=== PATIENT | female | born 1985 | race Caucasian/White ===

== ENCOUNTER 2023-05-11 22:40 | Emergency (ER) | payer OTHER, SELFPAY ==
[2023-05-11 22:53] VITALS: BP 139/80; PULSE 80; RESP 18; TEMP 36.6; O2SAT 97; BMI 48.2
--- NOTE | 2023-05-11 23:43 | ECG_ITS ---
The [facility] Test Date: 2023-05-11 Pat Name: NE DURHAM Department: Room: - Gender: Female Replacer: : 1985 Requested By: [id number] Order Number: [id number] Reading MD: ALEKSANDER GORMAN Measurements Intervals [place] Rate: 71 P: 69 GA: 164 QRS: 70 QRSD: 100 T: 48 QT: 382 QTc: 405 Interpretive Statements 1100 Sinus rhythm 9110 normal ECG No previous ECG available for comparison Electronically Signed On 05-12-2023 17:49:57 EDT by ALEKSANDER GORMAN
--- NOTE | 2023-05-11 23:43 | XR_ITS ---
The [address] [address] Patient Name: NE DURHAM MRN: [id number] date: 1985 Sex: F Assigned Patient Location: ER Current Patient Location: ER Accession/Order Number: [id number] Exam Date: 05/11/2023 23:45 Report Date: 05/12/2023 00:08 At the request of: CONCHITA VALDEZ Procedure: XR chest 1V CXR HISTORY: Shortness of breath. COMPARISON: None. TECHNIQUE: 1 view of the chest submitted for review. FINDINGS: The lungs are hyperaerated. Lines and tubes: None No acute focal infiltrate. Prominence of bronchopulmonary markings. No effusion. Cardiac silhouette measures within normal limits. Pulmonary vascularity is prominent. Osseous structures demonstrate postoperative changes of the thoracolumbar spine. XR/XR chest 1V IMPRESSION: Prominence of bronchopulmonary markings. Please correlate for viral pneumonia vs fluid overload. Electronically authenticated by: INGRID CAMACHO Date: 05/12/2023 00:08
[2023-05-11 23:59] LABS: Basophils Absolute Auto 0.1 10^3/uL (0.0-0.1); Basophils Percent Auto 0.4 % (0.2-2.0); Eosinophils Absolute Auto 0.1 10^3/uL (0.0-0.7); Eosinophils Percent Auto 0.9 % (0.9-7.0); Hematocrit 45.7 % (36.0-48.0); Hemoglobin 14.6 g/dL (12.0-16.0); Immature Granulocytes Abs Auto 0.05 10^3/uL (0.00-0.03); Immature Granulocytes Pct Auto 0.4 % (0.0-0.5); Lymphocytes Absolute Auto 3.1 10^3/uL (1.2-3.8); Lymphocytes Percent Auto 22.2 % (20.5-60.0); Mean Corpuscular HGB Conc 31.9 g/dL (29.9-35.2); Mean Corpuscular Hemoglobin 27.7 pg (26.7-34.0); Mean Corpuscular Volume 86.6 fL (81.0-99.0); Mean Platelet Volume 11.9 fL (9.5-13.5); Monocytes Absolute Auto 0.8 10^3/uL (0.3-0.8); Monocytes Percent Auto 5.9 % (1.7-12.0); Neutrophils Absolute Auto 9.8 10^3/uL (1.4-6.5); Neutrophils Percent Auto 70.2 % (43.0-75.0); Platelet Count 288 10^3/uL (150-450); Red Blood Count 5.28 10^6/uL (4.20-5.40); Red Cell Distribution Width 15.3 % (11.0-15.0)
[2023-05-12 00:16] LABS: Alanine Aminotransferase 27 U/L (14-59); Albumin Globulin Ratio 1.1; Albumin Level 3.8 g/dL (3.4-5.0); Alkaline Phosphatase 124 U/L (46-116); Anion Gap 9.6; Aspartate Amino Transferase 13 U/L (15-37); BUN Creatinine Ratio 22.1; Bilirubin Total 0.1 mg/dL (0.2-1.0); Calcium 8.7 mg/dL (8.5-10.1); Carbon Dioxide 27.5 mmol/L (21.0-32.0); Chloride 105 mmol/L (98-107); Estimated GFR (African America >60 (>=60); Estimated GFR (Non-African Ame >60 (>=60); Globulin 3.5 g/dL; Glucose 98 mg/dL (74-106); Potassium 4.1 mmol/L (3.5-5.1); Sodium 138 mmol/L (136-145); Total Protein 7.3 g/dL (6.4-8.2)
--- NOTE | 2023-05-12 00:20 | PC.NURSE ---
Patient states she is having chest pressure and becoming winded
[2023-05-12 00:29] VITALS: PULSE 71; RESP 18; O2SAT 97
[2023-05-12] MEDS: IPRATROPIUM/ALBUTEROL SULFATE 3 ML AMPUL.NEB IH (00:29)
[2023-05-12 00:36] VITALS: PULSE 76; RESP 20; O2SAT 96
[2023-05-12] MEDS: KETOROLAC TROMETHAMINE 30 MG/ML VIAL 15 MG IVP (01:07)
[2023-05-12] MEDS: AZITHROMYCIN 250 MG TABLET 500 MG PO (01:08)
--- NOTE | 2023-05-12 01:42 | ED.CHESTPAI1 ---
HPI - Chest Pain General Chief Complaint: Chest Pain Stated Complaint: chest pressure Time Seen by Provider: 05/11/23 23:42 Source: patient Mode of arrival: walk-in History of Present Illness HPI narrative: The patient presented to us with few days history of cough productive for whitish sputum associated with chest pain when taking a deep breath that is mostly to the right side of the chest, the patient also ran out of her inhaler she have history of smoking cigarettes within one pack per day No recent exposure to anybody with similar symptoms and the patient denying any abdominal pain nausea or vomiting She have history of CPAP and she thinks that the CPAP use increase her symptoms Related Data Previous Rx's Medication Instructions Recorded albuterol sulfate 90 mcg/actuation 1 inh inhalation Q6H PRN shortness 05/12/23 aerosol inhaler of breath or wheezing #6.7 grams azithromycin 250 mg tablet See Rx Instructions PO .COMPLEX #6 05/12/23 (Zithromax Z-Wolfgang) tabs guaifenesin 600 mg tablet, 600 mg PO BID PRN cough #10 tabs 05/12/23 extended release 12 hr (Mucinex) Allergies Allergy/AdvReac Type Severity Reaction Status Date / Time codeine Allergy Mild Rash Verified 05/11/23 22:53 Penicillins Allergy Unknown Verified 05/11/23 22:53 sulfamethoxazole AdvReac Mild itchy Verified 05/11/23 22:53 [From Bactrim] trimethoprim [From Bactrim] AdvReac Mild itchy Verified 05/11/23 22:53 Review of Systems ROS Status of ROS 10 or more systems reviewed and unremarkable except as noted in history and below PFSH PFSH Social History Smoking status: Current every day smoker Exam Narrative Exam Narrative: Nurses notes and vital signs reviewed and patient is not hypoxic. General: Well-appearing and in no apparent distress. Skin: Warm, dry, no pallor noted. No rash. Head: Normocephalic, atraumatic. Neck: Supple, non-tender. Eye: Pupils are equal, round and EOMI. No scleral icterus. Ears, Nose, Mouth, and Throat: TM are clear, no nasal mucosal hypertrophy. Oral mucosa is moist, no posterior oropharynx erythema, uvula is mid-line Cardiovascular: Regular Rate and Rhythm without murmur, gallop or rub. Respiratory: No accessory muscle use or respiratory distress. Lungs are clear to auscultation, no wheezing, rales or rhonchi Chest Wall: no tenderness Back: No midline thoracic or lumbar vertebral tenderness. No CVA tenderness Musculoskeletal: normal ROM, no calf or popliteal tenderness, no lower extremity edema/swelling GI: Abdomen is soft, non-distended. Normal bowel sounds. No masses appreciated. No tenderness to palpation. No rebound, guarding, or rigidity noted. Neurological: A&O x4. No cranial nerve dysfunction observed. No truncal ataxia. Moves all extremities. Sensation intact. Psychiatric: Cooperative and interactive. Normal mood and affect. Constitutional Vital Signs, click to edit/add: Last Vital Signs Temp 97.9 F 05/11/23 22:53 Pulse 76 05/12/23 00:36 Resp 20 05/12/23 00:36 BP 139/80 H 05/11/23 22:53 Pulse Ox 96 05/12/23 00:36 O2 Del Method Room Air 05/12/23 00:36 Course Vital Signs Vital signs: Vital Signs Temperature 97.9 F 05/11/23 22:53 Pulse Rate 80 05/11/23 22:53 Respiratory Rate 18 05/11/23 22:53 Blood Pressure 139/80 H 05/11/23 22:53 Pulse Oximetry 97 05/11/23 22:53 Oxygen Delivery Method Room Air 05/11/23 22:53 Temperature 97.9 F 05/11/23 22:53 Pulse Rate 76 05/12/23 00:36 Respiratory Rate 20 05/12/23 00:36 Blood Pressure 139/80 H 05/11/23 22:53 Pulse Oximetry 96 05/12/23 00:36 Oxygen Delivery Method Room Air 05/12/23 00:36 MDM - Chest Pain MDM Narrative Medical decision making narrative: EKG showing sinus rhythm with a heart rate of seventy-one no ST elevation or depression The patient's CBC and chemistry shows a leukocytosis otherwise insignificant Chest x-ray shows possible viral pneumonia and the patient troponin is negative The patient was provided with a breathing treatment in the Emergency Room after which she was feeling her pain is worse whenever she takes a deep breath The patient provided with Toradol in the Emergency Room as well as Z-Wolfgang discharge home with Z-Wolfgang as supportive care The patient is to followup with primary care physician in next 2-3 days or to return to the emergency department should any of the signs or symptoms worsen or new symptoms develop. The patient agrees with the following Diagnosis and Treatment plan and the patient will be discharged home. Lab Data Labs: Lab Results 05/11/23 Range/Units 23:50 WBC 14.0 H (4.0-11.0) 10^3/uL RBC 5.28 (4.20-5.40) 10^6/uL Hgb 14.6 (12.0-16.0) g/dL Hct 45.7 (36.0-48.0) % MCV 86.6 (81.0-99.0) fL MCH 27.7 (26.7-34.0) pg MCHC 31.9 (29.9-35.2) g/dL RDW 15.3 H (11.0-15.0) % Plt Count 288 (150-450) 10^3/uL MPV 11.9 (9.5-13.5) fL Neut % (Auto) 70.2 (43.0-75.0) % Lymph % (Auto) 22.2 (20.5-60.0) % Hodgeman % (Auto) 5.9 (1.7-12.0) % Eos % (Auto) 0.9 (0.9-7.0) % Baso % (Auto) 0.4 (0.2-2.0) % Neut # (Auto) 9.8 H (1.4-6.5) 10^3/uL Lymph # (Auto) 3.1 (1.2-3.8) 10^3/uL Hodgeman # (Auto) 0.8 (0.3-0.8) 10^3/uL Eos # (Auto) 0.1 (0.0-0.7) 10^3/uL Baso # (Auto) 0.1 (0.0-0.1) 10^3/uL Abs Immat Gran (auto) 0.05 H (0.00-0.03) 10^3/uL Imm/Tot Granulo (auto) 0.4 (0.0-0.5) % Sodium 138 (136-145) mmol/L Potassium 4.1 (3.5-5.1) mmol/L Chloride 105 (98-107) mmol/L Carbon Dioxide 27.5 (21.0-32.0) mmol/L Anion Gap 9.6 BUN 19.0 H (7.0-18.0) mg/dL Creatinine 0.86 (0.55-1.02) mg/dL Est GFR ( Amer) >60 (>=60) Est GFR (Non-Af Amer) >60 (>=60) BUN/Creatinine Ratio 22.1 Glucose 98 (74-106) mg/dL Calcium 8.7 (8.5-10.1) mg/dL Total Bilirubin 0.1 L (0.2-1.0) mg/dL AST 13 L (15-37) U/L ALT 27 (14-59) U/L Alkaline Phosphatase 124 H (46-116) U/L Troponin I High Sens 4.0 (4.0-51.3) pg/mL Total Protein 7.3 (6.4-8.2) g/dL Albumin 3.8 (3.4-5.0) g/dL Globulin 3.5 g/dL Albumin/Globulin Ratio 1.1 Discharge Plan Discharge Chief Complaint: Chest Pain Clinical Impression: Pneumonia Patient Disposition: Home, Self-Care Time of Disposition Decision: 00:57 Condition: Good Mode of Transportation: Private Vehicle Prescriptions / Home Meds: New guaifenesin [Mucinex] 600 mg tablet extended release 12hr 600 mg PO BID PRN (Reason: cough) Qty: 10 0RF azithromycin [Zithromax Z-Wolfgang] 250 mg tablet See Rx Instructions .ROUTE .COMPLEX Qty: 6 0RF Rx Instructions: For 250 mg dose pack: take 500 mg today (day 1), then 250 mg for 4 days (days 2-5) albuterol sulfate 90 mcg/actuation HFA aerosol inhaler 1 inh inhalation Q6H PRN (Reason: shortness of breath or wheezing) Qty: 6.7 0RF Instructions: Community Acquired Pneumonia (ED) Stand Alone Forms: Portal Instructions Referrals: Physician,Non-Staff, MD [Primary Care Provider] - 1 week
== END 2023-05-12 01:58 | disposition home or self-care (01) ==
PROVIDERS: Emergency Provider Emergency Medicine
DX: J18.9 Pneumonia, unspecified organism (principal); F17.210 Nicotine dependence, cigarettes, uncomplicated
CPT/HCPCS: 36415; 71045; 80053; 84484; 85025; 93005; 94640; 96374; 99285

== ENCOUNTER 2024-05-23 15:58 | Emergency (ER) | payer OTHER, SELFPAY ==
[2024-05-23] VITALS (14 sets, daily range): BP systolic 127–145; BP diastolic 64–75; PULSE 74–86; O2SAT 92–99; BMI 51.4
--- NOTE | 2024-05-23 16:08 | ED_ITS ---
HPI HPI - General Adult General Chief complaint: Shortness of Breath/Dyspnea Stated complaint: CHEST PAIN, SOB Time Seen by Provider: 05/23/24 16:03 Source: patient Mode of arrival: walk-in Limitations: no limitations History of Present Illness HPI narrative: 38-year-old female presents for shortness of breath. She has a history of asthma and ran out of her albuterol a few weeks ago. She has had no trauma or fever or productive cough. The pain seems to be on the left side of her chest and it comes and goes and she has had this for a long time. No vomiting or diarrhea. Related Data Home Medications ?Medication ?Instructions ?Recorded ?Confirmed alprazolam 1 mg tablet (Xanax) 1 mg PO BID PRN anxiety 05/23/24 05/23/24 aripiprazole 5 mg tablet 5 mg PO DAILY 05/23/24 05/23/24 dextroamphetamine-amphetamine 30 30 mg PO BID 05/23/24 05/23/24 mg tablet (Adderall) fluoxetine 40 mg capsule 40 mg PO DAILY 05/23/24 05/23/24 Previous Rx's ?Medication ?Instructions ?Recorded albuterol sulfate 90 mcg/actuation 2 inh inhalation Q4H PRN shortness 05/23/24 aerosol inhaler of breath or wheezing #8.5 grams albuterol sulfate 90 mcg/actuation 2 inh inhalation Q4H PRN shortness 05/23/24 aerosol inhaler of breath or wheezing #8.5 grams Allergies Allergy/AdvReac Type Severity Reaction Status Date / Time codeine Allergy Mild Rash Verified 05/11/23 22:53 Penicillins Allergy Unknown Verified 05/11/23 22:53 sulfamethoxazole AdvReac Mild itchy Verified 05/11/23 22:53 [From Bactrim] trimethoprim [From Bactrim] AdvReac Mild itchy Verified 05/11/23 22:53 Opioid HPI Opioid Management Most Recent Opioid Data: No Data to Display Review of Systems ROS Narrative A ten point review of systems is negative except as noted above. PFSH PFSH Social History Smoking status: Current every day smoker Exam Narrative Exam Narrative: Nurses note and vital signs reviewed and patient is not hypoxic. General: The patient appears in no apparent distress. She is speaking in full sentences. Skin: Warm, dry, no pallor noted. There is no rash noted. Head: Normocephalic, atraumatic Eye: Normal conjunctiva, no drainage Ears, Nose, Mouth, and Throat: oral mucosa is moist. Nares patent. Cardiovascular: Regular Rate and Rhythm Respiratory: Patient is in no distress, no accessory muscle use, lungs are clear to auscultation, no wheezing, rales or rhonchi. Good air movement present. Back: non-tender GI: Normal bowel sounds, no tenderness to palpation, no masses appreciated. No rebound, guarding, or rigidity noted. Musculoskeletal: The patient has no evidence of calf tenderness, no pitting edema, symmetrical pulses noted bilaterally Neurological: A&O, normal speech Psychiatric: Cooperative Constitutional Vital Signs, click to edit/add: Last Vital Signs Pulse 86 05/23/24 17:50 Resp 21 H 05/23/24 17:50 BP 127/64 05/23/24 17:30 Pulse Ox 95 05/23/24 17:50 O2 Del Method Room Air 05/23/24 16:14 Course Vital Signs Vital signs: Vital Signs Pulse Rate 79 05/23/24 16:03 Respiratory Rate 18 05/23/24 16:03 Blood Pressure 133/75 05/23/24 16:03 Pulse Oximetry 96 05/23/24 16:03 Oxygen Delivery Method Room Air 05/23/24 16:03 Pulse Rate 86 05/23/24 17:50 Respiratory Rate 21 H 05/23/24 17:50 Blood Pressure 127/64 05/23/24 17:30 Pulse Oximetry 95 05/23/24 17:50 Oxygen Delivery Method Room Air 05/23/24 16:14 Medical Decision Making [facility] Narrative Medical decision making narrative: Chest x-ray report is reviewed. She has no pneumonia type symptoms and I have no clinical suspicion of pneumonia. Her workup otherwise is negative and she is prescribed albuterol. She states she is trying to get a new family doctor so she can have her Adderall and Xanax prescribed. She is able to be discharged home. Treatment diagnosis and follow-up were discussed with the patient. Differential Diagnosis Differential Diagnosis: Asthma, pneumothorax, atypical chest pain Imaging Data Chest x-ray: Radiologist's impression: ITS Impressions Chest X-Ray 05/23/24 16:08 IMPRESSION: Interstitial opacity in the right lung base. Please correlate for pneumonia versus atelectasis. Electronically authenticated by: INGRID CAMACHO Date: 05/23/2024 17:30 ECG Data Attestation: I personally reviewed and interpreted this ECG as follows: (EKG on my interpretation shows normal sinus rhythm without acute change and rate of 73.) Discharge Plan Discharge Stand Alone Forms: Portal Instructions Chief Complaint: Shortness of Breath/Dyspnea Clinical Impression: Dyspnea, Chest pain Patient Disposition: Home, Self-Care Time of Disposition Decision: 17:57 Condition: Good Mode of Transportation: Private Vehicle Prescriptions / Home Meds: New albuterol sulfate 90 mcg/actuation HFA aerosol inhaler 2 inh inhalation Q4H PRN (Reason: shortness of breath or wheezing) Qty: 8.5 0RF albuterol sulfate 90 mcg/actuation HFA aerosol inhaler 2 inh inhalation Q4H PRN (Reason: shortness of breath or wheezing) Qty: 8.5 0RF Discontinued albuterol sulfate 90 mcg/actuation HFA aerosol inhaler 2 puff INHALATION Q4H PRN (Reason: shortness of breath or wheezing) No Action aripiprazole 5 mg tablet 5 mg PO DAILY fluoxetine 40 mg capsule 40 mg PO DAILY dextroamphetamine-amphetamine [Adderall] 30 mg tablet 30 mg PO BID Rx Instructions: administer doses at least 4-6 hours apart alprazolam [Xanax] 1 mg tablet 1 mg PO BID PRN (Reason: anxiety) Print Language: Latvian Instructions: Chest Pain (ED), Asthma (ED) Referrals: Physician,Non-Staff, MD [Primary Care Provider] - 1 week
--- NOTE | 2024-05-23 16:08 | ECG_ITS ---
The [facility] Test Date: 2024-05-23 Pat Name: NE DURHAM Department: Room: - Gender: Female Manager Of Patient: : 1985 Requested By: Order Number: [id number] Reading MD: ALEKSANDER GORMAN Measurements Intervals [place] Rate: 73 P: 60 MD: 158 QRS: 78 QRSD: 98 T: 50 QT: 380 QTc: 406 Interpretive Statements 1100 Sinus rhythm 2420 RSR (QR) in lead V1/V2, consistent with right ventricular conduction delay 9130 borderline ECG Compared to ECG 05/11/2023 23:03:49 No significant changes Electronically Signed On 05-24-2024 16:48:19 EDT by ALEKSANDER GORMAN
--- NOTE | 2024-05-23 16:08 | XR_ITS ---
The [address] [address] Patient Name: NE DURHAM MRN: [id number] date: 1985 Sex: F Assigned Patient Location: ER Current Patient Location: ER Accession/Order Number: [id number] Exam Date: 05/23/2024 16:25 Report Date: 05/23/2024 17:30 At the request of: LISA DIAZ Procedure: XR chest 1V CXR HISTORY: Shortness of breath left-sided chest pain with fatigue. Patient ran out of his asthma medication/inhaler 2 weeks ago. COMPARISON: 05/11/2023 chest x-ray TECHNIQUE: 1 view chest submitted for review. FINDINGS: The lungs are adequately expanded without evidence of acute infiltrate or effusion. The cardiac silhouette measures within normal. Pulmonary vascularity is unremarkable. Osseous structures demonstrate postoperative changes of the spine. XR/XR chest 1V IMPRESSION: Interstitial opacity in the right lung base. Please correlate for pneumonia versus atelectasis. Electronically authenticated by: INGRID CAMACHO Date: 05/23/2024 17:30
[2024-05-23] MEDS: ALBUTEROL SULFATE 2.5 MG/3 ML VIAL NEB IH (16:14)
== END 2024-05-23 18:09 | disposition home or self-care (01) ==
PROVIDERS: Emergency Provider Emergency Medicine
DX: R06.00 Dyspnea, unspecified (principal); R07.9 Chest pain, unspecified; J45.909 Unspecified asthma, uncomplicated; F17.210 Nicotine dependence, cigarettes, uncomplicated
CPT/HCPCS: 71045; 93005; 94640; 99284

== ENCOUNTER 2024-08-20 19:35 | Emergency (ER) | payer OTHER, SELFPAY ==
[2024-08-20 19:41] VITALS: BP 138/78; PULSE 80; TEMP 36.7; O2SAT 97; BMI 53.1
--- OUTSIDE RECORDS SUMMARY | 2024-08-20 19:44 | XMS_ITS | CCD ---
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 Translations: [Patellofemoral disorders, left knee] Chronic Menstrual disorders (20 sources) Menometrorrhagia; Translations: [Excessive and frequent menstruation with irregular cycle] 05-30-2022 Chronic Mood disorders (6 sources) Bipolar disorder; Translations: [Depressive disorder] 02-28-2023 Chronic Mycoses (1 source) Candidal intertrigo; Translations: [Candidiasis of skin and nail] 03-31-2024 Episodic Nausea and vomiting (12 sources) Nausea and vomiting; Translations: [Nausea with vomiting, unspecified] 12-28-2022 Episodic Nonmalignant breast conditions (4 sources) Fibroadenosis of breast; Translations: [Breast fibroadenosis] Chronic Nonspecific chest pain (20 sources) Chest pain; Translations: [Chest pain, unspecified] Onset: 4 01-26-2020 Episodic Open wounds of extremities (14 sources) Laceration of finger; Translations: [Laceration without foreign body of other finger without damage to nail, initial encounter] 12-24-2022 Episodic Other acquired deformities (4 sources) Acquired unequal leg length; Translations: [Unequal limb length (acquired), unspecified femur] Episodic Other aftercare (1 source) Other termite treater (current) drug therapy; Translations: [OTH LONG-TERM CURRENT DRUG THERAPY] Onset: 3 Episodic Other and unspecified benign neoplasm (20 sources) Benign teratoma of ovary; Translations: [Benign neoplasm of unspecified ovary] 02-22-2022 Episodic Other bone disease and musculoskeletal deformities (1 source) Idiopathic kyphoscoliosis; Translations: [Other idiopathic scoliosis, site unspecified] Onset: 9 02-24-2009 Chronic Other connective tissue disease (6 sources) Pain in lower limb; Translations: [Pain in right leg] 03-06-2023 Episodic Other female genital disorders (20 sources) Abnormal uterine bleeding; Translations: [Other specified abnormal uterine and vaginal bleeding] 05-29-2022 Chronic Other female genital disorders (20 sources) Moderate vaginal bleeding; Translations: [Other specified abnormal uterine and vaginal bleeding] 02-04-2018 Chronic Other female genital disorders (20 sources) Abnormal vaginal bleeding; Translations: [Abnormal uterine and vaginal bleeding, unspecified] 06-05-2022 Chronic Other female genital disorders (20 sources) Vaginal bleeding; Translations: [Abnormal uterine and vaginal bleeding, unspecified] 05-28-2021 Chronic Other female genital disorders (7 sources) Other specified abnormal uterine and vaginal bleeding; Translations: [Other disorders of menstruation and other abnormal bleeding from female genital tract] 05-30-2022 Chronic Other gastrointestinal disorders (20 sources) Pale feces; Translations: [Other fecal abnormalities] 11-26-2020 Episodic Other lower respiratory disease (4 sources) Dyspnea; Translations: [Shortness of breath] 05-20-2023 Episodic Other nervous system disorders (1 source) Chronic pain syndrome; Translations: [Chronic pain syndrome] Onset: 4 04-12-2014 Chronic Other nervous system disorders (1 source) Other acute postprocedural pain; Translations: [Other acute postprocedural pain] Onset: 8 Episodic Other nervous system disorders (19 sources) Acute postoperative pain; Translations: [Other acute postprocedural pain] 07-09-2022 Episodic Other nervous system disorders (4 sources) Paresthesia; Translations: [Paresthesia of skin] 03-18-2023 Episodic Other non-traumatic joint disorders (17 sources) Pain in elbow; Translations: [Pain in unspecified elbow] 08-04-2022 Episodic Other non-traumatic joint disorders (5 sources) Pain in left knee; Translations: [Acute pain of left knee] Episodic Other nutritional; endocrine; and metabolic disorders (1 source) Obesity; Translations: [Obesity, unspecified] Onset: 8 08-20-2018 Chronic Other nutritional; endocrine; and metabolic disorders (13 sources) Morbid obesity; Translations: [Morbid (severe) obesity due to excess calories] 01-15-2023 Chronic Other nutritional; endocrine; and metabolic disorders (3 sources) Body mass index 40+ - severely obese; Translations: [Morbid (severe) obesity due to excess calories] Chronic Other nutritional; endocrine; and metabolic disorders (1 source) Morbid (severe) obesity due to excess calories Chronic Other screening for suspected conditions (not mental disorders or infectious disease) (12 sources) Electrocardiogram abnormal; Translations: [Abnormal electrocardiogram [ECG] [EKG]] 12-28-2022 Episodic Residual codes; unclassified (6 sources) Obstructive sleep apnea syndrome; Translations: [Obstructive sleep apnea (adult) (pediatric)] Chronic Residual codes; unclassified (1 source) Obstructive sleep apnea (adult) (pediatric) Chronic Residual codes; unclassified (14 sources) Tobacco user; Translations: [Tobacco use] Onset: 8 01-02-2018 Episodic Residual codes; unclassified (12 sources) Sleep deprivation; Translations: [Sleep deprivation] 12-28-2022 Episodic Residual codes; unclassified (1 source) Chronic back pain 02-28-2023 Episodic Skin and subcutaneous tissue infections (2 sources) Paronychia; Translations: [Paronychia] Onset: 4 03-01-2024 Episodic Spondylosis; intervertebral disc disorders; other back problems (9 sources) Bilateral inflammation of sacroiliac joint; Translations: [Sacroiliitis, not elsewhere classified] Onset: 8 08-20-2018 Chronic Spondylosis; intervertebral disc disorders; other back problems (20 sources) Low back pain; Translations: [Lumbago] Onset: 9 02-24-2009 Episodic Sprains and strains (18 sources) Strain of neck muscle; Translations: [Strain of muscle, fascia and tendon at neck level, initial encounter] 07-14-2022 Episodic Substance-related disorders (6 sources) Nicotine dependence, cigarettes, uncomplicated; Translations: [Smoker] Onset: 3 02-28-2023 Chronic Comment on above: Added secondary to d ocumentation in Social History. Superficial injury; contusion (20 sources) Contusion of left lower leg; Translations: [Contusion of left lower leg, initial encounter] 02-13-2022 Episodic Urinary tract infections (20 sources) Pyelonephritis; Translations: [Tubulo-interstitial nephritis, not specified as acute or chronic] 02-23-2022 Episodic Viral infection (20 sources) Disease caused by 2019-nCoV; Translations: [COVID-19] 05-31-2022 Episodic Past or Other Problems Problem Classification Problem Date Documented Date Episodic/Chronic Abdominal pain (20 sources) Chronic pelvic pain of female; Translations: [Pelvic and perineal pain] Onset: 11-15-2023 05-30-2022 Episodic Cancer of cervix (2 sources) Carcinoma in situ of cervix, unspecified; Translations: [Cervical intraepithelial neoplasia grade III with severe dysplasia] Onset: 12-30-2017 03-03-2018 Episodic Genitourinary symptoms and ill-defined conditions (1 source) Frequency of micturition; Translations: [Frequency of micturition] Onset: 11-15-2023 Episodic Malaise and fatigue (20 sources) Fatigue; Translations: [Other fatigue] Onset: 05-12-2023 06-05-2022 Episodic Other connective tissue disease (1 source) H/O: musculoskeletal disease; Translations: [Personal history of other diseases of the musculoskeletal system and connective tissue] Onset: 04-12-2014 04-12-2014 Episodic Other connective tissue disease (1 source) Muscle pain; Translations: [Myalgia and myositis, unspecified] Onset: 04-12-2014 04-12-2014 Episodic Other connective tissue disease (1 source) History of fusion of thoracic spine; Translations: [Arthrodesis status] Onset: 08-20-2018 08-20-2018 Episodic Other ear and sense organ disorders (3 sources) Otalgia, left ear; Translations: [OTALGIA LEFT EAR] Onset: 11-08-2022 Episodic Other ear and sense organ disorders (1 source) Impacted cerumen, left ear; Translations: [IMPACTED CERUMEN LEFT EAR] Onset: 11-09-2022 Episodic Other lower respiratory disease (1 source) Shortness of breath; Translations: [Shortness of breath] Onset: 05-12-2023 Episodic Other upper respiratory infections (20 sources) Upper respiratory infection; Translations: [Acute upper respiratory infection, unspecified] Onset: 08-04-2023 04-07-2022 Episodic Otitis media and related conditions (1 source) Otitis media, unspecified, right ear; Translations: [OTITIS MEDIA UNSPECIFIED RIGHT EAR] Onset: 11-09-2022 Episodic Residual codes; unclassified (1 source) History of clinical finding in subject; Translations: [Patient's noncompliance with other medical treatment and regimen] Onset: 04-12-2014 04-12-2014 Episodic Results Test Name Value Interpretation Reference Range Facility Activated partial thrombopla stin time (aPTT) in platelet poor plasma by coagulation aOrdered By: Keith Oseguera on 03-31-2024 aPTT Coag (PPP) [Time] 30.4 s 25.1-36.5 [facility] Comment on above: A hematocrit value g reater than 55% may lead to inaccurate results in coagulation testing. Patients having hematocrit values >55% require a special collection tube for coagulation studies. Please contact the laboratory at [phone] for redraw instructions. Automated basophil %Ordered By: Keith Oseguera on 03-31-2024 Basophils/100 WBC (Bld) 1.2 % Normal . [facility] Comment on above: Performed By: #### P TT, CK, BNP, BMP, PT, CBC, HS TROP #### [facility] [address] [place] [address] Automated basophil countOrde red By: Keith Oseguera on 03-31-2024 Basophils (Bld) [#/Vol] 0.1 10*3/uL Normal 0.0-0.2 [facility] Comment on above: Result Comment: PERF ORMED BY: [place] [address] PATHOLOGIST PERSONAL FINANCIAL COUNSELOR GUERLINE STANLEY M.D. Performed By: #### P TT, CK, BNP, BMP, PT, CBC, HS TROP #### [address] Automated blood monocyte cou ntOrdered By: Keith Oseguera on 03-31-2024 Monocytes (Bld) [#/Vol] 0.7 10*3/uL Normal 0.0-0.8 [facility] Comment on above: Performed By: #### P TT, CK, BNP, BMP, PT, CBC, HS TROP #### [address] Automated eosinophil %Ordere d By: Keith Oseguera on 03-31-2024 Eosinophils/100 WBC (Bld) 1.3 % Normal . [facility] Comment on above: Performed By: #### P TT, CK, BNP, BMP, PT, CBC, HS TROP #### [address] Automated eosinophil countOr dered By: Keith Oseguera on 03-31-2024 Eosinophils (Bld) [#/Vol] 0.1 10*3/uL Normal 0.0-0.45 [facility] Comment on above: Performed By: #### P TT, CK, BNP, BMP, PT, CBC, HS TROP #### [address] Automated monocyte %Ordered By: Keith Oseguera on 03-31-2024 Monocytes/100 WBC (Bld) 7.0 % Normal . [facility] Comment on above: Performed By: #### P TT, CK, BNP, BMP, PT, CBC, HS TROP #### [address] Automated neutrophil %Ordere d By: Keith Oseguera on 03-31-2024 Neutrophils/100 WBC (Bld) 61.4 % Normal . [facility] Comment on above: Performed By: #### P TT, CK, BNP, BMP, PT, CBC, HS TROP #### [address] BNP ser/plasOrdered By: Kg Oseguera on 03-31-2024 Natriuretic peptide B (Bld) [Mass/Vol] 10.0 pg/mL Normal 5-100 [facility] Comment on above: Result Comment: PERF ORMED BY: [place] [address] PATHOLOGIST PERSONAL FINANCIAL COUNSELOR GUERLINE STANLEY M.D. Performed By: #### P TT, CK, BNP, BMP, PT, CBC, HS TROP #### [address] Basic Metabolic Panelon Creatinine Clr Calc Pharmacy 171.54 Normal [facility] Comment on above: Result Comment: PERF ORMED BY: [place] [address] PATHOLOGIST PERSONAL FINANCIAL COUNSELOR GUERLINE STANLEY M.D. Performed By: #### P TT, CK, BNP, BMP, PT, CBC, HS TROP #### [place] [id number] [facility] GFR/1.73 sq M.predicted MDRD (S/P/Bld) [Vol rate/Area] mL/min/{1.73_m2} Normal [facility] Comment on above: Performed By: #### P TT, CK, BNP, BMP, PT, CBC, HS TROP #### [place] [id number] [facility] Bilirubin Test strip Ql (U)O rdered By: Keith Oseguera on 03-31-2024 Bilirubin Ql (U) Negative Negative [facility] COVID CepheidOrdered By: Dusty Oseguera on 03-31-2024 SARS-CoV-2 (COVID-19) Ab IA Ql Negative Negative [facility] Comment on above: This is a duplicate Cepheid Xpert Xpress CoV-2/Flu/RSV Plus RNA by RT-PCR result to be used for statistical tracking purpose only. SARS-CoV-2 (COVID-19) RNA JUDIT+probe Ql (Unsp spec) [facility] COVID-19 / Flu A/B / RSV PCR on 03-31-2024 SARS-CoV-2 (COVID-19) RNA JUDIT+probe Ql (Unsp spec) COVID-19 Cepheid Result Negative for SARS-CoV-2 RNA by RT-PCR Flu A Cepheid Result Negative for Flu A RNA by RT-PCR Flu B Cepheid Result Negative for Flu B RNA by RT-PCR RSV Cepheid Result Negative for RSV RNA by RT-PCR COVID19 Blank Space Reference: Negative COVID19 Blank Space Cepheid Disclaimer The Cepheid Xpert Xpress CoV-2/Flu/RSV Plus has Cepheid Disclaimer not been FDA cleared or approved; this test has Cepheid Disclaimer been authorized by FDA under an EUA for use by Cepheid Disclaimer authorized laboratories; this test has been Cepheid Disclaimer authorized only for the simultaneous qualitative Cepheid Disclaimer detection and differentiation of nucleic acids from Cepheid Disclaimer SARS-CoV-2, influenza A, influenza B, and Cepheid Disclaimer respiratory syncytial virus (RSV), and not for any Cepheid Disclaimer other viruses or pathogens; and this test is only Cepheid Disclaimer authorized for the duration of the declaration that Cepheid Disclaimer circumstances exist justifying the authorization of Cepheid Disclaimer emergency use of in vitro diagnostic tests for Cepheid Disclaimer detection and/or diagnosis of COVID-19 under Cepheid Disclaimer Section 564(b)(1) of the Act, 21 U.S.C. 360bbb- Cepheid Disclaimer 3(b)(1), unless the authorization is terminated or Cepheid Disclaimer revoked sooner. PERFORMED BY: [facility] [address] [place] [address] PATHOLOGIST PERSONAL FINANCIAL COUNSELOR GUERLINE STANLEY M.D. Normal [facility] Comment on above: Performed By: #### C EPHEID NEG, COVID19 FLU RSV #### [facility] [address] [place] [address] [facility] Calcium [Mass/volume] in Ser um or PlasmaOrdered By: Keith Oseguera on 06-04-2024 Calcium [Mass/Vol] 9.5 mg/dL Normal 8.6-10.3 [facility] Comment on above: Performed By: #### P TT, CK, BNP, BMP, PT, CBC, HS TROP #### [address] Carbon dioxide, total [Moles /volume] in Serum or PlasmaOrdered By: Keith Oseguera on 03-31-2024 CO2 [Moles/Vol] 26.8 mmol/L Normal 21.0-31.0 [facility] Comment on above: Performed By: #### P TT, CK, BNP, BMP, PT, CBC, HS TROP #### [facility] [address] [place] [address] Cepheid COVID PCR Negativeon 03-31-2024 SARS-CoV-2 (COVID-19) RNA JUDIT+probe Ql (Unsp spec) Negative Normal Negative [facility] Comment on above: Result Comment: This is a duplicate Cepheid Xpert Xpress CoV-2/Flu/RSV Plus RNA by RT-PCR result to be used for statistical tracking purpose only. PERFORMED BY: [place] [address] PATHOLOGIST PERSONAL FINANCIAL COUNSELOR GUERLINE STANLEY M.D. Performed By: #### C EPHEID NEG, COVID19 FLU RSV #### [address] Chlamydia/GC Amplificationon 03-31-2024 Chlamydia Trachomotis, JUDIT Negative Normal Negative [facility] Comment on above: Performed By: #### U HCG, UA #### [address] Neisseria Gonorrhoeae, JUDIT Negative Normal Negative [facility] Comment on above: Result Comment: Perf ormed at: =G - [facility] [address] [id number] Manager Technology: Miryam Olsen MD, Phone: [phone] PERFORMED BY: [place] [address] PATHOLOGIST PERSONAL FINANCIAL COUNSELOR GUERLINE STANLEY M.D. Performed By: #### U HCG, UA #### [address] Chloride [Moles/volume] in S gale or PlasmaOrdered By: Keith Oseguera on 03-31-2024 Chloride [Moles/Vol] 103 mmol/L Normal 98-107 [facility] Comment on above: Performed By: #### P TT, CK, BNP, BMP, PT, CBC, HS TROP #### [address] Color of Urine by AutoOrdere d By: Keith Oseguera on 03-31-2024 Color (U) Light-yellow Normal Yellow [facility] Comment on above: Order Comment: Name Collection Type:: Clean-Voided Midstream Performed By: #### U HCG, UA #### [address] Complete Blood Count Auto Di ffon 03-31-2024 Mean Corpuscular HGB Conc 32.9 g/dL Normal 32.0-35.0 [facility] Comment on above: Performed By: #### P TT, CK, BNP, BMP, PT, CBC, HS TROP #### [address] Monocytes/100 WBC (Bld) 17.93 % Normal 0.00-20.00 [facility] Comment on above: Performed By: #### P TT, CK, BNP, BMP, PT, CBC, HS TROP #### [address] NRBC% 0.1 /100{WBC} Normal 0-0.5 [facility] Comment on above: Performed By: #### P TT, CK, BNP, BMP, PT, CBC, HS TROP #### [address] Creatine kinase [Enzymatic a ctivity/volume] in Serum or PlasmaOrdered By: Keith Oseguera on 03-31-2024 CK [Catalytic activity/Vol] 83 U/L Normal 30-223 [facility] Comment on above: Performed By: #### C EPHEID NEG, COVID19 FLU RSV #### [facility] [address] Creatinine [Mass/volume] in Serum or PlasmaOrdered By: Keith Oseguera on 03-31-2024 Creatinine [Mass/Vol] 0.59 mg/dL Low 0.60-1.20 [facility] Comment on above: Performed By: #### P TT, CK, BNP, BMP, PT, CBC, HS TROP #### [facility] [address] Erythrocyte distribution wid th [Ratio] by Automated countOrdered By: Keith Oseguera on 03-31-2024 Erythrocyte distribution width (RBC) [Ratio] 14.4 % Normal 11.9-15.3 [facility] Comment on above: Performed By: #### P TT, CK, BNP, BMP, PT, CBC, HS TROP #### [address] Erythrocytes [#/volume] in B lood by Automated countOrdered By: Keith Oseguera on 03-31-2024 RBC (Bld) [#/Vol] 5.36 10*6/uL High 3.60-5.00 [facility] Comment on above: Performed By: #### P TT, CK, BNP, BMP, PT, CBC, HS TROP #### [address] Glucose [Mass/volume] in Ser um or PlasmaOrdered By: Keith Oseguera on 03-31-2024 Glucose [Mass/Vol] 106 mg/dL High 70-100 [facility] Comment on above: ADA recommended refe rence rangeRandom Glucose Reference Range is dependent on time and content of last meal. Glucose of more than 200 mg/dL in a nonstressed, ambulatory subject supports the diagnosis of Diabetes Mellitus. Result Comment: [place] om Glucose Reference Range is dependent on time and content of last meal. Glucose of more than 200 mg/dL in a nonstressed, ambulatory subject supports the diagnosis of Diabetes Mellitus. ADA recommended reference range Performed By: #### P TT, CK, BNP, BMP, PT, CBC, HS TROP #### [facility] [address] [place] [address] [place] Glucose [Mass/volume] in Uri ne by Test stripOrdered By: Keith Osgeuera on 03-31-2024 Glucose Test strip (U) [Mass/Vol] Normal mg/dL Normal [facility] HCG ( test) IA.rapi d Ql (U)Ordered By: Keith Oseguera on 03-31-2024 HCG ( test) Ql (U) Negative [facility] HCG,Urineon 03-31-2024 Beta HCG ( test) Ql (U) Negative Normal [facility] Comment on above: Order Comment: Name Collection Type:: Clean-Voided Midstream Result Comment: PERF ORMED BY: [place] [address] PATHOLOGIST PERSONAL FINANCIAL COUNSELOR GUERLINE STANLEY M.D. Performed By: #### U HCG, UA #### [address] Hematocrit [Volume Fraction] of Blood by Automated countOrdered By: Keith Oseguera on 03-31-2024 Hematocrit (Bld) [Volume fraction] 45.3 % Normal 34.0-46.4 [facility] Comment on above: Performed By: #### P TT, CK, BNP, BMP, PT, CBC, HS TROP #### [address] Hemoglobin Test strip Ql (U) Ordered By: Keith Oseguera on 03-31-2024 Hemoglobin Ql (U) Negative Negative [facility] Hemoglobin [Mass/volume] in BloodOrdered By: Keith Oseguera on 03-31-2024 Hemoglobin (Bld) [Mass/Vol] 14.9 g/dL Normal 11.8-15.4 [facility] Comment on above: Performed By: #### P TT, CK, BNP, BMP, PT, CBC, HS TROP #### [place] [address] [place] INR in Platelet poor plasma by Coagulation assayOrdered By: Keith Oseguera on 03-31-2024 INR Coag (PPP) [Relative time] 1.0 {INR} Normal [facility] Comment on above: INR Therapeutic Rang e A) Pre- and Peroperative OAT started two weeks before surgery. NOT HIP SURGERY: 1.5 - 2.5 HIP SURGERY: 2 - 3B) Primary and secondary prevention of venous THROMBOSIS: 2 - 3C) Active venous thrombosis, pulmonary embolismand prevention of recurrent venous thrombosis: 2 - 3D) Prevention of arterial thromboembolismincluding patients with mechanical heart valves: 3 - 4.5 Result Comment: INR Therapeutic Range A) Pre- and Peroperative OAT started two weeks before surgery. NOT HIP SURGERY: 1.5 - 2.5 HIP SURGERY: 2 - 3 B) Primary and secondary prevention of venous THROMBOSIS: 2 - 3 C) Active venous thrombosis, pulmonary embolism and prevention of recurrent venous thrombosis: 2 - 3 D) Prevention of arterial thromboembolism including patients with mechanical heart valves: 3 - 4.5 Performed By: #### C EPHEID NEG, COVID19 FLU RSV #### [facility] [address] [place] [address] [place] Ketones [Presence] in Urine by Test stripOrdered By: Keith Oseguera on 03-31-2024 Ketones Ql (U) Negative Normal Negative [facility] Comment on above: Order Comment: Name Collection Type:: Clean-Voided Midstream Performed By: #### U HCG, UA #### [facility] [address] [place] [address] [place] Leukocyte esterase [Presence ] in Urine by Test stripOrdered By: Keith Oseguera on 03-31-2024 Leukocyte esterase Test strip Ql (U) Negative Normal Negative [facility] Comment on above: Order Comment: Name Collection Type:: Clean-Voided Midstream Performed By: #### U HCG, UA #### [facility] [address] [place] [address] [place] Leukocytes [#/volume] correc taurus for nucleated erythrocytes in Blood by Automated counOrdered By: Keith Oseguera on 03-31-2024 WBC corrected for nucl RBC Auto (Bld) [#/Vol] 10.0 10*3/uL 3.8-11.6 [facility] Leukocytes [#/volume] in Blo od by Automated countOrdered By: Keith Oseguera on 03-31-2024 WBC (Bld) [#/Vol] 10.0 10*3/uL Normal 3.8-11.6 [facility] Comment on above: Performed By: #### P TT, CK, BNP, BMP, PT, CBC, HS TROP #### [address] Lymphocytes [#/volume] in Bl ood by Automated countOrdered By: Keith Oseguera on 03-31-2024 Lymphocytes (Bld) [#/Vol] 2.9 10*3/uL Normal 1.00-4.8 [facility] Comment on above: Performed By: #### P TT, CK, BNP, BMP, PT, CBC, HS TROP #### [place] [address] [place] Lymphocytes/100 leukocytes i n Blood by Automated countOrdered By: Keith Oseguera on 03-31-2024 Lymphocytes/100 WBC (Bld) 29.1 % Normal . [facility] Comment on above: Performed By: #### P TT, CK, BNP, BMP, PT, CBC, HS TROP #### [facility] [address] [place] [address] MCH [Entitic mass] by Automa taurus countOrdered By: Keith Oseguera on 03-31-2024 MCH (RBC) [Entitic mass] 27.8 pg Normal 24.7-34.3 [facility] Comment on above: Performed By: #### P TT, CK, BNP, BMP, PT, CBC, HS TROP #### [address] MCHC Auto (RBC) [Mass/Vol]Or dered By: Keith Oseguera on 03-31-2024 MCHC (RBC) [Mass/Vol] 32.9 g/dL 32.0-35.0 [facility] MCV [Entitic volume] by Auto mated countOrdered By: Keith Oseguera on 03-31-2024 MCV (RBC) [Entitic vol] 84.4 fL Normal 80-100 [facility] Comment on above: Performed By: #### P TT, CK, BNP, BMP, PT, CBC, HS TROP #### [facility] [address] [place] [address] [place] Monocyte distribution width [Entitic volume] in Blood by AutomatedOrdered By: Keith Oseguera on 03-31-2024 Monocyte distribution width Auto (Bld) [Entitic vol] 17.93 % 0.00-20.00 [facility] Neutrophils [#/volume] in Bl ood by Automated countOrdered By: Keith Oseguera on 03-31-2024 Neutrophils (Bld) [#/Vol] 6.1 10*3/uL Normal 1.8-7.7 [facility] Comment on above: Performed By: #### P TT, CK, BNP, BMP, PT, CBC, HS TROP #### [facility] [address] Nitrite Test strip Ql (U)Ord ered By: Keith Oseguera on 03-31-2024 Nitrite Ql (U) Negative Negative [facility] No Panel InformationOrdered By: Keith Oseguera on 03-31-2024 Estimated GFR (CKD-EPI) > 60.0 mL/Min [facility] Creatinine Clearance (Chem 171.54 [facility] Nucleated erythrocytes [Pres ence] in Blood by Automated countOrdered By: Keith Oseguera on 03-31-2024 Nucleated RBC Auto Ql (Bld) 0.1 /100{WBC} 0-0.5 [facility] Partial Thromboplastin Timeo n 03-31-2024 aPTT Coag (Bld) [Time] 30.4 s Normal 25.1-36.5 Th e [facility] Comment on above: Result Comment: A he matocrit value greater than 55% may lead to inaccurate results in coagulation testing. Patients having hematocrit values >55% require a special collection tube for coagulation studies. Please contact the laboratory at [phone] for redraw instructions. PERFORMED BY: [facility] [address] [facility] [place] [place] [address] PATHOLOGIST PERSONAL FINANCIAL COUNSELOR GUERLINE STANLEY M.D. Performed By: #### C EPHEID NEG, COVID19 FLU RSV #### [facility] [address] [place] [id number] [place] Platelet mean volume [Entiti c volume] in Blood by Automated countOrdered By: Keithradha Oseguera on 03-31-2024 Platelet mean volume (Bld) [Entitic vol] 9.4 fL Normal 6.3-10.7 [facility] Comment on above: Performed By: #### P TT, CK, BNP, BMP, PT, CBC, HS TROP #### [facility] [address] Platelets [#/volume] in Bloo d by Automated countOrdered By: Keith Oseguera on 03-31-2024 Platelets (Bld) [#/Vol] 277 10*3/uL Normal 150-450 [facility] Comment on above: Performed By: #### P TT, CK, BNP, BMP, PT, CBC, HS TROP #### [facility] [address] Potassium [Moles/volume] in Serum or PlasmaOrdered By: Keith Oseguera on 03-31-2024 Potassium [Moles/Vol] 3.7 mmol/L Normal 3.5-5.1 [facility] Comment on above: Performed By: #### P TT, CK, BNP, BMP, PT, CBC, HS TROP #### [facility] [address] [place] [id number] [facility] Protein Test strip (U) [Mass /Vol]Ordered By: Keith Oseguera on 03-31-2024 Protein (U) [Mass/Vol] Negative Negative [facility] Prothrombin time (PT)Ordered By: Keith Oseguera on 03-31-2024 PT Coag (PPP) [Time] 11.1 s Normal 9.0-12.9 [facility] Comment on above: A hematocrit value g reater than 55% may lead to inaccurate results in coagulation testing. Patients having hematocrit values >55% require a special collection tube for coagulation studies. Please contact the laboratory at [phone] for redraw instructions. Result Comment: A he matocrit value greater than 55% may lead to inaccurate results in coagulation testing. Patients having hematocrit values >55% require a special collection tube for coagulation studies. Please contact the laboratory at [phone] for redraw instructions. Performed By: #### C EPHEID NEG, COVID19 FLU RSV #### [address] Serum or plasma anion gap de terminationOrdered By: Keith Oseguera on 03-31-2024 Anion gap [Moles/Vol] 9.9 mmol/L Normal 6.0-15.0 [facility] Comment on above: Performed By: #### P TT, CK, BNP, BMP, PT, CBC, HS TROP #### [address] Sodium [Moles/volume] in Ser um or PlasmaOrdered By: Keith Oseguera on 03-31-2024 Sodium [Moles/Vol] 136 mmol/L Normal 136-145 [facility] Comment on above: Performed By: #### P TT, CK, BNP, BMP, PT, CBC, HS TROP #### [address] Specific gravity Test strip (U) [Rel density]Ordered By: Keith Oseguera on 03-31-2024 Specific gravity (U) [Rel density] 1.024 1.001-1.03 0 [facility] Trichomonas Screenon 024 Trichomonas Screen -------- Trichomonas Screen No Trichomonas Seen Trich Reference Reference range = None Seen PERFORMED BY: [place] [address] PATHOLOGIST PERSONAL FINANCIAL COUNSELOR GUERLINE STANLEY M.D. Normal [facility] Comment on above: Performed By: #### U HCG, UA #### [address] Troponin I High Sensitivityo n 03-31-2024 Troponin I High Sensitivity 4.1 pg/mL Normal 0.0-15.0 [facility] Comment on above: Result Comment: PERF ORMED BY: [place] [address] PATHOLOGIST PERSONAL FINANCIAL COUNSELOR GUERLINE STANLEY M.D. Performed By: #### C EPHEID NEG, COVID19 FLU RSV #### [facility] [address] [place] [address] Troponin I.cardiac [Mass/vol ume] in Serum or Plasma by Detection limit <= 0.01 ng/Ordered By: Keith Oseguera on 03-31-2024 Troponin I.cardiac DL <= 0.01 ng/mL [Mass/Vol] 4.1 pg/mL 0.0-15.0 [facility] Urea nitrogen [Mass/volume] in Serum or PlasmaOrdered By: Keith Oseguera on 03-31-2024 Urea nitrogen [Mass/Vol] 18 mg/dL Normal 7-25 [facility] Comment on above: Performed By: #### P TT, CK, BNP, BMP, PT, CBC, HS TROP #### [facility] [address] [place] [address] Urinalysison 03-31-2024 Bilirubin,Urine Negative Normal Negative [facility] Comment on above: Order Comment: Name Collection Type:: Clean-Voided Midstream Performed By: #### U HCG, UA #### [place] [address] [place] Glucose Ql (U) Normal Normal Normal [facility] Comment on above: Order Comment: Name Collection Type:: Clean-Voided Midstream Performed By: #### U HCG, UA #### [place] [address] [place] Nitrite,Urine Negative Normal Negative [facility] Comment on above: Order Comment: Name Collection Type:: Clean-Voided Midstream Performed By: #### U HCG, UA #### [address] Occult Blood,Urine Negative Normal Negative [facility] Comment on above: Order Comment: Name Collection Type:: Clean-Voided Midstream Performed By: #### U HCG, UA #### [address] Protein,Urine Negative Normal Negative [facility] Comment on above: Order Comment: Name Collection Type:: Clean-Voided Midstream Performed By: #### U HCG, UA #### [address] Specificy [place],Urine 1.024 Normal 1.001-1.03 0 [facility] Comment on above: Order Comment: Name Collection Type:: Clean-Voided Midstream Performed By: #### U HCG, UA #### [address] Urobilinogen,Urine Normal Normal Normal [facility] Comment on above: Order Comment: Name Collection Type:: Clean-Voided Midstream Performed By: #### U HCG, UA #### [address] Urine appearanceOrdered By: Keith Oseguera on 03-31-2024 Appearance (U) Clear Normal Clear [facility] Comment on above: Order Comment: Name Collection Type:: Clean-Voided Midstream Performed By: #### U HCG, UA #### [address] Urobilinogen Test strip (U) [Mass/Vol]Ordered By: Keith Oseguera on 03-31-2024 Urobilinogen (U) [Mass/Vol] Normal mg/dL Normal [facility] XR chest 1V portableon 03-31 XR chest 1V portable [facility] [address] XRay Report Signed Patient: Ne Keita MR#: [id number] : 1985 Acct:[id number] Age/Sex: 38 / F ADM Date: 03/30/24 Loc: ER Room: Type: [facility] ER Attending Dr: Copies to: Keith Oseguera DO Ordering Provider: Keith Oseguera DO Date of Service: 03/31/24 XR/XR chest 1V portable: Chest Pain Plain film chest Single view HISTORY: Dizziness and shortness of breath COMPARISON: 08/04/2023 FINDINGS: SUPPORT DEVICES: None POSTSURGICAL CHANGES: Spinal fixation hardware redemonstrated HEART: Within normal limits PULMONARY DONNA: Within normal limits MEDIASTINUM: Unremarkable LUNGS AND PLEURA: No acute lung process, pleural effusion or pneumothorax identified. BONY STRUCTURES: Similar scoliosis ADDITIONAL FINDINGS None XR/XR chest 1V portable IMPRESSION: No acute process. Impression dictated by: Jaycob Cr M.D.03/31/2024 9:11 AM Dictation Location: [place] [address] Transcribed By: [facility] 03/31/24910 Dictated By: Jaycob Cr DO 03/31/24909 Signed By: 03/31/24910 Normal [facility] pH of Urine by Test stripOrd ered By: Keith Oseguera on 03-31-2024 pH (U) 5.5 [pH] Normal 5.0-9.0 [facility] Comment on above: Order Comment: Name Collection Type:: Clean-Voided Midstream Performed By: #### U HCG, UA #### [address] ECG 12 lead ECGon 03-30-2024 ECG 12 lead ECG [facility] [place] [address] [place] [address] Electrocardiograph Report Signed Patient: Ne Keita MR#: [id number] : 1985 Acct:[id number] Age/Sex: 38 / F ADM Date: 03/30/24 Loc: ER Room: Type: [facility] ER Attending Dr: Ordering Provider: Keith Oseguera DO Date of Service: 03/30/2401/18/2347 ECG/ECG 12 lead ECG: Chest Pain Copies to: Test Reason : Blood Pressure : 146/090 mmHG Vent. Rate : 068 BPM Atrial Rate : 068 BPM P-R Int : 164 ms QRS Dur : 104 ms QT Int : 398 ms P-R-T Axes : 068 057 043 degrees QTc Int : 423 ms Normal sinus rhythm Confirmed by Keith Oseguera DO ([id number]) on 03/31/2024 6:52:21 AM Referred By: Electronically Signed By:Keith Oseguera DO Transcribed By: MUS Signed By Keith Oseguera DO 0652 Normal [facility] Hepatitis Acute Panelon 04- HBsAg Screen Negative Normal Negative [facility] Comment on above: Order Comment: Name Collection Type:: Clean-Voided Midstream Performed By: #### U HCG, UA #### [address] Hepatitis A Antibody IgM Negative Normal Negative [facility] Comment on above: Order Comment: Name Collection Type:: Clean-Voided Midstream Performed By: #### U HCG, UA #### [address] Hepatitis B Core Antibody IgM Negative Normal Negative [facility] Comment on above: Order Comment: Name Collection Type:: Clean-Voided Midstream Performed By: #### U HCG, UA #### [address] Hepatitis C Virus Antibody Non-Reactive Normal Non Reactive [facility] Comment on above: Order Comment: Name Collection Type:: Clean-Voided Midstream Performed By: #### U HCG, UA #### [address] Interpretation Hepatitis C Normal . [facility] Comment on above: Order Comment: Name Collection Type:: Clean-Voided Midstream Result Comment: Not infected with HCV unless early or acute infection is suspected (which may be delayed in an immunocompromised individual), or other evidence exists to indicate HCV infection. Performed at: - [facility] [id number] Manager Technology: Rell Hernandez PhD, Phone: [phone] PERFORMED BY: [place] [address] PATHOLOGIST PERSONAL FINANCIAL COUNSELOR GUERLINE STANLEY M.D. Performed By: #### U HCG, UA #### [address] Hepatitis B virus surface Ag [Presence] in Serum or Plasma by ImmunoassayOrdered By: Larissa Resendiz on 02-19-2024 HBV surface Ag IA Ql Negative Negative [facility] Hepatitis C virus IgG Ab [Pr esence] in Serum or Plasma by ImmunoassayOrdered By: Larissa Resendiz on 02-19-2024 HCV IgG IA Ql Non-Reactive Non Reactive [facility] No Panel InformationOrdered By: Larissa Resendiz on 02-19-2024 Hepatitis A IgM Antibody Negative Negative [facility] Hepatitis B Core IgM Antibody Negative Negative [facility] Hepatitis C Interpretation See comment . [facility] Comment on above: Not infected with HC V unless early or acute infection issuspected (which may be delayed in an immunocompromisedindividual), or other evidence exists to indicate HCVinfection.Performed at: [facility] [id number] Director: Rell Hernandez PhD, Phone: [phone] Alanine aminotransferase [En zymatic activity/volume] in Serum or PlasmaOrdered By: Renato Kumar on 11-15-2023 ALT [Catalytic activity/Vol] 21 U/L Normal 7-52 [facility] Comment on above: Performed By: #### C MP, LIPASE, CBC #### [facility] [address] [place] [address] [place] Albumin [Mass/volume] in Ser um or Plasma by Bromocresol green (BCG) dye binding methoOrdered By: Renato Kumar on 11-15-2023 Albumin BCG dye [Mass/Vol] 4.0 g/dL 3.5-5.7 [facility] Alkaline phosphatase [Enzyma tic activity/volume] in Serum or PlasmaOrdered By: Renato Kumar on 11-15-2023 ALP [Catalytic activity/Vol] 102 U/L Normal 34-104 [facility] Comment on above: Performed By: #### C MP, LIPASE, CBC #### [facility] [address] [place] [address] [place] Aspartate aminotransferase [ Enzymatic activity/volume] in Serum or PlasmaOrdered By: Renato Kumar on 11-15-2023 AST [Catalytic activity/Vol] 16 U/L Normal 13-39 [facility] Comment on above: Performed By: #### C MP, LIPASE, CBC #### [address] Automated basophil %Ordered By: Renato Kumar on 11-15-2023 Basophils/100 WBC (Bld) 0.9 % Normal . [facility] Comment on above: Performed By: #### C MP, LIPASE, CBC #### [address] Automated basophil countOrde red By: Renato Kumar on 11-15-2023 Basophils (Bld) [#/Vol] 0.1 10*3/uL Normal 0.0-0.2 [facility] Comment on above: Result Comment: PERF ORMED BY: [place] [address] PATHOLOGIST PERSONAL FINANCIAL COUNSELOR GUERLINE STANLEY M.D. Performed By: #### C MP, LIPASE, CBC #### [address] Automated blood monocyte cou ntOrdered By: Renato Kumar on 11-15-2023 Monocytes (Bld) [#/Vol] 0.8 10*3/uL Normal 0.0-0.8 [facility] Comment on above: Performed By: #### C MP, LIPASE, CBC #### [address] Automated eosinophil %Ordere d By: Renato Kumar on 11-15-2023 Eosinophils/100 WBC (Bld) 0.9 % Normal . [facility] Comment on above: Performed By: #### C MP, LIPASE, CBC #### [address] Automated eosinophil countOr dered By: Renato Kumar on 11-15-2023 Eosinophils (Bld) [#/Vol] 0.1 10*3/uL Normal 0.0-0.45 [facility] Comment on above: Performed By: #### C MP, LIPASE, CBC #### [address] Automated monocyte %Ordered By: Renato Kumar on 11-15-2023 Monocytes/100 WBC (Bld) 6.3 % Normal . [facility] Comment on above: Performed By: #### C MP, LIPASE, CBC #### [facility] [address] [place] [address] Automated neutrophil %Ordere d By: Renato Kumar on 11-15-2023 Neutrophils/100 WBC (Bld) 72.4 % Normal . [facility] Comment on above: Performed By: #### C MP, LIPASE, CBC #### [address] Automated urine color determ inationOrdered By: Renato Kumar on 11-15-2023 Color (U) Yellow Normal Yellow [facility] Comment on above: Order Comment: Name Collection Type:: Clean-Voided Midstream Performed By: #### U HCG, UA #### [address] Bilirubin Test strip Ql (U)O rdered By: Renato Kumar on 11-15-2023 Bilirubin Ql (U) Negative Negative [facility] Bilirubin.total [Mass/volume ] in Serum or PlasmaOrdered By: Renato Kumar on 11-15-2023 Bilirubin [Mass/Vol] 0.2 mg/dL Low 0.3-1.0 [facility] Comment on above: Performed By: #### C MP, LIPASE, CBC #### [address] abdomen pelvis wo conon 0 11-15-2023 CT abdomen pelvis wo con [facility] [address] CT Scan Report Signed Patient: Ne Keita MR#: [id number] : 1985 Acct:[id number] Age/Sex: 38 / F ADM Date: 11/15/23 Loc: ER Room: Type: [facility] ER Attending Dr: Copies to: Renato Kumar MD Ordering Provider: Renato Kumar MD Date of Service: 11/15/23 CT/CT abdomen pelvis wo con: Abdominal Pain CT Abdomen and Pelvis withoutcontrast TECHNIQUE: Axial imaging with 2-D reconstruction. . The CT exam was performed using one or more the following dose reduction techniques: Automated exposure control, adjustment of the MA and/or Kv according to patient size, or use of the iterative reconstruction technique. COMPARISON: 12/05/2022 History: Bilateral flank pain. Urinary urgency and frequency. LIMITATIONS: None LOWER THORAX Unremarkable LIVER: Hepatomegaly GALLBLADDER: No gallbladder abnormality identified. BILE DUCTS: No dilatation SPLEEN: Unremarkable PANCREAS: Unremarkable ADRENAL GLANDS: Unremarkable KIDNEYS:Unremarkable AORTA: No abdominal aortic aneurysm identified. Mild atherosclerosis. RETROPERITONEUM: No significant retroperitoneal abnormalities identified. MESENTERY:Unremarkable SMALL BOWEL: The small bowel loops are nondistended. APPENDIX: The appendix is normal. COLON: Unremarkable URINARY BLADDER: Urinary bladder is unremarkable. REPRODUCTIVE SYSTEM: The uterus is absent. Right adnexa not seen. Left adnexa unremarkable. PNEUMOPERITONEUM: None PERITONEAL FLUID:None BONY STRUCTURES: Spinal fixation hardware. Similar scoliosis. ABDOMINAL WALL: Similar small fat-containing umbilical hernia. CT/CT abdomen pelvis wo con IMPRESSION: No acute findings. No nephrolithiasis or obstructive uropathy. Similar hepatomegaly. Impression dictated by: Jaycob Cr M.D.11/15/2023 6:21 PM Dictation Location: [place] [address] Transcribed By: [facility] 11/15/231820 Dictated By: Jaycob Cr DO 11/15/231815 Signed By: 11/15/23 182 Normal [facility] Calcium [Mass/volume] in Ser um or PlasmaOrdered By: Renato Kumar on 11-15-2023 Calcium [Mass/Vol] 8.9 mg/dL Normal 8.6-10.3 [facility] Comment on above: Performed By: #### C MP, LIPASE, CBC #### [facility] [address] [place] [address] [place] Carbon dioxide, total [Moles /volume] in Serum or PlasmaOrdered By: Renato Kumar on 11-15-2023 CO2 [Moles/Vol] 27.0 mmol/L Normal 21.0-31.0 [facility] Comment on above: Performed By: #### C MP, LIPASE, CBC #### [facility] [address] [place] [address] [place] Chloride [Moles/volume] in S gale or PlasmaOrdered By: Renato Kumar on 11-15-2023 Chloride [Moles/Vol] 108 mmol/L High 98-107 [facility] Comment on above: Performed By: #### C MP, LIPASE, CBC #### [facility] [address] Complete Blood Count Auto Di ffon 11-15-2023 Mean Corpuscular HGB Conc 33.2 g/dL Normal 32.0-35.0 [facility] Comment on above: Performed By: #### C MP, LIPASE, CBC #### [address] Monocytes/100 WBC (Bld) 17.23 % Normal 0.00-20.00 [facility] Comment on above: Performed By: #### C MP, LIPASE, CBC #### [address] NRBC% 0.1 /100{WBC} Normal 0-0.5 [facility] Comment on above: Performed By: #### C MP, LIPASE, CBC #### [address] Comprehensive Metabolic Pane oscar 11-15-2023 Albumin [Mass/Vol] 4.0 g/dL Normal 3.5-5.7 [facility] Comment on above: Performed By: #### C MP, LIPASE, CBC #### [place] [address] [place] Creatinine Clr Calc Pharmacy 154.63 Normal [facility] Comment on above: Performed By: #### C MP, LIPASE, CBC #### [place] [address] [place] GFR/1.73 sq M.predicted MDRD (S/P/Bld) [Vol rate/Area] mL/min/{1.73_m2} Normal [facility] Comment on above: Performed By: #### C MP, LIPASE, CBC #### [address] Creatinine [Mass/volume] in Serum or PlasmaOrdered By: Renato Kumar on 11-15-2023 Creatinine [Mass/Vol] 0.64 mg/dL Normal 0.60-1.20 [facility] Comment on above: Performed By: #### C MP, LIPASE, CBC #### [facility] [address] Erythrocyte distribution wid th [Ratio] by Automated countOrdered By: Renato Kumar on 11-15-2023 Erythrocyte distribution width (RBC) [Ratio] 14.9 % Normal 11.9-15.3 [facility] Comment on above: Performed By: #### C MP, LIPASE, CBC #### [facility] [address] Erythrocytes [#/volume] in B lood by Automated countOrdered By: Renato Kumar on 11-15-2023 RBC (Bld) [#/Vol] 4.99 10*6/uL Normal 3.60-5.00 [facility] Comment on above: Performed By: #### C MP, LIPASE, CBC #### [facility] [address] Glucose [Mass/volume] in Ser um or PlasmaOrdered By: Renato Kumar on 11-15-2023 Glucose [Mass/Vol] 87 mg/dL Normal 70-100 [facility] Comment on above: ADA recommended refe rence rangeRandom Glucose Reference Range is dependent on time and content of last meal. Glucose of more than 200 mg/dL in a nonstressed, ambulatory subject supports the diagnosis of Diabetes Mellitus. Result Comment: [place] om Glucose Reference Range is dependent on time and content of last meal. Glucose of more than 200 mg/dL in a nonstressed, ambulatory subject supports the diagnosis of Diabetes Mellitus. ADA recommended reference range Performed By: #### C MP, LIPASE, CBC #### [facility] [address] HCG ( test) IAmagdai d Ql (U)Ordered By: Renato Kumar on 11-15-2023 HCG ( test) Ql (U) Negative [facility] HCG,Urineon 11-15-2023 Beta HCG ( test) Ql (U) Negative Normal [facility] Comment on above: Order Comment: Name Collection Type:: Clean-Voided Midstream Result Comment: PERF ORMED BY: [place] [address] PATHOLOGIST PERSONAL FINANCIAL COUNSELOR GUERLINE STANLEY M.D. Performed By: #### U HCG, UA #### [address] Hematocrit [Volume Fraction] of Blood by Automated countOrdered By: Renato Kumar on 11-15-2023 Hematocrit (Bld) [Volume fraction] 42.2 % Normal 34.0-46.4 [facility] Comment on above: Performed By: #### C MP, LIPASE, CBC #### [address] Hemoglobin [Mass/volume] in BloodOrdered By: Renato Kumar on 11-15-2023 Hemoglobin (Bld) [Mass/Vol] 14.0 g/dL Normal 11.8-15.4 [facility] Comment on above: Performed By: #### C MP, LIPASE, CBC #### [address] Ketones Auto test strip (U) [Mass/Vol]Ordered By: Renato Kumar on 11-15-2023 Ketones (U) [Mass/Vol] Negative Negative [facility] Leukocytes [#/volume] correc taurus for nucleated erythrocytes in Blood by Automated counOrdered By: Renato Kumar on 11-15-2023 WBC corrected for nucl RBC Auto (Bld) [#/Vol] 12.5 10*3/uL 3.8-11.6 [facility] Leukocytes [#/volume] in Blo od by Automated countOrdered By: Renato Kumar on 11-15-2023 WBC (Bld) [#/Vol] 12.5 10*3/uL High 3.8-11.6 [facility] Comment on above: Performed By: #### C MP, LIPASE, CBC #### [address] Lipase [Enzymatic activity/v olume] in Serum or PlasmaOrdered By: Renato Kumar on 11-15-2023 Lipase [Catalytic activity/Vol] 14.0 U/L Normal 11.0-82.0 [facility] Comment on above: Result Comment: PERF ORMED BY: [place] [address] PATHOLOGIST PERSONAL FINANCIAL COUNSELOR GUERLINE STANLEY M.D. Performed By: #### C MP, LIPASE, CBC #### [address] Lymphocytes [#/volume] in Bl ood by Automated countOrdered By: Renato Kumar on 11-15-2023 Lymphocytes (Bld) [#/Vol] 2.4 10*3/uL Normal 1.00-4.8 [facility] Comment on above: Performed By: #### C MP, LIPASE, CBC #### [address] Lymphocytes/100 leukocytes i n Blood by Automated countOrdered By: Renato Kumar on 11-15-2023 Lymphocytes/100 WBC (Bld) 19.5 % Normal . [facility] Comment on above: Performed By: #### C MP, LIPASE, CBC #### [address] MCH [Entitic mass] by Automa taurus countOrdered By: Renato Kumar on 11-15-2023 MCH (RBC) [Entitic mass] 28.1 pg Normal 24.7-34.3 [facility] Comment on above: Performed By: #### C MP, LIPASE, CBC #### [address] MCHC Auto (RBC) [Mass/Vol]Or dered By: Renato Kumar on 11-15-2023 MCHC (RBC) [Mass/Vol] 33.2 g/dL 32.0-35.0 [facility] MCV [Entitic volume] by Auto mated countOrdered By: Renato Kumar on 11-15-2023 MCV (RBC) [Entitic vol] 84.7 fL Normal 80-100 [facility] Comment on above: Performed By: #### C MP, LIPASE, CBC #### [address] Monocyte distribution width [Entitic volume] in Blood by AutomatedOrdered By: Renato Kumar on 11-15-2023 Monocyte distribution width Auto (Bld) [Entitic vol] 17.23 % 0.00-20.00 [facility] Neutrophils [#/volume] in Bl ood by Automated countOrdered By: Renato Kumar on 11-15-2023 Neutrophils (Bld) [#/Vol] 9.1 10*3/uL High 1.8-7.7 [facility] Comment on above: Performed By: #### C MP, LIPASE, CBC #### [facility] [address] Nitrite Test strip Ql (U)Ord ered By: Renato Kumar on 11-15-2023 Nitrite Ql (U) Negative Negative [facility] No Panel InformationOrdered By: Renato Kumar on 11-15-2023 Estimated GFR (CKD-EPI) > 60.0 mL/Min [facility] Creatinine Clearance (Chem 154.63 [facility] Nucleated erythrocytes [Pres ence] in Blood by Automated countOrdered By: Renato Kumar on 11-15-2023 Nucleated RBC Auto Ql (Bld) 0.1 /100{WBC} 0-0.5 [facility] Platelet mean volume [Entiti c volume] in Blood by Automated countOrdered By: Renato Kumar on 11-15-2023 Platelet mean volume (Bld) [Entitic vol] 9.6 fL Normal 6.3-10.7 [facility] Comment on above: Performed By: #### C MP, LIPASE, CBC #### [facility] [address] [place] [address] [place] Platelets [#/volume] in Bloo d by Automated countOrdered By: Renato Kumar on 11-15-2023 Platelets (Bld) [#/Vol] 287 10*3/uL Normal 150-450 [facility] Comment on above: Performed By: #### C MP, LIPASE, CBC #### [facility] [address] [place] [address] [place] Potassium [Moles/volume] in Serum or PlasmaOrdered By: Renato Kumar on 11-15-2023 Potassium [Moles/Vol] 4.0 mmol/L Normal 3.5-5.1 [facility] Comment on above: Performed By: #### C MP, LIPASE, CBC #### [address] Protein Auto test strip (U) [Mass/Vol]Ordered By: Renato Kumar on 11-15-2023 Protein (U) [Mass/Vol] Negative Negative [facility] Protein [Mass/volume] in Ser um or PlasmaOrdered By: Renato Kumar on 11-15-2023 Protein [Mass/Vol] 6.6 g/dL Normal 6.4-8.9 [facility] Comment on above: Performed By: #### C MP, LIPASE, CBC #### [address] Serum globulin measurement b y calculation (mass/volume)Ordered By: Renato Kumar on 11-15-2023 Globulin (S) [Mass/Vol] 2.6 g/dL [facility] Comment on above: Performed By: #### C MP, LIPASE, CBC #### [address] Serum or plasma albumin/glob ulin mass ratioOrdered By: Renato Kumar on 11-15-2023 Albumin/Globulin [Mass ratio] 1.5 {ratio} [facility] Comment on above: Performed By: #### C MP, LIPASE, CBC #### [address] Serum or plasma anion gap de terminationOrdered By: Renato Kumar on 11-15-2023 Anion gap [Moles/Vol] 8.0 mmol/L Normal 6.0-15.0 [facility] Comment on above: Performed By: #### C MP, LIPASE, CBC #### [address] Sodium [Moles/volume] in Ser um or PlasmaOrdered By: Renato Kumar on 11-15-2023 Sodium [Moles/Vol] 139 mmol/L Normal 136-145 [facility] Comment on above: Performed By: #### C MP, LIPASE, CBC #### [facility] [address] Specific gravity Auto test s trip (U) [Rel density]Ordered By: Renato Kumar on 11-15-2023 Specific gravity (U) [Rel density] 1.026 1.001-1.03 0 [facility] Urea nitrogen [Mass/volume] in Serum or PlasmaOrdered By: Renato Kumar on 11-15-2023 Urea nitrogen [Mass/Vol] 17 mg/dL Normal 7-25 [facility] Comment on above: Performed By: #### C MP, LIPASE, CBC #### [facility] [address] Urinalysison 11-15-2023 Appearance (U) Clear Normal Clear [facility] Comment on above: Order Comment: Name Collection Type:: Clean-Voided Midstream Performed By: #### U HCG, UA #### [address] Bilirubin,Urine Negative Normal Negative [facility] Comment on above: Order Comment: Name Collection Type:: Clean-Voided Midstream Performed By: #### U HCG, UA #### [address] Glucose Ql (U) Normal Normal Normal [facility] Comment on above: Order Comment: Name Collection Type:: Clean-Voided Midstream Performed By: #### U HCG, UA #### [address] Ketones Ql (U) Negative Normal Negative [facility] Comment on above: Order Comment: Name Collection Type:: Clean-Voided Midstream Performed By: #### U HCG, UA #### [place] [address] [place] Leukocyte esterase Test strip Ql (U) Negative Normal Negative [facility] Comment on above: Order Comment: Name Collection Type:: Clean-Voided Midstream Performed By: #### U HCG, UA #### [place] [address] [place] Nitrite,Urine Negative Normal Negative [facility] Comment on above: Order Comment: Name Collection Type:: Clean-Voided Midstream Performed By: #### U HCG, UA #### [facility] [address] [place] [address] [place] Occult Blood,Urine Negative Normal Negative [facility] Comment on above: Order Comment: Name Collection Type:: Clean-Voided Midstream Performed By: #### U HCG, UA #### [facility] [address] [place] [address] [place] Protein,Urine Negative Normal Negative [facility] Comment on above: Order Comment: Name Collection Type:: Clean-Voided Midstream Performed By: #### U HCG, UA #### [facility] [address] Specificy [place],Urine 1.026 Normal 1.001-1.03 0 [facility] Comment on above: Order Comment: Name Collection Type:: Clean-Voided Midstream Performed By: #### U HCG, UA #### [facility] [address] [place] [address] Urobilinogen,Urine Normal Normal Normal [facility] Comment on above: Order Comment: Name Collection Type:: Clean-Voided Midstream Performed By: #### U HCG, UA #### [facility] [address] [place] [address] Urine clarity by refractomet ry automatedOrdered By: Renato Kumar on 11-15-2023 Clarity Refractometry automated (U) Clear Clear [facility] Urine glucose measurement by automated test strip (mass/volume)Ordered By: Renato Kumar on 11-15-2023 Glucose Auto test strip (U) [Mass/Vol] Normal mg/dL Normal [facility] Urine hemoglobin detection b y automated test stripOrdered By: Renato Kumar on 11-15-2023 Hemoglobin Auto test strip Ql (U) Negative Negative [facility] Urine leukocyte esterase det ection by automated test stripOrdered By: Renato Kumar on 11-15-2023 Leukocyte esterase Auto test strip Ql (U) Negative Negative [facility] Urine pH measurement by auto mated test stripOrdered By: Renato Kumar on 11-15-2023 pH (U) 6.5 [pH] Normal 5.0-9.0 [facility] Comment on above: Order Comment: Name Collection Type:: Clean-Voided Midstream Performed By: #### U HCG, UA #### [address] Urobilinogen Auto test strip (U) [Mass/Vol]Ordered By: Renato Kumar on 11-15-2023 Urobilinogen (U) [Mass/Vol] Normal mg/dL Normal [facility] XR chest 2V*on 08-05-2023 XR chest 2V* [facility] [place] [address] [place] [address] XRay Report Signed Patient: Ne Keita MR#: [id number] : 1985 Acct:[id number] Age/Sex: 38 / F ADM Date: 08/04/23 Loc: ER Room: Type: [facility] ER Attending Dr: Copies to: SILVIA Moon Ordering Provider: SILVIA Moon Date of Service: 08/04/23 XR/XR chest 2V*: Upper Respiratory Infection XR chest 2V* 08/04/2023 8:38 PM SIGNS AND SYMPTOMS: Fever, chills, sore throat PROTOCOL: Frontal and lateral radiographs of the chest COMPARISON: 05/12/2023 FINDINGS: The trachea is midline. The heart and mediastinal structures are within normal limits. The lung parenchyma is clear. The bony thorax is intact. 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 XR/XR chest 2V* IMPRESSION: No acute cardiopulmonary pathology. Impression dictated by: Pedrito Alfredo M.D.08/05/2023 8:36 AM Dictation Location: [place] [address] Transcribed By: [facility] 08/05/23835 Dictated By: Pedrito Alfredo II, MD 08/05/23832 Signed By: 08/05/23835 Normal [facility] COVID CepheidOrdered By: Mildred Vang on 08-04-2023 SARS-CoV-2 (COVID-19) Ab IA Ql Negative Negative [facility] Comment on above: This is a duplicate Cepheid Xpert Xpress CoV-2/Flu/RSV Plus RNA by RT-PCR result to be used for statistical tracking purpose only. SARS-CoV-2 (COVID-19) RNA JUDIT+probe Ql (Unsp spec) [facility] COVID-19 / Flu A/B / RSV PCR on 08-04-2023 SARS-CoV-2 (COVID-19) RNA JUDIT+probe Ql (Unsp spec) COVID-19 Cepheid Result Negative for SARS-CoV-2 RNA by RT-PCR Flu A Cepheid Result Negative for Flu A RNA by RT-PCR Flu B Cepheid Result Negative for Flu B RNA by RT-PCR RSV Cepheid Result Negative for RSV RNA by RT-PCR COVID19 Blank Space Reference: Negative COVID19 Blank Space Cepheid Disclaimer The Cepheid Xpert Xpress CoV-2/Flu/RSV Plus has Cepheid Disclaimer not been FDA cleared or approved; this test has Cepheid Disclaimer been authorized by FDA under an EUA for use by Cepheid Disclaimer authorized laboratories; this test has been Cepheid Disclaimer authorized only for the simultaneous qualitative Cepheid Disclaimer detection and differentiation of nucleic acids from Cepheid Disclaimer SARS-CoV-2, influenza A, influenza B, and Cepheid Disclaimer respiratory syncytial virus (RSV), and not for any Cepheid Disclaimer other viruses or pathogens; and this test is only Cepheid Disclaimer authorized for the duration of the declaration that Cepheid Disclaimer circumstances exist justifying the authorization of Cepheid Disclaimer emergency use of in vitro diagnostic tests for Cepheid Disclaimer detection and/or diagnosis of COVID-19 under Cepheid Disclaimer Section 564(b)(1) of the Act, 21 U.S.C. 360bbb- Cepheid Disclaimer 3(b)(1), unless the authorization is terminated or Cepheid Disclaimer revoked sooner. PERFORMED BY: [place] [address] PATHOLOGIST PERSONAL FINANCIAL COUNSELOR GUERLINE STANLEY M.D. Normal [facility] Comment on above: Performed By: #### C EPHEID NEG, COVID19 FLU RSV #### [address] Cepheid COVID PCR Negativeon 08-04-2023 SARS-CoV-2 (COVID-19) RNA JUDIT+probe Ql (Unsp spec) Negative Normal Negative [facility] Comment on above: Result Comment: This is a duplicate Cepheid Xpert Xpress CoV-2/Flu/RSV Plus RNA by RT-PCR result to be used for statistical tracking purpose only. PERFORMED BY: [place] [address] PATHOLOGIST PERSONAL FINANCIAL COUNSELOR GUERLINE STANLEY M.D. Performed By: #### U HCG, UA #### [address] Automated basophil %Ordered By: Mark Bar on 05-12-2023 Basophils/100 WBC (Bld) 1.3 % Normal . [facility] Comment on above: Performed By: #### C EPHEID NEG, COVID19 FLU RSV #### [address] Automated basophil countOrde red By: Mark Bar on 05-12-2023 Basophils (Bld) [#/Vol] 0.1 10*3/uL Normal 0.0-0.2 [facility] Comment on above: Performed By: #### C EPHEID NEG, COVID19 FLU RSV #### [address] Automated blood monocyte cou ntOrdered By: Mark Bar on 05-12-2023 Monocytes (Bld) [#/Vol] 0.6 10*3/uL Normal 0.0-0.8 [facility] Comment on above: Performed By: #### C EPHEID NEG, COVID19 FLU RSV #### [address] Automated eosinophil %Ordere d By: Mark Bar on 05-12-2023 Eosinophils/100 WBC (Bld) 1.0 % Normal . [facility] Comment on above: Performed By: #### C EPHEID NEG, COVID19 FLU RSV #### [address] Automated eosinophil countOr dered By: Mark aBr on 05-12-2023 Eosinophils (Bld) [#/Vol] 0.1 10*3/uL Normal 0.0-0.45 [facility] Comment on above: Performed By: #### C EPHEID NEG, COVID19 FLU RSV #### [address] Automated monocyte %Ordered By: Mark Bar on 05-12-2023 Monocytes/100 WBC (Bld) 5.7 % Normal . [facility] Comment on above: Performed By: #### C EPHEID NEG, COVID19 FLU RSV #### [address] Automated neutrophil %Ordere d By: Mark Bar on 05-12-2023 Neutrophils/100 WBC (Bld) 69.6 % Normal . [facility] Comment on above: Performed By: #### C EPHEID NEG, COVID19 FLU RSV #### [address] Basic Metabolic Panelon 04-27 Creatinine [facility] Pharmacy 177.95 Normal [facility] Comment on above: Result Comment: PERF ORMED BY: [place] [address] PATHOLOGIST PERSONAL FINANCIAL COUNSELOR GUERLINE STANLEY M.D. Performed By: #### C EPHEID NEG, COVID19 FLU RSV #### [address] GFR/1.73 sq M.predicted MDRD (S/P/Bld) [Vol rate/Area] mL/min/{1.73_m2} Normal [facility] Comment on above: Performed By: #### C EPHEID NEG, COVID19 FLU RSV #### [address] COVID-19 Antigenon 3 COVID-19 Antigen Healthcare Worker?: Y Reference Range: Negative Negative results, from patients with symptom onset beyond five days, should be treated as presumptive and confirmation with a molecular assay, if necessary, for patient management, may be performed. Negative results do not rule out COVID-19 and should not be used as the sole basis for treatment or patient management decisions, including infection control decisions. Negative results should be considered in the context of a patient's recent exposures, history and the presence of clinical signs and symptoms consistent with COVID-19. The Laura SARS Antigen JESSICA does not differentiate between SARS-CoV and SARS-CoV-2. This test was developed and its performance characteristic determined by [facility] and validated at [facility]. This test has not been FDA cleared or approved. This test has been authorized by FDA under an Emergency Use Authorization (EUA). This test has been validated in accordance with the FDA's Guidance Document (Policy for Diagnostics Testing in Laboratories Certified to Perform High Complexity Testing under CLIA prior to Emergency Use Authorization for Coronavirus Disease-2019 during the Public Health Emergency) issued on January 28, 2020. This test is only authorized for the duration of time the declaration that circumstances exist justifying the authorization of the emergency use of in vitro diagnostic tests for detection of SARS-CoV-2 virus and/or diagnosis of COVID-19 infection under section 564(b)(1) of the Act, 21 U.S.C. 360bbb-3(b)(1), unless the authorization is terminated or revoked sooner. SARS-CoV+SARS-CoV-2 (COVID-19) Ag [Presence] in Respiratory specimen by Rapid immunoassay Negative for SARS Antigen by JESSICA PERFORMED BY: [place] [address] PATHOLOGIST PERSONAL FINANCIAL COUNSELOR GUERLINE STANLEY M.D. Normal [facility] Comment on above: Performed By: #### C EPHEID NEG, COVID19 FLU RSV #### [facility] [address] [place] [address] COVID-19 SOFIAOrdered By: Ismael Bar on 05-12-2023 SARS-CoV+SARS-CoV-2 (COVID-19) Ag IA.rapid Ql (Resp) Negative Negative [facility] Comment on above: This is a duplicate Laura SARS Antigen (JESSICA) result to be used for statistical tracking purpose only. Calcium [Mass/volume] in Ser um or PlasmaOrdered By: Mark Bar on 05-12-2023 Calcium [Mass/Vol] 8.9 mg/dL Normal 8.6-10.3 [facility] Comment on above: Performed By: #### C EPHEID NEG, COVID19 FLU RSV #### [address] Carbon dioxide, total [Moles /volume] in Serum or PlasmaOrdered By: Mark Bar on 05-12-2023 CO2 [Moles/Vol] 24.0 mmol/L Normal 21.0-31.0 [facility] Comment on above: Performed By: #### C EPHEID NEG, COVID19 FLU RSV #### [address] Chloride [Moles/volume] in S gale or PlasmaOrdered By: Mark Bar on 05-12-2023 Chloride [Moles/Vol] 107 mmol/L Normal 98-107 [facility] Comment on above: Performed By: #### C EPHEID NEG, COVID19 FLU RSV #### [address] Creatinine [Mass/volume] in Serum or PlasmaOrdered By: Mark Bar on 05-12-2023 Creatinine [Mass/Vol] 0.55 mg/dL Low 0.60-1.20 [facility] Comment on above: Performed By: #### C EPHEID NEG, COVID19 FLU RSV #### [place] [address] [place] Erythrocyte distribution wid th [Ratio] by Automated countOrdered By: Mark Bar on 05-12-2023 Erythrocyte distribution width (RBC) [Ratio] 15.5 % High 11.9-15.3 [facility] Comment on above: Performed By: #### C EPHEID NEG, COVID19 FLU RSV #### [facility] [address] [place] [address] [place] Erythrocytes [#/volume] in B lood by Automated countOrdered By: Mark Bar on 05-12-2023 RBC (Bld) [#/Vol] 5.44 10*6/uL High 3.60-5.00 [facility] Comment on above: Performed By: #### C EPHEID NEG, COVID19 FLU RSV #### [facility] [address] [place] [address] [place] Glucose [Mass/volume] in Ser um or PlasmaOrdered By: Mark Bar on 05-12-2023 Glucose [Mass/Vol] 92 mg/dL Normal 70-100 [facility] Comment on above: ADA recommended refe rence rangeRandom Glucose Reference Range is dependent on time and content of last meal. Glucose of more than 200 mg/dL in a nonstressed, ambulatory subject supports the diagnosis of Diabetes Mellitus. Result Comment: [place] om Glucose Reference Range is dependent on time and content of last meal. Glucose of more than 200 mg/dL in a nonstressed, ambulatory subject supports the diagnosis of Diabetes Mellitus. ADA recommended reference range Performed By: #### C EPHEID NEG, COVID19 FLU RSV #### [facility] [address] [place] [address] [place] Hematocrit [Volume Fraction] of Blood by Automated countOrdered By: Mark Bar on 05-12-2023 Hematocrit (Bld) [Volume fraction] 45.7 % Normal 34.0-46.4 [facility] Comment on above: Performed By: #### C EPHEID NEG, COVID19 FLU RSV #### [facility] [address] [place] [address] [place] Hemoglobin [Mass/volume] in BloodOrdered By: Mark Bar on 05-12-2023 Hemoglobin (Bld) [Mass/Vol] 15.2 g/dL Normal 11.8-15.4 [facility] Comment on above: Performed By: #### C EPHEID NEG, COVID19 FLU RSV #### [address] Leukocytes [#/volume] correc taurus for nucleated erythrocytes in Blood by Automated counOrdered By: Mark Bar on 05-12-2023 WBC corrected for nucl RBC Auto (Bld) [#/Vol] 9.9 10*3/uL 3.8-11.6 [facility] Leukocytes [#/volume] in Blo od by Automated countOrdered By: Mark Bar on 05-12-2023 WBC (Bld) [#/Vol] 9.9 10*3/uL Normal 3.8-11.6 [facility] Comment on above: Performed By: #### C EPHEID NEG, COVID19 FLU RSV #### [place] [address] [place] Lymphocytes [#/volume] in Bl ood by Automated countOrdered By: Mark Bar on 05-12-2023 Lymphocytes (Bld) [#/Vol] 2.2 10*3/uL Normal 1.00-4.8 [facility] Comment on above: Performed By: #### C EPHEID NEG, COVID19 FLU RSV #### [place] [address] [place] Lymphocytes/100 leukocytes i n Blood by Automated countOrdered By: Mark Bar on 05-12-2023 Lymphocytes/100 WBC (Bld) 22.4 % Normal . [facility] Comment on above: Performed By: #### C EPHEID NEG, COVID19 FLU RSV #### [place] [address] [place] MCH [Entitic mass] by Automa taurus countOrdered By: Mark Bar on 05-12-2023 MCH (RBC) [Entitic mass] 27.9 pg Normal 24.7-34.3 [facility] Comment on above: Performed By: #### C EPHEID NEG, COVID19 FLU RSV #### [address] [place] [address] [place] MCHC Auto (RBC) [Mass/Vol]Or dered By: Mark Bar on 05-12-2023 MCHC (RBC) [Mass/Vol] 33.2 g/dL 32.0-35.0 [facility] MCV [Entitic volume] by Auto mated countOrdered By: Mark Bar on 05-12-2023 MCV (RBC) [Entitic vol] 84.1 fL Normal 80-100 [facility] Comment on above: Performed By: #### C EPHEID NEG, COVID19 FLU RSV #### [facility] [address] [place] [address] Monocyte distribution width [Entitic volume] in Blood by AutomatedOrdered By: Mark Bar on 05-12-2023 Monocyte distribution width Auto (Bld) [Entitic vol] 19.20 % 0.00-20.00 [facility] Neutrophils [#/volume] in Bl ood by Automated countOrdered By: Mark Bar on 05-12-2023 Neutrophils (Bld) [#/Vol] 6.9 10*3/uL Normal 1.8-7.7 [facility] Comment on above: Performed By: #### C EPHEID NEG, COVID19 FLU RSV #### [facility] [address] [place] [address] No Panel InformationOrdered By: Mark Bar on 05-12-2023 Estimated GFR (CKD-EPI) > 60.0 mL/Min [facility] Creatinine Clearance (Chem 177.95 [facility] SARS Antigen (LFIA) [facility] Nucleated erythrocytes [Pres ence] in Blood by Automated countOrdered By: Mark Bar on 05-12-2023 Nucleated RBC Auto Ql (Bld) 0.1 /100{WBC} 0-0.5 [facility] Platelet adequacy [Presence] in Blood by Light microscopyOrdered By: Mark Bar on 05-12-2023 Platelets LM Ql (Bld) Normal Normal [facility] Platelet mean volume [Entiti c volume] in Blood by Automated countOrdered By: Mark Bar on 05-12-2023 Platelet mean volume (Bld) [Entitic vol] 9.9 fL Normal 6.3-10.7 [facility] Comment on above: Performed By: #### C EPHEID NEG, COVID19 FLU RSV #### [address] Platelet morphology finding [Identifier] in BloodOrdered By: Mark Bar on 05-12-2023 Platelet morphology finding Nom (Bld) N/A [facility] Platelets Large [Presence] i n Blood by Light microscopyOrdered By: Mark Bar on 05-12-2023 Platelets Large LM Ql (Bld) Slight [facility] Platelets [#/volume] in Bloo d by Automated countOrdered By: Mark Bar on 05-12-2023 Platelets (Bld) [#/Vol] 245 10*3/uL Normal 150-450 [facility] Comment on above: Performed By: #### C EPHEID NEG, COVID19 FLU RSV #### [address] Potassium [Moles/volume] in Serum or PlasmaOrdered By: Mark Bar on 05-12-2023 Potassium [Moles/Vol] 4.1 mmol/L Normal 3.5-5.1 [facility] Comment on above: Performed By: #### C EPHEID NEG, COVID19 FLU RSV #### [address] RBC morphologyOrdered By: Ismael Bar on 05-12-2023 RBC morphology finding Nom (Bld) Normal Normal Normal [facility] Comment on above: Performed By: #### C EPHEID NEG, COVID19 FLU RSV #### [facility] [address] [place] [address] Scan and CBCon 05-12-2023 Large Platelets Slight Normal [facility] Comment on above: Result Comment: PERF ORMED BY: [place] [address] PATHOLOGIST PERSONAL FINANCIAL COUNSELOR GUERLINE STANLEY M.D. Performed By: #### C EPHEID NEG, COVID19 FLU RSV #### [address] Mean Corpuscular HGB Conc 33.2 g/dL Normal 32.0-35.0 [facility] Comment on above: Performed By: #### C EPHEID NEG, COVID19 FLU RSV #### [address] Monocytes/100 WBC (Bld) 19.20 % Normal 0.00-20.00 [facility] Comment on above: Performed By: #### C EPHEID NEG, COVID19 FLU RSV #### [address] NRBC% 0.1 /100{WBC} Normal 0-0.5 [facility] Comment on above: Performed By: #### C EPHEID NEG, COVID19 FLU RSV #### [address] Platelet Estimate Normal Normal Normal [facility] Comment on above: Performed By: #### C EPHEID NEG, COVID19 FLU RSV #### [address] Serum or plasma anion gap de terminationOrdered By: Mark Bar on 05-12-2023 Anion gap [Moles/Vol] 11.1 mmol/L Normal 6.0-15.0 [facility] Comment on above: Performed By: #### C EPHEID NEG, COVID19 FLU RSV #### [address] Sodium [Moles/volume] in Ser um or PlasmaOrdered By: Mark Bar on 05-12-2023 Sodium [Moles/Vol] 138 mmol/L Normal 136-145 [facility] Comment on above: Performed By: #### C EPHEID NEG, COVID19 FLU RSV #### [address] Laura Ag Negativeon 05-12-20 23 Laura Ag Negative Negative Normal Negative [facility] Comment on above: Result Comment: This is a duplicate Laura SARS Antigen (JESSICA) result to be used for statistical tracking purpose only. PERFORMED BY: [place] [address] PATHOLOGIST PERSONAL FINANCIAL COUNSELOR GUERLINE STANLEY M.D. Performed By: #### C EPHEID NEG, COVID19 FLU RSV #### [place] [id number] [facility] Troponin I High Sensitivityo n 05-12-2023 Troponin I High Sensitivity 2.8 pg/mL Normal 0.0-15.0 [facility] Comment on above: Result Comment: PERF ORMED BY: [place] [address] PATHOLOGIST PERSONAL FINANCIAL COUNSELOR GUERLINE STANLEY M.D. Performed By: #### C EPHEID NEG, COVID19 FLU RSV #### [address] [address] [facility] Troponin I.cardiac [Mass/vol ume] in Serum or Plasma by Detection limit <= 0.01 ng/Ordered By: Mark Bar on 05-12-2023 Troponin I.cardiac DL <= 0.01 ng/mL [Mass/Vol] 2.8 pg/mL 0.0-15.0 [facility] Urea nitrogen [Mass/volume] in Serum or PlasmaOrdered By: Mark Bar on 05-12-2023 Urea nitrogen [Mass/Vol] 14 mg/dL Normal 7-25 [facility] Comment on above: Performed By: #### C EPHEID NEG, COVID19 FLU RSV #### [place] [id number] [place] XR chest 2V*on 05-12-2023 XR chest 2V* [facility] [place] [address] [place] [address] XRay Report Signed Patient: Ne Keita MR#: [id number] : 1985 Acct:[id number] Age/Sex: 37 / F ADM Date: 05/12/23 Loc: ER Room: Type: [facility] ER Attending Dr: Copies to: Mark Bar PA-C Ordering Provider: Mark Bar PA-C Date of Service: 05/12/23 XR/XR chest 2V*: Shortness of Breath/Dyspnea PA AND LATERAL CHEST: CLINICAL HISTORY: Chest and back pain. COMPARISON: February 2023 There is no focal parenchymal consolidation, effusion or pneumothorax. The cardiac, hilar and mediastinal silhouettes are within normal limits. There is no vascular congestion. The visualized bony thorax is intact. There is slight dextroscoliotic curvature. Zuniga rods are seen. XR/XR chest 2V* IMPRESSION: NO ACUTE CARDIOPULMONARY ABNORMALITY. Impression dictated by: Yanni Hernandez M.D.05/12/2023 6:55 PM Dictation Location: [place] [id number] Transcribed By: LIVIER 05/12/231854 Dictated By: Yanni Hernandez MD 05/12/231853 Signed By: 05/12/231854 Normal [facility] Alanine aminotransferase [En zymatic activity/volume] in Serum or PlasmaOrdered By: Jah Almonte on 03-05-2023 ALT [Catalytic activity/Vol] 17 U/L 7-52 [facility] Albumin [Mass/volume] in Ser um or Plasma by Bromocresol green (BCG) dye binding methoOrdered By: Jah Almonte on 03-05-2023 Albumin BCG dye [Mass/Vol] 4.2 g/dL 3.5-5.7 [facility] Alkaline phosphatase [Enzyma tic activity/volume] in Serum or PlasmaOrdered By: Jah Almonte on 03-05-2023 ALP [Catalytic activity/Vol] 87 U/L 34-104 [facility] Aspartate aminotransferase [ Enzymatic activity/volume] in Serum or PlasmaOrdered By: Jah Amlonte on 03-05-2023 AST [Catalytic activity/Vol] 14 U/L 13-39 [facility] Basophils Auto (Bld) [#/Vol] Ordered By: Jah Almonte on 03-05-2023 Basophils (Bld) [#/Vol] 0.1 10*3/uL 0.0-0.2 [facility] Basophils/100 WBC Auto (Bld) Ordered By: Jah Almonte on 03-05-2023 Basophils/100 WBC (Bld) 0.9 % . [facility] Bilirubin.total [Mass/volume ] in Serum or PlasmaOrdered By: Jah Almonte on 03-05-2023 Bilirubin [Mass/Vol] 0.3 mg/dL 0.3-1.0 [facility] Calcium [Mass/volume] in Ser um or PlasmaOrdered By: Jah Almonte on 03-05-2023 Calcium [Mass/Vol] 8.7 mg/dL 8.6-10.3 [facility] Carbon dioxide, total [Moles /volume] in Serum or PlasmaOrdered By: Jah Almonte on 03-05-2023 CO2 [Moles/Vol] 25.5 mmol/L 21.0-31.0 [facility] Chloride [Moles/volume] in S gale or PlasmaOrdered By: Jah Almonte on 03-05-2023 Chloride [Moles/Vol] 107 mmol/L 98-107 [facility] Creatinine [Mass/volume] in Serum or PlasmaOrdered By: Jah Almonte on 03-05-2023 Creatinine [Mass/Vol] 0.60 mg/dL 0.60-1.20 [facility] Eosinophils Auto (Bld) [#/Vo l]Ordered By: Jah Almonte on 03-05-2023 Eosinophils (Bld) [#/Vol] 0.1 10*3/uL 0.0-0.45 [facility] Eosinophils/100 WBC Auto (Bl d)Ordered By: Jah Almonte on 03-05-2023 Eosinophils/100 WBC (Bld) 0.9 % . [facility] Erythrocyte distribution wid th Auto (RBC) [Ratio]Ordered By: Jah Almonte on 03-05-2023 Erythrocyte distribution width (RBC) [Ratio] 17.6 % 11.9-15.3 [facility] Globulin Calc (S) [Mass/Vol] Ordered By: Jah Almonte on 03-05-2023 Globulin (S) [Mass/Vol] 2.6 g/dL [facility] Glucose [Mass/volume] in Ser um or PlasmaOrdered By: Jah Almonte on 03-05-2023 Glucose [Mass/Vol] 109 mg/dL 70-100 [facility] Comment on above: ADA recommended refe rence rangeRandom Glucose Reference Range is dependent on time and content of last meal. Glucose of more than 200 mg/dL in a nonstressed, ambulatory subject supports the diagnosis of Diabetes Mellitus. Hematocrit Auto (Bld) [Volum e fraction]Ordered By: Jah Almonte on 03-05-2023 Hematocrit (Bld) [Volume fraction] 41.9 % 34.0-46.4 [facility] Hemoglobin [Mass/volume] in BloodOrdered By: Jah Almonte on 03-05-2023 Hemoglobin (Bld) [Mass/Vol] 13.7 g/dL 11.8-15.4 [facility] Leukocytes [#/volume] correc taurus for nucleated erythrocytes in Blood by Automated counOrdered By: Jah Almonte on 03-05-2023 WBC corrected for nucl RBC Auto (Bld) [#/Vol] 13.7 10*3/uL 3.8-11.6 [facility] Lymphocytes Auto (Bld) [#/Vo l]Ordered By: Jah Almonte on 03-05-2023 Lymphocytes (Bld) [#/Vol] 2.6 10*3/uL 1.00-4.8 [facility] Lymphocytes/100 WBC Auto (Bl d)Ordered By: Jah Almonte on 03-05-2023 Lymphocytes/100 WBC (Bld) 18.9 % . [facility] MCH Auto (RBC) [Entitic mass ]Ordered By: Jah Almonte on 03-05-2023 MCH (RBC) [Entitic mass] 26.7 pg 24.7-34.3 [facility] MCHC Auto (RBC) [Mass/Vol]Or dered By: Jah Almonte on 03-05-2023 MCHC (RBC) [Mass/Vol] 32.7 g/dL 32.0-35.0 [facility] MCV Auto (RBC) [Entitic vol] Ordered By: Jah Almonte on 03-05-2023 MCV (RBC) [Entitic vol] 81.6 fL 80-100 [facility] Magnesium [Mass/volume] in S gale or PlasmaOrdered By: Jah Almonte on 03-05-2023 Magnesium [Mass/Vol] 1.9 mg/dL 1.9-2.7 [facility] Monocyte distribution width [Entitic volume] in Blood by AutomatedOrdered By: Jah Almonte on 03-05-2023 Monocyte distribution width Auto (Bld) [Entitic vol] 16.68 % 0.00-20.00 [facility] Monocytes Auto (Bld) [#/Vol] Ordered By: Jah Almonte on 03-05-2023 Monocytes (Bld) [#/Vol] 0.7 10*3/uL 0.0-0.8 [facility] Monocytes/100 WBC Auto (Bld) Ordered By: Jah Almonte on 03-05-2023 Monocytes/100 WBC (Bld) 5.1 % . [facility] Neutrophils Auto (Bld) [#/Vo l]Ordered By: Jah Almonte on 03-05-2023 Neutrophils (Bld) [#/Vol] 10.2 10*3/uL 1.8-7.7 [facility] Neutrophils/100 WBC Auto (Bl d)Ordered By: Jah Almonte on 03-05-2023 Neutrophils/100 WBC (Bld) 74.2 % . [facility] No Panel InformationOrdered By: Jah Almonte on 03-05-2023 Estimated GFR (CKD-EPI) > 60.0 mL/Min [facility] Creatinine Clearance (Chem 162.80 [facility] Nucleated erythrocytes [Pres ence] in Blood by Automated countOrdered By: Jah Almonte on 03-05-2023 Nucleated RBC Auto Ql (Bld) 0.0 /100{WBC} 0-0.5 [facility] Platelet adequacy [Presence] in Blood by Light microscopyOrdered By: Jah Almonte on 03-05-2023 Platelets LM Ql (Bld) Normal Normal [facility] Platelet mean volume Auto (B ld) [Entitic vol]Ordered By: Jah Almonte on 03-05-2023 Platelet mean volume (Bld) [Entitic vol] 9.5 fL 6.3-10.7 [facility] Platelet morphology finding [Identifier] in BloodOrdered By: Jah Almonte on 03-05-2023 Platelet morphology finding Nom (Bld) Normal Normal [facility] Platelets Auto (Bld) [#/Vol] Ordered By: Jah Almonte on 03-05-2023 Platelets (Bld) [#/Vol] 256 10*3/uL 150-450 [facility] Potassium [Moles/volume] in Serum or PlasmaOrdered By: Jah Almonte on 03-05-2023 Potassium [Moles/Vol] 3.4 mmol/L 3.5-5.1 [facility] Protein [Mass/volume] in Ser um or PlasmaOrdered By: Jah Almonte on 03-05-2023 Protein [Mass/Vol] 6.8 g/dL 6.4-8.9 [facility] RBC Auto (Bld) [#/Vol]Ordere d By: Jah Almonte on 03-05-2023 RBC (Bld) [#/Vol] 5.13 10*6/uL 3.60-5.00 [facility] RBC morphologyOrdered By: Cali Almonte on 03-05-2023 RBC morphology finding Nom (Bld) Normal Normal [facility] Serum or plasma albumin/glob ulin mass ratioOrdered By: Jah Almonte on 03-05-2023 Albumin/Globulin [Mass ratio] 1.6 {ratio} [facility] Serum or plasma anion gap de terminationOrdered By: Jah Almonte on 03-05-2023 Anion gap [Moles/Vol] 9.9 mmol/L 6.0-15.0 [facility] Sodium [Moles/volume] in Ser um or PlasmaOrdered By: Jah Almonte on 03-05-2023 Sodium [Moles/Vol] 139 mmol/L 136-145 [facility] Urea nitrogen [Mass/volume] in Serum or PlasmaOrdered By: Jah Almonte on 03-05-2023 Urea nitrogen [Mass/Vol] 15 mg/dL 7-25 [facility] WBC Auto (Bld) [#/Vol]Ordere d By: Jah Almonte on 03-05-2023 WBC (Bld) [#/Vol] 13.7 10*3/uL 3.8-11.6 [facility] Activated partial thrombopla stin time (aPTT) in platelet poor plasma by coagulation aOrdered By: Farhat Castro on 02-05-2023 aPTT Coag (PPP) [Time] 29.9 s 25.1-36.5 [facility] Anisocytosis LM Ql (Bld)Orde red By: Farhat Castro on 02-05-2023 Anisocytosis Ql (Bld) Marked [facility] Basophils Auto (Bld) [#/Vol] Ordered By: Farhat Castro on 02-05-2023 Basophils (Bld) [#/Vol] 0.1 10*3/uL 0.0-0.2 [facility] Basophils/100 WBC Auto (Bld) Ordered By: Farhat Castro on 02-05-2023 Basophils/100 WBC (Bld) 0.9 % . [facility] COVID CepheidOrdered By: Grace Castro on 02-05-2023 SARS-CoV-2 (COVID-19) Ab IA Ql Negative Negative [facility] Comment on above: This is a duplicate [employer] Xpert Xpress CoV-2/Flu/RSV Plus RNA by RT-PCR result to be used for statistical tracking purpose only. SARS-CoV-2 (COVID-19) RNA JUIDT+probe Ql (Unsp spec) [facility] Calcium [Mass/volume] in Ser um or PlasmaOrdered By: Farhat Castro on 02-05-2023 Calcium [Mass/Vol] 9.2 mg/dL 8.6-10.3 [facility] Carbon dioxide, total [Moles /volume] in Serum or PlasmaOrdered By: Fahrat Castro on 02-05-2023 CO2 [Moles/Vol] 23.5 mmol/L 21.0-31.0 [facility] Chloride [Moles/volume] in S gale or PlasmaOrdered By: Farhat Castro on 02-05-2023 Chloride [Moles/Vol] 107 mmol/L 98-107 [facility] Creatine kinase [Enzymatic a ctivity/volume] in Serum or PlasmaOrdered By: Farhat Castro on 02-05-2023 CK [Catalytic activity/Vol] 53 U/L 30-223 [facility] Creatinine [Mass/volume] in Serum or PlasmaOrdered By: Farhat Castro on 02-05-2023 Creatinine [Mass/Vol] 0.55 mg/dL 0.60-1.20 [facility] Eosinophils Auto (Bld) [#/Vo l]Ordered By: Farhat Castro on 02-05-2023 Eosinophils (Bld) [#/Vol] 0.1 10*3/uL 0.0-0.45 [facility] Eosinophils/100 WBC Auto (Bl d)Ordered By: Farhat Castro on 02-05-2023 Eosinophils/100 WBC (Bld) 0.8 % . [facility] Erythrocyte distribution wid th Auto (RBC) [Ratio]Ordered By: Farhat Castro on 02-05-2023 Erythrocyte distribution width (RBC) [Ratio] 18.2 % 11.9-15.3 [facility] Glucose [Mass/volume] in Ser um or PlasmaOrdered By: Farhat Castro on 02-05-2023 Glucose [Mass/Vol] 104 mg/dL 70-100 [facility] Comment on above: ADA recommended refe rence rangeRandom Glucose Reference Range is dependent on time and content of last meal. Glucose of more than 200 mg/dL in a nonstressed, ambulatory subject supports the diagnosis of Diabetes Mellitus. Hematocrit Auto (Bld) [Volum e fraction]Ordered By: Farhat Castro on 02-05-2023 Hematocrit (Bld) [Volume fraction] 43.5 % 34.0-46.4 [facility] Hemoglobin [Mass/volume] in BloodOrdered By: Farhat Castro on 02-05-2023 Hemoglobin (Bld) [Mass/Vol] 13.9 g/dL 11.8-15.4 [facility] - CoagulationOrde red By: Farhat Castro on 02-05-2023 PT Coag (PPP) [Time] 11.5 s 9.0-12.9 [facility] Leukocytes [#/volume] correc taurus for nucleated erythrocytes in Blood by Automated counOrdered By: Farhat Castro on 02-05-2023 WBC corrected for nucl RBC Auto (Bld) [#/Vol] 13.3 10*3/uL 3.8-11.6 [facility] Lymphocytes Auto (Bld) [#/Vo l]Ordered By: Farhat Castro on 02-05-2023 Lymphocytes (Bld) [#/Vol] 2.5 10*3/uL 1.00-4.8 [facility] Lymphocytes/100 WBC Auto (Bl d)Ordered By: Farhat Castro on 02-05-2023 Lymphocytes/100 WBC (Bld) 18.5 % . [facility] MCH Auto (RBC) [Entitic mass ]Ordered By: Farhat Castro on 02-05-2023 MCH (RBC) [Entitic mass] 25.5 pg 24.7-34.3 [facility] MCHC Auto (RBC) [Mass/Vol]Or dered By: Farhat Castro on 02-05-2023 MCHC (RBC) [Mass/Vol] 32.0 g/dL 32.0-35.0 [facility] MCV Auto (RBC) [Entitic vol] Ordered By: Farhat Castro on 02-05-2023 MCV (RBC) [Entitic vol] 79.8 fL 80-100 [facility] Microcytes LM Ql (Bld)Ordere d By: Farhat Castro on 02-05-2023 Microcytes Ql (Bld) Slight [facility] Monocyte distribution width [Entitic volume] in Blood by AutomatedOrdered By: Farhat Castro on 02-05-2023 Monocyte distribution width Auto (Bld) [Entitic vol] 17.41 % 0.00-20.00 [facility] Monocytes Auto (Bld) [#/Vol] Ordered By: Farhat Castro on 02-05-2023 Monocytes (Bld) [#/Vol] 0.7 10*3/uL 0.0-0.8 [facility] Monocytes/100 WBC Auto (Bld) Ordered By: Farhat Castro on 02-05-2023 Monocytes/100 WBC (Bld) 5.6 % . [facility] Natriuretic peptide B [Mass/ Vol]Ordered By: Farhat Castro on 02-05-2023 Natriuretic peptide B (Bld) [Mass/Vol] 23.0 pg/mL 5-100 [facility] Neutrophils Auto (Bld) [#/Vo l]Ordered By: Farhat Castro on 02-05-2023 Neutrophils (Bld) [#/Vol] 9.9 10*3/uL 1.8-7.7 [facility] Neutrophils/100 WBC Auto (Bl d)Ordered By: Farhat Castro on 02-05-2023 Neutrophils/100 WBC (Bld) 74.2 % . [facility] No Panel InformationOrdered By: Farhat Castro on 02-05-2023 Estimated GFR (CKD-EPI) > 60.0 mL/Min [facility] Creatinine Clearance (Chem 175.68 [facility] Nucleated erythrocytes [Pres ence] in Blood by Automated countOrdered By: Farhat Castro on 02-05-2023 Nucleated RBC Auto Ql (Bld) 0.1 /100{WBC} 0-0.5 [facility] Platelet adequacy [Presence] in Blood by Light microscopyOrdered By: Farhat Castro on 02-05-2023 Platelets LM Ql (Bld) Normal Normal [facility] Platelet mean volume Auto (B ld) [Entitic vol]Ordered By: Farhat Castro on 02-05-2023 Platelet mean volume (Bld) [Entitic vol] 9.8 fL 6.3-10.7 [facility] Platelet morphology finding [Identifier] in BloodOrdered By: Farhat Castro on 02-05-2023 Platelet morphology finding Nom (Bld) Normal Normal [facility] Platelet poor plasma interna tional normalized ratio (INR) by coagulation assay (relatOrdered By: Farhat Castro on 02-05-2023 INR Coag (PPP) [Relative time] 1.0 {INR} [facility] Comment on above: INR Therapeutic Rang e A) Pre- and Peroperative OAT started two weeks before surgery. NOT HIP SURGERY: 1.5 - 2.5 HIP SURGERY: 2 - 3B) Primary and secondary prevention of venous THROMBOSIS: 2 - 3C) Active venous thrombosis, pulmonary embolismand prevention of recurrent venous thrombosis: 2 - 3D) Prevention of arterial thromboembolismincluding patients with mechanical heart valves: 3 - 4.5 Platelets Auto (Bld) [#/Vol] Ordered By: Farhat Castro on 02-05-2023 Platelets (Bld) [#/Vol] 240 10*3/uL 150-450 [facility] Potassium [Moles/volume] in Serum or PlasmaOrdered By: Farhat Castro on 02-05-2023 Potassium [Moles/Vol] 4.4 mmol/L 3.5-5.1 [facility] RBC Auto (Bld) [#/Vol]Ordere d By: Farhat Casrto on 02-05-2023 RBC (Bld) [#/Vol] 5.45 10*6/uL 3.60-5.00 [facility] RBC morphologyOrdered By: Andrea Castro on 02-05-2023 RBC morphology finding Nom (Bld) N/A [facility] Serum or plasma anion gap de terminationOrdered By: Farhat Castro on 02-05-2023 Anion gap [Moles/Vol] 10.9 mmol/L 6.0-15.0 [facility] Sodium [Moles/volume] in Ser um or PlasmaOrdered By: Farhat Castro on 02-05-2023 Sodium [Moles/Vol] 137 mmol/L 136-145 [facility] Troponin I.cardiac [Mass/vol ume] in Serum or Plasma by Detection limit <= 0.01 ng/Ordered By: Farhat Castro on 02-05-2023 Troponin I.cardiac DL <= 0.01 ng/mL [Mass/Vol] 4.0 pg/mL 0.0-15.0 [facility] Urea nitrogen [Mass/volume] in Serum or PlasmaOrdered By: Farhat Castro on 02-05-2023 Urea nitrogen [Mass/Vol] 16 mg/dL 7-25 [facility] WBC Auto (Bld) [#/Vol]Ordere d By: Farhat Castro on 02-05-2023 WBC (Bld) [#/Vol] 13.3 10*3/uL 3.8-11.6 [facility] Bilirubin Test strip Ql (U)O rdered By: Damien Rashid on 01-15-2023 Bilirubin Ql (U) Negative Negative [facility] Color Auto (U)Ordered By: Ismael Rashid on 01-15-2023 Color (U) Yellow Yellow [facility] HCG ( test) IA.rapi d Ql (U)Ordered By: Damien Rashid on 01-15-2023 HCG ( test) Ql (U) Negative [facility] Ketones Auto test strip (U) [Mass/Vol]Ordered By: Damien Rashid on 01-15-2023 Ketones (U) [Mass/Vol] Negative Negative [facility] Nitrite Test strip Ql (U)Ord ered By: Damien Rashid on 01-15-2023 Nitrite Ql (U) Negative Negative [facility] Potassium [Moles/volume] in Serum or PlasmaOrdered By: Damien Rashid on 01-15-2023 Potassium [Moles/Vol] 3.6 mmol/L 3.5-5.1 [facility] Protein Auto test strip (U) [Mass/Vol]Ordered By: Damien Rashid on 01-15-2023 Protein (U) [Mass/Vol] Negative Negative [facility] Specific gravity Auto test s trip (U) [Rel density]Ordered By: Damien Rashid on 01-15-2023 Specific gravity (U) [Rel density] 1.017 1.001-1.03 0 [facility] Troponin I.cardiac [Mass/vol ume] in Serum or Plasma by Detection limit <= 0.01 ng/Ordered By: Damien Rashid on 01-15-2023 Troponin I.cardiac DL <= 0.01 ng/mL [Mass/Vol] 3.7 pg/mL 0.0-15.0 [facility] Urine clarity by refractomet ry automatedOrdered By: Damien Rashid on 01-15-2023 Clarity Refractometry automated (U) Clear Clear [facility] Urine glucose measurement by automated test strip (mass/volume)Ordered By: Damien Rashid on 01-15-2023 Glucose Auto test strip (U) [Mass/Vol] Normal mg/dL Normal [facility] Urine hemoglobin detection b y automated test stripOrdered By: Damien Rashid on 01-15-2023 Hemoglobin Auto test strip Ql (U) Negative Negative [facility] Urine leukocyte esterase det ection by automated test stripOrdered By: Damien Rashid on 01-15-2023 Leukocyte esterase Auto test strip Ql (U) Negative Negative [facility] Urobilinogen Auto test strip (U) [Mass/Vol]Ordered By: Damien Rashid on 01-15-2023 Urobilinogen (U) [Mass/Vol] Normal mg/dL Normal [facility] pH Auto test strip (U)Ordere d By: Damien Rashid on 01-15-2023 pH (U) 6.0 [pH] 5.0-9.0 [facility] Activated partial thrombopla stin time (aPTT) in platelet poor plasma by coagulation aOrdered By: Damien Rashid on 01-14-2023 aPTT Coag (PPP) [Time] 31.3 s 25.1-36.5 [facility] Basophils Auto (Bld) [#/Vol] Ordered By: Damien Rashid on 01-14-2023 Basophils (Bld) [#/Vol] 0.1 10*3/uL 0.0-0.2 [facility] Basophils/100 WBC Auto (Bld) Ordered By: Damien Rashid on 01-14-2023 Basophils/100 WBC (Bld) 1.0 % . [facility] Calcium [Mass/volume] in Ser um or PlasmaOrdered By: Damien Rashid on 01-14-2023 Calcium [Mass/Vol] 9.1 mg/dL 8.6-10.3 [facility] Carbon dioxide, total [Moles /volume] in Serum or PlasmaOrdered By: Damien Rashid on 01-14-2023 CO2 [Moles/Vol] 24.4 mmol/L 21.0-31.0 [facility] Chloride [Moles/volume] in S gale or PlasmaOrdered By: Damien Rashid on 01-14-2023 Chloride [Moles/Vol] 105 mmol/L 98-107 [facility] Creatinine [Mass/volume] in Serum or PlasmaOrdered By: Damien Rashid on 01-14-2023 Creatinine [Mass/Vol] 0.61 mg/dL 0.60-1.20 [facility] Eosinophils Auto (Bld) [#/Vo l]Ordered By: Damien Rashid on 01-14-2023 Eosinophils (Bld) [#/Vol] 0.1 10*3/uL 0.0-0.45 [facility] Eosinophils/100 WBC Auto (Bl d)Ordered By: Damien Rashid on 01-14-2023 Eosinophils/100 WBC (Bld) 0.8 % . [facility] Erythrocyte distribution wid th Auto (RBC) [Ratio]Ordered By: Damien Rashid on 01-14-2023 Erythrocyte distribution width (RBC) [Ratio] 18.9 % 11.9-15.3 [facility] Glucose [Mass/volume] in Ser um or PlasmaOrdered By: Damien Rashid on 01-14-2023 Glucose [Mass/Vol] 91 mg/dL 74-109 [facility] Comment on above: ADA recommended refe rence rangeRandom Glucose Reference Range is dependent on time and content of last meal. Glucose of more than 200 mg/dL in a nonstressed, ambulatory subject supports the diagnosis of Diabetes Mellitus. Hematocrit Auto (Bld) [Volum e fraction]Ordered By: Damien Rashid on 01-14-2023 Hematocrit (Bld) [Volume fraction] 42.9 % 34.0-46.4 [facility] Hemoglobin [Mass/volume] in BloodOrdered By: Damien Rashid on 01-14-2023 Hemoglobin (Bld) [Mass/Vol] 14.0 g/dL 11.8-15.4 [facility] - Chemistry and C hemistry - challengeOrdered By: Damien Rashid on 01-14-2023 GFR/1.73 sq M.predicted MDRD (S/P/Bld) [Vol rate/Area] mL/min/{1.73_m2} [facility] - CoagulationOrde red By: Damien Rashid on 01-14-2023 PT Coag (PPP) [Time] 12.2 s 9.0-12.9 [facility] Leukocytes [#/volume] correc taurus for nucleated erythrocytes in Blood by Automated counOrdered By: Damien Rashid on 01-14-2023 WBC corrected for nucl RBC Auto (Bld) [#/Vol] 11.7 10*3/uL 3.8-11.6 [facility] Lymphocytes Auto (Bld) [#/Vo l]Ordered By: Damien Rashid on 01-14-2023 Lymphocytes (Bld) [#/Vol] 2.9 10*3/uL 1.00-4.8 [facility] Lymphocytes/100 WBC Auto (Bl d)Ordered By: Damien Rashid on 01-14-2023 Lymphocytes/100 WBC (Bld) 24.4 % . [facility] MCH Auto (RBC) [Entitic mass ]Ordered By: Damien Rashid on 01-14-2023 MCH (RBC) [Entitic mass] 25.7 pg 24.7-34.3 [facility] MCHC Auto (RBC) [Mass/Vol]Or dered By: Damien Rashid on 01-14-2023 MCHC (RBC) [Mass/Vol] 32.7 g/dL 32.0-35.0 [facility] MCV Auto (RBC) [Entitic vol] Ordered By: Damien Rashid on 01-14-2023 MCV (RBC) [Entitic vol] 78.7 fL 80-100 [facility] Monocyte distribution width [Entitic volume] in Blood by AutomatedOrdered By: Damien Rashid on 01-14-2023 Monocyte distribution width Auto (Bld) [Entitic vol] 21.82 % 0.00-20.00 [facility] Comment on above: For adults in ED, MD W > 20.0 may be associated with a higher risk of sepsis during the first 12 hrs of hospital admission Monocytes Auto (Bld) [#/Vol] Ordered By: Damien Rashid on 01-14-2023 Monocytes (Bld) [#/Vol] 0.8 10*3/uL 0.0-0.8 [facility] Monocytes/100 WBC Auto (Bld) Ordered By: Damien Rashid on 01-14-2023 Monocytes/100 WBC (Bld) 6.8 % . [facility] Natriuretic peptide B [Mass/ Vol]Ordered By: Damien Rashid on 01-14-2023 Natriuretic peptide B (Bld) [Mass/Vol] 6.0 pg/mL 5-100 [facility] Neutrophils Auto (Bld) [#/Vo l]Ordered By: Damien Rashid on 01-14-2023 Neutrophils (Bld) [#/Vol] 7.9 10*3/uL 1.8-7.7 [facility] Neutrophils/100 WBC Auto (Bl d)Ordered By: Damien Rashid on 01-14-2023 Neutrophils/100 WBC (Bld) 67.0 % . [facility] No Panel InformationOrdered By: Damien Rashid on 01-14-2023 Pharmacy Creatinine Clearance (Chem 158.87 [facility] Nucleated erythrocytes [Pres ence] in Blood by Automated countOrdered By: Damien Rashid on 01-14-2023 Nucleated RBC Auto Ql (Bld) 0.2 /100{WBC} 0-0.5 [facility] Platelet mean volume Auto (B ld) [Entitic vol]Ordered By: Damien Rashid on 01-14-2023 Platelet mean volume (Bld) [Entitic vol] 9.8 fL 6.3-10.7 [facility] Platelet poor plasma interna tional normalized ratio (INR) by coagulation assay (relatOrdered By: Damien Rashid on 01-14-2023 INR Coag (PPP) [Relative time] 1.0 {INR} [facility] Comment on above: INR Therapeutic Rang e A) Pre- and Peroperative OAT started two weeks before surgery. NOT HIP SURGERY: 1.5 - 2.5 HIP SURGERY: 2 - 3B) Primary and secondary prevention of venous THROMBOSIS: 2 - 3C) Active venous thrombosis, pulmonary embolismand prevention of recurrent venous thrombosis: 2 - 3D) Prevention of arterial thromboembolismincluding patients with mechanical heart valves: 3 - 4.5 Platelets Auto (Bld) [#/Vol] Ordered By: Damien Rashid on 01-14-2023 Platelets (Bld) [#/Vol] 254 10*3/uL 150-450 [facility] RBC Auto (Bld) [#/Vol]Ordere d By: Damien Rashid on 01-14-2023 RBC (Bld) [#/Vol] 5.44 10*6/uL 3.60-5.00 [facility] Serum or plasma anion gap de terminationOrdered By: Damien Rashid on 01-14-2023 Anion gap [Moles/Vol] N/A [facility] Sodium [Moles/volume] in Ser um or PlasmaOrdered By: Damien Rashid on 01-14-2023 Sodium [Moles/Vol] 138 mmol/L 136-145 [facility] Urea nitrogen [Mass/volume] in Serum or PlasmaOrdered By: Damien Rashid on 01-14-2023 Urea nitrogen [Mass/Vol] 16 mg/dL 7-25 [facility] WBC Auto (Bld) [#/Vol]Ordere d By: Damien Rashid on 01-14-2023 WBC (Bld) [#/Vol] 11.7 10*3/uL 3.8-11.6 [facility] Basophils Auto (Bld) [#/Vol] Ordered By: Larissa Resendiz on 01-11-2023 Basophils (Bld) [#/Vol] 0.1 10*3/uL 0.0-0.2 [facility] Basophils/100 WBC Auto (Bld) Ordered By: Larissa Resendiz on 01-11-2023 Basophils/100 WBC (Bld) 0.5 % . [facility] Eosinophils Auto (Bld) [#/Vo l]Ordered By: Larissa Resendiz on 01-11-2023 Eosinophils (Bld) [#/Vol] 0.1 10*3/uL 0.0-0.45 [facility] Eosinophils/100 WBC Auto (Bl d)Ordered By: Larissa Resendiz on 01-11-2023 Eosinophils/100 WBC (Bld) 1.0 % . [facility] Erythrocyte distribution wid th Auto (RBC) [Ratio]Ordered By: Larissa Resendiz on 01-11-2023 Erythrocyte distribution width (RBC) [Ratio] 19.5 % 11.9-15.3 [facility] Hematocrit Auto (Bld) [Volum e fraction]Ordered By: Larissa Resendiz on 01-11-2023 Hematocrit (Bld) [Volume fraction] 41.4 % 34.0-46.4 [facility] Hemoglobin [Mass/volume] in BloodOrdered By: Larissa Resendiz on 01-11-2023 Hemoglobin (Bld) [Mass/Vol] 13.3 g/dL 11.8-15.4 [facility] Leukocytes [#/volume] correc taurus for nucleated erythrocytes in Blood by Automated counOrdered By: Larissa Resendiz on 01-11-2023 WBC corrected for nucl RBC Auto (Bld) [#/Vol] 12.9 10*3/uL 3.8-11.6 [facility] Lymphocytes Auto (Bld) [#/Vo l]Ordered By: Larissa Resendiz on 01-11-2023 Lymphocytes (Bld) [#/Vol] 2.9 10*3/uL 1.00-4.8 [facility] Lymphocytes/100 WBC Auto (Bl d)Ordered By: Larissa Resendiz on 01-11-2023 Lymphocytes/100 WBC (Bld) 22.7 % . [facility] MCH Auto (RBC) [Entitic mass ]Ordered By: Larissa Resendiz on 01-11-2023 MCH (RBC) [Entitic mass] 25.4 pg 24.7-34.3 [facility] MCHC Auto (RBC) [Mass/Vol]Or dered By: Larissa Resendiz on 01-11-2023 MCHC (RBC) [Mass/Vol] 32.3 g/dL 32.0-35.0 [facility] MCV Auto (RBC) [Entitic vol] Ordered By: Larissa Resendiz on 01-11-2023 MCV (RBC) [Entitic vol] 78.8 fL 80-100 [facility] Monocytes Auto (Bld) [#/Vol] Ordered By: Larissa Resendiz on 01-11-2023 Monocytes (Bld) [#/Vol] 0.5 10*3/uL 0.0-0.8 [facility] Monocytes/100 WBC Auto (Bld) Ordered By: Larissa Resendiz on 01-11-2023 Monocytes/100 WBC (Bld) 4.1 % . [facility] Neutrophils Auto (Bld) [#/Vo l]Ordered By: Larissa Resendiz on 01-11-2023 Neutrophils (Bld) [#/Vol] 9.2 10*3/uL 1.8-7.7 [facility] Neutrophils/100 WBC Auto (Bl d)Ordered By: Larissa Resendiz on 01-11-2023 Neutrophils/100 WBC (Bld) 71.7 % . [facility] Nucleated erythrocytes [Pres ence] in Blood by Automated countOrdered By: Larissa Resendiz on 01-11-2023 Nucleated RBC Auto Ql (Bld) 0.1 /100{WBC} 0-0.5 [facility] Platelet mean volume Auto (B ld) [Entitic vol]Ordered By: Larissa Resendiz on 01-11-2023 Platelet mean volume (Bld) [Entitic vol] 10.6 fL 6.3-10.7 [facility] Platelets Auto (Bld) [#/Vol] Ordered By: Larissa Resendiz on 01-11-2023 Platelets (Bld) [#/Vol] 250 10*3/uL 150-450 [facility] RBC Auto (Bld) [#/Vol]Ordere d By: Larissa Resendiz on 01-11-2023 RBC (Bld) [#/Vol] 5.25 10*6/uL 3.60-5.00 [facility] WBC Auto (Bld) [#/Vol]Ordere d By: Larissa Resendiz on 01-11-2023 WBC (Bld) [#/Vol] 12.9 10*3/uL 3.8-11.6 [facility] Alanine aminotransferase [En zymatic activity/volume] in Serum or PlasmaOrdered By: Jah Almonte on 01-10-2023 ALT [Catalytic activity/Vol] 16 U/L [facility] Alanine aminotransferase [En zymatic activity/volume] in Serum or PlasmaOrdered By: Larissa Resendiz on 01-10-2023 ALT [Catalytic activity/Vol] 15 U/L [facility] Albumin [Mass/volume] in Ser um or Plasma by Bromocresol green (BCG) dye binding methoOrdered By: Jah Almonte on 01-10-2023 Albumin BCG dye [Mass/Vol] 4.2 g/dL 3.5-5.7 [facility] Albumin [Mass/volume] in Ser um or Plasma by Bromocresol green (BCG) dye binding methoOrdered By: Larissa Resendiz on 01-10-2023 Albumin BCG dye [Mass/Vol] 4.1 g/dL 3.5-5.7 [facility] Alkaline phosphatase [Enzyma tic activity/volume] in Serum or PlasmaOrdered By: Jah Almonte on 01-10-2023 ALP [Catalytic activity/Vol] 94 U/L 34-104 [facility] Alkaline phosphatase [Enzyma tic activity/volume] in Serum or PlasmaOrdered By: Larissa Resendiz on 01-10-2023 ALP [Catalytic activity/Vol] 92 U/L 34-104 [facility] Aspartate aminotransferase [ Enzymatic activity/volume] in Serum or PlasmaOrdered By: Jah Almonte on 01-10-2023 AST [Catalytic activity/Vol] 14 U/L 1339 [facility] Aspartate aminotransferase [ Enzymatic activity/volume] in Serum or PlasmaOrdered By: Larissa Resendiz on 01-10-2023 AST [Catalytic activity/Vol] 15 U/L 39 [facility] Basophils Auto (Bld) [#/Vol] Ordered By: Jah Almonte on 01-10-2023 Basophils (Bld) [#/Vol] 0.1 10*3/uL 0.0-0.2 [facility] Basophils/100 WBC Auto (Bld) Ordered By: Jah Almonte on 01-10-2023 Basophils/100 WBC (Bld) 0.8 % . [facility] Bilirubin Test strip Ql (U)O rdered By: Jah Almonte on 01-10-2023 Bilirubin Ql (U) Negative Negative [facility] Bilirubin.total [Mass/volume ] in Serum or PlasmaOrdered By: Jah Almonte on 01-10-2023 Bilirubin [Mass/Vol] 0.3 mg/dL 0.3-1.0 [facility] Bilirubin.total [Mass/volume ] in Serum or PlasmaOrdered By: Larissa Resendiz on 01-10-2023 Bilirubin [Mass/Vol] 0.2 mg/dL 0.3-1.0 [facility] Calcium [Mass/volume] in Ser um or PlasmaOrdered By: Jah Almonte on 01-10-2023 Calcium [Mass/Vol] 9.0 mg/dL 8.6-10.3 [facility] Calcium [Mass/volume] in Ser um or PlasmaOrdered By: Larissa Resendiz on 01-10-2023 Calcium [Mass/Vol] 8.9 mg/dL 8.6-10.3 [facility] Carbon dioxide, total [Moles /volume] in Serum or PlasmaOrdered By: Jah Almonte on 01-10-2023 CO2 [Moles/Vol] 25.8 mmol/L 21.0-31.0 [facility] Carbon dioxide, total [Moles /volume] in Serum or PlasmaOrdered By: Larissa Resendiz on 01-10-2023 CO2 [Moles/Vol] 22.9 mmol/L 21.0-31.0 [facility] Chloride [Moles/volume] in S gale or PlasmaOrdered By: Jah Almonte on 01-10-2023 Chloride [Moles/Vol] 105 mmol/L 98-107 [facility] Chloride [Moles/volume] in S gale or PlasmaOrdered By: Larissa Resendiz on 01-10-2023 Chloride [Moles/Vol] 104 mmol/L 98-107 [facility] Cholesterol [Mass/volume] in Serum or PlasmaOrdered By: Larissa Resendiz on 01-10-2023 Cholesterol [Mass/Vol] 213 mg/dL 140-200 [facility] Comment on above: Chol less than 200 m g/dl low riskChol 201-239 mg/dl borderline riskChol 240 mg/dl and greater high risk Cholesterol in LDL Calc [Mas s/Vol]Ordered By: Larissa Resendiz on 01-10-2023 Cholesterol in LDL [Mass/Vol] 141 mg/dL 0-100 [facility] Comment on above: LDL ATP III CLASSIFI CATIONLDL less than 100 mg/dL OptimalLDL 100-129 mg/dL Near or above optimalLDL 130-159 mg/dL Borderline highLDL 160-189 mg/dL HighLDL greater than 189 mg/dL Very high Cholesterol in VLDL Calc [Ma ss/Vol]Ordered By: Larissa Resendiz on 01-10-2023 Cholesterol in VLDL [Mass/Vol] 23 mg/dL [facility] Color Auto (U)Ordered By: Cali Almonte on 01-10-2023 Color (U) Yellow Yellow [facility] Creatinine [Mass/volume] in Serum or PlasmaOrdered By: Jah Almonte on 01-10-2023 Creatinine [Mass/Vol] 0.67 mg/dL 0.60-1.20 [facility] Creatinine [Mass/volume] in Serum or PlasmaOrdered By: Larissa Resendiz on 01-10-2023 Creatinine [Mass/Vol] 0.66 mg/dL 0.60-1.20 [facility] Eosinophils Auto (Bld) [#/Vo l]Ordered By: Jah Almonte on 01-10-2023 Eosinophils (Bld) [#/Vol] 0.1 10*3/uL 0.0-0.45 [facility] Eosinophils/100 WBC Auto (Bl d)Ordered By: Jah Almonte on 01-10-2023 Eosinophils/100 WBC (Bld) 0.8 % . [facility] Erythrocyte distribution wid th Auto (RBC) [Ratio]Ordered By: Jah Almonte on 01-10-2023 Erythrocyte distribution width (RBC) [Ratio] 19.3 % 11.9-15.3 [facility] Globulin Calc (S) [Mass/Vol] Ordered By: Jah Almonte on 01-10-2023 Globulin (S) [Mass/Vol] 2.7 g/dL [facility] Globulin Calc (S) [Mass/Vol] Ordered By: Larissa Resendiz on 01-10-2023 Globulin (S) [Mass/Vol] 2.8 g/dL [facility] Glucose Glucometer (BldC) [M ass/Vol]Ordered By: Jah Almonte on 01-10-2023 Glucose [Mass/Vol] 142 mg/dL [facility] Comment on above: Random Glucose Refer ence Range is dependent on time and content of last meal. Glucose of more than 200 mg/dL in a nonstressed, ambulatory subject supports the diagnosis of Diabetes Mellitus. Glucose [Mass/volume] in Ser um or PlasmaOrdered By: Jah Almonte on 01-10-2023 Glucose [Mass/Vol] 140 mg/dL 74-109 [facility] Comment on above: ADA recommended refe rence rangeRandom Glucose Reference Range is dependent on time and content of last meal. Glucose of more than 200 mg/dL in a nonstressed, ambulatory subject supports the diagnosis of Diabetes Mellitus. Glucose [Mass/volume] in Ser um or PlasmaOrdered By: Larissa Resendiz on 01-10-2023 Glucose [Mass/Vol] 138 mg/dL 74-109 [facility] Comment on above: ADA recommended refe rence rangeRandom Glucose Reference Range is dependent on time and content of last meal. Glucose of more than 200 mg/dL in a nonstressed, ambulatory subject supports the diagnosis of Diabetes Mellitus. HCG ( test) IA.rapi d Ql (U)Ordered By: Jah Almonte on 01-10-2023 HCG ( test) Ql (U) Negative [facility] Hematocrit Auto (Bld) [Volum e fraction]Ordered By: Jah Almonte on 01-10-2023 Hematocrit (Bld) [Volume fraction] 40.9 % 34.0-46.4 [facility] Hemoglobin [Mass/volume] in BloodOrdered By: Jah Almonte on 01-10-2023 Hemoglobin (Bld) [Mass/Vol] 13.5 g/dL 11.8-15.4 [facility] Ketones Auto test strip (U) [Mass/Vol]Ordered By: Jah Almonte on 01-10-2023 Ketones (U) [Mass/Vol] Negative Negative [facility] Laboratory - Chemistry and C hemistry - challengeOrdered By: Jah Almonte on 01-10-2023 GFR/1.73 sq M.predicted MDRD (S/P/Bld) [Vol rate/Area] mL/min/{1.73_m2} [facility] Leukocytes [#/volume] correc taurus for nucleated erythrocytes in Blood by Automated counOrdered By: Jah Almonte on 01-10-2023 WBC corrected for nucl RBC Auto (Bld) [#/Vol] 13.3 10*3/uL 3.8-11.6 [facility] Lymphocytes Auto (Bld) [#/Vo l]Ordered By: Jah Almonte on 01-10-2023 Lymphocytes (Bld) [#/Vol] 2.9 10*3/uL 1.00-4.8 [facility] Lymphocytes/100 WBC Auto (Bl d)Ordered By: Jah Almonte on 01-10-2023 Lymphocytes/100 WBC (Bld) 21.5 % . [facility] MCH Auto (RBC) [Entitic mass ]Ordered By: Jah Almonte on 01-10-2023 MCH (RBC) [Entitic mass] 25.8 pg 24.7-34.3 [facility] MCHC Auto (RBC) [Mass/Vol]Or dered By: Jah Almonte on 01-10-2023 MCHC (RBC) [Mass/Vol] 33.1 g/dL 32.0-35.0 [facility] MCV Auto (RBC) [Entitic vol] Ordered By: Jah Almonte on 01-10-2023 MCV (RBC) [Entitic vol] 77.9 fL 80-100 [facility] Magnesium [Mass/volume] in S gale or PlasmaOrdered By: Jah Almonte on 01-10-2023 Magnesium [Mass/Vol] 2.2 mg/dL 1.9-2.7 [facility] Monocyte distribution width [Entitic volume] in Blood by AutomatedOrdered By: Jah Almonte on 01-10-2023 Monocyte distribution width Auto (Bld) [Entitic vol] 20.66 % 0.00-20.00 [facility] Comment on above: For adults in ED, MD W > 20.0 may be associated with a higher risk of sepsis during the first 12 hrs of hospital admission Monocytes Auto (Bld) [#/Vol] Ordered By: Jah Almonte on 01-10-2023 Monocytes (Bld) [#/Vol] 0.6 10*3/uL 0.0-0.8 [facility] Monocytes/100 WBC Auto (Bld) Ordered By: Jah Almonte on 01-10-2023 Monocytes/100 WBC (Bld) 4.2 % . [facility] Neutrophils Auto (Bld) [#/Vo l]Ordered By: Jah Almonte on 01-10-2023 Neutrophils (Bld) [#/Vol] 9.7 10*3/uL 1.8-7.7 [facility] Neutrophils/100 WBC Auto (Bl d)Ordered By: Jah Almonte on 01-10-2023 Neutrophils/100 WBC (Bld) 72.7 % . [facility] Nitrite Test strip Ql (U)Ord ered By: Jah Almonte on 01-10-2023 Nitrite Ql (U) Negative Negative [facility] No Panel InformationOrdered By: Jah Almonte on 01-10-2023 Bedside Glucose #2 Comment Cleaned meter [facility] Bedside Glucose Comment See comment [facility] Comment on above: Glu2: WILL NOTIFY DR /RN Pharmacy Creatinine Clearance (Chem 146.37 [facility] No Panel InformationOrdered By: Larissa Resendiz on 01-10-2023 Pharmacy Creatinine Clearance (Chem N/A [facility] Nucleated erythrocytes [Pres ence] in Blood by Automated countOrdered By: Jah Almonte on 01-10-2023 Nucleated RBC Auto Ql (Bld) 0.0 /100{WBC} 0-0.5 [facility] Platelet mean volume Auto (B ld) [Entitic vol]Ordered By: Jah Almonte on 01-10-2023 Platelet mean volume (Bld) [Entitic vol] 9.4 fL 6.3-10.7 [facility] Platelets Auto (Bld) [#/Vol] Ordered By: Jah Almonte on 01-10-2023 Platelets (Bld) [#/Vol] 241 10*3/uL 150-450 [facility] Potassium [Moles/volume] in Serum or PlasmaOrdered By: Jah Almonte on 01-10-2023 Potassium [Moles/Vol] 3.5 mmol/L 3.5-5.1 [facility] Protein Auto test strip (U) [Mass/Vol]Ordered By: Jah Almonte on 01-10-2023 Protein (U) [Mass/Vol] Negative Negative [facility] Protein [Mass/volume] in Ser um or PlasmaOrdered By: Jah Almonte on 01-10-2023 Protein [Mass/Vol] 6.9 g/dL 6.4-8.9 [facility] RBC Auto (Bld) [#/Vol]Ordere d By: Jah Almonte on 01-10-2023 RBC (Bld) [#/Vol] 5.25 10*6/uL 3.60-5.00 [facility] Serum or plasma albumin/glob ulin mass ratioOrdered By: Jah Almonte on 01-10-2023 Albumin/Globulin [Mass ratio] 1.6 {ratio} [facility] Serum or plasma albumin/glob ulin mass ratioOrdered By: Larissa Resendiz on 01-10-2023 Albumin/Globulin [Mass ratio] 1.5 {ratio} [facility] Serum or plasma anion gap de terminationOrdered By: Jah Almonte on 01-10-2023 Anion gap [Moles/Vol] 11.7 mmol/L 6.0-15.0 [facility] Serum or plasma anion gap de terminationOrdered By: Larissa Resendiz on 01-10-2023 Anion gap [Moles/Vol] 15.6 mmol/L 6.0-15.0 [facility] Serum or plasma high density lipoprotein (HDL) cholesterol measurementOrdered By: Larissa Resendiz on 01-10-2023 Cholesterol in HDL [Mass/Vol] 48 mg/dL 35-85 [facility] Comment on above: HDL CHOL ATP-III CLA SSIFICATION Cardiovascular RiskHDL > or equal to 60 mg/dL LOWHDL < 40 mg/dL HIGH Serum or plasma total choles terol/high density lipoprotein (HDL) cholesterol mass ratOrdered By: Larissa Resendiz on 01-10-2023 Cholesterol.total/Chol esterol in HDL [Mass ratio] 4.4 {ratio} <5.0 [facility] Sodium [Moles/volume] in Ser um or PlasmaOrdered By: Jah Almonte on 01-10-2023 Sodium [Moles/Vol] 139 mmol/L 136-145 [facility] Specific gravity Auto test s trip (U) [Rel density]Ordered By: Jah Almonte on 01-10-2023 Specific gravity (U) [Rel density] 1.015 1.001-1.03 0 [facility] Thyrotropin [Units/volume] i n Serum or PlasmaOrdered By: Larissa Resendiz on 01-10-2023 TSH Qn 1.60 m[IU]/L 0.45-5.33 [facility] Triglyceride [Mass/volume] i n Serum or PlasmaOrdered By: Larissa Resendiz on 01-10-2023 Triglyceride [Mass/Vol] 119 mg/dL 0-149 [facility] Comment on above: TRIG ATP III CLASSIF ICATIONTRIG less than 150 mg/dL NormalTRIG 150-199 mg/dL Borderline highTRIG 200-500 mg/dL High TRIG greater than 500 mg/dL Very highStandard traceable to the Center for Disease Conrtrol and Prevention (CDC) test method. Troponin I.cardiac [Mass/vol ume] in Serum or Plasma by Detection limit <= 0.01 ng/Ordered By: Jah Almonte on 01-10-2023 Troponin I.cardiac DL <= 0.01 ng/mL [Mass/Vol] 3.6 pg/mL 0.0-15.0 [facility] Urea nitrogen [Mass/volume] in Serum or PlasmaOrdered By: Jah Almonte on 01-10-2023 Urea nitrogen [Mass/Vol] 20 mg/dL 7-25 [facility] Urine clarity by refractomet ry automatedOrdered By: Jah Almonte on 01-10-2023 Clarity Refractometry automated (U) Clear Clear [facility] Urine glucose measurement by automated test strip (mass/volume)Ordered By: Jah Almonte on 01-10-2023 Glucose Auto test strip (U) [Mass/Vol] Normal mg/dL Normal [facility] Urine hemoglobin detection b y automated test stripOrdered By: Jah Almonte on 01-10-2023 Hemoglobin Auto test strip Ql (U) Negative Negative [facility] Urine leukocyte esterase det ection by automated test stripOrdered By: Jah Almonte on 01-10-2023 Leukocyte esterase Auto test strip Ql (U) Negative Negative [facility] Urobilinogen Auto test strip (U) [Mass/Vol]Ordered By: Jah Almonte on 01-10-2023 Urobilinogen (U) [Mass/Vol] Normal mg/dL Normal [facility] Vitamin B12 ser/plasOrdered By: Larissa Resendiz on 01-10-2023 Cobalamin (Vitamin B12) [Mass/Vol] 457 pg/mL 180-914 [facility] WBC Auto (Bld) [#/Vol]Ordere d By: Jah Almonte on 01-10-2023 WBC (Bld) [#/Vol] 13.3 10*3/uL 3.8-11.6 [facility] pH Auto test strip (U)Ordere d By: Jah Almonte on 01-10-2023 pH (U) 5.5 [pH] 5.0-9.0 [facility] Albumin [Mass/volume] in Bod y fluidOrdered By: Keith Oseguera on 12-27-2022 Albumin (Body fld) [Mass/Vol] 3.6 g/dL 3.2-5.5 [facility] Alkaline phosphatase [Enzyma tic activity/volume] in Serum or PlasmaOrdered By: Keith Oseguera on 12-27-2022 ALP [Catalytic activity/Vol] 95 U/L 32-92 [facility] Aspartate aminotransferase [ Enzymatic activity/volume] in Serum or PlasmaOrdered By: Keith Oseguera on 12-27-2022 AST [Catalytic activity/Vol] 17 U/L 10-42 [facility] Basophils Auto (Bld) [#/Vol] Ordered By: Keith Oseguera on 12-27-2022 Basophils (Bld) [#/Vol] 0.1 10*3/uL 0.0-0.2 [facility] Basophils/100 WBC Auto (Bld) Ordered By: Keith Oseguera on 12-27-2022 Basophils/100 WBC (Bld) 0.8 % . [facility] Bilirubin Test strip Ql (U)O rdered By: Keith Oseguera on 12-27-2022 Bilirubin Ql (U) Negative Negative [facility] Bilirubin.total [Mass/volume ] in Serum or PlasmaOrdered By: Keith Oseguera on 12-27-2022 Bilirubin [Mass/Vol] 0.2 mg/dL 0.3-1.2 [facility] COVID CepheidOrdered By: Dusty Oseguera on 12-27-2022 SARS-CoV-2 (COVID-19) Ab IA Ql Negative Negative [facility] Comment on above: This is a duplicate [employer] X[employer] Xpress CoV-2/Flu/RSV Plus RNA by RT-PCR result to be used for statistical tracking purpose only. SARS-CoV-2 (COVID-19) RNA JUDIT+probe Ql (Unsp spec) [facility] SARS-CoV-2 (COVID-19) RNA JUDIT+probe Ql (Unsp spec) [facility] Calcium [Mass/volume] in Ser um or PlasmaOrdered By: Keith Oseguera on 12-27-2022 Calcium [Mass/Vol] 8.9 mg/dL 8.2-10.2 [facility] Carbon dioxide, total [Moles /volume] in Serum or PlasmaOrdered By: Keith Oseguera on 12-27-2022 CO2 [Moles/Vol] 25.8 mmol/L 22.0-30.0 [facility] Chloride [Moles/volume] in S gale or PlasmaOrdered By: Keith Oseguera on 12-27-2022 Chloride [Moles/Vol] 103 mmol/L 95-114 [facility] Color Auto (U)Ordered By: Hudson evangelist Parish on 12-27-2022 Color (U) Yellow Yellow [facility] Creatinine and Glomerular fi ltration rate.predicted panel (S/P/Bld)Ordered By: Keith Oseguera on 12-27-2022 Creatinine [Mass/Vol] 0.69 mg/dL 0.44-1.03 [facility] Eosinophils Auto (Bld) [#/Vo l]Ordered By: Keith Oseguera on 12-27-2022 Eosinophils (Bld) [#/Vol] 0.1 10*3/uL 0.0-0.45 [facility] Eosinophils/100 WBC Auto (Bl d)Ordered By: Keith Oseguera on 12-27-2022 Eosinophils/100 WBC (Bld) 0.9 % . [facility] Erythrocyte distribution wid th Auto (RBC) [Ratio]Ordered By: Keith Oseguera on 12-27-2022 Erythrocyte distribution width (RBC) [Ratio] 20.8 % 11.9-15.3 [facility] Estimated glomerular filtrat ion rate (GFR) non- AmericanOrdered By: Keith Oseguera on 12-27-2022 GFR/1.73 sq M.predicted among non-blacks MDRD (S/P/Bld) [Vol rate/Area] > 60 mL/Min [facility] Globulin Calc (S) [Mass/Vol] Ordered By: Keith Oseguera on 12-27-2022 Globulin (S) [Mass/Vol] 2.8 g/dL [facility] Glucose [Mass/volume] in Ser um or PlasmaOrdered By: Keith Oseguera on 12-27-2022 Glucose [Mass/Vol] 116 mg/dL 70-100 [facility] Comment on above: ADA recommended refe rence rangeRandom Glucose Reference Range is dependent on time and content of last meal. Glucose of more than 200 mg/dL in a nonstressed, ambulatory subject supports the diagnosis of Diabetes Mellitus. Hematocrit Auto (Bld) [Volum e fraction]Ordered By: Keith Oseguera on 12-27-2022 Hematocrit (Bld) [Volume fraction] 40.6 % 34.0-46.4 [facility] Hemoglobin [Mass/volume] in BloodOrdered By: Keith Oseguera on 12-27-2022 Hemoglobin (Bld) [Mass/Vol] 13.1 g/dL 11.8-15.4 [facility] Ketones Auto test strip (U) [Mass/Vol]Ordered By: Keith Oseguera on 12-27-2022 Ketones (U) [Mass/Vol] Negative Negative Fi [facility] Laboratory - Chemistry and C hemistry - challengeOrdered By: Keith Oseguera on 12-27-2022 Lipase [Catalytic activity/Vol] 27.0 U/L 22-51 [facility] Leukocytes [#/volume] correc taurus for nucleated erythrocytes in Blood by Automated counOrdered By: Keith Oseguera on 12-27-2022 WBC corrected for nucl RBC Auto (Bld) [#/Vol] 13.7 10*3/uL 3.8-11.6 [facility] Lymphocytes Auto (Bld) [#/Vo l]Ordered By: Keith Oseguera on 12-27-2022 Lymphocytes (Bld) [#/Vol] 3.0 10*3/uL 1.00-4.8 [facility] Lymphocytes/100 WBC Auto (Bl d)Ordered By: Keith Oseguera on 12-27-2022 Lymphocytes/100 WBC (Bld) 22.2 % . [facility] MCH Auto (RBC) [Entitic mass ]Ordered By: Keith Oseguera on 12-27-2022 MCH (RBC) [Entitic mass] 24.8 pg 24.7-34.3 [facility] MCHC Auto (RBC) [Mass/Vol]Or dered By: Keith Oseguera on 12-27-2022 MCHC (RBC) [Mass/Vol] 32.2 g/dL 32.0-35.0 [facility] MCV Auto (RBC) [Entitic vol] Ordered By: Keith Oseguera on 12-27-2022 MCV (RBC) [Entitic vol] 77.1 fL 80-100 [facility] Monocyte distribution width [Entitic volume] in Blood by AutomatedOrdered By: Keith Oseguera on 12-27-2022 Monocyte distribution width Auto (Bld) [Entitic vol] 17.58 % 0.00-20.00 [facility] Monocytes Auto (Bld) [#/Vol] Ordered By: Keith Oseguera on 12-27-2022 Monocytes (Bld) [#/Vol] 0.6 10*3/uL 0.0-0.8 [facility] Monocytes/100 WBC Auto (Bld) Ordered By: Keith Oseguera on 12-27-2022 Monocytes/100 WBC (Bld) 4.6 % . [facility] Neutrophils Auto (Bld) [#/Vo l]Ordered By: Keith Oseguera on 12-27-2022 Neutrophils (Bld) [#/Vol] 9.8 10*3/uL 1.8-7.7 [facility] Neutrophils/100 WBC Auto (Bl d)Ordered By: Keith Oseguera on 12-27-2022 Neutrophils/100 WBC (Bld) 71.5 % . [facility] Nitrite Test strip Ql (U)Ord ered By: Keith Oseguera on 12-27-2022 Nitrite Ql (U) Negative Negative [facility] No Panel InformationOrdered By: Keith Oseguera on 12-27-2022 D-Dimer Quantitative (PE/DVT) 385 ng/mL 0-243 [facility] Comment on above: The reference range for D-dimer is <243 ng/mL D-dimer units.D-dimer results must be used in conjunction with a clinicalpretest probability (PTP) assessment model for deep veinthrombosis (DVT) and pulmonary embolism (PE). Results <230ng/mL d-dimer units can be used as a negative predictor inpatients with low or moderate probability for DVT/PE.Results above the exclusion threshold of 230 ng/ml D-dimerunits for DVT/PE may indicate the need for furtherdiagnostic testing.D-Dimer can be increased in hospitalized patients due toco-morbid conditions. Estimated GFR () > 60 mL/Min [facility] Comment on above: GFR estimated refere nce range: According to KDOQI guidelines, <60 ml/min/1.73m2 is sufficient to diagnose a patient with chronic kidney disease. Pharmacy Creatinine Clearance (Chem 135.15 [facility] Nucleated erythrocytes [Pres ence] in Blood by Automated countOrdered By: Keith Oseguera on 12-27-2022 Nucleated RBC Auto Ql (Bld) 0.1 /100{WBC} 0-0.5 [facility] Platelet mean volume Auto (B ld) [Entitic vol]Ordered By: Keith Oseguera on 12-27-2022 Platelet mean volume (Bld) [Entitic vol] 9.2 fL 6.3-10.7 [facility] Platelets Auto (Bld) [#/Vol] Ordered By: Keith Oseguera on 12-27-2022 Platelets (Bld) [#/Vol] 267 10*3/uL 150-450 [facility] Potassium [Moles/volume] in Serum or PlasmaOrdered By: Keith Oseguera on 12-27-2022 Potassium [Moles/Vol] 3.6 mmol/L 3.5-5.1 [facility] Protein Auto test strip (U) [Mass/Vol]Ordered By: Keith Oseguera on 12-27-2022 Protein (U) [Mass/Vol] Negative Negative [facility] Protein [Mass/volume] in Ser um or PlasmaOrdered By: Keith Oseguera on 12-27-2022 Protein [Mass/Vol] 6.4 g/dL 6.1-7.9 [facility] RBC Auto (Bld) [#/Vol]Ordere d By: Keith Oseguera on 12-27-2022 RBC (Bld) [#/Vol] 5.27 10*6/uL 3.60-5.00 [facility] Serum or plasma alanine matias otransferase measurement without P-5'-P (enzymatic activiOrdered By: Keith Oseguera on 12-27-2022 ALT No additional P-5'-P [Catalytic activity/Vol] 16 U/L 10-60 [facility] Serum or plasma albumin/glob ulin mass ratioOrdered By: Keith Oseguera on 12-27-2022 Albumin/Globulin [Mass ratio] 1.3 {ratio} [facility] Serum or plasma anion gap de terminationOrdered By: Keith Oseguera on 12-27-2022 Anion gap [Moles/Vol] 12.8 mmol/L 6.0-15.0 [facility] Sodium [Moles/volume] in Ser um or PlasmaOrdered By: Keith Oseguera on 12-27-2022 Sodium [Moles/Vol] 138 mmol/L 136-146 [facility] Specific gravity Auto test s trip (U) [Rel density]Ordered By: Keith Oseguera on 12-27-2022 Specific gravity (U) [Rel density] 1.026 1.001-1.03 0 [facility] Troponin I.cardiac [Mass/vol ume] in Serum or Plasma by High sensitivity methodOrdered By: Keith Oseguera on 12-27-2022 Troponin I.cardiac High sensitivity method [Mass/Vol] 4 pg/mL 0-15 [facility] Urea nitrogen [Mass/volume] in Serum or PlasmaOrdered By: Keith Oseguera on 12-27-2022 Urea nitrogen [Mass/Vol] 11 mg/dL 9-23 [facility] Urine clarity by refractomet ry automatedOrdered By: Keith Oseguera on 12-27-2022 Clarity Refractometry automated (U) [facility] Urine glucose measurement by automated test strip (mass/volume)Ordered By: Keith Oseguera on 12-27-2022 Glucose Auto test strip (U) [Mass/Vol] Normal mg/dL Normal [facility] Urine hemoglobin detection b y automated test stripOrdered By: Keith Oseguera on 12-27-2022 Hemoglobin Auto test strip Ql (U) Negative Negative [facility] Urine leukocyte esterase det ection by automated test stripOrdered By: Keith Oseguera on 12-27-2022 Leukocyte esterase Auto test strip Ql (U) Negative Negative [facility] Urobilinogen Auto test strip (U) [Mass/Vol]Ordered By: Keith Oseguera on 12-27-2022 Urobilinogen (U) [Mass/Vol] Normal mg/dL Normal [facility] WBC Auto (Bld) [#/Vol]Ordere d By: Keith Oseguera on 12-27-2022 WBC (Bld) [#/Vol] 13.7 10*3/uL 3.8-11.6 [facility] pH Auto test strip (U)Ordere d By: Keith Oseguera on 12-27-2022 pH (U) 5.5 [pH] 5.0-9.0 [facility] Basophils Auto (Bld) [#/Vol] Ordered By: Nasir Garcia on 12-05-2022 Basophils (Bld) [#/Vol] 0.2 10*3/uL 0.0-0.2 [facility] Basophils/100 WBC Auto (Bld) Ordered By: Nasir Garcia on 12-05-2022 Basophils/100 WBC (Bld) 1.1 % . [facility] Bilirubin Auto test strip Ql (U)Ordered By: Nasir Garcia on 12-05-2022 Bilirubin Ql (U) Negative Negative [facility] Body fluid albumin measureme nt (mass/volume)Ordered By: Nasir Garcia on 12-05-2022 Albumin (Body fld) [Mass/Vol] 3.7 g/dL 3.2-5.5 [facility] Creatinine and Glomerular fi ltration rate.predicted panel (S/P/Bld)Ordered By: Nasir Garcia on 12-05-2022 Creatinine [Mass/Vol] 0.70 mg/dL 0.44-1.03 [facility] Eosinophils Auto (Bld) [#/Vo l]Ordered By: Nasir Garcia on 12-05-2022 Eosinophils (Bld) [#/Vol] 0.2 10*3/uL 0.0-0.45 [facility] Eosinophils/100 WBC Auto (Bl d)Ordered By: Nasir Garcia on 12-05-2022 Eosinophils/100 WBC (Bld) 1.2 % . [facility] Erythrocyte distribution wid th Auto (RBC) [Ratio]Ordered By: Nasir Garcia on 12-05-2022 Erythrocyte distribution width (RBC) [Ratio] 22.5 % 11.9-15.3 [facility] Estimated glomerular filtrat ion rate (GFR) non- AmericanOrdered By: Nasir Garcia on 12-05-2022 GFR/1.73 sq M.predicted among non-blacks MDRD (S/P/Bld) [Vol rate/Area] > 60 mL/Min [facility] Globulin Calc (S) [Mass/Vol] Ordered By: Nasir Garcia on 12-05-2022 Globulin (S) [Mass/Vol] 3.0 g/dL [facility] HCG ( test) IA.rapi d Ql (U)Ordered By: Nasir Garcia on 12-05-2022 HCG ( test) Ql (U) Negative [facility] Hematocrit Auto (Bld) [Volum e fraction]Ordered By: Nasir Garcia on 12-05-2022 Hematocrit (Bld) [Volume fraction] 40.2 % 34.0-46.4 [facility] Hemoglobin [Mass/volume] in BloodOrdered By: Nasir Garcia on 12-05-2022 Hemoglobin (Bld) [Mass/Vol] 13.0 g/dL 11.8-15.4 [facility] Ketones Auto test strip (U) [Mass/Vol]Ordered By: Nasir Garcia on 12-05-2022 Ketones (U) [Mass/Vol] Negative Negative [facility] Laboratory - Chemistry and C hemistry - challengeOrdered By: Nasir Garcia on 12-05-2022 Lipase [Catalytic activity/Vol] 32.0 U/L 22-51 [facility] Leukocytes [#/volume] correc taurus for nucleated erythrocytes in Blood by Automated counOrdered By: Nasir Garcia on 12-05-2022 WBC corrected for nucl RBC Auto (Bld) [#/Vol] 13.9 10*3/uL 3.8-11.6 [facility] Lymphocytes Auto (Bld) [#/Vo l]Ordered By: Nasir Garcia on 12-05-2022 Lymphocytes (Bld) [#/Vol] 3.5 10*3/uL 1.00-4.8 [facility] Lymphocytes/100 WBC Auto (Bl d)Ordered By: Nasir Garcia on 12-05-2022 Lymphocytes/100 WBC (Bld) 25.0 % . [facility] MCH Auto (RBC) [Entitic mass ]Ordered By: Nasir Garcia on 12-05-2022 MCH (RBC) [Entitic mass] 24.2 pg 24.7-34.3 [facility] MCHC Auto (RBC) [Mass/Vol]Or dered By: Nasir Garcia on 12-05-2022 MCHC (RBC) [Mass/Vol] 32.4 g/dL 32.0-35.0 [facility] MCV Auto (RBC) [Entitic vol] Ordered By: Nasir Garcia on 12-05-2022 MCV (RBC) [Entitic vol] 74.8 fL 80-100 [facility] Monocyte distribution width [Entitic volume] in Blood by AutomatedOrdered By: Nasir Garcia on 12-05-2022 Monocyte distribution width Auto (Bld) [Entitic vol] 19.65 % 0.00-20.00 [facility] Monocytes Auto (Bld) [#/Vol] Ordered By: Nasir Garcia on 12-05-2022 Monocytes (Bld) [#/Vol] 0.8 10*3/uL 0.0-0.8 [facility] Monocytes/100 WBC Auto (Bld) Ordered By: Nasir Garcia on 12-05-2022 Monocytes/100 WBC (Bld) 5.4 % . [facility] Neutrophils Auto (Bld) [#/Vo l]Ordered By: Nasir Garcia on 12-05-2022 Neutrophils (Bld) [#/Vol] 9.3 10*3/uL 1.8-7.7 [facility] Neutrophils/100 WBC Auto (Bl d)Ordered By: Nasir Garcia on 12-05-2022 Neutrophils/100 WBC (Bld) 67.3 % . [facility] No Panel InformationOrdered By: Nasir Garcia on 12-05-2022 Estimated GFR () > 60 mL/Min [facility] Comment on above: GFR estimated refere nce range: According to KDOQI guidelines, <60 ml/min/1.73m2 is sufficient to diagnose a patient with chronic kidney disease. Pharmacy Creatinine Clearance (Chem 138.72 [facility] Nucleated erythrocytes [Pres ence] in Blood by Automated countOrdered By: Nasir Garcia on 12-05-2022 Nucleated RBC Auto Ql (Bld) 0.2 /100{WBC} 0-0.5 [facility] Platelet mean volume Auto (B ld) [Entitic vol]Ordered By: Nasir Garcia on 12-05-2022 Platelet mean volume (Bld) [Entitic vol] 9.7 fL 6.3-10.7 [facility] Platelets Auto (Bld) [#/Vol] Ordered By: Nasir Garcia on 12-05-2022 Platelets (Bld) [#/Vol] 283 10*3/uL 150-450 [facility] Protein Auto test strip (U) [Mass/Vol]Ordered By: Nasir Garcia on 12-05-2022 Protein (U) [Mass/Vol] Negative Negative Fi [facility] Protein [Mass/volume] in Ser um or PlasmaOrdered By: Nasir Garcia on 12-05-2022 Protein [Mass/Vol] 6.7 g/dL 6.1-7.9 [facility] RBC Auto (Bld) [#/Vol]Ordere d By: Nasir Garcia on 12-05-2022 RBC (Bld) [#/Vol] 5.38 10*6/uL 3.60-5.00 [facility] Serum or plasma alanine matias otransferase measurement without P-5'-P (enzymatic activiOrdered By: Nasir Garcia on 12-05-2022 ALT No additional P-5'-P [Catalytic activity/Vol] 20 U/L 10-60 [facility] Serum or plasma albumin/glob ulin mass ratioOrdered By: Nasir Garcia on 12-05-2022 Albumin/Globulin [Mass ratio] 1.2 {ratio} [facility] Serum or plasma alkaline vishal sphatase measurement (enzymatic activity/volume)Ordered By: Nasir Garcia on 12-05-2022 ALP [Catalytic activity/Vol] 102 U/L 32-92 [facility] Serum or plasma anion gap de terminationOrdered By: Nasir Garcia on 12-05-2022 Anion gap [Moles/Vol] 13.8 mmol/L 6.0-15.0 [facility] Serum or plasma aspartate am inotransferase measurement (enzymatic activity/volume)Ordered By: Nasir Garcia on 12-05-2022 AST [Catalytic activity/Vol] 22 U/L 10-42 [facility] Serum or plasma calcium lauren urement (mass/volume)Ordered By: Nasir Garcia on 12-05-2022 Calcium [Mass/Vol] 8.9 mg/dL 8.2-10.2 [facility] Serum or plasma chloride rosaline surement (moles/volume)Ordered By: Nasir Garcia on 12-05-2022 Chloride [Moles/Vol] 102 mmol/L 95-114 [facility] Serum or plasma glucose lauren urement (mass/volume)Ordered By: Nasir Garcia on 12-05-2022 Glucose [Mass/Vol] 123 mg/dL 70-100 [facility] Comment on above: ADA recommended refe rence rangeRandom Glucose Reference Range is dependent on time and content of last meal. Glucose of more than 200 mg/dL in a nonstressed, ambulatory subject supports the diagnosis of Diabetes Mellitus. Serum or plasma potassium me asurement (moles/volume)Ordered By: Nasir Garcia on 12-05-2022 Potassium [Moles/Vol] 4.4 mmol/L 3.5-5.1 [facility] Serum or plasma sodium measu rement (moles/volume)Ordered By: Nasir Garcia on 12-05-2022 Sodium [Moles/Vol] 137 mmol/L 136-146 [facility] Serum or plasma total biliru bin measurement (mass/volume)Ordered By: Nasir Garcia on 12-05-2022 Bilirubin [Mass/Vol] 0.3 mg/dL 0.3-1.2 [facility] Serum or plasma total carbon dioxide measurement (moles/volume)Ordered By: Nasir Garcia on 12-05-2022 CO2 [Moles/Vol] 25.6 mmol/L 22.0-30.0 [facility] Serum or plasma urea nitroge n measurement (mass/volume)Ordered By: Nasir Garcia on 12-05-2022 Urea nitrogen [Mass/Vol] 17 mg/dL 9- [facility] Urine appearanceOrdered By: Nasir Garcia on 12-05-2022 Appearance (U) [facility] Urine colorOrdered By: Nasir Garcia on 12-05-2022 Color (U) Yellow Yellow [facility] Urine glucose measurement by automated test strip (mass/volume)Ordered By: Nasir Garcia on 12-05-2022 Glucose Auto test strip (U) [Mass/Vol] Normal mg/dL Normal [facility] Urine hemoglobin detection b y automated test stripOrdered By: Nasir Garcia on 12-05-2022 Hemoglobin Auto test strip Ql (U) Negative Negative [facility] Urine leukocyte esterase det ection by automated test stripOrdered By: Nasir Garcia on 12-05-2022 Leukocyte esterase Auto test strip Ql (U) Negative Negative [facility] Urine nitrite detection by a utomated test stripOrdered By: Nasir Garcia on 12-05-2022 Nitrite Auto test strip Ql (U) Negative Negative [facility] Urobilinogen Auto test strip (U) [Mass/Vol]Ordered By: Nasir Garcia on 12-05-2022 Urobilinogen (U) [Mass/Vol] Normal mg/dL Normal [facility] WBC Auto (Bld) [#/Vol]Ordere d By: Nasir Garcia on 12-05-2022 WBC (Bld) [#/Vol] 13.9 10*3/uL 3.8-11.6 [facility] pH Auto test strip (U)Ordere d By: Nasir Garcia on 12-05-2022 pH (U) 1.025 [pH] 1.001-1.03 0 [facility] pH (U) 6.5 [pH] 5.0-9.0 [facility] Anisocytosis LM Ql (Bld)Orde red By: Renato Kumar on 09-07-2022 Anisocytosis Ql (Bld) Marked [facility] Basophils Auto (Bld) [#/Vol] Ordered By: Renato Kumar on 09-07-2022 Basophils (Bld) [#/Vol] 0.2 10*3/uL 0.0-0.2 [facility] Basophils/100 WBC Auto (Bld) Ordered By: Renato Kumar on 09-07-2022 Basophils/100 WBC (Bld) 1.0 % . [facility] Creatine kinase [Enzymatic a ctivity/volume] in Serum or PlasmaOrdered By: Renato Kumar on 09-07-2022 CK [Catalytic activity/Vol] 72 U/L 22-269 [facility] Creatinine and Glomerular fi ltration rate.predicted panel (S/P/Bld)Ordered By: Renato Kumar on 09-07-2022 Creatinine [Mass/Vol] 0.52 mg/dL 0.44-1.03 [facility] Eosinophils Auto (Bld) [#/Vo l]Ordered By: Renato Kumar on 09-07-2022 Eosinophils (Bld) [#/Vol] 0.1 10*3/uL 0.0-0.45 [facility] Eosinophils/100 WBC Auto (Bl d)Ordered By: Renato Kumar on 09-07-2022 Eosinophils/100 WBC (Bld) 0.8 % . [facility] Erythrocyte distribution wid th Auto (RBC) [Ratio]Ordered By: Renato Kumar on 09-07-2022 Erythrocyte distribution width (RBC) [Ratio] 20.7 % 11.9-15.3 [facility] Estimated glomerular filtrat ion rate (GFR) non- AmericanOrdered By: Renato Kumar on 09-07-2022 GFR/1.73 sq M.predicted among non-blacks MDRD (S/P/Bld) [Vol rate/Area] > 60 mL/Min [facility] Hematocrit Auto (Bld) [Volum e fraction]Ordered By: Renato Kumar on 09-07-2022 Hematocrit (Bld) [Volume fraction] 37.8 % 34.0-46.4 [facility] Hemoglobin [Mass/volume] in BloodOrdered By: Renato Kumar on 09-07-2022 Hemoglobin (Bld) [Mass/Vol] 11.4 g/dL 11.8-15.4 [facility] Hypochromia LM Ql (Bld)Order ed By: Renato Kumar on 09-07-2022 Hypochromia Ql (Bld) Moderate [facility] Laboratory - Hematology and Cell countsOrdered By: Renato Kumar on 09-07-2022 Nucleated RBC/100 WBC (Bld) [Ratio] 0.0 % 0-0.5 [facility] Leukocytes [#/volume] in Blo od by Automated countOrdered By: Renato Kumar on 09-07-2022 WBC (Bld) [#/Vol] 15.2 10*3/uL 4.5-11.0 [facility] Lymphocytes Auto (Bld) [#/Vo l]Ordered By: Renato Kumar on 09-07-2022 Lymphocytes (Bld) [#/Vol] 3.2 10*3/uL 1.00-4.8 [facility] Lymphocytes/100 WBC Auto (Bl d)Ordered By: Renato Kumar on 09-07-2022 Lymphocytes/100 WBC (Bld) 20.8 % . [facility] MCH Auto (RBC) [Entitic mass ]Ordered By: Renato Kumar on 09-07-2022 MCH (RBC) [Entitic mass] 20.2 pg 24.7-34.3 [facility] MCHC Auto (RBC) [Mass/Vol]Or dered By: Renato Kumar on 09-07-2022 MCHC (RBC) [Mass/Vol] 30.1 g/dL 32.0-35.0 [facility] MCV Auto (RBC) [Entitic vol] Ordered By: Renato Kumar on 09-07-2022 MCV (RBC) [Entitic vol] 67.0 fL 80-100 [facility] Macrocytes LM Ql (Bld)Ordere d By: Renato Kumar on 09-07-2022 Macrocytes Ql (Bld) Slight [facility] Microcytes LM Ql (Bld)Ordere d By: Renato Kumar on 09-07-2022 Microcytes Ql (Bld) Moderate [facility] Monocytes Auto (Bld) [#/Vol] Ordered By: Renato Kumar on 09-07-2022 Monocytes (Bld) [#/Vol] 0.9 10*3/uL 0.0-0.8 [facility] Monocytes/100 WBC Auto (Bld) Ordered By: Renato Kumar on 09-07-2022 Monocytes/100 WBC (Bld) 5.9 % . [facility] Neutrophils Auto (Bld) [#/Vo l]Ordered By: Renato Kumar on 09-07-2022 Neutrophils (Bld) [#/Vol] 10.9 10*3/uL 1.8-7.7 [facility] Neutrophils/100 WBC Auto (Bl d)Ordered By: Renato Kumar on 09-07-2022 Neutrophils/100 WBC (Bld) 71.5 % . [facility] No Panel InformationOrdered By: Renato Kumar on 09-07-2022 Estimated GFR () > 60 mL/Min [facility] Comment on above: GFR estimated refere nce range: According to KDOQI guidelines, <60 ml/min/1.73m2 is sufficient to diagnose a patient with chronic kidney disease. Pharmacy Creatinine Clearance (Chem 182.66 [facility] Platelet adequacy [Presence] in Blood by Light microscopyOrdered By: Renato Kumar on 09-07-2022 Platelets LM Ql (Bld) Normal Normal [facility] Platelet mean volume Auto (B ld) [Entitic vol]Ordered By: Renato Kumar on 09-07-2022 Platelet mean volume (Bld) [Entitic vol] 9.1 fL 6.3-10.7 [facility] Platelet morphology finding [Identifier] in BloodOrdered By: Renato Kumar on 09-07-2022 Platelet morphology finding Nom (Bld) Normal Normal [facility] Platelets Auto (Bld) [#/Vol] Ordered By: Renato Kumar on 09-07-2022 Platelets (Bld) [#/Vol] 275 10*3/uL 150-450 [facility] RBC Auto (Bld) [#/Vol]Ordere d By: Renato Kumar on 09-07-2022 RBC (Bld) [#/Vol] 5.64 10*6/uL 3.60-5.00 [facility] RBC morphologyOrdered By: Rachael Kumar on 09-07-2022 RBC morphology finding Nom (Bld) N/A [facility] Red blood cell stomatocyte d etectionOrdered By: Renato Kumar on 09-07-2022 Stomatocytes LM Ql (Bld) Slight [facility] Serum or plasma anion gap de terminationOrdered By: Renato Kumar on 09-07-2022 Anion gap [Moles/Vol] 16.4 mmol/L 6.0-15.0 [facility] Serum or plasma calcium lauren urement (mass/volume)Ordered By: Renato Kumar on 09-07-2022 Calcium [Mass/Vol] 9.2 mg/dL 8.2-10.2 [facility] Serum or plasma chloride rosaline surement (moles/volume)Ordered By: Renato Kumar on 09-07-2022 Chloride [Moles/Vol] 103 mmol/L 95-114 [facility] Serum or plasma creatine kin ase MB (CKMB)/total creatine kinase (CK) ratio by calculaOrdered By: Renato Kumar on 09-07-2022 CK.MB Calc [Catalytic fraction] 1.5 % 0.00-2.50 [facility] Serum or plasma creatine kin ase MB measurement (mass/volume)Ordered By: Renato Kumar on 09-07-2022 CK.MB [Mass/Vol] 1.1 ng/mL 0.6-6.3 [facility] Serum or plasma glucose lauren urement (mass/volume)Ordered By: Renato Kumar on 09-07-2022 Glucose [Mass/Vol] 100 mg/dL 70-100 [facility] Comment on above: ADA recommended refe rence rangeRandom Glucose Reference Range is dependent on time and content of last meal. Glucose of more than 200 mg/dL in a nonstressed, ambulatory subject supports the diagnosis of Diabetes Mellitus. Serum or plasma potassium me asurement (moles/volume)Ordered By: Renato Kumar on 09-07-2022 Potassium [Moles/Vol] 4.0 mmol/L 3.5-5.1 [facility] Serum or plasma sodium measu rement (moles/volume)Ordered By: Renato Kumar on 09-07-2022 Sodium [Moles/Vol] 139 mmol/L 136-146 [facility] Serum or plasma total carbon dioxide measurement (moles/volume)Ordered By: Renato Kumar on 09-07-2022 CO2 [Moles/Vol] 23.6 mmol/L 22.0-30.0 [facility] Serum or plasma urea nitroge n measurement (mass/volume)Ordered By: Renato Kumar on 09-07-2022 Urea nitrogen [Mass/Vol] 14 mg/dL 9- [facility] Troponin I.cardiac [Mass/vol ume] in Serum or Plasma by High sensitivity methodOrdered By: Renato Kumar on 09-07-2022 Troponin I.cardiac High sensitivity method [Mass/Vol] 5 pg/mL 0-15 [facility] HCG ( test) IA.rapi d Ql (U)Ordered By: Piero Veronica on 07-09-2022 HCG ( test) Ql (U) Negative [facility] Basophils Auto (Bld) [#/Vol] Ordered By: Stephanie Mcmahan on 07-05-2022 Basophils (Bld) [#/Vol] 0.1 10*3/uL 0.0-0.2 [facility] Basophils/100 WBC Auto (Bld) Ordered By: Stephanie Mcmahan on 07-05-2022 Basophils/100 WBC (Bld) 0.5 % . [facility] Blood hemoglobin measurement (mass/volume)Ordered By: Stephanie Mcmahan on 07-05-2022 Hemoglobin (Bld) [Mass/Vol] 10.3 g/dL 11.8-15.4 [facility] Blood leukocytes automated c ount (number/volume)Ordered By: Stephanie Mcmahan on 07-05-2022 WBC (Bld) [#/Vol] 13.2 10*3/uL 4.5-11.0 [facility] Eosinophils Auto (Bld) [#/Vo l]Ordered By: Stephanie Mcmahan on 07-05-2022 Eosinophils (Bld) [#/Vol] 0.1 10*3/uL 0.0-0.45 [facility] Eosinophils/100 WBC Auto (Bl d)Ordered By: Stephanie Mcmahan on 07-05-2022 Eosinophils/100 WBC (Bld) 0.8 % . [facility] Erythrocyte distribution wid th Auto (RBC) [Ratio]Ordered By: Stephanie Mcmahan on 07-05-2022 Erythrocyte distribution width (RBC) [Ratio] 17.0 % 11.9-15.3 [facility] Hematocrit Auto (Bld) [Volum e fraction]Ordered By: Stephanie Mcmahan on 07-05-2022 Hematocrit (Bld) [Volume fraction] 33.6 % 34.0-46.4 [facility] Laboratory - Hematology and Cell countsOrdered By: Stephanie Mcmahan on 07-05-2022 Nucleated RBC/100 WBC (Bld) [Ratio] 0.0 % 0-0.5 [facility] Lymphocytes Auto (Bld) [#/Vo l]Ordered By: Stephanie Mcmahan on 07-05-2022 Lymphocytes (Bld) [#/Vol] 2.4 10*3/uL 1.00-4.8 [facility] Lymphocytes/100 WBC Auto (Bl d)Ordered By: Stephanie Mcmahan on 07-05-2022 Lymphocytes/100 WBC (Bld) 18.5 % . [facility] MCH Auto (RBC) [Entitic mass ]Ordered By: Stephanie Mcmahan on 07-05-2022 MCH (RBC) [Entitic mass] 21.8 pg 24.7-34.3 [facility] MCHC Auto (RBC) [Mass/Vol]Or dered By: Stephanie Mcmahan on 07-05-2022 MCHC (RBC) [Mass/Vol] 30.7 g/dL 32.0-35.0 [facility] MCV Auto (RBC) [Entitic vol] Ordered By: Stephanie Mcmahan on 07-05-2022 MCV (RBC) [Entitic vol] 71.1 fL 80-100 [facility] Monocytes Auto (Bld) [#/Vol] Ordered By: Stephanie Mcmahan on 07-05-2022 Monocytes (Bld) [#/Vol] 0.6 10*3/uL 0.0-0.8 [facility] Monocytes/100 WBC Auto (Bld) Ordered By: Stephanie Mcmahan on 07-05-2022 Monocytes/100 WBC (Bld) 4.4 % . [facility] Neutrophils Auto (Bld) [#/Vo l]Ordered By: Stephanie Mcmahan on 07-05-2022 Neutrophils (Bld) [#/Vol] 10.0 10*3/uL 1.8-7.7 [facility] Neutrophils/100 WBC Auto (Bl d)Ordered By: Stephanie Mcmahan on 07-05-2022 Neutrophils/100 WBC (Bld) 75.8 % . [facility] Platelet mean volume Auto (B ld) [Entitic vol]Ordered By: Stephanie Mcmahan on 07-05-2022 Platelet mean volume (Bld) [Entitic vol] 9.5 fL 6.3-10.7 [facility] Platelets Auto (Bld) [#/Vol] Ordered By: Stephanie Mcmahan on 07-05-2022 Platelets (Bld) [#/Vol] 367 10*3/uL 150-450 [facility] RBC Auto (Bld) [#/Vol]Ordere d By: Stepahnie Mcmahan on 07-05-2022 RBC (Bld) [#/Vol] 4.72 10*6/uL 3.60-5.00 [facility] Automated erythrocytes count in urine sediment (number/area)Ordered By: Jesus Petersen on 06-04-2022 RBC Auto (Urine sed) [#/Area] Innumerable [HPF] 0-4 [facility] Automated leukocytes count i n urine sediment (number/area)Ordered By: Jesus Petersen on 06-04-2022 WBC Auto (Urine sed) [#/Area] 1-2 [HPF] 0-4 [facility] Basophils Auto (Bld) [#/Vol] Ordered By: Jesus Petersen on 06-04-2022 Basophils (Bld) [#/Vol] 0.1 10*3/uL 0.0-0.2 [facility] Basophils/100 WBC Auto (Bld) Ordered By: Jesus Petersen on 06-04-2022 Basophils/100 WBC (Bld) 0.5 % . [facility] Bilirubin Test strip Ql (U)O rdered By: Jesus Petersen on 06-04-2022 Bilirubin Ql (U) Negative Negative [facility] Blood hemoglobin measurement (mass/volume)Ordered By: Jesus Petersen on 06-04-2022 Hemoglobin (Bld) [Mass/Vol] 10.5 g/dL 11.8-15.4 [facility] Blood leukocytes automated c ount (number/volume)Ordered By: Jesus Petersen on 06-04-2022 WBC (Bld) [#/Vol] 14.2 10*3/uL 4.5-11.0 [facility] Color Auto (U)Ordered By: Wai Petersen on 06-04-2022 Color (U) [place] Yellow [facility] Eosinophils Auto (Bld) [#/Vo l]Ordered By: Jesus Petersen on 06-04-2022 Eosinophils (Bld) [#/Vol] 0.1 10*3/uL 0.0-0.45 [facility] Eosinophils/100 WBC Auto (Bl d)Ordered By: Jesus Petersen on 06-04-2022 Eosinophils/100 WBC (Bld) 0.9 % . [facility] Erythrocyte distribution wid th Auto (RBC) [Ratio]Ordered By: Jesus Petersen on 06-04-2022 Erythrocyte distribution width (RBC) [Ratio] 16.3 % 11.9-15.3 [facility] HCG ( test) IA.rapi d Ql (U)Ordered By: Jesus Petersen on 06-04-2022 HCG ( test) Ql (U) Negative [facility] Hematocrit Auto (Bld) [Volum e fraction]Ordered By: Jesus Petersen on 06-04-2022 Hematocrit (Bld) [Volume fraction] 33.3 % 34.0-46.4 [facility] Ketones Auto test strip (U) [Mass/Vol]Ordered By: Jesus Petersen on 06-04-2022 Ketones (U) [Mass/Vol] Negative [facility] - Hematology and Cell countsOrdered By: Jesus Petersen on 06-04-2022 Nucleated RBC/100 WBC (Bld) [Ratio] 0.0 % 0-0.5 [facility] Laboratory - UrinalysisOrder ed By: Jesus Petersen on 06-04-2022 Hyaline casts LM Ql (Urine sed) 0-8 [LPF] 0-8 [facility] Lymphocytes Auto (Bld) [#/Vo l]Ordered By: Jesus Petersen on 06-04-2022 Lymphocytes (Bld) [#/Vol] 3.1 10*3/uL 1.00-4.8 [facility] Lymphocytes/100 WBC Auto (Bl d)Ordered By: Jesus Petersen on 06-04-2022 Lymphocytes/100 WBC (Bld) 21.9 % . [facility] MCH Auto (RBC) [Entitic mass ]Ordered By: Jesus Petersen on 06-04-2022 MCH (RBC) [Entitic mass] 23.9 pg 24.7-34.3 [facility] MCHC Auto (RBC) [Mass/Vol]Or dered By: Jesus Petersen on 06-04-2022 MCHC (RBC) [Mass/Vol] 31.4 g/dL 32.0-35.0 [facility] MCV Auto (RBC) [Entitic vol] Ordered By: Jesus Petersen on 06-04-2022 MCV (RBC) [Entitic vol] 76.2 fL 80-100 [facility] Monocytes Auto (Bld) [#/Vol] Ordered By: Jesus Petersen on 06-04-2022 Monocytes (Bld) [#/Vol] 0.8 10*3/uL 0.0-0.8 [facility] Monocytes/100 WBC Auto (Bld) Ordered By: Jesus Petersen on 06-04-2022 Monocytes/100 WBC (Bld) 5.6 % . [facility] Neutrophils Auto (Bld) [#/Vo l]Ordered By: Jesus Petersen on 06-04-2022 Neutrophils (Bld) [#/Vol] 10.1 10*3/uL 1.8-7.7 [facility] Neutrophils/100 WBC Auto (Bl d)Ordered By: Jesus Petersen on 06-04-2022 Neutrophils/100 WBC (Bld) 71.1 % . [facility] Nitrite Test strip Ql (U)Ord ered By: Jesus Petersen on 06-04-2022 Nitrite Ql (U) Negative Negative [facility] Platelet mean volume Auto (B ld) [Entitic vol]Ordered By: Jesus Petersen on 06-04-2022 Platelet mean volume (Bld) [Entitic vol] 9.8 fL 6.3-10.7 [facility] Platelets Auto (Bld) [#/Vol] Ordered By: Jesus Petersen on 06-04-2022 Platelets (Bld) [#/Vol] 321 10*3/uL 150-450 [facility] Protein Auto test strip (U) [Mass/Vol]Ordered By: Jesus Petersen on 06-04-2022 Protein (U) [Mass/Vol] Negative Negative [facility] RBC Auto (Bld) [#/Vol]Ordere d By: Jesus Petersen on 06-04-2022 RBC (Bld) [#/Vol] 4.37 10*6/uL 3.60-5.00 [facility] Specific gravity Auto test s trip (U) [Rel density]Ordered By: Jesus Petersen on 06-04-2022 Specific gravity (U) [Rel density] 1.008 1.001-1.03 0 [facility] Squamous epithelial cells de tection in urine sediment by light microscopyOrdered By: Jesus Petersen on 06-04-2022 Epithelial cells.squamous LM Ql (Urine sed) 1-2 [HPF] 0-2 [facility] Urine bacteria detection by automated methodOrdered By: Jesus Petersen on 06-04-2022 Bacteria Auto Ql (U) None seen None Seen [facility] Urine clarity by refractomet ry automatedOrdered By: Jesus Petersen on 06-04-2022 Clarity Refractometry automated (U) Clear Clear [facility] Urine glucose measurement by automated test strip (mass/volume)Ordered By: Jesus Petersen on 06-04-2022 Glucose Auto test strip (U) [Mass/Vol] Normal mg/dL Normal [facility] Urine hemoglobin detection b y automated test stripOrdered By: Jesus Petersen on 06-04-2022 Hemoglobin Auto test strip Ql (U) 3+ Negative [facility] Urine leukocyte esterase det ection by automated test stripOrdered By: Jesus Petersen on 06-04-2022 Leukocyte esterase Auto test strip Ql (U) Negative Negative [facility] Urobilinogen Auto test strip (U) [Mass/Vol]Ordered By: Jesus Petersen on 06-04-2022 Urobilinogen (U) [Mass/Vol] Normal mg/dL Normal [facility] pH Auto test strip (U)Ordere d By: Jesus Petersen on 06-04-2022 pH (U) 6.0 [pH] 5.0-9.0 [facility] Basophils Auto (Bld) [#/Vol] Ordered By: Stephanie Mcmahan on 05-30-2022 Basophils (Bld) [#/Vol] 0.1 10*3/uL 0.0-0.2 [facility] Basophils/100 WBC Auto (Bld) Ordered By: Stephanie Mcmahan on 05-30-2022 Basophils/100 WBC (Bld) 0.8 % . [facility] Blood anisocytosis detection Ordered By: Stephanie Mcmahan on 05-30-2022 Anisocytosis Ql (Bld) [facility] Blood hemoglobin measurement (mass/volume)Ordered By: Stephanie Mcmahan on 05-30-2022 Hemoglobin (Bld) [Mass/Vol] 10.5 g/dL 11.8-15.4 [facility] Blood leukocytes automated c ount (number/volume)Ordered By: Stephanie Mcmahan on 05-30-2022 WBC (Bld) [#/Vol] 8.1 10*3/uL 4.5-11.0 [facility] Blood polychromasia detectio n by light microscopyOrdered By: Stephanie Mcmahan on 05-30-2022 Polychromasia LM Ql (Bld) Slight [facility] COVID-19 Positive/NegativeOr dered By: Jah Almonte on 05-30-2022 SARS-CoV-2 (COVID-19) N gene JUDIT+probe Ql (Resp) Positive Negative [facility] Comment on above: Positive results yonathan l only be called to Providers for the following groups of patients: Pre-Surgical Testing, Emergency Room, and Inpatients. Results called at 1029 on 05/30/22 Testing for SARS-CoV-2 by RT-PCR This test was developed and its performance characteristics determined by [employer] ([employer]) and validated at the [facility]. This test has not been FDA cleared or approved. This test has been authorized by FDA under an Emergency Use Authorization (EUA). This test has been validated in accordance with the FDA's Guidance Document (Policy for Diagnostics Testing in Laboratories Certified to Perform High Complexity Testing under CLIA prior to Emergency Use Authorization for Coronavirus Disease-2019 during the Public Health Emergency) issued on January 28, 2020. This test is only authorized for the duration of time the declaration that circumstances exist justifying the authorization of the emergency use of in vitro diagnostic tests for detection of SARS-CoV-2 virus and/or diagnosis of COVID-19 infection under section 564(b)(1) of the Act, 21 U.S.C. 360bbb-3(b)(1), unless the authorization is terminated or revoked sooner. Positive results yonathan l only be called to Providers for the following groups of patients: Pre-Surgical Testing, Emergency Room, and Inpatients.Results calledat 1029 on 05/30/22 Testing for SARS-CoV-2 by RT-PCRThis test was developed and its performance characteristics determined by [employer] ([employer]) and validated at the [facility]. This test has not been FDA cleared or approved. This test has been authorized by FDA under an Emergency Use Authorization (EUA). This test has been validated in accordance with the FDA's Guidance Document (Policy for Diagnostics Testing in Laboratories Certified to Perform High Complexity Testing under CLIA prior to Emergency Use Authorization for Coronavirus Disease-2019 during the Public Health Emergency) issued on January 28, 2020. This test is only authorized for the duration of time the declaration that circumstances exist justifying the authorization of the emergency use of in vitro diagnostic tests for detection of SARS-CoV-2 virus and/or diagnosis of COVID-19 infection under section 564(b)(1) of the Act, 21 U.S.C. 360bbb-3(b)(1), unless the authorization is terminated or revoked sooner. COVID-19 SOFIAOrdered By: Cali Almonte on 05-30-2022 SARS-CoV+SARS-CoV-2 (COVID-19) Ag IA.rapid Ql (Resp) Positive Negative [facility] Comment on above: This is a duplicate Laura SARS Antigen (JESSICA) result to be used for statistical tracking purpose only. Eosinophils Auto (Bld) [#/Vo l]Ordered By: Stephanie Mcmahan on 05-30-2022 Eosinophils (Bld) [#/Vol] 0.1 10*3/uL 0.0-0.45 [facility] Eosinophils/100 WBC Auto (Bl d)Ordered By: Stephanie Mcmahan on 05-30-2022 Eosinophils/100 WBC (Bld) 1.5 % . [facility] Erythrocyte distribution wid th Auto (RBC) [Ratio]Ordered By: Stephanie Mcmahan on 05-30-2022 Erythrocyte distribution width (RBC) [Ratio] 16.1 % 11.9-15.3 [facility] Hematocrit Auto (Bld) [Volum e fraction]Ordered By: Stephanie Mcmahan on 05-30-2022 Hematocrit (Bld) [Volume fraction] 33.6 % 34.0-46.4 [facility] Hypochromia detectionOrdered By: Stephanie Mcmahan on 05-30-2022 Hypochromia Ql (Bld) Moderate [facility] Laboratory - Hematology and Cell countsOrdered By: Stephanie Mcmahan on 05-30-2022 Nucleated RBC/100 WBC (Bld) [Ratio] 0.0 % 0-0.5 [facility] Lymphocytes Auto (Bld) [#/Vo l]Ordered By: Stephanie Mcmahan on 05-30-2022 Lymphocytes (Bld) [#/Vol] 2.1 10*3/uL 1.00-4.8 [facility] Lymphocytes/100 WBC Auto (Bl d)Ordered By: Stephanie Mcmahan on 05-30-2022 Lymphocytes/100 WBC (Bld) 26.5 % . [facility] MCH Auto (RBC) [Entitic mass ]Ordered By: Stephanie Mcmahan on 05-30-2022 MCH (RBC) [Entitic mass] 24.0 pg 24.7-34.3 [facility] MCHC Auto (RBC) [Mass/Vol]Or dered By: Stephanie Mcmahan on 05-30-2022 MCHC (RBC) [Mass/Vol] 31.1 g/dL 32.0-35.0 [facility] MCV Auto (RBC) [Entitic vol] Ordered By: Stephanie Mcmahan on 05-30-2022 MCV (RBC) [Entitic vol] 77.0 fL 80-100 [facility] Monocytes Auto (Bld) [#/Vol] Ordered By: Stephanie Mcmahan on 05-30-2022 Monocytes (Bld) [#/Vol] 0.6 10*3/uL 0.0-0.8 [facility] Monocytes/100 WBC Auto (Bld) Ordered By: Stephanie Mcmahan on 05-30-2022 Monocytes/100 WBC (Bld) 7.2 % . [facility] Neutrophils Auto (Bld) [#/Vo l]Ordered By: Stephanie Mcmahan on 05-30-2022 Neutrophils (Bld) [#/Vol] 5.2 10*3/uL 1.8-7.7 [facility] Neutrophils/100 WBC Auto (Bl d)Ordered By: Stephanie Mcmahan on 05-30-2022 Neutrophils/100 WBC (Bld) 64.0 % . [facility] No Panel InformationOrdered By: Stephanie Mcmahan on 05-30-2022 Large Platelets Moderate [facility] Platelet Estimate Normal Normal [facility] Platelet Morphology Comment N/A [facility] No Panel InformationOrdered By: Jah Almonte on 05-30-2022 SARS Antigen (LFIA) [facility] Platelet mean volume Auto (B ld) [Entitic vol]Ordered By: Stephanie Mcmahan on 05-30-2022 Platelet mean volume (Bld) [Entitic vol] 9.6 fL 6.3-10.7 [facility] Platelets Auto (Bld) [#/Vol] Ordered By: Stephanie Mcmahan on 05-30-2022 Platelets (Bld) [#/Vol] 235 10*3/uL 150-450 [facility] RBC Auto (Bld) [#/Vol]Ordere d By: Stephanie Mcmahan on 05-30-2022 RBC (Bld) [#/Vol] 4.36 10*6/uL 3.60-5.00 [facility] RBC morphologyOrdered By: Karin Mcmahan on 05-30-2022 RBC morphology finding Nom (Bld) N/A [facility] .Auto Diff 1on 05-29-2022 Auto [place] % 5 % Normal -12 [facility] Comment on above: Performed By: #### 1 [id number], [id number], 3416426, 8160378, [id number], 9817375, 1529390 #### [facility] (DEFAULT) [address] [place] [address] Baso Abs# 0.0 x10 Normal 0.0-0.2 [facility] Comment on above: Performed By: #### 1 [id number], 32198093, 1762354, 6202934, [id number], 7037456, 7225018 #### [facility] (DEFAULT) [address] [place] [address] 00010 Basophils/100 WBC (Bld) 0.1 % Low 0.2-2.0 [facility] Comment on above: Performed By: #### 1 [id number], 85201615, 7477151, 2338992, 8187531951, 9964292, 8808804 #### [facility] (DEFAULT) [address] [place] [address] Eos Abs# 0.1 x10 Normal 0.0-0.4 [facility] Comment on above: Performed By: #### 1 [id number], 28039948, 3270499, 2770235, [id number], 0249551, 8983602 #### [facility] (DEFAULT) [address] [place] [address] Eosinophils/100 WBC (Bld) 0.8 % Low 0.9-4.0 [facility] Comment on above: Performed By: #### 1 [id number], 03225155, 7763270, 2539397, 3054083747, 2790112, 5637043 #### [facility] (DEFAULT) [address] [place] [address] Lymph Abs# 1.6 x10 Normal 1.3-2.9 [facility] Comment on above: Performed By: #### 1 [id number], 36538703, 8692762, 5693488, 4586034956, 1625304, 1878819 #### [facility] (DEFAULT) [address] [place] [address] 89095 Lymphocytes/100 WBC (Bld) 15 % Normal 14-48 [facility] Comment on above: Performed By: #### 1 [id number], 15684587, 4678181, 4550737, 9585583400, 8640019, 5114788 #### [facility] (DEFAULT) [address] [place] [address] [place] Abs# 0.5 x10 Normal 0.0-0.8 [facility] Comment on above: Performed By: #### 1 [id number], 88828954, 7704343, 3600141, 1779429159, 7988809, 9574214 #### [facility] (DEFAULT) [address] [place] [address] Neut Abs# 8.5 x10 Normal 1.5-9.2 [facility] Comment on above: Performed By: #### 1 [id number], 87037726, 5075945, 3419620, 4562301028, 4258644, 8148221 #### [facility] (DEFAULT) [address] [place] [address] Neutrophils/100 WBC (Bld) 80 % Normal 44-88 [facility] Comment on above: Performed By: #### 1 [id number], 15382235, 6815489, 0089036, 3139821545, 3261182, 0690786 #### [facility] (DEFAULT) [address] [place] [address] CBC w/ Auto Diffon 2 Erythrocyte distribution width (RBC) [Ratio] 16.5 % High 11.5-15.0 [facility] Comment on above: Performed By: #### 1 [id number], 31559159, 0513172, 9254321, 8995117504, 7877431, 4811419 #### [facility] (DEFAULT) [address] [place] [address] Hematocrit (Bld) [Volume fraction] 36.0 % Normal 33.7-40.4 [facility] Comment on above: Performed By: #### 1 [id number], 47928207, 6276918, 5861615, 1552246707, 9307453, 0238998 #### [facility] (DEFAULT) [address] [place] [address] Hemoglobin (Bld) [Mass/Vol] 11.2 g/dL Low 11.3-15.9 [facility] Comment on above: Performed By: #### 1 [id number], 51804851, 0365519, 2481298, 6998021605, 8231674, 7717064 #### [facility] (DEFAULT) [address] [place] [address] Instr WBC 10.7 x10 Invalid Interpretation Code [facility] Comment on above: Performed By: #### 1 [id number], 30269456, 7777723, 7851485, 3290495506, 3795176, 1640913 #### [facility] (DEFAULT) [address] [place] [address] 94138 Man Diff? Auto Normal [facility] Comment on above: Performed By: #### 1 [id number], 69248382, 6170674, 9990019, 5315612969, 7560868, 4638876 #### [facility] (DEFAULT) [address] [place] [address] 9[address]61 MCH (RBC) [Entitic mass] 24 pg Normal 24-34 [facility] Comment on above: Performed By: #### 1 [id number], 91067142, 3049557, 7085470, 8737802754, 5135874, 9408517 #### [facility] (DEFAULT) [address] [place] [address]246 MCHC (RBC) [Mass/Vol] 31 g/dL Normal 26-37 [facility] Comment on above: Performed By: #### 1 [id number], 83446106, 0244480, 4571973, 5033859699, 6188547, 8900118 #### [facility] (DEFAULT) [address] [place] [address] 28025 MCV (RBC) [Entitic vol] 78 fL Low 81-100 [facility] Comment on above: Performed By: #### 1 [id number], 35703972, 0153297, 6587436, 3625058505, 3092139, 8428292 #### [facility] (DEFAULT) [address] [place] [address] 56788 Platelet 261 x10 Normal 138-427 [facility] Comment on above: Performed By: #### 1 [id number], 24516950, 4474132, 3501532, 5357900661, 4745121, 6654655 #### [facility] (DEFAULT) [address] [place] [address] Platelet mean volume (Bld) [Entitic vol] 11.9 fL High 6.3-10.2 [facility] Comment on above: Performed By: #### 1 [id number], 28736760, 1712202, 4193702, 3901464532, 8148655, 2330712 #### [facility] (DEFAULT) [address] [place] [address] RBC 4.62 x10 Normal 3.70-5.30 [facility] Comment on above: Performed By: #### 1 [id number], 67450395, 2246873, 6699639, 7707203224, 8447056, 9987699 #### [facility] (DEFAULT) [address] [place] [address] WBC 10.7 x10 High 3.5-10.5 [facility] Comment on above: Performed By: #### 1 [id number], 62782386, 5883801, 6775463, 7024944209, 3622446, 2267061 #### [facility] (DEFAULT) [address] [place] [address] Standardon 05-29-2022 eGFR Non AA >60 Invalid Interpretation Code [facility] Comment on above: Performed By: #### 3 [id number], 57758810, [id number] #### [facility] (DEFAULT) [address] [place] [address] eGFR AA >60 Invalid Interpretation Code [facility] Comment on above: Result Comment: Director Public Policy bhaskar Kidney disease could be indicated at eGFRs of less than 60 ml/min/1.73m2. Kidney Failure is indicated at less than 15 ml/min/1.73m2 Performed By: #### 3 [id number], 08934413, [id number] #### [facility] (DEFAULT) [address] [place] [address] Albumin [Mass/Vol] 4.0 g/dL Normal 3.5-5.0 [facility] Comment on above: Performed By: #### 3 [id number], 13564145, [id number] #### [facility] (DEFAULT) [address] [place] [address] 15815 Albumin/Globulin [Mass ratio] 1.4 {ratio} Normal 1.4-2.6 [facility] Comment on above: Performed By: #### 3 [id number], 81937392, [id number] #### [facility] (DEFAULT) [address] [place] [address] 52882 Alk Phos 91 IU/L Normal 32-91 [facility] Comment on above: Performed By: #### 3 [id number], 88108253, [id number] #### [facility] (DEFAULT) [address] [place] [address] ALT [Catalytic activity/Vol] 18.0 U/L Normal 14.0-54.0 [facility] Comment on above: Performed By: #### 3 [id number], 29649115, [id number] #### [facility] (DEFAULT) [address] [place] [address] Anion gap [Moles/Vol] 13.0 mmol/L Normal 5.0-19.0 [facility] Comment on above: Performed By: #### 3 [id number], 23788330, [id number] #### [facility] (DEFAULT) [address] [place] [address] AST [Catalytic activity/Vol] 22 U/L Normal 15-41 [facility] Comment on above: Performed By: #### 3 [id number], 83281116, [id number] #### [facility] (DEFAULT) [address] [place] [address] 21858 Bili Total 0.3 mg/dL Normal 0.3-1.2 [facility] Comment on above: Performed By: #### 3 07696815, 71747544, [id number] #### [facility] (DEFAULT) [address] [place] [address] 97482 Calcium [Mass/Vol] 8.8 mg/dL Low 8.9-10.3 [facility] Comment on above: Performed By: #### 3 [id number], 66384448, [id number] #### [facility] (DEFAULT) [address] [place] [address] 02544 Chloride [Moles/Vol] 103 mmol/L Normal 101-111 [facility] Comment on above: Performed By: #### 3 [id number], 16944681, [id number] #### [facility] (DEFAULT) [address] [place] [address] 81827 CO2 [Moles/Vol] 24 mmol/L Normal 21-32 [facility] Comment on above: Performed By: #### 3 [id number], 53565457, [id number] #### [facility] (DEFAULT) [address] [place] [address] Creatinine [Mass/Vol] 0.76 mg/dL Normal 0.60-1.30 [facility] Comment on above: Performed By: #### 3 [id number], 36730696, [id number] #### [facility] (DEFAULT) [address] [place] [address] 58805 Globulin (S) [Mass/Vol] 2.9 g/dL Normal 1.5-4.3 [facility] Comment on above: Performed By: #### 3 [id number], 48126666, [id number] #### [facility] (DEFAULT) [address] [place] [address] Glucose [Mass/Vol] 171.0 mg/dL High 74.0-118.0 [facility] Comment on above: Performed By: #### 3 [id number], 29433118, [id number] #### [facility] (DEFAULT) [address] [place] [address] 14799 Osmolality 279 mOsm/L Invalid Interpretation Code [facility] Comment on above: Performed By: #### 3 [id number], 51754183, [id number] #### [facility] (DEFAULT) [address] [place] [address] 64940 Potassium [Moles/Vol] 3.1 mmol/L Low 3.6-5.1 [facility] Comment on above: Performed By: #### 3 [id number], 89851546, [id number] #### [facility] (DEFAULT) [address] [place] [address] 05931 Protein [Mass/Vol] 6.9 g/dL Normal 6.5-8.1 [facility] Comment on above: Performed By: #### 3 [id number], 98323777, [id number] #### [facility] (DEFAULT) [address] [place] [address] 02251 Sodium [Moles/Vol] 137.0 mmol/L Normal 136.0-144 . 0 [facility] Comment on above: Performed By: #### 3 [id number], 28265580, [id number] #### [facility] (DEFAULT) [address] [place] [address] 41706 Urea nitrogen [Mass/Vol] 16 mg/dL Normal 8- [facility] Comment on above: Performed By: #### 3 [id number], 38177657, [id number] #### [facility] (DEFAULT) [address] [place] [address] 88346 Urea nitrogen/Creatinine [Mass ratio] 21.0 mg/mg High 4.6-16.2 [facility] Comment on above: Performed By: #### 3 [id number], 61459395, [id number] #### [facility] (DEFAULT) [address] [place] [address] 77603 ED Clinical Summaryon 2021 ED Clinical Summary [facility] - Emergency Department [address] [place] [address] ED Clinical Summary PERSON INFORMATION Name: NE KEITA Age: 36 Years Sex: FEMALE : 1985 MRN: Acct#: Visit Reason: VAGINAL BLEEDING Arrival: 05/29/2022 16:07:55 Discharge: 05/29/2022 19:00:00 LOS: 000 02:53 Check In: 05/29/2022 16:07:55 Checkout:05/29/2022 19:00:00 Address: [address] [place], [place] [address] PCP: Provider, None PROVIDER INFORMATION Provider Role Assigned Unassigned Kaiden Mcduffie PA-C ED PA 05/29/2022 16:09:09 Yahaira Espana SOFT TOP INSTALLER Nurse 05/29/2022 16:58:49 VITALS INFORMATION Vital Sign Triage Latest Temperature Tympanic Temperature Temporal Artery Pulse Rate 96 bpm 96 bpm O2 Sat 97 % 97 % Respiratory Rate 18 br/min 18 br/min Blood Pressure /71 mmHg /71 mmHg MEDICAL INFORMATION Medications Given: Allergy Information: Mono; Latex Allergy; penicillins; codeine PHYSICIAN DOCUMENTATION Patient: NE KEITA Age: 36 years Sex: FEMALE : 1985 Associated Diagnoses: Vaginal bleeding; Hypokalemia; Abnormal uterine bleeding Author: Kaiden Mcduffei PA-C Basic Information Time seen: Date & time 05/29/2022 16:33:00. History source: Patient. Arrival mode: Private vehicle. History limitation: None. History of Present Illness 36-year-old female presents here to the emergency department with her daughter with chief complaint of heavy vaginal bleeding. Patient states a history of heavy vaginal bleeding and irregular bleeding in which she is scheduled to have a hysterectomy with her structured cabling technician Dr. Mcmahan at [facility] around the 13 of July. 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 Patient states a history of heavy vaginal bleeding and irregular bleeding and which is the reason for her hysterectomy. Patient states her last episode of bleeding was approximately 2 weeks ago. Patient states she was told if she ever bleeds through a pad within half an hour or passes any large clots that she should be seen as she may need emergent hysterectomy. Patient denies any abdominal pain. Patient states she lives in [place] but is here in town for a which she states she was at the [place]. States she was eating lunch when she felt something abnormal in the pelvic region and when she got up to use the restroom. Patient states she had a urgency urinate in which she states she did pass urine but states she then noticed that her pants are wet and when she had a large amount of bleeding and states she passed a large clot about the size of a nikolai. Patient states she continues to have bleeding and has soaked through 4 large pads in which she came into the emergency department for evaluation. Patient states that she has not contacted her structured cabling technician in regards to her visit today. She denies any weakness she denies any abdominal pain. She has no other concerns at this time. Review of Systems Constitutional symptoms: No fever, no chills, no sweats, no weakness, no fatigue. Skin symptoms: No rash, no pruritus, no abrasions. Eye symptoms: Vision unchanged. ENMT symptoms: No ear pain, no sore throat, no nasal congestion, no sinus pain. Respiratory symptoms: No shortness of breath, no cough. Cardiovascular symptoms: No chest pain, no palpitations, no tachycardia, no syncope, no diaphoresis, no peripheral edema. Gastrointestinal symptoms: No abdominal pain, no nausea, no vomiting, no diarrhea, no constipation. Genitourinary symptoms: Vaginal bleeding, no dysuria, no hematuria, no vaginal discharge. Musculoskeletal symptoms: No back pain, no Muscle pain, no Joint pain. Neurologic symptoms: No headache, no dizziness, no altered level of consciousness, no numbness, no tingling, no weakness. Additional review of systems information: All other systems reviewed and otherwise negative. Health Status Allergies: Allergic Reactions (Selected) Moderate Mono- No reactions were documented. Severity Not Documented Codeine- Rash. Latex Allergy- No reactions were documented. Penicillins- No reactions were documented.. Medications: (Selected) Inpatient Medications Ordered Sodium Chloride 0.9% intravenous solution 1,000 mL: 100 mL/hr, IV Prescriptions Prescribed Flonase 50 mcg/inh nasal spray: 2 spray(s), Nasal, BID, 16 gm, 0 Refill(s) Loestrin 21 1.5/30 oral tablet: See Instructions, 3 tab(s) PO Daily, 21 tab(s), 0 Refill(s) albuterol 90 mcg/inh inhalation aerosol: 2 puff(s), INH, q4hr, PRN: for wheezing, 18 gm, 0 Refill(s) ferrous sulfate 325 mg (65 mg elemental iron) oral delayed release tablet: 325 mg = 1 tab(s), PO, Daily, for 14 day(s), 14 tab(s), 0 Refill(s) potassium chloride 20 mEq oral tablet, extended release: 20 mEq = 1 tab(s), PO, Daily, for 3 day(s), 3 tab(s), 0 Refill(s) Documented Medications Documented Abilify: PO, (more content not included)... Normal [facility] ED Note - Physicianon 2021 ED Note - Physician Patient: CHRISTIANO KEITA Age: 36 years Sex: FEMALE : 1985 Associated Diagnoses: Vaginal bleeding; Hypokalemia; Abnormal uterine bleeding Author: Froy VENTURA, Kaiden Hull Basic Information Time seen: Date & time 05/29/2022 16:33:00. History source: Patient. Arrival mode: Private vehicle. History limitation: None. History of Present Illness 36-year-old female presents here to the emergency department with her daughter with chief complaint of heavy vaginal bleeding. Patient states a history of heavy vaginal bleeding and irregular bleeding in which she is scheduled to have a hysterectomy with her structured cabling technician Dr. Mcmahan at [facility] around the 13 of July. 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 Patient states a history of heavy vaginal bleeding and irregular bleeding and which is the reason for her hysterectomy. Patient states her last episode of bleeding was approximately 2 weeks ago. Patient states she was told if she ever bleeds through a pad within half an hour or passes any large clots that she should be seen as she may need emergent hysterectomy. Patient denies any abdominal pain. Patient states she lives in [place] but is here in town for a which she states she was at the [place]. States she was eating lunch when she felt something abnormal in the pelvic region and when she got up to use the restroom. Patient states she had a urgency urinate in which she states she did pass urine but states she then noticed that her pants are wet and when she had a large amount of bleeding and states she passed a large clot about the size of a nikolai. Patient states she continues to have bleeding and has soaked through 4 large pads in which she came into the emergency department for evaluation. Patient states that she has not contacted her structured cabling technician in regards to her visit today. She denies any weakness she denies any abdominal pain. She has no other concerns at this time. Review of Systems Constitutional symptoms: No fever, no chills, no sweats, no weakness, no fatigue. Skin symptoms: No rash, no pruritus, no abrasions. Eye symptoms: Vision unchanged. ENMT symptoms: No ear pain, no sore throat, no nasal congestion, no sinus pain. Respiratory symptoms: No shortness of breath, no cough. Cardiovascular symptoms: No chest pain, no palpitations, no tachycardia, no syncope, no diaphoresis, no peripheral edema. Gastrointestinal symptoms: No abdominal pain, no nausea, no vomiting, no diarrhea, no constipation. Genitourinary symptoms: Vaginal bleeding, no dysuria, no hematuria, no vaginal discharge. Musculoskeletal symptoms: No back pain, no Muscle pain, no Joint pain. Neurologic symptoms: No headache, no dizziness, no altered level of consciousness, no numbness, no tingling, no weakness. Additional review of systems information: All other systems reviewed and otherwise negative. Health Status Allergies: Allergic Reactions (Selected) Moderate Mono- No reactions were documented. Severity Not Documented Codeine- Rash. Latex Allergy- No reactions were documented. Penicillins- No reactions were documented.. Medications: (Selected) Inpatient Medications Ordered Sodium Chloride 0.9% intravenous solution 1,000 mL: 100 mL/hr, IV Prescriptions Prescribed Flonase 50 mcg/inh nasal spray: 2 spray(s), Nasal, BID, 16 gm, 0 Refill(s) Loestrin 21 1.5/30 oral tablet: See Instructions, 3 tab(s) PO Daily, 21 tab(s), 0 Refill(s) albuterol 90 mcg/inh inhalation aerosol: 2 puff(s), INH, q4hr, PRN: for wheezing, 18 gm, 0 Refill(s) ferrous sulfate 325 mg (65 mg elemental iron) oral delayed release tablet: 325 mg = 1 tab(s), PO, Daily, for 14 day(s), 14 tab(s), 0 Refill(s) potassium chloride 20 mEq oral tablet, extended release: 20 mEq = 1 tab(s), PO, Daily, for 3 day(s), 3 tab(s), 0 Refill(s) Documented Medications Documented Abilify: PO, Daily, 0 Refill(s) Adderall 30 mg oral tablet: 30 mg, 1 tab(s), PO, BID, 0 Refill(s) PROzac 20 mg oral capsule: 40 mg, 2 cap(s), PO, Daily, 0 Refill(s) Xanax 1 mg oral tablet: 1 mg = 1 tab(s), PO, TID, 0 Refill(s) gabapentin 600 mg oral tablet: 600 mg = 1 tab(s), PO, BID. Menstrual history: Last menstrual period: 2 week(s) ago, tubal ligation. history: 11, para 4, full term births 4, spontaneous (s) 7. Past Medical/ Family/ Social History Medical history: Resolved Rib pain on right side ([id number]): Resolved.. Surgical history: Biopsy cervical cone cold knife on 04/10/2018 at 32 Years. Biopsy cervical cone cold knife on 01/09/2018 at 32 Years. Cervical biopsy ([id number]) on 12/10/2017 at 32 Years. 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 ECC Negative Colposcopy ([id number]) on 12/10/2017 at 32 Years. (more content not included)... Normal [facility] ED Note-Nursingon 05-29-2022 ED Note-Nursing Pt. admitted to the ED via personal vehicle and walked back to room 6. Pt. complains of vaginal bleeding with nikolai size clots. Pt. denies any pain or discomfort at this time. Pt. is alert and orientated x4. Pt. has a steady gait. Normal [facility] ED Patient Summaryon 022 ED Patient Summary [facility] - Emergency Department [address] [place], [place] [id number] PATIENT DISCHARGE INSTRUCTIONS Patient Information Name: NE KEITA Age: 36 Years Date of : 1985 Reason For Visit: VAGINAL BLEEDING Arrival Time: 05/29/2022 16:07:55 Primary Care Physician: Provider, None Attending Physician: Arun Frank MD Comment: Visit Diagnosis: Diagnoses This Visit Abnormal uterine bleeding (N93.9) Hypokalemia (E87.6) Vaginal bleeding (N93.9) Prescription Information: If you have been given a prescription for narcotics, seek immediate medical attention if you have any difficulty breathing or any sudden status changes such as confusion and sleepiness. If you or anyone you know is experiencing suicidal thoughts, mental health, alcohol and/or drug addiction problems; contact the [facility] 20/05 Crisis Hotline -Text 4HDWN ba 426372. If you received any narcotics, sedation, or any other medication that causes drowsiness for the next 24 hours, unless otherwise directed: ? Do not drive a car. ? Do not operate machinery such as power tools, lawn mowers, drills, sewing machines, or stoves ? Avoid alcoholic beverages and drugs for allergies, nerves, or sleep ? Do not make important personal or business decisions or sign any legal documents With: Address: When: [address], [address] [place], [place] [id number] Business (1) Within 3 to 5 days Comments: Please follow-up with your structured cabling technician in 3 to 5 days. Please contact his office first thing tomorrow morning to schedule a follow-up appointment. I discussed with him and went over your lab results from today in regards to heavy or abnormal uterine bleeding which started this afternoon. At this time he would like for you to take a control pill 3 pills daily until you see him in the office as this is really the only way to slow down uterine bleeding. Other labs appeared within normal limits. Your potassium was slightly low sera given 1 tablet of potassium daily over the next 3 days and follow-up with primary care provider for reevaluation in regards to potassium level. You are also prescribed iron supplement 1 tablet daily over the next 14 days also encouraged by Dr. Mcmahan. if you have any increased bleeding develop abdominal pain develop weakness you should go to [facility] emergency department, where your structured cabling technician is at and where you can be seen if needed. You may return here to the emergency department for any worsening or concerning symptoms. Medication Information: The exam and treatment you received today in the [facility] Emergency Department were for an urgent problem and are not intended as complete care. It is important for you to follow up with a doctor, nurse practitioner, or physician?s anesthesiologists' assistant for ongoing care. If your symptoms become worse or you do not improve as expected and you are unable to reach your usual health care provider, you should return to the Emergency Department, we are available 24 hours a day. For those patients who have received Radiology results, the interpretation of your X-ray as given to you by our Emergency Department physician is only a preliminary report. The Radiologist will review your films and if there is a change in the diagnosis you will be notified by phone. Please make sure you have provided a working phone number so we can reach you if necessary. In the event that you had a lab culture while you were a patient in the Emergency Department, you will be notified by phone if there is a need to change your antibiotic. Please make sure you have provided a working phone number so we can reach you if necessary. [facility] Emergency Department has provided you with a complete list of medications post discharge. Please inform your helper steel fabrication/provider of your visit and for further instruction on these medications. Any specific questions regarding your chronic medications and dosages should be discussed with your primary care physician(s) and/or pharmacist. New Medications [id number], [address], [place] [id number], [phone] ethinyl estradiol-norethindrone (Loestrin 21 1.5/30 oral tablet) 3 tab(s) PO Daily. Refills: 0. ferrous sulfate (ferrous sulfate 325 mg (65 mg elemental iron) oral delayed release tablet) 1 tab(s) Oral every day for 14 Days. Refills: 0. potassium chloride (potassium chloride 20 mEq oral tablet, extended release) 1 tab(s) Oral every day for 3 Days. Refills: 0. Medications to Continue That Have Not Changed Other Medications albuterol (albuterol 90 mcg/inh inhalation aerosol) 2 puff(s) Inhalation Every 4 hours as needed for wheezing. Refills: 0. ALPRAZolam (Xanax 1 mg oral tablet) 1 tab(s) Oral 3 times a day. amphetamine-dextroamphetamin e (Adderall 30 mg oral tablet) 1 tab(s) Oral 2 times a day. ARIP (more content not included)... Normal [facility] Extra Redon 05-29-2022 Tube Collected Yes Invalid Interpretation Code [facility] Comment on above: Performed By: #### 1 [id number], [id number], [id number], [id number], [id number], [id number], [id number] #### [facility] (DEFAULT) [address] [place] [address]44 Lactic Acidon 05-29-2022 Lactic Acid 15.2 mg/dL Normal 4.5-19.8 [facility] Comment on above: Performed By: #### 2 [id number] #### [facility] (DEFAULT) [address] [place] [address] 27683 Lipaseon 05-29-2022 Lipase Level 25.0 IU/L Normal 22.0-51.0 [facility] Comment on above: Performed By: #### 1 [id number], [id number], [id number], [id number], [id number], [id number], [id number] #### [facility] (DEFAULT) [address] [place] [address] PTon 05-29-2022 INR Coag (PPP) [Relative time] 0.96 {INR} Normal 0.91-1.11 [facility] Comment on above: Performed By: #### 1 [id number], [id number], [id number], [id number], [id number], [id number], [id number] #### [facility] (DEFAULT) [address] [place] [address] PT 10.4 second(s) Normal 9.7-11.8 [facility] Comment on above: Performed By: #### 1 [id number], [id number], 6794084, 1069657, [id number], 1131304, [id number] #### [facility] (DEFAULT) [address] [place] [address] 89013 PTTon 05-29-2022 PTT 26 second(s) Normal 25-35 [facility] Comment on above: Performed By: #### 1 [id number], [id number], [id number], [id number], [id number], 5833436, [id number] #### [facility] (DEFAULT) [address] [place], [place] [address] Test Urine 1on U Preg Negative Normal [facility] Comment on above: Performed By: #### 3 [id number], [id number], [id number] #### [facility] (DEFAULT) [address] [place] [address] 35026 U Preg Internal Control Pass [facility] Comment on above: Performed By: #### 3 [id number], [id number], [id number] #### [facility] (DEFAULT) [address] [place] [address] 56708 UA Iaajn7mu 05-29-2022 UA Bacteria None [facility] Comment on above: Order Comment: Urina lysis Microscopic order added on by Discern Expert Rules system. Performed By: #### 3 [id number], [id number], [id number] #### [facility] (DEFAULT) [address] [place] [address] 63798 UA RBC Gross Blood Normal [facility] Comment on above: Order Comment: Urina lysis Microscopic order added on by Building[employer] Expert Rules system. Performed By: #### 3 [id number], [id number], [id number] #### [facility] (DEFAULT) [address] [place] [address] UA WBC None Seen [facility] Comment on above: Order Comment: Urina lysis Microscopic order added on by [employer] Expert Rules system. Performed By: #### 3 [id number], [id number], [id number] #### [facility] (DEFAULT) [address] [place] [address] UA w Culture if Ind Standard on 05-29-2022 Breakpoint UA [facility] Comment on above: Performed By: #### 3 [id number], [id number], [id number] #### [facility] (DEFAULT) [address] [place] [address] 48857 Color (U) Red [facility] Comment on above: Result Comment: Test cannot be satisfactorily determined due to intensely colored urine. Performed By: #### 3 [id number], [id number], [id number] #### [facility] (DEFAULT) [address] [place] [address] Culture? Not Indicated Invalid Interpretation Code [facility] Comment on above: Result Comment: Resu lt created by rule GL_MAGR_ADD_UA_CULT Performed By: #### 3 [id number], [id number], [id number] #### [facility] (DEFAULT) [address] [place] [address] 79139 Glucose (U) [Mass/Vol] Negative Normal [facility] Comment on above: Performed By: #### 3 [id number], [id number], [id number] #### [facility] (DEFAULT) [address] [place] [address] 19189 Ketones Ql (U) Negative [facility] Comment on above: Performed By: #### 3 [id number], [id number], [id number] #### [facility] (DEFAULT) [address] [place] [address] Micro? Not Indicated Invalid Interpretation Code [facility] Comment on above: Result Comment: Resu lt created by rule GL_MAGR_ADD_UA_MICRO Result created by rule GL_MAGR_ADD_UA_MICRO Performed By: #### 3 [id number], [id number], [id number] #### [facility] (DEFAULT) [address] [place] [address] 23393 UA Bilirubin SMALL Abnormal [facility] Comment on above: Performed By: #### 3 [id number], [id number], [id number] #### [facility] (DEFAULT) [address] [place] [address] 62790 UA Blood LARGE Abnormal NEGATIVE [facility] Comment on above: Performed By: #### 3 [id number], [id number], [id number] #### [facility] (DEFAULT) [address] [place] [address] 95416 UA Clarity TURBID Abnormal CLEAR [facility] Comment on above: Performed By: #### 3 [id number], [id number], [id number] #### [facility] (DEFAULT) [address] [place] [address] 33577 UA Leuk Est Negative Normal [facility] Comment on above: Performed By: #### 3 [id number], [id number], [id number] #### [facility] (DEFAULT) [address] [place] [address] 36506 UA Nitrite Negative Normal NEGATIVE [facility] Comment on above: Performed By: #### 3 [id number], [id number], [id number] #### [facility] (DEFAULT) [address] [place] [address] UA pH 6.0 Normal 5-8 [facility] Comment on above: Performed By: #### 3 [id number], [id number], [id number] #### [facility] (DEFAULT) [address] [place] [address] UA Protein >=300 Abnormal NEGATIVE [facility] Comment on above: Performed By: #### 3 [id number], [id number], [id number] #### [facility] (DEFAULT) [address] [place] [address] UA Spec Grav >=1.030 Normal 1.001-1.[address] [place] [address] Comment on above: Performed By: #### 3 [id number], [id number], [id number] #### [facility] (DEFAULT) [address] [place] [address] UA Urobilinogen 1.0 mg/dL Normal 0.2-1.0 [facility] Comment on above: Performed By: #### 3 [id number], [id number], [id number] #### [facility] (DEFAULT) [address] [place] [address] Urine Source Clean Catch Normal [facility] Comment on above: Performed By: #### 3 [id number], [id number], [id number] #### [facility] (DEFAULT) [address] [place] [address] No Panel InformationOrdered By: Farhat Castro on 04-07-2022 SARS Antigen (LFIA) [facility] COVID-19 SOFIAOrdered By: Andrea Castro on 04-06-2022 SARS-CoV+SARS-CoV-2 (COVID-19) Ag IA.rapid Ql (Resp) Negative Negative [facility] Comment on above: This is a duplicate Laura SARS Antigen (JESSICA) result to be used for statistical tracking purpose only. ANES Jeaneth 04-10-2018 ANES POST HNO ID: [id number] thor: TONO Arreolaervice: AnesthesiologyAuthor Type: AnesthesiologistType: Anesthesia PostOpFiled: 04/10/2018 8:52 AMNote Text:POST ANESTHESIA EVALUATION NOTESERVICE DATE: 04/10/2018SERVICE TIME: 8:52 AMDOB: 1985Vitals: 04/10/1808Temp: 36.4 ?C (97.5 ?F) 36.3 ?C (97.3 ?F) 04/10/18085BP: 121/57 131/75 138/57 04/10/1808Pulse: 70 70 73 04/10/1808Resp: 18 18 21 04/10/1808SpO2: 96% 98% 99%Validated Vital Signs: YesPOST ANES STATUS: No apparent anesthetic complications. The patient isappropriately hydrated with stable respiratory and cardiovascular status.Patient has safe and adequate airway control. The patient has appropriatepain relief and no significant post operative nausea or vomiting. Thepatient has achieved baseline mental status.Further assessment by Anesthesia Service: NoneOther Remarks:SIGNATURE: Renato Cruz MD PATIENT NAME: Ne CarranzaATE: April 10, 2018 : 8:51 AM PAGER/CONTACT #: [phone] [facility] ANES PREOPon 04-10-2018 ANES PREOP HNO ID: [id number] thor: TONO Arreolaervice: AnesthesiologyAuthor Type: AnesthesiologistType: Anesthesia PreOpFiled: 04/10/2018 7:20 AMNote Text: ANESTHESIOLOGY DAY OF SURGERY NOTESERVICE DATE: 04/10/2018SERVICE TIME: 7:19 AMDOB: 1985Procedure(s) (LRB):COLD KNIFE CONIZATION OF UTERINE CERVIX W/ DANDC (N/A)Surgeon(s):Mary BlancharddiEstimated body mass index is 43.6 kg/m? as calculated from the following: Height as of 04/01/18: 162.6 cm (5' 4 ). Weight as of 04/01/18: 115.2 kg (254 lb).Most recent hematocrit and potassium results:Hematocrit 48.3 04/01/2018Potassium 4.2 04/01/2018ANES DOS/PREOP NOTE:Vitals: 314006LH: 121/57Pulse: 70Resp: 18Temp: 36.4 ?C (97.5 ?F)TempSrc: Temporal ArterySpO2: 96%ACTIVE PROBLEM LISTScoliosis (And Kyphoscoliosis), IdiopathicLumbagoChronic Pain SyndromeHistory of ScoliosisThoracic Back PainHistory of Noncompliance With Medical TreatmentMyalgia and Myositis, UnspecifiedCin Iii (Cervical Intraepithelial Neoplasia Grade Iii) With SevereDysplasiaMorbid Obesity (Hcc)Tobacco AbusePAST MEDICAL HISTORYDiagnosis Date- Adjustment disorder with depressed mood- Cancer (HCC) cervix- 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- Convulsions in - Other anxiety states- Severe dysplasia of cervixPAST SURGICAL HISTORYProcedure Laterality Date- LAMINECTOMY,LUMBAR 03/24/1998 scoliosis surgery; put in 2 metal rods (ZUNIGA RODS)- PAST SURGICAL HISTORY OF 01/09/2018 cervical cone cold knife surgery- TUBAL LIGATION HX clips- VAGINOSCOPYFAMILY HISTORYProblem Relation Age of Onset- Breast Cancer Maternal Grandmother at age 39- Breast Cancer Maternal Aunt Many cousins also had breast cancer- Cancer Mother Ovarian cancer ; living and wellSocial History:Social HistorySubstance Use Topics- Smoking status: Current Every Day Smoker Packs/day: 0.75 Years: 20.00 Types: Cigarettes- Smokeless tobacco: Never Used- Alcohol use NoNo current facility-administered medications on file prior to encounter.Current Outpatient Prescriptions on File Prior to Encounter:Amphetamine-Dextro amphetamine (ADDERALL) 30 mg tablet Take 30 mg by mouthtwice daily.gabapentin (NEURONTIN) 300 mg capsule Take 300 mg by mouth three timesdaily.ibuprofen (MOTRIN) 600 mg tablet Take 1 tablet by mouth every 6 hours asneeded for Pain.MULTIVIT-MINERALS/CARMELA US FUM (MULTI VITAMIN ORAL) Take by mouth oncedaily.FLUoxetine HCl (PROZAC) 40 mg capsule Take 40 mg by mouth once daily.meloxicam (MOBIC) 7.5 mg tablet Take 7.5 mg by mouth once daily.ARIPiprazole (ABILIFY) 10 mg tablet Take 10 mg by mouth once daily.ALPRAZolam (XANAX) 1 mg tablet Take 1 mg by mouth as needed.Current Facility-Administered Medications:lidocaine 10 mg/mL (1 %) 1-2 mg injection (XYLOCAINE) 0.1-0.2 mLINTRADERMAL PRN Rafal (Benzene Washer) Gargalianoslactated ringers infusion 5-30 mL/hr INTRAVENOUS CONTINUOUS Rafal (Benzene Washer)Gargalianos Last Rate: 30 mL/hr at 04/10/18 0707 30 mL/hr at 04/10/18 0707acetaminophen 1,000 mg tab(s) (TYLENOL) 1,000 mg ORAL ONCE Casey Arreolaomethazine 12.5 mg tab(s) (PHENERGAN) 12.5 mg ORAL ONCE Esau Arreolaergies: ALLERGIESNo Known AllergiesDOS EXAM: Adequate NPO status: YesAnesthetic risks, benefits, alternatives, personnel and consent discussed:YesPatient agrees to proceed: YesPrevious Anesthesia: No history of adverse event.Airway Assessment: MP 2; Neck ROM: Full ROM without neurologic symptoms;Airway Evaluation: Thick neckSymptoms of Sleep Apnea: NoneDentition: Chipped, loose and/or missing Chipped lowerAdditional Physical Exam:Lungs: Lungs clear to auscultation. Good diaphragmatic excursion.Cardiac: normal S1 and S2; no rubs, no murmurs, and no gallopsAdditional Pertinent Findings: N/ABlood Products: Not anticipated for this procedure.Anesthetic Plan: General, Standard ASA MonitorsPain Management Plan: Parenteral or OralASA Class: 2Other Medical Problems: NoneChronic Beta Ailyn medication administered within 24 hours: N/AI have interviewed and examined the patient. I have reviewed the medicalrecord and/or the pre-anesthesia evaluation, pertinent labs, and testresults.Significant changes in the patient's condition since the History andPhysical, not otherwise documented in primary service progress notes: NoThis contains updated information obtained within 48 hours ofSurgery/Procedure.SIGNATUR E: Renato Cruz MD PATIENT NAME: Ne VitalioDATE: April 10, 2018 : 7:19 AM CSN: [id number] [facility] OPERATIVE NOon 04-10-2018 OPERATIVE NO HNO ID: [id number] thor: MaryAguirreice: Gynecology OncologyAuthor Type: PhysicianType: Operative ReportFiled: 04/14/2018 8:59 AMNote Text:OPERATIVE/PROCEDURE REPORTLOG ID: [id number]/PROCEDURE DATE: 04/10/2018INCISION/PROCEDURE START TIME: 7:59 AMINCISION CLOSE/PROCEDURE END TIME: 8:14 AMSURGEON(S)/PROCEDURALIST(S ) AND TRANSIT POLICE OFFICER(S):Surgeon(s) and Role: * Mary Treadwell - Primary * Mitali (Res) Alan - Resident - AssistingNo Additional StaffProcedure(s):Cervical knife cone biopsy and ECC??Anesthesia: General??Operative Findings:Normal appearing scant cervix and vagina with no gross lesions.??Procedure Details:?After obtaining informed consent and formal surgical timeout , plannedanesthesia was initiated, The patient was placed on dorsal lithotomyposition using yellow stirrups, she was prepped and draped in a normalsterile fashion. The higgins catheter was used to drain the bladder. Thevagina was gently prepped to avoid damage to the superficial cervicalcells. A weighted speculum was inserted into the vagina and a Liberty wasused to achieve exposure to the cervix. There were no visible lesion oncervix, squamocolumnar junction was visible. Approximately 10 mL of adilute solution (4 U of 0.05 U/mL of vasopressin in 100 mL of normalsaline) was injected into the cervical stroma and 0.25% marcaine was usedto perform a paracervical block with injection at 4:00 and 8:00 on thecervix. Then stay sutures were applied at 3:00 and 9:00 on the cervix andthis was used for stabilizing the cervix during the procedure. Thenuterine sound was placed through the cervical canal and was advanced tothe fundus of the uterus. The cervix was measured to be about 2.0-2.5?cm,and a number 11 blade scalpel was used to cut a cone-shaped piece ofcervix. The cervical cone length was approximately 2.0. The specimen wassent to pathology. Then endocervical curette was used to obtainendocervical sample. Hemostasis was assured using a ball tip cautery.Hemostasis was excellent. By the end of the case, Monsel solution wasapplied on the cervix followed by surgicel and the stay sutures were tiedtogether to keep the surgicel in place. hemostasis was assured.Patient tolerated the procedure and all counts were correct x 2. Patienttransferred to the recovery room in a stable condition??Pre-Op/Pre-Proced ure Diagnosis:?Cervical dysplasia??Post-Op/Post-Proc edure Diagnosis:?Same ?Estimated Blood Loss:?20?mls??Specimens:?cer vical cone and ECC??Implantable Devices:?None??Drains:?None? ?Complications: None??I performed the procedure with assistance.?SIGNATURE: Mary Treadwell MD PATIENT NAME: Ne VitalioDATE: April 10, 2018 : 10:44 AM PAGER/CONTACT #: [facility] PLAN OF CAREon 04-10-2018 PLAN OF CARE HNO ID: [id number] thor: Rehana Avila (Charge Master Coordinator)Service: (none)Author Type: (none)Type: Plan of CareFiled: 04/10/2018 11:36 AMNote Text:PHARMACY BEDSIDE DELIVERY SERVICEPatient Name: Ne KeitaMRN: [id number] marked outpatient medications were Filled at: [facility] and deliveredto the patient's bedside to picked up at pharmacyMedication ListSTART taking these medicationsoxyCODONE ir 5 mg capsuleCommonly known as: OXYIRTake 1 capsule by mouth every 6 hours as needed for up to 3 days.CONTINUE taking these medicationsABILIFY 10 mg tabletGeneric drug: ARIPiprazoleADDERALL 30 mg tabletGeneric drug: Amphetamine-Dextroamphetamin eALPRAZolam 1 mg tabletCommonly known as: XANAXFLUoxetine HCl 40 mg capsuleCommonly known as: PROzacgabapentin 300 mg capsuleCommonly known as: NEURONTINibuprofen 600 mg tabletCommonly known as: MOTRINTake 1 tablet by mouth every 6 hours as needed for Pain.meloxicam 7.5 mg tabletCommonly known as: MOBICMULTI VITAMIN ORALYou might also be taking other medications not listed above. If you havequestions about any of your other medications, talk to the person whoprescribed them or your Primary Care Provider.Rehana Avila (Roojoom)PAGER: [phone] 2017 11:36 AM [facility] PLAN OF CARE HNO ID: [id number] thor: Rehana Avila (Roojoom)Service: (none)Author Type: (none)Type: Plan of CareFiled: 04/10/2018 9:20 AMNote Text:Pharmacy Discharge Medication Service:This patient has elected to receive their discharge prescriptions throughthe [facility] Bedside Prescription Delivery program. Theprescriptions are currently being processed. A follow-up note will beentered once the prescriptions have been filled and delivered to thepatient. Please contact me with any questions or updates to the patient'sdischarge medications.Rehana Avila (Roojoom)DCT Contact Info: [phone] [facility] PLAN OF CARE HNO ID: [id number] thor: Rehana Avila (Roojoom)Service: (none)Author Type: (none)Type: Plan of CareFiled: 04/10/2018 9:20 AMNote Text:BA[employer]ER [employer]PER[employer]ORS SUPERVISOR BEDSIDE DELIVERY SURVEY1. Patient to use [facility] Bedside Delivery - YES2. If fax, patient would like us to fax prescriptions to Pharmacy ofchoice a. Pharmacy: b. Location: c. Phone:3. Insurance card on file - YES4. Credit card for payment - N/ANo prescriptions yet. Please page [phone] upon discharge. Normal [facility] SURGICAL PATHOLOGYon 04-10- 018 SURGICAL PATHOLOGY [facility]: [id number] Physician: MARY TREADWELL MD FINAL DIAGNOSIS1. Endocervical curettings (A) - Fragments of benign endocervical tissue.2. Cervix, cone biopsy (B) - Negative for dysplasia. - See comment. COMMENTB. An immunohistochemical stain, with appropriately staining controls, forp16 performed on block B6 was negative.Laboratory Developed Test (LDT) Disclaimer:Positive and negative controls stain appropriately. Performancecharacteristics of immunohistochemical, immunofluorescent and chromogenicin-situ hybridization tests have been determined by [facility] and Laboratory Medicine [place] ([facility]) alireza manner consistent with CLIA requirements. One or more of these tests havenot been cleared or approved by the FDA. [facility] is regulated under CLIA asqualified to perform high-complexity testing. These tests are used forclinical purposes. They should not be regarded as investigational or forresearch.BY/NEERU/ayush 04/13/18Vipin Donahue M.D. Ph.D.(Electronic Signature) SPECIME N SUBMITTEDA: ENDOCERVICAL, CURETTINGS B: CERVIX, CONE BIOPSY CLINICAL DATACERVICAL INTRAEPITHELIAL NEOPLASIA GRADE III WITH SEVERE GROSS DESCRIPTIONA. Received in formalin designated endocervical curettings are multiplepink-okeefe ragged fragments of soft tissue that aggregate to 0.9 x 0.4 x 0.2cm. The specimen is entirely filtered in one cassette.B. Received in formalin designated cervical cone biopsy is an orientedportion of cervix that measures 2 x 2 x 1.5 cm. The ectocervix is pink-tanand wrinkled. The cervical os is stenosed. The resection margin is okeefe andgranular. There is a suture that designates 12 o'clock. The specimen isinked as follows: 12 o'clock - blue; 6 o'clock - green; endocervix -orange. The specimen is serially sectioned in a clockwise manner from 1o'clock to 12 o'clock to reveal okeefe and granular cut surfaces. The specimenis entirely submitted in sequential order from 1 to 12 o'clock incorresponding cassettes. PADMINI/justin/04/10/18Gross examination performed at [facility], [address] [address] of Report: 04/15/2018Date of Procedure: 04/10/2018Date of Receipt: 04/10/2018Submitted by: MARY TREADWELL MDLocation: FVORDiagnostic interpretation performed at [facility], [address] [place], [place] [id number]. [facility] Comment on above: Performed By: #### P ATHS ####[id number] [place] [address] NURSING PROGon 04-09-2018 NURSING PROG HNO ID: [id number] thor: Yani (Rn) Rafy: (none)Author Type: Registered NurseType: Nursing Progress NoteFiled: 04/09/2018 10:02 AMNote Text:PACC Nurse Progress NoteHistory AND Physical:PACC Visit Date: 6-8-04Fklzzyzs HANDP Date: N/AED visit Date: N/AOutside HANDP Scanned Date: N/ALabs Within Last 6 Months:CBC: Date 04-01-18BMP/CMP: Date 04-01-18 WNLResults reviewed and acceptable per anesthesia guidelines for upcomingsurgeryImaging Within Last 12 Months:N/ACardiac Testing:EKG in last 12 Months: Yes: Date: 01-02-18, Comment: Confirmed SRLast Menstrual Period:LMP Date: 6-24-15Krorxlfycfycnn >1yr: No,S/P Hysterectomy: N/ABMI Percentile (PEDS):N/ARisk Assessment:N/AAnesthesia Review:N/ANarrative:Per PACC HANDP 04-01-18:BMI 44Pre-op Considerations:Significant Anesthesia Considerations: No history of adverse event withanesthesia. Pt. has history scoliosis s/p surgery with Zuniga rodplacement in 1997; she sustained a (right) pneumothorax reported due tothe re-alignment of her spine an anticipated risk. Pt. denies any othercomplications with prior surgeries.Chart Check:Rex Pereze 2017 9:50 AM [facility] Jason 04-02-2018 BRYANTN Telephone ([facility]) ---NE KEITA ([id number]) 1985 FDate Time Provider Department04/02/18 ROXY BRANTLEY (RN) GYNML During your visit today, we recorded the following information about you:Roxy Brantley, RN, RN 04/02/2018 9:17 AM SignedCalled patient and LVM to call back for pre-op teachingRoxy Brantley RN, RN 04/04/2018 3:58 PM SignedProcedure: COLD KNIFE CONIZATION OF UTERINE CERVIXPhysician: Dr. Diazcation: [facility]: [phone] AND Time: 04/10/2018 and TIME will be given to you, by the hospital, after12:00noon, the DAY BEFORE the procedure.MEDICAL CLEARANCE: No CARDIAC CLEARANCE: NoPRE ADMISSION TESTING: Yes , done 04/01/2018THE FOLLOWING WAS EVALUATED Motivation To Learn: Interested Family/Significant Other Support: Unable to assess - Family not present Cognitive Ability: Alert and orientedPatient Learns Best By: Individual InstructionVerbal InstructionThe Following Influencing Factors Were Barriers To This Education Session: NoneThe Following Physical Limitations Were Barriers To This Education Session:NoneInstruction Provided To: PatientMEDICATION INFORMATIONASPIRIN and ADVIL can make you more prone to bleeding after surgery. PleaseSTOP taking these medications at least (7) days before and for (3) days aftersurgery or procedure. Some common medications that contain ASPIRIN or act likeAspirin areTO BE AVOIDED:This is a list of the medications you should avoid: Advill Celebrex MotrinAggrenox Clinoril Naprosyn(naproxen)Agrylin NSAIDS Pepto-BismolAleve Ecotrin PersantineAlka-Royalton Excedrin PlaquenilAnacin Heparin PlavixAscriptin Herbals PletalAspergum Ibuprofen TiclidBayer Indocin TrentalBextra Midol VanquishBufferin Gingko Biloba Vitamin E (MVI)MEDICATIONS YOU MAY SUBSTITUTEAnacin 3 Fioricet * Tylenol with codeine *Darvocet N 100 * Plenadol Percocet *Datril Sine-Aide TylenolExcedrin PM(*Denotes prescription needed to obtain these medications)Learning Topic: Procedure/Surgery:Instructio yaritza reviewed for arrival time, parking and admission.Specific topics reviewed and discussed with all surgical patients include:No eating, drinking, or smoking after midnight prior to surgery.Medications as prescribed by anesthesia or the physician.Bowel Prep as indicated.Review of information contained in surgical packetPre-operative and intra-operative general activities were reviewed including:Holding Area, assessments, surgical positioning, and Family Waiting Area.Written post-operative instructions were given to the patient regarding post-opactivity, pain control, symptoms to report.Post-operative instructions provided and reviewed with patient/family:ACTIVITY - No heavy lifting (>5-10 lbs), no pushing/pulling, OK to climb stairsDRIVING - No driving while taking prescription pain medication, or within 24hours of anesthesia, OK to ride in a car.DIET - Advance diet as tolerated and as ordered by MD, drink 8 glasses of watera day, eat a diet high in protein and fiber unless otherwise directed by MD.CATHETER - Will be inserted during surgery, you may go home with a catheter. Ifyou go home with a catheter you will have to come back to the office for avoiding trial, UTI symptoms reviewed and patient instructed to notify MD of anyof these symptoms.INCISION CARE - Keep incision clean and dry, harjit to be removed 7-10 daysafter surgery, steristrips do not need to be removed by MDBATHING - OK to shower after surgery unless otherwise directed by MD, no tubbaths.PAIN MEDICATION - IV pain medication after surgery, IV COPYRIGHT CLERK if ordered by MD,discharged home with a prescription for PO pain medication, pain managementafter surgery, side effects of pain medication (including constipation,dizziness, drowsiness, and medication interactions).DVT PROPHYLAXIS - Early ambulation, SCDs, injectable anticoagulants (heparin,lovenox, etc)RESPIRATORY - Incentive spirometer, coughing/deep breathing exercises,ambulation.RETURN TO WORK - As directed by physician, please send any [facility] papers topst. [facility] centeran's pathology secretary/transcriptionist.SYMPTOMS TO NOTIFY MD - Fever, chills, nausea, vomiting, increased or severepain, heavy vaginal bleeding, foul smelling vaginal drainage, pain or swellingin extremities.URGENT SYMPTOMS - Call 911 or go to ER if any shortness of breath, difficultybreathing, or chest pain.HOW TO CONTACT PHYSICIAN - Physician's office phone number given to patient, ifafter hours patient instructed to call disposal operator and ask for the doctor configuration management architect.Patient and family have phone number to call 24 hours/day.Patient Evaluation: Verbalizes understandingPatient and/or family express understanding of upcoming surgery and theoperative process. Questions answered.Follow Up Plan: Follow up as directed by MD.Supplemental Material Given:Pre-operative teaching packet provided to the patient:INPATIENT/OUTPATIENT printed instructions; Post-operative instruction sheet,bowel prep instruction sheetFor questions contact: office at [phone] By Daiana Brar As of Date: 04/02/2018(No Known Allergies)Date Reviewed: 04/01/2018Reviewed by: Henny [facility]Full[facility]) Nikko - Fully AssessedReason for Visit: Pre-Op Teaching [134]Prescriptions as of 04/02/2018 Sig: DEXTROAMPHETAMINE-AMPHETAMIN E* Take 30 mg by mouth twice alexandre* GABAPENTIN 300 MG CAPSULE Take 300 mg by mouth three ti* IBUPROFEN 600 MG TABLET Take 1 tablet by mouth every * MULTI VITAMIN ORAL Take by mouth once daily. FLUOXETINE 40 MG CAPSULE Take 40 mg by mouth once lynn* MELOXICAM 7.5 MG TABLET Take 7.5 mg by mouth once alexandre* ARIPIPRAZOLE 10 MG TABLET Take 10 mg by mouth once lynn* ALPRAZOLAM 1 MG TABLET Take 1 mg by mouth as needed.*Problem List As Of Date 04/02/2018 Noted Resolved IDIOPATHIC SCOLIOSIS [M41.20] INVALID FOR* LUMBAGO [M54.5] INVALID FOR* Chronic pain syndrome [G89.4] INVALID FOR* History of scoliosis [Z87.39] INVALID FOR* Thoracic back pain [M54.6] INVALID FOR* History of noncompliance with medical treatment*INVALID FOR* Myalgia and myositis, unspecified [TON9775] INVALID FOR* LUCAS III (cervical intraepithelial neoplasia gra*INVALID FOR* More... Morbid obesity (HCC) [E66.01] INVALID FOR* Tobacco abuse [Z72.0] INVALID FOR* Status:Closed by ROXY BRANTLEY on 04/02/18 Normal [facility] HOSPon 03-03-2018 HOSP Patient:Leonard Keitaa DMRN: Height:5' 4 (1.626 m)Weight:254 lb (115.214 kg)Outpatient Medications as of 04/10/18:Amphetamine-Dextroam phetamine (ADDERALL) 30 mg tabletgabapentin (NEURONTIN) 300 mg capsuleibuprofen (MOTRIN) 600 mg tabletMULTIVIT-MINERALS/FERR OUS FUM (MULTI VITAMIN ORAL)FLUoxetine HCl (PROZAC) 40 mg capsulemeloxicam (MOBIC) 7.5 mg tabletARIPiprazole (ABILIFY) 10 mg tabletALPRAZolam (XANAX) 1 mg tabletAdmission/Clinic Administered Medications as of 04/10/18:lidocaine 10 mg/mL (1 %) 1-2 mg injection (XYLOCAINE)lactated ringers infusionacetaminophen 1,000 mg tab(s) (TYLENOL)promethazine 12.5 mg tab(s) (PHENERGAN)ceFAZolin iv piggyback 2 g in D5W (iso-osmotic) 100 mL (ANCEF)Problem List:Scoliosis (and kyphoscoliosis), idiopathic [M41.20]Lumbago [M54.5]Chronic pain syndrome [G89.4]History of scoliosis [Z87.39]Thoracic back pain [M54.6]History of noncompliance with medical treatment [Z91.19]Myalgia and myositis, unspecified [[id number]]LUCAS III (cervical intraepithelial neoplasia grade III) with severe dysplasia[D06.9]Morbid obesity (HCC) [E66.01]Tobacco abuse [Z72.0]Allergies:No Known AllergiesDate Verified:04/10/18Lab ValuesLab Value Units Date High LowPOTA* 4.2 mmol/L 04/01/2018 5.1 3.7HEMA* 48.3 % 04/01/2018 46.0 36.0Progress Notes ([facility]):Roxy Brantley, RN, RN 04/02/2018 9:17 AM SignedCalled patient and LVM to call back for pre-op teachingRoxy Brantley, RN, RN 04/04/2018 3:58 PM SignedProcedure: COLD KNIFE CONIZATION OF UTERINE CERVIXPhysician: Dr. Diazcation: [facility]: [phone] AND Time: 04/10/2018 and TIME will be given to you, by the hospital, after12:00noon, the DAY BEFORE the procedure.MEDICAL CLEARANCE: No CARDIAC CLEARANCE: NoPRE ADMISSION TESTING: Yes , done 04/01/2018THE FOLLOWING WAS EVALUATED Motivation To Learn: Interested Family/Significant Other Support: Unable to assess - Family not present Cognitive Ability: Alert and orientedPatient Learns Best By: Individual InstructionVerbal InstructionThe Following Influencing Factors Were Barriers To This Education Session: NoneThe Following Physical Limitations Were Barriers To This Education Session:NoneInstruction Provided To: PatientMEDICATION INFORMATIONASPIRIN and ADVIL can make you more prone to bleeding after surgery. PleaseSTOP taking these medications at least (7) days before and for (3) days aftersurgery or procedure. Some common medications that contain ASPIRIN or act likeAspirin areTO BE AVOIDED:This is a list of the medications you should avoid: Advill Celebrex MotrinAggrenox Clinoril Naprosyn(naproxen)Agrylin NSAIDS Pepto-BismolAleve Ecotrin PersantineAlka-Royal[place] Excedrin PlaquenilAnacin Heparin PlavixAscriptin Herbals PletalAspergum Ibuprofen TiclidBayer Indocin TrentalBextra Midol VanquishBufferin Gingko Biloba Vitamin E (MVI)MEDICATIONS YOU MAY SUBSTITUTEAnacin 3 Fioricet * Tylenol with codeine *Darvocet N 100 * Plenadol Percocet *Datril Sine-Aide TylenolExcedrin PM(*Denotes prescription needed to obtain these medications)Learning Topic: Procedure/Surgery:Instructio ns reviewed for arrival time, parking and admission.Specific topics reviewed and discussed with all surgical patients include:No eating, drinking, or smoking after midnight prior to surgery.Medications as prescribed by anesthesia or the physician.Bowel Prep as indicated.Review of information contained in surgical packetPre-operative and intra-operative general activities were reviewed including:Holding Area, assessments, surgical positioning, and Family Waiting Area.Written post-operative instructions were given to the patient regarding post-opactivity, pain control, symptoms to report.Post-operative instructions provided and reviewed with patient/family:ACTIVITY - No heavy lifting (>5-10 lbs), no pushing/pulling, OK to climb stairsDRIVING - No driving while taking prescription pain medication, or within 24hours of anesthesia, OK to ride in a car.DIET - Advance diet as tolerated and as ordered by MD, drink 8 glasses of watera day, eat a diet high in protein and fiber unless otherwise directed by MD.CATHETER - Will be inserted during surgery, you may go home with a catheter. Ifyou go home with a catheter you will have to come back to the office for avoiding trial, UTI symptoms reviewed and patient instructed to notify MD of anyof these symptoms.INCISION CARE - Keep incision clean and dry, harjit to be removed 7-10 daysafter surgery, steristrips do not need to be removed by MDBATHING - OK to shower after surgery unless otherwise directed by MD, no tubbaths.PAIN MEDICATION - IV pain medication after surgery, IV COPYRIGHT CLERK if ordered by MD,discharged home with a prescription for PO pain medication, pain managementafter surgery, side effects of pain medication (including constipation,dizziness, drowsiness, and medication interactions).DVT PROPHYLAXIS - Early ambulation, SCDs, injectable anticoagulants (heparin,lovenox, etc)RESPIRATORY - Incentive spirometer, coughing/deep breathing exercises,ambulation.RETURN TO WORK - As directed by physician, please send any [facility] papers tophysician's pathology secretary/transcriptionist.SYMPTOMS TO NOTIFY MD - Fever, chills, nausea, vomiting, increased or severepain, heavy vaginal bleeding, foul smelling vaginal drainage, pain or swellingin extremities.URGENT SYMPTOMS - Call 911 or go to ER if any shortness of breath, difficultybreathing, or chest pain.HOW TO CONTACT PHYSICIAN - Physician's office phone number given to patient, ifafter hours patient instructed to call disposal operator and ask for the doctor configuration management architect.Patient and family have phone number to call 24 hours/day.Patient Evaluation: Verbalizes understandingPatient and/or family express understanding of upcoming surgery and theoperative process. Questions answered.Follow Up Plan: Follow up as directed by MD.Supplemental Material Given:Pre-operative teaching packet provided to the patient:INPATIENT/OUTPATIENT printed instructions; Post-operative instruction sheet,bowel prep instruction sheetFor questions contact: office at [phone] By Roxy Brantley RN [facility] Jason 01-18-2018 CNPMindy Telephone ([facility]) ----NE KEITA ([id number]) 1985 FDate Time Provider Department01/18/18 JILL FRAIRE (CELESTINE) [facility] During your visit today, we recorded the following information about you:Jill Fraire MD 01/18/2018 9:59 PM SignedPatient had CKC on 01/09/[address] Treadwell, [facility] 20cc.She had a large amount of bleeding earlier, called the ambulance. She waspassing blood clots. She denies any pain. She had an exam in the ED and therewas no active bleeding. Her bleeding has decreased. She feels some pressure nowbut no bleeding. Has been out of the ER x 3 hours.She was seen at [facility] ED. She had labwork but was not told anything abouther lab results. She was discharged to home. Reviewed bleeding precautions withher again, she agreeds to re-present to nearest ER if bleeding is severe.Jill Fraire MDGynecologic Oncology FellowCCF Smcfsztmm Mayhugh, RN, RN 01/20/2018 1:27 PM SignedSpoke with patient. She stated that she has had no further bleeding, just veryintermittent scant spotting. Aware of post op appointment on 01/29/2018. Alsoaware if bleeding begins again, local ER.Allergies As of Date: 01/18/2018(No Known Allergies)Date Reviewed: 01/09/2018Reviewed by: Ammy Gordon) MATIAS Meyers - Fully AssessedReason for Visit: Vaginal Bleeding [203]Prescriptions as of 01/18/2018 Sig: IBUPROFEN 600 MG TABLET Take 1 tablet by mouth every * DOCUSATE SODIUM 100 MG CAPSULE Take 1 capsule by mouth twice* MULTI VITAMIN ORAL Take by mouth once daily. FLUOXETINE 40 MG CAPSULE Take 40 mg by mouth once lynn* MELOXICAM 7.5 MG TABLET Take 7.5 mg by mouth once alexandre* ARIPIPRAZOLE 10 MG TABLET Take 10 mg by mouth once lynn* ALPRAZOLAM 1 MG TABLET Take 1 mg by mouth as needed.* DEXTROAMPHETAMINE-AMPHETAMIN E* Take 30 mg by mouth once lynn* GABAPENTIN 300 MG CAPSULE Take 300 mg by mouth three ti*Problem List As Of Date 01/18/2018 Noted Resolved IDIOPATHIC SCOLIOSIS [M41.20] INVALID FOR* LUMBAGO [M54.5] INVALID FOR* Chronic pain syndrome [G89.4] INVALID FOR* History of scoliosis [Z87.39] INVALID FOR* Thoracic back pain [M54.6] INVALID FOR* History of noncompliance with medical treatment*INVALID FOR* Myalgia and myositis, unspecified [[id number]] INVALID FOR* LUCAS III (cervical intraepithelial neoplasia gra*INVALID FOR* More... Morbid obesity (HCC) [E66.01] INVALID FOR* Tobacco abuse [Z72.0] INVALID FOR* Status:Closed by JILL FRAIRE MD on 01/18/18 [facility] ANES Jeaneth 01-09-2018 ANES POST HNO ID: [id number] thor: Matthew Landaverde VeberService: AnesthesiologyAuthor Type: AnesthesiologistType: Anesthesia PostOpFiled: 01/09/2018 1:13 PMNote Text:POST ANESTHESIA EVALUATION NOTESERVICE DATE: 01/09/2018SERVICE TIME: 1309DOB: 1985Vitals: 01/10/1812Temp: 36.2 ?C (97.2 ?F) 36.7 ?C (98.1 ?F) 01/10/1812P: 107/78 136/80 126/79 134/93 01/10/1812Pulse: 81 80 68 84 0301/10/1812Resp: 18 20 20 28 01/10/1812SpO2: 98% 95% 97% 92%Validated Vital Signs: YesPOST ANES STATUS: No apparent anesthetic complications. The patient isappropriately hydrated with stable respiratory and cardiovascular status.Patient has safe and adequate airway control. The patient has appropriatepain relief and no significant post operative nausea or vomiting. Thepatient has achieved baseline mental status.She was an easy mask ventilation but difficult intubation with directlaryngoscopy. Glidescope was also difficult because of anterior larynx andacute angle of OETT. She was intubated on one attempt with directlaryngoscopy and bougie. Post op she has no symptom of sore throat. Shewas given a difficult intubation letter and she understands and has noquestions.Further assessment by Anesthesia Service: NoneOther Remarks:SIGNATURE: Matthew Valderrama MD PATIENT NAME: Ne VitalioDATE: January 09, 2018 : 1:08 PM PAGER/CONTACT #: [phone] [facility] ANES PREOPon 01-09-2018 ANES PREOP HNO ID: [id number] thor: Matthew Burrellervice: AnesthesiologyAuthor Type: AnesthesiologistType: Anesthesia PreOpFiled: 01/09/2018 10:37 AMNote Text:REGIONAL ANESTHESIOLOGY DAY OF SURGERY NOTEPATIENT NAME: Ne VitalleninMRN: [id number]: 1985Procedure(s) (LRB):BIOPSY CERVICAL CONE COLD KNIFE (N/A)ENDOCERVICAL CURETTAGE (N/A)Surgeon(s):Mary TreadwellEstimated body mass index is 43.6 kg/(m2) as calculated from thefollowing: Height as of 01/02/18: 162.6 cm (5' 4 ). Weight as of 01/02/18: 115.2 kg (254 lb).ASA Class: 2 obese, smokerAdequate NPO status: YesAllergies:ALLERGIESNo Known AllergiesAirway Assessment: MP 2; Neck ROM: Full ROM without neurologic symptoms;Airway Evaluation: Thick neck and Small Mouth OpeningDentition: Teeth intactSymptoms of Sleep Apnea: DeniesMost recent lab results:Hemoglobin 14.9 01/02/2018Hematocrit 46.5 01/02/2018Potassium 4.0 01/02/2018Platelet Count 292 01/02/2018PT Sec 10.9 04/25/2017APTT 26.5 04/25/2017PT INR 1.0 04/25/2017Creatinine 0.55 01/02/2018EKG:normal EKG, normal sinus rhythmVitals: 9 903BP: 107/78Pulse: 81Resp: 18Temp: 36.2 ?C (97.2 ?F)TempSrc: Temporal ArterySpO2: 98%Previous Anesthesia: No history of adverse event Family history ofanesthetic problems: NoneAdditional Physical Exam:Lungs: Lungs clear to auscultation. Good diaphragmatic excursion.Patient health status unchanged since recent history and physical. Seehistory and physical for exam findings.Cardiac: Normal S1 and S2; no rubs, no murmurs and no gallopsPatient health status unchanged since recent history and physical. Seehistory and physical for exam findings.Additional pertinent findings: noneOther Medical Problems/ Important Considerations:Denies chest pain and SOB with exertion.Denies GERD.Chronic Beta Ailyn medication administered within 24 hours: N/AAnesthetic risks, benefits, alternatives, personnel and consent discussed:YesPatient agrees to proceed: YesBlood Products: Will accept Blood/Blood ProductsAnesthetic Plan: General LMA; Standard ASA MonitorsPain Management Plan: Parenteral or OralEPIC Chart ReviewACTIVE PROBLEM LISTScoliosis (And Kyphoscoliosis), IdiopathicLumbagoChronic Pain SyndromeHistory of ScoliosisThoracic Back PainHistory of Noncompliance With Medical TreatmentMyalgia and Myositis, UnspecifiedCin Iii (Cervical Intraepithelial Neoplasia Grade Iii) With SevereDysplasiaMorbid Obesity (Hcc)Tobacco AbusePAST MEDICAL HISTORYDiagnosis Date- Adjustment disorder with depressed mood- Cancer (HCC) cervix- 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- Convulsions in - Other anxiety states- Severe dysplasia of cervixPAST SURGICAL HISTORYProcedure Laterality Date- LAMINECTOMY,LUMBAR 03/24/1998 scoliosis surgery; put in 2 metal rods (ZUNIGA RODS)- TUBAL LIGATION HX clips- VAGINOSCOPYFAMILY HISTORYProblem Relation Age of Onset- Breast Cancer Maternal Grandmother at age 39- Breast Cancer Maternal Aunt Many cousins also had breast cancer- Cancer Mother Ovarian cancer ; living and wellSocial History:Social HistorySubstance Use Topics- Smoking status: Current Every Day Smoker Packs/day: 0.75 Years: 20.00 Types: Cigarettes- Smokeless tobacco: Never Used- Alcohol use NoNo current facility-administered medications on file prior to encounter.Current Outpatient Prescriptions on File Prior to Encounter:FLUoxetine HCl (PROZAC) 40 mg capsule Take 40 mg by mouth once daily.meloxicam (MOBIC) 7.5 mg tablet Take 7.5 mg by mouth once daily.ARIPiprazole (ABILIFY) 10 mg tablet Take 10 mg by mouth once daily.ALPRAZolam (XANAX) 1 mg tablet Take 1 mg by mouth as needed.Amphetamine-Dextroamp hetamine (ADDERALL) 30 mg tablet Take 30 mg by mouthonce daily.gabapentin (NEURONTIN) 300 mg capsule Take 300 mg by mouth three timesdaily.Inpatient medications reviewed in [facility].I have interviewed and examined the patient. I have reviewed the medicalrecord and/or the pre-anesthesia evaluation, pertinent labs, and testresults.Significant changes in the patient's condition since the History andPhysical, not otherwise documented in primary service progress notes: NoThis contains updated information obtained within 48 hours ofSurgery/Procedure.SIGNATUR E: Matthew Valderrama MD PATIENT NAME: Ne VitalioDATE: January 09, 2018 : 10:36 AM PAGER/CONTACT #: [facility] BRIEF OP NOTon 01-09-2018 BRIEF OP NOT HNO ID: [id number] thor: Demetrio Kunzice: Gynecology OncologyAuthor Type: PhysicianType: Brief Op NoteFiled: 01/09/2018 12:11 PMNote Text:BRIEF OP NOTELOG ID: [id number]/Procedure Date: 01/09/2018Incision/Procedure Start Time: 11:42 AMIncision Close/Procedure End Time: 12:08 PMSurgeon(s)/Proceduralist(s ) and Auto Rental Clerk(s):Surgeon(s) and Role: * Mary Treadwell - Primary * Demetrio Tuttle - Fellow * Vandana Irizarry - Resident - AssistingProcedure(s): CKC, ECCAnesthesia: GeneralFindings: Large cervix, ectropion. 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 [D06.9]SIGNATURE: Demetrio Tuttle MD PATIENT NAME: Ne CarranzaATE: January 09, 2018 : 12:10 PM PAGER/CONTACT #: [phone] [facility] NURSING PROGon 01-09-2018 NURSING PROG HNO ID: [id number] thor: Ammy (Rn) FRANK Meyerservice: NursingAuthor Type: Registered NurseType: Nursing Progress NoteFiled: 01/09/2018 8:02 PMNote Text:PATIENT EDUCATION TOPIC: PROCEDURE / SURGERY: Post-op Teaching: SymptomManagementREADINESS TO LEARNCOGNITIVE ABILITY: Alert and orientedMOTIVATION TO LEARN: InterestedFAMILY SUPPORT: High - Very involved in pt careINSTRUCTION PROVIDED TO: Patient and family memberPATIENT LEARNS BEST BY: Individual InstructionWritten Instruction - Hand-outsVerbal InstructionFACTORS AFFECTING LEARNING: NonePHYSICAL LIMITATIONS AFFECTING LEARNING: NoneLEARNING RESPONSEPATIENT/FAMILY RESPONSE: Information received as demonstrated byinterest and questionsMETHOD OF INSTRUCTION: Teachback, Individual instructionWritten instruction - handoutsVerbal instruction including teachbackFOLLOW-UP PLAN: Patient instructed to call with any further issues,Will receive a follow up phone call, and contact information given.INSTRUCTIONAL AIDS USED: NASUPPLEMENTAL MATERIAL PROVIDED TO PATIENT: Post op dischargeinstructions. [facility] OPERATIVE NOon 01-09-2018 OPERATIVE NO HNO ID: [id number] thor: Mary Reyezervice: Gynecology OncologyAuthor Type: PhysicianType: Operative ReportFiled: 01/09/2018 6:59 PMNote Text:OPERATIVE/PROCEDURE REPORTLOG ID: [id number]/Procedure Date: 01/09/2018Incision/Procedure Start Time: 11:42 AMIncision Close/Procedure End Time: 12:08 PMSurgeon(s)/Proceduralist(s ) and Auto Rental Clerk(s):Surgeon(s) and Role: * Mary Treadwell - Primary * Demetrio Tuttle - Fellow * Vandana (Emir) Juan C - Resident - AssistingNo Additional StaffProcedure(s):Cervical knife cone biopsy and ECC??Anesthesia: General??Operative Findings:Normal appearing cervix and vagina with no gross lesions.??Procedure Details:?After obtaining informed consent and formal surgical timeout , plannedanesthesia was initiated, The patient was placed on dorsal lithotomyposition using yellow stirrups, she was prepped and draped in a normalsterile fashion. The higgins catheter was used to drain the bladder. Thevagina was gently prepped to avoid damage to the superficial cervicalcells. A weighted speculum was inserted into the vagina and a Willam wasused to achieve exposure to the cervix. There were no visible lesion oncervix, squamocolumnar junction was visible. Approximately 10 mL of adilute solution (4 U of 0.05 U/mL of vasopressin in 100 mL of normalsaline) was injected into the cervical stroma and 0.25% marcaine was usedto perform a paracervical block with injection at 4:00 and 8:00 on thecervix. Then stay sutures were applied at 3:00 and 9:00 on the cervix andthis was used for stabilizing the cervix during the procedure. Thenuterine sound was placed through the cervical canal and was advanced tothe fundus of the uterus. The cervix was measured to be about 3.5-4?cm,and a number 11 blade scalpel was used to cut a cone-shaped piece ofcervix. The cervical cone length was approximately 2.5-3 cm. The specimenwas sent to pathology. Hemostasis was assured using a ball tip cautery.Hemostasis was excellent. By the end of the case, Monsel solution wasapplied on the cervix followed by surgicel and the stay sutures were tiedtogether to keep the surgicel in place. hemostasis was assured.Patient tolerated the procedure and all counts were correct x 2. Patienttransferred to the recovery room in a stable condition??Pre-Op/Pre-Proced ure Diagnosis:?Cervical dysplasia??Post-Op/Post-Proc edure Diagnosis:?Same ?Estimated Blood Loss:?20?mls??Specimens:?cer vical cone and ECC??Implantable Devices:?None??Drains:?None? ?Complications: None??I performed the procedure with assistance.SIGNATURE: Mary Treadwell MD PATIENT NAME: Ne VitalioDATE: January 09, 2018 : 6:58 PM PAGER/CONTACT #: [facility] PLAN OF CAREon 01-09-2018 PLAN OF CARE HNO ID: [id number] thor: Alla Robles (Charge Master Coordinator)Service: (none)Author Type: TechnicianType: Plan of CareFiled: 01/13/2018 9:36 AMNote Text:[employer] SUPERVISOR BEDSIDE DELIVERY SURVEY1. Patient to use [facility] Bedside Delivery - YES2. If fax, patient would like us to fax prescriptions to [facility] a. Pharmacy: b. Location: c. Phone:3. Insurance card on file - YES4. Credit card for payment - N/A [facility] SURGICAL PATHOLOGYon 018 SURGICAL PATHOLOGY [facility]: [id number] Physician: MARY TREADWELL MD FINAL DIAGNOSIS1. Cervix, cone biopsy (A) - High grade squamous intraepithelial lesion(LUCAS 3) with involvement of endocervical glands.- High grade squamous intraepithelial lesion focally extends to the inkedmargin of excision near the 7 o'clock position.2. Endocervical curettings (B) - Minute fragments of benign endocervicaltissue.SMS/kr 01/13/2018 Elvia Arce M.D.(Electronic Signature) SPECIME N SUBMITTEDA: CERVIX, CONE BIOPSY B: ENDOCERVICAL, CURETTINGS CLINICAL DATACERVICAL INTRAEPITHELIAL NEOPLASIA GRADE III WITH SEVERE DYSPLASIA GROSS DESCRIPTIONA. Received in formalin designated cervix is an oriented portion ofcervix that measures 2.5 x 2.4 x 2.2 cm. The ectocervix is granular. Thecervical os is fish-mouth. The resection margin is okeefe and granular. Thereis a suture that designates 12 o'clock. The specimen is inked as follows:12 o'clock blue; 6 o'clock green; endocervix orange. The specimen isserially sectioned in a clockwise manner from 1 to 12 o'clock to reveal tanand granular cut surfaces. The specimen is submitted in sequential orderfrom 1 o'clock to 12 o'clock in corresponding cassettes.B. Received in formalin designated endocervical curettings are multiplepink-okeefe hemorrhagic fragments of tissue that aggregate to 0.2 x 0.2 x 0.2cm. The specimen is entirely filtered in one cassette.WE/justin/01/09/18Gross examination performed at [place] [address] of Report: 01/15/2018Date of Procedure: 01/09/2018Date of Receipt: 01/09/2018Submitted by: MARY TREADWELL MDLocation: SORCD[place] [address]. [facility] Comment on above: Performed By: #### P ATHS ####[place] [address] NURSING PROGon 01-06-2018 NURSING PROG HNO ID: [id number] thor: Aura (Rn) Ada, FRANKervice: (none)Author Type: Registered NurseType: Nursing Progress NoteFiled: 01/06/2018 1:16 PMNote Text:01/06/18 1:00p.m. Notified Dr. Treadwell's office of WBC-14.07. Labs wereordered by her. MATIAS Coyne [facility] NURSING PROGon 01-02-2018 NURSING PROG HNO ID: [id number] thor: Madison (Rn) Chantel, RNService: (none)Author Type: Registered NurseType: Nursing Progress NoteFiled: 01/02/2018 3:38 PMNote Text:PACC Nurse Progress NoteHistory AND Physical:PACC Visit Date: 01/02/18 for anesthesiologist review.Original HANDP Date: 12/27/[address] Mathis visit Date: N/AOutside HANDP Scanned Date: N/ALabs Within Last 6 Months:CBC: Date 01/02/18, in processBMP/CMP: Date 01/02/18, in process.Imaging Within Last 12 Months:N/ACardiac Testing:EKG in last 12 Months: Yes: Date: 01/02/18, Comment: Awaiting confirmedread.Last Menstrual Period:LMP Date: 12/17/17Postmenopausal >1yr: No,S/P Hysterectomy: NoBMI Percentile (PEDS):N/ARisk Assessment:N/AAnesthesia Review:N/ANarrative:N/APre-o p Considerations:N/AChart Check:IN PROGRESS. CMP/CBC in process. Awaiting confirmed EKAris Golden RNMarch 2017 3:34 PM [facility] HOSPon 12-30-2017 HOSP Patient:Leonard Keita ndra DMRN: Height:5' 4 (1.626 m)Weight:254 lb (115.214 kg)Outpatient Medications as of 01/09/18:MULTIVIT-MINERALS/FE RROUS FUM (MULTI VITAMIN ORAL)FLUoxetine HCl (PROZAC) 40 mg capsulemeloxicam (MOBIC) 7.5 mg tabletARIPiprazole (ABILIFY) 10 mg tabletALPRAZolam (XANAX) 1 mg tabletAmphetamine-Dextroamph etamine (ADDERALL) 30 mg tabletgabapentin (NEURONTIN) 300 mg capsuleAdmission/Clinic Administered Medications as of 01/09/18:lidocaine 10 mg/mL (1 %) 1-2 mg injection (XYLOCAINE)lactated ringers infusionlactated ringers infusionmeperidine (PF) 12.5 mg injection (DEMEROL)albuterol 2.5 mg /3 mL (0.083 %) 2.5 mg (PROVENTIL)HYDROmorphone 0.2 mg injection (DILAUDID)fentaNYL 50 mcg/mL 50 mcg injection (SUBLIMAZE)ketorolac 30 mg injection (TORADOL)ondansetron 4 mg tab(s) (ZOFRAN)ondansetron (PF) 4 mg injection (ZOFRAN)prochlorperazine 10 mg injection (COMPAZINE)labetalol 5 mg injection (NORMODYNE)Problem List:Scoliosis (and kyphoscoliosis), idiopathic [M41.20]Lumbago [M54.5]Chronic pain syndrome [G89.4]History of scoliosis [Z87.39]Thoracic back pain [M54.6]History of noncompliance with medical treatment [Z91.19]Myalgia and myositis, unspecified [PND2215]LUCAS III (cervical intraepithelial neoplasia grade III) with severe dysplasia[D06.9]Morbid obesity (HCC) [E66.01]Tobacco abuse [Z72.0]Allergies:No Known AllergiesDate Verified:01/09/18Lab ValuesLab Value Units Date High LowPOTA* 4.0 mmol/L 01/02/2018 5.1 3.7HEMA* 46.5 % 01/02/2018 46.0 36.0Progress Notes ( PROVIDER ADULT):Rafal Lowe CNP 01/06/2018 2:21 PM SignedReceived [facility] at 14KScheduled for surgery this week w call and find out if patient having any abnormal sx/signs of infection?ThanksAntoinette Cha, RN, RN 01/06/2018 3:42 PM SignedCalled pt and she states she feels fineSays she had no fever at PATDenies cough, runny nose, congestion.Denies any s/sx of urinary infectionSays she feels great, just nervous about surgeryProgress Notes (MANAGER [facility]):Antoinette Cha, RN, RN 01/03/2018 1:21 PM SignedPre-op teachingProcedure: Cone bx, eccPhysician: Dr. Diazcation: [facility]: [phone] AND Time: 01/09/18MEDICAL CLEARANCE: No CARDIAC CLEARANCE: NoPRE ADMISSION TESTIN01/02/18THE FOLLOWING WAS EVALUATED Motivation To Learn: Eager Family/Significant Other Support: High - Very involved in pt care Cognitive Ability: Alert and orientedPatient Learns Best By: Individual InstructionWritten Instruction - Hand-outsVerbal InstructionThe Following Influencing Factors Were Barriers To This Education Session: NoneThe Following Physical Limitations Were Barriers To This Education Session:NoneInstruction Provided To: PatientMEDICATION INFORMATIONASPIRIN and ADVIL can make you more prone to bleeding after surgery. PleaseSTOP taking these medications at least (5) days before and for (3) days aftersurgery or procedure. Some common medications that contain ASPIRIN or act likeAspirin areTO BE AVOIDED:This is a list of the medications you should avoid: Advill Celebrex MotrinAggrenox Clinoril Naprosyn(naproxen)Agrylin NSAIDS Pepto-BismolAleve Ecotrin PersantineAlka-Royalton Excedrin PlaquenilAnacin Heparin PlavixAscriptin Herbals PletalAspergum Ibuprofen TiclidBayer Indocin TrentalBextra Midol VanquishBufferin Gingko Biloba Vitamin E (MVI)MEDICATIONS YOU MAY SUBSTITUTEAnacin 3 Fioricet * Tylenol with codeine *Darvocet N 100 * Plenadol Percocet *Datril Sine-Aide TylenolExcedrin PM(*Denotes prescription needed to obtain these medications)Learning Topic:Instructions reviewed for arrival time, parking and admission.Specific topics reviewed and discussed with all surgical patients include:No eating, drinking, or smoking after midnight prior to surgery.Medications as prescribed by anesthesia or the physician.Bowel Prep as indicated.Review of information contained in surgical packetPre-operative and intra-operative general activities were reviewed including:Holding Area, assessments, surgical positioning, and Family Waiting Area.Written post-operative instructions were given to the patient regarding post-opactivity, pain control, symptoms to report.Post-operative instructions provided and reviewed with patient/family:ACTIVITY - No heavy lifting (>5-10 lbs), no pushing/pulling, OK to climb stairsDRIVING - No driving while taking prescription pain medication, or within 24hours of anesthesia, OK to ride in a car.DIET - Advance diet as tolerated and as ordered by MD, drink 8 glasses of watera day, eat a diet high in protein and fiber unless otherwise directed by MD.CATHETER - Will be inserted during surgery, you may go home with a catheter. Ifyou go home with a catheter you will have to come back to the office for avoiding trial, UTI symptoms reviewed and patient instructed to notify MD of anyof these symptoms.INCISION CARE - Keep incision clean and dry, harjit to be removed 7-10 daysafter surgery, steristrips do not need to be removed by MDBATHING - OK to shower after surgery unless otherwise directed by MD, no tubbaths.PAIN MEDICATION - IV pain medication after surgery, IV COPYRIGHT CLERK if ordered by MD,discharged home with a prescription for PO pain medication, pain managementafter surgery, side effects of pain medication (including constipation,dizziness, drowsiness, and medication interactions).DVT PROPHYLAXIS - Early ambulation, SCDs, injectable anticoagulants (heparin,lovenox, etc)RESPIRATORY - Incentive spirometer, coughing/deep breathing exercises,ambulation.RETURN TO WORK - As directed by physician, please send any [facility] papers [facility] emergency[facility]'s pathology secretary/transcriptionist.SYMPTOMS TO NOTIFY MD - Fever, chills, nausea, vomiting, increased or severepain, heavy vaginal bleeding, foul smelling vaginal drainage, pain or swellingin extremities.URGENT SYMPTOMS - Call 911 or go to ER if any shortness of breath, difficultybreathing, or chest pain.HOW TO CONTACT PHYSICIAN - Physician's office phone number given to patient, ifafter hours patient instructed to call disposal operator and ask for the doctor configuration management architect.Patient and family have phone number to call 24 hours/day.Patient Evaluation: Verbalizes understandingPatient and/or family express understanding of upcoming surgery and theoperative process. Questions answered.Follow Up Plan: Follow up as neededSupplemental Material Given:Pre-operative teaching packet provided to the patient:INPATIENT/OUTPATIENT printed instructions; Post-operative instruction sheet,bowel prep instruction sheetFor questions contact: office at [phone] By Antoinette Cha RN [facility] HOSP Patient Update ([facility]PRAD) ----NE KEITA ( ) 1985 FDate Time Provider Department12/30/17 RAFAL LOWE (BRYANT) F[facility]PRAPino During your visit today, we recorded the following information about you:Allergies As of Date: 12/30/2017(No Known Allergies)Date Reviewed: 12/29/2017Reviewed by: Mary Treadwell - Fully AssessedOrder(s):SURGICAL REQUEST - ELECTIVE [[id number]] Order #: [id number]: 1Prescriptions as of 12/30/2017 Sig: FLUOXETINE 40 MG CAPSULE Take 40 mg by mouth once lynn* MELOXICAM 7.5 MG TABLET Take 7.5 mg by mouth once alexandre* ARIPIPRAZOLE 10 MG TABLET Take 10 mg by mouth once lynn* ALPRAZOLAM 1 MG TABLET Take 1 mg by mouth as needed.* DEXTROAMPHETAMINE-AMPHETAMIN E* Take 30 mg by mouth once lynn* GABAPENTIN 300 MG CAPSULE Take 300 mg by mouth three ti*Problem List As Of Date 12/30/2017 Noted Resolved IDIOPATHIC SCOLIOSIS [M41.20] INVALID FOR* LUMBAGO [M54.5] INVALID FOR* Chronic pain syndrome [G89.4] INVALID FOR* History of scoliosis [Z87.39] INVALID FOR* Thoracic back pain [M54.6] INVALID FOR* History of noncompliance with medical treatment*INVALID FOR* Myalgia and myositis, unspecified [[id number]] INVALID FOR* Status:Closed by RAFAL LOWE CNP on 12/30/17 [facility] Vital Signs Date Time Vital Sign Value Performing Clinician Facility 03-31-2024 03:20-0400 Diastolic blood pressure 65 mm[Hg] Services [facility] Work Phone: [facility] 03-31-2024 03:20-0400 Heart rate 62 /min Services [facility] Work Phone: [facility] 03-31-2024 03:20-0400 Respiratory rate 20 /min [facility] Work Phone: [facility] 03-31-2024 03:20-0400 SaO2% (BldA) [Mass fraction] 96 % [facility] Work Phone: [facility] 03-31-2024 03:20-0400 Systolic blood pressure 138 mm[Hg] [facility] Work Phone: [facility] 03-30-2024 23:43-0400 Body height 160.02 cm [facility] Work Phone: [facility] 03-30-2024 23:43-0400 Body temperature 97.9 [degF] [facility] Work Phone: [facility] 03-30-2024 23:43-0400 Body weight 133.6 kg [facility] Work Phone: [facility] 02-22-2024 21:57-0400 Body height 160.02 cm [facility] Work Phone: [facility] 02-22-2024 21:57-0400 Body temperature 98.7 [degF] [facility] Work Phone: [facility] 02-22-2024 21:57-0400 Body weight 132.6 kg [facility] Work Phone: [facility] 02-22-2024 21:57-0400 Diastolic blood pressure 93 mm[Hg] [facility] Work Phone: [facility] 02-22-2024 21:57-0400 Heart rate 82 /min [facility] Work Phone: [facility] 02-22-2024 21:57-0400 Respiratory rate 18 /min [facility] Work Phone: [facility] 02-22-2024 21:57-0400 SaO2% (BldA) [Mass fraction] 97 % [facility] Work Phone: [facility] 02-22-2024 21:57-0400 Systolic blood pressure 182 mm[Hg] [facility] Work Phone: [facility] 11-15-2023 19:15-0500 Diastolic blood pressure 78 mm[Hg] [facility] Work Phone: [facility] 11-15-2023 19:15-0500 Heart rate 84 /min [facility] Work Phone: [facility] 11-15-2023 19:15-0500 Respiratory rate 20 /min [facility] Work Phone: [facility] 11-15-2023 19:15-0500 SaO2% (BldA) [Mass fraction] 96 % [facility] Work Phone: [facility] 11-15-2023 19:15-0500 Systolic blood pressure 162 mm[Hg] [facility] Work Phone: [facility] 11-15-2023 16:51-0500 Body height 160.02 cm [facility] Work Phone: [facility] 11-15-2023 16:51-0500 Body temperature 97.7 [degF] [facility] Work Phone: [facility] 11-15-2023 16:51-0500 Body weight 128.9 kg [facility] Work Phone: [facility] 08-04-2023 18:16-0400 Body height 160.02 cm [facility] Work Phone: [facility] 08-04-2023 18:16-0400 Body temperature 98.1 [degF] [facility] Work Phone: [facility] 08-04-2023 18:16-0400 Body weight 125.4 kg [facility] Work Phone: [facility] 08-04-2023 18:16-0400 Diastolic blood pressure 84 mm[Hg] [facility] Work Phone: [facility] 08-04-2023 18:16-0400 Heart rate 81 /min [facility] Work Phone: [facility] 08-04-2023 18:16-0400 Respiratory rate 18 /min [facility] Work Phone: [facility] 08-04-2023 18:16-0400 SaO2% (BldA) [Mass fraction] 98 % [facility] Work Phone: [facility] 08-04-2023 18:16-0400 Systolic blood pressure 143 mm[Hg] [facility] Work Phone: [facility] 05-12-2023 18:32-0400 Heart rate 69 /min [facility] Work Phone: [facility] 05-12-2023 16:18-0400 Body height 160.02 cm [facility] Work Phone: [facility] 05-12-2023 16:18-0400 Body temperature 98.5 [degF] [facility] Work Phone: [facility] 05-12-2023 16:18-0400 Body weight 124.6 kg [facility] Work Phone: [facility] 05-12-2023 16:18-0400 Diastolic blood pressure 90 mm[Hg] [facility] Work Phone: [facility] 05-12-2023 16:18-0400 Respiratory rate 18 /min [facility] Work Phone: [facility] 05-12-2023 16:18-0400 SaO2% (BldA) [Mass fraction] 97 % [facility] Work Phone: [facility] 05-12-2023 16:18-0400 Systolic blood pressure 140 mm[Hg] [facility] Work Phone: [facility] 03-22-2023 10:30-0400 Body height 160.02 cm Bandar Hart Other [facility] Other 03-22-2023 10:30-0400 Body mass index (BMI) [Ratio] 47.82 kg/m2 Bandar Hart Other [facility] Other 03-22-2023 10:30-0400 Body weight 122.47 kg Bandar Hart Other [facility] Other 03-11-2023 15:30-0400 Body height 160.02 cm Frank Allengilberto Other [facility] Other 03-11-2023 15:30-0400 Body mass index (BMI) [Ratio] 47.82 kg/m2 Frank Tiffanyban Other [facility] Other 03-11-2023 15:30-0400 Body weight 122.47 kg Frank Alba Other [facility] Other 03-11-2023 15:30-0400 Diastolic blood pressure 81 mm[Hg] Kamkim Allenban Other [facility] Other 03-11-2023 15:30-0400 SaO2% (BldA) [Mass fraction] 95 % Kamkim Allenban Other [facility] Other 03-11-2023 15:30-0400 Systolic blood pressure 127 mm[Hg] Kamal Chaban Other [facility] Other 03-06-2023 01:13-0400 Diastolic blood pressure 66 mm[Hg] Services [facility] Phone: [facility] 03-06-2023 01:13-0400 Heart rate 72 /min Services [facility] Work Phone: [facility] 03-06-2023 01:13-0400 Respiratory rate 18 /min [facility] Work Phone: [facility] 03-06-2023 01:13-0400 SaO2% (BldA) [Mass fraction] 95 % Services [facility] Work Phone: [facility] 03-06-2023 01:13-0400 Systolic blood pressure 138 mm[Hg] [facility] Work Phone: [facility] 03-05-2023 22:55-0400 Body height 160.02 cm Services [facility] Work Phone: [facility] 03-05-2023 22:55-0400 Body temperature 98.1 [degF] [facility] Work Phone: [facility] 03-05-2023 22:55-0400 Body weight 124.2 kg Services [facility] Work Phone: [facility] 02-05-2023 12:36-0400 Diastolic blood pressure 88 mm[Hg] [facility] Work Phone: [facility] 02-05-2023 12:36-0400 Heart rate 80 /min [facility] Work Phone: [facility] 02-05-2023 12:36-0400 Respiratory rate 18 /min Services [facility] Work Phone: [facility] 02-05-2023 12:36-0400 SaO2% (BldA) [Mass fraction] 100 % Services [facility] Work Phone: [facility] 02-05-2023 12:36-0400 Systolic blood pressure 138 mm[Hg] [facility] Work Phone: [facility] 02-05-2023 10:42-0400 Body temperature 97.1 [degF] [facility] Work Phone: [facility] 02-05-2023 10:40-0400 Body height 160.02 cm Services [facility] Work Phone: [facility] 02-05-2023 10:40-0400 Body weight 122 kg [facility] Work Phone: [facility] 01-15-2023 02:26-0400 Diastolic blood pressure 59 mm[Hg] [facility] Work Phone: [facility] 01-15-2023 02:26-0400 Heart rate 69 /min [facility] Work Phone: [facility] 01-15-2023 02:26-0400 Respiratory rate 18 /min Services [facility] Work Phone: [facility] 01-15-2023 02:26-0400 SaO2% (BldA) [Mass fraction] 100 % Services [facility] Work Phone: [facility] 01-15-2023 02:26-0400 Systolic blood pressure 122 mm[Hg] [facility] Work Phone: [facility] 01-14-2023 21:31-0400 Body height 160.02 cm Services [facility] Work Phone: [facility] 01-14-2023 21:31-0400 Body temperature 98 [degF] Services [facility] Work Phone: [facility] 01-14-2023 21:31-0400 Body weight 122.6 kg Services [facility] Work Phone: [facility] 01-10-2023 22:30-0400 Diastolic blood pressure 67 mm[Hg] [facility] Work Phone: [facility] 01-10-2023 22:30-0400 Heart rate 75 /min [facility] Work Phone: [facility] 01-10-2023 22:30-0400 Respiratory rate 12 /min Services [facility] Work Phone: [facility] 01-10-2023 22:30-0400 SaO2% (BldA) [Mass fraction] 97 % Services [facility] Work Phone: [facility] 01-10-2023 22:30-0400 Systolic blood pressure 144 mm[Hg] Services [facility] Work Phone: [facility] 01-10-2023 20:11-0400 Body height 160.02 cm Services [facility] Work Phone: [facility] 01-10-2023 20:11-0400 Body temperature 98 [degF] Services [facility] Work Phone: [facility] 01-10-2023 20:11-0400 Body weight 125 kg Services [facility] Work Phone: [facility] 01-10-2023 14:15-0400 Diastolic blood pressure 80 mm[Hg] Services [facility] Work Phone: [facility] 01-10-2023 14:15-0400 Heart rate 80 /min Services [facility] Work Phone: [facility] 01-10-2023 14:15-0400 Systolic blood pressure 136 mm[Hg] Services [facility] Work Phone: [facility] 01-10-2023 13:38-0400 Body height 160.02 cm Services [facility] Work Phone: [facility] 01-10-2023 13:38-0400 Body temperature 98.1 [degF] Services [facility] Work Phone: [facility] 01-10-2023 13:38-0400 Body weight 123.75 kg Services [facility] Work Phone: [facility] 01-10-2023 13:38-0400 Respiratory rate 20 /min Services [facility] Work Phone: [facility] 01-10-2023 13:38-0400 SaO2% (BldA) [Mass fraction] 96 % Services [facility] Work Phone: [facility] 12-28-2022 00:21-0500 Diastolic blood pressure 64 mm[Hg] Services [facility] Work Phone: [facility] 12-28-2022 00:21-0500 Heart rate 87 /min Services [facility] Work Phone: [facility] 12-28-2022 00:21-0500 Respiratory rate 18 /min Services [facility] Work Phone: [facility] 12-28-2022 00:21-0500 SaO2% (BldA) [Mass fraction] 96 % Services [facility] Work Phone: [facility] 12-28-2022 00:21-0500 Systolic blood pressure 141 mm[Hg] Services [facility] Work Phone: [facility] 12-27-2022 21:35-0500 Body temperature 97.9 [degF] Services [facility] Work Phone: [facility] 12-27-2022 21:34-0500 Body height 160.02 cm Services [facility] Work Phone: [facility] 12-27-2022 21:34-0500 Body weight 115 kg Services [facility] Work Phone: [facility] 12-26-2022 01:08-0500 Body height 160.02 cm Services [facility] Work Phone: [facility] 12-26-2022 01:08-0500 Body temperature 98.1 [degF] Services [facility] Work Phone: [facility] 12-26-2022 01:08-0500 Body weight 123.1 kg Services [facility] Work Phone: [facility] 12-26-2022 01:08-0500 Diastolic blood pressure 80 mm[Hg] Services [facility] Work Phone: [facility] 12-26-2022 01:08-0500 Heart rate 82 /min Services [facility] Work Phone: [facility] 12-26-2022 01:08-0500 Respiratory rate 20 /min Services [facility] Work Phone: [facility] 12-26-2022 01:08-0500 SaO2% (BldA) [Mass fraction] 98 % Services [facility] Work Phone: [facility] 12-26-2022 01:08-0500 Systolic blood pressure 165 mm[Hg] Services [facility] Work Phone: [facility] 12-24-2022 14:01-0500 Body height 3718.56 cm Services [facility] Work Phone: [facility] 12-24-2022 14:01-0500 Body temperature 98.2 [degF] Services [facility] Work Phone: [facility] 12-24-2022 14:01-0500 Body weight 53 kg Services [facility] Work Phone: [facility] 12-24-2022 14:01-0500 Diastolic blood pressure 90 mm[Hg] Services [facility] Work Phone: [facility] 12-24-2022 14:01-0500 Heart rate 82 /min Services [facility] Work Phone: [facility] 12-24-2022 14:01-0500 Respiratory rate 18 /min Services [facility] Work Phone: [facility] 12-24-2022 14:01-0500 SaO2% (BldA) [Mass fraction] 94 % Services [facility] Work Phone: [facility] 12-24-2022 14:01-0500 Systolic blood pressure 155 mm[Hg] Services [facility] Work Phone: [facility] 12-06-2022 00:33-0500 Diastolic blood pressure 78 mm[Hg] Services [facility] Work Phone: [facility] 12-06-2022 00:33-0500 Heart rate 88 /min [facility] Work Phone: [facility] 12-06-2022 00:33-0500 Respiratory rate 19 /min Services [facility] Work Phone: [facility] 12-06-2022 00:33-0500 SaO2% (BldA) [Mass fraction] 98 % Services [facility] Work Phone: [facility] 12-06-2022 00:33-0500 Systolic blood pressure 125 mm[Hg] Services [facility] Work Phone: [facility] 12-05-2022 22:34-0500 Body height 160.02 cm Services [facility] Work Phone: [facility] 12-05-2022 22:34-0500 Body temperature 97.7 [degF] Services [facility] Work Phone: [facility] 12-05-2022 22:34-0500 Body weight 123 kg Services [facility] Work Phone: [facility] 09-24-2022 09:35-0500 Body height 160.02 cm Services [facility] Work Phone: [facility] 09-24-2022 09:35-0500 Body temperature 98.2 [degF] Services [facility] Work Phone: [facility] 09-24-2022 09:35-0500 Body weight 119.2 kg Services [facility] Work Phone: [facility] 09-24-2022 09:35-0500 Diastolic blood pressure 80 mm[Hg] Services [facility] Work Phone: [facility] 09-24-2022 09:35-0500 Heart rate 73 /min Services [facility] Work Phone: [facility] 09-24-2022 09:35-0500 Respiratory rate 16 /min Services [facility] Work Phone: [facility] 09-24-2022 09:35-0500 SaO2% (BldA) [Mass fraction] 97 % Services [facility] Work Phone: [facility] 09-24-2022 09:35-0500 Systolic blood pressure 144 mm[Hg] [facility] Work Phone: [facility] 09-13-2022 00:51-0500 Body height 160.02 cm Services [facility] Work Phone: [facility] 09-13-2022 00:51-0500 Body temperature 97.7 [degF] [facility] Work Phone: [facility] 09-13-2022 00:51-0500 Body weight 120.5 kg Services [facility] Work Phone: [facility] 09-13-2022 00:51-0500 Diastolic blood pressure 73 mm[Hg] [facility] Work Phone: [facility] 09-13-2022 00:51-0500 Heart rate 82 /min [facility] Work Phone: [facility] 09-13-2022 00:51-0500 Respiratory rate 20 /min Services [facility] Work Phone: [facility] 09-13-2022 00:51-0500 SaO2% (BldA) [Mass fraction] 99 % Services [facility] Work Phone: [facility] 09-13-2022 00:51-0500 Systolic blood pressure 145 mm[Hg] [facility] Work Phone: [facility] 09-07-2022 21:37-0500 Diastolic blood pressure 88 mm[Hg] [facility] Work Phone: [facility] 09-07-2022 21:37-0500 Heart rate 81 /min [facility] Work Phone: [facility] 09-07-2022 21:37-0500 Respiratory rate 17 /min Services [facility] Work Phone: [facility] 09-07-2022 21:37-0500 SaO2% (BldA) [Mass fraction] 97 % Services [facility] Work Phone: [facility] 09-07-2022 21:37-0500 Systolic blood pressure 168 mm[Hg] [facility] Work Phone: [facility] 09-07-2022 18:34-0500 Body height 160.02 cm Services [facility] Work Phone: [facility] 09-07-2022 18:34-0500 Body weight 118.6 kg Services [facility] Work Phone: [facility] 08-04-2022 22:25-0400 Body height 160.02 cm Services [facility] Work Phone: [facility] 08-04-2022 22:25-0400 Body temperature 98.2 [degF] [facility] Work Phone: [facility] 08-04-2022 22:25-0400 Body weight 118.55 kg Services [facility] Work Phone: [facility] 08-04-2022 22:25-0400 Diastolic blood pressure 58 mm[Hg] [facility] Work Phone: [facility] 08-04-2022 22:25-0400 Heart rate 74 /min Services [facility] Work Phone: [facility] 08-04-2022 22:25-0400 Respiratory rate 18 /min Services [facility] Work Phone: [facility] 08-04-2022 22:25-0400 SaO2% (BldA) [Mass fraction] 98 % Services [facility] Work Phone: [facility] 08-04-2022 22:25-0400 Systolic blood pressure 116 mm[Hg] Services [facility] Work Phone: [facility] 07-14-2022 23:00-0400 Diastolic blood pressure 66 mm[Hg] DO Stephanie Visci Work Phone: [facility] 07-14-2022 23:00-0400 Heart rate 87 /min DO Stephanie Visci Work Phone: [facility] 07-14-2022 23:00-0400 Respiratory rate 17 /min DO Stephanie Visci Work Phone: [facility] 07-14-2022 23:00-0400 SaO2% (BldA) [Mass fraction] 96 % DO Stephanie Visci Work Phone: [facility] 07-14-2022 23:00-0400 Systolic blood pressure 134 mm[Hg] DO Stephanie Visci Work Phone: [facility] 07-14-2022 22:00-0400 Body height 160.02 cm DO Stephanie Visci Work Phone: [facility] 07-14-2022 22:00-0400 Body temperature 98.8 [degF] DO Stephanie Visci Work Phone: [facility] 07-14-2022 22:00-0400 Body weight 119.7 kg DO Stephanie Visci Work Phone: [facility] 07-09-2022 14:55-0400 Diastolic blood pressure 66 mm[Hg] DO Stephanie Visci Work Phone: [facility] 07-09-2022 14:55-0400 Heart rate 89 /min DO Stephanie Visci Work Phone: [facility] 07-09-2022 14:55-0400 Respiratory rate 18 /min DO Stephanie Visci Work Phone: [facility] 07-09-2022 14:55-0400 SaO2% (BldA) [Mass fraction] 93 % DO Stephanie Visci Work Phone: [facility] 07-09-2022 14:55-0400 Systolic blood pressure 131 mm[Hg] DO Stephanie Visci Work Phone: [facility] 07-09-2022 14:35-0400 Inhaled oxygen flow rate 2 L/min DO Stephanie Visci Work Phone: [facility] 07-09-2022 10:10-0400 Body temperature 97.8 [degF] DO Stephanie Visci Work Phone: [facility] 07-09-2022 07:12-0400 Body height 160.02 cm DO Stephanie Visci Work Phone: [facility] 07-09-2022 07:12-0400 Body mass index (BMI) [Ratio] 46 kg/m2 DO Stephanie Visci Work Phone: [facility] 07-09-2022 07:12-0400 Body weight 118 kg DO Stephanie Visci Work Phone: [facility] 06-05-2022 00:30-0400 Diastolic blood pressure 63 mm[Hg] DO Stephanie Visci Work Phone: [facility] 06-05-2022 00:30-0400 Heart rate 60 /min DO Stephanie Visci Work Phone: [facility] 06-05-2022 00:30-0400 Respiratory rate 14 /min DO Stephanie Visci Work Phone: [facility] 06-05-2022 00:30-0400 SaO2% (BldA) [Mass fraction] 97 % DO Stephanie Visci Work Phone: [facility] 06-05-2022 00:30-0400 Systolic blood pressure 135 mm[Hg] DO Stephanie Visci Work Phone: [facility] 06-04-2022 21:24-0400 Body height 160.02 cm DO Stephanie Visci Work Phone: [facility] 06-04-2022 21:24-0400 Body temperature 98 [degF] DO Stephanie Visci Work Phone: [facility] 06-04-2022 21:24-0400 Body weight 118.05 kg DO Stephanie Visci Work Phone: [facility] 05-31-2022 13:59-0400 Diastolic blood pressure 79 mm[Hg] DO Stephanie Visci Work Phone: [facility] 05-31-2022 13:59-0400 Heart rate 69 /min DO Stephanie Visci Work Phone: [facility] 05-31-2022 13:59-0400 Respiratory rate 18 /min DO Stephanie Visci Work Phone: [facility] 05-31-2022 13:59-0400 SaO2% (BldA) [Mass fraction] 98 % DO Stephanie Visci Work Phone: [facility] 05-31-2022 13:59-0400 Systolic blood pressure 146 mm[Hg] DO Stephanie Visci Work Phone: [facility] 05-31-2022 11:46-0400 Body height 160.02 cm DO Stephanie Visci Work Phone: [facility] 05-31-2022 11:46-0400 Body temperature 98.5 [degF] DO Stephanie Visci Work Phone: [facility] 05-31-2022 11:46-0400 Body weight 122.46 kg DO Stephanie Visci Work Phone: [facility] 05-30-2022 12:00-0400 Diastolic blood pressure 79 mm[Hg] DO Stephanie Visci Work Phone: [facility] 05-30-2022 12:00-0400 Heart rate 74 /min DO Stephanie Visci Work Phone: [facility] 05-30-2022 12:00-0400 Respiratory rate 16 /min DO Stephanie Visci Work Phone: [facility] 05-30-2022 12:00-0400 SaO2% (BldA) [Mass fraction] 97 % DO Stephanie Visci Work Phone: [facility] 05-30-2022 12:00-0400 Systolic blood pressure 136 mm[Hg] DO Stephanie Visci Work Phone: [facility] 05-30-2022 08:00-0400 Body temperature 98.6 [degF] DO Stephanie Visci Work Phone: [facility] 05-29-2022 20:10-0400 Body height 160.02 cm DO Stephanie Visci Work Phone: [facility] 05-29-2022 20:10-0400 Body weight 121.1 kg DO Stephanie Visci Work Phone: [facility] 04-06-2022 22:33-0400 Body height 160.02 cm DO Stephanie Visci Work Phone: [facility] 04-06-2022 22:33-0400 Body mass index (BMI) [Ratio] 46.5 kg/m2 DO Stephanie Visci Work Phone: [facility] 04-06-2022 22:33-0400 Body temperature 98.4 [degF] DO Stephanie Visci Work Phone: [facility] 04-06-2022 22:33-0400 Body weight 119.3 kg DO Stephanie Visci Work Phone: [facility] 04-06-2022 22:33-0400 Diastolic blood pressure 87 mm[Hg] DO Stephanie Visci Work Phone: [facility] 04-06-2022 22:33-0400 Heart rate 82 /min DO Stephanie Visci Work Phone: [facility] 04-06-2022 22:33-0400 Respiratory rate 18 /min DO Stephanie Visci Work Phone: [facility] 04-06-2022 22:33-0400 SaO2% (BldA) [Mass fraction] 97 % DO Stephanie Visci Work Phone: [facility] 04-06-2022 22:33-0400 Systolic blood pressure 168 mm[Hg] DO Stephanie Visci Work Phone: [facility] Encounters Encounter Date Encounter Type Care Provider Facility Start: 05-07-2024 End: 05-07-2024 ambulatory STEPHANIE MCMAHAN Not Available Start: 03-31-2024 End: 03-31-2024 ambulatory FIONA RODRÍGUEZ Not Available Start: 03-30-2024 End: 03-31-2024 Emergency department patient visit Services [facility] Work Phone: [facility] Work Phone: Start: 02-22-2024 End: 02-22-2024 Emergency department patient visit Services [facility] Work Phone: [facility] Work Phone: Start: 02-19-2024 End: 02-19-2024 ambulatory Larissa Boston Astrid [facility] Work Phone: Start: 02-19-2024 End: 02-19-2024 Departed Referred DO Stephanie Mcmahan Work Phone: [facility] Start: 01-24-2024 End: 01-24-2024 ambulatory STEPHANIE Mcdaniel ROSALIOAdelita Not Available Start: 11-18-2023 End: 11-18-2023 ambulatory Radha Lagunas Other [facility] Other Start: 11-18-2023 Telephone encounter Radha Lagunas [facility] Start: 11-15-2023 End: 11-15-2023 Emergency department patient visit [facility] Work Phone: [facility] Work Phone: Start: 08-04-2023 End: 08-04-2023 Emergency department patient visit [facility] Work Phone: [facility] Work Phone: Start: 05-12-2023 End: 05-12-2023 Emergency department patient visit [facility] Work Phone: [facility] Work Phone: Start: 04-11-2023 End: 04-11-2023 ambulatory Bandar Hart Other [facility] Other Start: 04-11-2023 Telephone encounter [facility] Start: 03-22-2023 End: 03-22-2023 ambulatory Bandar Hart Other [facility] Other Start: 03-22-2023 Office outpatient ne w 45 minutes Bandar Hart [facility] Start: 03-11-2023 End: 03-11-2023 Patient encounter procedure Services [facility] Work Phone: [facility] Work Phone: Start: 03-11-2023 End: 03-11-2023 ambulatory [facility] Work Phone: [facility] Work Phone: Start: 03-11-2023 Office outpatient ne w 30 minutes Frank Tiffanygilberto [facility] Start: 03-07-2023 End: 03-08-2023 ambulatory ROXY JACOBSEN Facility:[facility] Start: 03-07-2023 End: 03-07-2023 Patient encounter procedure ROXY JACOBSEN [facility] Start: 03-05-2023 End: 03-06-2023 Emergency department patient visit [facility] Work Phone: [facility] Work Phone: Start: 03-04-2023 End: 03-04-2023 ambulatory [facility] Work Phone: [facility] Work Phone: Start: 03-04-2023 End: 03-04-2023 Patient encounter procedure Services [facility] Work Phone: [facility] Work Phone: Start: 02-21-2023 End: 02-21-[address] DONNA BREWER . Facility: Start: 02-05-2023 End: 02-05-2023 Emergency department patient visit Services [facility] Work Phone: [facility] Work Phone: Start: 01-14-2023 End: 01-15-2023 Emergency department patient visit [facility] Work Phone: [facility] Work Phone: Start: 01-14-2023 ambulatory ROXY DELMAR Facility : [place] Start: 01-10-2023 End: 01-10-2023 ambulatory Services [facility] Work Phone: [facility] Work Phone: Start: 01-10-2023 End: 01-10-2023 Patient encounter procedure Services [facility] Work Phone: [facility] [place] Work Phone: Start: 01-10-2023 End: 01-11-2023 Emergency department patient visit [facility] Work Phone: [facility] Work Phone: Start: 01-10-2023 End: 01-10-2023 Emergency department patient visit [facility] Work Phone: [facility] Work Phone: Start: 12-27-2022 End: 12-28-2022 Emergency department patient visit [facility] Work Phone: [facility] Work Phone: Start: 12-26-2022 End: 12-26-2022 Emergency department patient visit [facility] Work Phone: [facility] Work Phone: Start: 12-24-2022 End: 12-24-2022 Emergency department patient visit [facility] Work Phone: [facility] Work Phone: Start: 12-05-2022 End: 12-06-2022 Emergency department patient visit [facility] Work Phone: [facility] Work Phone: Start: 11-08-2022 End: 11-08-2022 ambulatory ELVIS BAZZI Facility: Start: 09-24-2022 End: 09-24-2022 ambulatory ANNETTE VALLADARES II Facility:[facility] Start: 09-24-2022 End: 09-24-2022 Emergency department patient visit Services [facility] Work Phone: [facility] Work Phone: Start: 09-13-2022 End: 09-13-2022 Emergency department patient visit Services [facility] Work Phone: [facility] Start: 09-07-2022 End: 09-07-2022 Emergency department patient visit Services [employer] [facility] Work Phone: [facility] Start: 08-04-2022 End: 08-05-2022 Emergency department patient visit Services [employer] Work Phone: [facility] Start: 07-14-2022 End: 07-15-2022 Emergency department patient visit DO Stephanie Visci Work Phone: [facility] Start: 07-09-2022 End: 07-09-2022 Admission to same day surgery center DO Stephanie Visci Work Phone: [facility] [place] Start: 07-05-2022 End: 07-05-2022 Patient encounter procedure DO Stephanie Visci Work Phone: [facility] [place] Start: 06-25-2022 End: 06-25-2022 Departed Referred DO Stephanie Visci Work Phone: [facility] Start: 06-25-2022 End: 06-25-2022 Patient encounter procedure DO Stephanie Visci Work Phone: [facility] Start: 06-04-2022 End: 06-05-2022 Emergency department patient visit DO Stephanie Visci Work Phone: [facility] Start: 05-31-2022 End: 05-31-2022 Emergency department patient visit DO Stephanie Visci Work Phone: [facility] Start: 05-29-2022 End: 05-30-2022 Evaluation and management of inpatient DO Stephanie Mcmahan Work Phone: [facility] Start: 05-29-2022 ambulatory Shellie Boone RN [employer] Comment on above: Ovarian Cyst; Vagina l Bleeding Start: 04-06-2022 End: 04-07-2022 Emergency department patient visit DO Stephanie Mcmahan Work Phone: [facility] Start: 04-10-2018 End: 04-10-2018 Ambulatory [facility] Start: 01-09-2018 End: 01-09-2018 [facility] Start: 05-27-2004 Evaluation and management of inpatient DO Stephanie Mcmahan Work Phone: [facility] Procedures Date Procedure Procedure Detail Performing Clinician Start: 03-31-2024 SARS-CoV-2, Influenz a & RSV (PCR) Services [employer] [facility] [employer] [facility] Phone: Start: 11-15-2023 CT of abdomen and pe lvis without contrast Services [facility] Phone: Start: 08-04-2023 SARS-CoV-2, Influenz a & RSV (PCR) Services [facility] Phone: Start: 05-12-2023 Plain chest X-ray [facility] [employer] [facility] [employer] [facility] Phone: Start: 05-12-2023 SARS Antigen (LFIA) Ser vices [employer] [facility] [employer] [facility] Phone: Start: 03-05-2023 X-ray of lumbar spin e, two or three views Services [facility] Phone: Start: 03-04-2023 Plain chest X-ray [facility] [employer] [facility] [employer] [facility] Phone: Start: 02-05-2023 SARS-CoV-2, Influenz a & RSV (PCR) Services [facility] Phone: Start: 02-05-2023 Plain chest X-ray Servi [employer] Phone: Start: 01-14-2023 CT of head without contrast Services [facility] Phone: Start: 01-14-2023 Plain chest X-ray Servi [employer] Phone: Start: 01-10-2023 Plain chest X-ray [facility] Phone: Start: 12-27-2022 CT angiography of thorax Services [facility] Phone: Start: 12-27-2022 Plain chest X-ray [facility] Phone: Start: 12-27-2022 SARS-CoV-2, Influenz a & RSV (PCR) Services [facility] Phone: Start: 12-05-2022 Computed tomography of abdomen and pelvis with contrast [facility] Phone: Start: 09-07-2022 Plain chest X-ray [facility] [place] [facility] Phone: Start: 08-04-2022 Plain X-ray of left elbow [facility] Phone: Start: 08-04-2022 X-ray of lumbar spin e, two or three views [facility] Phone: Start: 07-14-2022 X-ray of cervical spine [facility] Phone: Start: 07-09-2022 Laparoscopic-assiste d vaginal hysterectomy Services [facility] Phone: Start: 07-09-2022 OR V-NOTES, LAVH (No t Applicable) DO Stephanie Urlisti Work Phone: Cone biopsy ROXY JACOBSEN Hysterectomy ROXY JACOBSEN Ligation of fallopian tube J WASHINGTON JACOBSEN SARS Antigen (LFIA) DO Joceline rd Visci Work Phone: SARS Antigen (LFIA) DO Joceline rd Urlisti Work Phone: Plan of Treatment Date Care Activity Detail Author Start: 09-07-2025 HPV TESTING HPV TESTING [facility] Start: 09-07-2025 PAP TESTING PAP TESTING [facility] Start: 03-31-2024 [facility] Start: 03-31-2024 Plain chest X-ray XR chest 1V [facility] Start: 03-31-2024 XR Chest Single view [facility] Start: 08-04-2023 Plain chest X-ray XR chest 2V* [facility] Start: 08-04-2023 XR Chest 2 Views [facility] Start: 03-06-2023 [facility] Start: 03-05-2023 X-ray of lumbar spin e, two or three views XR lumbar spine 2-3V* [facility] Start: 03-05-2023 XR Lumbar spine 2 or 3 Views [facility] Start: 01-14-2023 CT of head without contrast CT head/brain wo con [facility] Start: 01-14-2023 CT Unspecified body region WO contrast [facility] Start: 01-14-2023 Plain chest X-ray XR chest 2V* [facility] Start: 01-14-2023 XR Chest 2 Views [facility] Start: 01-10-2023 Plain chest X-ray XR chest 1V [facility] Start: 01-10-2023 XR Chest Single view [facility] Start: 12-27-2022 CT angiography of thorax CT an cassie chest PE protocol [facility] Start: 12-27-2022 CT Chest [facility] Start: 12-27-2022 Plain chest X-ray XR chest 1V [facility] Start: 12-27-2022 XR Chest Single view [facility] Start: 12-05-2022 Computed tomography of abdomen and pelvis with contrast CT abdomen pelvis w con [facility] Start: 12-05-2022 CT Abdomen and Pelvi s W contrast IV [facility] Start: 08-04-2022 Plain X-ray of left elbow XR elbow L T min 3V* [facility] Start: 08-04-2022 X-ray of lumbar spin e, two or three views XR lumbar spine 2-3V* [facility] Start: 08-04-2022 XR Elbow - left GE 3 Views [facility] Start: 08-04-2022 XR Lumbar spine 2 or 3 Views [facility] Start: 07-14-2022 X-ray of cervical spine XR cervical spine 5V* [facility] Start: 07-14-2022 XR Cervical spine [address] [facility] Work Phone: Start: 07-09-2022 Hospital admission [facility] Start: 07-09-2022 [facility] Start: 06-28-2022 Influenza vaccination INFLUENZA (#1) [facility] Start: 06-25-2022 End: 06-25-2022 Patient encounter procedure Departed Clinical [facility]Ihbn[facility] Testing Start: 06-04-2022 End: 06-05-2022 Emergency department patient visit Departed Emergency [facility] Start: 05-30-2022 [facility] Start: 2003 Urine microalbumin profile DTAP,TDAP,TD (1 - Tdap) [facility] Start: 2002 [facility] Start: 2002 HIV SCREENING HIV SCREENING [facility] Start: 1996 Adult depression screening assessment DEPRESSION SCREENING [facility] Start: 1984 COVID-19 VACCINE (#1) COVID-19 VACCI NE (#1) [facility] Bilirubin measuremen t, urine [facility] Color of Urine [facility] Detection of hemoglobin [facility] Glucose [Mass/volume ] in Urine by Test strip [facility] Hepatitis A virus antibody, IgM type [facility] Hepatitis B core ant ibody measurement, IgM type [facility] Hepatitis B virus boyle rface Ag [Presence] in Serum or Plasma by Immunoassay [facility] Hepatitis C virus Ig G Ab [Presence] in Serum or Plasma by Immunoassay [facility] Hepatitis C virus RN A [log units/volume] (viral load) in Serum or Plasma by JUDIT with probe detection [facility] Hepatitis C virus RN A [Units/volume] (viral load) in Serum or Plasma by JUDIT with probe detection [facility] Measurement of keton es in urine using dipstick [facility] Patient Education [facility] Work Phone: Patient referral [facility] Work Phone: Protein measurement, urine [facility] Trichomonas vaginali s [Presence] in Unspecified specimen by Wet preparation [facility] Urinalysis, specific gravity measurement [facility] Urine dipstick for nitrite [facility] Urine dipstick for specific gravity [facility] Urine pH test [facility] Urobilinogen concentration, test strip measurement [facility] Payers Date Payer Category Payer Self-pay [id number] 2008 Medicaid [employer] [facility] MEDICAID [id number] 2008-Present [phone] [address] [place] [address] Medicaid [id number] 1984 Unknown [id number]. 593 1984 Unknown [id number] 2.840.1.106725.3.579.2. 593 1984 Unknown [id number] 2.16.840.1.218383.3.579.2. 727 1984 Unknown [id number] 2.16.840.1.004019.3.579.2. 727 1984 Unknown [id number] 2.16.840.1.052408.3.579.2. 1259 1984 Unknown [id number] 2.16.840.1.565954.3.579.2. 1259 1984 Unknown [id number] 2.16.840.1.423171.3.579.2. 1259 1959 Medicaid [id number] 1959 Medicaid [id number] Private Health Insurance [facility] [id number] Unknown Regular Auto/Liability [id number] Unknown [id number] 2.16.840. [id number] Unknown [id number] 2.16.840.1.796937.3.579.2. 531 Unknown [id number] 2.16.840.1.840205.3.579.2. 531 Unknown [id number] 2.16.840.1.403436.3.579.2. 531 Unknown [id number] 2.16.840.1.192023.3.579.2. 531 Unknown [id number] 2.16.840.1.584016.3.579.2. 531 Unknown [id number] 2.16.840.1.296469.3.579.2. 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) [facility] Start: 1984 Sex Assigned At Not on file [facility] Start: 06-25-2022 End: 03-31-2024 Tobacco smoking status NHIS Smoker (finding) [facility] Start: 1985 Sex Assigned At Female [facility] Start: 08-04-2022 Tobacco smoking status MNIS Ex-smoker (finding) [facility] Start: 10-28-1996 History of tobacco use [facility] Work Phone: Start: 02-28-2023 Tobacco smoking status Heavy tobacco smoker (finding) [facility] Tobacco smoking status Never [facility] Sex Assigned At Sex [facility] NEGATED: Highlighted row [facility] Goals Date Patient Goal Desired Activity /State Functional Status Date Assessment Result Facility 07-09-2022 Functional status Patient at Baseline [facility] Work Phone: Mental Status Date Assessment Result Facility 07-09-2022 Cognitive function Cognitive Sta tus Patient at Baseline [facility] Work Phone: Clinical Notes 05-29-2022 to 04-11-2023 Note Date & Type Note Facility 04-11-2023 Evaluation note Encounter Date Diagnosis Assessment Notes Mar, Patellofemoral pain syndrome of left knee (ICD-10 - M22.2X2) [facility] Other 05-26-2023 Evaluation note* Encounter Date Diagnosis Assessment Notes Treatment Notes Treatment Clinical Notes February, Patellofemoral pain syndrome of left knee (ICD-10 - M22.2X2) Ne presents with left patellofemoral syndrome. At this juncture we have discussed the findings and diagnosis as well as personally reviewed appropriate imaging and performed interpretation of related testing and examination with the patient in office today. Prior medical notes from [facility] and history have been reviewed. At this time I would recommend a trial of anti-inflammatories and prescribed a Medrol Dosepak. Also recommend physical therapy and possible bracing. We will plan for follow-up as needed. The patient has been involved in our cooperative treatment plan and agrees to move forward with treatment at this time. X-rays reviewed with patient today. We discussed the conservative treatment options which can be beneficial in relieving pain including gentle non-impact motion and quadriceps strengthening exercise as well as occasional use of non-steroidal anti-inflammatory medication. We discussed that this may be a termite treater problem. Prescription for Medrol dose pack provided today along with directions of use. An order for physical therapy was provided today. Activity as tolerated. February, Acute pain of left knee (ICD-10 - M25.562) February, Severe obesity (BMI >= 40) (ICD-10 - E66.01) Today we discussed obesity. I have informed the patient the amount of stress it applies to our musculoskeletal system as well as the axial and appendicular skeleton. They understand how this can affect joint function as well as joint pain. We discussed the range of BMI and the patient's BMI of >47. We discussed weight loss strategies through increased physical activity as well as decrease caloric intake. We offered referral for bariatric services. Our discussion is limited to 5 minutes. Patient is encouraged to follow proper diet, and increase exercise as tolerated. Patient verbalizes understanding and agreement. February, Other See orders for this visit as documented in the electronic medical record. [facility] Other 05-15-2023 Evaluation note* Encounter Date Diagnosis Assessment Notes Treatment Notes Treatment Clinical Notes February, Obstructive sleep apnea (ICD-10 - G47.33) Patient has a very high likelihood of severe obstructive sleep apnea based on her symptoms, overweight status, and oropharyngeal findings on exam. The diagnosis of obstructive sleep apnea, treatment with CPAP, the importance of weight loss, were all discussed today at length. We will proceed with a split-night and laboratory study and will continue to follow afterwards [facility] Other 03-20-2023 Hospital Discharge instructions Follow Up Care 01/14/2023 12:40:33 With:ROXY JACOBSEN PA-C, URL Address: [address] [place] [address]. [place] [address] When: Unknown [facility] 08-03-2022 Progress note Author Stephanie Mcmahan [facility] May 30, 2022 9:04am Note Date/Time May 30, 2022 9:0 4am [facility] [address] [place] [id number] FELT CEMENTER Progress Note Signed Patient: Ne Keita MR#: [id number] : 1985 Acct:[id number] Age/Sex: 36 / F Adm Date: 2 Loc: 3S Room: [address] [place] [address] Type: ADM INOo Attending Dr: Stephanie Mcmahan DO Copies to: ~ Date of Service: 05/30/2022 MANAGER LOAN - PN: Subj Data Subjective History of Present Illness: Waleska is a 36-year-old female who was admitted through the emergency room late last evening for observation due to reported heavy vaginal bleeding. Waleska is a patient of mine who scheduled for hysterectomy next month. She has been noncompliant in the past with our treatment plans. Apparently yesterday she began bleeding heavily and passed 2 clots the size of a fox. [facility] and I was called. I asked if she was a smokerand they said no when I instructed them to put her on a control pill 3 times daily, Motrin and ferrous sulfate. She left the ER and says she could notfill her meds so she continued with having came to [facility] ER. The emergency room doctor called and said he felt that her vitals were stable and her hemoglobin was stable when she could go home but she refused. We talked with her on the phone around midnight and she was describingvery heavy bleeding with passage of large clots telling me she was soaking her pads and closing that the bathroom flow full of blood. We decided to admit her for observation and I evaluated her this morning and she is having minimal bleeding. Her vitals have remained stable. Her hemoglobin around midnight lastnight was 11.3 and this is current pending. She is denying any acute symptoms of anemia. Incidentally she did test positive for COVID and is in isolation room currently. She is not having any significant COVID-related symptoms. MANAGER LOAN - PN: Obj Data Labs Labs: Laboratory Results - last 24 hr 05/29/22 05/30/22 23:00 00:05 Corrected WBC 8.0 Uncorrected WBC Count 8.0 RBC 4.68 Hgb 11.3 L Hct 36.0 MCV 77.0 L MCH 24.1 L MCHC 31.4 L RDW 16.9 H Plt Count 272 MPV 10.0 Neut % (Auto) 61.5 Lymph % (Auto) 29.8 [place] % (Auto) 6.3 Eos % (Auto) 1.4 Baso % (Auto) 1.0 Neut # (Auto) 4.9 Lymph # (Auto) 2.4 [place] # (Auto) 0.5 Eos # (Auto) 0.1 Baso # (Auto) 0.1 Nucleated RBC % (auto) 0.1 SARS Antigen (LFIA) Positive A MANAGER LOAN - Exam Physical Exam Vital signs: Temp 98.6 F 05/30/22 03:12 Pulse 63 05/30/22 03:12 Resp 18 05/30/22 03:12 BP 118/71 05/30/22 03:12 Pulse Ox 95 05/30/22 03:12 O2 Del Method Room Air 05/30/22 03:12 Constitutional Constitutional: no acute distress Routine HEENT Exam Head: Present normocephalic and atraumatic ENT: Present mucous membranes moist Routine Respiratory Exam Respiratory: Present CTA bilaterally; Absent accessory muscle use Routine Cardiovascular Exam Cardiovascular: Present RRR, S1 and S2; Absent murmur Routine Abdominal Exam Comments: Abdomen is obese and soft. There is no unusual distention. She has no guarding, rigidity or rebound. Detailed Pelvic Exam Comments: Looking at her. Plan she is some dark blood but it is not completely saturated and there were no large clots seen. Routine Extremities Exam Extremities: Absent cyanosis, edema, calf tenderness, palpable cord or Santiago's sign Routine Skin Exam Skin: Present intact, dry and warm; Absent rash Routine Neurological Exam Neurological: Present alert Routine Psychiatric Exam Psychiatric: Present normal affect A&P Assessment and Plan (1) Menometrorrhagia: Status: Acute Plan: Waleska describes very heavy bleeding yesterday with passage of large blood clots. Her vital signs have remained stable and last evening her hemoglobin wasstable with her a.m. hemoglobin currently pending. On exam her bleeding is stable at this point. We are going to treat her with tranexamic acid 1000 mg IVas there were no p.o. doses available at the hospital. I am then going to starther on 1300 mg daily for total of 5 days. She has an appointment to see me in 2days in the office for an ultrasound and an office visit. She is to continue with 600 mg of Motrin every 6 hours as needed. I have encouraged her to start ferrous sulfate 325 mg once well. (2) Chronic pelvic pain in female: Status: Acute (3) Adenomyosis: Status: Acute (4) COVID-19: Status: Acute Plan: COVID-positive but at this point asymptomatic Time Spent with Patient Time Spent With Patient (min): 30 Documented By: Stephanie Mcmahan DO 05/30/22 0805 Signed By: <Electronically signed by Stephanie Mcmahan DO> 05/30/22 0904 [facility] Work Phone: [phone]) 668-478808-02-2022 Miscellaneous Notes* Telephone Encounter - Shellie Boone RN - 05/29/2022 11:48 PM EDT is currently in the ER being seen for vaginal bleeding. stated [facility] is [facility]. Pt is passing large clots and the blood is pouring out. He is frustrated because they want to send her home on hormones. Did advise he speak to her FELT CEMENTER. Pt just advise him that she did speak the Dr and they are going to admit her. [facility] NoteEducation Materials Obstetrics and Gynecology Abnormal Uterine Bleeding Abnormal uterine bleeding means bleeding more than usual from your womb (uterus). It can include: ? Bleeding between menstrual periods. ? Bleeding after sex. ? Bleeding that is heavier than normal. ? Menstrual periods that last longer than usual. ? Bleeding after you have stopped having your menstrual period (menopause). There are many problems that may cause this. You should see a doctor for any kind of bleeding that is not normal. Treatment depends on the cause of the bleeding. Follow these instructions at home: Medicines ? Take unhj-ivm-briishj and prescription medicines only as told by your doctor. ? Tell your doctor about other medicines that you take. ? If told by your doctor, stop taking aspirin or medicines that have aspirin in them. These medicines can make you bleed more. ? You may be given iron pills to replace iron that your body loses because of this condition. Take them as told by your doctor. Managing constipation If you are taking iron pills, you may have trouble pooping (constipation). To prevent or treat trouble pooping, you may need to: ? Drink enough fluid to keep your pee (urine) pale yellow. ? Take vkma-oih-svigxts or prescription medicines. ? Eat foods that are high in fiber. These include beans, whole grains, and fresh fruits and vegetables. ? Limit foods that are high in fat and sugar. These include fried or sweet foods. General instructions ? Watch your condition for any changes. ? Do not use tampons, douche, or have sex, if your doctor tells you not to. ? Change your pads often. ? Get regular exams. This includes pelvic exams and cervical cancer screenings. ? It is up to you to get the results of any tests that are done. Ask your doctor, or the departmentthat is doing the tests, when your results will be ready. ? Keep all follow-up visits as told by your doctor. This is important. Contact a doctor if: ? The bleeding lasts more than 1 week. ? You feel dizzy at times. ? You feel like you may vomit (nausea). ? You vomit. ? You feel light-headed or weak. ? Your symptoms get worse. Get help right away if: ? You pass out. ? You have to change pads every hour. ? You have pain in your belly. ? You have a fever or chills. ? You get sweaty. ? You get weak. ? You pass large blood clots from your vagina. Summary ? Abnormal uterine bleeding means bleeding more than usual from your womb (uterus). ? Any kind of bleeding that is not normal should be checked by a doctor. ? Treatment depends on the cause of the bleeding. ? Get help right away if you pass out, you have to change pads every hour, or you pass large blood clots from your vagina. This information is not intended to replace advice given to you by your health care provider. Make sure you discuss any questions you have with your health care provider. Document Revised: 08/16/2020 Document Reviewed: 08/16/2020 [employer] Patient Education ? 2020 [employer] Experience.[facility] Plan note No data available for this section [facility] Evaluation note* Diagnosis Onset Date Resolution Status Adenomyosis acute Chronic pelvic pain in female acute COVID-19 acute DUB (dysfunctional uterine bleeding) acute Menometrorrhagia acute [facility] Work Phone: Evaluation noteNo assessment information available [facility] Work Phone: Evaluation noteNo InformationNort Scioderm Other Hiskrjj general Narrative - Reported* Type Description Date Medical History chronic thoracic lumbar back helen n w/ insertion of rods Medical History scoliosis w/ s/p surgery 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 Medical History PTSD Medical History depression Medical History ADD Surgical History tubal ligation 2009 Surgical History lower thoracic and u pper lumbar spinal surgery w/ zuniga rods 1998 d/t scoliosis 1997 Hospitalization History 2000 Hospitalization History 2003 Hospitalization History 2005 Hospitalization History 2009 [facility] Other Histphp general Narrative - Reported* Type Description Date Medical History chronic thoracic lum bartenders pain w/ insertion of rods Medical History scoliosis w/ s/p surgery 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 Medical History PTSD Medical History depression Medical History ADD Surgical History tubal ligation 2009 Surgical History lower thoracic and u pper lumbar spinal surgery w/ zuniga rods 1997 d/t scoliosis 1997 Surgical History hysterectomy 06/2022 Hospitalization History 2000 Hospitalization History 2003 Hospitalization History 2005 Hospitalization History 2009 [facility] Other Hospital Discharge instructions Additional Instructions Follow-up with your primary care doctor Return to ED if develop worsening symptoms or [facility] Work Phone: Hospital Discharge instructions Additional Instructions Follow up with your primary care doctor Return to the ED if you develop worsening symptoms or concernsU[facility] Work Phone: Hospital Discharge instructions Additional Instructions Return for worsening symptoms Follow-up [facility] doctor[facility] Work Phone: Hospital Discharge instructions Additional Instructions Take Zofran as prescribed for nausea vomiting. Try to get at least 8 hours of sleep at night to help prevent recurrent symptoms. Follow-up with your PCP for recheck of your blood pressure within 5 to 7 days.[facility] Work Phone: Hospital Discharge instructions Additional Instructions Continue the ketorolac every 6 hours for pain take with food Continue your muscle relaxer as needed You can use ice warm moist heat to sore area whichever helps the best Gentle stretching Follow-up with your family doctor for recheck Return to the ER for more severe pain weakness in your leg loss of bladder bowel control high fever or any other concernsUc Health Work Phone: Hospital Discharge instructions Additional Instructions None of your tests were significantly abnormal tonight. There is nothing found that would explain your symptoms. We will have the tests that your doctor ordered added on to the blood drawn in the ED so these will be available for her. I agree with your doctor that you need a sleep apnea test. We had discussed this when you were here previously. There is no medication that I can give you to treat sleep apnea. You will need to have the test performed before any treatment can be prescribed. I cannot prescribe CPAP unless you have a sleep apnea test that shows that you need it. If you have any more questions, please call Dr. Paniagua tomorrow.[facility] Work Phone: Hospital Discharge instructions Additional Instructions No specific cause for your symptoms was confirmed tonight. Your description of the symptoms is consistent with possible nerve pain from your back, which we call a lumbar radiculopathy. I want you to follow-up with your doctor about this, because you may need more testing performed. Sometimes MRI or other tests are needed to make a diagnosis. If you have any swelling or other worrisome problems with your leg I do want you to come back.[facility] Work Phone: Hospital Discharge instructions Additional Instructions Use the albuterol inhaler 2 puffs every 4 hours as needed for wheezing cough shortness of breath Take the prednisone once a day for 4 more days Use the benzonatate up to 3 times a day as needed for cough Increase oral fluids Tylenol and/or ibuprofen for discomfort fever Follow-up with your family doctor for recheck Return to the ER for worsening shortness of breath chest pain high fever or any other concernsUc Health Work Phone: Hospital Discharge instructions Additional Instructions Take Motrin Tylenol as needed for recurrent headache. Apply the nystatin cream for yeast infection. Follow-up with Dr. Juarez for any ongoing symptoms.[facility] Work Phone: Progress note No data available for this section [facility] Amrit Summary Purpose Family History No Family History Records Found Relationship Condition Age at Onset Recorded Date/T justin Not Specified Epilepsy Unknown Chronic obstructive pulmonary disease Unk nown Sleep apnea Unknown Scoliosis Unknown Prediabetes Unknown Malignant neoplasm of ovary Unknown father Congestive heart failure Unknown Hypertension Unknown Relationship Condition Age at Onset Recorded Date/T justin Not Specified Epilepsy Unknown Chronic obstructive pulmonary disease Unk nown Sleep apnea Unknown Scoliosis Unknown Prediabetes Unknown Malignant neoplasm of ovary Unknown father Congestive heart failure Unknown Hypertension Unknown family member Unknown Overdose Unknown brother Unknown father History of stroke Unknown Heart disease Unknown grandparent Unknown Automobile accident Unknown grandparent Overdose Unknown Unknown grandparent Myocardial infarction Unknown Advance Directives No Advanced Directives Records FoundDocuments on File Type Date Recorded 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 Advance Directive(s) 08/22/2018 5:28 PM Advance Directive(s) 04/10/2018 6:43 AM Advance Directive Response Recorded Date/ Time Advance Directives No January 18 5:28pm Advance Directive Response Recorded Date/ Time Advance Directives No January 18 4:28pm Chief Complaint and Reason for Visit Chief Complaint ^ SOB, dizzy, cough, sore throat, fever & chills vaginal bleeding Head pressure,feeling cloudy Weakness Menorrhagia, Pelvic Pain, Pelvic Mass, Adenomyosis Reason for Visit Adenomyosis Chronic pelvic pain in female COVID-19 DUB (dysfunctional uterine bleeding) Menometrorrhagia Chief Complaint ^ vaginal bleeding Head pressure,feeling cloudy Weakness Menorrhagia, Pelvic Pain, Pelvic Mass, Adenomyosis D64.9 Reason for Visit Adenomyosis Chronic pelvic pain in female COVID-19 DUB (dysfunctional uterine bleeding) Menometrorrhagia Chief Complaint ^ vaginal bleeding Head pressure,feeling cloudy Weakness Menorrhagia, Pelvic Pain, Pelvic Mass, Adenomyosis D64.9 Menorrhagia, Pelvic Pain, Pelvic Mass, Adenomyosis Reason for Visit Adenomyosis Chronic pelvic pain in female COVID-19 DUB (dysfunctional uterine bleeding) Menometrorrhagia Chief Complaint ^ vaginal bleeding Head pressure,feeling cloudy Weakness Menorrhagia, Pelvic Pain, Pelvic Mass, Adenomyosis D64.9 Menorrhagia, Pelvic Pain, Pelvic Mass, Adenomyosis NECK/HEAD PAIN Reason for Visit Adenomyosis Chronic pelvic pain in female COVID-19 DUB (dysfunctional uterine bleeding) Menometrorrhagia Chief Complaint ^ vaginal bleeding Head pressure,feeling cloudy Weakness Menorrhagia, Pelvic Pain, Pelvic Mass, Adenomyosis D64.9 Menorrhagia, Pelvic Pain, Pelvic Mass, Adenomyosis NECK/HEAD PAIN back pain, L elbow pain Reason for Visit Adenomyosis Chronic pelvic pain in female COVID-19 DUB (dysfunctional uterine bleeding) Menometrorrhagia Chief Complaint ^ Menorrhagia, Pelvic Pain, Pelvic Mass, Adenomyosis D64.9 Menorrhagia, Pelvic Pain, Pelvic Mass, Adenomyosis NECK/HEAD PAIN back pain, L elbow pain cp Back Stiffness Chief Complaint ^ cp Back Stiffness lower back pain into hips R side pain Chief Complaint ^ R side pain rt hand middle finger lac, 12-24-22 @ home Chief Complaint ^ R side pain rt hand middle finger lac, 12-24-22 @ home Rt finger recheck Chief Complaint ^ R side pain rt hand middle finger lac, 12-24-22 @ home Rt finger recheck palpitations Chief Complaint ^ R side pain rt hand middle finger lac, 12-24-22 @ home Rt finger recheck palpitations rt leg pain,nki Chief Complaint ^ R side pain rt hand middle finger lac, 12-24-22 @ home Rt finger recheck palpitations rt leg pain,nki Fatigue, Heart flutters, Headache See order Chief Complaint ^ R side pain rt hand middle finger lac, 12-24-22 @ home Rt finger recheck palpitations rt leg pain,nki Fatigue, Heart flutters, Headache See order Chest Pain Chief Complaint ^ R side pain rt hand middle finger lac, 12-24-22 @ home Rt finger recheck palpitations rt leg pain,nki Fatigue, Heart flutters, Headache See order Chest Pain chest pressure, back pain Chief Complaint ^ R side pain rt hand middle finger lac, 12-24-22 @ home Rt finger recheck palpitations rt leg pain,nki Fatigue, Heart flutters, Headache See order Chest Pain chest pressure, back pain R06.02 Chief Complaint ^ rt hand middle finger lac, 12-24-22 @ home Rt finger recheck palpitations rt leg pain,nki Fatigue, Heart flutters, Headache See order Chest Pain chest pressure, back pain R06.02 rapid hr-rt ankle pain going into leg Chief Complaint ^ rt hand middle finger lac, 12-24-22 @ home Rt finger recheck palpitations rt leg pain,nki Fatigue, Heart flutters, Headache See order Chest Pain chest pressure, back pain R06.02 rapid hr-rt ankle pain going into leg g47.30 r06.83 f51.8 gasp/choke e66.9 Chief Complaint ^ chest congestion,feels foggy cough,chills,diarhea,fever Chief Complaint ^ bilat flank pain Chief Complaint ^ Need for hepatitis C screening test Chief Complaint ^ Z11.59 R pinky finger swelling, redness NKI Multiple Complaints Additional Source Comments INFORMATION SOURCE (unrecogn ized section and content) DATE CREATED AUTHOR 04/15/2018 [facility] DATE CREATED AUTHOR AUTHOR'S ORGANIZ ATION 04/18/2018 [facility] DATE CREATED AUTHOR AUTHOR'S ORGANIZ ATION 05/31/2022 [facility] DATE CREATED AUTHOR AUTHOR'S ORGANIZ ATION 09/24/2022 [facility] DATE CREATED AUTHOR AUTHOR'S ORGANIZ ATION 02/25/2023 [facility] DATE CREATED AUTHOR AUTHOR'S ORGANIZ ATION 03/09/2023 Khalil Mills [facility] DATE CREATED AUTHOR AUTHOR'S ORGANIZ ATION 04/15/2024 [facility] DATE CREATED AUTHOR AUTHOR'S ORGANIZ ATION 05/14/2024 [facility] EPIC Source Comments (unrecognize d section and content) In the event this informatio n is protected by the Federal Confidentiality of Alcohol and Drug Abuse Patient Records regulations: The Federal rules restrict any use of the information to criminally investigate or prosecute any alcohol or drug abuse patient.[facility] Reason for Visit (unrecogniz ed section and content) Reason Comments Ovarian Cyst Vaginal Bleeding Care Teams (unrecognized sec tion and content) Team Status: Active Member Role Status Dates Services Family Health Primary Care Provider Active Team Status: Active Member Role Status Dates Stephanie Mcmahan DO Attending Provider Active Team Status: Inactive Member Role Status Dates Services Family Health Primary Care Provider Active Nasir Garcia , Emergency Provider Active Team Status: Inactive Member Role Status Dates Services Family Health Primary Care Provider Active Cary Garcia PA-C Emergency Provider Active Team Status: Inactive Member Role Status Dates Services Family Health Primary Care Provider Active Jah Almonte Jr, MD Emergency Provider Active Carina Mendes DO RES Active Team Status: Inactive Member Role Status Dates Services Family Health Primary Care Provider Active Keith Oseguera DO Emergency Provider Active Team Status: Inactive Member Role Status Dates Services Family Health Primary Care Provider Active Rachell Vang , PLANT SENIOR MANAGER- Emergency Provider Active Networker Relationship Specialty Start Date End Date Annette Valladares SCOTTIE PCP - General Family Practice 04/05/17 Latonya Perkins MD [address] [facility] [address] [place] [id number] Referring FELT CEMENTER 04/05/17 Team Status: Inactive Member Role Status Dates Services Family Health Primary Care Provider Active Stephanie Mcmahan DO Attending Provider Active Team Status: Inactive Member Role Status Dates Services Family Health Primary Care Provider Active Farhat Castro DO Emergency Provider Active Renny Rivera DO RES Active Team Status: Inactive Member Role Status Dates Services Family Health Primary Care Provider Active Jesus Petersen DO Emergency Provider Active Team Status: Inactive Member Role Status Dates Services Family Health Primary Care Provider Active Jah Almonte Jr, MD Emergency Provider Active Stephanie Mcmahan DO Admit Provider, Attending Provider Active Team Status: Inactive Member Role Status Dates Larissa Resendiz APRN PAPER FOLDER-C Primary Care Provide r Active Stephanie Mcmahan DO Attending Provider Active Team Status: Active Member Role Status Dates Larissa Resendiz APRN PAPER FOLDER-C Primary Care Provide r Active Team Status: Inactive Member Role Status Dates Stephanie Mcmahan DO Attending Provider Active Larissa Resendiz APRN PAPER FOLDER-C Primary Care Provide r Active Team Status: Inactive Member Role Status Dates Farhat Castro DO Emergency Provider Active Charan Howell DO RES Active Services Family Health Primary Care Provider Active Team Status: Inactive Member Role Status Dates Services Family Health Primary Care Provider Active Renato Kumar MD Emergency Provider Active Team Status: Inactive Member Role Status Dates Services Family Health Primary Care Provider Active Jah Almonte Jr, MD Emergency Provider Active Team Status: Active Member Role Status Dates Services Family Health Primary Care Provider Active Jah Almonte Jr, MD Emergency Provider Active Team Status: Inactive Member Role Status Dates Services Family Health Primary Care Provider Active Larissa Resendiz APRN PAPER FOLDER-C Attending Provider A ctive Team Status: Inactive Member Role Status Dates Services Family Health Primary Care Provider Active Damien Rashid DO Emergency Provider Active Team Status: Inactive Member Role Status Dates Services Family Health Primary Care Provider Active Farhat Castro DO Emergency Provider Active Team Status: Inactive Member Role Status Dates Services Family Health Primary Care Provider Active Frank Willis MD Attending Provider Active Larissa Resendiz APRN NP-Tripp Referring Provider A ctive Team Status: Inactive Member Role Status Dates Services Family Health Primary Care Provider Active Mark Bar PA-C Emergency Provider Active Team Status: Active Member Role Status Dates Stephanie Mcmahan DO Attending Provider Active Sta rt: May 27, 2004 Team Status: Inactive Member Role Status Dates Services Family Health Primary Care Provider Active Start: November 15, 2023 End: November 15, 2023 Renato Kumar MD Emergency Provider Active Star t: November 15, 2023 End: November 15, 2023 Team Status: Inactive Member Role Status Dates Larissa Rseendiz APRN PAPER FOLDER-C Attending Provider A ctive Start: February 19, 2024 End: February 19, 2024 Team Status: Inactive Member Role Status Dates Services Family Health Primary Care Provider Active Start: February 22, 2024 End: February 22, 2024 Jay Greenwood PA-C Emergency Provider Active Start: February 22, 2024 End: February 22, 2024 Team Status: Inactive Member Role Status Dates Services Family Health Primary Care Provider Active Start: March 30, 2024 End: March 31, 2024 Keith Oseguera DO Emergency Provider Active Start: March 30, 2024 End: March 31, 2024 Goals (unrecognized section and content) Goals may be documented in a n alternate sectionGoals may be documented in an alternate sectionGoals may be documented in an alternate sectionGoals may be documented in an alternate sectionGoals may be documented in an alternate sectionGoals may be documented in an alternate sectionGoals may be documented in an alternate sectionGoals may be documented in an alternate sectionGoals may be documented in an alternate sectionGoals may be documented in an alternate section No data available for this sectionGoals may be documented in an alternate sectionNo InformationNo InformationNo InformationGoals may be documented in an alternate sectionGoals may be documented in an alternate sectionNo InformationGoals may be documented in an alternate sectionGoals may be documented in an alternate section FOR RECORDS PERTAINING TO PATIENTS WHO ARE OR HAVE BEEN ENROLLED IN A CHEMICAL DEPENDENCY/SUBSTANCEABUSE PROGRAM, SOME INFORMATION MAY BE OMITTED. This clinical summary was aggregated from multiple sources. Caution should be exercised in using it in the provision of clinical care. This summary normalizes information from multiple sources, and as a consequence, information in this document may materially change the coding, format and clinical context of patient data. In addition, data may be omitted in some cases. CLINICAL DECISIONS SHOULD BE BASED ON THE PRIMARY CLINICAL RECORDS. [employer]. provides no warranty or guarantee of the accuracy or completeness of information in this document.
--- NOTE | 2024-08-20 19:47 | XR_ITS ---
The [address] [address] Patient Name: NE DURHAM MRN: [id number] date: 1985 Sex: F Assigned Patient Location: ED.MAIN Current Patient Location: ER Accession/Order Number: [id number] Exam Date: 08/20/2024 20:08 Report Date: 08/20/2024 21:43 At the request of: ELVIS BAZZI Procedure: XR chest 2V EXAMINATION: XR chest 2V, , 08/20/2024 8:08 PM EDT INDICATION: cough HISTORY: Ordering Provider Reason for Exam: cough Technologist Note: Additional: COMPARISON: None. TECHNIQUE: Chest x-ray: Two views. FINDINGS: No pneumothorax, pleural effusion or focal airspace consolidation. Heart is normal in size. Fusion device is seen projecting over the thoracic spine. XR/XR chest 2V IMPRESSION: No acute cardiopulmonary process. Electronically authenticated by: JAM ALDRICH Date: 08/20/2024 21:43
[2024-08-20 20:30] LABS: Internal Control Within Normal Limits; Strep A Antigen Screen Negative
[2024-08-20 20:34] LABS: Influenza Virus A Antigen Negative; Influenza Virus B Antigen Negative; Internal Control Within Normal Limits; SARS-CoV-2 Ag NEGATIVE (NEGATIVE)
--- NOTE | 2024-08-20 21:18 | ED_ITS ---
HPI - URI/Sore Throat General Chief Complaint: Upper Respiratory Infection Stated Complaint: cough, diff breathing, body aches Time Seen by Provider: 08/20/24 21:07 Source: patient History of Present Illness HPI Narrative: patient presents complaining of shortness of breath. Daily cigarette smoker. Ill fo past 9 days. Increased sensation of dyspnea past 3 days. Frequent dry cough and chest is sore from coughing. No nausea or vomiting. Difficulty sleeping because she feels short of breath. 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 Related Data Home Medications ?Medication ?Instructions ?Recorded ?Confirmed alprazolam 1 mg tablet (Xanax) 1 mg PO BID PRN anxiety 05/23/24 08/20/24 dextroamphetamine-amphetamine 30 30 mg PO BID 05/23/24 05/23/24 mg tablet (Adderall) azithromycin 250 mg tablet 250 mg PO DAILY 08/20/24 08/20/24 metronidazole 0.75 % (37.5 mg/5 37.5 mg vaginal BID 08/20/24 08/20/24 gram) vaginal gel prednisone 50 mg tablet 50 mg PO DAILY 08/20/24 08/20/24 Previous Rx's ?Medication ?Instructions ?Recorded albuterol sulfate 90 mcg/actuation 2 inh inhalation Q4H PRN shortness 05/23/24 aerosol inhaler of breath or wheezing #8.5 grams albuterol sulfate 90 mcg/actuation 2 inh inhalation Q4H PRN shortness 05/23/24 aerosol inhaler of breath or wheezing #8.5 grams Allergies Allergy/AdvReac Type Severity Reaction Status Date / Time codeine Allergy Mild Rash Verified 05/11/23 22:53 Penicillins Allergy Unknown Verified 05/11/23 22:53 sulfamethoxazole (From AdvReac Mild itchy Verified 05/11/23 22:53 Bactrim) trimethoprim (From Bactrim) AdvReac Mild itchy Verified 05/11/23 22:53 Review of Systems ROS Status of ROS 10 or more systems reviewed and unremark able except as noted in history and below PFSH PFSH Social History Smoking status: Current every day smoker Exam Constitutional Vital Signs, click to edit/add: Last Vital Signs Temp 98.0 F 08/20/24 19:41 Pulse 82 08/20/24 22:00 Resp 18 08/20/24 22:00 BP 138/78 08/20/24 19:41 Pulse Ox 97 08/20/24 22:00 O2 Del Method Room Air 08/20/24 22:00 Common normals: no apparent distress, oriented x3, no limitations, healthy appearing, alert and well nourished [facility] Common normals: normocephalic and head/scalp atraumatic Eye Common normals: EOMs intact bilaterally and conjunctivae normal Respiratory Effort & inspection: audible wheezes Other: mod air movement Cardio Common normals: regular rate, regular rhythm, S1 normal heart sound and S2 norm al heart sound GI Common normals: Normal to inspection, nondistended, normoactive bowel sounds present, soft to palpation and non-tender Extremity Common normals: normal to inspection and full ROM Neuro Common normals: oriented x3, CN's II-XII intact bilaterally, moves all extremities and no focal motor deficits Psych Appearance: grossly normal Course Vital Signs Vital signs: Vital Signs Temperature 98.0 F 08/20/24 19:41 Pulse Rate 80 08/20/24 19:41 Respiratory Rate 22 H 08/20/24 19:41 Blood Pressure 138/78 08/20/24 19:41 Pulse Oximetry 97 08/20/24 19:41 Oxygen Delivery Method Room Air 08/20/24 19:41 Temperature 98.0 F 08/20/24 19:41 Pulse Rate 82 08/20/24 22:00 Respiratory Rate 18 08/20/24 22:00 Blood Pressure 138/78 08/20/24 19:41 Pulse Oximetry 97 08/20/24 22:00 Oxygen Delivery Method Room Air 08/20/24 22:00 MDM - URI/Sore Throat MDM Narrative Medical decision making narrative: patient presents complaining of shortness of breath. Chest tight with exp wheeze. cxray clear. Treated with solumedrol, levaquin and Duoneb. Rechecked and is now feeling better. 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 Discharged in improved condition Lab Data Labs: Lab Results 08/20/24 Range/Units 19:48 Influenza Type A Ag Negative Influenza Type B Ag Negative SARS-CoV-2 Ag (CV2AG) Negative (NEGATIVE) Streptococcus Screen Negative Imaging Data Chest x-ray: Radiologist's impression: ITS Impressions Chest X-Ray 08/20/24 19:47 IMPRESSION: No acute cardiopulmonary process. Electronically authenticated by: JAM ALDRICH Date: 08/20/2024 21:43 Discharge Plan Discharge Chief Complaint: Upper Respiratory Infection Clinical Impression: Bronchitis, Acute bronchitis with bronchospasm Patient Disposition: Home, Self-Care Prescriptions / Home Meds: No Action dextroamphetamine-amphetamine [Adderall] 30 mg tablet 30 mg PO BID Rx Instructions: administer doses at least 4-6 hours apart alprazolam [Xanax] 1 mg tablet 1 mg PO BID PRN (Reason: anxiety) albuterol sulfate 90 mcg/actuation HFA aerosol inhaler 2 inh inhalation Q4H PRN (Reason: shortness of breath or wheezing) Qty: 8.5 0 RF albuterol sulfate 90 mcg/actuation HFA aerosol inhaler 2 inh inhalation Q4H PRN (Reason: shortness of breath or wheezing) Qty: 8.5 0RF azithromycin 250 mg tablet 250 mg PO DAILY metronidazole 0.75 % (37.5mg/5 gram) gel 37.5 mg VAGINAL BID prednisone 50 mg tablet 50 mg PO DAILY Print Language: Greenlandic Instructions: Acute Bronchitis (ED), Wheezing (ED) Additional Instructions: start medication prescribed by your doctor tomorrow Referrals: Physician,Non-Staff, MD [Primary Care Provider] - 1 week
[2024-08-20] MEDS: METHYLPREDNISOLONE SOD SUCC PF 125 MG/2 ML VIAL IM (21:34)
[2024-08-20] MEDS: LEVOFLOXACIN 500 MG TABLET PO (21:34)
[2024-08-20 21:49] VITALS: PULSE 80; O2SAT 95
[2024-08-20] MEDS: IPRATROPIUM/ALBUTEROL SULFATE 3 ML AMPUL.NEB IH (21:55)
[2024-08-20 22:00] VITALS: PULSE 82; O2SAT 97
== END 2024-08-20 22:36 | disposition home or self-care (01) ==
PROVIDERS: Emergency Provider Internal Medicine
DX: J20.9 Acute bronchitis, unspecified (principal); F17.210 Nicotine dependence, cigarettes, uncomplicated; Z20.822 Contact with and (suspected) exposure to COVID-19
CPT/HCPCS: 71046; 87070; 87804; 87811; 87880; 94640; 96372; 99285; J2919

== ENCOUNTER 2024-11-29 15:09 | Emergency (ER) | payer OTHER, SELFPAY ==
[2024-11-29 15:12] VITALS: BP 181/109; PULSE 86; TEMP 36.7; O2SAT 96; BMI 51.7
--- NOTE | 2024-11-29 15:19 | ECG_ITS ---
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
--- NOTE | 2024-11-29 15:19 | XR_ITS ---
The [address] [address] Patient Name: NE DURHAM MRN: [id number] date: 1985 Sex: F Assigned Patient Location: ER Current Patient Location: ED.MAIN Accession/Order Number: [id number] Exam Date: 11/29/2024 15:45 Report Date: 11/29/2024 16:56 At the request of: MARRY PALOMO Procedure: XR chest 1V EXAM: CHEST 1 VIEW HISTORY: cough TECHNIQUE: Chest, one view. COMPARISON: 05/23/2024 FINDINGS: Lungs are clear. No focal consolidation, pleural effusion, or pneumothorax. Pulmonary vasculature is within normal limits. Cardiomediastinal silhouette is mildly enlarged. Stabilization rods noted in the thoracic to lumbar spine. XR/XR chest 1V IMPRESSION: 1. No acute cardiopulmonary disease. Electronically authenticated by: JOE WHITE Date: 11/29/2024 16:56
--- NOTE | 2024-11-29 15:19 | ED.GENADUL1 ---
HPI HPI - General Adult General Chief complaint: Abdominal Pain Stated complaint: sob upset stomach Time Seen by Provider: 11/29/24 15:14 History of Present Illness HPI narrative: Patient is a 39-year-old female who presents to the ER for evaluation of nausea diarrhea and abdominal pain. Patient states for the past 2 days she has had cough and generalized bodyaches she reports eating at [employer] yesterday and was notified via her mobile order that the food may have been contaminated as they had shut off the kitchen with anticipation of closing but then started it back up prior to her order. Patient denies any vomiting but states she has had 5 episodes of diarrhea today since learning this information. Her daughter also presents with similar symptoms of diarrhea since eating the food yesterday as well. 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 Mcmahan in [place] for Gynceology and denies any dysuria or other symtpoms from her baseline. ( He did cultures and everything, it is something I have had. Her abdominal pain since eating the [employer] has been mild and crampy Related Data Home Medications ?Medication ?Instructions ?Recorded ?Confirmed alprazolam 1 mg tablet (Xanax) 1 mg PO BID PRN anxiety 05/23/24 08/20/24 dextroamphetamine-amphetamine 30 30 mg PO BID 05/23/24 05/23/24 mg tablet (Adderall) azithromycin 250 mg tablet 250 mg PO DAILY 08/20/24 08/20/24 metronidazole 0.75 % (37.5 mg/5 37.5 mg vaginal BID 08/20/24 08/20/24 gram) vaginal gel prednisone 50 mg tablet 50 mg PO DAILY 08/20/24 08/20/24 Previous Rx's ?Medication ?Instructions ?Recorded albuterol sulfate 90 mcg/actuation 2 inh inhalation Q4H PRN shortness 05/23/24 aerosol inhaler of breath or wheezing #8.5 grams albuterol sulfate 90 mcg/actuation 2 inh inhalation Q4H PRN shortness 05/23/24 aerosol inhaler of breath or wheezing #8.5 grams dicyclomine 20 mg tablet 20 mg PO TID PRN abdominal pain 2 02/02/25 days #6 tabs ondansetron HCl 4 mg tablet 4 mg PO Q6H PRN nausea and 11/29/24 vomiting #12 tabs Allergies Allergy/AdvReac Type Severity Reaction Status Date / Time codeine Allergy Mild Rash Verified 05/11/23 22:53 Penicillins Allergy Unknown Verified 05/11/23 22:53 sulfamethoxazole (From AdvReac Mild itchy Verified 05/11/23 22:53 Bactrim) trimethoprim (From Bactrim) AdvReac Mild itchy Verified 05/11/23 22:53 Opioid HPI Opioid Management Most Recent Opioid Data: No Data to Display Review of Systems ROS Constitutional Reports: fever and chills Eyes Denies: change in vision or blurry vision Ears, nose, mouth, and throat Reports: nasal congestion and post nasal drip; Denies: throat pain, neck pain or throat swelling Cardiovascular Denies: chest pain, palpitations or edema Respiratory Reports: shortness of breath and cough; Denies: wheezing Gastrointestinal Reports: abdominal pain, nausea and diarrhea (x 5 ); Denies: vomiting or difficulty swallowing Genitourinary Denies: painful urination or urinary frequency Musculoskeletal Denies: back pain, neck pain or extremity pain Integumentary/Breast Denies: rash or itching Psychiatric Denies: anxiety Endocrine Denies: excessive urination Hematologic/Lymphatic Denies: easy bruising PFSH PFSH Social History Smoking status: Current every day smoker Little interest or pleasure in doing things: not at all Feeling down, depressed, or hopeless: not at all Exam Narrative Exam Narrative: Nurses notes and vital signs reviewed and patient is not hypoxic. General: The patient appears in no apparent distress sitting up and speaking in full sentences. Patient is resting comfortably on cart. Skin: Warm, dry, no pallor noted. no evidence of rash. Head: Normocephalic, atraumatic Neck: Supple, trachea mid-line, no tenderness, no lymphadenopathy Eye: Pupils are equal, round and reactive to light, EOMI Ears, Nose, Mouth, and Throat: Bilateral TM obscured by Cerumen. oral mucosa is moist, no posterior oropharynx erythema or hypertrophy, uvula is mid-line Cardiovascular: Regular Rate and Rhythm Respiratory: Patient is in no distress, no accessory muscle use, lungs are clear to auscultation, no wheezing, rales or rhonchi. Chest Wall: no tenderness Back: non-tender, no CVA tenderness Musculoskeletal: normal ROM, no tenderness, no swelling GI: Normal bowel sounds, obese abdomen with no tenderness to palpation, no masses appreciated. No rebound, guarding, or rigidity noted. Neurological: A&O x4 Psychiatric: Cooperative Constitutional Vital Signs, click to edit/add: Last Vital Signs Temp 98.0 F 11/29/24 15:12 Pulse 86 11/29/24 15:12 Resp 20 11/29/24 15:12 BP 118/64 11/29/24 16:29 Pulse Ox 96 11/29/24 15:12 O2 Del Method Room Air 11/29/24 15:12 Course Vital Signs Vital signs: Vital Signs Temperature 98.0 F 11/29/24 15:12 Pulse Rate 86 11/29/24 15:12 Respiratory Rate 20 11/29/24 15:12 Blood Pressure 181/109 H 11/29/24 15:12 Pulse Oximetry 96 11/29/24 15:12 Oxygen Delivery Method Room Air 11/29/24 15:12 Temperature 98.0 F 11/29/24 15:12 Pulse Rate 86 11/29/24 15:12 Respiratory Rate 20 11/29/24 15:12 Blood Pressure 118/64 11/29/24 16:29 Pulse Oximetry 96 11/29/24 15:12 Oxygen Delivery Method Room Air 11/29/24 15:12 Medical Decision Making [facility] Narrative Medical decision making narrative: Patient presents with 2 days of upper respiratory symptoms concerning for influenza and now onset of diarrhea after eating reportedly possibly bad food from [employer]. Patient states she was notified by phone from [employer] of the potential contamination. She has had 5 episodes of diarrhea today and feels generally weak. Patient be given IV fluids, Zofran for nausea treated symptomatically with lab work checked along with influenza swab and COVID swab given her preceding symptoms. 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 Patient declined Tylenol and Bentyl. She is agreeable to Bentyl prescription for abdominal discomfort at home along with Zofran. Recommend close follow-up to her family doctor for reevaluation of symptoms patient requesting prescription of Flagyl refill recommend she get this through her BOBTAIL DRIVER/ PCP with proper examination given her history of symptoms since a prior surgery and unrelated to today complaint. Would not recommend antibiotics for URI symptoms in current setting of diarrheawith potential foodborne illness/ diarrhea. Vitals repeated and improved BP noted. Pt is not tachycardic and without pleurisy. The patient is to followup with primary care physician in next 2-3 days or to return to the emergency department should any of the signs or symptoms worsen or new symptoms develop. Patient had questions answered. The patient agrees with the following Diagnosis and Treatment plan and the patient will be discharged home.. Lab Data Labs: Lab Results 11/29/24 Range/Units 15:40 WBC 12.1 H (4.0-11.0) 10^3/uL RBC 5.37 (4.20-5.40) 10^6/uL Hgb 14.9 (12.0-16.0) g/dL Hct 46.6 (36.0-48.0) % MCV 86.8 (81.0-99.0) fL MCH 27.7 (26.7-34.0) pg MCHC 32.0 (29.9-35.2) g/dL RDW 14.3 (11.0-15.0) % Plt Count 315 (150-450) 10^3/uL MPV 11.4 (9.5-13.5) fL Neut % (Auto) 70.0 (43.0-75.0) % Lymph % (Auto) 22.2 (20.5-60.0) % [place] % (Auto) 6.5 (1.7-12.0) % Eos % (Auto) 0.7 L (0.9-7.0) % Baso % (Auto) 0.4 (0.2-2.0) % Neut # (Auto) 8.5 H (1.4-6.5) 10^3/uL Lymph # (Auto) 2.7 (1.2-3.8) 10^3/uL [place] # (Auto) 0.8 (0.3-0.8) 10^3/uL Eos # (Auto) 0.1 (0.0-0.7) 10^3/uL Baso # (Auto) 0.1 (0.0-0.1) 10^3/uL Abs Immat Gran (auto) 0.03 (0.00-0.03) 10^3/uL Imm/Tot Granulo (auto) 0.2 (0.0-0.5) % Sodium 142 (136-145) mmol/L Potassium 3.9 (3.5-5.1) mmol/L Chloride 104 (98-107) mmol/L Carbon Dioxide 29.5 (21.0-32.0) mmol/L Anion Gap 12.4 BUN 11.0 (7.0-18.0) mg/dL Creatinine 0.70 (0.55-1.02) mg/dL Est GFR ( Amer) >60 (>=60 mL/min/1.73m^2) Est GFR (Non-Af Amer) >60 (>=60 mL/min/1.73m^2) BUN/Creatinine Ratio 15.7 Glucose 91 (74-106) mg/dL Calcium 8.8 (8.5-10.1) mg/dL Total Bilirubin 0.2 (0.2-1.0) mg/dL AST 12 L (15-37) U/L ALT 24 (14-59) U/L Alkaline Phosphatase 134 H (46-116) U/L Troponin I High Sens 7.7 (4.0-51.3) pg/mL Total Protein 7.0 (6.4-8.2) g/dL Albumin 3.5 (3.4-5.0) g/dL Globulin 3.5 g/dL Albumin/Globulin Ratio 1.0 Lipase 27.0 (16.0-77.0) U/L Influenza Type A Ag Negative Influenza Type B Ag Negative SARS-CoV-2 Ag (CV2AG) Negative (NEGATIVE) Imaging Data Chest x-ray: My impression: 1 view chest x-ray limited by body habitus no appreciable infiltrate, no pneumothorax ECG Data Attestation: I personally reviewed and interpreted this ECG as follows: Interpretation: EKG interpretation: Emergency Department physician interpretation, normal sinus [id number] bpm, no ectopy, no ST segment elevation, normal axis. Discharge Plan Discharge Chief Complaint: Abdominal Pain Clinical Impression: Diarrhea, Upper respiratory infection Patient Disposition: Home, Self-Care Time of Disposition Decision: 16:41 Condition: Good Prescriptions / Home Meds: New ondansetron HCl 4 mg tablet 4 mg PO Q6H PRN (Reason: nausea and vomiting) Qty: 12 0RF dicyclomine 20 mg tablet 20 mg PO TID PRN (Reason: abdominal pain) 2 Days Qty: 6 0RF No Action dextroamphetamine-amphetamine [Adderall] 30 mg tablet 30 mg PO BID Rx Instructions: administer doses at least 4-6 hours apart alprazolam [Xanax] 1 mg tablet 1 mg PO BID PRN (Reason: anxiety) albuterol sulfate 90 mcg/actuation HFA aerosol inhaler 2 inh inhalation Q4H PRN (Reason: shortness of breath or wheezing) Qty: 8.5 0RF albuterol sulfate 90 mcg/actuation HFA aerosol inhaler 2 inh inhalation Q4H PRN (Reason: shortness of breath or wheezing) Qty: 8.5 0RF azithromycin 250 mg tablet 250 mg PO DAILY metronidazole 0.75 % (37.5mg/5 gram) gel 37.5 mg VAGINAL BID prednisone 50 mg tablet 50 mg PO DAILY Print Language: Kyrgyz Instructions: Upper Respiratory Infection (ED), Acute Diarrhea (ED) Additional Instructions: Please contact [facility] services for follow up in 2-[address] Mcmahan to discuss appt or medication refill. Referrals: [facility] [Physician] - As soon as possible STEPHANIE MCMAHAN [Physician] - As soon as possible
--- OUTSIDE RECORDS SUMMARY | 2024-11-29 15:24 | XMS_ITS | CCD ---
Author Organization [facility] Inform ion Partnership [facility] Care Team Providers Care Manager Of Engineering Name Role Phone MAHDI, MARY Unavailable Unavailable MAHDI, MARY Unavailable Unavailable MAHDI, MARY Unavailable Unavailable MAHDI, MARY Unavailable Unavailable Annette Valladares II Primary Care Provider Gregorio SOSA, Latonya Unavailable [phone] DO Stephanie Mcmahan Attending Provider [phone] [facility] Primary Care Provider DO Farhat Castro Emergency Provider MD Jah Almonte Jr Emergency Provider DO Stephanie Mcmahan Admit Provider Taj [facility] Rachell Murphy Emergency Provider DO Jesus Petersen Emergency Provider [facility] Primary Care Provider UZMA Resendiz Primary Care Provide r DO Farhat Castro Emergency Provider [phone] DO Nasir Garcia Emergency Provider DO Stephanie Mcmahan Attending Provider [facility] Primary Care Provider UZMA Resendiz Primary Care Provide r DO Farhat Castro Emergency Provider DO Nasir Garcia Emergency Provider [phone] MD Renato Kumar Emergency Provider [phone] MD Jah Almonte Jr Emergency Provider ANNETTE VALLADARES II Primary Care Unavail able [facility]ll E Emergency Provider DO Nasir Garcia Emergency Provider [facility] Primary Care Provider [phone] LORENZO Garcia Emergency Provider MD Jah Almonte Jr Emergency Provider DO Keith Oseguera Emergency Provider [facility] Primary Care Provider DO Nasir Garcia Emergency Provider LORENZO Garcia Emergency Provider MD Jah Almonte Jr Emergency Provider DO Keith Oseguera Emergency Provider Edy coronarufina Chemokimikrys, [facility] Rachell E Emergency Provider [phone] UZMA Resendiz Attending Provider DO Damien Rashid Emergency Provider DO Farhat Castro Emergency Provider MARKER ., DR THOMPSON Attending Unavailable MARKER ., DR THOMPSON Consulting Unavailable MARKER ., DR THOMPSON Admitting Unavailable MISC, DR PERSON Primary Care Unavailable ELVIS BAZZI Attending Unavailable ELVIS BAZZI Consulting Unavailable ELVIS BAZZI Admitting Unavailable MISC, DR PERSON Primary Care Unavailable [facility] Primary Care Provider [phone] DAHLIA ROMAN Primary Care Physician ROXY JACOBSEN Attending Unavailable LARISSA RESENDIZ Referring Unavailable MD Frank Willis Attending Provider [phone] UZMA Resendiz Referring Provider Frank Willis Unavailable Bandar Hart Unavailable [facility] Primary Care Provider LORENZO Bar Emergency Provider Bullimkrys, PLATE FORMER- Rachell E Emergency Provider [phone] [facility] Primary Care Provider MD Renato Kumar Emergency Provider BeboRadha Unavailable UZMA Resendiz Attending Provider [facility] Primary Care Provider LORENZO Greenwood Emergency Provider [phone] DO Keith Oseguera Emergency Provider Unavai Jay Zamora Admitting Unavailable Jay Greenwood Attending Unavailable [facility] Primary Care Unavaila ble Keith Oseguera Admitting Unavailable Keith Oseguera Attending Unavailable [facility] Primary Care Unavaila ble Larissa Resendiz Admitting Unavailab le Larissa Resendiz Attending Unavailab le [facility] Primary Care Unavaila ble Bullimore, Rachell E Admitting Unavailable Bullcedric, Rachell E Attending Unavailable Renato Kumar Admitting Unavailable Renato Kumar Attending Unavailable [facility] Primary Care Unavaila ble Mark Bar Admitting Unavailable Mark Bar Attending Unavailable [facility] Primary Care Unavaila ble STEPHANIE MCMAHAN Attending Unavailable VISCSTEPHANIE Ureña Referring Unavailable FIONA RODRÍGUEZ Attending Unavailable VISCSTEPHANIE Ureña Attending Unavailable VISCSTEPHANIE Ureña Referring Unavailable Allergies Allergy Classification Reported Allergen(s) Allergy Type Date of Onset Reaction(s) Facility (20 sources) Codeine; Translations: [CODEINE] Drug Allergy 09-07-20 Other: See Comments [facility] (20 sources) peach allergenic extract; Translations: [PEACH] Drug Allergy 09-07-20 Rash, Hives [facility] (20 sources) Latex; Translations: [Latex] Allergy to substance 06-25-20 Eruption of skin (disorder), [facility] (20 sources) Penicillins; Translations: [Penicillins] Allergy to substance 06-25-20 Wheezing [facility] (20 sources) Sulfamethoxazole; Translations: [sulfamethoxazole] Drug Allergy 06-25-20 [facility] (20 sources) Trimethoprim; Translations: [trimethoprim] Drug Allergy 06-25-20 [facility] (7 sources) AXE products Allergy to substance 06-25-20 Hives [facility] (11 sources) Morphine; Translations: [morphine] Drug Allergy 01-11-20 [facility] (1 source) Codeine Drug Allergy [facility] (1 source) natural latex rubber Drug allergy (disorder) [facility] (1 source) Penicillin Drug Allergy [facility] (1 source) Sulfamethoxazole / Trimethoprim Drug Allergy [facility] (6 sources) traMADol Drug Allergy 03-22-20 itching [facility] (3 sources) Sulfamethoxazole / Trimethoprim Drug Allergy Unknown [employer] Other (1 source) Codeine Drug Allergy 03-30-20 [facility] Repository (1 source) traMADol Drug Allergy 03-30-20 [facility] Repository Medications Current Medications Medication Drug Class(es) [...] area for up to 12 hrs nystatin [id number] unt/ml topical cream (1 source) Polyene Antifungal [...] 1:30am Start: 02-02-2013 take 1 capsule by [facility] every twelve hours Adderall XR 30 mg [...] oral solution (20 sources) alpha-Adrenergic Agonist, Uncompetitive G-jixivn-V-aspartate Receptor Antagonist, Sigma-1 Agonist Start: 10-27-2021 End: 02-13-2022 take 1 mL by mouth four times daily Nsfukbmwlvkbtvy-Eommtvcga-Ls (Bromfed Dm) 2-30-10 mg/5 mL syrup Discontinued [...] femur] Episodic Other aftercare (1 source) Other technician terminal and repeater (current) drug therapy; Translations: [OTH LONG-TERM CURRENT [...] aPTT Coag (PPP) [Time] 30.4 s 25.1-36.5 [facility] Comment on above: A hematocrit value g reater than 55% may lead to inaccurate results in coagulation testing. Patients having hematocrit values >55% require a special collection tube for coagulation studies. Please contact the laboratory at [phone] for redraw instructions. Automated basophil %Ordered By: Keith Oseguera on 03-31-2024 Basophils/100 WBC (Bld) 1.2 % Normal . [facility] Comment on above: Performed By: #### P TT, CK, BNP, BMP, PT, CBC, HS TROP #### [facility] [address] [place] [address] Automated basophil countOrde red By: Keith Oseguera on 03-31-2024 Basophils (Bld) [#/Vol] 0.1 10*3/uL Normal 0.0-0.2 [facility] Comment on above: Result Comment: PERF ORMED BY: [place] [address] PATHOLOGIST BLEACHER KRAFT PULP GUERLINE STANLEY M.D. Performed By: #### P TT, CK, BNP, BMP, PT, CBC, HS TROP #### [address] Automated blood monocyte cou ntOrdered By: Keith Oseguera on 03-31-2024 Monocytes (Bld) [#/Vol] 0.7 10*3/uL Normal 0.0-0.8 [facility] Comment on above: Performed By: #### P TT, CK, BNP, BMP, PT, CBC, HS TROP #### [address] Automated eosinophil %Ordere d By: Keith Oseguera on 03-31-2024 Eosinophils/100 WBC (Bld) 1.3 % Normal . [facility] Comment on above: Performed By: #### P TT, CK, BNP, BMP, PT, CBC, HS TROP #### [address] Automated eosinophil countOr dered By: Keith Oseguera on 03-31-2024 Eosinophils (Bld) [#/Vol] 0.1 10*3/uL Normal 0.0-0.45 [facility] Comment on above: Performed By: #### P TT, CK, BNP, BMP, PT, CBC, HS TROP #### [address] Automated monocyte %Ordered By: Keith Oseguera on 03-31-2024 Monocytes/100 WBC (Bld) 7.0 % Normal . [facility] Comment on above: Performed By: #### P TT, CK, BNP, BMP, PT, CBC, HS TROP #### [address] Automated neutrophil %Ordere d By: Keith Oseguera on 03-31-2024 Neutrophils/100 WBC (Bld) 61.4 % Normal . [facility] Comment on above: Performed By: #### P TT, CK, BNP, BMP, PT, CBC, HS TROP #### [address] BNP ser/plasOrdered By: Kg Oseguera on 03-31-2024 Natriuretic peptide B (Bld) [Mass/Vol] 10.0 pg/mL Normal 5-100 [facility] Comment on above: Result Comment: PERF ORMED BY: [place] [address] PATHOLOGIST BLEACHER KRAFT PULP GUERLINE STANLEY M.D. Performed By: #### P TT, CK, BNP, BMP, PT, CBC, HS TROP #### [address] Basic Metabolic Panelon Creatinine Clr Calc Pharmacy 171.54 Normal [facility] Comment on above: Result Comment: PERF ORMED BY: [place] [address] PATHOLOGIST BLEACHER KRAFT PULP GUERLINE STANLEY M.D. Performed By: #### P TT, CK, BNP, BMP, PT, CBC, HS TROP #### [place] [id number] [facility] GFR/1.73 sq M.predicted MDRD (S/P/Bld) [Vol rate/Area] mL/min/{1.73_m2} Normal [facility] Comment on above: Performed By: #### P TT, CK, BNP, BMP, PT, CBC, HS TROP #### [place] [id number] [facility] Bilirubin Test strip Ql (U)O rdered By: Keith Oseguera on 03-31-2024 Bilirubin Ql (U) Negative Negative [facility] COVID CepheidOrdered By: Dusty Oseguera on 03-31-2024 SARS-CoV-2 (COVID-19) Ab IA Ql Negative Negative [facility] Comment on above: This is a duplicate Cepheid Xpert Xpress CoV-2/Flu/RSV Plus RNA by RT-PCR result to be used for statistical tracking purpose only. SARS-CoV-2 (COVID-19) RNA JUDIT+probe Ql (Unsp spec) [facility] COVID-19 / Flu A/B / RSV PCR [...] or Cepheid Disclaimer revoked sooner. PERFORMED BY: [facility] [address] [place] [address] PATHOLOGIST BLEACHER KRAFT PULP GUERLINE STANLEY M.D. Normal [facility] Comment on above: Performed By: #### C EPHEID NEG, COVID19 FLU RSV #### [facility] [address] [place] [address] [facility] Calcium [Mass/volume] in Ser um or PlasmaOrdered By: Keith Oseguera on 06-04-2024 Calcium [Mass/Vol] 9.5 mg/dL Normal 8.6-10.3 [facility] Comment on above: Performed By: #### P TT, CK, BNP, BMP, PT, CBC, HS TROP #### [address] Carbon dioxide, total [Moles /volume] in Serum or PlasmaOrdered By: Keith Oseguera on 03-31-2024 CO2 [Moles/Vol] 26.8 mmol/L Normal 21.0-31.0 [facility] Comment on above: Performed By: #### P TT, CK, BNP, BMP, PT, CBC, HS TROP #### [facility] [address] [place] [address] Cepheid COVID PCR Negativeon 03-31-2024 SARS-CoV-2 (COVID-19) RNA JUDIT+probe Ql (Unsp spec) Negative Normal Negative [facility] Comment on above: Result Comment: This is a duplicate Cepheid Xpert Xpress CoV-2/Flu/RSV Plus RNA by RT-PCR result to be used for statistical tracking purpose only. PERFORMED BY: [place] [address] PATHOLOGIST BLEACHER KRAFT PULP GUERLINE STANLEY M.D. Performed By: #### C EPHEID NEG, COVID19 FLU RSV #### [address] Chlamydia/GC Amplificationon 03-31-2024 Chlamydia Trachomotis, JUDIT Negative Normal Negative [facility] Comment on above: Performed By: #### U HCG, UA #### [address] Neisseria Gonorrhoeae, JUDIT Negative Normal Negative [facility] Comment on above: Result Comment: Perf ormed at: =G - [facility] [address] [id number] Glassware Engraver: Miryam Olsen MD, Phone: [phone] PERFORMED BY: [place] [address] PATHOLOGIST BLEACHER KRAFT PULP GUERLINE STANLEY M.D. Performed By: #### U HCG, UA #### [address] Chloride [Moles/volume] in S gale or PlasmaOrdered By: Keith Oseguera on 03-31-2024 Chloride [Moles/Vol] 103 mmol/L Normal 98-107 [facility] Comment on above: Performed By: #### P TT, CK, BNP, BMP, PT, CBC, HS TROP #### [address] Color of Urine by AutoOrdere d By: Keith Oseguera on 03-31-2024 Color (U) Light-yellow Normal Yellow [facility] Comment on above: Order Comment: Name Collection Type:: Clean-Voided Midstream Performed By: #### U HCG, UA #### [address] Complete Blood Count Auto Di ffon 03-31-2024 Mean Corpuscular HGB Conc 32.9 g/dL Normal 32.0-35.0 [facility] Comment on above: Performed By: #### P TT, CK, BNP, BMP, PT, CBC, HS TROP #### [address] Monocytes/100 WBC (Bld) 17.93 % Normal 0.00-20.00 [facility] Comment on above: Performed By: #### P TT, CK, BNP, BMP, PT, CBC, HS TROP #### [address] NRBC% 0.1 /100{WBC} Normal 0-0.5 [facility] Comment on above: Performed By: #### P TT, CK, BNP, BMP, PT, CBC, HS TROP #### [address] Creatine kinase [Enzymatic a ctivity/volume] in Serum or PlasmaOrdered By: Keith Oseguera on 03-31-2024 CK [Catalytic activity/Vol] 83 U/L Normal 30-223 [facility] Comment on above: Performed By: #### C EPHEID NEG, COVID19 FLU RSV #### [facility] [address] Creatinine [Mass/volume] in Serum or PlasmaOrdered By: Keith Oseguera on 03-31-2024 Creatinine [Mass/Vol] 0.59 mg/dL Low 0.60-1.[address] [facility] Comment on above: Performed By: #### P TT, CK, BNP, BMP, PT, CBC, HS TROP #### [facility] [address] Erythrocyte distribution wid th [Ratio] by Automated countOrdered By: Keith Oseguera on 03-31-2024 Erythrocyte distribution width (RBC) [Ratio] 14.4 % Normal 11.9-15.3 [facility] Comment on above: Performed By: #### P TT, CK, BNP, BMP, PT, CBC, HS TROP #### [address] Erythrocytes [#/volume] in B lood by Automated countOrdered By: Keith Oseguera on 03-31-2024 RBC (Bld) [#/Vol] 5.36 10*6/uL High 3.60-5.00 [facility] Comment on above: Performed By: #### P TT, CK, BNP, BMP, PT, CBC, HS TROP #### [address] Glucose [Mass/volume] in Ser um or PlasmaOrdered By: Keith Oseguera on 03-31-2024 Glucose [Mass/Vol] 106 mg/dL High 70-100 [facility] Comment on above: ADA recommended refe rence rangeRandom Glucose Reference Range is dependent on time and content of last meal. Glucose of more than 200 mg/dL in a nonstressed, ambulatory subject supports the diagnosis of Diabetes Mellitus. Result Comment: [place] om Glucose Reference Range is dependent on time and content of last meal. Glucose of more than 200 mg/dL in a nonstressed, ambulatory subject supports the diagnosis of Diabetes Mellitus. ADA recommended reference range Performed By: #### P TT, CK, BNP, BMP, PT, CBC, HS TROP #### [facility] [address] [place] [address] [place] Glucose [Mass/volume] in Uri ne by Test stripOrdered By: Keith Oseguera on 03-31-2024 Glucose Test strip (U) [Mass/Vol] Normal mg/dL Normal [facility] HCG ( test) IA.rapi d Ql (U)Ordered By: Keith Oseguera on 03-31-2024 HCG ( test) Ql (U) Negative [facility] HCG,Urineon 03-31-2024 Beta HCG ( test) Ql (U) Negative Normal [facility] Comment on above: Order Comment: Name Collection Type:: Clean-Voided Midstream Result Comment: PERF ORMED BY: [place] [address] PATHOLOGIST BLEACHER KRAFT PULP GUERLINE STANLEY M.D. Performed By: #### U HCG, UA #### [address] Hematocrit [Volume Fraction] of Blood by Automated countOrdered By: Keith Oseguera on 03-31-2024 Hematocrit (Bld) [Volume fraction] 45.3 % Normal 34.0-46.4 [facility] Comment on above: Performed By: #### P TT, CK, BNP, BMP, PT, CBC, HS TROP #### [address] Hemoglobin Test strip Ql (U) Ordered By: Keith Oseguera on 03-31-2024 Hemoglobin Ql (U) Negative Negative [facility] Hemoglobin [Mass/volume] in BloodOrdered By: Keith Oseguera on 03-31-2024 Hemoglobin (Bld) [Mass/Vol] 14.9 g/dL Normal 11.8-15.4 [facility] Comment on above: Performed By: #### P TT, CK, BNP, BMP, PT, CBC, HS TROP #### [place] [address] [place] INR in Platelet poor plasma by Coagulation assayOrdered By: Keith Oseguera on 03-31-2024 INR Coag (PPP) [Relative time] 1.0 {INR} Normal [facility] Comment on above: INR Therapeutic Rang e [...] FLU RSV #### [facility] [address] [place] [address] [place] Ketones [Presence] in Urine by Test stripOrdered By: Keith Oseguera on 03-31-2024 Ketones Ql (U) Negative Normal Negative [facility] Comment on above: Order Comment: Name Collection Type:: Clean-Voided Midstream Performed By: #### U HCG, UA #### [facility] [address] [place] [address] [place] Leukocyte esterase [Presence ] in Urine by Test stripOrdered By: Keith Oseguera on 03-31-2024 Leukocyte esterase Test strip Ql (U) Negative Normal Negative [facility] Comment on above: Order Comment: Name Collection Type:: Clean-Voided Midstream Performed By: #### U HCG, UA #### [facility] [address] [place] [address] [place] Leukocytes [#/volume] correc taurus for nucleated erythrocytes in Blood by Automated counOrdered By: Keith Oseguera on 03-31-2024 WBC corrected for nucl RBC Auto (Bld) [#/Vol] 10.0 10*3/uL 3.8-11.6 [facility] Leukocytes [#/volume] in Blo od by Automated countOrdered By: Keith Oseguera on 03-31-2024 WBC (Bld) [#/Vol] 10.0 10*3/uL Normal 3.8-11.6 [facility] Comment on above: Performed By: #### P TT, CK, BNP, BMP, PT, CBC, HS TROP #### [address] Lymphocytes [#/volume] in Bl ood by Automated countOrdered By: Keith Oseguera on 03-31-2024 Lymphocytes (Bld) [#/Vol] 2.9 10*3/uL Normal 1.00-4.8 [facility] Comment on above: Performed By: #### P TT, CK, BNP, BMP, PT, CBC, HS TROP #### [place] [address] [place] Lymphocytes/100 leukocytes i n Blood by Automated countOrdered By: Keith Oseguera on 03-31-2024 Lymphocytes/100 WBC (Bld) 29.1 % Normal . [facility] Comment on above: Performed By: #### P TT, CK, BNP, BMP, PT, CBC, HS TROP #### [facility] [address] [place] [address] MCH [Entitic mass] by Automa taurus countOrdered By: Keith Oseguera on 03-31-2024 MCH (RBC) [Entitic mass] 27.8 pg Normal 24.7-34.3 [facility] Comment on above: Performed By: #### P TT, CK, BNP, BMP, PT, CBC, HS TROP #### [address] MCHC Auto (RBC) [Mass/Vol]Or dered By: Keith Oseguera on 03-31-2024 MCHC (RBC) [Mass/Vol] 32.9 g/dL 32.0-35.[address] [facility] MCV [Entitic volume] by Auto mated countOrdered By: Keith Oseguera on 03-31-2024 MCV (RBC) [Entitic vol] 84.4 fL Normal 80-100 [facility] Comment on above: Performed By: #### P TT, CK, BNP, BMP, PT, CBC, HS TROP #### [facility] [address] [place] [address] [place] Monocyte distribution width [Entitic volume] in Blood by AutomatedOrdered By: Keith Oseguera on 03-31-2024 Monocyte distribution width Auto (Bld) [Entitic vol] 17.93 % 0.00-20.00 [facility] Neutrophils [#/volume] in Bl ood by Automated countOrdered By: Keith Oseguera on 03-31-2024 Neutrophils (Bld) [#/Vol] 6.1 10*3/uL Normal 1.8-7.7 [facility] Comment on above: Performed By: #### P TT, CK, BNP, BMP, PT, CBC, HS TROP #### [facility] [address] Nitrite Test strip Ql (U)Ord ered By: Keith Oseguera on 03-31-2024 Nitrite Ql (U) Negative Negative [facility] No Panel InformationOrdered By: Kieth Oseguera on 03-31-2024 Estimated GFR (CKD-EPI) > 60.0 mL/Min [facility] Creatinine Clearance (Chem 171.54 [facility] Nucleated erythrocytes [Pres ence] in Blood by Automated countOrdered By: Keith Oseguera on 03-31-2024 Nucleated RBC Auto Ql (Bld) 0.1 /100{WBC} 0-0.5 [facility] Partial Thromboplastin Timeo n 03-31-2024 aPTT Coag (Bld) [Time] 30.4 s Normal 25.1-36.5 [facility] Comment on above: Result Comment: A he matocrit value greater than 55% may lead to inaccurate results in coagulation testing. Patients having hematocrit values >55% require a special collection tube for coagulation studies. Please contact the laboratory at [phone] for redraw instructions. PERFORMED BY: [facility] [address] [facility] [place] [address] PATHOLOGIST BLEACHER KRAFT PULP GUERLINE STANLEY M.D. Performed By: #### C EPHEID NEG, COVID19 FLU RSV #### [facility] [address] [place] [id number] [place] Platelet mean volume [Entiti c volume] in Blood by Automated countOrdered By: Keithradha Oseguera on 03-31-2024 Platelet mean volume (Bld) [Entitic vol] 9.4 fL Normal 6.3-10.7 [facility] Comment on above: Performed By: #### P TT, CK, BNP, BMP, PT, CBC, HS TROP #### [facility] [address] Platelets [#/volume] in Bloo d by Automated countOrdered By: Keith Oseguera on 03-31-2024 Platelets (Bld) [#/Vol] 277 10*3/uL Normal 150-450 [facility] Comment on above: Performed By: #### P TT, CK, BNP, BMP, PT, CBC, HS TROP #### [facility] [address] Potassium [Moles/volume] in Serum or PlasmaOrdered By: Keith Oseguera on 03-31-2024 Potassium [Moles/Vol] 3.7 mmol/L Normal 3.5-5.[address] [facility] Comment on above: Performed By: #### P TT, CK, BNP, BMP, PT, CBC, HS TROP #### [facility] [address] [place] [id number] [facility] Protein Test strip (U) [Mass /Vol]Ordered By: Keith Oseguera on 03-31-2024 Protein (U) [Mass/Vol] Negative Negative [facility] Prothrombin time (PT)Ordered By: Keith Oseguera on 03-31-2024 PT Coag (PPP) [Time] 11.1 s Normal 9.0-12.9 [facility] Comment on above: A hematocrit value g reater than 55% may lead to inaccurate results in coagulation testing. Patients having hematocrit values >55% require a special collection tube for coagulation studies. Please contact the laboratory at [phone] for redraw instructions. Result Comment: A he matocrit value greater than 55% may lead to inaccurate results in coagulation testing. Patients having hematocrit values >55% require a special collection tube for coagulation studies. Please contact the laboratory at [phone] for redraw instructions. Performed By: #### C EPHEID NEG, COVID19 FLU RSV #### [address] Serum or plasma anion gap de terminationOrdered By: Keith Oseguera on 03-31-2024 Anion gap [Moles/Vol] 9.9 mmol/L Normal 6.0-15.[address] [facility] Comment on above: Performed By: #### P TT, CK, BNP, BMP, PT, CBC, HS TROP #### [address] Sodium [Moles/volume] in Ser um or PlasmaOrdered By: Keith Oseguera on 03-31-2024 Sodium [Moles/Vol] 136 mmol/L Normal 136-145 [facility] Comment on above: Performed By: #### P TT, CK, BNP, BMP, PT, CBC, HS TROP #### [address] Specific gravity Test strip (U) [Rel density]Ordered By: Keith Oseguera on 03-31-2024 Specific gravity (U) [Rel density] 1.024 1.001-1.03 0 [facility] Trichomonas Screenon 024 Trichomonas Screen -------- Trichomonas Screen No Trichomonas Seen Trich Reference Reference range = None Seen PERFORMED BY: [place] [address] PATHOLOGIST BLEACHER KRAFT PULP GUERLINE STANLEY M.D. Normal [facility] Comment on above: Performed By: #### U HCG, UA #### [address] Troponin I High Sensitivityo n 03-31-2024 Troponin I High Sensitivity 4.1 pg/mL Normal 0.0-15.0 [facility] Comment on above: Result Comment: PERF ORMED BY: [place] [address] PATHOLOGIST BLEACHER KRAFT PULP GUERLINE STANLEY M.D. Performed By: #### C EPHEID NEG, COVID19 FLU RSV #### [facility] [address] [place] [address] Troponin I.cardiac [Mass/vol ume] in Serum or Plasma by Detection limit <= 0.01 ng/Ordered By: Keith Oseguera on 03-31-2024 Troponin I.cardiac DL <= 0.01 ng/mL [Mass/Vol] 4.1 pg/mL 0.0-15.0 [facility] Urea nitrogen [Mass/volume] in Serum or PlasmaOrdered By: Keith Oseguera on 03-31-2024 Urea nitrogen [Mass/Vol] 18 mg/dL Normal 7-25 [facility] Comment on above: Performed By: #### P TT, CK, BNP, BMP, PT, CBC, HS TROP #### [facility] [address] [place] [address] Urinalysison 03-31-2024 Bilirubin,Urine Negative Normal Negative [facility] Comment on above: Order Comment: Name Collection Type:: Clean-Voided Midstream Performed By: #### U HCG, UA #### [place] [address] [place] Glucose Ql (U) Normal Normal Normal [facility] Comment on above: Order Comment: Name Collection Type:: Clean-Voided Midstream Performed By: #### U HCG, UA #### [place] [address] [place] Nitrite,Urine Negative Normal Negative [facility] Comment on above: Order Comment: Name Collection Type:: Clean-Voided Midstream Performed By: #### U HCG, UA #### [address] Occult Blood,Urine Negative Normal Negative [facility] Comment on above: Order Comment: Name Collection Type:: Clean-Voided Midstream Performed By: #### U HCG, UA #### [address] Protein,Urine Negative Normal Negative [facility] Comment on above: Order Comment: Name Collection Type:: Clean-Voided Midstream Performed By: #### U HCG, UA #### [address] Specificy Hood,Urine 1.024 Normal 1.001-1.03 0 [facility] Comment on above: Order Comment: Name Collection Type:: Clean-Voided Midstream Performed By: #### U HCG, UA #### [address] Urobilinogen,Urine Normal Normal Normal [facility] Comment on above: Order Comment: Name Collection Type:: Clean-Voided Midstream Performed By: #### U HCG, UA #### [address] Urine appearanceOrdered By: Keith Oseguera on 03-31-2024 Appearance (U) Clear Normal Clear [facility] Comment on above: Order Comment: Name Collection Type:: Clean-Voided Midstream Performed By: #### U HCG, UA #### [address] Urobilinogen Test strip (U) [Mass/Vol]Ordered By: Keith Oseguera on 03-31-2024 Urobilinogen (U) [Mass/Vol] Normal mg/dL Normal [facility] XR chest 1V portableon 03-31 XR chest 1V portable [facility] [place] [address] XRay Report Signed Patient: Ne Keita MR#: [id number] : 1985 Acct:[id number] Age/Sex: 38 / F ADM Date: 03/30/24 Loc: ER Room: Type: [facility] ER Attending Dr: Copies to: [...] Jaycob Cr M.D.03/31/2024 9:11 AM Dictation Location: [place] [address] Transcribed By: [facility] 03/31/24910 Dictated By: Jaycob Cr DO 03/31/24909 Signed By: 03/31/24910 Normal [facility] pH of Urine by Test stripOrd ered By: Keith Oseguera on 03-31-2024 pH (U) 5.5 [pH] Normal 5.0-9.0 [facility] Comment on above: Order Comment: Name Collection Type:: Clean-Voided Midstream Performed By: #### U HCG, UA #### [address] ECG 12 lead ECGon 03-30-2024 ECG 12 lead ECG [facility] Main [place] [address] [place] [address] Electrocardiograph Report Signed Patient: Ne Keita MR#: [id number] : 1985 Acct:[id number] Age/Sex: 38 / F ADM Date: 03/30/24 Loc: ER Room: Type: [facility] ER Attending Dr: Ordering Provider: [...] sinus rhythm Confirmed by Keith Oseguera DO ([id number]) on 03/31/2024 6:52:21 AM Referred By: Electronically Signed By:Keith Oseguera DO Transcribed By: MUS Signed By Keith Oseguera DO [id number] Normal [facility] Hepatitis Acute Panelon 04- HBsAg Screen Negative Normal Negative [facility] Comment on above: Order Comment: Name Collection Type:: Clean-Voided Midstream Performed By: #### U HCG, UA #### [address] Hepatitis A Antibody IgM Negative Normal Negative [facility] Comment on above: Order Comment: Name Collection Type:: Clean-Voided Midstream Performed By: #### U HCG, UA #### [address] Hepatitis B Core Antibody IgM Negative Normal Negative [facility] Comment on above: Order Comment: Name Collection Type:: Clean-Voided Midstream Performed By: #### U HCG, UA #### [address] Hepatitis C Virus Antibody Non-Reactive Normal Non Reactive [facility] Comment on above: Order Comment: Name Collection Type:: Clean-Voided Midstream Performed By: #### U HCG, UA #### [address] Interpretation Hepatitis C Normal . [facility] Comment on above: Order Comment: Name Collection Type:: Clean-Voided Midstream Result Comment: Not infected with HCV unless early or acute infection is suspected (which may be delayed in an immunocompromised individual), or other evidence exists to indicate HCV infection. Performed at: - [facility] [id number] Glassware Engraver: Rell Hernandez PhD, Phone: [phone] PERFORMED BY: [place] [address] PATHOLOGIST BLEACHER KRAFT PULP GUERLINE STANLEY M.D. Performed By: #### U HCG, UA #### [address] Hepatitis B virus surface Ag [Presence] in Serum or Plasma by ImmunoassayOrdered By: Larissa Resendiz on 02-19-2024 HBV surface Ag IA Ql Negative Negative [facility] Hepatitis C virus IgG Ab [Pr esence] in Serum or Plasma by ImmunoassayOrdered By: Larissa Resendiz on 02-19-2024 HCV IgG IA Ql Non-Reactive Non Reactive [facility] No Panel InformationOrdered By: Larissa Resendiz on 02-19-2024 Hepatitis A IgM Antibody Negative Negative [facility] Hepatitis B Core IgM Antibody Negative Negative [facility] Hepatitis C Interpretation See comment . [facility] Comment on above: Not infected with HC V unless early or acute infection issuspected (which may be delayed in an immunocompromisedindividual), or other evidence exists to indicate HCVinfection.Performed at: [facility] [place] [id number] Director: Rell Hernandez PhD, Phone: [phone] Alanine aminotransferase [En zymatic activity/volume] in Serum or PlasmaOrdered By: Renato Kumar on 11-15-2023 ALT [Catalytic activity/Vol] 21 U/L Normal 7-52 [facility] Comment on above: Performed By: #### C MP, LIPASE, CBC #### [facility] [address] [place] [address] [place] Albumin [Mass/volume] in Ser um or Plasma by Bromocresol green (BCG) dye binding methoOrdered By: Renato Kumar on 11-15-2023 Albumin BCG dye [Mass/Vol] 4.0 g/dL 3.5-5.7 [facility] Alkaline phosphatase [Enzyma tic activity/volume] in Serum or PlasmaOrdered By: Renato Kumar on 11-15-2023 ALP [Catalytic activity/Vol] 102 U/L Normal 34-104 [facility] Comment on above: Performed By: #### C MP, LIPASE, CBC #### [facility] [address] [place] [address] [place] Aspartate aminotransferase [ Enzymatic activity/volume] in Serum or PlasmaOrdered By: Renato Kumar on 11-15-2023 AST [Catalytic activity/Vol] 16 U/L Normal 13-39 [facility] Comment on above: Performed By: #### C MP, LIPASE, CBC #### [address] Automated basophil %Ordered By: Renato Kumar on 11-15-2023 Basophils/100 WBC (Bld) 0.9 % Normal . [facility] Comment on above: Performed By: #### C MP, LIPASE, CBC #### [address] Automated basophil countOrde red By: Renato Kumar on 11-15-2023 Basophils (Bld) [#/Vol] 0.1 10*3/uL Normal 0.0-0.2 [facility] Comment on above: Result Comment: PERF ORMED BY: [place] [address] PATHOLOGIST BLEACHER KRAFT PULP GUERLINE STANLEY M.D. Performed By: #### C MP, LIPASE, CBC #### [address] Automated blood monocyte cou ntOrdered By: Renato Kumar on 11-15-2023 Monocytes (Bld) [#/Vol] 0.8 10*3/uL Normal 0.0-0.8 [facility] Comment on above: Performed By: #### C MP, LIPASE, CBC #### [address] Automated eosinophil %Ordere d By: Renato Kumar on 11-15-2023 Eosinophils/100 WBC (Bld) 0.9 % Normal . [facility] Comment on above: Performed By: #### C MP, LIPASE, CBC #### [address] Automated eosinophil countOr dered By: Renato Kumar on 11-15-2023 Eosinophils (Bld) [#/Vol] 0.1 10*3/uL Normal 0.0-0.45 [facility] Comment on above: Performed By: #### C MP, LIPASE, CBC #### [address] Automated monocyte %Ordered By: Renato Kumar on 11-15-2023 Monocytes/100 WBC (Bld) 6.3 % Normal . [facility] Comment on above: Performed By: #### C MP, LIPASE, CBC #### [facility] [address] [place] [address] Automated neutrophil %Ordere d By: Renato Kumar on 11-15-2023 Neutrophils/100 WBC (Bld) 72.4 % Normal . [facility] Comment on above: Performed By: #### C MP, LIPASE, CBC #### [address] Automated urine color determ inationOrdered By: Renato Kumar on 11-15-2023 Color (U) Yellow Normal Yellow [facility] Comment on above: Order Comment: Name Collection Type:: Clean-Voided Midstream Performed By: #### U HCG, UA #### [address] Bilirubin Test strip Ql (U)O rdered By: Renato Kumar on 11-15-2023 Bilirubin Ql (U) Negative Negative [facility] Bilirubin.total [Mass/volume ] in Serum or PlasmaOrdered By: Renato Kumar on 11-15-2023 Bilirubin [Mass/Vol] 0.2 mg/dL Low 0.3-1.0 [facility] Comment on above: Performed By: #### C MP, LIPASE, CBC #### [address] abdomen pelvis wo conon 0 11-15-2023 CT abdomen pelvis wo con [facility] [place] [address] CT Scan Report Signed Patient: Ne Keita MR#: [id number] : 1985 Acct:[id number] Age/Sex: 38 / F ADM Date: 11/15/23 Loc: ER Room: Type: [facility] ER Attending Dr: Copies to: [...] Jaycob Cr M.D.11/15/2023 6:21 PM Dictation Location: [place] [address] Transcribed By: [facility] 11/15/231820 Dictated By: Jaycob Cr DO 11/15/231815 Signed By: 11/15/23 182 Normal [facility] Calcium [Mass/volume] in Ser um or PlasmaOrdered By: Renato Kumar on 11-15-2023 Calcium [Mass/Vol] 8.9 mg/dL Normal 8.6-10.3 [facility] Comment on above: Performed By: #### C MP, LIPASE, CBC #### [facility] [address] [place] [address] [place] Carbon dioxide, total [Moles /volume] in Serum or PlasmaOrdered By: Renato Kumar on 11-15-2023 CO2 [Moles/Vol] 27.0 mmol/L Normal 21.0-31.0 [facility] Comment on above: Performed By: #### C MP, LIPASE, CBC #### [facility] [address] [place] [address] [place] Chloride [Moles/volume] in S gale or PlasmaOrdered By: Renato Kumar on 11-15-2023 Chloride [Moles/Vol] 108 mmol/L High 98-107 [facility] Comment on above: Performed By: #### C MP, LIPASE, CBC #### [facility] [address] Complete Blood Count Auto Di ffon 11-15-2023 Mean Corpuscular HGB Conc 33.2 g/dL Normal 32.0-35.0 [facility] Comment on above: Performed By: #### C MP, LIPASE, CBC #### [address] Monocytes/100 WBC (Bld) 17.23 % Normal 0.00-20.00 [facility] Comment on above: Performed By: #### C MP, LIPASE, CBC #### [address] NRBC% 0.1 /100{WBC} Normal 0-0.5 [facility] Comment on above: Performed By: #### C MP, LIPASE, CBC #### [address] Comprehensive Metabolic Pane oscar 11-15-2023 Albumin [Mass/Vol] 4.0 g/dL Normal 3.5-5.7 [facility] Comment on above: Performed By: #### C MP, LIPASE, CBC #### [place] [address] [place] Creatinine Clr Calc Pharmacy 154.63 Normal [facility] Comment on above: Performed By: #### C MP, LIPASE, CBC #### [place] [address] [place] GFR/1.73 sq M.predicted MDRD (S/P/Bld) [Vol rate/Area] mL/min/{1.73_m2} Normal [facility] Comment on above: Performed By: #### C MP, LIPASE, CBC #### [address] Creatinine [Mass/volume] in Serum or PlasmaOrdered By: Renato Kumar on 11-15-2023 Creatinine [Mass/Vol] 0.64 mg/dL Normal 0.60-1.[address] [facility] Comment on above: Performed By: #### C MP, LIPASE, CBC #### [facility] [address] Erythrocyte distribution wid th [Ratio] by Automated countOrdered By: Renato Kumar on 11-15-2023 Erythrocyte distribution width (RBC) [Ratio] 14.9 % Normal 11.9-15.3 [facility] Comment on above: Performed By: #### C MP, LIPASE, CBC #### [facility] [address] Erythrocytes [#/volume] in B lood by Automated countOrdered By: Renato Kumar on 11-15-2023 RBC (Bld) [#/Vol] 4.99 10*6/uL Normal 3.60-5.00 [facility] Comment on above: Performed By: #### C MP, LIPASE, CBC #### [facility] [address] Glucose [Mass/volume] in Ser um or PlasmaOrdered By: Renato Kumar on 11-15-2023 Glucose [Mass/Vol] 87 mg/dL Normal 70-100 [facility] Comment on above: ADA recommended refe rence rangeRandom Glucose Reference Range is dependent on time and content of last meal. Glucose of more than 200 mg/dL in a nonstressed, ambulatory subject supports the diagnosis of Diabetes Mellitus. Result Comment: [place] om Glucose Reference Range is dependent on time and content of last meal. Glucose of more than 200 mg/dL in a nonstressed, ambulatory subject supports the diagnosis of Diabetes Mellitus. ADA recommended reference range Performed By: #### C MP, LIPASE, CBC #### [facility] [address] HCG ( test) IAmagdai d Ql (U)Ordered By: Renato Kumar on 11-15-2023 HCG ( test) Ql (U) Negative [facility] HCG,Urineon 11-15-2023 Beta HCG ( test) Ql (U) Negative Normal [facility] Comment on above: Order Comment: Name Collection Type:: Clean-Voided Midstream Result Comment: PERF ORMED BY: [place] [address] PATHOLOGIST BLEACHER KRAFT PULP GUERLINE SATNLEY M.D. Performed By: #### U HCG, UA #### [address] Hematocrit [Volume Fraction] of Blood by Automated countOrdered By: Renato Kumar on 11-15-2023 Hematocrit (Bld) [Volume fraction] 42.2 % Normal 34.0-46.4 [facility] Comment on above: Performed By: #### C MP, LIPASE, CBC #### [address] Hemoglobin [Mass/volume] in BloodOrdered By: Renato Kumar on 11-15-2023 Hemoglobin (Bld) [Mass/Vol] 14.0 g/dL Normal 11.8-15.4 [facility] Comment on above: Performed By: #### C MP, LIPASE, CBC #### [address] Ketones Auto test strip (U) [Mass/Vol]Ordered By: Renato Kumar on 11-15-2023 Ketones (U) [Mass/Vol] Negative Negative [facility] Leukocytes [#/volume] correc taurus for nucleated erythrocytes in Blood by Automated counOrdered By: Renato Kumar on 11-15-2023 WBC corrected for nucl RBC Auto (Bld) [#/Vol] 12.5 10*3/uL 3.8-11.6 [facility] Leukocytes [#/volume] in Blo od by Automated countOrdered By: Renato Kumar on 11-15-2023 WBC (Bld) [#/Vol] 12.5 10*3/uL High 3.8-11.6 [facility] Comment on above: Performed By: #### C MP, LIPASE, CBC #### [address] Lipase [Enzymatic activity/v olume] in Serum or PlasmaOrdered By: Renato Kumar on 11-15-2023 Lipase [Catalytic activity/Vol] 14.0 U/L Normal 11.0-82.0 [facility] Comment on above: Result Comment: PERF ORMED BY: [place] [address] PATHOLOGIST BLEACHER KRAFT PULP GUERLINE STANLEY M.D. Performed By: #### C MP, LIPASE, CBC #### [address] Lymphocytes [#/volume] in Bl ood by Automated countOrdered By: Renato Kumar on 11-15-2023 Lymphocytes (Bld) [#/Vol] 2.4 10*3/uL Normal 1.00-4.8 [facility] Comment on above: Performed By: #### C MP, LIPASE, CBC #### [address] Lymphocytes/100 leukocytes i n Blood by Automated countOrdered By: Renato Kumar on 11-15-2023 Lymphocytes/100 WBC (Bld) 19.5 % Normal . [facility] Comment on above: Performed By: #### C MP, LIPASE, CBC #### [address] MCH [Entitic mass] by Automa taurus countOrdered By: Renato Kumar on 11-15-2023 MCH (RBC) [Entitic mass] 28.1 pg Normal 24.7-34.3 [facility] Comment on above: Performed By: #### C MP, LIPASE, CBC #### [address] MCHC Auto (RBC) [Mass/Vol]Or dered By: Renato Kumar on 11-15-2023 MCHC (RBC) [Mass/Vol] 33.2 g/dL 32.0-35.[address] [facility] MCV [Entitic volume] by Auto mated countOrdered By: Renato Kumar on 11-15-2023 MCV (RBC) [Entitic vol] 84.7 fL Normal 80-100 [facility] Comment on above: Performed By: #### C MP, LIPASE, CBC #### [address] Monocyte distribution width [Entitic volume] in Blood by AutomatedOrdered By: Renato Kumar on 11-15-2023 Monocyte distribution width Auto (Bld) [Entitic vol] 17.23 % 0.00-20.00 [facility] Neutrophils [#/volume] in Bl ood by Automated countOrdered By: Renato Kumar on 11-15-2023 Neutrophils (Bld) [#/Vol] 9.1 10*3/uL High 1.8-7.7 [facility] Comment on above: Performed By: #### C MP, LIPASE, CBC #### [facility] [address] Nitrite Test strip Ql (U)Ord ered By: Renato Kumar on 11-15-2023 Nitrite Ql (U) Negative Negative [facility] No Panel InformationOrdered By: Renato Kumar on 11-15-2023 Estimated GFR (CKD-EPI) > 60.0 mL/Min [facility] Creatinine Clearance (Chem 154.63 [facility] Nucleated erythrocytes [Pres ence] in Blood by Automated countOrdered By: Renato Kumar on 11-15-2023 Nucleated RBC Auto Ql (Bld) 0.1 /100{WBC} 0-0.5 [facility] Platelet mean volume [Entiti c volume] in Blood by Automated countOrdered By: Renato Kumar on 11-15-2023 Platelet mean volume (Bld) [Entitic vol] 9.6 fL Normal 6.3-10.7 [facility] Comment on above: Performed By: #### C MP, LIPASE, CBC #### [facility] [address] [place] [address] [place] Platelets [#/volume] in Bloo d by Automated countOrdered By: Renato Kumar on 11-15-2023 Platelets (Bld) [#/Vol] 287 10*3/uL Normal 150-450 [facility] Comment on above: Performed By: #### C MP, LIPASE, CBC #### [facility] [address] [place] [address] [place] Potassium [Moles/volume] in Serum or PlasmaOrdered By: Renato Kumar on 11-15-2023 Potassium [Moles/Vol] 4.0 mmol/L Normal 3.5-5.[address] [facility] Comment on above: Performed By: #### C MP, LIPASE, CBC #### [address] Protein Auto test strip (U) [Mass/Vol]Ordered By: Renato Kumar on 11-15-2023 Protein (U) [Mass/Vol] Negative Negative [facility] Protein [Mass/volume] in Ser um or PlasmaOrdered By: Renato Kumar on 11-15-2023 Protein [Mass/Vol] 6.6 g/dL Normal 6.4-8.9 [facility] Comment on above: Performed By: #### C MP, LIPASE, CBC #### [address] Serum globulin measurement b y calculation (mass/volume)Ordered By: Renato Kumar on 11-15-2023 Globulin (S) [Mass/Vol] 2.6 g/dL [facility] Comment on above: Performed By: #### C MP, LIPASE, CBC #### [address] Serum or plasma albumin/glob ulin mass ratioOrdered By: Renato Kumar on 11-15-2023 Albumin/Globulin [Mass ratio] 1.5 {ratio} [facility] Comment on above: Performed By: #### C MP, LIPASE, CBC #### [address] Serum or plasma anion gap de terminationOrdered By: Renato Kumar on 11-15-2023 Anion gap [Moles/Vol] 8.0 mmol/L Normal 6.0-15.[address] [facility] Comment on above: Performed By: #### C MP, LIPASE, CBC #### [address] Sodium [Moles/volume] in Ser um or PlasmaOrdered By: Renato Kumar on 11-15-2023 Sodium [Moles/Vol] 139 mmol/L Normal 136-145 [facility] Comment on above: Performed By: #### C MP, LIPASE, CBC #### [facility] [address] Specific gravity Auto test s trip (U) [Rel density]Ordered By: Renato Kumar on 11-15-2023 Specific gravity (U) [Rel density] 1.026 1.001-1.03 0 [facility] Urea nitrogen [Mass/volume] in Serum or PlasmaOrdered By: Renato Kumar on 11-15-2023 Urea nitrogen [Mass/Vol] 17 mg/dL Normal 7-25 [facility] Comment on above: Performed By: #### C MP, LIPASE, CBC #### [facility] [address] Urinalysison 11-15-2023 Appearance (U) Clear Normal Clear [facility] Comment on above: Order Comment: Name Collection Type:: Clean-Voided Midstream Performed By: #### U HCG, UA #### [address] Bilirubin,Urine Negative Normal Negative [facility] Comment on above: Order Comment: Name Collection Type:: Clean-Voided Midstream Performed By: #### U HCG, UA #### [address] Glucose Ql (U) Normal Normal Normal [facility] Comment on above: Order Comment: Name Collection Type:: Clean-Voided Midstream Performed By: #### U HCG, UA #### [address] Ketones Ql (U) Negative Normal Negative [facility] Comment on above: Order Comment: Name Collection Type:: Clean-Voided Midstream Performed By: #### U HCG, UA #### [place] [address] [place] Leukocyte esterase Test strip Ql (U) Negative Normal Negative [facility] Comment on above: Order Comment: Name Collection Type:: Clean-Voided Midstream Performed By: #### U HCG, UA #### [place] [address] [place] Nitrite,Urine Negative Normal Negative [facility] Comment on above: Order Comment: Name Collection Type:: Clean-Voided Midstream Performed By: #### U HCG, UA #### [facility] [address] [place] [address] [place] Occult Blood,Urine Negative Normal Negative [facility] Comment on above: Order Comment: Name Collection Type:: Clean-Voided Midstream Performed By: #### U HCG, UA #### [facility] [address] [place] [address] [place] Protein,Urine Negative Normal Negative [facility] Comment on above: Order Comment: Name Collection Type:: Clean-Voided Midstream Performed By: #### U HCG, UA #### [facility] [address] Specificy Hood,Urine 1.026 Normal 1.001-1.03 0 [facility] Comment on above: Order Comment: Name Collection Type:: Clean-Voided Midstream Performed By: #### U HCG, UA #### [facility] [address] [place] [address] Urobilinogen,Urine Normal Normal Normal [facility] Comment on above: Order Comment: Name Collection Type:: Clean-Voided Midstream Performed By: #### U HCG, UA #### [facility] [address] [place] [address] Urine clarity by refractomet ry automatedOrdered By: Renato Kumar on 11-15-2023 Clarity Refractometry automated (U) Clear Clear [facility] Urine glucose measurement by automated test strip (mass/volume)Ordered By: Renato Kumar on 11-15-2023 Glucose Auto test strip (U) [Mass/Vol] Normal mg/dL Normal [facility] Urine hemoglobin detection b y automated test stripOrdered By: Renato Kumar on 11-15-2023 Hemoglobin Auto test strip Ql (U) Negative Negative [facility] Urine leukocyte esterase det ection by automated test stripOrdered By: Renato Kumar on 11-15-2023 Leukocyte esterase Auto test strip Ql (U) Negative Negative [facility] Urine pH measurement by auto mated test stripOrdered By: Renato Kumar on 11-15-2023 pH (U) 6.5 [pH] Normal 5.0-9.0 [facility] Comment on above: Order Comment: Name Collection Type:: Clean-Voided Midstream Performed By: #### U HCG, UA #### [address] Urobilinogen Auto test strip (U) [Mass/Vol]Ordered By: Renato Kumar on 11-15-2023 Urobilinogen (U) [Mass/Vol] Normal mg/dL Normal [facility] XR chest 2V*on 08-05-2023 XR chest 2V* [facility] Main [place] [address] [place] [address] XRay Report Signed Patient: Ne Keita MR#: [id number] : 1985 Acct:[id number] Age/Sex: 38 / F ADM Date: 08/04/23 Loc: ER Room: Type: [facility] ER Attending Dr: Copies to: [...] Pedrito Alfredo M.D.08/05/2023 8:36 AM Dictation Location: [place] [address] Transcribed By: [facility] 08/05/23835 Dictated By: Pedrito Alfredo II, MD 08/05/23832 Signed By: 08/05/23835 Normal [facility] COVID CepheidOrdered By: Mildred Vang on 08-04-2023 SARS-CoV-2 (COVID-19) Ab IA Ql Negative Negative [facility] Comment on above: This is a duplicate Cepheid Xpert Xpress CoV-2/Flu/RSV Plus RNA by RT-PCR result to be used for statistical tracking purpose only. SARS-CoV-2 (COVID-19) RNA JUDIT+probe Ql (Unsp spec) [facility] COVID-19 / Flu A/B / RSV PCR [...] or Cepheid Disclaimer revoked sooner. PERFORMED BY: [place] [address] PATHOLOGIST BLEACHER KRA[employer] PULP GUERLINE STANLEY M.D. Normal [facility] Comment on above: Performed By: #### C EPHEID NEG, COVID19 FLU RSV #### [address] Cepheid COVID PCR Negativeon 08-04-2023 SARS-CoV-2 (COVID-19) RNA JUDIT+probe Ql (Unsp spec) Negative Normal Negative [facility] Comment on above: Result Comment: This is a duplicate Cepheid Xpert Xpress CoV-2/Flu/RSV Plus RNA by RT-PCR result to be used for statistical tracking purpose only. PERFORMED BY: [place] [address] PATHOLOGIST BLEACHER [employer] P[employer] GUERLINE STANLEY M.D. Performed By: #### U HCG, UA #### [address] Automated basophil %Ordered By: Mark Bar on 05-12-2023 Basophils/100 WBC (Bld) 1.3 % Normal . [facility] Comment on above: Performed By: #### C EPHEID NEG, COVID19 FLU RSV #### [address] Automated basophil countOrde red By: Mark Bar on 05-12-2023 Basophils (Bld) [#/Vol] 0.1 10*3/uL Normal 0.0-0.2 [facility] Comment on above: Performed By: #### C EPHEID NEG, COVID19 FLU RSV #### [address] Automated blood monocyte cou ntOrdered By: Mark Bar on 05-12-2023 Monocytes (Bld) [#/Vol] 0.6 10*3/uL Normal 0.0-0.8 [facility] Comment on above: Performed By: #### C EPHEID NEG, COVID19 FLU RSV #### [address] Automated eosinophil %Ordere d By: Mark Bar on 05-12-2023 Eosinophils/100 WBC (Bld) 1.0 % Normal . [facility] Comment on above: Performed By: #### C EPHEID NEG, COVID19 FLU RSV #### [address] Automated eosinophil countOr dered By: Mark Bar on 05-12-2023 Eosinophils (Bld) [#/Vol] 0.1 10*3/uL Normal 0.0-0.45 [facility] Comment on above: Performed By: #### C EPHEID NEG, COVID19 FLU RSV #### [address] Automated monocyte %Ordered By: Mark Bar on 05-12-2023 Monocytes/100 WBC (Bld) 5.7 % Normal . [facility] Comment on above: Performed By: #### C EPHEID NEG, COVID19 FLU RSV #### [address] Automated neutrophil %Ordere d By: Mark Bar on 05-12-2023 Neutrophils/100 WBC (Bld) 69.6 % Normal . [facility] Comment on above: Performed By: #### C EPHEID NEG, COVID19 FLU RSV #### [address] Basic Metabolic Panelon 04-27 Creatinine Clr Calc Pharmacy 177.95 Normal [facility] Comment on above: Result Comment: PERF ORMED BY: [place] [address] PATHOLOGIST BLEACHER K[employer] PULP GUERLINE STANLEY M.D. Performed By: #### C EPHEID NEG, COVID19 FLU RSV #### [address] GFR/1.73 sq M.predicted MDRD (S/P/Bld) [Vol rate/Area] mL/min/{1.73_m2} Normal [facility] Comment on above: Performed By: #### C EPHEID NEG, COVID19 FLU RSV #### [address] COVID-19 Antigenon 3 COVID-19 Antigen [facility] [...] developed and its performance characteristic determined by [employer] and validated at [facility]. This test has not been FDA cleared [...] for SARS Antigen by JESSICA PERFORMED BY: [place] [address] PATHOLOGIST BLEACHER K[employer] PUL[employer] GUERLINE STANLEY M.D. Normal [facility] Comment on above: Performed By: #### C EPHEID NEG, COVID19 FLU RSV #### [facility] [address] [place] [address] COVID-19 SOFIAOrdered By: Ismael Bar on 05-12-2023 SARS-CoV+SARS-CoV-2 (COVID-19) Ag IA.rapid Ql (Resp) Negative Negative [facility] Comment on above: This is a duplicate Laura SARS Antigen (JESSICA) result to be used for statistical tracking purpose only. Calcium [Mass/volume] in Ser um or PlasmaOrdered By: Mark Bar on 05-12-2023 Calcium [Mass/Vol] 8.9 mg/dL Normal 8.6-10.3 [facility] Comment on above: Performed By: #### C EPHEID NEG, COVID19 FLU RSV #### [address] Carbon dioxide, total [Moles /volume] in Serum or PlasmaOrdered By: Mark Bar on 05-12-2023 CO2 [Moles/Vol] 24.0 mmol/L Normal 21.0-31.0 [facility] Comment on above: Performed By: #### C EPHEID NEG, COVID19 FLU RSV #### [address] Chloride [Moles/volume] in S gale or PlasmaOrdered By: Mark Bar on 05-12-2023 Chloride [Moles/Vol] 107 mmol/L Normal 98-107 [facility] Comment on above: Performed By: #### C EPHEID NEG, COVID19 FLU RSV #### [address] Creatinine [Mass/volume] in Serum or PlasmaOrdered By: Mark Bar on 05-12-2023 Creatinine [Mass/Vol] 0.55 mg/dL Low 0.60-1.[address] [facility] Comment on above: Performed By: #### C EPHEID NEG, COVID19 FLU RSV #### [place] [address] [place] Erythrocyte distribution wid th [Ratio] by Automated countOrdered By: Mark Bar on 05-12-2023 Erythrocyte distribution width (RBC) [Ratio] 15.5 % High 11.9-15.3 [facility] Comment on above: Performed By: #### C EPHEID NEG, COVID19 FLU RSV #### [facility] [address] [place] [address] [place] Erythrocytes [#/volume] in B lood by Automated countOrdered By: Mark Bar on 05-12-2023 RBC (Bld) [#/Vol] 5.44 10*6/uL High 3.60-5.00 [facility] Comment on above: Performed By: #### C EPHEID NEG, COVID19 FLU RSV #### [facility] [address] [place] [address] [place] Glucose [Mass/volume] in Ser um or PlasmaOrdered By: Mark Bar on 05-12-2023 Glucose [Mass/Vol] 92 mg/dL Normal 70-100 [facility] Comment on above: ADA recommended refe rence rangeRandom Glucose Reference Range is dependent on time and content of last meal. Glucose of more than 200 mg/dL in a nonstressed, ambulatory subject supports the diagnosis of Diabetes Mellitus. Result Comment: [place] om Glucose Reference Range is dependent on time and content of last meal. Glucose of more than 200 mg/dL in a nonstressed, ambulatory subject supports the diagnosis of Diabetes Mellitus. ADA recommended reference range Performed By: #### C EPHEID NEG, COVID19 FLU RSV #### [facility] [address] [place] [address] [place] Hematocrit [Volume Fraction] of Blood by Automated countOrdered By: Mark Bar on 05-12-2023 Hematocrit (Bld) [Volume fraction] 45.7 % Normal 34.0-46.4 [facility] Comment on above: Performed By: #### C EPHEID NEG, COVID19 FLU RSV #### [facility] [address] [place] [address] [place] Hemoglobin [Mass/volume] in BloodOrdered By: Mark Bar on 05-12-2023 Hemoglobin (Bld) [Mass/Vol] 15.2 g/dL Normal 11.8-15.4 [facility] Comment on above: Performed By: #### C EPHEID NEG, COVID19 FLU RSV #### [address] Leukocytes [#/volume] correc taurus for nucleated erythrocytes in Blood by Automated counOrdered By: Mark Bar on 05-12-2023 WBC corrected for nucl RBC Auto (Bld) [#/Vol] 9.9 10*3/uL 3.8-11.6 [facility] Leukocytes [#/volume] in Blo od by Automated countOrdered By: Mark Bar on 05-12-2023 WBC (Bld) [#/Vol] 9.9 10*3/uL Normal 3.8-11.6 [facility] Comment on above: Performed By: #### C EPHEID NEG, COVID19 FLU RSV #### [place] [address] [place] Lymphocytes [#/volume] in Bl ood by Automated countOrdered By: Mark Bar on 05-12-2023 Lymphocytes (Bld) [#/Vol] 2.2 10*3/uL Normal 1.00-4.8 [facility] Comment on above: Performed By: #### C EPHEID NEG, COVID19 FLU RSV #### [place] [address] [place] Lymphocytes/100 leukocytes i n Blood by Automated countOrdered By: Mark Bar on 05-12-2023 Lymphocytes/100 WBC (Bld) 22.4 % Normal . [facility] Comment on above: Performed By: #### C EPHEID NEG, COVID19 FLU RSV #### [place] [address] [place] MCH [Entitic mass] by Automa taurus countOrdered By: Mark Bar on 05-12-2023 MCH (RBC) [Entitic mass] 27.9 pg Normal 24.7-34.3 [facility] Comment on above: Performed By: #### C EPHEID NEG, COVID19 FLU RSV #### [address] [place] [address] [place] MCHC Auto (RBC) [Mass/Vol]Or dered By: Mark Bar on 05-12-2023 MCHC (RBC) [Mass/Vol] 33.2 g/dL 32.0-35.[address] [facility] MCV [Entitic volume] by Auto mated countOrdered By: Mark Bar on 05-12-2023 MCV (RBC) [Entitic vol] 84.1 fL Normal 80-100 [facility] Comment on above: Performed By: #### C EPHEID NEG, COVID19 FLU RSV #### [facility] [address] [place] [address] Monocyte distribution width [Entitic volume] in Blood by AutomatedOrdered By: Mark Bar on 05-12-2023 Monocyte distribution width Auto (Bld) [Entitic vol] 19.20 % 0.00-20.00 [facility] Neutrophils [#/volume] in Bl ood by Automated countOrdered By: Mark Bar on 05-12-2023 Neutrophils (Bld) [#/Vol] 6.9 10*3/uL Normal 1.8-7.7 [facility] Comment on above: Performed By: #### C EPHEID NEG, COVID19 FLU RSV #### [facility] [address] [place] [address] No Panel InformationOrdered By: Mark Bar on 05-12-2023 Estimated GFR (CKD-EPI) > 60.0 mL/Min [facility] Creatinine Clearance (Chem 177.95 [facility] SARS Antigen (LFIA) [facility] Nucleated erythrocytes [Pres ence] in Blood by Automated countOrdered By: Mark Bar on 05-12-2023 Nucleated RBC Auto Ql (Bld) 0.1 /100{WBC} 0-0.5 [facility] Platelet adequacy [Presence] in Blood by Light microscopyOrdered By: Mark Bar on 05-12-2023 Platelets LM Ql (Bld) Normal Normal [facility] Platelet mean volume [Entiti c volume] in Blood by Automated countOrdered By: Mark Bar on 05-12-2023 Platelet mean volume (Bld) [Entitic vol] 9.9 fL Normal 6.3-10.7 [facility] Comment on above: Performed By: #### C EPHEID NEG, COVID19 FLU RSV #### [address] Platelet morphology finding [Identifier] in BloodOrdered By: Mark Bar on 05-12-2023 Platelet morphology finding Nom (Bld) N/A [facility] Platelets Large [Presence] i n Blood by Light microscopyOrdered By: Mark Bar on 05-12-2023 Platelets Large LM Ql (Bld) Slight [facility] Platelets [#/volume] in Bloo d by Automated countOrdered By: Mark Bar on 05-12-2023 Platelets (Bld) [#/Vol] 245 10*3/uL Normal 150-450 [facility] Comment on above: Performed By: #### C EPHEID NEG, COVID19 FLU RSV #### [address] Potassium [Moles/volume] in Serum or PlasmaOrdered By: Mark Bar on 05-12-2023 Potassium [Moles/Vol] 4.1 mmol/L Normal 3.5-5.[address] [facility] Comment on above: Performed By: #### C EPHEID NEG, COVID19 FLU RSV #### [address] RBC morphologyOrdered By: Ismael Bar on 05-12-2023 RBC morphology finding Nom (Bld) Normal Normal Normal [facility] Comment on above: Performed By: #### C EPHEID NEG, COVID19 FLU RSV #### [facility] [address] [place] [address] Scan and CBCon 05-12-2023 Large Platelets Slight Normal [facility] Comment on above: Result Comment: PERF ORMED BY: [place] [address] PATHOLOGIST BLEACHER [employer]RA[employer] PULP GUERLINE STANLEY M.D. Performed By: #### C EPHEID NEG, COVID19 FLU RSV #### [address] Mean Corpuscular HGB Conc 33.2 g/dL Normal 32.0-35.0 [facility] Comment on above: Performed By: #### C EPHEID NEG, COVID19 FLU RSV #### [address] Monocytes/100 WBC (Bld) 19.20 % Normal 0.00-20.00 [facility] Comment on above: Performed By: #### C EPHEID NEG, COVID19 FLU RSV #### [address] NRBC% 0.1 /100{WBC} Normal 0-0.5 [facility] Comment on above: Performed By: #### C EPHEID NEG, COVID19 FLU RSV #### [address] Platelet Estimate Normal Normal Normal [facility] Comment on above: Performed By: #### C EPHEID NEG, COVID19 FLU RSV #### [address] Serum or plasma anion gap de terminationOrdered By: Mark Bar on 05-12-2023 Anion gap [Moles/Vol] 11.1 mmol/L Normal 6.0-15.0 [facility] Comment on above: Performed By: #### C EPHEID NEG, COVID19 FLU RSV #### [address] Sodium [Moles/volume] in Ser um or PlasmaOrdered By: Mark Bar on 05-12-2023 Sodium [Moles/Vol] 138 mmol/L Normal 136-145 [facility] Comment on above: Performed By: #### C EPHEID NEG, COVID19 FLU RSV #### [address] Lauar Ag Negativeon 05-12-20 23 Laura Ag Negative Negative Normal Negative [facility] Comment on above: Result Comment: This is a duplicate Laura SARS Antigen (JESSICA) result to be used for statistical tracking purpose only. PERFORMED BY: [place] [address] PATHOLOGIST BLEACHER [employer]RA[employer] PUL[employer] GUERLINE STANLEY M.D. Performed By: #### C EPHEID NEG, COVID19 FLU RSV #### [place] [id number] [facility] Troponin I High Sensitivityo n 05-12-2023 Troponin I High Sensitivity 2.8 pg/mL Normal 0.0-15.0 [facility] Comment on above: Result Comment: PERF ORMED BY: [place] [address] PATHOLOGIST BLEACHER KRA[employer] PUL[employer] GUERLINE STANLEY M.D. Performed By: #### C EPHEID NEG, COVID19 FLU RSV #### [address] [address] [facility] Troponin I.cardiac [Mass/vol ume] in Serum or Plasma by Detection limit <= 0.01 ng/Ordered By: Mark Bar on 05-12-2023 Troponin I.cardiac DL <= 0.01 ng/mL [Mass/Vol] 2.8 pg/mL 0.0-15.0 [facility] Urea nitrogen [Mass/volume] in Serum or PlasmaOrdered By: Mark Bar on 05-12-2023 Urea nitrogen [Mass/Vol] 14 mg/dL Normal 7-25 [facility] Comment on above: Performed By: #### C EPHEID NEG, COVID19 FLU RSV #### [place] [id number] [place] XR chest 2V*on 05-12-2023 XR chest 2V* [facility] [place] [address] [place] [address] XRay Report Signed Patient: Ne Keita MR#: [id number] : 1985 Acct:[id number] Age/Sex: 37 / F ADM Date: 05/12/23 Loc: ER Room: Type: [facility] ER Attending Dr: Copies to: [...] Yanni Hernandez M.D.05/12/2023 6:55 PM Dictation Location: [place] [address] Transcribed By: LIVIER 05/12/231854 Dictated By: Yanni Hernandez MD 05/12/231853 Signed By: 05/12/231854 Normal [facility] Alanine aminotransferase [En zymatic activity/volume] in Serum or PlasmaOrdered By: Jah Almonte on 03-05-2023 ALT [Catalytic activity/Vol] 17 U/L 7-52 [facility] Albumin [Mass/volume] in Ser um or Plasma by Bromocresol green (BCG) dye binding methoOrdered By: Jah Almonte on 03-05-2023 Albumin BCG dye [Mass/Vol] 4.2 g/dL 3.5-5.7 [facility] Alkaline phosphatase [Enzyma tic activity/volume] in Serum or PlasmaOrdered By: Jah Almonte on 03-05-2023 ALP [Catalytic activity/Vol] 87 U/L 34-104 [facility] Aspartate aminotransferase [ Enzymatic activity/volume] in Serum or PlasmaOrdered By: Jah Almonte on 03-05-2023 AST [Catalytic activity/Vol] 14 U/L 13-39 [facility] Basophils Auto (Bld) [#/Vol] Ordered By: Jah Almonte on 03-05-2023 Basophils (Bld) [#/Vol] 0.1 10*3/uL 0.0-0.2 [facility] Basophils/100 WBC Auto (Bld) Ordered By: Jah Almonte on 03-05-2023 Basophils/100 WBC (Bld) 0.9 % . [facility] Bilirubin.total [Mass/volume ] in Serum or PlasmaOrdered By: Jah Almonte on 03-05-2023 Bilirubin [Mass/Vol] 0.3 mg/dL 0.3-1.0 [facility] Calcium [Mass/volume] in Ser um or PlasmaOrdered By: Jah Almonte on 03-05-2023 Calcium [Mass/Vol] 8.7 mg/dL 8.6-10.3 [facility] Carbon dioxide, total [Moles /volume] in Serum or PlasmaOrdered By: Jah Almonte on 03-05-2023 CO2 [Moles/Vol] 25.5 mmol/L 21.0-31.0 [facility] Chloride [Moles/volume] in S gale or PlasmaOrdered By: Jah Almonte on 03-05-2023 Chloride [Moles/Vol] 107 mmol/L 98-107 [facility] Creatinine [Mass/volume] in Serum or PlasmaOrdered By: Jah Almonte on 03-05-2023 Creatinine [Mass/Vol] 0.60 mg/dL 0.60-1.[address] [facility] Eosinophils Auto (Bld) [#/Vo l]Ordered By: Jah Almonte on 03-05-2023 Eosinophils (Bld) [#/Vol] 0.1 10*3/uL 0.0-0.45 [facility] Eosinophils/100 WBC Auto (Bl d)Ordered By: Jah Almonte on 03-05-2023 Eosinophils/100 WBC (Bld) 0.9 % . [facility] Erythrocyte distribution wid th Auto (RBC) [Ratio]Ordered By: Jah Almonte on 03-05-2023 Erythrocyte distribution width (RBC) [Ratio] 17.6 % 11.9-15.3 [facility] Globulin Calc (S) [Mass/Vol] Ordered By: Jah Almonte on 03-05-2023 Globulin (S) [Mass/Vol] 2.6 g/dL [facility] Glucose [Mass/volume] in Ser um or PlasmaOrdered By: Jah Almonte on 03-05-2023 Glucose [Mass/Vol] 109 mg/dL 70-100 [facility] Comment on above: ADA recommended refe rence rangeRandom Glucose Reference Range is dependent on time and content of last meal. Glucose of more than 200 mg/dL in a nonstressed, ambulatory subject supports the diagnosis of Diabetes Mellitus. Hematocrit Auto (Bld) [Volum e fraction]Ordered By: Jah Almonte on 03-05-2023 Hematocrit (Bld) [Volume fraction] 41.9 % 34.0-46.4 [facility] Hemoglobin [Mass/volume] in BloodOrdered By: Jah Almonte on 03-05-2023 Hemoglobin (Bld) [Mass/Vol] 13.7 g/dL 11.8-15.4 [facility] Leukocytes [#/volume] correc taurus for nucleated erythrocytes in Blood by Automated counOrdered By: Jah Almonte on 03-05-2023 WBC corrected for nucl RBC Auto (Bld) [#/Vol] 13.7 10*3/uL 3.8-11.6 [facility] Lymphocytes Auto (Bld) [#/Vo l]Ordered By: Jah Almonte on 03-05-2023 Lymphocytes (Bld) [#/Vol] 2.6 10*3/uL 1.00-4.8 [facility] Lymphocytes/100 WBC Auto (Bl d)Ordered By: Jah Almonte on 03-05-2023 Lymphocytes/100 WBC (Bld) 18.9 % . [facility] MCH Auto (RBC) [Entitic mass ]Ordered By: Jah Almonte on 03-05-2023 MCH (RBC) [Entitic mass] 26.7 pg 24.7-34.3 [facility] MCHC Auto (RBC) [Mass/Vol]Or dered By: Jah Almonte on 03-05-2023 MCHC (RBC) [Mass/Vol] 32.7 g/dL 32.0-35.[address] [facility] MCV Auto (RBC) [Entitic vol] Ordered By: Jah Almonte on 03-05-2023 MCV (RBC) [Entitic vol] 81.6 fL 80-100 [facility] Magnesium [Mass/volume] in S gale or PlasmaOrdered By: Jah Almonte on 03-05-2023 Magnesium [Mass/Vol] 1.9 mg/dL 1.9-2.7 [facility] Monocyte distribution width [Entitic volume] in Blood by AutomatedOrdered By: Jah Almonte on 03-05-2023 Monocyte distribution width Auto (Bld) [Entitic vol] 16.68 % 0.00-20.00 [facility] Monocytes Auto (Bld) [#/Vol] Ordered By: Jah Almonte on 03-05-2023 Monocytes (Bld) [#/Vol] 0.7 10*3/uL 0.0-0.8 [facility] Monocytes/100 WBC Auto (Bld) Ordered By: Jah Almonte on 03-05-2023 Monocytes/100 WBC (Bld) 5.1 % . [facility] Neutrophils Auto (Bld) [#/Vo l]Ordered By: Jah Almonte on 03-05-2023 Neutrophils (Bld) [#/Vol] 10.2 10*3/uL 1.8-7.7 [facility] Neutrophils/100 WBC Auto (Bl d)Ordered By: Jah Almonte on 03-05-2023 Neutrophils/100 WBC (Bld) 74.2 % . [facility] No Panel InformationOrdered By: Jah Almonte on 03-05-2023 Estimated GFR (CKD-EPI) > 60.0 mL/Min [facility] Creatinine Clearance (Chem 162.80 [facility] Nucleated erythrocytes [Pres ence] in Blood by Automated countOrdered By: Jah Almonte on 03-05-2023 Nucleated RBC Auto Ql (Bld) 0.0 /100{WBC} 0-0.5 [facility] Platelet adequacy [Presence] in Blood by Light microscopyOrdered By: Jah Almonte on 03-05-2023 Platelets LM Ql (Bld) Normal Normal [facility] Platelet mean volume Auto (B ld) [Entitic vol]Ordered By: Jah Almonte on 03-05-2023 Platelet mean volume (Bld) [Entitic vol] 9.5 fL 6.3-10.7 [facility] Platelet morphology finding [Identifier] in BloodOrdered By: Jah Almonte on 03-05-2023 Platelet morphology finding Nom (Bld) Normal Normal [facility] Platelets Auto (Bld) [#/Vol] Ordered By: Jah Almonte on 03-05-2023 Platelets (Bld) [#/Vol] 256 10*3/uL 150-450 [facility] Potassium [Moles/volume] in Serum or PlasmaOrdered By: Jah Almonte on 03-05-2023 Potassium [Moles/Vol] 3.4 mmol/L 3.5-5.[address] [facility] Protein [Mass/volume] in Ser um or PlasmaOrdered By: Jah Almonte on 03-05-2023 Protein [Mass/Vol] 6.8 g/dL 6.4-8.9 [facility] [facility] RBC Auto (Bld) [#/Vol]Ordere d By: Jah Almonte on 03-05-2023 RBC (Bld) [#/Vol] 5.13 10*6/uL 3.60-5.00 [facility] RBC morphologyOrdered By: Cali Almonte on 03-05-2023 RBC morphology finding Nom (Bld) Normal Normal [facility] Serum or plasma albumin/glob ulin mass ratioOrdered By: Jah Almonte on 03-05-2023 Albumin/Globulin [Mass ratio] 1.6 {ratio} [facility] Serum or plasma anion gap de terminationOrdered By: Jah Almonte on 03-05-2023 Anion gap [Moles/Vol] 9.9 mmol/L 6.0-15.[address] [facility] Sodium [Moles/volume] in Ser um or PlasmaOrdered By: Jah Almonte on 03-05-2023 Sodium [Moles/Vol] 139 mmol/L 136-145 [facility] Urea nitrogen [Mass/volume] in Serum or PlasmaOrdered By: Jah Almonte on 03-05-2023 Urea nitrogen [Mass/Vol] 15 mg/dL 7-25 [facility] WBC Auto (Bld) [#/Vol]Ordere d By: Jah Almonte on 03-05-2023 WBC (Bld) [#/Vol] 13.7 10*3/uL 3.8-11.6 [facility] Activated partial thrombopla stin time (aPTT) in platelet poor plasma by coagulation aOrdered By: Farhat Castro on 02-05-2023 aPTT Coag (PPP) [Time] 29.9 s 25.1-36.5 [facility] Anisocytosis LM Ql (Bld)Orde red By: Farhat Castro on 02-05-2023 Anisocytosis Ql (Bld) Marked [facility] Basophils Auto (Bld) [#/Vol] Ordered By: Farhat Castro on 02-05-2023 Basophils (Bld) [#/Vol] 0.1 10*3/uL 0.0-0.2 [facility] Basophils/100 WBC Auto (Bld) Ordered By: Farhat Castro on 02-05-2023 Basophils/100 WBC (Bld) 0.9 % . [facility] COVID CepheidOrdered By: Grace Castro on 02-05-2023 SARS-CoV-2 (COVID-19) Ab IA Ql Negative Negative [facility] Comment on above: This is a duplicate [employer] Xpert Xpress CoV-2/Flu/RSV Plus RNA by RT-PCR result to be used for statistical tracking purpose only. SARS-CoV-2 (COVID-19) RNA JUDIT+probe Ql (Unsp spec) [facility] Calcium [Mass/volume] in Ser um or PlasmaOrdered By: Farhat Castro on 02-05-2023 Calcium [Mass/Vol] 9.2 mg/dL 8.6-10.3 [facility] Carbon dioxide, total [Moles /volume] in Serum or PlasmaOrdered By: Farhat Castro on 02-05-2023 CO2 [Moles/Vol] 23.5 mmol/L 21.0-31.0 [facility] Chloride [Moles/volume] in S gale or PlasmaOrdered By: Farhat Castro on 02-05-2023 Chloride [Moles/Vol] 107 mmol/L 98-107 [facility] Creatine kinase [Enzymatic a ctivity/volume] in Serum or PlasmaOrdered By: Farhat Castro on 02-05-2023 CK [Catalytic activity/Vol] 53 U/L 30-223 [facility] Creatinine [Mass/volume] in Serum or PlasmaOrdered By: Farhat Castro on 02-05-2023 Creatinine [Mass/Vol] 0.55 mg/dL 0.60-1.[address] [facility] Eosinophils Auto (Bld) [#/Vo l]Ordered By: Farhat Castro on 02-05-2023 Eosinophils (Bld) [#/Vol] 0.1 10*3/uL 0.0-0.45 [facility] Eosinophils/100 WBC Auto (Bl d)Ordered By: Farhat Castro on 02-05-2023 Eosinophils/100 WBC (Bld) 0.8 % . [facility] Erythrocyte distribution wid th Auto (RBC) [Ratio]Ordered By: Farhat Castro on 02-05-2023 Erythrocyte distribution width (RBC) [Ratio] 18.2 % 11.9-15.3 [facility] Glucose [Mass/volume] in Ser um or PlasmaOrdered By: Farhat Castro on 02-05-2023 Glucose [Mass/Vol] 104 mg/dL 70-100 [facility] Comment on above: ADA recommended refe rence rangeRandom Glucose Reference Range is dependent on time and content of last meal. Glucose of more than 200 mg/dL in a nonstressed, ambulatory subject supports the diagnosis of Diabetes Mellitus. Hematocrit Auto (Bld) [Volum e fraction]Ordered By: Farhat Castro on 02-05-2023 Hematocrit (Bld) [Volume fraction] 43.5 % 34.0-46.4 [facility] Hemoglobin [Mass/volume] in BloodOrdered By: Farhat Castro on 02-05-2023 Hemoglobin (Bld) [Mass/Vol] 13.9 g/dL 11.8-15.4 [facility] Laboratory - CoagulationOrde red By: Farhat Castro on 02-05-2023 PT Coag (PPP) [Time] 11.5 s 9.0-12.9 [facility] Leukocytes [#/volume] correc taurus for nucleated erythrocytes in Blood by Automated counOrdered By: Farhat Castro on 02-05-2023 WBC corrected for nucl RBC Auto (Bld) [#/Vol] 13.3 10*3/uL 3.8-11.6 [facility] Lymphocytes Auto (Bld) [#/Vo l]Ordered By: Farhat Castro on 02-05-2023 Lymphocytes (Bld) [#/Vol] 2.5 10*3/uL 1.00-4.8 [facility] Lymphocytes/100 WBC Auto (Bl d)Ordered By: Farhat Castro on 02-05-2023 Lymphocytes/100 WBC (Bld) 18.5 % . [facility] MCH Auto (RBC) [Entitic mass ]Ordered By: Farhat Castro on 02-05-2023 MCH (RBC) [Entitic mass] 25.5 pg 24.7-34.3 [facility] MCHC Auto (RBC) [Mass/Vol]Or dered By: Farhat Castro on 02-05-2023 MCHC (RBC) [Mass/Vol] 32.0 g/dL 32.0-35.[address] [facility] MCV Auto (RBC) [Entitic vol] Ordered By: Farhat Castro on 02-05-2023 MCV (RBC) [Entitic vol] 79.8 fL 80-100 [facility] Microcytes LM Ql (Bld)Ordere d By: Farhat Castro on 02-05-2023 Microcytes Ql (Bld) Slight [facility] Monocyte distribution width [Entitic volume] in Blood by AutomatedOrdered By: Farhat Castro on 02-05-2023 Monocyte distribution width Auto (Bld) [Entitic vol] 17.41 % 0.00-20.00 [facility] Monocytes Auto (Bld) [#/Vol] Ordered By: Farhat Castro on 02-05-2023 Monocytes (Bld) [#/Vol] 0.7 10*3/uL 0.0-0.8 [facility] Monocytes/100 WBC Auto (Bld) Ordered By: Farhat Castro on 02-05-2023 Monocytes/100 WBC (Bld) 5.6 % . [facility] Natriuretic peptide B [Mass/ Vol]Ordered By: Farhat Castro on 02-05-2023 Natriuretic peptide B (Bld) [Mass/Vol] 23.0 pg/mL 5-100 [facility] Neutrophils Auto (Bld) [#/Vo l]Ordered By: Farhat Castro on 02-05-2023 Neutrophils (Bld) [#/Vol] 9.9 10*3/uL 1.8-7.7 [facility] Neutrophils/100 WBC Auto (Bl d)Ordered By: Farhat Castro on 02-05-2023 Neutrophils/100 WBC (Bld) 74.2 % . [facility] No Panel InformationOrdered By: Farhat Castro on 02-05-2023 Estimated GFR (CKD-EPI) > 60.0 mL/Min [facility] Creatinine Clearance (Chem 175.68 [facility] Nucleated erythrocytes [Pres ence] in Blood by Automated countOrdered By: Farhat Castro on 02-05-2023 Nucleated RBC Auto Ql (Bld) 0.1 /100{WBC} 0-0.5 [facility] Platelet adequacy [Presence] in Blood by Light microscopyOrdered By: Farhat Castro on 02-05-2023 Platelets LM Ql (Bld) Normal Normal [facility] Platelet mean volume Auto (B ld) [Entitic vol]Ordered By: Farhat Castro on 02-05-2023 Platelet mean volume (Bld) [Entitic vol] 9.8 fL 6.3-10.7 [facility] Platelet morphology finding [Identifier] in BloodOrdered By: Farhat Castro on 02-05-2023 Platelet morphology finding Nom (Bld) Normal Normal [facility] Platelet poor plasma interna tional normalized ratio (INR) by coagulation assay (relatOrdered By: Farhat Castro on 02-05-2023 INR Coag (PPP) [Relative time] 1.0 {INR} [facility] Comment on above: INR Therapeutic Rang e [...] 02-05-2023 Platelets (Bld) [#/Vol] 240 10*3/uL 150-450 [facility] Potassium [Moles/volume] in Serum or PlasmaOrdered By: Farhat Castro on 02-05-2023 Potassium [Moles/Vol] 4.4 mmol/L 3.5-5.[address] [facility] RBC Auto (Bld) [#/Vol]Ordere d By: Farhat Castro on 02-05-2023 RBC (Bld) [#/Vol] 5.45 10*6/uL 3.60-5.00 [facility] RBC morphologyOrdered By: Andrea Castro on 02-05-2023 RBC morphology finding Nom (Bld) N/A [facility] Serum or plasma anion gap de terminationOrdered By: Farhat Castro on 02-05-2023 Anion gap [Moles/Vol] 10.9 mmol/L 6.0-15.0 [facility] Sodium [Moles/volume] in Ser um or PlasmaOrdered By: Farhat Castro on 02-05-2023 Sodium [Moles/Vol] 137 mmol/L 136-145 [facility] Troponin I.cardiac [Mass/vol ume] in Serum or Plasma by Detection limit <= 0.01 ng/Ordered By: Farhat Castro on 02-05-2023 Troponin I.cardiac DL <= 0.01 ng/mL [Mass/Vol] 4.0 pg/mL 0.0-15.0 [facility] Urea nitrogen [Mass/volume] in Serum or PlasmaOrdered By: Farhat Castro on 02-05-2023 Urea nitrogen [Mass/Vol] 16 mg/dL 7-25 [facility] WBC Auto (Bld) [#/Vol]Ordere d By: Farhat Castro on 02-05-2023 WBC (Bld) [#/Vol] 13.3 10*3/uL 3.8-11.6 [facility] Bilirubin Test strip Ql (U)O rdered By: Damien Rashid on 01-15-2023 Bilirubin Ql (U) Negative Negative [facility] Color Auto (U)Ordered By: Ismael Rashid on 01-15-2023 Color (U) Yellow Yellow [facility] HCG ( test) IA.rapi d Ql (U)Ordered By: Damien Rashid on 01-15-2023 HCG ( test) Ql (U) Negative [facility] Ketones Auto test strip (U) [Mass/Vol]Ordered By: Damien Rashid on 01-15-2023 Ketones (U) [Mass/Vol] Negative Negative [facility] Nitrite Test strip Ql (U)Ord ered By: Damien Rashid on 01-15-2023 Nitrite Ql (U) Negative Negative [facility] Potassium [Moles/volume] in Serum or PlasmaOrdered By: Damien Rashid on 01-15-2023 Potassium [Moles/Vol] 3.6 mmol/L 3.5-5.[address] [facility] Protein Auto test strip (U) [Mass/Vol]Ordered By: Damien Rashid on 01-15-2023 Protein (U) [Mass/Vol] Negative Negative [facility] Specific gravity Auto test s trip (U) [Rel density]Ordered By: Damien Rashid on 01-15-2023 Specific gravity (U) [Rel density] 1.017 1.001-1.03 0 [facility] Troponin I.cardiac [Mass/vol ume] in Serum or Plasma by Detection limit <= 0.01 ng/Ordered By: Damien Rashid on 01-15-2023 Troponin I.cardiac DL <= 0.01 ng/mL [Mass/Vol] 3.7 pg/mL 0.0-15.0 [facility] Urine clarity by refractomet ry automatedOrdered By: Damien Rashid on 01-15-2023 Clarity Refractometry automated (U) Clear Clear [facility] Urine glucose measurement by automated test strip (mass/volume)Ordered By: Damien Rashid on 01-15-2023 Glucose Auto test strip (U) [Mass/Vol] Normal mg/dL Normal [facility] Urine hemoglobin detection b y automated test stripOrdered By: Damien Rashid on 01-15-2023 Hemoglobin Auto test strip Ql (U) Negative Negative [facility] Urine leukocyte esterase det ection by automated test stripOrdered By: Damien Rashid on 01-15-2023 Leukocyte esterase Auto test strip Ql (U) Negative Negative [facility] Urobilinogen Auto test strip (U) [Mass/Vol]Ordered By: Damien Rashid on 01-15-2023 Urobilinogen (U) [Mass/Vol] Normal mg/dL Normal [facility] pH Auto test strip (U)Ordere d By: Damien Rashid on 01-15-2023 pH (U) 6.0 [pH] 5.0-9.0 [facility] Activated partial thrombopla stin time (aPTT) in platelet poor plasma by coagulation aOrdered By: Damien Rashid on 01-14-2023 aPTT Coag (PPP) [Time] 31.3 s 25.1-36.5 [facility] Basophils Auto (Bld) [#/Vol] Ordered By: Damien Rashid on 01-14-2023 Basophils (Bld) [#/Vol] 0.1 10*3/uL 0.0-0.2 [facility] Basophils/100 WBC Auto (Bld) Ordered By: Damien Rashid on 01-14-2023 Basophils/100 WBC (Bld) 1.0 % . [facility] Calcium [Mass/volume] in Ser um or PlasmaOrdered By: Damien Rashid on 01-14-2023 Calcium [Mass/Vol] 9.1 mg/dL 8.6-10.3 [facility] Carbon dioxide, total [Moles /volume] in Serum or PlasmaOrdered By: Damien Rashid on 01-14-2023 CO2 [Moles/Vol] 24.4 mmol/L 21.0-31.0 [facility] Chloride [Moles/volume] in S gale or PlasmaOrdered By: Damien Rashid on 01-14-2023 Chloride [Moles/Vol] 105 mmol/L 98-107 [facility] Creatinine [Mass/volume] in Serum or PlasmaOrdered By: Damien Rashid on 01-14-2023 Creatinine [Mass/Vol] 0.61 mg/dL 0.60-1.[address] [facility] Eosinophils Auto (Bld) [#/Vo l]Ordered By: Damien Rashid on 01-14-2023 Eosinophils (Bld) [#/Vol] 0.1 10*3/uL 0.0-0.45 [facility] Eosinophils/100 WBC Auto (Bl d)Ordered By: Damien Rashid on 01-14-2023 Eosinophils/100 WBC (Bld) 0.8 % . [facility] Erythrocyte distribution wid th Auto (RBC) [Ratio]Ordered By: Damien Rashid on 01-14-2023 Erythrocyte distribution width (RBC) [Ratio] 18.9 % 11.9-15.3 [facility] Glucose [Mass/volume] in Ser um or PlasmaOrdered By: Damien Rashid on 01-14-2023 Glucose [Mass/Vol] 91 mg/dL 74-109 [facility] Comment on above: ADA recommended refe rence rangeRandom Glucose Reference Range is dependent on time and content of last meal. Glucose of more than 200 mg/dL in a nonstressed, ambulatory subject supports the diagnosis of Diabetes Mellitus. Hematocrit Auto (Bld) [Volum e fraction]Ordered By: Damien Rashid on 01-14-2023 Hematocrit (Bld) [Volume fraction] 42.9 % 34.0-46.4 [facility] Hemoglobin [Mass/volume] in BloodOrdered By: Damien Rashid on 01-14-2023 Hemoglobin (Bld) [Mass/Vol] 14.0 g/dL 11.8-15.4 [facility] Laboratory - Chemistry and C hemistry - challengeOrdered By: Damien Rashid on 01-14-2023 GFR/1.73 sq M.predicted MDRD (S/P/Bld) [Vol rate/Area] mL/min/{1.73_m2} [facility] Laboratory - CoagulationOrde red By: Damien Rashid on 01-14-2023 PT Coag (PPP) [Time] 12.2 s 9.0-12.9 [facility] Leukocytes [#/volume] correc taurus for nucleated erythrocytes in Blood by Automated counOrdered By: Damien Rashid on 01-14-2023 WBC corrected for nucl RBC Auto (Bld) [#/Vol] 11.7 10*3/uL 3.8-11.6 [facility] Lymphocytes Auto (Bld) [#/Vo l]Ordered By: Damien Rashid on 01-14-2023 Lymphocytes (Bld) [#/Vol] 2.9 10*3/uL 1.00-4.8 [facility] Lymphocytes/100 WBC Auto (Bl d)Ordered By: Damien Rashid on 01-14-2023 Lymphocytes/100 WBC (Bld) 24.4 % . [facility] MCH Auto (RBC) [Entitic mass ]Ordered By: Damien Rashid on 01-14-2023 MCH (RBC) [Entitic mass] 25.7 pg 24.7-34.3 [facility] MCHC Auto (RBC) [Mass/Vol]Or dered By: Damien Rashid on 01-14-2023 MCHC (RBC) [Mass/Vol] 32.7 g/dL 32.0-35.[address] [facility] MCV Auto (RBC) [Entitic vol] Ordered By: Damien Rashid on 01-14-2023 MCV (RBC) [Entitic vol] 78.7 fL 80-100 [facility] Monocyte distribution width [Entitic volume] in Blood by AutomatedOrdered By: Damien Rashid on 01-14-2023 Monocyte distribution width Auto (Bld) [Entitic vol] 21.82 % 0.00-20.00 [facility] Comment on above: For adults in ED, MD W > 20.0 may be associated with a higher risk of sepsis during the first 12 hrs of hospital admission Monocytes Auto (Bld) [#/Vol] Ordered By: Damien Rashid on 01-14-2023 Monocytes (Bld) [#/Vol] 0.8 10*3/uL 0.0-0.8 [facility] Monocytes/100 WBC Auto (Bld) Ordered By: aDmien Rashid on 01-14-2023 Monocytes/100 WBC (Bld) 6.8 % . [facility] Natriuretic peptide B [Mass/ Vol]Ordered By: Damien Rashid on 01-14-2023 Natriuretic peptide B (Bld) [Mass/Vol] 6.0 pg/mL 5-100 [facility] Neutrophils Auto (Bld) [#/Vo l]Ordered By: Damien Rashid on 01-14-2023 Neutrophils (Bld) [#/Vol] 7.9 10*3/uL 1.8-7.7 [facility] Neutrophils/100 WBC Auto (Bl d)Ordered By: Damien Rashid on 01-14-2023 Neutrophils/100 WBC (Bld) 67.0 % . [facility] No Panel InformationOrdered By: Damien Rashid on 01-14-2023 Pharmacy Creatinine Clearance (Chem 158.87 [facility] Nucleated erythrocytes [Pres ence] in Blood by Automated countOrdered By: Damien Rashid on 01-14-2023 Nucleated RBC Auto Ql (Bld) 0.2 /100{WBC} 0-0.5 [facility] Platelet mean volume Auto (B ld) [Entitic vol]Ordered By: Damien Rashid on 01-14-2023 Platelet mean volume (Bld) [Entitic vol] 9.8 fL 6.3-10.7 [facility] Platelet poor plasma interna tional normalized ratio (INR) by coagulation assay (relatOrdered By: Damien Rashid on 01-14-2023 INR Coag (PPP) [Relative time] 1.0 {INR} [facility] Comment on above: INR Therapeutic Rang e [...] 01-14-2023 Platelets (Bld) [#/Vol] 254 10*3/uL 150-450 [facility] RBC Auto (Bld) [#/Vol]Ordere d By: Damien Rashid on 01-14-2023 RBC (Bld) [#/Vol] 5.44 10*6/uL 3.60-5.00 [facility] Serum or plasma anion gap de terminationOrdered By: Damien Rashid on 01-14-2023 Anion gap [Moles/Vol] N/A [facility] Sodium [Moles/volume] in Ser um or PlasmaOrdered By: Damien Rashid on 01-14-2023 Sodium [Moles/Vol] 138 mmol/L 136-145 [facility] Urea nitrogen [Mass/volume] in Serum or PlasmaOrdered By: Damien Rashid on 01-14-2023 Urea nitrogen [Mass/Vol] 16 mg/dL 7-25 [facility] WBC Auto (Bld) [#/Vol]Ordere d By: Damien Rashid on 01-14-2023 WBC (Bld) [#/Vol] 11.7 10*3/uL 3.8-11.6 [facility] Basophils Auto (Bld) [#/Vol] Ordered By: Larissa Resendiz on 01-11-2023 Basophils (Bld) [#/Vol] 0.1 10*3/uL 0.0-0.2 [facility] Basophils/100 WBC Auto (Bld) Ordered By: Larissa Resendiz on 01-11-2023 Basophils/100 WBC (Bld) 0.5 % . [facility] Eosinophils Auto (Bld) [#/Vo l]Ordered By: Larissa Resendiz on 01-11-2023 Eosinophils (Bld) [#/Vol] 0.1 10*3/uL 0.0-0.45 [facility] Eosinophils/100 WBC Auto (Bl d)Ordered By: Larissa Resendiz on 01-11-2023 Eosinophils/100 WBC (Bld) 1.0 % . [facility] Erythrocyte distribution wid th Auto (RBC) [Ratio]Ordered By: Larissa Resendiz on 01-11-2023 Erythrocyte distribution width (RBC) [Ratio] 19.5 % 11.9-15.3 [facility] Hematocrit Auto (Bld) [Volum e fraction]Ordered By: Larissa Resendiz on 01-11-2023 Hematocrit (Bld) [Volume fraction] 41.4 % 34.0-46.4 [facility] Hemoglobin [Mass/volume] in BloodOrdered By: Larissa Resendiz on 01-11-2023 Hemoglobin (Bld) [Mass/Vol] 13.3 g/dL 11.8-15.4 [facility] Leukocytes [#/volume] correc taurus for nucleated erythrocytes in Blood by Automated counOrdered By: Larissa Resendiz on 01-11-2023 WBC corrected for nucl RBC Auto (Bld) [#/Vol] 12.9 10*3/uL 3.8-11.6 [facility] Lymphocytes Auto (Bld) [#/Vo l]Ordered By: Larissa Resendiz on 01-11-2023 Lymphocytes (Bld) [#/Vol] 2.9 10*3/uL 1.00-4.8 [facility] Lymphocytes/100 WBC Auto (Bl d)Ordered By: Larissa Resendiz on 01-11-2023 Lymphocytes/100 WBC (Bld) 22.7 % . [facility] MCH Auto (RBC) [Entitic mass ]Ordered By: Larissa Resendiz on 01-11-2023 MCH (RBC) [Entitic mass] 25.4 pg 24.7-34.3 [facility] MCHC Auto (RBC) [Mass/Vol]Or dered By: Larissa Resendiz on 01-11-2023 MCHC (RBC) [Mass/Vol] 32.3 g/dL 32.0-35.[address] [facility] MCV Auto (RBC) [Entitic vol] Ordered By: Larissa Resendiz on 01-11-2023 MCV (RBC) [Entitic vol] 78.8 fL 80-100 [facility] Monocytes Auto (Bld) [#/Vol] Ordered By: Larissa Resendiz on 01-11-2023 Monocytes (Bld) [#/Vol] 0.5 10*3/uL 0.0-0.8 [facility] Monocytes/100 WBC Auto (Bld) Ordered By: Larissa Resendiz on 01-11-2023 Monocytes/100 WBC (Bld) 4.1 % . [facility] Neutrophils Auto (Bld) [#/Vo l]Ordered By: Larissa Resendiz on 01-11-2023 Neutrophils (Bld) [#/Vol] 9.2 10*3/uL 1.8-7.7 [facility] Neutrophils/100 WBC Auto (Bl d)Ordered By: Larissa Resendiz on 01-11-2023 Neutrophils/100 WBC (Bld) 71.7 % . [facility] Nucleated erythrocytes [Pres ence] in Blood by Automated countOrdered By: Larissa Resendiz on 01-11-2023 Nucleated RBC Auto Ql (Bld) 0.1 /100{WBC} 0-0.5 [facility] Platelet mean volume Auto (B ld) [Entitic vol]Ordered By: Larissa Resendiz on 01-11-2023 Platelet mean volume (Bld) [Entitic vol] 10.6 fL 6.3-10.7 [facility] Platelets Auto (Bld) [#/Vol] Ordered By: Larissa Resendiz on 01-11-2023 Platelets (Bld) [#/Vol] 250 10*3/uL 150-450 [facility] RBC Auto (Bld) [#/Vol]Ordere d By: Larissa Resendiz on 01-11-2023 RBC (Bld) [#/Vol] 5.25 10*6/uL 3.60-5.00 [facility] WBC Auto (Bld) [#/Vol]Ordere d By: Larissa Resendiz on 01-11-2023 WBC (Bld) [#/Vol] 12.9 10*3/uL 3.8-11.6 [facility] Alanine aminotransferase [En zymatic activity/volume] in Serum or PlasmaOrdered By: Jah Almonte on 01-10-2023 ALT [Catalytic activity/Vol] 16 U/L [facility] Alanine aminotransferase [En zymatic activity/volume] in Serum or PlasmaOrdered By: Larissa Resendiz on 01-10-2023 ALT [Catalytic activity/Vol] 15 U/L [facility] Albumin [Mass/volume] in Ser um or Plasma by Bromocresol green (BCG) dye binding methoOrdered By: Jah Almonte on 01-10-2023 Albumin BCG dye [Mass/Vol] 4.2 g/dL 3.5-5.7 [facility] Albumin [Mass/volume] in Ser um or Plasma by Bromocresol green (BCG) dye binding methoOrdered By: Larissa Resendiz on 01-10-2023 Albumin BCG dye [Mass/Vol] 4.1 g/dL 3.5-5.7 [facility] Alkaline phosphatase [Enzyma tic activity/volume] in Serum or PlasmaOrdered By: Jah Almonte on 01-10-2023 ALP [Catalytic activity/Vol] 94 U/L 34-104 [facility] Alkaline phosphatase [Enzyma tic activity/volume] in Serum or PlasmaOrdered By: Larissa Resendiz on 01-10-2023 ALP [Catalytic activity/Vol] 92 U/L 34-104 [facility] Aspartate aminotransferase [ Enzymatic activity/volume] in Serum or PlasmaOrdered By: Jah Almonte on 01-10-2023 AST [Catalytic activity/Vol] 14 U/L 1339 [facility] Aspartate aminotransferase [ Enzymatic activity/volume] in Serum or PlasmaOrdered By: Larissa Resendiz on 01-10-2023 AST [Catalytic activity/Vol] 15 U/L 39 [facility] Basophils Auto (Bld) [#/Vol] Ordered By: Jah Almonte on 01-10-2023 Basophils (Bld) [#/Vol] 0.1 10*3/uL 0.0-0.2 [facility] Basophils/100 WBC Auto (Bld) Ordered By: Jah Almonte on 01-10-2023 Basophils/100 WBC (Bld) 0.8 % . [facility] Bilirubin Test strip Ql (U)O rdered By: Jah Almonte on 01-10-2023 Bilirubin Ql (U) Negative Negative [facility] Bilirubin.total [Mass/volume ] in Serum or PlasmaOrdered By: Jah Almonte on 01-10-2023 Bilirubin [Mass/Vol] 0.3 mg/dL 0.3-1.0 [facility] Bilirubin.total [Mass/volume ] in Serum or PlasmaOrdered By: Larissa Resendiz on 01-10-2023 Bilirubin [Mass/Vol] 0.2 mg/dL 0.3-1.0 [facility] [facility] Calcium [Mass/volume] in Ser um or PlasmaOrdered By: Jah Almonte on 01-10-2023 Calcium [Mass/Vol] 9.0 mg/dL 8.6-10.3 [facility] Calcium [Mass/volume] in Ser um or PlasmaOrdered By: Larissa Resendiz on 01-10-2023 Calcium [Mass/Vol] 8.9 mg/dL 8.6-10.3 [facility] Carbon dioxide, total [Moles /volume] in Serum or PlasmaOrdered By: Jah Almonte on 01-10-2023 CO2 [Moles/Vol] 25.8 mmol/L 21.0-31.0 [facility] Carbon dioxide, total [Moles /volume] in Serum or PlasmaOrdered By: Larissa Resendiz on 01-10-2023 CO2 [Moles/Vol] 22.9 mmol/L 21.0-31.0 [facility] Chloride [Moles/volume] in S gale or PlasmaOrdered By: Jah Almonte on 01-10-2023 Chloride [Moles/Vol] 105 mmol/L 98-107 [facility] Chloride [Moles/volume] in S gale or PlasmaOrdered By: Larissa Resendiz on 01-10-2023 Chloride [Moles/Vol] 104 mmol/L 98-107 [facility] Cholesterol [Mass/volume] in Serum or PlasmaOrdered By: Larissa Resendiz on 01-10-2023 Cholesterol [Mass/Vol] 213 mg/dL 140-200 [facility] Comment on above: Chol less than 200 m g/dl low riskChol 201-239 mg/dl borderline riskChol 240 mg/dl and greater high risk Cholesterol in LDL Calc [Mas s/Vol]Ordered By: Larissa Resendiz on 01-10-2023 Cholesterol in LDL [Mass/Vol] 141 mg/dL 0-100 [facility] Comment on above: LDL ATP III CLASSIFI CATIONLDL less than 100 mg/dL OptimalLDL 100-129 mg/dL Near or above optimalLDL 130-159 mg/dL Borderline highLDL 160-189 mg/dL HighLDL greater than 189 mg/dL Very high Cholesterol in VLDL Calc [Ma ss/Vol]Ordered By: Larissa Resendiz on 01-10-2023 Cholesterol in VLDL [Mass/Vol] 23 mg/dL [facility] Color Auto (U)Ordered By: Cali Almonte on 01-10-2023 Color (U) Yellow Yellow [facility] Creatinine [Mass/volume] in Serum or PlasmaOrdered By: Jah Almonte on 01-10-2023 Creatinine [Mass/Vol] 0.67 mg/dL 0.60-1.20 [facility] Creatinine [Mass/volume] in Serum or PlasmaOrdered By: Larissa Resendiz on 01-10-2023 Creatinine [Mass/Vol] 0.66 mg/dL 0.60-1.[address] [facility] Eosinophils Auto (Bld) [#/Vo l]Ordered By: Jah Almonte on 01-10-2023 Eosinophils (Bld) [#/Vol] 0.1 10*3/uL 0.0-0.45 [facility] Eosinophils/100 WBC Auto (Bl d)Ordered By: Jah Almonte on 01-10-2023 Eosinophils/100 WBC (Bld) 0.8 % . [facility] Erythrocyte distribution wid th Auto (RBC) [Ratio]Ordered By: Jah Almonte on 01-10-2023 Erythrocyte distribution width (RBC) [Ratio] 19.3 % 11.9-15.3 [facility] Globulin Calc (S) [Mass/Vol] Ordered By: Jah Almonte on 01-10-2023 Globulin (S) [Mass/Vol] 2.7 g/dL [facility] Globulin Calc (S) [Mass/Vol] Ordered By: Larissa Resendiz on 01-10-2023 Globulin (S) [Mass/Vol] 2.8 g/dL [facility] Glucose Glucometer (BldC) [M ass/Vol]Ordered By: Jah Almonte on 01-10-2023 Glucose [Mass/Vol] 142 mg/dL [facility] Comment on above: Random Glucose Refer ence Range is dependent on time and content of last meal. Glucose of more than 200 mg/dL in a nonstressed, ambulatory subject supports the diagnosis of Diabetes Mellitus. Glucose [Mass/volume] in Ser um or PlasmaOrdered By: Jah Almonte on 01-10-2023 Glucose [Mass/Vol] 140 mg/dL 74-109 [facility] Comment on above: ADA recommended refe rence rangeRandom Glucose Reference Range is dependent on time and content of last meal. Glucose of more than 200 mg/dL in a nonstressed, ambulatory subject supports the diagnosis of Diabetes Mellitus. Glucose [Mass/volume] in Ser um or PlasmaOrdered By: Larissa Resendiz on 01-10-2023 Glucose [Mass/Vol] 138 mg/dL 74-109 [facility] Comment on above: ADA recommended refe rence rangeRandom Glucose Reference Range is dependent on time and content of last meal. Glucose of more than 200 mg/dL in a nonstressed, ambulatory subject supports the diagnosis of Diabetes Mellitus. HCG ( test) IA.rapi d Ql (U)Ordered By: Jah Almonte on 01-10-2023 HCG ( test) Ql (U) Negative [facility] Hematocrit Auto (Bld) [Volum e fraction]Ordered By: Jah Almonte on 01-10-2023 Hematocrit (Bld) [Volume fraction] 40.9 % 34.0-46.4 [facility] Hemoglobin [Mass/volume] in BloodOrdered By: Jah Almonte on 01-10-2023 Hemoglobin (Bld) [Mass/Vol] 13.5 g/dL 11.8-15.4 [facility] Ketones Auto test strip (U) [Mass/Vol]Ordered By: Jah Almonte on 01-10-2023 Ketones (U) [Mass/Vol] Negative Negative [facility] - Chemistry and C hemistry - challengeOrdered By: Jah Almonte on 01-10-2023 GFR/1.73 sq M.predicted MDRD (S/P/Bld) [Vol rate/Area] mL/min/{1.73_m2} [facility] Leukocytes [#/volume] correc taurus for nucleated erythrocytes in Blood by Automated counOrdered By: Jah Almonte on 01-10-2023 WBC corrected for nucl RBC Auto (Bld) [#/Vol] 13.3 10*3/uL 3.8-11.6 [facility] Lymphocytes Auto (Bld) [#/Vo l]Ordered By: Jah Almonte on 01-10-2023 Lymphocytes (Bld) [#/Vol] 2.9 10*3/uL 1.00-4.8 [facility] Lymphocytes/100 WBC Auto (Bl d)Ordered By: Jah Almonte on 01-10-2023 Lymphocytes/100 WBC (Bld) 21.5 % . [facility] MCH Auto (RBC) [Entitic mass ]Ordered By: Jah Almonte on 01-10-2023 MCH (RBC) [Entitic mass] 25.8 pg 24.7-34.3 [facility] MCHC Auto (RBC) [Mass/Vol]Or dered By: Jah Almonte on 01-10-2023 MCHC (RBC) [Mass/Vol] 33.1 g/dL 32.0-35.[address] [facility] MCV Auto (RBC) [Entitic vol] Ordered By: Jah Almonte on 01-10-2023 MCV (RBC) [Entitic vol] 77.9 fL 80-100 [facility] Magnesium [Mass/volume] in S gale or PlasmaOrdered By: Jah Almonte on 01-10-2023 Magnesium [Mass/Vol] 2.2 mg/dL 1.9-2.7 [facility] Monocyte distribution width [Entitic volume] in Blood by AutomatedOrdered By: Jah Almonte on 01-10-2023 Monocyte distribution width Auto (Bld) [Entitic vol] 20.66 % 0.00-20.00 [facility] Comment on above: For adults in ED, MD W > 20.0 may be associated with a higher risk of sepsis during the first 12 hrs of hospital admission Monocytes Auto (Bld) [#/Vol] Ordered By: Jah Almonte on 01-10-2023 Monocytes (Bld) [#/Vol] 0.6 10*3/uL 0.0-0.8 [facility] Monocytes/100 WBC Auto (Bld) Ordered By: Jah Almonte on 01-10-2023 Monocytes/100 WBC (Bld) 4.2 % . [facility] Neutrophils Auto (Bld) [#/Vo l]Ordered By: Jah Almonte on 01-10-2023 Neutrophils (Bld) [#/Vol] 9.7 10*3/uL 1.8-7.7 [facility] Neutrophils/100 WBC Auto (Bl d)Ordered By: Jah Almonte on 01-10-2023 Neutrophils/100 WBC (Bld) 72.7 % . [facility] Nitrite Test strip Ql (U)Ord ered By: Jah Almonte on 01-10-2023 Nitrite Ql (U) Negative Negative [facility] No Panel InformationOrdered By: Jah Almonte on 01-10-2023 Bedside Glucose #2 Comment Cleaned meter [facility] Bedside Glucose Comment See comment [facility] Comment on above: Glu2: WILL NOTIFY DR /RN Pharmacy Creatinine Clearance (Chem 146.37 [facility] No Panel InformationOrdered By: Larissa Resendiz on 01-10-2023 Pharmacy Creatinine Clearance (Chem N/A [facility] Nucleated erythrocytes [Pres ence] in Blood by Automated countOrdered By: Jah Almonte on 01-10-2023 Nucleated RBC Auto Ql (Bld) 0.0 /100{WBC} 0-0.5 [facility] Platelet mean volume Auto (B ld) [Entitic vol]Ordered By: Jah Almonte on 01-10-2023 Platelet mean volume (Bld) [Entitic vol] 9.4 fL 6.3-10.7 [facility] Platelets Auto (Bld) [#/Vol] Ordered By: Jah Almonte on 01-10-2023 Platelets (Bld) [#/Vol] 241 10*3/uL 150-450 [facility] Potassium [Moles/volume] in Serum or PlasmaOrdered By: Jah Almonte on 01-10-2023 Potassium [Moles/Vol] 3.5 mmol/L 3.5-5.[address] [facility] Protein Auto test strip (U) [Mass/Vol]Ordered By: Jah Almonte on 01-10-2023 Protein (U) [Mass/Vol] Negative Negative [facility] Protein [Mass/volume] in Ser um or PlasmaOrdered By: Jah Almonte on 01-10-2023 Protein [Mass/Vol] 6.9 g/dL 6.4-8.9 [facility] RBC Auto (Bld) [#/Vol]Ordere d By: Jah Almonte on 01-10-2023 RBC (Bld) [#/Vol] 5.25 10*6/uL 3.60-5.00 [facility] Serum or plasma albumin/glob ulin mass ratioOrdered By: Jah Almonte on 01-10-2023 Albumin/Globulin [Mass ratio] 1.6 {ratio} [facility] Serum or plasma albumin/glob ulin mass ratioOrdered By: Larissa Resendiz on 01-10-2023 Albumin/Globulin [Mass ratio] 1.5 {ratio} [facility] Serum or plasma anion gap de terminationOrdered By: Jah Almonte on 01-10-2023 Anion gap [Moles/Vol] 11.7 mmol/L 6.0-15.0 [facility] Serum or plasma anion gap de terminationOrdered By: Larissa Resendiz on 01-10-2023 Anion gap [Moles/Vol] 15.6 mmol/L 6.0-15.0 [facility] Serum or plasma high density lipoprotein (HDL) cholesterol measurementOrdered By: Larissa Resendiz on 01-10-2023 Cholesterol in HDL [Mass/Vol] 48 mg/dL 35-85 [facility] Comment on above: HDL CHOL ATP-III CLA SSIFICATION Cardiovascular RiskHDL > or equal to 60 mg/dL LOWHDL < 40 mg/dL HIGH Serum or plasma total choles terol/high density lipoprotein (HDL) cholesterol mass ratOrdered By: Larissa Resendiz on 01-10-2023 Cholesterol.total/Chol esterol in HDL [Mass ratio] 4.4 {ratio} <5.0 [facility] Sodium [Moles/volume] in Ser um or PlasmaOrdered By: Jah Almonte on 01-10-2023 Sodium [Moles/Vol] 139 mmol/L 136-145 [facility] Specific gravity Auto test s trip (U) [Rel density]Ordered By: Jah Almonte on 01-10-2023 Specific gravity (U) [Rel density] 1.015 1.001-1.03 0 [facility] Thyrotropin [Units/volume] i n Serum or PlasmaOrdered By: Larissa Resendiz on 01-10-2023 TSH Qn 1.60 m[IU]/L 0.45-5.33 [facility] Triglyceride [Mass/volume] i n Serum or PlasmaOrdered By: Larissa Resendiz on 01-10-2023 Triglyceride [Mass/Vol] 119 mg/dL 0-149 [facility] Comment on above: TRIG ATP III CLASSIF [...] <= 0.01 ng/mL [Mass/Vol] 3.6 pg/mL 0.0-15.0 [facility] Urea nitrogen [Mass/volume] in Serum or PlasmaOrdered By: Jah Almonte on 01-10-2023 Urea nitrogen [Mass/Vol] 20 mg/dL 7-25 [facility] Urine clarity by refractomet ry automatedOrdered By: Jah Almonte on 01-10-2023 Clarity Refractometry automated (U) Clear Clear [facility] Urine glucose measurement by automated test strip (mass/volume)Ordered By: Jah Almonte on 01-10-2023 Glucose Auto test strip (U) [Mass/Vol] Normal mg/dL Normal [facility] Urine hemoglobin detection b y automated test stripOrdered By: Jah Almonte on 01-10-2023 Hemoglobin Auto test strip Ql (U) Negative Negative [facility] Urine leukocyte esterase det ection by automated test stripOrdered By: Jha Almonte on 01-10-2023 Leukocyte esterase Auto test strip Ql (U) Negative Negative [facility] Urobilinogen Auto test strip (U) [Mass/Vol]Ordered By: Jah Almonte on 01-10-2023 Urobilinogen (U) [Mass/Vol] Normal mg/dL Normal [facility] Vitamin B12 ser/plasOrdered By: Larissa Resendiz on 01-10-2023 Cobalamin (Vitamin B12) [Mass/Vol] 457 pg/mL 180-914 [facility] WBC Auto (Bld) [#/Vol]Ordere d By: Jah Almonte on 01-10-2023 WBC (Bld) [#/Vol] 13.3 10*3/uL 3.8-11.6 [facility] pH Auto test strip (U)Ordere d By: Jah Almonte on 01-10-2023 pH (U) 5.5 [pH] 5.0-9.0 [facility] Albumin [Mass/volume] in Bod y fluidOrdered By: Keith Oseguera on 12-27-2022 Albumin (Body fld) [Mass/Vol] 3.6 g/dL 3.2-5.5 [facility] Alkaline phosphatase [Enzyma tic activity/volume] in Serum or PlasmaOrdered By: Keith Oseguera on 12-27-2022 ALP [Catalytic activity/Vol] 95 U/L 32-92 [facility] Aspartate aminotransferase [ Enzymatic activity/volume] in Serum or PlasmaOrdered By: Keith Oseguera on 12-27-2022 AST [Catalytic activity/Vol] 17 U/L 10-42 [facility] Basophils Auto (Bld) [#/Vol] Ordered By: Keith Oseguera on 12-27-2022 Basophils (Bld) [#/Vol] 0.1 10*3/uL 0.0-0.2 [facility] Basophils/100 WBC Auto (Bld) Ordered By: Keith Oseguera on 12-27-2022 Basophils/100 WBC (Bld) 0.8 % . [facility] Bilirubin Test strip Ql (U)O rdered By: Keith Oseguera on 12-27-2022 Bilirubin Ql (U) Negative Negative [facility] Bilirubin.total [Mass/volume ] in Serum or PlasmaOrdered By: Keith Oseguera on 12-27-2022 Bilirubin [Mass/Vol] 0.2 mg/dL 0.3-1.2 [facility] COVID CepheidOrdered By: Dusty Oseguera on 12-27-2022 SARS-CoV-2 (COVID-19) Ab IA Ql Negative Negative [facility] Comment on above: This is a duplicate [employer] Xpress CoV-2/Flu/RSV Plus RNA by RT-PCR result to be used for statistical tracking purpose only. SARS-CoV-2 (COVID-19) RNA JUDIT+probe Ql (Unsp spec) [facility] SARS-CoV-2 (COVID-19) RNA JUDIT+probe Ql (Unsp spec) [facility] Calcium [Mass/volume] in Ser um or PlasmaOrdered By: Keith Oseguera on 12-27-2022 Calcium [Mass/Vol] 8.9 mg/dL 8.2-10.2 [facility] Carbon dioxide, total [Moles /volume] in Serum or PlasmaOrdered By: Keith Oseguera on 12-27-2022 CO2 [Moles/Vol] 25.8 mmol/L 22.0-30.0 [facility] Chloride [Moles/volume] in S gale or PlasmaOrdered By: Keith Oseguera on 12-27-2022 Chloride [Moles/Vol] 103 mmol/L 95-114 [facility] Color Auto (U)Ordered By: Hudson evangelist Parish on 12-27-2022 Color (U) Yellow Yellow [facility] Creatinine and Glomerular fi ltration rate.predicted panel (S/P/Bld)Ordered By: Keith Oseguera on 12-27-2022 Creatinine [Mass/Vol] 0.69 mg/dL 0.44-1.[address] [facility] Eosinophils Auto (Bld) [#/Vo l]Ordered By: Keith Oseguera on 12-27-2022 Eosinophils (Bld) [#/Vol] 0.1 10*3/uL 0.0-0.45 [facility] Eosinophils/100 WBC Auto (Bl d)Ordered By: Keith Oseguera on 12-27-2022 Eosinophils/100 WBC (Bld) 0.9 % . [facility] Erythrocyte distribution wid th Auto (RBC) [Ratio]Ordered By: Keith Oseguera on 12-27-2022 Erythrocyte distribution width (RBC) [Ratio] 20.8 % 11.9-15.3 [facility] Estimated glomerular filtrat ion rate (GFR) non- AmericanOrdered By: Keith Oseguera on 12-27-2022 GFR/1.73 sq M.predicted among non-blacks MDRD (S/P/Bld) [Vol rate/Area] > 60 mL/Min [facility] Globulin Calc (S) [Mass/Vol] Ordered By: Keith Oseguera on 12-27-2022 Globulin (S) [Mass/Vol] 2.8 g/dL [facility] Glucose [Mass/volume] in Ser um or PlasmaOrdered By: Keith Oseguera on 12-27-2022 Glucose [Mass/Vol] 116 mg/dL 70-100 [facility] Comment on above: ADA recommended refe rence rangeRandom Glucose Reference Range is dependent on time and content of last meal. Glucose of more than 200 mg/dL in a nonstressed, ambulatory subject supports the diagnosis of Diabetes Mellitus. Hematocrit Auto (Bld) [Volum e fraction]Ordered By: Keith Oseguera on 12-27-2022 Hematocrit (Bld) [Volume fraction] 40.6 % 34.0-46.4 [facility] Hemoglobin [Mass/volume] in BloodOrdered By: Keith Oseguera on 12-27-2022 Hemoglobin (Bld) [Mass/Vol] 13.1 g/dL 11.8-15.4 [facility] Ketones Auto test strip (U) [Mass/Vol]Ordered By: Keith Oseguera on 12-27-2022 Ketones (U) [Mass/Vol] Negative Negative [facility] - Chemistry and C hemistry - challengeOrdered By: Keith Oseguera on 12-27-2022 Lipase [Catalytic activity/Vol] 27.0 U/L 22-51 [facility] Leukocytes [#/volume] correc taurus for nucleated erythrocytes in Blood by Automated counOrdered By: Keith Oseguera on 12-27-2022 WBC corrected for nucl RBC Auto (Bld) [#/Vol] 13.7 10*3/uL 3.8-11.6 [facility] Lymphocytes Auto (Bld) [#/Vo l]Ordered By: Keith Oseguera on 12-27-2022 Lymphocytes (Bld) [#/Vol] 3.0 10*3/uL 1.00-4.8 [facility] Lymphocytes/100 WBC Auto (Bl d)Ordered By: Keith Oseguera on 12-27-2022 Lymphocytes/100 WBC (Bld) 22.2 % . [facility] MCH Auto (RBC) [Entitic mass ]Ordered By: Keith Oseguera on 12-27-2022 MCH (RBC) [Entitic mass] 24.8 pg 24.7-34.3 [facility] MCHC Auto (RBC) [Mass/Vol]Or dered By: Keith Oseguera on 12-27-2022 MCHC (RBC) [Mass/Vol] 32.2 g/dL 32.0-35.[address] [facility] MCV Auto (RBC) [Entitic vol] Ordered By: Keith Oseguera on 12-27-2022 MCV (RBC) [Entitic vol] 77.1 fL 80-100 [facility] Monocyte distribution width [Entitic volume] in Blood by AutomatedOrdered By: Keith Oseguera on 12-27-2022 Monocyte distribution width Auto (Bld) [Entitic vol] 17.58 % 0.00-20.00 [facility] Monocytes Auto (Bld) [#/Vol] Ordered By: Keith Oseguera on 12-27-2022 Monocytes (Bld) [#/Vol] 0.6 10*3/uL 0.0-0.8 [facility] Monocytes/100 WBC Auto (Bld) Ordered By: Keith Oseguera on 12-27-2022 Monocytes/100 WBC (Bld) 4.6 % . [facility] Neutrophils Auto (Bld) [#/Vo l]Ordered By: Keith Oseguera on 12-27-2022 Neutrophils (Bld) [#/Vol] 9.8 10*3/uL 1.8-7.7 [facility] Neutrophils/100 WBC Auto (Bl d)Ordered By: Keith Oseguera on 12-27-2022 Neutrophils/100 WBC (Bld) 71.5 % . [facility] Nitrite Test strip Ql (U)Ord ered By: Keith Oseguera on 12-27-2022 Nitrite Ql (U) Negative Negative [facility] No Panel InformationOrdered By: Keith Oseguera on 12-27-2022 D-Dimer Quantitative (PE/DVT) 385 ng/mL 0-243 [facility] Comment on above: The reference range for [...] conditions. Estimated GFR () > 60 mL/Min [facility] Comment on above: GFR estimated refere nce range: According to KDOQI guidelines, <60 ml/min/1.73m2 is sufficient to diagnose a patient with chronic kidney disease. Pharmacy Creatinine Clearance (Chem 135.15 [facility] Nucleated erythrocytes [Pres ence] in Blood by Automated countOrdered By: Keith Oseguera on 12-27-2022 Nucleated RBC Auto Ql (Bld) 0.1 /100{WBC} 0-0.5 [facility] Platelet mean volume Auto (B ld) [Entitic vol]Ordered By: Keith Oseguera on 12-27-2022 Platelet mean volume (Bld) [Entitic vol] 9.2 fL 6.3-10.7 [facility] Platelets Auto (Bld) [#/Vol] Ordered By: Keith Oseguera on 12-27-2022 Platelets (Bld) [#/Vol] 267 10*3/uL 150-450 [facility] Potassium [Moles/volume] in Serum or PlasmaOrdered By: Keith Oseguera on 12-27-2022 Potassium [Moles/Vol] 3.6 mmol/L 3.5-5.[address] [facility] Protein Auto test strip (U) [Mass/Vol]Ordered By: Keith Oseguera on 12-27-2022 Protein (U) [Mass/Vol] Negative Negative [facility] Protein [Mass/volume] in Ser um or PlasmaOrdered By: Keith Oseguera on 12-27-2022 Protein [Mass/Vol] 6.4 g/dL 6.1-7.9 [facility] RBC Auto (Bld) [#/Vol]Ordere d By: Keith Oseguera on 12-27-2022 RBC (Bld) [#/Vol] 5.27 10*6/uL 3.60-5.00 [facility] Serum or plasma alanine matias otransferase measurement without P-5'-P (enzymatic activiOrdered By: Keith Oseguera on 12-27-2022 ALT No additional P-5'-P [Catalytic activity/Vol] 16 U/L 10-60 [facility] Serum or plasma albumin/glob ulin mass ratioOrdered By: Keith Oseguera on 12-27-2022 Albumin/Globulin [Mass ratio] 1.3 {ratio} [facility] Serum or plasma anion gap de terminationOrdered By: Keith Oseguera on 12-27-2022 Anion gap [Moles/Vol] 12.8 mmol/L 6.0-15.0 [facility] Sodium [Moles/volume] in Ser um or PlasmaOrdered By: Keith Oseguera on 12-27-2022 Sodium [Moles/Vol] 138 mmol/L 136-146 [facility] Specific gravity Auto test s trip (U) [Rel density]Ordered By: Keith Oseguera on 12-27-2022 Specific gravity (U) [Rel density] 1.026 1.001-1.03 0 [facility] Troponin I.cardiac [Mass/vol ume] in Serum or Plasma by High sensitivity methodOrdered By: Keith Oseguera on 12-27-2022 Troponin I.cardiac High sensitivity method [Mass/Vol] 4 pg/mL 0-15 [facility] Urea nitrogen [Mass/volume] in Serum or PlasmaOrdered By: Keith Oseguera on 12-27-2022 Urea nitrogen [Mass/Vol] 11 mg/dL 9-23 [facility] Urine clarity by refractomet ry automatedOrdered By: Keith Oseguera on 12-27-2022 Clarity Refractometry automated (U) Clear Clear [facility] Urine glucose measurement by automated test strip (mass/volume)Ordered By: Keith Oseguera on 12-27-2022 Glucose Auto test strip (U) [Mass/Vol] Normal mg/dL Normal [facility] Urine hemoglobin detection b y automated test stripOrdered By: Keith Oseguera on 12-27-2022 Hemoglobin Auto test strip Ql (U) Negative Negative [facility] Urine leukocyte esterase det ection by automated test stripOrdered By: Keith Oseguera on 12-27-2022 Leukocyte esterase Auto test strip Ql (U) Negative Negative [facility] Urobilinogen Auto test strip (U) [Mass/Vol]Ordered By: Keith Oseguera on 12-27-2022 Urobilinogen (U) [Mass/Vol] Normal mg/dL Normal [facility] WBC Auto (Bld) [#/Vol]Ordere d By: Keith Oseguera on 12-27-2022 WBC (Bld) [#/Vol] 13.7 10*3/uL 3.8-11.6 [facility] pH Auto test strip (U)Ordere d By: Keith Oseguera on 12-27-2022 pH (U) 5.5 [pH] 5.0-9.0 [facility] Basophils Auto (Bld) [#/Vol] Ordered By: Nasir Garcia on 12-05-2022 Basophils (Bld) [#/Vol] 0.2 10*3/uL 0.0-0.2 [facility] Basophils/100 WBC Auto (Bld) Ordered By: Nasir Garcia on 12-05-2022 Basophils/100 WBC (Bld) 1.1 % . [facility] Bilirubin Auto test strip Ql (U)Ordered By: Nasir Garcia on 12-05-2022 Bilirubin Ql (U) Negative Negative [facility] Body fluid albumin measureme nt (mass/volume)Ordered By: Nasir Garcia on 12-05-2022 Albumin (Body fld) [Mass/Vol] 3.7 g/dL 3.2-5.5 [facility] Creatinine and Glomerular fi ltration rate.predicted panel (S/P/Bld)Ordered By: Nasir Garcia on 12-05-2022 Creatinine [Mass/Vol] 0.70 mg/dL 0.44-1.[address] [facility] Eosinophils Auto (Bld) [#/Vo l]Ordered By: Nasir Garcia on 12-05-2022 Eosinophils (Bld) [#/Vol] 0.2 10*3/uL 0.0-0.45 [facility] Eosinophils/100 WBC Auto (Bl d)Ordered By: Nasir Garcia on 12-05-2022 Eosinophils/100 WBC (Bld) 1.2 % . [facility] Erythrocyte distribution wid th Auto (RBC) [Ratio]Ordered By: Nasir Garcia on 12-05-2022 Erythrocyte distribution width (RBC) [Ratio] 22.5 % 11.9-15.3 [facility] Estimated glomerular filtrat ion rate (GFR) non- AmericanOrdered By: Nasir Garcia on 12-05-2022 GFR/1.73 sq M.predicted among non-blacks MDRD (S/P/Bld) [Vol rate/Area] > 60 mL/Min [facility] Globulin Calc (S) [Mass/Vol] Ordered By: Nasir Garcia on 12-05-2022 Globulin (S) [Mass/Vol] 3.0 g/dL [facility] HCG ( test) IA.rapi d Ql (U)Ordered By: Nasir Garcia on 12-05-2022 HCG ( test) Ql (U) Negative [facility] Hematocrit Auto (Bld) [Volum e fraction]Ordered By: Nasir Garcia on 12-05-2022 Hematocrit (Bld) [Volume fraction] 40.2 % 34.0-46.4 [facility] Hemoglobin [Mass/volume] in BloodOrdered By: Nasir Garcia on 12-05-2022 Hemoglobin (Bld) [Mass/Vol] 13.0 g/dL 11.8-15.4 [facility] Ketones Auto test strip (U) [Mass/Vol]Ordered By: Nasir Garcia on 12-05-2022 Ketones (U) [Mass/Vol] Negative Negative [facility] - Chemistry and C hemistry - challengeOrdered By: Nasir Garcia on 12-05-2022 Lipase [Catalytic activity/Vol] 32.0 U/L 22-51 [facility] Leukocytes [#/volume] correc taurus for nucleated erythrocytes in Blood by Automated counOrdered By: Nasir Garcia on 12-05-2022 WBC corrected for nucl RBC Auto (Bld) [#/Vol] 13.9 10*3/uL 3.8-11.6 [facility] Lymphocytes Auto (Bld) [#/Vo l]Ordered By: Nasir Garcia on 12-05-2022 Lymphocytes (Bld) [#/Vol] 3.5 10*3/uL 1.00-4.8 [facility] Lymphocytes/100 WBC Auto (Bl d)Ordered By: Nasir Garcia on 12-05-2022 Lymphocytes/100 WBC (Bld) 25.0 % . [facility] MCH Auto (RBC) [Entitic mass ]Ordered By: Nasir Garcia on 12-05-2022 MCH (RBC) [Entitic mass] 24.2 pg 24.7-34.3 [facility] MCHC Auto (RBC) [Mass/Vol]Or dered By: Nasir Garcia on 12-05-2022 MCHC (RBC) [Mass/Vol] 32.4 g/dL 32.0-35.[address] [facility] MCV Auto (RBC) [Entitic vol] Ordered By: Nasir Garcia on 12-05-2022 MCV (RBC) [Entitic vol] 74.8 fL 80-100 [facility] Monocyte distribution width [Entitic volume] in Blood by AutomatedOrdered By: Nasir Garcia on 12-05-2022 Monocyte distribution width Auto (Bld) [Entitic vol] 19.65 % 0.00-20.00 [facility] Monocytes Auto (Bld) [#/Vol] Ordered By: Nasir Garcia on 12-05-2022 Monocytes (Bld) [#/Vol] 0.8 10*3/uL 0.0-0.8 [facility] Monocytes/100 WBC Auto (Bld) Ordered By: Nasir Garcia on 12-05-2022 Monocytes/100 WBC (Bld) 5.4 % . [facility] Neutrophils Auto (Bld) [#/Vo l]Ordered By: Nasir Garcia on 12-05-2022 Neutrophils (Bld) [#/Vol] 9.3 10*3/uL 1.8-7.7 [facility] Neutrophils/100 WBC Auto (Bl d)Ordered By: Nasir Garcia on 12-05-2022 Neutrophils/100 WBC (Bld) 67.3 % . [facility] No Panel InformationOrdered By: Nasir Garcia on 12-05-2022 Estimated GFR () > 60 mL/Min [facility] Comment on above: GFR estimated refere nce range: According to KDOQI guidelines, <60 ml/min/1.73m2 is sufficient to diagnose a patient with chronic kidney disease. Pharmacy Creatinine Clearance (Chem 138.72 [facility] Nucleated erythrocytes [Pres ence] in Blood by Automated countOrdered By: Nasir Garcia on 12-05-2022 Nucleated RBC Auto Ql (Bld) 0.2 /100{WBC} 0-0.5 [facility] Platelet mean volume Auto (B ld) [Entitic vol]Ordered By: Nasir Garcia on 12-05-2022 Platelet mean volume (Bld) [Entitic vol] 9.7 fL 6.3-10.7 [facility] Platelets Auto (Bld) [#/Vol] Ordered By: Nasir Garcia on 12-05-2022 Platelets (Bld) [#/Vol] 283 10*3/uL 150-450 [facility] Protein Auto test strip (U) [Mass/Vol]Ordered By: Nasir Garcia on 12-05-2022 Protein (U) [Mass/Vol] Negative Negative [facility] Protein [Mass/volume] in Ser um or PlasmaOrdered By: Nasir Garcia on 12-05-2022 Protein [Mass/Vol] 6.7 g/dL 6.1-7.9 [facility] RBC Auto (Bld) [#/Vol]Ordere d By: Nasir Garcia on 12-05-2022 RBC (Bld) [#/Vol] 5.38 10*6/uL 3.60-5.00 [facility] Serum or plasma alanine matias otransferase measurement without P-5'-P (enzymatic activiOrdered By: Nasir Garcia on 12-05-2022 ALT No additional P-5'-P [Catalytic activity/Vol] 20 U/L 10-60 [facility] Serum or plasma albumin/glob ulin mass ratioOrdered By: Nasir Garcia on 12-05-2022 Albumin/Globulin [Mass ratio] 1.2 {ratio} [facility] Serum or plasma alkaline vishal sphatase measurement (enzymatic activity/volume)Ordered By: Nasir Garcia on 12-05-2022 ALP [Catalytic activity/Vol] 102 U/L 32-92 [facility] Serum or plasma anion gap de terminationOrdered By: Nasir Garcia on 12-05-2022 Anion gap [Moles/Vol] 13.8 mmol/L 6.0-15.0 [facility] Serum or plasma aspartate am inotransferase measurement (enzymatic activity/volume)Ordered By: Nasir Garcia on 12-05-2022 AST [Catalytic activity/Vol] 22 U/L 10-42 [facility] Serum or plasma calcium lauren urement (mass/volume)Ordered By: Nasir Garcia on 12-05-2022 Calcium [Mass/Vol] 8.9 mg/dL 8.2-10.2 [facility] Serum or plasma chloride rosaline surement (moles/volume)Ordered By: Nasir Garcia on 12-05-2022 Chloride [Moles/Vol] 102 mmol/L 95-114 [facility] Serum or plasma glucose lauren urement (mass/volume)Ordered By: Nasir Garcia on 12-05-2022 Glucose [Mass/Vol] 123 mg/dL 70-100 [facility] Comment on above: ADA recommended refe rence rangeRandom Glucose Reference Range is dependent on time and content of last meal. Glucose of more than 200 mg/dL in a nonstressed, ambulatory subject supports the diagnosis of Diabetes Mellitus. Serum or plasma potassium me asurement (moles/volume)Ordered By: Nasir Garcia on 12-05-2022 Potassium [Moles/Vol] 4.4 mmol/L 3.5-5.[address] [facility] Serum or plasma sodium measu rement (moles/volume)Ordered By: Nasir Garcia on 12-05-2022 Sodium [Moles/Vol] 137 mmol/L 136-146 [facility] Serum or plasma total biliru bin measurement (mass/volume)Ordered By: Nasir Garcia on 12-05-2022 Bilirubin [Mass/Vol] 0.3 mg/dL 0.3-1.2 [facility] Serum or plasma total carbon dioxide measurement (moles/volume)Ordered By: Nasir Garcia on 12-05-2022 CO2 [Moles/Vol] 25.6 mmol/L 22.0-30.0 [facility] Serum or plasma urea nitroge n measurement (mass/volume)Ordered By: Nasir Garcia on 12-05-2022 Urea nitrogen [Mass/Vol] 17 mg/dL 9- [facility] Urine appearanceOrdered By: Nasir Garcia on 12-05-2022 Appearance (U) Clear Clear [facility] Urine colorOrdered By: Nasir Garcia on 12-05-2022 Color (U) Yellow Yellow [facility] Urine glucose measurement by automated test strip (mass/volume)Ordered By: Nasir Garcia on 12-05-2022 Glucose Auto test strip (U) [Mass/Vol] Normal mg/dL Normal [facility] Urine hemoglobin detection b y automated test stripOrdered By: Nasir Garcia on 12-05-2022 Hemoglobin Auto test strip Ql (U) Negative Negative [facility] Urine leukocyte esterase det ection by automated test stripOrdered By: Nasir Garcia on 12-05-2022 Leukocyte esterase Auto test strip Ql (U) Negative Negative [facility] Urine nitrite detection by a utomated test stripOrdered By: Nasir Garcia on 12-05-2022 Nitrite Auto test strip Ql (U) Negative Negative [facility] Urobilinogen Auto test strip (U) [Mass/Vol]Ordered By: Nasir Garcia on 12-05-2022 Urobilinogen (U) [Mass/Vol] Normal mg/dL Normal [facility] WBC Auto (Bld) [#/Vol]Ordere d By: Nasri Garcia on 12-05-2022 WBC (Bld) [#/Vol] 13.9 10*3/uL 3.8-11.6 [facility] pH Auto test strip (U)Ordere d By: Nasir Garcia on 12-05-2022 pH (U) 1.025 [pH] 1.001-1.03 0 [facility] pH (U) 6.5 [pH] 5.0-9.0 [facility] Anisocytosis LM Ql (Bld)Orde red By: Renato Kumar on 09-07-2022 Anisocytosis Ql (Bld) Marked [facility] Basophils Auto (Bld) [#/Vol] Ordered By: Renato Kumar on 09-07-2022 Basophils (Bld) [#/Vol] 0.2 10*3/uL 0.0-0.2 [facility] Basophils/100 WBC Auto (Bld) Ordered By: Renato Kumar on 09-07-2022 Basophils/100 WBC (Bld) 1.0 % . [facility] Creatine kinase [Enzymatic a ctivity/volume] in Serum or PlasmaOrdered By: Renato Kumar on 09-07-2022 CK [Catalytic activity/Vol] 72 U/L 22-269 [facility] Creatinine and Glomerular fi ltration rate.predicted panel (S/P/Bld)Ordered By: Renato Kumar on 09-07-2022 Creatinine [Mass/Vol] 0.52 mg/dL 0.44-1.[address] [facility] Eosinophils Auto (Bld) [#/Vo l]Ordered By: Renato Kumar on 09-07-2022 Eosinophils (Bld) [#/Vol] 0.1 10*3/uL 0.0-0.45 [facility] Eosinophils/100 WBC Auto (Bl d)Ordered By: Renato Kumar on 09-07-2022 Eosinophils/100 WBC (Bld) 0.8 % . [facility] Erythrocyte distribution wid th Auto (RBC) [Ratio]Ordered By: Renato Kumar on 09-07-2022 Erythrocyte distribution width (RBC) [Ratio] 20.7 % 11.9-15.3 [facility] Estimated glomerular filtrat ion rate (GFR) non- AmericanOrdered By: Renato Kumar on 09-07-2022 GFR/1.73 sq M.predicted among non-blacks MDRD (S/P/Bld) [Vol rate/Area] > 60 mL/Min [facility] Hematocrit Auto (Bld) [Volum e fraction]Ordered By: Renato Kumar on 09-07-2022 Hematocrit (Bld) [Volume fraction] 37.8 % 34.0-46.4 [facility] Hemoglobin [Mass/volume] in BloodOrdered By: Renato Kumar on 09-07-2022 Hemoglobin (Bld) [Mass/Vol] 11.4 g/dL 11.8-15.4 [facility] Hypochromia LM Ql (Bld)Order ed By: Renato Kumar on 09-07-2022 Hypochromia Ql (Bld) Moderate [facility] - Hematology and Cell countsOrdered By: Renato Kumar on 09-07-2022 Nucleated RBC/100 WBC (Bld) [Ratio] 0.0 % 0-0.5 [facility] Leukocytes [#/volume] in Blo od by Automated countOrdered By: Renato Kumar on 09-07-2022 WBC (Bld) [#/Vol] 15.2 10*3/uL 4.5-11.0 [facility] Lymphocytes Auto (Bld) [#/Vo l]Ordered By: Renato Kumar on 09-07-2022 Lymphocytes (Bld) [#/Vol] 3.2 10*3/uL 1.00-4.8 [facility] Lymphocytes/100 WBC Auto (Bl d)Ordered By: Renato Kumar on 09-07-2022 Lymphocytes/100 WBC (Bld) 20.8 % . [facility] MCH Auto (RBC) [Entitic mass ]Ordered By: Renato Kmuar on 09-07-2022 MCH (RBC) [Entitic mass] 20.2 pg 24.7-34.3 [facility] MCHC Auto (RBC) [Mass/Vol]Or dered By: Renato Kumar on 09-07-2022 MCHC (RBC) [Mass/Vol] 30.1 g/dL 32.0-35.[address] [facility] MCV Auto (RBC) [Entitic vol] Ordered By: Renato Kumar on 09-07-2022 MCV (RBC) [Entitic vol] 67.0 fL 80-100 [facility] Macrocytes LM Ql (Bld)Ordere d By: Renato Kumar on 09-07-2022 Macrocytes Ql (Bld) Slight [facility] Microcytes LM Ql (Bld)Ordere d By: Renato Kumar on 09-07-2022 Microcytes Ql (Bld) Moderate [facility] Monocytes Auto (Bld) [#/Vol] Ordered By: Renato Kumar on 09-07-2022 Monocytes (Bld) [#/Vol] 0.9 10*3/uL 0.0-0.8 [facility] Monocytes/100 WBC Auto (Bld) Ordered By: Renato Kumar on 09-07-2022 Monocytes/100 WBC (Bld) 5.9 % . [facility] Neutrophils Auto (Bld) [#/Vo l]Ordered By: Renato Kumar on 09-07-2022 Neutrophils (Bld) [#/Vol] 10.9 10*3/uL 1.8-7.7 [facility] Neutrophils/100 WBC Auto (Bl d)Ordered By: Renato Kumar on 09-07-2022 Neutrophils/100 WBC (Bld) 71.5 % . [facility] No Panel InformationOrdered By: Renato Kumar on 09-07-2022 Estimated GFR () > 60 mL/Min [facility] Comment on above: GFR estimated refere nce range: According to KDOQI guidelines, <60 ml/min/1.73m2 is sufficient to diagnose a patient with chronic kidney disease. Pharmacy Creatinine Clearance (Chem 182.66 [facility] Platelet adequacy [Presence] in Blood by Light microscopyOrdered By: Renato Kumar on 09-07-2022 Platelets LM Ql (Bld) Normal Normal [facility] Platelet mean volume Auto (B ld) [Entitic vol]Ordered By: Renato Kumar on 09-07-2022 Platelet mean volume (Bld) [Entitic vol] 9.1 fL 6.3-10.7 [facility] Platelet morphology finding [Identifier] in BloodOrdered By: Renato Kumar on 09-07-2022 Platelet morphology finding Nom (Bld) Normal Normal [facility] Platelets Auto (Bld) [#/Vol] Ordered By: Renato Kumar on 09-07-2022 Platelets (Bld) [#/Vol] 275 10*3/uL 150-450 [facility] RBC Auto (Bld) [#/Vol]Ordere d By: Renato Kumar on 09-07-2022 RBC (Bld) [#/Vol] 5.64 10*6/uL 3.60-5.00 [facility] RBC morphologyOrdered By: Rachael Kumar on 09-07-2022 RBC morphology finding Nom (Bld) N/A [facility] Red blood cell stomatocyte d etectionOrdered By: Renato Kumar on 09-07-2022 Stomatocytes LM Ql (Bld) Slight [facility] Serum or plasma anion gap de terminationOrdered By: Renato Kumar on 09-07-2022 Anion gap [Moles/Vol] 16.4 mmol/L 6.0-15.0 [facility] Serum or plasma calcium lauren urement (mass/volume)Ordered By: Renato Kumar on 09-07-2022 Calcium [Mass/Vol] 9.2 mg/dL 8.2-10.2 [facility] Serum or plasma chloride rosaline surement (moles/volume)Ordered By: Renato Kumar on 09-07-2022 Chloride [Moles/Vol] 103 mmol/L 95-114 [facility] Serum or plasma creatine kin ase MB (CKMB)/total creatine kinase (CK) ratio by calculaOrdered By: Renato Kumar on 09-07-2022 CK.MB Calc [Catalytic fraction] 1.5 % 0.00-2.50 [facility] Serum or plasma creatine kin ase MB measurement (mass/volume)Ordered By: Renato Kumar on 09-07-2022 CK.MB [Mass/Vol] 1.1 ng/mL 0.6-6.3 [facility] Serum or plasma glucose lauren urement (mass/volume)Ordered By: Renato Kumar on 09-07-2022 Glucose [Mass/Vol] 100 mg/dL 70-100 [facility] Comment on above: ADA recommended refe rence rangeRandom Glucose Reference Range is dependent on time and content of last meal. Glucose of more than 200 mg/dL in a nonstressed, ambulatory subject supports the diagnosis of Diabetes Mellitus. Serum or plasma potassium me asurement (moles/volume)Ordered By: Renato Kumar on 09-07-2022 Potassium [Moles/Vol] 4.0 mmol/L 3.5-5.[address] [facility] Serum or plasma sodium measu rement (moles/volume)Ordered By: Renato Kumar on 09-07-2022 Sodium [Moles/Vol] 139 mmol/L 136-146 [facility] Serum or plasma total carbon dioxide measurement (moles/volume)Ordered By: Renato Kumar on 09-07-2022 CO2 [Moles/Vol] 23.6 mmol/L 22.0-30.0 [facility] Serum or plasma urea nitroge n measurement (mass/volume)Ordered By: Renato Kumar on 09-07-2022 Urea nitrogen [Mass/Vol] 14 mg/dL 9- [facility] Troponin I.cardiac [Mass/vol ume] in Serum or Plasma by High sensitivity methodOrdered By: Renato Kumar on 09-07-2022 Troponin I.cardiac High sensitivity method [Mass/Vol] 5 pg/mL 0-15 [facility] HCG ( test) IA.rapi d Ql (U)Ordered By: Piero Veronica on 07-09-2022 HCG ( test) Ql (U) Negative [facility] Basophils Auto (Bld) [#/Vol] Ordered By: Stephanie Mcmahan on 07-05-2022 Basophils (Bld) [#/Vol] 0.1 10*3/uL 0.0-0.2 [facility] Basophils/100 WBC Auto (Bld) Ordered By: Stephanie Mcmahan on 07-05-2022 Basophils/100 WBC (Bld) 0.5 % . [facility] Blood hemoglobin measurement (mass/volume)Ordered By: Stephanie Mcmahan on 07-05-2022 Hemoglobin (Bld) [Mass/Vol] 10.3 g/dL 11.8-15.4 [facility] Blood leukocytes automated c ount (number/volume)Ordered By: Stephanie Mcmahan on 07-05-2022 WBC (Bld) [#/Vol] 13.2 10*3/uL 4.5-11.0 [facility] Eosinophils Auto (Bld) [#/Vo l]Ordered By: Stephanie Mcmahan on 07-05-2022 Eosinophils (Bld) [#/Vol] 0.1 10*3/uL 0.0-0.45 [facility] Eosinophils/100 WBC Auto (Bl d)Ordered By: Stephanie Mcmahan on 07-05-2022 Eosinophils/100 WBC (Bld) 0.8 % . [facility] Erythrocyte distribution wid th Auto (RBC) [Ratio]Ordered By: Stephanie Mcmahan on 07-05-2022 Erythrocyte distribution width (RBC) [Ratio] 17.0 % 11.9-15.3 [facility] Hematocrit Auto (Bld) [Volum e fraction]Ordered By: Stephanie Mcmahan on 07-05-2022 Hematocrit (Bld) [Volume fraction] 33.6 % 34.0-46.4 [facility] Laboratory - Hematology and Cell countsOrdered By: Stephanie Mcmahan on 07-05-2022 Nucleated RBC/100 WBC (Bld) [Ratio] 0.0 % 0-0.5 [facility] Lymphocytes Auto (Bld) [#/Vo l]Ordered By: Stephanie Mcmahan on 07-05-2022 Lymphocytes (Bld) [#/Vol] 2.4 10*3/uL 1.00-4.8 [facility] Lymphocytes/100 WBC Auto (Bl d)Ordered By: Stephanie Mcmahan on 07-05-2022 Lymphocytes/100 WBC (Bld) 18.5 % . [facility] MCH Auto (RBC) [Entitic mass ]Ordered By: Stephanie Mcmahan on 07-05-2022 MCH (RBC) [Entitic mass] 21.8 pg 24.7-34.3 [facility] MCHC Auto (RBC) [Mass/Vol]Or dered By: Stephanie Mcmahan on 07-05-2022 MCHC (RBC) [Mass/Vol] 30.7 g/dL 32.0-35.[address] [facility] MCV Auto (RBC) [Entitic vol] Ordered By: Stephanie Mcmahan on 07-05-2022 MCV (RBC) [Entitic vol] 71.1 fL 80-100 [facility] Monocytes Auto (Bld) [#/Vol] Ordered By: Stpehanie Mcmahan on 07-05-2022 Monocytes (Bld) [#/Vol] 0.6 10*3/uL 0.0-0.8 [facility] Monocytes/100 WBC Auto (Bld) Ordered By: Stephanie Mcmahan on 07-05-2022 Monocytes/100 WBC (Bld) 4.4 % . [facility] Neutrophils Auto (Bld) [#/Vo l]Ordered By: Stephanie Mcmahan on 07-05-2022 Neutrophils (Bld) [#/Vol] 10.0 10*3/uL 1.8-7.7 [facility] Neutrophils/100 WBC Auto (Bl d)Ordered By: Stephanie Mcmahan on 07-05-2022 Neutrophils/100 WBC (Bld) 75.8 % . [facility] Platelet mean volume Auto (B ld) [Entitic vol]Ordered By: Stephanie Mcmahan on 07-05-2022 Platelet mean volume (Bld) [Entitic vol] 9.5 fL 6.3-10.7 [facility] Platelets Auto (Bld) [#/Vol] Ordered By: Stephanie Mcmahan on 07-05-2022 Platelets (Bld) [#/Vol] 367 10*3/uL 150-450 [facility] RBC Auto (Bld) [#/Vol]Ordere d By: Stephanie Mcmahan on 07-05-2022 RBC (Bld) [#/Vol] 4.72 10*6/uL 3.60-5.00 [facility] Automated erythrocytes count in urine sediment (number/area)Ordered By: Jesus Petersen on 06-04-2022 RBC Auto (Urine sed) [#/Area] Innumerable [HPF] 0-4 [facility] Automated leukocytes count i n urine sediment (number/area)Ordered By: Jesus Petersen on 06-04-2022 WBC Auto (Urine sed) [#/Area] 1-2 [HPF] 0-4 [facility] Basophils Auto (Bld) [#/Vol] Ordered By: Jesus Petersen on 06-04-2022 Basophils (Bld) [#/Vol] 0.1 10*3/uL 0.0-0.2 [facility] Basophils/100 WBC Auto (Bld) Ordered By: Jesus Petersen on 06-04-2022 Basophils/100 WBC (Bld) 0.5 % . [facility] Bilirubin Test strip Ql (U)O rdered By: Jesus Petersen on 06-04-2022 Bilirubin Ql (U) Negative Negative [facility] Blood hemoglobin measurement (mass/volume)Ordered By: Jesus Petersen on 06-04-2022 Hemoglobin (Bld) [Mass/Vol] 10.5 g/dL 11.8-15.4 [facility] Blood leukocytes automated c ount (number/volume)Ordered By: Jesus Petersen on 06-04-2022 WBC (Bld) [#/Vol] 14.2 10*3/uL 4.5-11.0 [facility] Color Auto (U)Ordered By: Wai Petersen on 06-04-2022 Color (U) [place] Yellow [facility] Eosinophils Auto (Bld) [#/Vo l]Ordered By: Jesus Petersen on 06-04-2022 Eosinophils (Bld) [#/Vol] 0.1 10*3/uL 0.0-0.45 [facility] Eosinophils/100 WBC Auto (Bl d)Ordered By: Jesus Petersen on 06-04-2022 Eosinophils/100 WBC (Bld) 0.9 % . [facility] Erythrocyte distribution wid th Auto (RBC) [Ratio]Ordered By: Jesus Petersen on 06-04-2022 Erythrocyte distribution width (RBC) [Ratio] 16.3 % 11.9-15.3 [facility] HCG ( test) IA.rapi d Ql (U)Ordered By: Jesus Petersen on 06-04-2022 HCG ( test) Ql (U) Negative [facility] Hematocrit Auto (Bld) [Volum e fraction]Ordered By: Jesus Petersen on 06-04-2022 Hematocrit (Bld) [Volume fraction] 33.3 % 34.0-46.4 [facility] Ketones Auto test strip (U) [Mass/Vol]Ordered By: Jesus Petersen on 06-04-2022 Ketones (U) [Mass/Vol] Negative [facility] and Cell countsOrdered By: Jesus Petersen on 06-04-2022 Nucleated RBC/100 WBC (Bld) [Ratio] 0.0 % 0-0.5 [facility] Laboratory - UrinalysisOrder ed By: Jesus Petersen on 06-04-2022 Hyaline casts LM Ql (Urine sed) 0-8 [LPF] 0-8 [facility] Lymphocytes Auto (Bld) [#/Vo l]Ordered By: Jesus Petersen on 06-04-2022 Lymphocytes (Bld) [#/Vol] 3.1 10*3/uL 1.00-4.8 [facility] Lymphocytes/100 WBC Auto (Bl d)Ordered By: Jesus Petersen on 06-04-2022 Lymphocytes/100 WBC (Bld) 21.9 % . [facility] MCH Auto (RBC) [Entitic mass ]Ordered By: Jesus Petersen on 06-04-2022 MCH (RBC) [Entitic mass] 23.9 pg 24.7-34.3 [facility] MCHC Auto (RBC) [Mass/Vol]Or dered By: Jesus Petersen on 06-04-2022 MCHC (RBC) [Mass/Vol] 31.4 g/dL 32.0-35.0 [facility] MCV Auto (RBC) [Entitic vol] Ordered By: Jesus Petersen on 06-04-2022 MCV (RBC) [Entitic vol] 76.2 fL 80-100 [facility] Monocytes Auto (Bld) [#/Vol] Ordered By: Jesus Petersen on 06-04-2022 Monocytes (Bld) [#/Vol] 0.8 10*3/uL 0.0-0.8 [facility] Monocytes/100 WBC Auto (Bld) Ordered By: Jesus Petersen on 06-04-2022 Monocytes/100 WBC (Bld) 5.6 % . [facility] Neutrophils Auto (Bld) [#/Vo l]Ordered By: Jesus Petersen on 06-04-2022 Neutrophils (Bld) [#/Vol] 10.1 10*3/uL 1.8-7.7 [facility] Neutrophils/100 WBC Auto (Bl d)Ordered By: Jesus Petersen on 06-04-2022 Neutrophils/100 WBC (Bld) 71.1 % . [facility] Nitrite Test strip Ql (U)Ord ered By: Jesus Petersen on 06-04-2022 Nitrite Ql (U) Negative Negative [facility] Platelet mean volume Auto (B ld) [Entitic vol]Ordered By: Jesus Petersen on 06-04-2022 Platelet mean volume (Bld) [Entitic vol] 9.8 fL 6.3-10.7 [facility] Platelets Auto (Bld) [#/Vol] Ordered By: Jesus Petersen on 06-04-2022 Platelets (Bld) [#/Vol] 321 10*3/uL 150-450 [facility] Protein Auto test strip (U) [Mass/Vol]Ordered By: Jesus Petersen on 06-04-2022 Protein (U) [Mass/Vol] Negative [facility] RBC Auto (Bld) [#/Vol]Ordere d By: Jesus Petersen on 06-04-2022 RBC (Bld) [#/Vol] 4.37 10*6/uL 3.60-5.00 [facility] Specific gravity Auto test s trip (U) [Rel density]Ordered By: Jesus Petersen on 06-04-2022 Specific gravity (U) [Rel density] 1.008 1.001-1.03 0 [facility] Squamous epithelial cells de tection in urine sediment by light microscopyOrdered By: Jesus Petersen on 06-04-2022 Epithelial cells.squamous LM Ql (Urine sed) 1-2 [HPF] 0-2 [facility] Urine bacteria detection by automated methodOrdered By: Jesus Petersen on 06-04-2022 Bacteria Auto Ql (U) None seen None Seen [facility] Urine clarity by refractomet ry automatedOrdered By: Jesus Petersen on 06-04-2022 Clarity Refractometry automated (U) Clear Clear [facility] Urine glucose measurement by automated test strip (mass/volume)Ordered By: Jesus Petersen on 06-04-2022 Glucose Auto test strip (U) [Mass/Vol] Normal mg/dL Normal [facility] Urine hemoglobin detection b y automated test stripOrdered By: Jesus Petersen on 06-04-2022 Hemoglobin Auto test strip Ql (U) 3+ Negative [facility] Urine leukocyte esterase det ection by automated test stripOrdered By: Jesus Petersen on 06-04-2022 Leukocyte esterase Auto test strip Ql (U) Negative Negative [facility] Urobilinogen Auto test strip (U) [Mass/Vol]Ordered By: Jesus Petersen on 06-04-2022 Urobilinogen (U) [Mass/Vol] Normal mg/dL Normal [facility] pH Auto test strip (U)Ordere d By: Jesus Petersen on 06-04-2022 pH (U) 6.0 [pH] 5.0-9.0 [facility] Basophils Auto (Bld) [#/Vol] Ordered By: Stephanie Mcmahan on 05-30-2022 Basophils (Bld) [#/Vol] 0.1 10*3/uL 0.0-0.2 [facility] Basophils/100 WBC Auto (Bld) Ordered By: Stephanie Mcmahan on 05-30-2022 Basophils/100 WBC (Bld) 0.8 % . [facility] Blood anisocytosis detection Ordered By: Stephanie Mcmahan on 05-30-2022 Anisocytosis Ql (Bld) Slight [facility] Blood hemoglobin measurement (mass/volume)Ordered By: Stephanie Mcmahan on 05-30-2022 Hemoglobin (Bld) [Mass/Vol] 10.5 g/dL 11.8-15.4 [facility] Blood leukocytes automated c ount (number/volume)Ordered By: Stephanie Mcmahan on 05-30-2022 WBC (Bld) [#/Vol] 8.1 10*3/uL 4.5-11.0 [facility] Blood polychromasia detectio n by light microscopyOrdered By: Stephanie Mcmahan on 05-30-2022 Polychromasia LM Ql (Bld) Slight [facility] COVID-19 Positive/NegativeOr dered By: Jah Almonte on 05-30-2022 SARS-CoV-2 (COVID-19) N gene JUDIT+probe Ql (Resp) Positive Negative [facility] Comment on above: Positive results yonathan l only be called to Providers for the following groups of patients: Pre-Surgical Testing, Emergency Room, and Inpatients. Results called at 1029 on 05/30/22 Testing for SARS-CoV-2 by RT-PCR This test was developed and its performance characteristics determined by [employer] ([employer]) and validated at the [facility]. This test has not been FDA cleared [...] determined by [employer] ([employer] and validated at the [facility]. This test has not been FDA cleared [...] (COVID-19) Ag IA.rapid Ql (Resp) Positive Negative [facility] Comment on above: This is a duplicate Laura SARS Antigen (JESSICA) result to be used for statistical tracking purpose only. Eosinophils Auto (Bld) [#/Vo l]Ordered By: Stephanie Mcmahan on 05-30-2022 Eosinophils (Bld) [#/Vol] 0.1 10*3/uL 0.0-0.45 [facility] Eosinophils/100 WBC Auto (Bl d)Ordered By: Stephanie Mcmahan on 05-30-2022 Eosinophils/100 WBC (Bld) 1.5 % . [facility] Erythrocyte distribution wid th Auto (RBC) [Ratio]Ordered By: Stephanie Mcmahan on 05-30-2022 Erythrocyte distribution width (RBC) [Ratio] 16.1 % 11.9-15.3 [facility] Hematocrit Auto (Bld) [Volum e fraction]Ordered By: Stephanie Mcmahan on 05-30-2022 Hematocrit (Bld) [Volume fraction] 33.6 % 34.0-46.4 [facility] Hypochromia detectionOrdered By: Stephanie Mcmahan on 05-30-2022 Hypochromia Ql (Bld) Moderate [facility] Laboratory - Hematology and Cell countsOrdered By: Stephanie Mcmahan on 05-30-2022 Nucleated RBC/100 WBC (Bld) [Ratio] 0.0 % 0-0.5 [facility] Lymphocytes Auto (Bld) [#/Vo l]Ordered By: Stephanie Mcmahan on 05-30-2022 Lymphocytes (Bld) [#/Vol] 2.1 10*3/uL 1.00-4.8 [facility] Lymphocytes/100 WBC Auto (Bl d)Ordered By: Stephanie Mcmahan on 05-30-2022 Lymphocytes/100 WBC (Bld) 26.5 % . [facility] MCH Auto (RBC) [Entitic mass ]Ordered By: Stephanie Mcmahan on 05-30-2022 MCH (RBC) [Entitic mass] 24.0 pg 24.7-34.3 [facility] MCHC Auto (RBC) [Mass/Vol]Or dered By: Stephanie Mcmahan on 05-30-2022 MCHC (RBC) [Mass/Vol] 31.1 g/dL 32.0-35.[address] [facility] MCV Auto (RBC) [Entitic vol] Ordered By: Stephanie Mcmahan on 05-30-2022 MCV (RBC) [Entitic vol] 77.0 fL 80-100 [facility] Monocytes Auto (Bld) [#/Vol] Ordered By: Stephanie Mcmahan on 05-30-2022 Monocytes (Bld) [#/Vol] 0.6 10*3/uL 0.0-0.8 [facility] Monocytes/100 WBC Auto (Bld) Ordered By: Stephanie Mcmahan on 05-30-2022 Monocytes/100 WBC (Bld) 7.2 % . [facility] Neutrophils Auto (Bld) [#/Vo l]Ordered By: Stephanie Mcmahan on 05-30-2022 Neutrophils (Bld) [#/Vol] 5.2 10*3/uL 1.8-7.7 [facility] Neutrophils/100 WBC Auto (Bl d)Ordered By: Stephanie Mcmahan on 05-30-2022 Neutrophils/100 WBC (Bld) 64.0 % . [facility] No Panel InformationOrdered By: Stephanie Mcmahan on 05-30-2022 Large Platelets Moderate [facility] Platelet Estimate Normal Normal [facility] Platelet Morphology Comment N/A [facility] No Panel InformationOrdered By: Jah Almonte on 05-30-2022 SARS Antigen (LFIA) [facility] Platelet mean volume Auto (B ld) [Entitic vol]Ordered By: Stephanie Mcmahan on 05-30-2022 Platelet mean volume (Bld) [Entitic vol] 9.6 fL 6.3-10.7 [facility] Platelets Auto (Bld) [#/Vol] Ordered By: Stephanie Mcmahan on 05-30-2022 Platelets (Bld) [#/Vol] 235 10*3/uL 150-450 [facility] RBC Auto (Bld) [#/Vol]Ordere d By: Stephanie Mcmahan on 05-30-2022 RBC (Bld) [#/Vol] 4.36 10*6/uL 3.60-5.00 [facility] RBC morphologyOrdered By: Karin Mcmahan on 05-30-2022 RBC morphology finding Nom (Bld) N/A [facility] .Auto Diff 1on 05-29-2022 Auto Cassia % 5 % Normal -12 [facility] Comment on above: Performed By: #### 1 [id number], [id number], 9970874, 0392635, [id number], 8376484, 5353976 #### [facility] (DEFAULT) [address] [place] [address] Baso Abs# 0.0 x10 Normal 0.0-0.2 [facility] Comment on above: Performed By: #### 1 [id number], [id number], 1664902, 0013968, [id number], 7763224, 2136842 #### [facility] (DEFAULT) [address] [place] [address]20[address] Basophils/100 WBC (Bld) 0.1 % Low 0.2-2.0 [facility] Comment on above: Performed By: #### 1 [id number], 56645987, 7483994, 3859823, 8402290172, 1880761, 8592088 #### [facility] (DEFAULT) [address] [place] [address] Eos Abs# 0.1 x10 Normal 0.0-0.4 [facility] Comment on above: Performed By: #### 1 [id number], 31049777, 7601362, 2032212, 8428844193, 2926254, 6122215 #### [facility] (DEFAULT) [address] [place] [address]65[address] Eosinophils/100 WBC (Bld) 0.8 % Low 0.9-4.0 [facility] Comment on above: Performed By: #### 1 [id number], 58133972, 2969001, 3393384, 3711228610, 3184129, 3983826 #### [facility] (DEFAULT) [address] [place] [address] Lymph Abs# 1.6 x10 Normal 1.3-2.9 [facility] Comment on above: Performed By: #### 1 [id number], 09965158, 5659091, 8053040, 8961864053, 6417307, 0335806 #### [facility] (DEFAULT) [address] [place] [address] Lymphocytes/100 WBC (Bld) 15 % Normal 14-48 [facility] Comment on above: Performed By: #### 1 [id number], 11521304, 2928570, 1989920, 8296868003, 0165631, 7061098 #### [facility] (DEFAULT) [address] [place] [address] Cassia Abs# 0.5 x10 Normal 0.0-0.8 [facility] Comment on above: Performed By: #### 1 [id number], 10483486, 1404306, 0740252, 2921924721, 1531170, 9810411 #### [facility] (DEFAULT) [address] [place] [address] Neut Abs# 8.5 x10 Normal 1.5-9.2 [facility] Comment on above: Performed By: #### 1 [id number], 65056027, 3436462, 8945821, 7615199667, 1446785, 1650474 #### [facility] (DEFAULT) [address] [place] [address] Neutrophils/100 WBC (Bld) 80 % Normal 44-88 [facility] Comment on above: Performed By: #### 1 [id number], 34268082, 8925261, 9083591, 7827664368, 1203723, 4064093 #### [facility] (DEFAULT) [address] [place] [address] CBC w/ Auto Diffon 2 Erythrocyte distribution width (RBC) [Ratio] 16.5 % High 11.5-15.0 [facility] Comment on above: Performed By: #### 1 [id number], 17208323, 0970103, 8207191, 8549210919, 4369720, 8020962 #### [facility] (DEFAULT) [address] [place] [address] Hematocrit (Bld) [Volume fraction] 36.0 % Normal 33.7-40.4 [facility] Comment on above: Performed By: #### 1 [id number], 59769320, 8544886, 4605701, 8407346697, 6087347, 9476800 #### [facility] (DEFAULT) [address] [place] [address] Hemoglobin (Bld) [Mass/Vol] 11.2 g/dL Low 11.3-15.9 [facility] Comment on above: Performed By: #### 1 [id number], 31584437, 8905052, 7906729, 7218574636, 1100427, 3720560 #### [facility] (DEFAULT) [address] [place] [address] Instr WBC 10.7 x10 Invalid Interpretation Code [facility] Comment on above: Performed By: #### 1 [id number], 71686863, 9706633, 2260979, 9341954691, 3425132, 2540667 #### [facility] (DEFAULT) [address] [place] [address] 12885 Man Diff? Auto Normal [facility] Comment on above: Performed By: #### 1 [id number], 76279066, 9845049, 4101456, 1776811830, 3168577, 6980530 #### [facility] (DEFAULT) [address] [place] [address] 10822 MCH (RBC) [Entitic mass] 24 pg Normal 24-34 [facility] Comment on above: Performed By: #### 1 [id number], 75445708, 2001904, 9915855, 7362408519, 9522049, 8193058 #### [facility] (DEFAULT) [address] [place] [address] 89808 MCHC (RBC) [Mass/Vol] 31 g/dL Normal 26-37 [facility] Comment on above: Performed By: #### 1 [id number], 88904297, 0872212, 3659343, 8633256614, 5309130, 5013708 #### [facility] (DEFAULT) [address] [place] [address] 39152 MCV (RBC) [Entitic vol] 78 fL Low 81-100 [facility] Comment on above: Performed By: #### 1 [id number], 10213813, 3358492, 2261125, 7028676772, 2173150, 8472304 #### [facility] (DEFAULT) [address] [place] [address] 12696 Platelet 261 x10 Normal 138-427 [facility] Comment on above: Performed By: #### 1 [id number], 42273971, 5301330, 7980530, 3908097669, 2312374, 2913080 #### [facility] (DEFAULT) [address] [place] [address] Platelet mean volume (Bld) [Entitic vol] 11.9 fL High 6.3-10.2 [facility] Comment on above: Performed By: #### 1 [id number], 32324234, 4062328, 5480462, 1602312575, 4345078, 9016354 #### [facility] (DEFAULT) [address] [place] [address] RBC 4.62 x10 Normal 3.70-5.30 [facility] Comment on above: Performed By: #### 1 882383747, 97374086, 1363281, 9910948, 6588241360, 4332996, 4965282 #### [facility] (DEFAULT) [address] [place] [address] WBC 10.7 x10 High 3.5-10.5 [facility] Comment on above: Performed By: #### 1 609391088, 88824894, 9133823, 0782742, 3887240348, 9358939, 4374231 #### [facility] (DEFAULT) [address] [place] [address] Standardon 05-29-2022 eGFR Non AA >60 Invalid Interpretation Code [facility] Comment on above: Performed By: #### 3 [id number], 95967138, [id number] #### [facility] (DEFAULT) [address] [place] [address] eGFR AA >60 Invalid Interpretation Code [facility] Comment on above: Result Comment: [employer] bhaskar Kidney disease could be indicated at eGFRs of less than 60 ml/min/1.73m2. Kidney Failure is indicated at less than 15 ml/min/1.73m2 Performed By: #### 3 [id number], 18942836, [id number] #### [facility] (DEFAULT) [address] [place] [address] Albumin [Mass/Vol] 4.0 g/dL Normal 3.5-5.0 [facility] Comment on above: Performed By: #### 3 [id number], 40914068, [id number] #### [facility] (DEFAULT) [address] [place] [address] 92418 Albumin/Globulin [Mass ratio] 1.4 {ratio} Normal 1.4-2.6 [facility] Comment on above: Performed By: #### 3 [id number], 95257896, 9185943819 #### [facility] (DEFAULT) [address] [place] [address] 10052 Alk Phos 91 IU/L Normal 32-91 [facility] Comment on above: Performed By: #### 3 [id number], 67027600, [id number] #### [facility] (DEFAULT) [address] [place] [address] ALT [Catalytic activity/Vol] 18.0 U/L Normal 14.0-54.0 [facility] Comment on above: Performed By: #### 3 [id number], 10608661, 2370509144 #### [facility] (DEFAULT) [address] [place] [address] Anion gap [Moles/Vol] 13.0 mmol/L Normal 5.0-19.0 [facility] Comment on above: Performed By: #### 3 [id number], 91189537, 3336406344 #### [facility] (DEFAULT) [address] [place] [address] AST [Catalytic activity/Vol] 22 U/L Normal 15-41 [facility] Comment on above: Performed By: #### 3 [id number], 75908258, [id number] #### [facility] (DEFAULT) [address] [place] [address] 67202 Bili Total 0.3 mg/dL Normal 0.3-1.2 [facility] Comment on above: Performed By: #### 3 [id number], 17733617, 1795797649 #### [facility] (DEFAULT) [address] [place] [address] 71777 Calcium [Mass/Vol] 8.8 mg/dL Low 8.9-10.3 [facility] Comment on above: Performed By: #### 3 [id number], 50315325, 3338850937 #### [facility] (DEFAULT) [address] [place] [address] 31402 Chloride [Moles/Vol] 103 mmol/L Normal 101-111 [facility] Comment on above: Performed By: #### 3 [id number], 30899925, [id number] #### [facility] (DEFAULT) [address] [place] [address] 74408 CO2 [Moles/Vol] 24 mmol/L Normal 21-32 [facility] Comment on above: Performed By: #### 3 [id number], 43875421, [id number] #### [facility] (DEFAULT) [address] [place] [address] Creatinine [Mass/Vol] 0.76 mg/dL Normal 0.60-1.30 [facility] Comment on above: Performed By: #### 3 [id number], 84577219, [id number] #### [facility] (DEFAULT) [address] [place] [address] 26966 Globulin (S) [Mass/Vol] 2.9 g/dL Normal 1.5-4.3 [facility] Comment on above: Performed By: #### 3 [id number], 30362568, [id number] #### [facility] (DEFAULT) [address] [place] [address] Glucose [Mass/Vol] 171.0 mg/dL High 74.0-118.0 [facility] Comment on above: Performed By: #### 3 [id number], 36210144, [id number] #### [facility] (DEFAULT) [address] [place] [address] 61019 Osmolality 279 mOsm/L Invalid Interpretation Code [facility] Comment on above: Performed By: #### 3 [id number], 95906635, [id number] #### [facility] (DEFAULT) [address] [place] [address] 72138 Potassium [Moles/Vol] 3.1 mmol/L Low 3.6-5.1 [facility] Comment on above: Performed By: #### 3 48764543, 90067671, [id number] #### [facility] (DEFAULT) [address] [place] [address] 21394 Protein [Mass/Vol] 6.9 g/dL Normal 6.5-8.1 [facility] Comment on above: Performed By: #### 3 [id number], 61520697, 9701775130 #### [facility] (DEFAULT) [address] [place] [address] 35086 Sodium [Moles/Vol] 137.0 mmol/L Normal 136.0-144 . 0 [facility] Comment on above: Performed By: #### 3 [id number], 74069265, [id number] #### [facility] (DEFAULT) [address] [place] [address] 15423 Urea nitrogen [Mass/Vol] 16 mg/dL Normal 8- [facility] Comment on above: Performed By: #### 3 [id number], 32494636, [id number] #### [facility] (DEFAULT) [address] [place] [address] 20807 Urea nitrogen/Creatinine [Mass ratio] 21.0 mg/mg High 4.6-16.2 [facility] Comment on above: Performed By: #### 3 [id number], 31596401, [id number] #### [facility] (DEFAULT) [address] [place] [address] 19187 ED Clinical Summaryon 2021 ED Clinical Summary [facility] - Emergency Department [address] [place] [address]163 ED Clinical Summary PERSON INFORMATION Name: NE KEITA Age: 36 Years Sex: FEMALE : 1985 MRN: Acct#: Visit Reason: VAGINAL BLEEDING Arrival: 05/29/2022 16:07:55 Discharge: 05/29/2022 19:00:00 LOS: 000 02:53 Check In: 05/29/2022 16:07:55 Checkout:05/29/2022 19:00:00 Address: [address] [place], [place] [address] PCP: Provider, None PROVIDER INFORMATION Provider Role Assigned Unassigned Kaiden Mcduffie PA-C ED PA 05/29/2022 16:09:09 Yahaira Espana DIVEMASTER Nurse 05/29/2022 16:58:49 VITALS INFORMATION Vital Sign Triage Latest Temperature Tympanic Temperature Temporal Artery Pulse Rate 96 bpm 96 bpm O2 Sat 97 % 97 % Respiratory Rate 18 br/min 18 br/min Blood Pressure /71 mmHg /71 mmHg MEDICAL INFORMATION Medications Given: Allergy Information: Waldo; Latex Allergy; penicillins; codeine PHYSICIAN DOCUMENTATION Patient: NE KEITA Age: 36 years Sex: FEMALE : 1985 Associated Diagnoses: Vaginal bleeding; Hypokalemia; Abnormal uterine bleeding Author: Kaiden Mcduffie PA-C Basic Information Time seen: Date & [...] scheduled to have a hysterectomy with her farrowing worker Dr. Mcmahan at [facility] around the 13 of July. Patient states [...] abdominal pain. Patient states she lives in [place] but is here in town for a which she states she was at the [facility]. States she was eating lunch when she [...] large clot about the size of a wilton. Patient states she continues to have bleeding and has soaked through 4 large pads in which she came into the emergency department for evaluation. Patient states that she has not contacted her farrowing worker in regards to her visit today. She [...] Health Status Allergies: Allergic Reactions (Selected) Moderate Waldo- No reactions were documented. Severity Not Documented [...] Abilify: PO, (more content not included)... Normal [facility] ED Note - Physicianon 2021 ED Note [...] scheduled to have a hysterectomy with her farrowing worker Dr. Mcmahan at [facility] around the 13 of July. Patient states [...] abdominal pain. Patient states she lives in [place] but is here in town for a which she states she was [place] the [facility]. States she was eating lunch when she [...] large clot about the size of a wilton. Patient states she continues to have bleeding and has soaked through 4 large pads in which she came into the emergency department for evaluation. Patient states that she has not contacted her farrowing worker in regards to her visit today. She [...] Health Status Allergies: Allergic Reactions (Selected) Moderate Waldo- No reactions were documented. Severity Not Documented [...] history: Resolved Rib pain on right side ([id number]): Resolved.. Surgical history: Biopsy cervical cone cold knife on 04/10/2018 at 32 Years. Biopsy cervical cone cold knife on 01/09/2018 at 32 Years. Cervical biopsy ([id number]) on 12/10/2017 at 32 Years. 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 ECC Negative Colposcopy ([id number]) on 12/10/2017 at 32 Years. (more content not included)... Normal [facility] ED Note-Nursingon 05-29-2022 ED Note-Nursing Pt. admitted to the ED via personal vehicle and walked back to room 6. Pt. complains of vaginal bleeding with wilton size clots. Pt. denies any pain or discomfort at this time. Pt. is alert and orientated x4. Pt. has a steady gait. Normal [facility] ED Patient Summaryon 022 ED Patient Summary [facility] - Emergency Department [address] [place], [place] [id number] PATIENT DISCHARGE INSTRUCTIONS Patient Information Name: NE [...] alcohol and/or drug addiction problems; contact the [facility] 20/05 Crisis Hotline -Text 4HGTC su 554466. If you received any narcotics, sedation, or [...] Stephanie Barlow [address], [address] [place], [place] [id number] Business (1) Within 3 to 5 days Comments: Please follow-up with your farrowing worker in 3 to 5 days. Please contact [...] pain develop weakness you should go to [facility] emergency department, where your farrowing worker is at and where you can be seen if needed. You may return here to the emergency department for any worsening or concerning symptoms. Medication Information: The exam and treatment you received today in the [facility] Emergency Department were for an urgent problem and are not intended as complete care. It is important for you to follow up with a doctor, nurse practitioner, or physician?s library assistant for ongoing care. If your symptoms [...] so we can reach you if necessary. [facility] Emergency Department has provided you with a complete list of medications post discharge. Please inform your primary care sales representative/provider of your visit and for further instruction on these medications. Any specific questions regarding your chronic medications and dosages should be discussed with your primary care physician(s) and/or pharmacist. New Medications [id number], [address], [place] [id number], [phone] ethinyl estradiol-norethindrone (Loestrin 21 1.5/30 oral tablet) [...] day. ARIP (more content not included)... Normal [facility] Extra Redon 05-29-2022 Tube Collected Yes Invalid Interpretation Code [facility] Comment on above: Performed By: #### 1 [id number], [id number], [id number], [id number], [id number], [id number], [id number] #### [facility] (DEFAULT) [address] [place] [address] 49203 Lactic Acidon 05-29-2022 Lactic Acid 15.2 mg/dL Normal 4.5-19.8 [facility] Comment on above: Performed By: #### 2 [id number] #### [facility] (DEFAULT) [address] [place] [address] 07156 Lipaseon 05-29-2022 Lipase Level 25.0 IU/L Normal 22.0-51.0 [facility] Comment on above: Performed By: #### 1 [id number], [id number], 7878807, 0332244, [id number], 6029324, 7283231 #### [facility] (DEFAULT) [address] [place] [address] PTon 05-29-2022 INR Coag (PPP) [Relative time] 0.96 {INR} Normal 0.91-1.11 [facility] Comment on above: Performed By: #### 1 [id number], [id number], 1744308, 1419014, [id number], 4079271, 5453000 #### [facility] (DEFAULT) [address] [place] [address] PT 10.4 second(s) Normal 9.7-11.8 [facility] Comment on above: Performed By: #### 1 [id number], [id number], 6167053, 8275965, [id number], 1436371, 0267962 #### [facility] (DEFAULT) [address] [place] [address] 95259 PTTon 05-29-2022 PTT 26 second(s) Normal 25-35 [facility] Comment on above: Performed By: #### 1 [id number], 10204915, 9935584, 8192104, [id number], 7297949, 2979802 #### [facility] (DEFAULT) [address] [place], [place] [address] Test Urine 1on U Preg Negative Normal [facility] Comment on above: Performed By: #### 3 [id number], 06207137, [id number] #### [facility] (DEFAULT) [address] [place] [address] 42137 U Preg Internal Control Pass [facility] Comment on above: Performed By: #### 3 [id number], 91578903, [id number] #### [facility] (DEFAULT) [address] [place] [address] 65312 UA [id number] 05-29-2022 UA Bacteria None [facility] Comment on above: Order Comment: Urina lysis Microscopic order added on by Discern Expert Rules system. Performed By: #### 3 [id number], 99148491, [id number] #### [facility] (DEFAULT) [address] [place] [address] 78753 UA RBC Gross Blood Normal [facility] Comment on above: Order Comment: Urina lysis Microscopic order added on by Red Advertising Expert Rules system. Performed By: #### 3 [id number], [id number], [id number] #### [facility] (DEFAULT) [address] [place] [address] UA WBC None Seen [facility] Comment on above: Order Comment: Urina lysis Microscopic order added on by Red Advertising Expert Rules system. Performed By: #### 3 [id number], 84727414, [id number] #### [facility] (DEFAULT) [address] [place] [address] UA w Culture if Ind Standard on 05-29-2022 Breakpoint UA [facility] Comment on above: Performed By: #### 3 [id number], 65452204, [id number] #### [facility] (DEFAULT) [address] [place] [address] 32158 Color (U) Red [facility] Comment on above: Result Comment: Test cannot be satisfactorily determined due to intensely colored urine. Performed By: #### 3 [id number], 83664939, [id number] #### [facility] (DEFAULT) [address] [place] [address] Culture? Not Indicated Invalid Interpretation Code [facility] Comment on above: Result Comment: Resu lt created by rule GL_MAGR_ADD_UA_CULT Performed By: #### 3 [id number], 25164956, [id number] #### [facility] (DEFAULT) [address] [place] [address] 17620 Glucose (U) [Mass/Vol] Negative Normal [facility] Comment on above: Performed By: #### 3 [id number], 78284660, [id number] #### [facility] (DEFAULT) [address] [place] [address] 05243 Ketones Ql (U) Negative [facility] Comment on above: Performed By: #### 3 13493929, 51487120, [id number] #### [facility] (DEFAULT) [address] [place] [address] Micro? Not Indicated Invalid Interpretation Code [facility] Comment on above: Result Comment: Resu lt created by rule GL_MAGR_ADD_UA_MICRO Result created by rule GL_MAGR_ADD_UA_MICRO Performed By: #### 3 [id number], 93906561, [id number] #### [facility] (DEFAULT) [address] [place] [address] 95185 UA Bilirubin SMALL Abnormal [facility] Comment on above: Performed By: #### 3 [id number], 94835829, [id number] #### [facility] (DEFAULT) [address] [place] [address] 42862 UA Blood LARGE Abnormal NEGATIVE [facility] Comment on above: Performed By: #### 3 [id number], 52725025, [id number] #### [facility] (DEFAULT) [address] [place] [address] 58713 UA Clarity TURBID Abnormal CLEAR [facility] Comment on above: Performed By: #### 3 [id number], 76092659, [id number] #### [facility] (DEFAULT) [address] [place] [address] 40440 UA Leuk Est Negative Normal [facility] Comment on above: Performed By: #### 3 [id number], 55800098, [id number] #### [facility] (DEFAULT) [address] [place] [address] 65654 UA Nitrite Negative Normal NEGATIVE [facility] Comment on above: Performed By: #### 3 [id number], 72566974, [id number] #### [facility] (DEFAULT) [address] [place] [address] UA pH 6.0 Normal 5-8 [facility] Comment on above: Performed By: #### 3 [id number], 36013493, [id number] #### [facility] (DEFAULT) [address] [place] [address] UA Protein >=300 Abnormal NEGATIVE [facility] Comment on above: Performed By: #### 3 [id number], 46971766, [id number] #### [facility] (DEFAULT) [address] [place] [address] UA Spec Grav >=1.030 Normal 1.001-1.[address] [place] [address] Comment on above: Performed By: #### 3 40698333, 40367414, [id number] #### [facility] (DEFAULT) [address] [place] [address] UA Urobilinogen 1.0 mg/dL Normal 0.2-1.0 [facility] Comment on above: Performed By: #### 3 52434749, 06319640, [id number] #### [facility] (DEFAULT) [address] [place] [address] Urine Source Clean Catch Normal [facility] Comment on above: Performed By: #### 3 [id number], 52926118, [id number] #### [facility] (DEFAULT) [address] [place] [address] No Panel InformationOrdered By: Farhat Castro on 04-07-2022 SARS Antigen (LFIA) [facility] COVID-19 SOFIAOrdered By: Andrea Castro on 04-06-2022 SARS-CoV+SARS-CoV-2 (COVID-19) Ag IA.rapid Ql (Resp) Negative Negative [facility] Comment on above: This is a duplicate Laura SARS Antigen (JESSICA) result to be used for statistical tracking purpose only. ANES Jeaneth 04-10-2018 ANES POST HNO ID: [id number] thor: TONO Arreolaervice: AnesthesiologyAuthor Type: AnesthesiologistType: Anesthesia [...] 10, 2018 : 8:51 AM PAGER/CONTACT #: [phone] [facility] ANES PREOPon 04-10-2018 ANES PREOP HNO ID: [id number] thor: TONO Arreolaervice: AnesthesiologyAuthor Type: AnesthesiologistType: Anesthesia [...] results:Hematocrit 48.3 04/01/2018Potassium 4.2 04/01/2018ANES DOS/PREOP NOTE:Vitals: 336124MX: 121/57Pulse: 70Resp: 18Temp: 36.4 ?C (97.5 ?F)TempSrc: [...] mg injection (XYLOCAINE) 0.1-0.2 mLINTRADERMAL PRN Rafal (Industrial Property Appraiser) Gargalianoslactated ringers infusion 5-30 mL/hr INTRAVENOUS CONTINUOUS Rafal (Industrial Property Appraiser)Gargalianos Last Rate: 30 mL/hr at 04/10/18 0707 [...] April 10, 2018 : 7:19 AM CSN: [id number] [facility] OPERATIVE NOon 04-10-2018 OPERATIVE NO HNO ID: [id number] thor: MaryAguirreice: Gynecology OncologyAuthor Type: PhysicianType: Operative ReportFiled: 04/14/2018 8:59 AMNote Text:OPERATIVE/PROCEDURE REPORTLOG ID: [id number]/PROCEDURE DATE: 04/10/2018INCISION/PROCEDURE START TIME: 7:59 AMINCISION CLOSE/PROCEDURE END TIME: 8:14 AMSURGEON(S)/PROCEDURALIST(S ) AND SAMPLE CLERK(S):Surgeon(s) and Role: * Mary Treadwell - Primary [...] was inserted into the vagina and a [place] wasused to achieve exposure to the cervix. [...] 10, 2018 : 10:44 AM PAGER/CONTACT #: [facility] PLAN OF CAREon 04-10-2018 PLAN OF CARE HNO ID: [id number] thor: Rehana Avila (Take Off Worker)Service: (none)Author Type: (none)Type: Plan of CareFiled: 04/10/2018 11:36 AMNote Text:PHARMACY BEDSIDE DELIVERY SERVICEPatient Name: Ne KeitaMRN: [id number] marked outpatient medications were Filled at: [place] and deliveredto the patient's bedside to picked [...] them or your Primary Care Provider.Rehana Avila ([employer])PAGER: [phone] 2017 11:36 AM [facility] PLAN OF CARE HNO ID: [id number] thor: Rehana Avila ([employer])Service: (none)Author Type: (none)Type: Plan of CareFiled: 04/10/2018 9:20 AMNote Text:Pharmacy Discharge Medication Service:This patient has elected to receive their discharge prescriptions throughthe [facility]. Theprescriptions are currently being processed. A follow-up note will beentered once the prescriptions have been filled and delivered to thepatient. Please contact me with any questions or updates to the patient'sdischarge medications.Rehana Avila ([employer])DCT Contact Info: [phone] [facility] PLAN OF CARE HNO ID: [id number] thor: Rehana Avila ([employer])Service: (none)Author Type: (none)Type: Plan of CareFiled: 04/10/2018 9:20 AMNote Text:RETORT PRE COOKER BEDSIDE DELIVERY SURVEY1. Patient to use [facility] Bedside Delivery - YES2. If fax, patient would like us to fax prescriptions to [facility] a. Pharmacy: b. Location: c. Phone:3. Insurance card on file - YES4. Credit card for payment - N/ANo prescriptions yet. Please page [phone] upon discharge. Normal [facility] SURGICAL PATHOLOGYon 04-10- 018 SURGICAL PATHOLOGY [facility]: [id number] Physician: MARY TREADWELL MD FINAL DIAGNOSIS1. Endocervical curettings (A) - Fragments of benign endocervical tissue.2. Cervix, cone biopsy (B) - Negative for dysplasia. - See comment. COMMENTB. An immunohistochemical stain, with appropriately staining controls, forp16 performed on block B6 was negative.Laboratory Developed Test (LDT) Disclaimer:Positive and negative controls stain appropriately. Performancecharacteristics of immunohistochemical, immunofluorescent and chromogenicin-situ hybridization tests have been determined by [facility] Pathology and Laboratory Medicine [place] ([facility]) alireza manner consistent with CLIA requirements. One or more of these tests havenot been cleared or approved by the FDA. [facility] is regulated under CLIA asqualified to perform [...] o'clock incorresponding cassettes. PADMINI/justin/04/10/18Gross examination performed at [facility], [address] [place] [address] of Report: 04/15/2018Date of Procedure: 04/10/2018Date of Receipt: 04/10/2018Submitted by: MARY TREADWELL MDLocation: FVORDiagnostic interpretation performed at [facility], [address] [place], [place] [address]. [facility] Comment on above: Performed By: #### P ATHS ####[id number] [place] [address] NURSING PROGon 04-09-2018 NURSING PROG HNO ID: [id number] thor: Yani (Rn) Rafy: (none)Author Type: Registered NurseType: Nursing Progress NoteFiled: 04/09/2018 10:02 AMNote Text:PACC Nurse Progress NoteHistory AND Physical:PACC Visit Date: 2-3-23Ejqqbppw HANDP Date: N/AED visit Date: N/AOutside HANDP Scanned Date: N/ALabs Within Last 6 Months:CBC: Date 04-01-18BMP/CMP: Date 04-01-18 WNLResults reviewed and acceptable per anesthesia guidelines for upcomingsurgeryImaging Within Last 12 Months:N/ACardiac Testing:EKG in last 12 Months: Yes: Date: 01-02-18, Comment: Confirmed SRLast Menstrual Period:LMP Date: 3-24-28Gqzpijkybmthrh >1yr: No,S/P Hysterectomy: N/ABMI Percentile (PEDS):N/ARisk Assessment:N/AAnesthesia Review:N/ANarrative:Per PACC HANDP 04-01-18:BMI 44Pre-op Considerations:Significant Anesthesia Considerations: No history of adverse event withanesthesia. Pt. has history scoliosis s/p surgery with Zuniga rodplacement in 1997; she sustained a (right) pneumothorax reported due tothe re-alignment of her spine an anticipated risk. Pt. denies any othercomplications with prior surgeries.Chart Check:eRx Pereze 2017 9:50 AM [facility] Jason 04-02-2018 BRYANTN Telephone ([facility]) ---NE KEITA ([id number]) 1985 FDate Time Provider Department04/02/18 ROXY BRANTLEY (RN) GYNML During your visit today, we recorded the following information about you:Roxy Brantley, RN, RN 04/02/2018 9:17 AM SignedCalled patient and LVM to call back for pre-op teachingRoxy Brantley RN, RN 04/04/2018 3:58 PM SignedProcedure: COLD KNIFE CONIZATION OF UTERINE CERVIXPhysician: Dr. Diazcation: [facility]: [phone] AND Time: 04/10/2018 and TIME will be [...] Celebrex MotrinAggrenox Clinoril Naprosyn(naproxen)Agrylin NSAIDS Pepto-BismolAleve Ecotrin PersantineAlka-[place] Excedrin PlaquenilAnacin Heparin PlavixAscriptin Herbals PletalAspergum Ibuprofen [...] - IV pain medication after surgery, IV DISASTER OR DAMAGE CONTROL SPECIALIST if ordered by MD,discharged home with a prescription for PO pain medication, pain managementafter surgery, side effects of pain medication (including constipation,dizziness, drowsiness, and medication interactions).DVT PROPHYLAXIS - Early ambulation, SCDs, injectable anticoagulants (heparin,lovenox, etc)RESPIRATORY - Incentive spirometer, coughing/deep breathing exercises,ambulation.RETURN TO WORK - As directed by physician, please send any [facility] papers [facility] secretary.SYMPTOMS TO NOTIFY MD - Fever, chills, nausea, vomiting, increased or severepain, heavy vaginal bleeding, foul smelling vaginal drainage, pain or swellingin extremities.URGENT SYMPTOMS - Call 911 or go to ER if any shortness of breath, difficultybreathing, or chest pain.HOW TO CONTACT PHYSICIAN - Physician's office phone number given to patient, ifafter hours patient instructed to call multi operation machine operator and ask for the doctor contact officer.Patient and family have phone number to call 24 hours/day.Patient Evaluation: Verbalizes understandingPatient and/or family express understanding of upcoming surgery and theoperative process. Questions answered.Follow Up Plan: Follow up as directed by MD.Supplemental Material Given:Pre-operative teaching packet provided to the patient:INPATIENT/OUTPATIENT printed instructions; Post-operative instruction sheet,bowel prep instruction sheetFor questions contact: office at [phone] By Daiana Brar As of Date: 04/02/2018(No Known Allergies)Date Reviewed: 04/01/2018Reviewed by: Henny ReyesCardinal Cushing Hospital) Nikko - Fully AssessedReason for Visit: [...] medical treatment*INVALID FOR* Myalgia and myositis, unspecified [[id number]] INVALID FOR* LUCAS III (cervical intraepithelial neoplasia gra*INVALID FOR* More... Morbid obesity (HCC) [E66.01] INVALID FOR* Tobacco abuse [Z72.0] INVALID FOR* Status:Closed by ROXY BRANTLEY on 04/02/18 Normal [facility] HOSPon 03-03-2018 HOSP Patient:Leonard Keitaa DMRN: [...] with medical treatment [Z91.19]Myalgia and myositis, unspecified [[id number]]LUCAS III (cervical intraepithelial neoplasia grade III) with severe dysplasia[D06.9]Morbid obesity (HCC) [E66.01]Tobacco abuse [Z72.0]Allergies:No Known AllergiesDate Verified:04/10/18Lab ValuesLab Value Units Date High LowPOTA* 4.2 mmol/L 04/01/2018 5.1 3.7HEMA* 48.3 % 04/01/2018 46.0 36.0Progress Notes (BUTTON STATION WORKER [facility]):Roxy Brantley, RN, RN 04/02/2018 9:17 AM SignedCalled patient and LVM to call back for pre-op teachingRoxy Brantley, RN, RN 04/04/2018 3:58 PM SignedProcedure: COLD KNIFE CONIZATION OF UTERINE CERVIXPhysician: Dr. Diazcation: [facility]: [phone] AND Time: 04/10/2018 and TIME will be [...] Celebrex MotrinAggrenox Clinoril Naprosyn(naproxen)Agrylin NSAIDS Pepto-BismolAleve Ecotrin PersantineAlka-[place] Excedrin PlaquenilAnacin Heparin PlavixAscriptin Herbals PletalAspergum Ibuprofen [...] - IV pain medication after surgery, IV DISASTER OR DAMAGE CONTROL SPECIALIST if ordered by MD,discharged home with a prescription for PO pain medication, pain managementafter surgery, side effects of pain medication (including constipation,dizziness, drowsiness, and medication interactions).DVT PROPHYLAXIS - Early ambulation, SCDs, injectable anticoagulants (heparin,lovenox, etc)RESPIRATORY - Incentive spirometer, coughing/deep breathing exercises,ambulation.RETURN TO WORK - As directed by physician, please send any [facility] papers tophysician's area secretary.SYMPTOMS TO NOTIFY MD - Fever, chills, nausea, vomiting, increased or severepain, heavy vaginal bleeding, foul smelling vaginal drainage, pain or swellingin extremities.URGENT SYMPTOMS - Call 911 or go to ER if any shortness of breath, difficultybreathing, or chest pain.HOW TO CONTACT PHYSICIAN - Physician's office phone number given to patient, ifafter hours patient instructed to call multi operation machine operator and ask for the doctor contact officer.Patient and family have phone number to call 24 hours/day.Patient Evaluation: Verbalizes understandingPatient and/or family express understanding of upcoming surgery and theoperative process. Questions answered.Follow Up Plan: Follow up as directed by MD.Supplemental Material Given:Pre-operative teaching packet provided to the patient:INPATIENT/OUTPATIENT printed instructions; Post-operative instruction sheet,bowel prep instruction sheetFor questions contact: office at [phone] By Roxy Brantley RN [facility] Jason 01-18-2018 CNPMindy Telephone ([facility]) ----NE KEITA ([id number]) 1985 FDate Time Provider Department01/18/18 JILL FRAIRE (CELESTINE) [facility] During your visit today, we recorded the following information about you:Jill Fraire MD 01/18/2018 9:59 PM SignedPatient had CKC on 01/09/[address] Treadwell, [facility] 20cc.She had a large amount of bleeding earlier, called the ambulance. She waspassing blood clots. She denies any pain. She had an exam in the ED and therewas no active bleeding. Her bleeding has decreased. She feels some pressure nowbut no bleeding. Has been out of the ER x 3 hours.She was seen at [facility] ED. She had labwork but was not told anything abouther lab results. She was discharged to home. Reviewed bleeding precautions withher again, she agreeds to re-present to nearest ER if bleeding is severe.Jill Fraire MDGynecologic Oncology FellowCCF Ydqdexaux Mayhugh, RN, RN 01/20/2018 1:27 PM SignedSpoke [...] medical treatment*INVALID FOR* Myalgia and myositis, unspecified [[id number]] INVALID FOR* LUCAS III (cervical intraepithelial neoplasia gra*INVALID FOR* More... Morbid obesity (HCC) [E66.01] INVALID FOR* Tobacco abuse [Z72.0] INVALID FOR* Status:Closed by JILL FRAIRE MD on 01/18/18 [facility] ANES Jeaneth 01-09-2018 ANES POST HNO ID: [id number] thor: Matthew Landaverde VeberService: AnesthesiologyAuthor Type: AnesthesiologistType: [...] 09, 2018 : 1:08 PM PAGER/CONTACT #: [phone] [facility] ANES PREOPon 01-09-2018 ANES PREOP HNO ID: [id number] thor: Matthew Burrellervice: AnesthesiologyAuthor Type: AnesthesiologistType: Anesthesia PreOpFiled: 01/09/2018 10:37 AMNote Text:REGIONAL ANESTHESIOLOGY DAY OF SURGERY NOTEPATIENT NAME: Ne VitalleninMRN: [id number]: 1985Procedure(s) (LRB):BIOPSY CERVICAL CONE COLD KNIFE (N/A)ENDOCERVICAL CURETTAGE (N/A)Surgeon(s):aMry TreadwellEstimated body mass index is 43.6 kg/(m2) [...] by mouth three timesdaily.Inpatient medications reviewed in [facility].I have interviewed and examined the patient. I have reviewed the medicalrecord and/or the pre-anesthesia evaluation, pertinent labs, and testresults.Significant changes in the patient's condition since the History andPhysical, not otherwise documented in primary service progress notes: NoThis contains updated information obtained within 48 hours ofSurgery/Procedure.SIGNATUR E: Matthew Valderrama MD PATIENT NAME: Ne VitalioDATE: January 09, 2018 : 10:36 AM PAGER/CONTACT #: [facility] BRIEF OP NOTon 01-09-2018 BRIEF OP NOT HNO ID: [id number] thor: Demetrio Kunzice: Gynecology OncologyAuthor Type: PhysicianType: Brief Op NoteFiled: 01/09/2018 12:11 PMNote Text:BRIEF OP NOTELOG ID: [id number]/Procedure Date: 01/09/2018Incision/Procedure Start Time: 11:42 AMIncision Close/Procedure End Time: 12:08 PMSurgeon(s)/Proceduralist(s ) and Supervisor [employer](s):Surgeon(s) and Role: * Mary Treadwell - Primary [...] 09, 2018 : 12:10 PM PAGER/CONTACT #: [phone] [facility] NURSING PROGon 01-09-2018 NURSING PROG HNO ID: [id number] thor: Ammy (Rn) FRANK Meyerservice: NursingAuthor Type: [...] MATERIAL PROVIDED TO PATIENT: Post op dischargeinstructions. [facility] OPERATIVE NOon 01-09-2018 OPERATIVE NO HNO ID: [id number] thor: Mary Reyezervice: Gynecology OncologyAuthor Type: PhysicianType: Operative ReportFiled: 01/09/2018 6:59 PMNote Text:OPERATIVE/PROCEDURE REPORTLOG ID: [id number]/Procedure Date: 01/09/2018Incision/Procedure Start Time: 11:42 AMIncision Close/Procedure End Time: 12:08 PMSurgeon(s)/Proceduralist(s ) and Supervisor [employer](s):Surgeon(s) and Role: * Mary Treadwell - Primary [...] 2018 : 6:58 PM PAGER/CONTACT #: Normal [facility] PLAN OF CAREon 01-09-2018 PLAN OF CARE HNO ID: [id number] thor: Alla Robles (Take Off Worker)Service: (none)Author Type: TechnicianType: Plan of CareFiled: 01/13/2018 9:36 AMNote Text:RETORT PRE COOKER BEDSIDE DELIVERY SURVEY1. Patient to use [facility] Bedside Delivery - YES2. If fax, patient would like us to fax prescriptions to [facility] a. Pharmacy: b. Location: c. Phone:3. Insurance card on file - YES4. Credit card for payment - N/A Normal [facility] SURGICAL PATHOLOGYon 018 SURGICAL PATHOLOGY [facility]: [id number] Physician: MARY TREADWELL MD FINAL DIAGNOSIS1. Cervix, [...] filtered in one cassette.WE/justin/01/09/18Gross examination performed at [place] [address] of Report: 01/15/2018Date of Procedure: 01/09/2018Date of Receipt: 01/09/2018Submitted by: MARY TREADWELL MDLocation: SORCDi[place] [address]. Normal [facility] Comment on above: Performed By: #### P ATHS ####[place] [address] NURSING PROGon 01-06-2018 NURSING PROG HNO ID: [id number] thor: Aura (Rn) Ada, FRANKervice: (none)Author Type: Registered NurseType: Nursing Progress NoteFiled: 01/06/2018 1:16 PMNote Text:01/06/18 1:[address]p.m. Notified Dr. Treadwell's office of WBC-14.07. Labs wereordered by her. MATIAS Coyne [facility] NURSING PROGon 01-02-2018 NURSING PROG HNO ID: [id number] thor: [place] (Rn) Chantel, RNService: (none)Author Type: [...] confirmed EKAris Golden RNMarch 2017 3:34 PM [facility] HOSPon 12-30-2017 HOSP Patient:Leonard Keita ndra [...] with medical treatment [Z91.19]Myalgia and myositis, unspecified [[id number]]LUCAS III (cervical intraepithelial neoplasia grade III) with severe dysplasia[D06.9]Morbid obesity (HCC) [E66.01]Tobacco abuse [Z72.0]Allergies:No Known AllergiesDate Verified:01/09/18Lab ValuesLab Value Units Date High LowPOTA* 4.0 mmol/L 01/02/2018 5.1 3.7HEMA* 46.5 % 01/02/2018 46.0 36.0Progress Notes ( PROVIDER ADULT):Rafal Lowe CNP 01/06/2018 2:21 PM SignedReceived [facility] elevated at 14KScheduled for surgery this week w call and find out if patient having any abnormal sx/signs of infection?ThanksAntoinette Cha, RN, RN 01/06/2018 3:42 PM SignedCalled pt and she states she feels fineSays she had no fever at PATDenies cough, runny nose, congestion.Denies any s/sx of urinary infectionSays she feels great, just nervous about surgeryProgress Notes ([facility] [employer]):Antoinette Cha, RN, RN 01/03/2018 1:21 PM SignedPre-op teachingProcedure: Cone bx, eccPhysician: Dr. Diazcation: [facility]: [phone] AND Time: 01/09/18MEDICAL CLEARANCE: No CARDIAC CLEARANCE: [...] Celebrex MotrinAggrenox Clinoril Naprosyn(naproxen)Agrylin NSAIDS Pepto-BismolAleve Ecotrin PersantineAlka-[place] Excedrin PlaquenilAnacin Heparin PlavixAscriptin Herbals PletalAspergum Ibuprofen [...] - IV pain medication after surgery, IV DISASTER OR DAMAGE CONTROL SPECIALIST if ordered by MD,discharged home with a prescription for PO pain medication, pain managementafter surgery, side effects of pain medication (including constipation,dizziness, drowsiness, and medication interactions).DVT PROPHYLAXIS - Early ambulation, SCDs, injectable anticoagulants (heparin,lovenox, etc)RESPIRATORY - Incentive spirometer, coughing/deep breathing exercises,ambulation.RETURN TO WORK - As directed by physician, please send any [facility].SYMPTOMS TO NOTIFY MD - Fever, chills, nausea, vomiting, increased or severepain, heavy vaginal bleeding, foul smelling vaginal drainage, pain or swellingin extremities.URGENT SYMPTOMS - Call 911 or go to ER if any shortness of breath, difficultybreathing, or chest pain.HOW TO CONTACT PHYSICIAN - Physician's office phone number given to patient, ifafter hours patient instructed to call multi operation machine operator and ask for the doctor contact officer.Patient and family have phone number to call 24 hours/day.Patient Evaluation: Verbalizes understandingPatient and/or family express understanding of upcoming surgery and theoperative process. Questions answered.Follow Up Plan: Follow up as neededSupplemental Material Given:Pre-operative teaching packet provided to the patient:INPATIENT/OUTPATIENT printed instructions; Post-operative instruction sheet,bowel prep instruction sheetFor questions contact: office at [phone] By Antoinette Cha RN [facility] HOSP Patient Update (FVPRAD) ----NE KEITA ( ) 1985 FDate Time Provider Department12/30/17 RAFAL LOWE (BRYANT) FVPRAPino During your visit today, we recorded the following information about you:Allergies As of Date: 12/30/2017(No Known Allergies)Date Reviewed: 12/29/2017Reviewed by: Mary Treadwell - Fully AssessedOrder(s):SURGICAL REQUEST - ELECTIVE [[id number]] Order #: [id number]: 1Prescriptions as of 12/30/2017 Sig: FLUOXETINE 40 [...] medical treatment*INVALID FOR* Myalgia and myositis, unspecified [[id number]] INVALID FOR* Status:Closed by RAFAL LOWE CNP on 12/30/17 [facility] Vital Signs Date Time Vital Sign Value Performing Clinician Facility 03-31-2024 03:20-0400 Diastolic blood pressure 65 mm[Hg] Services [facility] Work Phone: [facility] 03-31-2024 03:20-0400 Heart rate 62 /min Services [facility] Work Phone: [facility] 03-31-2024 03:20-0400 Respiratory rate 20 /min [facility] Work Phone: [facility] 03-31-2024 03:20-0400 SaO2% (BldA) [Mass fraction] 96 % [facility] Work Phone: [facility] 03-31-2024 03:20-0400 Systolic blood pressure 138 mm[Hg] [facility] Work Phone: [facility] 03-30-2024 23:43-0400 Body height 160.02 cm [facility] Work Phone: [facility] 03-30-2024 23:43-0400 Body temperature 97.9 [degF] [facility] Work Phone: [facility] 03-30-2024 23:43-0400 Body weight 133.6 kg [facility] Work Phone: [facility] 02-22-2024 21:57-0400 Body height 160.02 cm [facility] Work Phone: [facility] 02-22-2024 21:57-0400 Body temperature 98.7 [degF] [facility] Work Phone: [facility] 02-22-2024 21:57-0400 Body weight 132.6 kg [facility] Work Phone: [facility] 02-22-2024 21:57-0400 Diastolic blood pressure 93 mm[Hg] [facility] Work Phone: [facility] 02-22-2024 21:57-0400 Heart rate 82 /min [facility] Work Phone: [facility] 02-22-2024 21:57-0400 Respiratory rate 18 /min [facility] Work Phone: [facility] 02-22-2024 21:57-0400 SaO2% (BldA) [Mass fraction] 97 % [facility] Work Phone: [facility] 02-22-2024 21:57-0400 Systolic blood pressure 182 mm[Hg] [facility] Work Phone: [facility] 11-15-2023 19:15-0500 Diastolic blood pressure 78 mm[Hg] [facility] Work Phone: [facility] 11-15-2023 19:15-0500 Heart rate 84 /min [facility] Work Phone: [facility] 11-15-2023 19:15-0500 Respiratory rate 20 /min [facility] Work Phone: [facility] 11-15-2023 19:15-0500 SaO2% (BldA) [Mass fraction] 96 % [facility] Work Phone: [facility] 11-15-2023 19:15-0500 Systolic blood pressure 162 mm[Hg] [facility] Work Phone: [facility] 11-15-2023 16:51-0500 Body height 160.02 cm [facility] Work Phone: [facility] 11-15-2023 16:51-0500 Body temperature 97.7 [degF] [facility] Work Phone: [facility] 11-15-2023 16:51-0500 Body weight 128.9 kg [facility] Work Phone: [facility] 08-04-2023 18:16-0400 Body height 160.02 cm [facility] Work Phone: [facility] 08-04-2023 18:16-0400 Body temperature 98.1 [degF] [facility] Work Phone: [facility] 08-04-2023 18:16-0400 Body weight 125.4 kg [facility] Work Phone: [facility] 08-04-2023 18:16-0400 Diastolic blood pressure 84 mm[Hg] [facility] Work Phone: [facility] 08-04-2023 18:16-0400 Heart rate 81 /min [facility] Work Phone: [facility] 08-04-2023 18:16-0400 Respiratory rate 18 /min [facility] Work Phone: [facility] 08-04-2023 18:16-0400 SaO2% (BldA) [Mass fraction] 98 % [facility] Work Phone: [facility] 08-04-2023 18:16-0400 Systolic blood pressure 143 mm[Hg] [facility] Work Phone: [facility] 05-12-2023 18:32-0400 Heart rate 69 /min [facility] Work Phone: [facility] 05-12-2023 16:18-0400 Body height 160.02 cm [facility] Work Phone: [facility] 05-12-2023 16:18-0400 Body temperature 98.5 [degF] [facility] Work Phone: [facility] 05-12-2023 16:18-0400 Body weight 124.6 kg [facility] Work Phone: [facility] 05-12-2023 16:18-0400 Diastolic blood pressure 90 mm[Hg] [facility] Work Phone: [facility] 05-12-2023 16:18-0400 Respiratory rate 18 /min [facility] Work Phone: [facility] 05-12-2023 16:18-0400 SaO2% (BldA) [Mass fraction] 97 % [facility] Work Phone: [facility] 05-12-2023 16:18-0400 Systolic blood pressure 140 mm[Hg] [facility] Work Phone: [facility] 03-22-2023 10:30-0400 Body height 160.02 cm Bandar Hart Other [employer] Other 03-22-2023 10:30-0400 Body mass index (BMI) [Ratio] 47.82 kg/m2 Bandar Hart Other [employer] Other 03-22-2023 10:30-0400 Body weight 122.47 kg Bandar Hart Other [employer] Other 03-11-2023 15:30-0400 Body height 160.02 cm Frank Allengilberto Other [employer] Other 03-11-2023 15:30-0400 Body mass index (BMI) [Ratio] 47.82 kg/m2 Frank Tiffanyban Other [employer] Other 03-11-2023 15:30-0400 Body weight 122.47 kg Frank Alba Other [employer] Other 03-11-2023 15:30-0400 Diastolic blood pressure 81 mm[Hg] Kamkim Allenban Other [employer] Other 03-11-2023 15:30-0400 SaO2% (BldA) [Mass fraction] 95 % Kamkim Allenban Other [employer] Other 03-11-2023 15:30-0400 Systolic blood pressure 127 mm[Hg] Kamal Chaban Other [employer] Other 03-06-2023 01:13-0400 Diastolic blood pressure 66 mm[Hg] Services [employer] Phone: [facility] 03-06-2023 01:13-0400 Heart rate 72 /min Services [facility] Work Phone: [facility] 03-06-2023 01:13-0400 Respiratory rate 18 /min [facility] Work Phone: [facility] 03-06-2023 01:13-0400 SaO2% (BldA) [Mass fraction] 95 % [facility] Work Phone: [facility] 03-06-2023 01:13-0400 Systolic blood pressure 138 mm[Hg] [facility] Work Phone: [facility] 03-05-2023 22:55-0400 Body height 160.02 cm [facility] Work Phone: [facility] 03-05-2023 22:55-0400 Body temperature 98.1 [degF] [facility] Work Phone: [facility] 03-05-2023 22:55-0400 Body weight 124.2 kg [facility] Work Phone: [facility] 02-05-2023 12:36-0400 Diastolic blood pressure 88 mm[Hg] [facility] Work Phone: [facility] 02-05-2023 12:36-0400 Heart rate 80 /min [facility] Work Phone: [facility] 02-05-2023 12:36-0400 Respiratory rate 18 /min [facility] Work Phone: [facility] 02-05-2023 12:36-0400 SaO2% (BldA) [Mass fraction] 100 % [facility] Work Phone: [facility] 02-05-2023 12:36-0400 Systolic blood pressure 138 mm[Hg] [facility] Work Phone: [facility] 02-05-2023 10:42-0400 Body temperature 97.1 [degF] [facility] Work Phone: [facility] 02-05-2023 10:40-0400 Body height 160.02 cm [facility] Work Phone: [facility] 02-05-2023 10:40-0400 Body weight 122 kg [facility] Work Phone: [facility] 01-15-2023 02:26-0400 Diastolic blood pressure 59 mm[Hg] [facility] Work Phone: [facility] 01-15-2023 02:26-0400 Heart rate 69 /min [facility] Work Phone: [facility] 01-15-2023 02:26-0400 Respiratory rate 18 /min [facility] Work Phone: [facility] 01-15-2023 02:26-0400 SaO2% (BldA) [Mass fraction] 100 % [facility] Work Phone: [facility] 01-15-2023 02:26-0400 Systolic blood pressure 122 mm[Hg] [facility] Work Phone: [facility] 01-14-2023 21:31-0400 Body height 160.02 cm [facility] Work Phone: [facility] 01-14-2023 21:31-0400 Body temperature 98 [degF] [facility] Work Phone: [facility] 01-14-2023 21:31-0400 Body weight 122.6 kg [facility] Work Phone: [facility] 01-10-2023 22:30-0400 Diastolic blood pressure 67 mm[Hg] [facility] Work Phone: [facility] 01-10-2023 22:30-0400 Heart rate 75 /min [facility] Work Phone: [facility] 01-10-2023 22:30-0400 Respiratory rate 12 /min [facility] Work Phone: [facility] 01-10-2023 22:30-0400 SaO2% (BldA) [Mass fraction] 97 % [facility] Work Phone: [facility] 01-10-2023 22:30-0400 Systolic blood pressure 144 mm[Hg] [facility] Work Phone: [facility] 01-10-2023 20:11-0400 Body height 160.02 cm [facility] Work Phone: [facility] 01-10-2023 20:11-0400 Body temperature 98 [degF] [facility] Work Phone: [facility] 01-10-2023 20:11-0400 Body weight 125 kg [facility] Work Phone: [facility] 01-10-2023 14:15-0400 Diastolic blood pressure 80 mm[Hg] [facility] Work Phone: [facility] 01-10-2023 14:15-0400 Heart rate 80 /min [facility] Work Phone: [facility] 01-10-2023 14:15-0400 Systolic blood pressure 136 mm[Hg] [facility] Work Phone: [facility] 01-10-2023 13:38-0400 Body height 160.02 cm [facility] Work Phone: [facility] 01-10-2023 13:38-0400 Body temperature 98.1 [degF] [facility] Work Phone: [facility] 01-10-2023 13:38-0400 Body weight 123.75 kg [facility] Work Phone: [facility] 01-10-2023 13:38-0400 Respiratory rate 20 /min [facility] Work Phone: [facility] 01-10-2023 13:38-0400 SaO2% (BldA) [Mass fraction] 96 % [facility] Work Phone: [facility] 12-28-2022 00:21-0500 Diastolic blood pressure 64 mm[Hg] [facility] Work Phone: [facility] 12-28-2022 00:21-0500 Heart rate 87 /min [facility] Work Phone: [facility] 12-28-2022 00:21-0500 Respiratory rate 18 /min [facility] Work Phone: [facility] 12-28-2022 00:21-0500 SaO2% (BldA) [Mass fraction] 96 % [facility] Work Phone: [facility] 12-28-2022 00:21-0500 Systolic blood pressure 141 mm[Hg] [facility] Work Phone: [facility] 12-27-2022 21:35-0500 Body temperature 97.9 [degF] [facility] Work Phone: [facility] 12-27-2022 21:34-0500 Body height 160.02 cm [facility] Work Phone: [facility] 12-27-2022 21:34-0500 Body weight 115 kg [facility] Work Phone: [facility] 12-26-2022 01:08-0500 Body height 160.02 cm [facility] Work Phone: [facility] 12-26-2022 01:08-0500 Body temperature 98.1 [degF] [facility] Work Phone: [facility] 12-26-2022 01:08-0500 Body weight 123.1 kg [facility] Work Phone: [facility] 12-26-2022 01:08-0500 Diastolic blood pressure 80 mm[Hg] [facility] Work Phone: [facility] 12-26-2022 01:08-0500 Heart rate 82 /min [facility] Work Phone: [facility] 12-26-2022 01:08-0500 Respiratory rate 20 /min [facility] Work Phone: [facility] 12-26-2022 01:08-0500 SaO2% (BldA) [Mass fraction] 98 % [facility] Work Phone: [facility] 12-26-2022 01:08-0500 Systolic blood pressure 165 mm[Hg] [facility] Work Phone: [facility] 12-24-2022 14:01-0500 Body height 3718.56 cm [facility] Work Phone: [facility] 12-24-2022 14:01-0500 Body temperature 98.2 [degF] [facility] Work Phone: [facility] 12-24-2022 14:01-0500 Body weight 53 kg [facility] Work Phone: [facility] 12-24-2022 14:01-0500 Diastolic blood pressure 90 mm[Hg] [facility] Work Phone: [facility] 12-24-2022 14:01-0500 Heart rate 82 /min [facility] Work Phone: [facility] 12-24-2022 14:01-0500 Respiratory rate 18 /min [facility] Work Phone: [facility] 12-24-2022 14:01-0500 SaO2% (BldA) [Mass fraction] 94 % [facility] Work Phone: [facility] 12-24-2022 14:01-0500 Systolic blood pressure 155 mm[Hg] [facility] Work Phone: [facility] 12-06-2022 00:33-0500 Diastolic blood pressure 78 mm[Hg] [facility] Work Phone: [facility] 12-06-2022 00:33-0500 Heart rate 88 /min [facility] Work Phone: [facility] 12-06-2022 00:33-0500 Respiratory rate 19 /min [facility] Work Phone: [facility] 12-06-2022 00:33-0500 SaO2% (BldA) [Mass fraction] 98 % [facility] Work Phone: [facility] 12-06-2022 00:33-0500 Systolic blood pressure 125 mm[Hg] [facility] Work Phone: [facility] 12-05-2022 22:34-0500 Body height 160.02 cm [facility] Work Phone: [facility] 12-05-2022 22:34-0500 Body temperature 97.7 [degF] [facility] Work Phone: [facility] 12-05-2022 22:34-0500 Body weight 123 kg [facility] Work Phone: [facility] 09-24-2022 09:35-0500 Body height 160.02 cm [facility] Work Phone: [facility] 09-24-2022 09:35-0500 Body temperature 98.2 [degF] [facility] Work Phone: [facility] 09-24-2022 09:35-0500 Body weight 119.2 kg [facility] Work Phone: [facility] 09-24-2022 09:35-0500 Diastolic blood pressure 80 mm[Hg] [facility] Work Phone: [facility] 09-24-2022 09:35-0500 Heart rate 73 /min [facility] Work Phone: [facility] 09-24-2022 09:35-0500 Respiratory rate 16 /min [facility] Work Phone: [facility] 09-24-2022 09:35-0500 SaO2% (BldA) [Mass fraction] 97 % [facility] Work Phone: [facility] 09-24-2022 09:35-0500 Systolic blood pressure 144 mm[Hg] [facility] Work Phone: [facility] 09-13-2022 00:51-0500 Body height 160.02 cm [facility] Work Phone: [facility] 09-13-2022 00:51-0500 Body temperature 97.7 [degF] [facility] Work Phone: [facility] 09-13-2022 00:51-0500 Body weight 120.5 kg [facility] Work Phone: [facility] 09-13-2022 00:51-0500 Diastolic blood pressure 73 mm[Hg] [facility] Work Phone: [facility] 09-13-2022 00:51-0500 Heart rate 82 /min [facility] Work Phone: [facility] 09-13-2022 00:51-0500 Respiratory rate 20 /min [facility] Work Phone: [facility] 09-13-2022 00:51-0500 SaO2% (BldA) [Mass fraction] 99 % [facility] Work Phone: [facility] 09-13-2022 00:51-0500 Systolic blood pressure 145 mm[Hg] [facility] Work Phone: [facility] 09-07-2022 21:37-0500 Diastolic blood pressure 88 mm[Hg] [facility] Work Phone: [facility] 09-07-2022 21:37-0500 Heart rate 81 /min [facility] Work Phone: [facility] 09-07-2022 21:37-0500 Respiratory rate 17 /min [facility] Work Phone: [facility] 09-07-2022 21:37-0500 SaO2% (BldA) [Mass fraction] 97 % [facility] Work Phone: [facility] 09-07-2022 21:37-0500 Systolic blood pressure 168 mm[Hg] [facility] Work Phone: [facility] 09-07-2022 18:34-0500 Body height 160.02 cm [facility] Work Phone: [facility] 09-07-2022 18:34-0500 Body weight 118.6 kg [facility] Work Phone: [facility] 08-04-2022 22:25-0400 Body height 160.02 cm [facility] Work Phone: [facility] 08-04-2022 22:25-0400 Body temperature 98.2 [degF] [facility] Work Phone: [facility] 08-04-2022 22:25-0400 Body weight 118.55 kg [facility] Work Phone: [facility] 08-04-2022 22:25-0400 Diastolic blood pressure 58 mm[Hg] [facility] Work Phone: [facility] 08-04-2022 22:25-0400 Heart rate 74 /min [facility] Work Phone: [facility] 08-04-2022 22:25-0400 Respiratory rate 18 /min [facility] Work Phone: [facility] 08-04-2022 22:25-0400 SaO2% (BldA) [Mass fraction] 98 % [facility] Work Phone: [facility] 08-04-2022 22:25-0400 Systolic blood pressure 116 mm[Hg] [facility] Work Phone: [facility] 07-14-2022 23:00-0400 Diastolic blood pressure 66 mm[Hg] DO Stephanie Visci Work Phone: [facility] 07-14-2022 23:00-0400 Heart rate 87 /min DO Stephanie Visci Work Phone: [facility] 07-14-2022 23:00-0400 Respiratory rate 17 /min DO Stephanie Visci Work Phone: [facility] 07-14-2022 23:00-0400 SaO2% (BldA) [Mass fraction] 96 % DO Stephanie Visci Work Phone: [facility] 07-14-2022 23:00-0400 Systolic blood pressure 134 mm[Hg] DO Stephanie Visci Work Phone: [facility] 07-14-2022 22:00-0400 Body height 160.02 cm DO Stephanie Visci Work Phone: [facility] 07-14-2022 22:00-0400 Body temperature 98.8 [degF] DO Stephanie Visci Work Phone: [facility] 07-14-2022 22:00-0400 Body weight 119.7 kg DO Stephanie Visci Work Phone: [facility] 07-09-2022 14:55-0400 Diastolic blood pressure 66 mm[Hg] DO Stephanie Visci Work Phone: [facility] 07-09-2022 14:55-0400 Heart rate 89 /min DO Stephanie Visci Work Phone: [facility] 07-09-2022 14:55-0400 Respiratory rate 18 /min DO Stephanie Visci Work Phone: [facility] 07-09-2022 14:55-0400 SaO2% (BldA) [Mass fraction] 93 % DO Stephanie Visci Work Phone: [facility] 07-09-2022 14:55-0400 Systolic blood pressure 131 mm[Hg] DO Stephanie Visci Work Phone: [facility] 07-09-2022 14:35-0400 Inhaled oxygen flow rate 2 L/min DO Stephanie Visci Work Phone: [facility] 07-09-2022 10:10-0400 Body temperature 97.8 [degF] DO Stephanie Visci Work Phone: [facility] 07-09-2022 07:12-0400 Body height 160.02 cm DO Stephanie Visci Work Phone: [facility] 07-09-2022 07:12-0400 Body mass index (BMI) [Ratio] 46 kg/m2 DO Stephanie Visci Work Phone: [facility] 07-09-2022 07:12-0400 Body weight 118 kg DO Stephanie Visci Work Phone: [facility] 06-05-2022 00:30-0400 Diastolic blood pressure 63 mm[Hg] DO Stephanie Visci Work Phone: [facility] 06-05-2022 00:30-0400 Heart rate 60 /min DO Stephanie Visci Work Phone: [facility] 06-05-2022 00:30-0400 Respiratory rate 14 /min DO Stephanie Visci Work Phone: [facility] 06-05-2022 00:30-0400 SaO2% (BldA) [Mass fraction] 97 % DO Stephanie Visci Work Phone: [facility] 06-05-2022 00:30-0400 Systolic blood pressure 135 mm[Hg] DO Stephanie Visci Work Phone: [facility] 06-04-2022 21:24-0400 Body height 160.02 cm DO Stephanie Visci Work Phone: [facility] 06-04-2022 21:24-0400 Body temperature 98 [degF] DO Stephanie Visci Work Phone: [facility] 06-04-2022 21:24-0400 Body weight 118.05 kg DO Stephanie Visci Work Phone: [facility] 05-31-2022 13:59-0400 Diastolic blood pressure 79 mm[Hg] DO Stephanie Visci Work Phone: [facility] 05-31-2022 13:59-0400 Heart rate 69 /min DO Stephanie Visci Work Phone: [facility] 05-31-2022 13:59-0400 Respiratory rate 18 /min DO Stephanie Visci Work Phone: [facility] 05-31-2022 13:59-0400 SaO2% (BldA) [Mass fraction] 98 % DO Stephanie Visci Work Phone: [facility] 05-31-2022 13:59-0400 Systolic blood pressure 146 mm[Hg] DO Stephanie Visci Work Phone: [facility] 05-31-2022 11:46-0400 Body height 160.02 cm DO Stephanie Visci Work Phone: [facility] 05-31-2022 11:46-0400 Body temperature 98.5 [degF] DO Stephanie Visci Work Phone: [facility] 05-31-2022 11:46-0400 Body weight 122.46 kg DO Stephanie Visci Work Phone: [facility] 05-30-2022 12:00-0400 Diastolic blood pressure 79 mm[Hg] DO Stephanie Visci Work Phone: [facility] 05-30-2022 12:00-0400 Heart rate 74 /min DO Stephanie Visci Work Phone: [facility] 05-30-2022 12:00-0400 Respiratory rate 16 /min DO Stephanie Visci Work Phone: [facility] 05-30-2022 12:00-0400 SaO2% (BldA) [Mass fraction] 97 % DO Stephanie Visci Work Phone: [facility] 05-30-2022 12:00-0400 Systolic blood pressure 136 mm[Hg] DO Stephanie Visci Work Phone: [facility] 05-30-2022 08:00-0400 Body temperature 98.6 [degF] DO Stephanie Visci Work Phone: [facility] 05-29-2022 20:10-0400 Body height 160.02 cm DO Stephanie Visci Work Phone: [facility] 05-29-2022 20:10-0400 Body weight 121.1 kg DO Stephanie Visci Work Phone: [facility] 04-06-2022 22:33-0400 Body height 160.02 cm DO Stephanie Visci Work Phone: [facility] 04-06-2022 22:33-0400 Body mass index (BMI) [Ratio] 46.5 kg/m2 DO Stephanie Visci Work Phone: [facility] 04-06-2022 22:33-0400 Body temperature 98.4 [degF] DO Stephanie Visci Work Phone: [facility] 04-06-2022 22:33-0400 Body weight 119.3 kg DO Stephanie Visci Work Phone: [facility] 04-06-2022 22:33-0400 Diastolic blood pressure 87 mm[Hg] DO Stephanie Visci Work Phone: [facility] 04-06-2022 22:33-0400 Heart rate 82 /min DO Stephanie Visci Work Phone: [facility] 04-06-2022 22:33-0400 Respiratory rate 18 /min DO Stephanie Visci Work Phone: [facility] 04-06-2022 22:33-0400 SaO2% (BldA) [Mass fraction] 97 % DO Stephanie Visci Work Phone: [facility] 04-06-2022 22:33-0400 Systolic blood pressure 168 mm[Hg] DO Stephanie Visci Work Phone: [facility] Encounters Encounter Date Encounter Type Care Provider Facility Start: 05-07-2024 End: 05-07-2024 ambulatory STEPHANIE MCMAHAN Not Available Start: 03-31-2024 End: 03-31-2024 ambulatory FIONA RODRÍGUEZ Not Available Start: 03-30-2024 End: 03-31-2024 Emergency department patient visit Services [facility] Work Phone: [facility] Work Phone: Start: 02-22-2024 End: 02-22-2024 [...] 11-18-2023 End: 11-18-2023 ambulatory Radha Lagunas Other [employer] Other Start: 11-18-2023 Telephone encounter Radha Lagunas [facility] Start: 11-15-2023 End: 11-15-2023 Emergency department patient [...] 04-11-2023 End: 04-11-2023 ambulatory Bandar Hart Other [employer] Other Start: 04-11-2023 Telephone encounter Bandar [facility] Start: 03-22-2023 End: 03-22-2023 ambulatory Bandar Hart Other [employer] Other Start: 03-22-2023 Office outpatient ne w 45 minutes Bandar Hart [facility] Start: 03-11-2023 End: 03-11-2023 Patient encounter procedure [facility] Work Phone: [facility] Work Phone: Start: 03-11-2023 End: 03-11-2023 ambulatory [facility] Work Phone: [facility] Work Phone: Start: 03-11-2023 Office outpatient ne w 30 minutes Frank Tiffanygilberto [facility] Start: 03-07-2023 End: 03-08-2023 ambulatory ROXY JACOBSEN Facility:[facility] Start: 03-07-2023 End: 03-07-2023 Patient encounter procedure ROXY JACOBSEN [facility] Start: 03-05-2023 End: 03-06-2023 Emergency department [...] 02-05-2023 Emergency department patient visit Services [employer] Work Phone: [facility] Work Phone: Start: 01-14-2023 End: 01-15-2023 Emergency department patient visit [facility] Work Phone: [facility] Work Phone: Start: 01-14-2023 ambulatory ROXY DELMAR Facility : [place] Start: 01-10-2023 End: 01-10-2023 ambulatory [facility] Work Phone: [facility] Work Phone: Start: 01-10-2023 End: 01-10-2023 Patient encounter procedure [facility] Work Phone: [facility] [place] Work Phone: Start: 01-10-2023 End: 01-11-2023 Emergency department patient visit [facility] Work Phone: [facility] Work Phone: Start: 01-10-2023 End: 01-10-2023 Emergency department patient visit [facility] Work Phone: [facility] Work Phone: Start: 12-27-2022 End: 12-28-2022 Emergency department patient visit [facility] Work Phone: [facility] Work Phone: Start: 12-26-2022 End: 12-26-2022 Emergency department patient visit [facility] Work Phone: [facility] Work Phone: Start: 12-24-2022 End: 12-24-2022 Emergency department patient visit [facility] Work Phone: [facility] Work Phone: Start: 12-05-2022 End: 12-06-2022 Emergency department patient visit [facility] Work Phone: [facility] Work Phone: Start: 11-08-2022 End: 11-08-2022 ambulatory ELVIS BAZZI Facility: Start: 09-24-2022 End: 09-24-2022 ambulatory ANNETTE VALLADARES II Facility:[facility] Start: 09-24-2022 End: 09-24-2022 Emergency department patient visit Services [employer] Work Phone: [facility] Work Phone: Start: 09-13-2022 End: 09-13-2022 Emergency department patient visit Services [employer] Work Phone: [facility] Start: 09-07-2022 End: 09-07-2022 Emergency department patient visit Services [employer] [facility] Work Phone: [facility] Start: 08-04-2022 End: 08-05-2022 Emergency department patient visit Services [employer] Work Phone: [facility] Start: 07-14-2022 End: 07-15-2022 Emergency department patient visit DO Stephanie Visci Work Phone: [facility] Start: 07-09-2022 End: 07-09-2022 Admission to same day surgery center DO Stephanie Visci Work Phone: [facility] [place] Start: 07-05-2022 End: 07-05-2022 Patient encounter procedure DO Stephanie Visci Work Phone: [facility] [place] Start: 06-25-2022 End: 06-25-2022 Departed Referred DO Stephanie Visci Work Phone: [facility] Start: 06-25-2022 End: 06-25-2022 Patient encounter procedure DO Stephanie Visci Work Phone: [facility] Start: 06-04-2022 End: 06-05-2022 Emergency department patient visit DO Stephanie Visci Work Phone: [facility] Start: 05-31-2022 End: 05-31-2022 Emergency department patient visit DO Stephanie Visci Work Phone: [facility] Start: 05-29-2022 End: 05-30-2022 Evaluation and management of inpatient DO Stephanie Mcmahan Work Phone: [facility] Start: 05-29-2022 ambulatory Shellie Boone RN [employer]U [employer] OPER[employer] Comment on above: Ovarian Cyst; Vagina l Bleeding Start: 04-06-2022 End: 04-07-2022 Emergency department patient visit DO Stephanie Mcmahan Work Phone: [facility] Start: 04-10-2018 End: 04-10-2018 Ambulatory [facility] Start: 01-09-2018 End: 01-09-2018 [facility] Start: 05-27-2004 Evaluation and management of inpatient DO Stephanie Mcmahan Work Phone: [facility] Procedures Date Procedure Procedure Detail Performing Clinician Start: 03-31-2024 SARS-CoV-2, Influenz a & RSV (PCR) Services [employer] [facility] [employer] Phone: Start: 11-15-2023 CT of abdomen and pe lvis without contrast Services [employer] Phone: Start: 08-04-2023 SARS-CoV-2, Influenz a & RSV (PCR) Services [employer] Phone: Start: 05-12-2023 Plain chest X-ray [facility] [place] [employer] [facility] [employer] Phone: Start: 05-12-2023 SARS Antigen (LFIA) Ser vices [employer] [facility] [employer] Phone: Start: 03-05-2023 X-ray of lumbar spin e, two or three views Services [employer] Phone: Start: 03-04-2023 Plain chest X-ray Servi [facility] [place] [employer] [facility] [employer] Phone: Start: 02-05-2023 SARS-CoV-2, Influenz a & RSV (PCR) Services [employer] Phone: Start: 02-05-2023 Plain chest X-ray [employer] Phone: Start: 01-14-2023 CT of head without contrast Services [employer] Phone: Start: 01-14-2023 Plain chest X-ray [employer] Phone: Start: 01-10-2023 Plain chest X-ray Servi [facility] [place] [employer] Phone: Start: 12-27-2022 CT angiography of thorax Services [employer] Phone: Start: 12-27-2022 Plain chest X-ray Servi [facility] [place] [employer] Phone: Start: 12-27-2022 SARS-CoV-2, Influenz a & RSV (PCR) Services [employer] Phone: Start: 12-05-2022 Computed tomography of abdomen and pelvis with contrast Services [employer] Phone: Start: 09-07-2022 Plain chest X-ray Servi [facility] [place] [employer] Phone: Start: 08-04-2022 Plain X-ray of left elbow Services [employer] Phone: Start: 08-04-2022 X-ray of lumbar spin e, two or three views [facility] [employer] Phone: Start: 07-14-2022 X-ray of cervical spine [facility] [employer] Phone: Start: 07-09-2022 Laparoscopic-assiste d vaginal hysterectomy Services [employer] Phone: Start: 07-09-2022 OR V-NOTES, LAVH (No t Applicable) DO Stephanie [employer] Work Phone: Cone biopsy ROXY JACOBSEN Hysterectomy ROXY JACOBSEN Ligation of fallopian tube J WASHINGTON JACOBSEN SARS Antigen (LFIA) DO Joceline rd Visci Work Phone: SARS Antigen (LFIA) DO Joceline rd [employer] Work Phone: Plan of Treatment Date Care Activity Detail Author Start: 09-07-2025 HPV TESTING HPV TESTING [facility] Start: 09-07-2025 PAP TESTING PAP TESTING [facility] Start: 03-31-2024 [facility] Start: 03-31-2024 Plain chest X-ray XR chest 1V [facility] Start: 03-31-2024 XR Chest Single view [facility] Start: 08-04-2023 Plain chest X-ray XR chest 2V* [facility] Start: 08-04-2023 XR Chest 2 Views [facility] Start: 03-06-2023 [facility] Start: 03-05-2023 X-ray of lumbar spin e, two or three views XR lumbar spine 2-3V* [facility] Start: 03-05-2023 XR Lumbar spine 2 or 3 Views [facility] Start: 01-14-2023 CT of head without contrast CT head/brain wo con [facility] Start: 01-14-2023 CT Unspecified body region WO contrast [facility] Start: 01-14-2023 Plain chest X-ray XR chest 2V* [facility] Start: 01-14-2023 XR Chest 2 Views [facility] Start: 01-10-2023 Plain chest X-ray XR chest 1V [facility] Start: 01-10-2023 XR Chest Single view [facility] Start: 12-27-2022 CT angiography of thorax CT an cassie chest PE protocol [facility] Start: 12-27-2022 CT Chest [facility] Start: 12-27-2022 Plain chest X-ray XR chest 1V [facility] Start: 12-27-2022 XR Chest Single view [facility] Start: 12-05-2022 Computed tomography of abdomen and pelvis with contrast CT abdomen pelvis w con [facility] Start: 12-05-2022 CT Abdomen and Pelvi s W contrast IV [facility] Start: 08-04-2022 Plain X-ray of left elbow XR elbow L T min 3V* [facility] Start: 08-04-2022 X-ray of lumbar spin e, two or three views XR lumbar spine 2-3V* [facility] Start: 08-04-2022 XR Elbow - left GE 3 Views [facility] Start: 08-04-2022 XR Lumbar spine 2 or 3 Views [facility] Start: 07-14-2022 X-ray of cervical spine XR cervical spine 5V* [facility] Start: 07-14-2022 XR Cervical spine [address] [facility] Work Phone: Start: 07-09-2022 Hospital admission [facility] Start: 07-09-2022 [facility] Start: 06-28-2022 Influenza vaccination INFLUENZA (#1) [facility] Start: 06-25-2022 End: 06-25-2022 Patient encounter procedure Departed Clinical [id number] Start: 06-04-2022 End: 06-05-2022 Emergency department patient visit Departed Emergency [facility] Start: 05-30-2022 [facility] Start: 2003 Urine microalbumin profile DTAP,TDAP,TD (1 - Tdap) [facility] Start: 2002 HEPATITIS C [facility] Start: 2002 HIV SCREENING HIV SCREENING [facility] Start: 1996 Adult depression screening assessment DEPRESSION SCREENING [facility] Start: 1984 COVID-19 VACCINE (#1) COVID-19 VACCI NE (#1) [facility] Bilirubin measuremen t, urine [facility] Color of Urine [facility] Detection of hemoglobin [facility] Glucose [Mass/volume ] in Urine by Test strip [facility] Hepatitis A virus antibody, IgM type [facility] Hepatitis B core ant ibody measurement, IgM type [facility] Hepatitis B virus boyle rface Ag [Presence] in Serum or Plasma by Immunoassay [facility] Hepatitis C virus Ig G Ab [Presence] in Serum or Plasma by Immunoassay [facility] Hepatitis C virus RN A [log units/volume] (viral load) in Serum or Plasma by JUDIT with probe detection [facility] Hepatitis C virus RN A [Units/volume] (viral load) in Serum or Plasma by JUDIT with probe detection [facility] Measurement of keton es in urine using dipstick [facility] Patient Education [facility] Work Phone: Patient referral [facility] Work Phone: Protein measurement, urine [facility] Trichomonas vaginali s [Presence] in Unspecified specimen by Wet preparation [facility] Urinalysis, specific gravity measurement [facility] Urine dipstick for nitrite [facility] Urine dipstick for specific gravity [facility] Urine pH test [facility] Urobilinogen concentration, test strip measurement [facility] Payers Date Payer Category Payer Self-pay [id number] 2008 Medicaid [employer] [facility] MEDICAID [id number] 2008-Present [phone] [address] [place] [address] Medicaid [id number] 1984 Unknown [id number]. 593 1984 Unknown [id number]. 593 1984 Unknown [id number]. 727 1984 Unknown [id number]. 727 1984 Unknown [id number] [id number]. 1259 1984 Unknown [id number]. 1259 1984 Unknown [id number]. 1259 1959 Medicaid [id number] 1960 Medicaid [id number] Private Health Insurance [facility] [id number] Unknown Regular Auto/Liability [id number] Unknown [id number]. [id number] Unknown [id number]. 531 Unknown [id number]. 531 Unknown [id number]. 531 Unknown [id number]. 531 Unknown [id number]. 531 Unknown [id number]. 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 (finding) [facility] Start: 1985 Sex Assigned At Not on file [facility] Start: 06-25-2022 End: 03-31-2024 Tobacco smoking status NHIS Smoker (finding) [facility] Start: 1985 Sex Assigned At Female [facility] Start: 08-04-2022 Tobacco smoking status LAIS Ex-smoker (finding) [facility] Start: 10-28-1996 History of tobacco use [facility] Work Phone: Start: 02-28-2023 Tobacco smoking status Heavy tobacco smoker (finding) [facility] Tobacco smoking status Never [facility] Sex Assigned At Sex [facility] NEGATED: Highlighted row [facility] Goals Date Patient Goal Desired Activity /State Functional Status Date Assessment Result Facility 07-09-2022 Functional status Patient at Baseline [facility] Work Phone: Mental Status Date Assessment Result Facility 07-09-2022 Cognitive function Cognitive Sta tus Patient at Baseline [facility] Work Phone: Clinical Notes 05-29-2022 to 04-11-2023 Note Date & Type Note Facility 04-11-2023 Evaluation note Encounter Date Diagnosis Assessment Notes Mar, Patellofemoral pain syndrome of left knee (ICD-10 - M22.2X2) [employer] Other 05-26-2023 Evaluation note* Encounter Date Diagnosis [...] in office today. Prior medical notes from [facility] and history have been reviewed. At this [...] We discussed that this may be a technician terminal and repeater problem. Prescription for Medrol dose pack provided [...] as documented in the electronic medical record. [employer] Other 05-15-2023 Evaluation note* Encounter Date Diagnosis [...] study and will continue to follow afterwards [employer] Other 03-20-2023 Hospital Discharge instructions Follow Up Care 01/14/2023 12:40:33 With:ROXY JACOBSEN PA-C, URL Address: [address] [place] [address]. 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 [facility] and I was called. I asked if she was a smokerand they said no when I instructed them to put her on a control pill 3 times daily, Motrin and ferrous sulfate. She left the ER and says she could notfill her meds so she continued with having came to [facility] ER. The emergency room doctor called and [...] is not having any significant COVID-related symptoms. 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 stated this is [facility]. Pt is passing large clots and the blood is pouring out. He is frustrated because they want to send her home on hormones. 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 Pt just advise him that she did speak the Dr and they are going to admit her. documented in this encounterMadison Health08-02-2022 NoteEducation Materials Obstetrics and Gynecology Abnormal Uterine [...] these instructions at home: Medicines ? Take [id number] and prescription medicines only as told by [...] your pee (urine) pale yellow. ? Take [id number] or prescription medicines. ? Eat foods that [...] provider. Document Revised: 08/16/2020 Document Reviewed: 08/16/2020 [employer] Patient Education ? 2020 [employer].[facility] Plan note No data available for this section [facility] Evaluation note* Diagnosis Onset Date Resolution Status Adenomyosis acute Chronic pelvic pain in female acute COVID-19 acute DUB (dysfunctional uterine bleeding) acute Menometrorrhagia acute [facility] Work Phone: Evaluation noteNo assessment information available [facility] Work Phone: Evaluation noteNo InformationNort Jike Xueyuan Other Hisbidg general Narrative - Reported* Type Description Date [...] 2003 Hospitalization History 2005 Hospitalization History 2009 [employer] Other Hisbtir general Narrative - Reported* Type Description Date Medical History 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 Medical History [...] 2003 Hospitalization History 2005 Hospitalization History 2009 [employer] Other Hospital Discharge instructions Additional Instructions Follow-up with your primary care doctor Return to ED if develop worsening symptoms or concernsHigh[facility] Work Phone: Hospital Discharge instructions Additional Instructions Follow up with your primary care doctor Return to the ED if you develop worsening symptoms or concernsHigh[facility] Work Phone: Hospital Discharge instructions Additional Instructions Return for worsening symptoms Follow-up [facility] doctorHigh[facility] Work Phone: Hospital Discharge instructions Additional Instructions Take Zofran as prescribed for nausea vomiting. Try to get at least 8 hours of sleep at night to help prevent recurrent symptoms. Follow-up with your PCP for recheck of your blood pressure within 5 to 7 days.[facility] Work Phone: Hospital Discharge instructions Additional Instructions [...] bowel control high fever or any other concernsHighland District Hospital Work Phone: Hospital Discharge instructions Additional Instructions [...] any more questions, please call Dr. Paniagua tomorrow.[facility] Work Phone: Hospital Discharge instructions Additional Instructions [...] leg I do want you to come back.[facility] Work Phone: Hospital Discharge instructions Additional Instructions [...] chest pain high fever or any other concernsHighland District Hospital Work Phone: Hospital Discharge instructions Additional Instructions Take Motrin Tylenol as needed for recurrent headache. Apply the nystatin cream for yeast infection. Follow-up with Dr. 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 Advance Directive(s) 08/22/2018 5:28 PM [...] section and content) DATE CREATED AUTHOR 04/15/2018 [facility] DATE CREATED AUTHOR AUTHOR'S ORGANIZ ATION 04/18/2018 [facility] DATE CREATED AUTHOR AUTHOR'S ORGANIZ ATION 05/31/2022 [facility] DATE CREATED AUTHOR AUTHOR'S ORGANIZ ATION 09/24/2022 [facility] DATE CREATED AUTHOR AUTHOR'S ORGANIZ ATION 02/25/2023 [facility] DATE CREATED AUTHOR AUTHOR'S ORGANIZ ATION 03/09/2023 Khalil Gilliam [facility] ical Center DATE CREATED AUTHOR AUTHOR'S ORGANIZ ATION 04/15/2024 [facility] DATE CREATED AUTHOR AUTHOR'S ORGANIZ ATION 05/14/2024 [facility] d[facility] Special[facility] EPIC Source Comments (unrecognize d section and content) In the event this informatio n is protected by the Federal Confidentiality of Alcohol and Drug Abuse Patient Records regulations: The Federal rules restrict any use of the information to criminally investigate or prosecute any alcohol or drug abuse patient.[facility] Reason for Visit (unrecogniz ed section and [...] Primary Care Provider Active Rachell Vang , PLATE FORMER- Emergency Provider Active Manager Of 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 Relationship Specialty Start Date End Date Annette Valladares SCOTTIE PCP - General Family Practice 04/05/17 Latonya Perkins MD [address] [facility] [address] [place] [phone] Referring [employer] ASSEMBLER 04/05/17 Team Status: Inactive Member Role Status [...] Member Role Status Dates Larissa Resendiz APRN HEBREW PROFESSOR-C Primary Care Provide r Active Stephanie Mcmahan DO Attending Provider Active Team Status: Active Member Role Status Dates Larissa Resendiz APRN HEBREW PROFESSOR-C Primary Care Provide r Active Team Status: Inactive Member Role Status Dates Stephanie Mcmahan DO Attending Provider Active Larissa Resendiz APRN HEBREW PROFESSOR-C Primary Care Provide r Active Team Status: [...] Primary Care Provider Active Larissa Resendiz APRN HEBREW PROFESSOR-C Attending Provider A ctive Team Status: Inactive [...] Member Role Status Dates Larissa Resendiz APRN HEBREW PROFESSOR-C Attending Provider A ctive Start: February 19, [...] BE BASED ON THE PRIMARY CLINICAL RECORDS. [employer] [facility]. provides no warranty or guarantee of the accuracy or completeness of information in this document."
[2024-11-29] MEDS: ONDANSETRON PF 4 MG/2 ML VIAL IV (15:33)
[2024-11-29] MEDS: 0.9 % SODIUM CHLORIDE 1,000 ML 999 ML IV (15:33)
[2024-11-29] MEDS: KETOROLAC TROMETHAMINE 30 MG/ML VIAL IVP (15:33)
[2024-11-29 15:45] LABS: Basophils Absolute Auto 0.1 10^3/uL (0.0-0.1); Basophils Percent Auto 0.4 % (0.2-2.0); Eosinophils Absolute Auto 0.1 10^3/uL (0.0-0.7); Eosinophils Percent Auto 0.7 % (0.9-7.0); Hematocrit 46.6 % (36.0-48.0); Hemoglobin 14.9 g/dL (12.0-16.0); Immature Granulocytes Abs Auto 0.03 10^3/uL (0.00-0.03); Immature Granulocytes Pct Auto 0.2 % (0.0-0.5); Lymphocytes Absolute Auto 2.7 10^3/uL (1.2-3.8); Lymphocytes Percent Auto 22.2 % (20.5-60.0); Mean Corpuscular Hemoglobin 27.7 pg (26.7-34.0); Mean Corpuscular Volume 86.8 fL (81.0-99.0); Mean Platelet Volume 11.4 fL (9.5-13.5); Monocytes Absolute Auto 0.8 10^3/uL (0.3-0.8); Monocytes Percent Auto 6.5 % (1.7-12.0); Neutrophils Absolute Auto 8.5 10^3/uL (1.4-6.5); Platelet Count 315 10^3/uL (150-450); Red Blood Count 5.37 10^6/uL (4.20-5.40); Red Cell Distribution Width 14.3 % (11.0-15.0); White Blood Count 12.1 10^3/uL (4.0-11.0)
[2024-11-29 15:57] LABS: Influenza Virus A Antigen Negative
[2024-11-29 15:58] LABS: Influenza Virus B Antigen Negative; Internal Control Within Normal Limits; SARS-CoV-2 Ag NEGATIVE (NEGATIVE)
[2024-11-29 16:03] LABS: Alanine Aminotransferase 24 U/L (14-59); Albumin Level 3.5 g/dL (3.4-5.0); Alkaline Phosphatase 134 U/L (46-116); Anion Gap 12.4; Aspartate Amino Transferase 12 U/L (15-37); BUN Creatinine Ratio 15.7; Bilirubin Total 0.2 mg/dL (0.2-1.0); Calcium 8.8 mg/dL (8.5-10.1); Carbon Dioxide 29.5 mmol/L (21.0-32.0); Chloride 104 mmol/L (98-107); Estimated GFR (African America >60 (>=60 mL/min/1.73m^2); Estimated GFR (Non-African Ame >60 (>=60 mL/min/1.73m^2); Globulin 3.5 g/dL; Glucose 91 mg/dL (74-106); Potassium 3.9 mmol/L (3.5-5.1); Sodium 142 mmol/L (136-145); Troponin I High Sensitivity 7.7 pg/mL (4.0-51.3)
[2024-11-29 16:29] VITALS: BP 118/64
== END 2024-11-29 17:01 | disposition home or self-care (01) ==
PROVIDERS: Personal Emergency Response Attendant; Emergency Provider Emergency Medicine
DX: R19.7 Diarrhea, unspecified (principal); J06.9 Acute upper respiratory infection, unspecified; Z90.710 Acquired absence of both cervix and uterus; F17.200 Nicotine dependence, unspecified, uncomplicated; E66.9 Obesity, unspecified; Z68.43 Body mass index [BMI] 50.0-59.9, adult
CPT/HCPCS: 36415; 71045; 80053; 83690; 84484; 85025; 87804; 87811; 93005; 96361; 96374; 96375; 99285; J1885; J2405

== ENCOUNTER 2025-01-19 13:45 | Emergency (ER) | payer OTHER, SELFPAY ==
[2025-01-19 13:54] VITALS: BP 161/84; PULSE 78; TEMP 36.8; O2SAT 96; BMI 52.8
--- NOTE | 2025-01-19 14:48 | PC.NURSE ---
Pt has red, yeasty rash under right abd skin fold. No treatment at home.
--- NOTE | 2025-01-19 14:50 | PC.NURSE ---
Pt reports pain to left foot, mild swelling noted. Pulses palpable and equal bilaterally. Pt denies injury to foot.
--- NOTE | 2025-01-19 14:58 | ED.GENADUL1 ---
HPI HPI - General Adult General Chief complaint: Skin/Abscess/Foreign Body Stated complaint: RASH WEAKNESS Time Seen by Provider: 01/19/25 13:59 Source: patient Mode of arrival: walk-in Limitations: no limitations History of Present Illness HPI narrative: Patient is a 39-year-old female who presents to the emergency department for a variety of medical complaints today. She has trouble providing the history as she continues to look at her phone throughout the duration of the interview. She states for the last 3 months she has had shortness of breath, she uses inhalers at home for history of asthma. She was treated for bronchitis and pneumonia from this emergency department several months ago. She has not seen her primary care provider for any of her complaints today. She further complains of a several week intermittent history of swelling to the dorsum of the left foot without injury. There has been no redness, open wounds or drainage. She is able to ambulate without difficulty. She has no concern for . She further complains of earwax in her left ear that has been an ongoing issue. She further complains of a rash to the pannus of the right abdomen without drainage. No fevers or vomiting. Related Data Home Medications ?Medication ?Instructions ?Recorded ?Confirmed alprazolam 1 mg tablet (Xanax) 1 mg PO BID PRN anxiety 05/23/24 08/20/24 dextroamphetamine-amphetamine 30 30 mg PO BID 05/23/24 05/23/24 mg tablet (Adderall) azithromycin 250 mg tablet 250 mg PO DAILY 08/20/24 08/20/24 metronidazole 0.75 % (37.5 mg/5 37.5 mg vaginal BID 08/20/24 08/20/24 gram) vaginal gel prednisone 50 mg tablet 50 mg PO DAILY 08/20/24 08/20/24 Previous Rx's ?Medication ?Instructions ?Recorded albuterol sulfate 90 mcg/actuation 2 inh inhalation Q4H PRN shortness 05/23/24 aerosol inhaler of breath or wheezing #8.5 grams albuterol sulfate 90 mcg/actuation 2 inh inhalation Q4H PRN shortness 05/23/24 aerosol inhaler of breath or wheezing #8.5 grams dicyclomine 20 mg tablet 20 mg PO TID PRN abdominal pain 2 11/29/24 days #6 tabs ondansetron HCl 4 mg tablet 4 mg PO Q6H PRN nausea and 11/29/24 vomiting #12 tabs cefdinir 300 mg capsule 300 mg PO BID 10 days #20 caps 01/19/25 methylprednisolone 4 mg tablets in See Rx Instructions .Route 01/19/25 a dose pack (Medrol (Wolfgang)) .COMPLEX #21 ea nystatin-triamcinolone 100,000 1 applic topical BID #30 grams 01/19/25 unit/gram-0.1 % topical ointment Allergies Allergy/AdvReac Type Severity Reaction Status Date / Time codeine Allergy Mild Rash Verified 01/19/25 13:58 Penicillins Allergy Unknown Rash Verified 01/19/25 13:58 sulfamethoxazole (From AdvReac Mild itchy Verified 01/19/25 13:58 Bactrim) trimethoprim (From Bactrim) AdvReac Mild itchy Verified 01/19/25 13:58 Opioid HPI Opioid Management Most Recent Opioid Data: No Data to Display Review of Systems ROS Constitutional Denies: fever or chills Ears, nose, mouth, and throat Denies: throat pain or nasal congestion Cardiovascular Denies: chest pain Respiratory Reports: shortness of breath and cough Gastrointestinal Denies: abdominal pain, nausea or vomiting Musculoskeletal Reports: extremity swelling; Denies: back pain, neck pain or extremity pain Integumentary/Breast Denies: rash Neurological Denies: numbness in extremities or weakness in extremities Hematologic/Lymphatic Denies: easy bruising or easy bleeding PFSH PFS Social History Smoking status: Current every day smoker Little interest or pleasure in doing things: not at all Feeling down, depressed, or hopeless: not at all Exam Narrative Exam Narrative: Gen.: Awake, alert, in no distress, scrolling through a [employer] website on her phone throughout the duration of the history and physical Head: Normocephalic, atraumatic ENT: Moist mucous membranes, cerumen impaction of the left ear Respiratory: No respiratory distress, lungs clear bilaterally Cardio: Regular rate and rhythm Extremities: Moves extremities equally, no appreciable swelling, redness or obvious deformity to the feet Psych: Normal mood and affect Neuro: No focal neuro deficit Skin: Warm, dry, intact, erythematous fungal rash in the pannus of the right abdomen Constitutional Vital Signs, click to edit/add: Last Vital Signs Temp 98.2 F 01/19/25 13:54 Pulse 78 01/19/25 13:54 Resp 18 01/19/25 13:54 BP 161/84 H 01/19/25 13:54 Pulse Ox 96 01/19/25 13:54 O2 Del Method Room Air 01/19/25 13:54 Course Vital Signs Vital signs: Vital Signs Temperature 98.2 F 01/19/25 13:54 Pulse Rate 78 01/19/25 13:54 Respiratory Rate 18 01/19/25 13:54 Blood Pressure 161/84 H 01/19/25 13:54 Pulse Oximetry 96 01/19/25 13:54 Oxygen Delivery Method Room Air 01/19/25 13:54 Temperature 98.2 F 01/19/25 13:54 Pulse Rate 78 01/19/25 13:54 Respiratory Rate 18 01/19/25 13:54 Blood Pressure 161/84 H 01/19/25 13:54 Pulse Oximetry 96 01/19/25 13:54 Oxygen Delivery Method Room Air 01/19/25 13:54 Medical Decision Making MDM Narrative Medical decision making narrative: X-rays of the chest and foot were obtained showing a right lower lobe infiltrate that is minimal. Patient is hemodynamically stable with unremarkable vital signs. She will be treated with cefdinir and a steroid taper for home. Debrox sent home with the patient so she can irrigate the cerumen out of her left ear. She was given a primary care referral list. Nystatin given for fungal rash under the pannus. Follow-up with PCP and return to the ER if symptoms change or worsen SUPERVISED APC VISIT, PHYSICIAN ATTESTATION: Based on the medical record the care appears appropriate. ? Medical Records Medical records reviewed: Yes I reviewed the patient's medical records Imaging Data Chest x-ray: Attestation: I have reviewed the pertinent imaging results. Discharge Plan Discharge Chief Complaint: Skin/Abscess/Foreign Body Clinical Impression: Right lower lobe pneumonia, Swelling of left foot, Impacted cerumen of left ear, Diamante infection Patient Disposition: Home, Self-Care Time of Disposition Decision: 14:54 Condition: Good Prescriptions / Home Meds: New nystatin-triamcinolone 100,000-0.1 unit/gram-% ointment 1 applic topical BID Qty: 30 0RF methylprednisolone [Medrol (Wolfgang)] 4 mg tablets,dose pack See Rx Instructions .ROUTE .COMPLEX Qty: 21 0RF Rx Instructions: Taper as directed cefdinir 300 mg capsule 300 mg PO BID 10 Days Qty: 20 0RF No Action dextroamphetamine-amphetamine [Adderall] 30 mg tablet 30 mg PO BID Rx Instructions: administer doses at least 4-6 hours apart alprazolam [Xanax] 1 mg tablet 1 mg PO BID PRN (Reason: anxiety) albuterol sulfate 90 mcg/actuation HFA aerosol inhaler 2 inh inhalation Q4H PRN (Reason: shortness of breath or wheezing) Qty: 8.5 0RF albuterol sulfate 90 mcg/actuation HFA aerosol inhaler 2 inh inhalation Q4H PRN (Reason: shortness of breath or wheezing) Qty: 8.5 0RF ondansetron HCl 4 mg tablet 4 mg PO Q6H PRN (Reason: nausea and vomiting) Qty: 12 0RF dicyclomine 20 mg tablet 20 mg PO TID PRN (Reason: abdominal pain) 2 Days Qty: 6 0RF azithromycin 250 mg tablet 250 mg PO DAILY metronidazole 0.75 % (37.5mg/5 gram) gel 37.5 mg VAGINAL BID prednisone 50 mg tablet 50 mg PO DAILY Print Language: Nepali Instructions: Yeast Infection (ED), Pneumonia (ED) Referrals: [facility] [Primary Care Provider] - 1 week
[2025-01-19] MEDS: CARBAMIDE PEROXIDE 6.5% EAR DROPS 300 DROP/15 ML BOTTLE 10 DROP OT (15:11)
== END 2025-01-19 15:11 | disposition home or self-care (01) ==
PROVIDERS: Emergency Provider Emergency Medicine
DX: J18.9 Pneumonia, unspecified organism (principal); J45.909 Unspecified asthma, uncomplicated; Z87.01 Personal history of pneumonia (recurrent); F17.200 Nicotine dependence, unspecified, uncomplicated; H61.22 Impacted cerumen, left ear; B37.2 Candidiasis of skin and nail; R22.42 Localized swelling, mass and lump, left lower limb
CPT/HCPCS: 71046; 73630; 99284

== ENCOUNTER 2025-02-18 00:10 | Emergency (ER) | payer OTHER, SELFPAY ==
[2025-02-18 00:17] VITALS: BP 183/108; PULSE 85; TEMP 36.9; O2SAT 99; BMI 51.3
--- NOTE | 2025-02-18 00:36 | ED_ITS ---
HPI - URI/Sore Throat General Chief Complaint: Shortness of Breath/Dyspnea Stated Complaint: SOB Time Seen by Provider: 02/18/25 00:21 Source: patient Limitations: no limitations History of Present Illness HPI Narrative: history of asthma and daily smoker. Presents complaining of cough and concerned she may have pneumonia again. no fever , chest pain or nausea. Related Data Home Medications ?Medication ?Instructions ?Recorded ?Confirmed alprazolam 1 mg tablet (Xanax) 1 mg PO BID PRN anxiety 05/23/24 08/20/24 dextroamphetamine-amphetamine 30 30 mg PO BID 05/23/24 05/23/24 mg tablet (Adderall) azithromycin 250 mg tablet 250 mg PO DAILY 08/20/24 08/20/24 metronidazole 0.75 % (37.5 mg/5 37.5 mg vaginal BID 08/20/24 08/20/24 gram) vaginal gel prednisone 50 mg tablet 50 mg PO DAILY 08/20/24 08/20/24 Previous Rx's ?Medication ?Instructions ?Recorded albuterol sulfate 90 mcg/actuation 2 inh inhalation Q4H PRN shortness 05/23/24 aerosol inhaler of breath or wheezing #8.5 grams albuterol sulfate 90 mcg/actuation 2 inh inhalation Q4H PRN shortness 05/23/24 aerosol inhaler of breath or wheezing #8.5 grams dicyclomine 20 mg tablet 20 mg PO TID PRN abdominal pain 2 11/29/24 days #6 tabs ondansetron HCl 4 mg tablet 4 mg PO Q6H PRN nausea and 11/29/24 vomiting #12 tabs cefdinir 300 mg capsule 300 mg PO BID 10 days #20 caps 01/19/25 methylprednisolone 4 mg tablets in See Rx Instructions .Route 01/19/25 a dose pack (Medrol (Wolfgang)) .COMPLEX #21 ea nystatin-triamcinolone 100,000 1 applic topical BID #30 grams 01/19/25 unit/gram-0.1 % topical ointment Allergies Allergy/AdvReac Type Severity Reaction Status Date / Time codeine Allergy Mild Rash Verified 02/18/25 00:22 Penicillins Allergy Unknown Rash Verified 02/18/25 00:22 sulfamethoxazole (From AdvReac Mild itchy Verified 02/18/25 00:22 Bactrim) trimethoprim (From Bactrim) AdvReac Mild itchy Verified 02/18/25 00:22 Review of Systems ROS Status of ROS 10 or more systems reviewed and unremark able except as noted in history and below PFSH PFS Social History Smoking status: Current every day smoker Little interest or pleasure in doing things: not at all Feeling down, depressed, or hopeless: not at all Exam Constitutional Vital Signs, click to edit/add: Last Vital Signs Temp 98.4 F 02/18/25 00:17 Pulse 84 02/18/25 04:21 Resp 16 02/18/25 04:21 BP 134/78 02/18/25 04:21 Pulse Ox 97 02/18/25 04:21 O2 Del Method Room Air 02/18/25 04:21 Common normals: no apparent distress, average body habitus, oriented x3, no limitations, healthy appearing, alert and well nourished [facility] Common normals: normocephalic and head/scalp atraumatic Respiratory Common normals: normal respiratory effort, no retractions, no use of accessory muscles and clear to auscultation bilaterally Cardio Common normals: regular rate, regular rhythm, S1 normal heart sound and S2 normal heart sound GI Common normals: Normal to inspection, nondistended, normoactive bowel sounds present and soft to palpation Extremity Common normals: normal to inspection and full ROM Neuro Common normals: oriented x3, CN's II-XII intact bilaterally, moves all extremities and no focal motor deficits Psych Appearance: grossly normal Course Vital Signs Vital signs: Vital Signs Temperature 98.4 F 02/18/25 00:17 Pulse Rate 85 02/18/25 00:17 Respiratory Rate 18 02/18/25 00:17 Blood Pressure 183/108 H 02/18/25 00:17 Pulse Oximetry 99 02/18/25 00:17 Oxygen Delivery Method Room Air 02/18/25 00:17 Temperature 98.4 F 02/18/25 00:17 Pulse Rate 84 02/18/25 04:21 Respiratory Rate 16 02/18/25 04:21 Blood Pressure 134/78 02/18/25 04:21 Pulse Oximetry 97 02/18/25 04:21 Oxygen Delivery Method Room Air 02/18/25 04:21 MDM - URI/Sore Throat MDM Narrative Medical decision making narrative: daily smoker presents with cough. Not short of breath. past history of pneumonia. exam neg. cxray with Coarsened bronchovascular pattern of the lungs. Patient informed of the diagnosis and discharged home to follow up with her doctor. Prescribed zpak Lab Data Labs: Lab Results 02/18/25 Range/Units 00:46 WBC 13.6 H (4.0-11.0) 10^3/uL RBC 5.37 (4.20-5.40) 10^6/uL Hgb 15.0 (12.0-16.0) g/dL Hct 46.2 (36.0-48.0) % MCV 86.0 (81.0-99.0) fL MCH 27.9 (26.7-34.0) pg MCHC 32.5 (29.9-35.2) g/dL RDW 14.7 (11.0-15.0) % Plt Count 320 (150-450) 10^3/uL MPV 11.4 (9.5-13.5) fL Neut % (Auto) 66.1 (43.0-75.0) % Lymph % (Auto) 27.3 (20.5-60.0) % Erath % (Auto) 4.4 (1.7-12.0) % Eos % (Auto) 1.5 (0.9-7.0) % Baso % (Auto) 0.4 (0.2-2.0) % Neut # (Auto) 9.0 H (1.4-6.5) 10^3/uL Lymph # (Auto) 3.7 (1.2-3.8) 10^3/uL Erath # (Auto) 0.6 (0.3-0.8) 10^3/uL Eos # (Auto) 0.2 (0.0-0.7) 10^3/uL Baso # (Auto) 0.1 (0.0-0.1) 10^3/uL Abs Immat Gran (auto) 0.04 H (0.00-0.03) 10^3/uL Imm/Tot Granulo (auto) 0.3 (0.0-0.5) % Sodium 140 (136-145) mmol/L Potassium 3.7 (3.5-5.1) mmol/L Chloride 104 (98-107) mmol/L Carbon Dioxide 25.7 (21.0-32.0) mmol/L Anion Gap 14.0 BUN 18.0 (7.0-18.0) mg/dL Creatinine 0.81 (0.55-1.02) mg/dL Est GFR ( Amer) >60 (>=60 mL/min/1.73m^2) Est GFR (Non-Af Amer) >60 (>=60 mL/min/1.73m^2) BUN/Creatinine Ratio 22.2 Glucose 167 H (74-106) mg/dL Calcium 9.0 (8.5-10.1) mg/dL Discharge Plan Discharge Chief Complaint: Shortness of Breath/Dyspnea Clinical Impression: Bronchitis Patient Disposition: Home, Self-Care Prescriptions / Home Meds: No Action dextroamphetamine-amphetamine [Adderall] 30 mg tablet 30 mg PO BID Rx Instructions: administer doses at least 4-6 hours apart alprazolam [Xanax] 1 mg tablet 1 mg PO BID PRN (Reason: anxiety) albuterol sulfate 90 mcg/actuation HFA aerosol inhaler 2 inh inhalation Q4H PRN (Reason: shortness of breath or wheezing) Qty: 8.5 0RF albuterol sulfate 90 mcg/actuation HFA aerosol inhaler 2 inh inhalation Q4H PRN (Reason: shortness of breath or wheezing) Qty: 8.5 0RF ondansetron HCl 4 mg tablet 4 mg PO Q6H PRN (Reason: nausea and vomiting) Qty: 12 0RF dicyclomine 20 mg tablet 20 mg PO TID PRN (Reason: abdominal pain) 2 Days Qty: 6 0RF nystatin-triamcinolone 100,000-0.1 unit/gram-% ointment 1 applic topical BID Qty: 30 0RF methylprednisolone [Medrol (Wolfgang)] 4 mg tablets,dose pack See Rx Instructions .ROUTE .COMPLEX Qty: 21 0RF Rx Instructions: Taper as directed cefdinir 300 mg capsule 300 mg PO BID 10 Days Qty: 20 0RF azithromycin 250 mg tablet 250 mg PO DAILY metronidazole 0.75 % (37.5mg/5 gram) gel 37.5 mg VAGINAL BID prednisone 50 mg tablet 50 mg PO DAILY Print Language: Panamanian Instructions: Acute Bronchitis (ED) Referrals: [facility] [Primary Care Provider] - 1 week Discharge Date/Time: 02/18/25 04:23
[2025-02-18 00:53] LABS: Basophils Absolute Auto 0.1 10^3/uL (0.0-0.1); Basophils Percent Auto 0.4 % (0.2-2.0); Eosinophils Absolute Auto 0.2 10^3/uL (0.0-0.7); Eosinophils Percent Auto 1.5 % (0.9-7.0); Hematocrit 46.2 % (36.0-48.0); Immature Granulocytes Abs Auto 0.04 10^3/uL (0.00-0.03); Immature Granulocytes Pct Auto 0.3 % (0.0-0.5); Lymphocytes Absolute Auto 3.7 10^3/uL (1.2-3.8); Lymphocytes Percent Auto 27.3 % (20.5-60.0); Mean Corpuscular HGB Conc 32.5 g/dL (29.9-35.2); Mean Corpuscular Hemoglobin 27.9 pg (26.7-34.0); Mean Platelet Volume 11.4 fL (9.5-13.5); Monocytes Absolute Auto 0.6 10^3/uL (0.3-0.8); Monocytes Percent Auto 4.4 % (1.7-12.0); Neutrophils Percent Auto 66.1 % (43.0-75.0); Platelet Count 320 10^3/uL (150-450); Red Blood Count 5.37 10^6/uL (4.20-5.40); Red Cell Distribution Width 14.7 % (11.0-15.0); White Blood Count 13.6 10^3/uL (4.0-11.0)
[2025-02-18 01:05] LABS: BUN Creatinine Ratio 22.2; Carbon Dioxide 25.7 mmol/L (21.0-32.0); Chloride 104 mmol/L (98-107); Estimated GFR (African America >60 (>=60 mL/min/1.73m^2); Estimated GFR (Non-African Ame >60 (>=60 mL/min/1.73m^2); Glucose 167 mg/dL (74-106); Potassium 3.7 mmol/L (3.5-5.1); Sodium 140 mmol/L (136-145)
[2025-02-18] MEDS: AZITHROMYCIN 250 MG TABLET 500 MG PO (04:14)
[2025-02-18 04:21] VITALS: BP 134/78; PULSE 84; O2SAT 97
== END 2025-02-18 04:23 | disposition home or self-care (01) ==
PROVIDERS: Emergency Provider Internal Medicine
DX: J45.909 Unspecified asthma, uncomplicated (principal); F17.200 Nicotine dependence, unspecified, uncomplicated; Z87.01 Personal history of pneumonia (recurrent)
CPT/HCPCS: 36415; 71046; 80048; 85025; 99284

== ENCOUNTER 2025-06-02 21:15 | Emergency (ER) | payer OTHER, SELFPAY ==
[2025-06-02 21:21] VITALS: BP 130/80; PULSE 80; TEMP 36.6; O2SAT 99; BMI 50.1
--- OUTSIDE RECORDS SUMMARY | 2025-06-02 21:32 | XMS_ITS | CCD ---
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 Impression dictated by: Jarek Gann Jr., DJalenOJalen 03/09/2025 8:55 AM Dictation Location: [place] [address] Transcribed By: [facility] 03/09/2555 Dictated By: Jarek Gann Jr, DO 03/09/25 0852 Signed By: 03/09/25854 Normal [facility] Activated partial thrombopla stin time (aPTT) in platelet poor plasma by coagulation aOrdered By: Keith Lugo on 03-31-2024 aPTT Coag (PPP) [Time] 30.4 s 25.1-36.5 [facility] Comment on above: A hematocrit value g reater than 55% may lead to inaccurate results in coagulation testing. Patients having hematocrit values >55% require a special collection tube for coagulation studies. Please contact the laboratory at [phone] for redraw instructions. Basophils Auto (Bld) [#/Vol] Ordered By: Keith Lugo on 03-31-2024 Basophils (Bld) [#/Vol] 0.1 10*3/uL 0.0-0.2 [facility] Basophils/100 WBC Auto (Bld) Ordered By: Keith Lugo on 03-31-2024 Basophils/100 WBC (Bld) 1.2 % . [facility] Bilirubin Test strip Ql (U)O rdered By: Keith Lugo on 03-31-2024 Bilirubin Ql (U) Negative Negative [facility] COVID CepheidOrdered By: Dusty Lugo on 03-31-2024 SARS-CoV-2 (COVID-19) Ab IA Ql Negative Negative [facility] Comment on above: This is a duplicate [employer] Xpert Xpress CoV-2/Flu/RSV Plus RNA by RT-PCR result to be used for statistical tracking purpose only. SARS-CoV-2 (COVID-19) RNA JUDIT+probe Ql (Unsp spec) [facility] Calcium [Mass/volume] in Ser um or PlasmaOrdered By: Keith Lugo on 03-31-2024 Calcium [Mass/Vol] 9.5 mg/dL 8.6-10.3 [facility] Carbon dioxide, total [Moles /volume] in Serum or PlasmaOrdered By: Keith Lugo on 03-31-2024 CO2 [Moles/Vol] 26.8 mmol/L 21.0-31.0 [facility] Chloride [Moles/volume] in S gale or PlasmaOrdered By: Keith Lugo on 03-31-2024 Chloride [Moles/Vol] 103 mmol/L 98-107 [facility] Color Auto (U)Ordered By: Hudson Lugo on 03-31-2024 Color (U) Light-yellow Yellow [facility] Creatine kinase [Enzymatic a ctivity/volume] in Serum or PlasmaOrdered By: Keith Lugo on 03-31-2024 CK [Catalytic activity/Vol] 83 U/L 30-223 [facility] Creatinine [Mass/volume] in Serum or PlasmaOrdered By: Keith Lugo on 03-31-2024 Creatinine [Mass/Vol] 0.59 mg/dL 0.60-1.20 [facility] Eosinophils Auto (Bld) [#/Vo l]Ordered By: Keith Lugo on 03-31-2024 Eosinophils (Bld) [#/Vol] 0.1 10*3/uL 0.0-0.45 [facility] Eosinophils/100 WBC Auto (Bl d)Ordered By: Keith Lugo on 03-31-2024 Eosinophils/100 WBC (Bld) 1.3 % . [facility] Erythrocyte distribution wid th Auto (RBC) [Ratio]Ordered By: Keith Lugo on 03-31-2024 Erythrocyte distribution width (RBC) [Ratio] 14.4 % 11.9-15.3 [facility] Glucose [Mass/volume] in Ser um or PlasmaOrdered By: Keith Lugo on 03-31-2024 Glucose [Mass/Vol] 106 mg/dL 70-100 [facility] Comment on above: ADA recommended refe rence rangeRandom Glucose Reference Range is dependent on time and content of last meal. Glucose of more than 200 mg/dL in a nonstressed, ambulatory subject supports the diagnosis of Diabetes Mellitus. Glucose [Mass/volume] in Uri ne by Test stripOrdered By: Keith Lugo on 03-31-2024 Glucose Test strip (U) [Mass/Vol] Normal mg/dL Normal [facility] HCG ( test) IA.rapi d Ql (U)Ordered By: Keith Lugo on 03-31-2024 HCG ( test) Ql (U) Negative [facility] Hematocrit Auto (Bld) [Volum e fraction]Ordered By: Keith Lugo on 03-31-2024 Hematocrit (Bld) [Volume fraction] 45.3 % 34.0-46.4 [facility] Hemoglobin Test strip Ql (U) Ordered By: Keith Lugo on 03-31-2024 Hemoglobin Ql (U) Negative Negative [facility] Hemoglobin [Mass/volume] in BloodOrdered By: Keith Lugo on 03-31-2024 Hemoglobin (Bld) [Mass/Vol] 14.9 g/dL 11.8-15.4 [facility] INR in Platelet poor plasma by Coagulation assayOrdered By: Keith Lugo on 03-31-2024 INR Coag (PPP) [Relative time] 1.0 {INR} [facility] Comment on above: INR Therapeutic Rang e A) Pre- and Peroperative OAT started two weeks before surgery. NOT HIP SURGERY: 1.5 - 2.5 HIP SURGERY: 2 - 3B) Primary and secondary prevention of venous THROMBOSIS: 2 - 3C) Active venous thrombosis, pulmonary embolismand prevention of recurrent venous thrombosis: 2 - 3D) Prevention of arterial thromboembolismincluding patients with mechanical heart valves: 3 - 4.5 Ketones Test strip Ql (U)Ord ered By: Keith Lugo on 03-31-2024 Ketones Ql (U) Negative Negative [facility] Leukocyte esterase [Presence ] in Urine by Test stripOrdered By: Keith Lugo on 03-31-2024 Leukocyte esterase Test strip Ql (U) Negative Negative [facility] Leukocytes [#/volume] correc taurus for nucleated erythrocytes in Blood by Automated counOrdered By: Keith Lugo on 03-31-2024 WBC corrected for nucl RBC Auto (Bld) [#/Vol] 10.0 10*3/uL 3.8-11.6 [facility] Lymphocytes Auto (Bld) [#/Vo l]Ordered By: Keith Lugo on 03-31-2024 Lymphocytes (Bld) [#/Vol] 2.9 10*3/uL 1.00-4.8 [facility] Lymphocytes/100 WBC Auto (Bl d)Ordered By: Keith Lugo on 03-31-2024 Lymphocytes/100 WBC (Bld) 29.1 % . [facility] MCH Auto (RBC) [Entitic mass ]Ordered By: Keith Lugo on 03-31-2024 MCH (RBC) [Entitic mass] 27.8 pg 24.7-34.3 [facility] MCHC Auto (RBC) [Mass/Vol]Or dered By: Keith Lugo on 03-31-2024 MCHC (RBC) [Mass/Vol] 32.9 g/dL 32.0-35.0 [facility] MCV Auto (RBC) [Entitic vol] Ordered By: Keith Lugo on 03-31-2024 MCV (RBC) [Entitic vol] 84.4 fL 80-100 [facility] Monocyte distribution width [Entitic volume] in Blood by AutomatedOrdered By: Keith Lugo on 03-31-2024 Monocyte distribution width Auto (Bld) [Entitic vol] 17.93 % 0.00-20.00 [facility] Monocytes Auto (Bld) [#/Vol] Ordered By: Keith Lugo on 03-31-2024 Monocytes (Bld) [#/Vol] 0.7 10*3/uL 0.0-0.8 [facility] Monocytes/100 WBC Auto (Bld) Ordered By: Keith Lugo on 03-31-2024 Monocytes/100 WBC (Bld) 7.0 % . [facility] Natriuretic peptide B [Mass/ Vol]Ordered By: Keith Lugo on 03-31-2024 Natriuretic peptide B (Bld) [Mass/Vol] 10.0 pg/mL 5-100 [facility] Neutrophils Auto (Bld) [#/Vo l]Ordered By: Keith Lugo on 03-31-2024 Neutrophils (Bld) [#/Vol] 6.1 10*3/uL 1.8-7.7 [facility] Neutrophils/100 WBC Auto (Bl d)Ordered By: Keith Lugo on 03-31-2024 Neutrophils/100 WBC (Bld) 61.4 % . [facility] Nitrite Test strip Ql (U)Ord ered By: Keith Lugo on 03-31-2024 Nitrite Ql (U) Negative Negative [facility] No Panel InformationOrdered By: Keith Lugo on 03-31-2024 Estimated GFR (CKD-EPI) > 60.0 mL/Min [facility] Creatinine Clearance (Chem 171.54 [facility] Nucleated erythrocytes [Pres ence] in Blood by Automated countOrdered By: Keith Lugo on 03-31-2024 Nucleated RBC Auto Ql (Bld) 0.1 /100{WBC} 0-0.5 [facility] Platelet mean volume Auto (B ld) [Entitic vol]Ordered By: Keith Lugo on 03-31-2024 Platelet mean volume (Bld) [Entitic vol] 9.4 fL 6.3-10.7 [facility] Platelets Auto (Bld) [#/Vol] Ordered By: Keith Lugo on 03-31-2024 Platelets (Bld) [#/Vol] 277 10*3/uL 150-450 [facility] Potassium [Moles/volume] in Serum or PlasmaOrdered By: Keith Lugo on 03-31-2024 Potassium [Moles/Vol] 3.7 mmol/L 3.5-5.1 [facility] Protein Test strip (U) [Mass /Vol]Ordered By: Keith Lugo on 03-31-2024 Protein (U) [Mass/Vol] Negative Negative [facility] Prothrombin time (PT)Ordered By: Keith Lugo on 03-31-2024 PT Coag (PPP) [Time] 11.1 s 9.0-12.9 [facility] Comment on above: A hematocrit value g reater than 55% may lead to inaccurate results in coagulation testing. Patients having hematocrit values >55% require a special collection tube for coagulation studies. Please contact the laboratory at [phone] for redraw instructions. RBC Auto (Bld) [#/Vol]Ordere d By: Keith Lugo on 03-31-2024 RBC (Bld) [#/Vol] 5.36 10*6/uL 3.60-5.00 [facility] Serum or plasma anion gap de terminationOrdered By: Keith Lugo on 03-31-2024 Anion gap [Moles/Vol] 9.9 mmol/L 6.0-15.0 [facility] Sodium [Moles/volume] in Ser um or PlasmaOrdered By: Keith Lugo on 03-31-2024 Sodium [Moles/Vol] 136 mmol/L 136-145 [facility] Specific gravity Test strip (U) [Rel density]Ordered By: Keith Lugo on 03-31-2024 Specific gravity (U) [Rel density] 1.024 1.001-1.03 0 [facility] Troponin I.cardiac [Mass/vol ume] in Serum or Plasma by Detection limit <= 0.01 ng/Ordered By: Keith Lugo on 03-31-2024 Troponin I.cardiac DL <= 0.01 ng/mL [Mass/Vol] 4.1 pg/mL 0.0-15.0 [facility] Urea nitrogen [Mass/volume] in Serum or PlasmaOrdered By: Keith Lugo on 03-31-2024 Urea nitrogen [Mass/Vol] 18 mg/dL 7-25 [facility] Urine appearanceOrdered By: Keith Lugo on 03-31-2024 Appearance (U) Clear Clear [facility] Urobilinogen Test strip (U) [Mass/Vol]Ordered By: Keith Lugo on 03-31-2024 Urobilinogen (U) [Mass/Vol] Normal mg/dL Normal [facility] WBC Auto (Bld) [#/Vol]Ordere d By: Keith Lugo on 03-31-2024 WBC (Bld) [#/Vol] 10.0 10*3/uL 3.8-11.6 [facility] pH Test strip (U)Ordered By: Keith Lugo on 03-31-2024 pH (U) 5.5 [pH] 5.0-9.0 [facility] Hepatitis B virus surface Ag [Presence] in Serum or Plasma by ImmunoassayOrdered By: Larissa Resendiz on 02-19-2024 HBV surface Ag IA Ql Negative Negative [facility] Hepatitis C virus IgG Ab [Pr esence] in Serum or Plasma by ImmunoassayOrdered By: Larissa Resendiz on 02-19-2024 HCV IgG IA Ql Non-Reactive Non Reactive [facility] No Panel InformationOrdered By: Larissa Resendiz on 02-19-2024 Hepatitis A IgM Antibody Negative Negative [facility] Hepatitis B Core IgM Antibody Negative Negative [facility] Hepatitis C Interpretation See comment . [facility] Comment on above: Not infected with HC V unless early or acute infection issuspected (which may be delayed in an immunocompromisedindividual), or other evidence exists to indicate HCVinfection.Performed at: [facility] [place] [id number] Director: Rell Hernandez PhD, Phone: [phone] Alanine aminotransferase [En zymatic activity/volume] in Serum or PlasmaOrdered By: Renato Kumar on 11-15-2023 ALT [Catalytic activity/Vol] 21 U/L 7-52 [facility] Albumin [Mass/volume] in Ser um or Plasma by Bromocresol green (BCG) dye binding methoOrdered By: Renato Kumar on 11-15-2023 Albumin BCG dye [Mass/Vol] 4.0 g/dL 3.5-5.7 [facility] Alkaline phosphatase [Enzyma tic activity/volume] in Serum or PlasmaOrdered By: Renato Kumar on 11-15-2023 ALP [Catalytic activity/Vol] 102 U/L 34-104 [facility] Aspartate aminotransferase [ Enzymatic activity/volume] in Serum or PlasmaOrdered By: Renato Kumar on 11-15-2023 AST [Catalytic activity/Vol] 16 U/L 13-39 [facility] Basophils Auto (Bld) [#/Vol] Ordered By: Renato Kumar on 11-15-2023 Basophils (Bld) [#/Vol] 0.1 10*3/uL 0.0-0.2 [facility] Basophils/100 WBC Auto (Bld) Ordered By: Renato Kumar on 11-15-2023 Basophils/100 WBC (Bld) 0.9 % . [facility] Bilirubin Test strip Ql (U)O rdered By: Renato Kumar on 11-15-2023 Bilirubin Ql (U) Negative Negative [facility] Bilirubin.total [Mass/volume ] in Serum or PlasmaOrdered By: Renato Kumar on 11-15-2023 Bilirubin [Mass/Vol] 0.2 mg/dL 0.3-1.0 [facility] Calcium [Mass/volume] in Ser um or PlasmaOrdered By: Renato Kumar on 11-15-2023 Calcium [Mass/Vol] 8.9 mg/dL 8.6-10.3 [facility] Carbon dioxide, total [Moles /volume] in Serum or PlasmaOrdered By: Renato Kumar on 11-15-2023 CO2 [Moles/Vol] 27.0 mmol/L 21.0-31.0 [facility] Chloride [Moles/volume] in S gale or PlasmaOrdered By: Renato Kumar on 11-15-2023 Chloride [Moles/Vol] 108 mmol/L 98-107 [facility] Color Auto (U)Ordered By: Rachael Kumar on 11-15-2023 Color (U) Yellow Yellow [facility] Creatinine [Mass/volume] in Serum or PlasmaOrdered By: Renato Kumar on 11-15-2023 Creatinine [Mass/Vol] 0.64 mg/dL 0.60-1.20 [facility] Eosinophils Auto (Bld) [#/Vo l]Ordered By: Renato Kumar on 11-15-2023 Eosinophils (Bld) [#/Vol] 0.1 10*3/uL 0.0-0.45 [facility] Eosinophils/100 WBC Auto (Bl d)Ordered By: Renato Kumar on 11-15-2023 Eosinophils/100 WBC (Bld) 0.9 % . [facility] Erythrocyte distribution wid th Auto (RBC) [Ratio]Ordered By: Renato Kumar on 11-15-2023 Erythrocyte distribution width (RBC) [Ratio] 14.9 % 11.9-15.3 [facility] Globulin Calc (S) [Mass/Vol] Ordered By: Renato Kumar on 11-15-2023 Globulin (S) [Mass/Vol] 2.6 g/dL [facility] Glucose [Mass/volume] in Ser um or PlasmaOrdered By: Renato Kumar on 11-15-2023 Glucose [Mass/Vol] 87 mg/dL 70-100 [facility] Comment on above: ADA recommended refe rence rangeRandom Glucose Reference Range is dependent on time and content of last meal. Glucose of more than 200 mg/dL in a nonstressed, ambulatory subject supports the diagnosis of Diabetes Mellitus. HCG ( test) IA.rapi d Ql (U)Ordered By: Renato Kumar on 11-15-2023 HCG ( test) Ql (U) Negative [facility] Hematocrit Auto (Bld) [Volum e fraction]Ordered By: Renato Kumar on 11-15-2023 Hematocrit (Bld) [Volume fraction] 42.2 % 34.0-46.4 [facility] Hemoglobin [Mass/volume] in BloodOrdered By: Renato Kumar on 11-15-2023 Hemoglobin (Bld) [Mass/Vol] 14.0 g/dL 11.8-15.4 [facility] Ketones Auto test strip (U) [Mass/Vol]Ordered By: Renato Kumar on 11-15-2023 Ketones (U) [Mass/Vol] Negative Negative [facility] Leukocytes [#/volume] correc taurus for nucleated erythrocytes in Blood by Automated counOrdered By: Renato Kumra on 11-15-2023 WBC corrected for nucl RBC Auto (Bld) [#/Vol] 12.5 10*3/uL 3.8-11.6 [facility] Lipase [Enzymatic activity/v olume] in Serum or PlasmaOrdered By: Renato Kumar on 11-15-2023 Lipase [Catalytic activity/Vol] 14.0 U/L 11.0-82.0 [facility] Lymphocytes Auto (Bld) [#/Vo l]Ordered By: Renato Kumar on 11-15-2023 Lymphocytes (Bld) [#/Vol] 2.4 10*3/uL 1.00-4.8 [facility] Lymphocytes/100 WBC Auto (Bl d)Ordered By: Renato Kumar on 11-15-2023 Lymphocytes/100 WBC (Bld) 19.5 % . [facility] MCH Auto (RBC) [Entitic mass ]Ordered By: Renato Kumar on 11-15-2023 MCH (RBC) [Entitic mass] 28.1 pg 24.7-34.3 [facility] MCHC Auto (RBC) [Mass/Vol]Or dered By: Renato Kumar on 11-15-2023 MCHC (RBC) [Mass/Vol] 33.2 g/dL 32.0-35.0 [facility] MCV Auto (RBC) [Entitic vol] Ordered By: Renato Kumar on 11-15-2023 MCV (RBC) [Entitic vol] 84.7 fL 80-100 [facility] Monocyte distribution width [Entitic volume] in Blood by AutomatedOrdered By: Renato Kumar on 11-15-2023 Monocyte distribution width Auto (Bld) [Entitic vol] 17.23 % 0.00-20.00 [facility] Monocytes Auto (Bld) [#/Vol] Ordered By: Renato Kumar on 11-15-2023 Monocytes (Bld) [#/Vol] 0.8 10*3/uL 0.0-0.8 [facility] Monocytes/100 WBC Auto (Bld) Ordered By: Renato Kumar on 11-15-2023 Monocytes/100 WBC (Bld) 6.3 % . [facility] Neutrophils Auto (Bld) [#/Vo l]Ordered By: Renato Kumar on 11-15-2023 Neutrophils (Bld) [#/Vol] 9.1 10*3/uL 1.8-7.7 [facility] Neutrophils/100 WBC Auto (Bl d)Ordered By: Renato Kumar on 11-15-2023 Neutrophils/100 WBC (Bld) 72.4 % . [facility] Nitrite Test strip Ql (U)Ord ered By: Renato Kumar on 11-15-2023 Nitrite Ql (U) Negative Negative [facility] No Panel InformationOrdered By: Renato Kumar on 11-15-2023 Estimated GFR (CKD-EPI) > 60.0 mL/Min [facility] Creatinine Clearance (Chem 154.63 [facility] Nucleated erythrocytes [Pres ence] in Blood by Automated countOrdered By: Renato Kumar on 11-15-2023 Nucleated RBC Auto Ql (Bld) 0.1 /100{WBC} 0-0.5 [facility] Platelet mean volume Auto (B ld) [Entitic vol]Ordered By: Renato Kumar on 11-15-2023 Platelet mean volume (Bld) [Entitic vol] 9.6 fL 6.3-10.7 [facility] Platelets Auto (Bld) [#/Vol] Ordered By: Renato Kumar on 11-15-2023 Platelets (Bld) [#/Vol] 287 10*3/uL 150-450 [facility] Potassium [Moles/volume] in Serum or PlasmaOrdered By: Renato Kumar on 11-15-2023 Potassium [Moles/Vol] 4.0 mmol/L 3.5-5.1 [facility] Protein Auto test strip (U) [Mass/Vol]Ordered By: Renato Kumar on 11-15-2023 Protein (U) [Mass/Vol] Negative Negative [facility] Protein [Mass/volume] in Ser um or PlasmaOrdered By: Renato Kumar on 11-15-2023 Protein [Mass/Vol] 6.6 g/dL 6.4-8.9 [facility] RBC Auto (Bld) [#/Vol]Ordere d By: Renato Kumar on 11-15-2023 RBC (Bld) [#/Vol] 4.99 10*6/uL 3.60-5.00 [facility] Serum or plasma albumin/glob ulin mass ratioOrdered By: Renato Kumar on 11-15-2023 Albumin/Globulin [Mass ratio] 1.5 {ratio} [facility] Serum or plasma anion gap de terminationOrdered By: Renato Kumar on 11-15-2023 Anion gap [Moles/Vol] 8.0 mmol/L 6.0-15.0 [facility] Sodium [Moles/volume] in Ser um or PlasmaOrdered By: Renato Kumar on 11-15-2023 Sodium [Moles/Vol] 139 mmol/L 136-145 [facility] Specific gravity Auto test s trip (U) [Rel density]Ordered By: Renato Kumar on 11-15-2023 Specific gravity (U) [Rel density] 1.026 1.001-1.03 0 [facility] Urea nitrogen [Mass/volume] in Serum or PlasmaOrdered By: Renato Kumar on 11-15-2023 Urea nitrogen [Mass/Vol] 17 mg/dL 7-25 [facility] Urine clarity by refractomet ry automatedOrdered By: Renato Kumar on 11-15-2023 Clarity Refractometry automated (U) Clear Clear [facility] Urine glucose measurement by automated test strip (mass/volume)Ordered By: Renato Kumar on 11-15-2023 Glucose Auto test strip (U) [Mass/Vol] Normal mg/dL Normal [facility] Urine hemoglobin detection b y automated test stripOrdered By: Renato Kumar on 11-15-2023 Hemoglobin Auto test strip Ql (U) Negative Negative [facility] Urine leukocyte esterase det ection by automated test stripOrdered By: Renato Kumar on 11-15-2023 Leukocyte esterase Auto test strip Ql (U) Negative Negative [facility] Urobilinogen Auto test strip (U) [Mass/Vol]Ordered By: Renato Kumar on 11-15-2023 Urobilinogen (U) [Mass/Vol] Normal mg/dL Normal [facility] WBC Auto (Bld) [#/Vol]Ordere d By: Renato Kumar on 11-15-2023 WBC (Bld) [#/Vol] 12.5 10*3/uL 3.8-11.6 [facility] pH Auto test strip (U)Ordere d By: Renato Kumar on 11-15-2023 pH (U) 6.5 [pH] 5.0-9.0 [facility] COVID CepheidOrdered By: Mildred Vang on 08-04-2023 SARS-CoV-2 (COVID-19) Ab IA Ql Negative Negative [facility] Comment on above: This is a duplicate CepTurpitudeid Xpert Xpress CoV-2/Flu/RSV Plus RNA by RT-PCR result to be used for statistical tracking purpose only. SARS-CoV-2 (COVID-19) RNA JUDIT+probe Ql (Unsp spec) [facility] Basophils Auto (Bld) [#/Vol] Ordered By: Mark Bar on 05-12-2023 Basophils (Bld) [#/Vol] 0.1 10*3/uL 0.0-0.2 [facility] Basophils/100 WBC Auto (Bld) Ordered By: Mark Bar on 05-12-2023 Basophils/100 WBC (Bld) 1.3 % . [facility] COVID-19 SOFIAOrdered By: Ismael Bar on 05-12-2023 SARS-CoV+SARS-CoV-2 (COVID-19) Ag IA.rapid Ql (Resp) Negative Negative [facility] Comment on above: This is a duplicate Laura SARS Antigen (JESSICA) result to be used for statistical tracking purpose only. Calcium [Mass/volume] in Ser um or PlasmaOrdered By: Mark Bar on 05-12-2023 Calcium [Mass/Vol] 8.9 mg/dL 8.6-10.3 [facility] Carbon dioxide, total [Moles /volume] in Serum or PlasmaOrdered By: Mark Bar on 05-12-2023 CO2 [Moles/Vol] 24.0 mmol/L 21.0-31.0 [facility] Chloride [Moles/volume] in S gale or PlasmaOrdered By: Mark Bar on 05-12-2023 Chloride [Moles/Vol] 107 mmol/L 98-107 [facility] Creatinine [Mass/volume] in Serum or PlasmaOrdered By: Mark Bar on 05-12-2023 Creatinine [Mass/Vol] 0.55 mg/dL 0.60-1.20 [facility] Eosinophils Auto (Bld) [#/Vo l]Ordered By: Mark Bar on 05-12-2023 Eosinophils (Bld) [#/Vol] 0.1 10*3/uL 0.0-0.45 [facility] Eosinophils/100 WBC Auto (Bl d)Ordered By: Mark Bar on 05-12-2023 Eosinophils/100 WBC (Bld) 1.0 % . [facility] Erythrocyte distribution wid th Auto (RBC) [Ratio]Ordered By: Mark Bar on 05-12-2023 Erythrocyte distribution width (RBC) [Ratio] 15.5 % 11.9-15.3 [facility] Glucose [Mass/volume] in Ser um or PlasmaOrdered By: Mark Bar on 05-12-2023 Glucose [Mass/Vol] 92 mg/dL 70-100 [facility] Comment on above: ADA recommended refe rence rangeRandom Glucose Reference Range is dependent on time and content of last meal. Glucose of more than 200 mg/dL in a nonstressed, ambulatory subject supports the diagnosis of Diabetes Mellitus. Hematocrit Auto (Bld) [Volum e fraction]Ordered By: Mark Bar on 05-12-2023 Hematocrit (Bld) [Volume fraction] 45.7 % 34.0-46.4 [facility] Hemoglobin [Mass/volume] in BloodOrdered By: Mark Bar on 05-12-2023 Hemoglobin (Bld) [Mass/Vol] 15.2 g/dL 11.8-15.4 [facility] Leukocytes [#/volume] correc taurus for nucleated erythrocytes in Blood by Automated counOrdered By: Mark Bar on 05-12-2023 WBC corrected for nucl RBC Auto (Bld) [#/Vol] 9.9 10*3/uL 3.8-11.6 [facility] Lymphocytes Auto (Bld) [#/Vo l]Ordered By: Mark Bar on 05-12-2023 Lymphocytes (Bld) [#/Vol] 2.2 10*3/uL 1.00-4.8 [facility] Lymphocytes/100 WBC Auto (Bl d)Ordered By: Mark Bar on 05-12-2023 Lymphocytes/100 WBC (Bld) 22.4 % . [facility] MCH Auto (RBC) [Entitic mass ]Ordered By: Mark Bar on 05-12-2023 MCH (RBC) [Entitic mass] 27.9 pg 24.7-34.3 [facility] MCHC Auto (RBC) [Mass/Vol]Or dered By: Mark Bar on 05-12-2023 MCHC (RBC) [Mass/Vol] 33.2 g/dL 32.0-35.0 [facility] MCV Auto (RBC) [Entitic vol] Ordered By: Mark Bar on 05-12-2023 MCV (RBC) [Entitic vol] 84.1 fL 80-100 [facility] Monocyte distribution width [Entitic volume] in Blood by AutomatedOrdered By: Mark Bar on 05-12-2023 Monocyte distribution width Auto (Bld) [Entitic vol] 19.20 % 0.00-20.00 [facility] Monocytes Auto (Bld) [#/Vol] Ordered By: Mark Bar on 05-12-2023 Monocytes (Bld) [#/Vol] 0.6 10*3/uL 0.0-0.8 [facility] Monocytes/100 WBC Auto (Bld) Ordered By: Mark Bar on 05-12-2023 Monocytes/100 WBC (Bld) 5.7 % . [facility] Neutrophils Auto (Bld) [#/Vo l]Ordered By: Mark Bar on 05-12-2023 Neutrophils (Bld) [#/Vol] 6.9 10*3/uL 1.8-7.7 [facility] Neutrophils/100 WBC Auto (Bl d)Ordered By: Mark Bar on 05-12-2023 Neutrophils/100 WBC (Bld) 69.6 % . [facility] No Panel InformationOrdered By: Mark Bar on 05-12-2023 Estimated GFR (CKD-EPI) > 60.0 mL/Min [facility]acy Creatinine Clearance (Chem 177.95 [facility] SARS Antigen (LFIA) [facility] Nucleated erythrocytes [Pres ence] in Blood by Automated countOrdered By: Mark Bar on 05-12-2023 Nucleated RBC Auto Ql (Bld) 0.1 /100{WBC} 0-0.5 [facility] Platelet adequacy [Presence] in Blood by Light microscopyOrdered By: Mark Bar on 05-12-2023 Platelets LM Ql (Bld) Normal Normal [facility] Platelet mean volume Auto (B ld) [Entitic vol]Ordered By: Mark Bar on 05-12-2023 Platelet mean volume (Bld) [Entitic vol] 9.9 fL 6.3-10.7 [facility] Platelet morphology finding [Identifier] in BloodOrdered By: Mark Bar on 05-12-2023 Platelet morphology finding Nom (Bld) N/A [facility] Platelets Auto (Bld) [#/Vol] Ordered By: Mark Bar on 05-12-2023 Platelets (Bld) [#/Vol] 245 10*3/uL 150-450 [facility] Platelets Large [Presence] i n Blood by Light microscopyOrdered By: Mark Bar on 05-12-2023 Platelets Large LM Ql (Bld) Slight [facility] Potassium [Moles/volume] in Serum or PlasmaOrdered By: Mark Bar on 05-12-2023 Potassium [Moles/Vol] 4.1 mmol/L 3.5-5.1 [facility] RBC Auto (Bld) [#/Vol]Ordere d By: Mrak Bar on 05-12-2023 RBC (Bld) [#/Vol] 5.44 10*6/uL 3.60-5.00 [facility] RBC morphologyOrdered By: Ismael Bar on 05-12-2023 RBC morphology finding Nom (Bld) Normal Normal [facility] Serum or plasma anion gap de terminationOrdered By: Mark Bar on 05-12-2023 Anion gap [Moles/Vol] 11.1 mmol/L 6.0-15.0 [facility] Sodium [Moles/volume] in Ser um or PlasmaOrdered By: Mark Bar on 05-12-2023 Sodium [Moles/Vol] 138 mmol/L 136-145 [facility] Troponin I.cardiac [Mass/vol ume] in Serum or Plasma by Detection limit <= 0.01 ng/Ordered By: Mark Bar on 05-12-2023 Troponin I.cardiac DL <= 0.01 ng/mL [Mass/Vol] 2.8 pg/mL 0.0-15.0 [facility] Urea nitrogen [Mass/volume] in Serum or PlasmaOrdered By: Mark Bar on 05-12-2023 Urea nitrogen [Mass/Vol] 14 mg/dL 7-25 [facility] WBC Auto (Bld) [#/Vol]Ordere d By: Mark Bar on 05-12-2023 WBC (Bld) [#/Vol] 9.9 10*3/uL 3.8-11.6 [facility] Alanine aminotransferase [En zymatic activity/volume] in Serum or PlasmaOrdered By: Jah Almonte on 03-05-2023 ALT [Catalytic activity/Vol] 17 U/L 7-52 [facility] Albumin [Mass/volume] in Ser um or Plasma by Bromocresol green (BCG) dye binding methoOrdered By: Jah Almonte on 03-05-2023 Albumin BCG dye [Mass/Vol] 4.2 g/dL 3.5-5.7 [facility] Alkaline phosphatase [Enzyma tic activity/volume] in Serum or PlasmaOrdered By: Jah Almonte on 03-05-2023 ALP [Catalytic activity/Vol] 87 U/L 34-104 [facility] Aspartate aminotransferase [ Enzymatic activity/volume] in Serum or PlasmaOrdered By: Jah Almonte on 03-05-2023 AST [Catalytic activity/Vol] 14 U/L 13-39 [facility] Basophils Auto (Bld) [#/Vol] Ordered By: Jah Almonte on 03-05-2023 Basophils (Bld) [#/Vol] 0.1 10*3/uL 0.0-0.2 [facility] Basophils/100 WBC Auto (Bld) Ordered By: Jah Almonte on 03-05-2023 Basophils/100 WBC (Bld) 0.9 % . [facility] Bilirubin.total [Mass/volume ] in Serum or PlasmaOrdered By: Jah Almonte on 03-05-2023 Bilirubin [Mass/Vol] 0.3 mg/dL 0.3-1.0 [facility] Calcium [Mass/volume] in Ser um or PlasmaOrdered By: Jah Almonte on 03-05-2023 Calcium [Mass/Vol] 8.7 mg/dL 8.6-10.3 [facility] Carbon dioxide, total [Moles /volume] in Serum or PlasmaOrdered By: Jah Almonte on 03-05-2023 CO2 [Moles/Vol] 25.5 mmol/L 21.0-31.0 [facility] Chloride [Moles/volume] in S gale or PlasmaOrdered By: Jah Almonte on 03-05-2023 Chloride [Moles/Vol] 107 mmol/L 98-107 [facility] Creatinine [Mass/volume] in Serum or PlasmaOrdered By: Jah Almonte on 03-05-2023 Creatinine [Mass/Vol] 0.60 mg/dL 0.60-1.20 [facility] Eosinophils Auto (Bld) [#/Vo l]Ordered By: Jah Almonte on 03-05-2023 Eosinophils (Bld) [#/Vol] 0.1 10*3/uL 0.0-0.45 [facility] Eosinophils/100 WBC Auto (Bl d)Ordered By: Jah Almonte on 03-05-2023 Eosinophils/100 WBC (Bld) 0.9 % . [facility] Erythrocyte distribution wid th Auto (RBC) [Ratio]Ordered By: Jah Almonte on 03-05-2023 Erythrocyte distribution width (RBC) [Ratio] 17.6 % 11.9-15.3 [facility] Globulin Calc (S) [Mass/Vol] Ordered By: Jah Almonte on 03-05-2023 Globulin (S) [Mass/Vol] 2.6 g/dL [facility] Glucose [Mass/volume] in Ser um or PlasmaOrdered By: Jha Almonte on 03-05-2023 Glucose [Mass/Vol] 109 mg/dL 70-100 [facility] Comment on above: ADA recommended refe rence rangeRandom Glucose Reference Range is dependent on time and content of last meal. Glucose of more than 200 mg/dL in a nonstressed, ambulatory subject supports the diagnosis of Diabetes Mellitus. Hematocrit Auto (Bld) [Volum e fraction]Ordered By: Jah Almonte on 03-05-2023 Hematocrit (Bld) [Volume fraction] 41.9 % 34.0-46.4 [facility] Hemoglobin [Mass/volume] in BloodOrdered By: Jah Almonte on 03-05-2023 Hemoglobin (Bld) [Mass/Vol] 13.7 g/dL 11.8-15.4 [facility] Leukocytes [#/volume] correc taurus for nucleated erythrocytes in Blood by Automated counOrdered By: Jah Almonte on 03-05-2023 WBC corrected for nucl RBC Auto (Bld) [#/Vol] 13.7 10*3/uL 3.8-11.6 [facility] Lymphocytes Auto (Bld) [#/Vo l]Ordered By: Jah Almonte on 03-05-2023 Lymphocytes (Bld) [#/Vol] 2.6 10*3/uL 1.00-4.8 [facility] Lymphocytes/100 WBC Auto (Bl d)Ordered By: Jah Almonte on 03-05-2023 Lymphocytes/100 WBC (Bld) 18.9 % . [facility] MCH Auto (RBC) [Entitic mass ]Ordered By: Jah Almonte on 03-05-2023 MCH (RBC) [Entitic mass] 26.7 pg 24.7-34.3 [facility] MCHC Auto (RBC) [Mass/Vol]Or dered By: Jah Almonte on 03-05-2023 MCHC (RBC) [Mass/Vol] 32.7 g/dL 32.0-35.0 [facility] MCV Auto (RBC) [Entitic vol] Ordered By: Jah Almonte on 03-05-2023 MCV (RBC) [Entitic vol] 81.6 fL 80-100 [facility] Magnesium [Mass/volume] in S gale or PlasmaOrdered By: Jah Almonte on 03-05-2023 Magnesium [Mass/Vol] 1.9 mg/dL 1.9-2.7 [facility] Monocyte distribution width [Entitic volume] in Blood by AutomatedOrdered By: Jah Almonte on 03-05-2023 Monocyte distribution width Auto (Bld) [Entitic vol] 16.68 % 0.00-20.00 [facility] Monocytes Auto (Bld) [#/Vol] Ordered By: Jah Almonte on 03-05-2023 Monocytes (Bld) [#/Vol] 0.7 10*3/uL 0.0-0.8 [facility] Monocytes/100 WBC Auto (Bld) Ordered By: Jah Almonte on 03-05-2023 Monocytes/100 WBC (Bld) 5.1 % . [facility] Neutrophils Auto (Bld) [#/Vo l]Ordered By: Jah Almonte on 03-05-2023 Neutrophils (Bld) [#/Vol] 10.2 10*3/uL 1.8-7.7 [facility] Neutrophils/100 WBC Auto (Bl d)Ordered By: Jah Almonte on 03-05-2023 Neutrophils/100 WBC (Bld) 74.2 % . [facility] No Panel InformationOrdered By: Jah Almonte on 03-05-2023 Estimated GFR (CKD-EPI) > 60.0 mL/Min [facility] Creatinine Clearance (Chem 162.80 [facility] Nucleated erythrocytes [Pres ence] in Blood by Automated countOrdered By: Jah Almonte on 03-05-2023 Nucleated RBC Auto Ql (Bld) 0.0 /100{WBC} 0-0.5 [facility] Platelet adequacy [Presence] in Blood by Light microscopyOrdered By: Jah Almonte on 03-05-2023 Platelets LM Ql (Bld) Normal Normal [facility] Platelet mean volume Auto (B ld) [Entitic vol]Ordered By: Jah Almonte on 03-05-2023 Platelet mean volume (Bld) [Entitic vol] 9.5 fL 6.3-10.7 [facility] Platelet morphology finding [Identifier] in BloodOrdered By: Jah Almonte on 03-05-2023 Platelet morphology finding Nom (Bld) Normal Normal [facility] Platelets Auto (Bld) [#/Vol] Ordered By: Jah Almonte on 03-05-2023 Platelets (Bld) [#/Vol] 256 10*3/uL 150-450 [facility] Potassium [Moles/volume] in Serum or PlasmaOrdered By: Jah Almonte on 03-05-2023 Potassium [Moles/Vol] 3.4 mmol/L 3.5-5.1 [facility] Protein [Mass/volume] in Ser um or PlasmaOrdered By: Jah Almonte on 03-05-2023 Protein [Mass/Vol] 6.8 g/dL 6.4-8.9 [facility] RBC Auto (Bld) [#/Vol]Ordere d By: Jah Almonte on 03-05-2023 RBC (Bld) [#/Vol] 5.13 10*6/uL 3.60-5.00 [facility] RBC morphologyOrdered By: Cali Almonte on 03-05-2023 RBC morphology finding Nom (Bld) Normal Normal [facility] Serum or plasma albumin/glob ulin mass ratioOrdered By: Jah Almonte on 03-05-2023 Albumin/Globulin [Mass ratio] 1.6 {ratio} [facility] Serum or plasma anion gap de terminationOrdered By: Jah Almonte on 03-05-2023 Anion gap [Moles/Vol] 9.9 mmol/L 6.0-15.0 [facility] Sodium [Moles/volume] in Ser um or PlasmaOrdered By: Jah Almonte on 03-05-2023 Sodium [Moles/Vol] 139 mmol/L 136-145 [facility] Urea nitrogen [Mass/volume] in Serum or PlasmaOrdered By: Jah Almonte on 03-05-2023 Urea nitrogen [Mass/Vol] 15 mg/dL 7-25 [facility] WBC Auto (Bld) [#/Vol]Ordere d By: Jah Almonte on 03-05-2023 WBC (Bld) [#/Vol] 13.7 10*3/uL 3.8-11.6 [facility] Activated partial thrombopla stin time (aPTT) in platelet poor plasma by coagulation aOrdered By: Farhat Castro on 02-05-2023 aPTT Coag (PPP) [Time] 29.9 s 25.1-36.5 [facility] Anisocytosis LM Ql (Bld)Orde red By: Farhat Castro on 02-05-2023 Anisocytosis Ql (Bld) Marked [facility] Basophils Auto (Bld) [#/Vol] Ordered By: Farhat Castro on 02-05-2023 Basophils (Bld) [#/Vol] 0.1 10*3/uL 0.0-0.2 [facility] Basophils/100 WBC Auto (Bld) Ordered By: Farhat Castro on 02-05-2023 Basophils/100 WBC (Bld) 0.9 % . [facility] COVID CepheidOrdered By: Grace Castro on 02-05-2023 SARS-CoV-2 (COVID-19) Ab IA Ql Negative Negative [facility] Comment on above: This is a duplicate Cepheid Xpert Xpress CoV-2/Flu/RSV Plus RNA by RT-PCR result to be used for statistical tracking purpose only. SARS-CoV-2 (COVID-19) RNA JUDIT+probe Ql (Unsp spec) [facility] Calcium [Mass/volume] in Ser um or PlasmaOrdered By: Farhat Castro on 02-05-2023 Calcium [Mass/Vol] 9.2 mg/dL 8.6-10.3 [facility] Carbon dioxide, total [Moles /volume] in Serum or PlasmaOrdered By: Farhat Castro on 02-05-2023 CO2 [Moles/Vol] 23.5 mmol/L 21.0-31.0 [facility] Chloride [Moles/volume] in S gale or PlasmaOrdered By: Farhat Castro on 02-05-2023 Chloride [Moles/Vol] 107 mmol/L 98-107 [facility] Creatine kinase [Enzymatic a ctivity/volume] in Serum or PlasmaOrdered By: Farhat Castro on 02-05-2023 CK [Catalytic activity/Vol] 53 U/L 30-223 [facility] Creatinine [Mass/volume] in Serum or PlasmaOrdered By: Farhat Castro on 02-05-2023 Creatinine [Mass/Vol] 0.55 mg/dL 0.60-1.20 [facility] Eosinophils Auto (Bld) [#/Vo l]Ordered By: Farhat Castro on 02-05-2023 Eosinophils (Bld) [#/Vol] 0.1 10*3/uL 0.0-0.45 [facility] Eosinophils/100 WBC Auto (Bl d)Ordered By: Farhat Castro on 02-05-2023 Eosinophils/100 WBC (Bld) 0.8 % . [facility] Erythrocyte distribution wid th Auto (RBC) [Ratio]Ordered By: Farhat Castro on 02-05-2023 Erythrocyte distribution width (RBC) [Ratio] 18.2 % 11.9-15.3 [facility] Glucose [Mass/volume] in Ser um or PlasmaOrdered By: Farhat Castro on 02-05-2023 Glucose [Mass/Vol] 104 mg/dL 70-100 [facility] Comment on above: ADA recommended refe rence rangeRandom Glucose Reference Range is dependent on time and content of last meal. Glucose of more than 200 mg/dL in a nonstressed, ambulatory subject supports the diagnosis of Diabetes Mellitus. Hematocrit Auto (Bld) [Volum e fraction]Ordered By: Farhat Castro on 02-05-2023 Hematocrit (Bld) [Volume fraction] 43.5 % 34.0-46.4 [facility] Hemoglobin [Mass/volume] in BloodOrdered By: Farhat Castro on 02-05-2023 Hemoglobin (Bld) [Mass/Vol] 13.9 g/dL 11.8-15.4 [facility] Laboratory - CoagulationOrde red By: Farhat Castro on 02-05-2023 PT Coag (PPP) [Time] 11.5 s 9.0-12.9 [facility] Leukocytes [#/volume] correc taurus for nucleated erythrocytes in Blood by Automated counOrdered By: Farhat Castro on 02-05-2023 WBC corrected for nucl RBC Auto (Bld) [#/Vol] 13.3 10*3/uL 3.8-11.6 [facility] Lymphocytes Auto (Bld) [#/Vo l]Ordered By: Farhat Castro on 02-05-2023 Lymphocytes (Bld) [#/Vol] 2.5 10*3/uL 1.00-4.8 [facility] Lymphocytes/100 WBC Auto (Bl d)Ordered By: Farhat Castro on 02-05-2023 Lymphocytes/100 WBC (Bld) 18.5 % . [facility] MCH Auto (RBC) [Entitic mass ]Ordered By: Farhat Castro on 02-05-2023 MCH (RBC) [Entitic mass] 25.5 pg 24.7-34.3 [facility] MCHC Auto (RBC) [Mass/Vol]Or dered By: Farhat Castro on 02-05-2023 MCHC (RBC) [Mass/Vol] 32.0 g/dL 32.0-35.0 [facility] MCV Auto (RBC) [Entitic vol] Ordered By: Farhat Castro on 02-05-2023 MCV (RBC) [Entitic vol] 79.8 fL 80-100 [facility] Microcytes LM Ql (Bld)Ordere d By: Farhat Castro on 02-05-2023 Microcytes Ql (Bld) Slight [facility] Monocyte distribution width [Entitic volume] in Blood by AutomatedOrdered By: Farhat Castro on 02-05-2023 Monocyte distribution width Auto (Bld) [Entitic vol] 17.41 % 0.00-20.00 [facility] Monocytes Auto (Bld) [#/Vol] Ordered By: Farhat Castro on 02-05-2023 Monocytes (Bld) [#/Vol] 0.7 10*3/uL 0.0-0.8 [facility] Monocytes/100 WBC Auto (Bld) Ordered By: Farhat Castro on 02-05-2023 Monocytes/100 WBC (Bld) 5.6 % . [facility] Natriuretic peptide B [Mass/ Vol]Ordered By: Farhat Castro on 02-05-2023 Natriuretic peptide B (Bld) [Mass/Vol] 23.0 pg/mL 5-100 [facility] Neutrophils Auto (Bld) [#/Vo l]Ordered By: Farhat Castro on 02-05-2023 Neutrophils (Bld) [#/Vol] 9.9 10*3/uL 1.8-7.7 [facility] Neutrophils/100 WBC Auto (Bl d)Ordered By: Farhat Castro on 02-05-2023 Neutrophils/100 WBC (Bld) 74.2 % . [facility] No Panel InformationOrdered By: Farhat Castro on 02-05-2023 Estimated GFR (CKD-EPI) > 60.0 mL/Min [facility] Creatinine Clearance (Chem 175.68 [facility] Nucleated erythrocytes [Pres ence] in Blood by Automated countOrdered By: Farhat Castro on 02-05-2023 Nucleated RBC Auto Ql (Bld) 0.1 /100{WBC} 0-0.5 [facility] Platelet adequacy [Presence] in Blood by Light microscopyOrdered By: Farhat Castro on 02-05-2023 Platelets LM Ql (Bld) Normal Normal [facility] Platelet mean volume Auto (B ld) [Entitic vol]Ordered By: Farhat Castro on 02-05-2023 Platelet mean volume (Bld) [Entitic vol] 9.8 fL 6.3-10.7 [facility] Platelet morphology finding [Identifier] in BloodOrdered By: Farhat Castro on 02-05-2023 Platelet morphology finding Nom (Bld) Normal Normal [facility] Platelet poor plasma interna tional normalized ratio (INR) by coagulation assay (relatOrdered By: Farhat Castro on 02-05-2023 INR Coag (PPP) [Relative time] 1.0 {INR} [facility] [facility] Comment on above: INR Therapeutic Rang e [...] 02-05-2023 Platelets (Bld) [#/Vol] 240 10*3/uL 150-450 [facility] Potassium [Moles/volume] in Serum or PlasmaOrdered By: Farhat Castro on 02-05-2023 Potassium [Moles/Vol] 4.4 mmol/L 3.5-5.1 [facility] RBC Auto (Bld) [#/Vol]Ordere d By: Farhat Castro on 02-05-2023 RBC (Bld) [#/Vol] 5.45 10*6/uL 3.60-5.00 [facility] RBC morphologyOrdered By: Simone Castro on 02-05-2023 RBC morphology finding Nom (Bld) N/A [facility] Serum or plasma anion gap de terminationOrdered By: Farhat Castro on 02-05-2023 Anion gap [Moles/Vol] 10.9 mmol/L 6.0-15.0 [facility] Sodium [Moles/volume] in Ser um or PlasmaOrdered By: Farhat Castro on 02-05-2023 Sodium [Moles/Vol] 137 mmol/L 136-145 [facility] Troponin I.cardiac [Mass/vol ume] in Serum or Plasma by Detection limit <= 0.01 ng/Ordered By: Farhat Castro on 02-05-2023 Troponin I.cardiac DL <= 0.01 ng/mL [Mass/Vol] 4.0 pg/mL 0.0-15.0 [facility] Urea nitrogen [Mass/volume] in Serum or PlasmaOrdered By: Farhat Castro on 02-05-2023 Urea nitrogen [Mass/Vol] 16 mg/dL 7-25 [facility] WBC Auto (Bld) [#/Vol]Ordere d By: Farhat Castro on 02-05-2023 WBC (Bld) [#/Vol] 13.3 10*3/uL 3.8-11.6 [facility] Bilirubin Test strip Ql (U)O rdered By: Damien Rashid on 01-15-2023 Bilirubin Ql (U) Negative Negative [facility] Color Auto (U)Ordered By: Ismael Rashid on 01-15-2023 Color (U) Yellow Yellow [facility] HCG ( test) IA.rapi d Ql (U)Ordered By: Damien Rashid on 01-15-2023 HCG ( test) Ql (U) Negative [facility] Ketones Auto test strip (U) [Mass/Vol]Ordered By: Damien Rashid on 01-15-2023 Ketones (U) [Mass/Vol] Negative Negative [facility] Nitrite Test strip Ql (U)Ord ered By: Damien Rashid on 01-15-2023 Nitrite Ql (U) Negative Negative [facility] Potassium [Moles/volume] in Serum or PlasmaOrdered By: Damien Rashid on 01-15-2023 Potassium [Moles/Vol] 3.6 mmol/L 3.5-5.1 [facility] Protein Auto test strip (U) [Mass/Vol]Ordered By: Damien Rashid on 01-15-2023 Protein (U) [Mass/Vol] Negative Negative [facility] Specific gravity Auto test s trip (U) [Rel density]Ordered By: Damien Rashid on 01-15-2023 Specific gravity (U) [Rel density] 1.017 1.001-1.03 0 [facility] Troponin I.cardiac [Mass/vol ume] in Serum or Plasma by Detection limit <= 0.01 ng/Ordered By: Damien Rashid on 01-15-2023 Troponin I.cardiac DL <= 0.01 ng/mL [Mass/Vol] 3.7 pg/mL 0.0-15.0 [facility] Urine clarity by refractomet ry automatedOrdered By: Damien Rashid on 01-15-2023 Clarity Refractometry automated (U) Clear Clear [facility] Urine glucose measurement by automated test strip (mass/volume)Ordered By: Damien Rashid on 01-15-2023 Glucose Auto test strip (U) [Mass/Vol] Normal mg/dL Normal [facility] Urine hemoglobin detection b y automated test stripOrdered By: Damien Rashid on 01-15-2023 Hemoglobin Auto test strip Ql (U) Negative Negative [facility] Urine leukocyte esterase det ection by automated test stripOrdered By: Damien Rashid on 01-15-2023 Leukocyte esterase Auto test strip Ql (U) Negative Negative [facility] Urobilinogen Auto test strip (U) [Mass/Vol]Ordered By: Damien Rashid on 01-15-2023 Urobilinogen (U) [Mass/Vol] Normal mg/dL Normal [facility] pH Auto test strip (U)Ordere d By: Damien Rashid on 01-15-2023 pH (U) 6.0 [pH] 5.0-9.0 [facility] Activated partial thrombopla stin time (aPTT) in platelet poor plasma by coagulation aOrdered By: Damien Rashid on 01-14-2023 aPTT Coag (PPP) [Time] 31.3 s 25.1-36.5 [facility] Basophils Auto (Bld) [#/Vol] Ordered By: Damien Rashid on 01-14-2023 Basophils (Bld) [#/Vol] 0.1 10*3/uL 0.0-0.2 [facility] Basophils/100 WBC Auto (Bld) Ordered By: Damien Rashid on 01-14-2023 Basophils/100 WBC (Bld) 1.0 % . [facility] Calcium [Mass/volume] in Ser um or PlasmaOrdered By: Damien Rashid on 01-14-2023 Calcium [Mass/Vol] 9.1 mg/dL 8.6-10.3 [facility] Carbon dioxide, total [Moles /volume] in Serum or PlasmaOrdered By: Damien Rashid on 01-14-2023 CO2 [Moles/Vol] 24.4 mmol/L 21.0-31.0 [facility] Chloride [Moles/volume] in S gale or PlasmaOrdered By: Damien Rashid on 01-14-2023 Chloride [Moles/Vol] 105 mmol/L 98-107 [facility] Creatinine [Mass/volume] in Serum or PlasmaOrdered By: Damien Rashid on 01-14-2023 Creatinine [Mass/Vol] 0.61 mg/dL 0.60-1.20 [facility] Eosinophils Auto (Bld) [#/Vo l]Ordered By: Damien Rashid on 01-14-2023 Eosinophils (Bld) [#/Vol] 0.1 10*3/uL 0.0-0.45 [facility] Eosinophils/100 WBC Auto (Bl d)Ordered By: Damien Rashid on 01-14-2023 Eosinophils/100 WBC (Bld) 0.8 % . [facility] Erythrocyte distribution wid th Auto (RBC) [Ratio]Ordered By: Damien Rashid on 01-14-2023 Erythrocyte distribution width (RBC) [Ratio] 18.9 % 11.9-15.3 [facility] Glucose [Mass/volume] in Ser um or PlasmaOrdered By: Damien Rashid on 01-14-2023 Glucose [Mass/Vol] 91 mg/dL 74-109 [facility] Comment on above: ADA recommended refe rence rangeRandom Glucose Reference Range is dependent on time and content of last meal. Glucose of more than 200 mg/dL in a nonstressed, ambulatory subject supports the diagnosis of Diabetes Mellitus. Hematocrit Auto (Bld) [Volum e fraction]Ordered By: Damien Rashid on 01-14-2023 Hematocrit (Bld) [Volume fraction] 42.9 % 34.0-46.4 [facility] Hemoglobin [Mass/volume] in BloodOrdered By: Damien Rashid on 01-14-2023 Hemoglobin (Bld) [Mass/Vol] 14.0 g/dL 11.8-15.4 [facility] Laboratory - Chemistry and C hemistry - challengeOrdered By: Damien Rashid on 01-14-2023 GFR/1.73 sq M.predicted MDRD (S/P/Bld) [Vol rate/Area] mL/min/{1.73_m2} [facility] Laboratory - CoagulationOrde red By: Damien Rashid on 01-14-2023 PT Coag (PPP) [Time] 12.2 s 9.0-12.9 [facility] Leukocytes [#/volume] correc taurus for nucleated erythrocytes in Blood by Automated counOrdered By: Damien Rashid on 01-14-2023 WBC corrected for nucl RBC Auto (Bld) [#/Vol] 11.7 10*3/uL 3.8-11.6 [facility] Lymphocytes Auto (Bld) [#/Vo l]Ordered By: Damien Rashid on 01-14-2023 Lymphocytes (Bld) [#/Vol] 2.9 10*3/uL 1.00-4.8 [facility] Lymphocytes/100 WBC Auto (Bl d)Ordered By: Damien Rashid on 01-14-2023 Lymphocytes/100 WBC (Bld) 24.4 % . [facility] MCH Auto (RBC) [Entitic mass ]Ordered By: Damien Rashid on 01-14-2023 MCH (RBC) [Entitic mass] 25.7 pg 24.7-34.3 [facility] MCHC Auto (RBC) [Mass/Vol]Or dered By: Damien Rashid on 01-14-2023 MCHC (RBC) [Mass/Vol] 32.7 g/dL 32.0-35.0 [facility] MCV Auto (RBC) [Entitic vol] Ordered By: Damien Rashid on 01-14-2023 MCV (RBC) [Entitic vol] 78.7 fL 80-100 [facility] Monocyte distribution width [Entitic volume] in Blood by AutomatedOrdered By: Damien Rashid on 01-14-2023 Monocyte distribution width Auto (Bld) [Entitic vol] 21.82 % 0.00-20.00 [facility] Comment on above: For adults in ED, MD W > 20.0 may be associated with a higher risk of sepsis during the first 12 hrs of hospital admission Monocytes Auto (Bld) [#/Vol] Ordered By: Damien Rashid on 01-14-2023 Monocytes (Bld) [#/Vol] 0.8 10*3/uL 0.0-0.8 [facility] Monocytes/100 WBC Auto (Bld) Ordered By: Damien Rashid on 01-14-2023 Monocytes/100 WBC (Bld) 6.8 % . [facility] Natriuretic peptide B [Mass/ Vol]Ordered By: Damien Rashid on 01-14-2023 Natriuretic peptide B (Bld) [Mass/Vol] 6.0 pg/mL 5-100 [facility] Neutrophils Auto (Bld) [#/Vo l]Ordered By: Damien Rashid on 01-14-2023 Neutrophils (Bld) [#/Vol] 7.9 10*3/uL 1.8-7.7 [facility] Neutrophils/100 WBC Auto (Bl d)Ordered By: Damien Rashid on 01-14-2023 Neutrophils/100 WBC (Bld) 67.0 % . [facility] No Panel InformationOrdered By: Damien Rashid on 01-14-2023 Pharmacy Creatinine Clearance (Chem 158.87 [facility] Nucleated erythrocytes [Pres ence] in Blood by Automated countOrdered By: Damien Rashid on 01-14-2023 Nucleated RBC Auto Ql (Bld) 0.2 /100{WBC} 0-0.5 [facility] Platelet mean volume Auto (B ld) [Entitic vol]Ordered By: Damien Rashid on 01-14-2023 Platelet mean volume (Bld) [Entitic vol] 9.8 fL 6.3-10.7 [facility] Platelet poor plasma interna tional normalized ratio (INR) by coagulation assay (relatOrdered By: Damien Rashid on 01-14-2023 INR Coag (PPP) [Relative time] 1.0 {INR} [facility] Comment on above: INR Therapeutic Rang e [...] 01-14-2023 Platelets (Bld) [#/Vol] 254 10*3/uL 150-450 [facility] RBC Auto (Bld) [#/Vol]Ordere d By: Damien Rashid on 01-14-2023 RBC (Bld) [#/Vol] 5.44 10*6/uL 3.60-5.00 [facility] Serum or plasma anion gap de terminationOrdered By: Damien Rashid on 01-14-2023 Anion gap [Moles/Vol] N/A [facility] Sodium [Moles/volume] in Ser um or PlasmaOrdered By: Damien Rashid on 01-14-2023 Sodium [Moles/Vol] 138 mmol/L 136-145 [facility] Urea nitrogen [Mass/volume] in Serum or PlasmaOrdered By: Damien Rashid on 01-14-2023 Urea nitrogen [Mass/Vol] 16 mg/dL 7-25 [facility] WBC Auto (Bld) [#/Vol]Ordere d By: Damien Rashid on 01-14-2023 WBC (Bld) [#/Vol] 11.7 10*3/uL 3.8-11.6 [facility] Basophils Auto (Bld) [#/Vol] Ordered By: Larissa Resendiz on 01-11-2023 Basophils (Bld) [#/Vol] 0.1 10*3/uL 0.0-0.2 [facility] Basophils/100 WBC Auto (Bld) Ordered By: Larissa Resendiz on 01-11-2023 Basophils/100 WBC (Bld) 0.5 % . [facility] Eosinophils Auto (Bld) [#/Vo l]Ordered By: Larissa Resendiz on 01-11-2023 Eosinophils (Bld) [#/Vol] 0.1 10*3/uL 0.0-0.45 [facility] Eosinophils/100 WBC Auto (Bl d)Ordered By: Larissa Resendiz on 01-11-2023 Eosinophils/100 WBC (Bld) 1.0 % . [facility] Erythrocyte distribution wid th Auto (RBC) [Ratio]Ordered By: Larissa Resendiz on 01-11-2023 Erythrocyte distribution width (RBC) [Ratio] 19.5 % 11.9-15.3 [facility] Hematocrit Auto (Bld) [Volum e fraction]Ordered By: Larissa Resendiz on 01-11-2023 Hematocrit (Bld) [Volume fraction] 41.4 % 34.0-46.4 [facility] Hemoglobin [Mass/volume] in BloodOrdered By: Larissa Resendiz on 01-11-2023 Hemoglobin (Bld) [Mass/Vol] 13.3 g/dL 11.8-15.4 [facility] Leukocytes [#/volume] correc tuarus for nucleated erythrocytes in Blood by Automated counOrdered By: Larissa Resendiz on 01-11-2023 WBC corrected for nucl RBC Auto (Bld) [#/Vol] 12.9 10*3/uL 3.8-11.6 [facility] Lymphocytes Auto (Bld) [#/Vo l]Ordered By: Larissa Resendiz on 01-11-2023 Lymphocytes (Bld) [#/Vol] 2.9 10*3/uL 1.00-4.8 [facility] Lymphocytes/100 WBC Auto (Bl d)Ordered By: Larissa Resendiz on 01-11-2023 Lymphocytes/100 WBC (Bld) 22.7 % . [facility] MCH Auto (RBC) [Entitic mass ]Ordered By: Larissa Resendiz on 01-11-2023 MCH (RBC) [Entitic mass] 25.4 pg 24.7-34.3 [facility] MCHC Auto (RBC) [Mass/Vol]Or dered By: Larissa Resendiz on 01-11-2023 MCHC (RBC) [Mass/Vol] 32.3 g/dL 32.0-35.0 [facility] MCV Auto (RBC) [Entitic vol] Ordered By: Larissa Resendiz on 01-11-2023 MCV (RBC) [Entitic vol] 78.8 fL 80-100 [facility] Monocytes Auto (Bld) [#/Vol] Ordered By: Larissa Resendiz on 01-11-2023 Monocytes (Bld) [#/Vol] 0.5 10*3/uL 0.0-0.8 [facility] Monocytes/100 WBC Auto (Bld) Ordered By: Larissa Resendiz on 01-11-2023 Monocytes/100 WBC (Bld) 4.1 % . [facility] Neutrophils Auto (Bld) [#/Vo l]Ordered By: Larissa Resendiz on 01-11-2023 Neutrophils (Bld) [#/Vol] 9.2 10*3/uL 1.8-7.7 [facility] Neutrophils/100 WBC Auto (Bl d)Ordered By: Larissa Resendiz on 01-11-2023 Neutrophils/100 WBC (Bld) 71.7 % . [facility] Nucleated erythrocytes [Pres ence] in Blood by Automated countOrdered By: Larissa Resendiz on 01-11-2023 Nucleated RBC Auto Ql (Bld) 0.1 /100{WBC} 0-0.5 [facility] Platelet mean volume Auto (B ld) [Entitic vol]Ordered By: Larissa Resendiz on 01-11-2023 Platelet mean volume (Bld) [Entitic vol] 10.6 fL 6.3-10.7 [facility] Platelets Auto (Bld) [#/Vol] Ordered By: Larissa Resendiz on 01-11-2023 Platelets (Bld) [#/Vol] 250 10*3/uL 150-450 [facility] RBC Auto (Bld) [#/Vol]Ordere d By: Larissa Resendiz on 01-11-2023 RBC (Bld) [#/Vol] 5.25 10*6/uL 3.60-5.00 [facility] WBC Auto (Bld) [#/Vol]Ordere d By: Larissa Resendiz on 01-11-2023 WBC (Bld) [#/Vol] 12.9 10*3/uL 3.8-11.6 [facility] Alanine aminotransferase [En zymatic activity/volume] in Serum or PlasmaOrdered By: Jah Almonte on 01-10-2023 ALT [Catalytic activity/Vol] 16 U/L 7 [facility] Alanine aminotransferase [En zymatic activity/volume] in Serum or PlasmaOrdered By: Larissa Resendiz on 01-10-2023 ALT [Catalytic activity/Vol] 15 U/L 52 [facility] Albumin [Mass/volume] in Ser um or Plasma by Bromocresol green (BCG) dye binding methoOrdered By: Jah Almonte on 01-10-2023 Albumin BCG dye [Mass/Vol] 4.2 g/dL 3.5-5.7 [facility] Albumin [Mass/volume] in Ser um or Plasma by Bromocresol green (BCG) dye binding methoOrdered By: Larissa Resendiz on 01-10-2023 Albumin BCG dye [Mass/Vol] 4.1 g/dL 3.5-5.7 [facility] Alkaline phosphatase [Enzyma tic activity/volume] in Serum or PlasmaOrdered By: Jah Almonte on 01-10-2023 ALP [Catalytic activity/Vol] 94 U/L 34-104 [facility] Alkaline phosphatase [Enzyma tic activity/volume] in Serum or PlasmaOrdered By: Larissa Resendiz on 01-10-2023 ALP [Catalytic activity/Vol] 92 U/L 34-104 [facility] Aspartate aminotransferase [ Enzymatic activity/volume] in Serum or PlasmaOrdered By: Jah Almonte on 01-10-2023 AST [Catalytic activity/Vol] 14 U/L 13-39 [facility] Aspartate aminotransferase [ Enzymatic activity/volume] in Serum or PlasmaOrdered By: Larissa Resendiz on 01-10-2023 AST [Catalytic activity/Vol] 15 U/L 13-39 [facility] Basophils Auto (Bld) [#/Vol] Ordered By: Jah Almonte on 01-10-2023 Basophils (Bld) [#/Vol] 0.1 10*3/uL 0.0-0.2 [facility] Basophils/100 WBC Auto (Bld) Ordered By: Jah Almonte on 01-10-2023 Basophils/100 WBC (Bld) 0.8 % . [facility] Bilirubin Test strip Ql (U)O rdered By: Jah Almonte on 01-10-2023 Bilirubin Ql (U) Negative Negative [facility] Bilirubin.total [Mass/volume ] in Serum or PlasmaOrdered By: Jah Almonte on 01-10-2023 Bilirubin [Mass/Vol] 0.3 mg/dL 0.3-1.0 [facility] Bilirubin.total [Mass/volume ] in Serum or PlasmaOrdered By: Larissa Resendiz on 01-10-2023 Bilirubin [Mass/Vol] 0.2 mg/dL 0.3-1.0 [facility] Calcium [Mass/volume] in Ser um or PlasmaOrdered By: Jah Almonte on 01-10-2023 Calcium [Mass/Vol] 9.0 mg/dL 8.6-10.3 [facility] Calcium [Mass/volume] in Ser um or PlasmaOrdered By: Larissa Resendiz on 01-10-2023 Calcium [Mass/Vol] 8.9 mg/dL 8.6-10.3 [facility] Carbon dioxide, total [Moles /volume] in Serum or PlasmaOrdered By: Jah Almonte on 01-10-2023 CO2 [Moles/Vol] 25.8 mmol/L 21.0-31.0 [facility] Carbon dioxide, total [Moles /volume] in Serum or PlasmaOrdered By: Larissa Resendiz on 01-10-2023 CO2 [Moles/Vol] 22.9 mmol/L 21.0-31.0 [facility] Chloride [Moles/volume] in S gale or PlasmaOrdered By: Jah Almonte on 01-10-2023 Chloride [Moles/Vol] 105 mmol/L 98-107 [facility] Chloride [Moles/volume] in S gale or PlasmaOrdered By: Larissa Resendiz on 01-10-2023 Chloride [Moles/Vol] 104 mmol/L 98-107 [facility] Cholesterol [Mass/volume] in Serum or PlasmaOrdered By: Larissa Resendiz on 01-10-2023 Cholesterol [Mass/Vol] 213 mg/dL 140-200 [facility] Comment on above: Chol less than 200 m g/dl low riskChol 201-239 mg/dl borderline riskChol 240 mg/dl and greater high risk Cholesterol in LDL Calc [Mas s/Vol]Ordered By: Larissa Resendiz on 01-10-2023 Cholesterol in LDL [Mass/Vol] 141 mg/dL 0-100 [facility] Comment on above: LDL ATP III CLASSIFI CATIONLDL less than 100 mg/dL OptimalLDL 100-129 mg/dL Near or above optimalLDL 130-159 mg/dL Borderline highLDL 160-189 mg/dL HighLDL greater than 189 mg/dL Very high Cholesterol in VLDL Calc [Ma ss/Vol]Ordered By: Larissa Resendiz on 01-10-2023 Cholesterol in VLDL [Mass/Vol] 23 mg/dL [facility] Color Auto (U)Ordered By: Cali Almonte on 01-10-2023 Color (U) Yellow Yellow [facility] Creatinine [Mass/volume] in Serum or PlasmaOrdered By: Jah Almonte on 01-10-2023 Creatinine [Mass/Vol] 0.67 mg/dL 0.60-1.20 [facility] Creatinine [Mass/volume] in Serum or PlasmaOrdered By: Larissa Resendiz on 01-10-2023 Creatinine [Mass/Vol] 0.66 mg/dL 0.60-1.20 [facility] Eosinophils Auto (Bld) [#/Vo l]Ordered By: Jah Almonte on 01-10-2023 Eosinophils (Bld) [#/Vol] 0.1 10*3/uL 0.0-0.45 [facility] Eosinophils/100 WBC Auto (Bl d)Ordered By: Jah Almonte on 01-10-2023 Eosinophils/100 WBC (Bld) 0.8 % . [facility] Erythrocyte distribution wid th Auto (RBC) [Ratio]Ordered By: Jah Almonte on 01-10-2023 Erythrocyte distribution width (RBC) [Ratio] 19.3 % 11.9-15.3 [facility] Globulin Calc (S) [Mass/Vol] Ordered By: Jah Almonte on 01-10-2023 Globulin (S) [Mass/Vol] 2.7 g/dL [facility] Globulin Calc (S) [Mass/Vol] Ordered By: Larissa Resendiz on 01-10-2023 Globulin (S) [Mass/Vol] 2.8 g/dL [facility] Glucose Glucometer (BldC) [M ass/Vol]Ordered By: Jah Almonte on 01-10-2023 Glucose [Mass/Vol] 142 mg/dL [facility] Comment on above: Random Glucose Refer ence Range is dependent on time and content of last meal. Glucose of more than 200 mg/dL in a nonstressed, ambulatory subject supports the diagnosis of Diabetes Mellitus. Glucose [Mass/volume] in Ser um or PlasmaOrdered By: Jah Almonte on 01-10-2023 Glucose [Mass/Vol] 140 mg/dL 74-109 [facility] Comment on above: ADA recommended refe rence rangeRandom Glucose Reference Range is dependent on time and content of last meal. Glucose of more than 200 mg/dL in a nonstressed, ambulatory subject supports the diagnosis of Diabetes Mellitus. Glucose [Mass/volume] in Ser um or PlasmaOrdered By: Larissa Resendiz on 01-10-2023 Glucose [Mass/Vol] 138 mg/dL 74-109 [facility] Comment on above: ADA recommended refe rence rangeRandom Glucose Reference Range is dependent on time and content of last meal. Glucose of more than 200 mg/dL in a nonstressed, ambulatory subject supports the diagnosis of Diabetes Mellitus. HCG ( test) IA.rapi d Ql (U)Ordered By: Jah Almonte on 01-10-2023 HCG ( test) Ql (U) Negative [facility] Hematocrit Auto (Bld) [Volum e fraction]Ordered By: Jah Almonte on 01-10-2023 Hematocrit (Bld) [Volume fraction] 40.9 % 34.0-46.4 [facility] Hemoglobin [Mass/volume] in BloodOrdered By: Jah Almonte on 01-10-2023 Hemoglobin (Bld) [Mass/Vol] 13.5 g/dL 11.8-15.4 [facility] Ketones Auto test strip (U) [Mass/Vol]Ordered By: Jah Almonte on 01-10-2023 Ketones (U) [Mass/Vol] Negative Negative [facility] Laboratory - Chemistry and C hemistry - challengeOrdered By: Jah Almonte on 01-10-2023 GFR/1.73 sq M.predicted MDRD (S/P/Bld) [Vol rate/Area] mL/min/{1.73_m2} [facility] Leukocytes [#/volume] correc taurus for nucleated erythrocytes in Blood by Automated counOrdered By: Jah Almonte on 01-10-2023 WBC corrected for nucl RBC Auto (Bld) [#/Vol] 13.3 10*3/uL 3.8-11.6 [facility] Lymphocytes Auto (Bld) [#/Vo l]Ordered By: Jah Almonte on 01-10-2023 Lymphocytes (Bld) [#/Vol] 2.9 10*3/uL 1.00-4.8 [facility] Lymphocytes/100 WBC Auto (Bl d)Ordered By: Jah Almonte on 01-10-2023 Lymphocytes/100 WBC (Bld) 21.5 % . [facility] MCH Auto (RBC) [Entitic mass ]Ordered By: Jah Almonte on 01-10-2023 MCH (RBC) [Entitic mass] 25.8 pg 24.7-34.3 [facility] MCHC Auto (RBC) [Mass/Vol]Or dered By: Jah Almonte on 01-10-2023 MCHC (RBC) [Mass/Vol] 33.1 g/dL 32.0-35.0 [facility] MCV Auto (RBC) [Entitic vol] Ordered By: Jah Almonte on 01-10-2023 MCV (RBC) [Entitic vol] 77.9 fL 80-100 [facility] Magnesium [Mass/volume] in S gale or PlasmaOrdered By: Jah Almonte on 01-10-2023 Magnesium [Mass/Vol] 2.2 mg/dL 1.9-2.7 [facility] Monocyte distribution width [Entitic volume] in Blood by AutomatedOrdered By: Jah Almonte on 01-10-2023 Monocyte distribution width Auto (Bld) [Entitic vol] 20.66 % 0.00-20.00 [facility] Comment on above: For adults in ED, MD W > 20.0 may be associated with a higher risk of sepsis during the first 12 hrs of hospital admission Monocytes Auto (Bld) [#/Vol] Ordered By: Jah Almonte on 01-10-2023 Monocytes (Bld) [#/Vol] 0.6 10*3/uL 0.0-0.8 [facility] Monocytes/100 WBC Auto (Bld) Ordered By: Jah Almonte on 01-10-2023 Monocytes/100 WBC (Bld) 4.2 % . [facility] Neutrophils Auto (Bld) [#/Vo l]Ordered By: Jah Almonte on 01-10-2023 Neutrophils (Bld) [#/Vol] 9.7 10*3/uL 1.8-7.7 [facility] Neutrophils/100 WBC Auto (Bl d)Ordered By: Jah Almonte on 01-10-2023 Neutrophils/100 WBC (Bld) 72.7 % . [facility] Nitrite Test strip Ql (U)Ord ered By: Jah Almonte on 01-10-2023 Nitrite Ql (U) Negative Negative [facility] No Panel InformationOrdered By: Jah Almonte on 01-10-2023 Bedside Glucose #2 Comment Cleaned meter [facility] Bedside Glucose Comment See comment [facility] Comment on above: Glu2: WILL NOTIFY DR /RN Pharmacy Creatinine Clearance (Chem 146.37 [facility] No Panel InformationOrdered By: Larissa Resendiz on 01-10-2023 Pharmacy Creatinine Clearance (Chem N/A [facility] Nucleated erythrocytes [Pres ence] in Blood by Automated countOrdered By: Jah Almonte on 01-10-2023 Nucleated RBC Auto Ql (Bld) 0.0 /100{WBC} 0-0.5 [facility] Platelet mean volume Auto (B ld) [Entitic vol]Ordered By: Jah Almonte on 01-10-2023 Platelet mean volume (Bld) [Entitic vol] 9.4 fL 6.3-10.7 [facility] Platelets Auto (Bld) [#/Vol] Ordered By: Jah Almonte on 01-10-2023 Platelets (Bld) [#/Vol] 241 10*3/uL 150-450 [facility] Potassium [Moles/volume] in Serum or PlasmaOrdered By: Jah Almonte on 01-10-2023 Potassium [Moles/Vol] 3.5 mmol/L 3.5-5.1 [facility] Protein Auto test strip (U) [Mass/Vol]Ordered By: Jah Almonte on 01-10-2023 Protein (U) [Mass/Vol] Negative Negative [facility] Protein [Mass/volume] in Ser um or PlasmaOrdered By: Jah Almonte on 01-10-2023 Protein [Mass/Vol] 6.9 g/dL 6.4-8.9 [facility] RBC Auto (Bld) [#/Vol]Ordere d By: Jah Almonte on 01-10-2023 RBC (Bld) [#/Vol] 5.25 10*6/uL 3.60-5.00 [facility] Serum or plasma albumin/glob ulin mass ratioOrdered By: Jah Almonte on 01-10-2023 Albumin/Globulin [Mass ratio] 1.6 {ratio} [facility] Serum or plasma albumin/glob ulin mass ratioOrdered By: Larissa Resendiz on 01-10-2023 Albumin/Globulin [Mass ratio] 1.5 {ratio} [facility] Serum or plasma anion gap de terminationOrdered By: Jah Almonte on 01-10-2023 Anion gap [Moles/Vol] 11.7 mmol/L 6.0-15.0 [facility] Serum or plasma anion gap de terminationOrdered By: Larissa Resendiz on 01-10-2023 Anion gap [Moles/Vol] 15.6 mmol/L 6.0-15.0 [facility] Serum or plasma high density lipoprotein (HDL) cholesterol measurementOrdered By: Larissa Resendiz on 01-10-2023 Cholesterol in HDL [Mass/Vol] 48 mg/dL 35-85 [facility] Comment on above: HDL CHOL ATP-III CLA SSIFICATION Cardiovascular RiskHDL > or equal to 60 mg/dL LOWHDL < 40 mg/dL HIGH Serum or plasma total choles terol/high density lipoprotein (HDL) cholesterol mass ratOrdered By: Larissa Resendiz on 01-10-2023 Cholesterol.total/Cho lesterol in HDL [Mass ratio] 4.4 {ratio} <5.0 [facility] Sodium [Moles/volume] in Ser um or PlasmaOrdered By: Jah Almonte on 01-10-2023 Sodium [Moles/Vol] 139 mmol/L 136-145 [facility] Specific gravity Auto test s trip (U) [Rel density]Ordered By: Jah Almonte on 01-10-2023 Specific gravity (U) [Rel density] 1.015 1.001-1.03 0 [facility] Thyrotropin [Units/volume] i n Serum or PlasmaOrdered By: Larissa Resendiz on 01-10-2023 TSH Qn 1.60 m[IU]/L 0.45-5.33 [facility] Triglyceride [Mass/volume] i n Serum or PlasmaOrdered By: Larissa Resendiz on 01-10-2023 Triglyceride [Mass/Vol] 119 mg/dL 0-149 [facility] Comment on above: TRIG ATP III CLASSIF [...] <= 0.01 ng/mL [Mass/Vol] 3.6 pg/mL 0.0-15.0 [facility] Urea nitrogen [Mass/volume] in Serum or PlasmaOrdered By: Jah Almonte on 01-10-2023 Urea nitrogen [Mass/Vol] 20 mg/dL 7-25 [facility] Urine clarity by refractomet ry automatedOrdered By: Jah Almonte on 01-10-2023 Clarity Refractometry automated (U) Clear Clear [facility] Urine glucose measurement by automated test strip (mass/volume)Ordered By: Jah Almonte on 01-10-2023 Glucose Auto test strip (U) [Mass/Vol] Normal mg/dL Normal [facility] Urine hemoglobin detection b y automated test stripOrdered By: Jah Almonte on 01-10-2023 Hemoglobin Auto test strip Ql (U) Negative Negative [facility] Urine leukocyte esterase det ection by automated test stripOrdered By: Jah Almonte on 01-10-2023 Leukocyte esterase Auto test strip Ql (U) Negative Negative [facility] Urobilinogen Auto test strip (U) [Mass/Vol]Ordered By: Jah Almonte on 01-10-2023 Urobilinogen (U) [Mass/Vol] Normal mg/dL Normal [facility] Vitamin B12 ser/plasOrdered By: Larissa Resendiz on 01-10-2023 Cobalamin (Vitamin B12) [Mass/Vol] 457 pg/mL 180-914 [facility] WBC Auto (Bld) [#/Vol]Ordere d By: Jah Almonte on 01-10-2023 WBC (Bld) [#/Vol] 13.3 10*3/uL 3.8-11.6 [facility] pH Auto test strip (U)Ordere d By: Jah Almonte on 01-10-2023 pH (U) 5.5 [pH] 5.0-9.0 [facility] Albumin [Mass/volume] in Bod y fluidOrdered By: Keith Lugo on 12-27-2022 Albumin (Body fld) [Mass/Vol] 3.6 g/dL 3.2-5.5 [facility] Alkaline phosphatase [Enzyma tic activity/volume] in Serum or PlasmaOrdered By: Keith Lugo on 12-27-2022 ALP [Catalytic activity/Vol] 95 U/L 32-92 [facility] Aspartate aminotransferase [ Enzymatic activity/volume] in Serum or PlasmaOrdered By: Keith Lugo on 12-27-2022 AST [Catalytic activity/Vol] 17 U/L 10-42 [facility] Basophils Auto (Bld) [#/Vol] Ordered By: Keith Lugo on 12-27-2022 Basophils (Bld) [#/Vol] 0.1 10*3/uL 0.0-0.2 [facility] Basophils/100 WBC Auto (Bld) Ordered By: Keith Lugo on 12-27-2022 Basophils/100 WBC (Bld) 0.8 % . [facility] Bilirubin Test strip Ql (U)O rdered By: Keith Lugo on 12-27-2022 Bilirubin Ql (U) Negative Negative [facility] Bilirubin.total [Mass/volume ] in Serum or PlasmaOrdered By: Keith Lugo on 12-27-2022 Bilirubin [Mass/Vol] 0.2 mg/dL 0.3-1.2 [facility] COVID CepheidOrdered By: Dusty Lugo on 12-27-2022 SARS-CoV-2 (COVID-19) Ab IA Ql Negative Negative [facility] Comment on above: This is a duplicate [employer] Xpert Xpress CoV-2/Flu/RSV Plus RNA by RT-PCR result to be used for statistical tracking purpose only. SARS-CoV-2 (COVID-19) RNA JUDIT+probe Ql (Unsp spec) [facility] SARS-CoV-2 (COVID-19) RNA JUDIT+probe Ql (Unsp spec) [facility] Calcium [Mass/volume] in Ser um or PlasmaOrdered By: Keith Lugo on 12-27-2022 Calcium [Mass/Vol] 8.9 mg/dL 8.2-10.2 [facility] Carbon dioxide, total [Moles /volume] in Serum or PlasmaOrdered By: Keith Lugo on 12-27-2022 CO2 [Moles/Vol] 25.8 mmol/L 22.0-30.0 [facility] Chloride [Moles/volume] in S gale or PlasmaOrdered By: Keith Lugo on 12-27-2022 Chloride [Moles/Vol] 103 mmol/L 95-114 [facility] Color Auto (U)Ordered By: Hudson Lugo on 12-27-2022 Color (U) Yellow Yellow [facility] Creatinine and Glomerular fi ltration rate.predicted panel (S/P/Bld)Ordered By: Keith Lugo on 12-27-2022 Creatinine [Mass/Vol] 0.69 mg/dL 0.44-1.03 [facility] Eosinophils Auto (Bld) [#/Vo l]Ordered By: Keith Lugo on 12-27-2022 Eosinophils (Bld) [#/Vol] 0.1 10*3/uL 0.0-0.45 [facility] Eosinophils/100 WBC Auto (Bl d)Ordered By: Keith Lugo on 12-27-2022 Eosinophils/100 WBC (Bld) 0.9 % . [facility] Erythrocyte distribution wid th Auto (RBC) [Ratio]Ordered By: Keith Lugo on 12-27-2022 Erythrocyte distribution width (RBC) [Ratio] 20.8 % 11.9-15.3 [facility] Estimated glomerular filtrat ion rate (GFR) non- AmericanOrdered By: Keith Lugo on 12-27-2022 GFR/1.73 sq M.predicted among non-blacks MDRD (S/P/Bld) [Vol rate/Area] > 60 mL/Min [facility] Globulin Calc (S) [Mass/Vol] Ordered By: Keith Lugo on 12-27-2022 Globulin (S) [Mass/Vol] 2.8 g/dL [facility] Glucose [Mass/volume] in Ser um or PlasmaOrdered By: Keith Lugo on 12-27-2022 Glucose [Mass/Vol] 116 mg/dL 70-100 [facility] Comment on above: ADA recommended refe rence rangeRandom Glucose Reference Range is dependent on time and content of last meal. Glucose of more than 200 mg/dL in a nonstressed, ambulatory subject supports the diagnosis of Diabetes Mellitus. Hematocrit Auto (Bld) [Volum e fraction]Ordered By: Keith Lugo on 12-27-2022 Hematocrit (Bld) [Volume fraction] 40.6 % 34.0-46.4 [facility] Hemoglobin [Mass/volume] in BloodOrdered By: Keith Lugo on 12-27-2022 Hemoglobin (Bld) [Mass/Vol] 13.1 g/dL 11.8-15.4 [facility] Ketones Auto test strip (U) [Mass/Vol]Ordered By: Keith Lugo on 12-27-2022 Ketones (U) [Mass/Vol] Negative Negative [facility] Laboratory - Chemistry and C hemistry - challengeOrdered By: Keith Lugo on 12-27-2022 Lipase [Catalytic activity/Vol] 27.0 U/L 22-51 [facility] Leukocytes [#/volume] correc taurus for nucleated erythrocytes in Blood by Automated counOrdered By: Keith Lugo on 12-27-2022 WBC corrected for nucl RBC Auto (Bld) [#/Vol] 13.7 10*3/uL 3.8-11.6 [facility] Lymphocytes Auto (Bld) [#/Vo l]Ordered By: Keith Lugo on 12-27-2022 Lymphocytes (Bld) [#/Vol] 3.0 10*3/uL 1.00-4.8 [facility] Lymphocytes/100 WBC Auto (Bl d)Ordered By: Keith Lugo on 12-27-2022 Lymphocytes/100 WBC (Bld) 22.2 % . [facility] MCH Auto (RBC) [Entitic mass ]Ordered By: Keith Lugo on 12-27-2022 MCH (RBC) [Entitic mass] 24.8 pg 24.7-34.3 [facility] MCHC Auto (RBC) [Mass/Vol]Or dered By: Keith Lugo on 12-27-2022 MCHC (RBC) [Mass/Vol] 32.2 g/dL 32.0-35.0 [facility] MCV Auto (RBC) [Entitic vol] Ordered By: Keith Lugo on 12-27-2022 MCV (RBC) [Entitic vol] 77.1 fL 80-100 [facility] Monocyte distribution width [Entitic volume] in Blood by AutomatedOrdered By: Keith Lugo on 12-27-2022 Monocyte distribution width Auto (Bld) [Entitic vol] 17.58 % 0.00-20.00 [facility] Monocytes Auto (Bld) [#/Vol] Ordered By: Keith Lugo on 12-27-2022 Monocytes (Bld) [#/Vol] 0.6 10*3/uL 0.0-0.8 [facility] Monocytes/100 WBC Auto (Bld) Ordered By: Keith Lugo on 12-27-2022 Monocytes/100 WBC (Bld) 4.6 % . [facility] Neutrophils Auto (Bld) [#/Vo l]Ordered By: Keith Lugo on 12-27-2022 Neutrophils (Bld) [#/Vol] 9.8 10*3/uL 1.8-7.7 [facility] Neutrophils/100 WBC Auto (Bl d)Ordered By: Keith Lugo on 12-27-2022 Neutrophils/100 WBC (Bld) 71.5 % . [facility] Nitrite Test strip Ql (U)Ord ered By: Keith Lugo on 12-27-2022 Nitrite Ql (U) Negative Negative [facility] No Panel InformationOrdered By: Keith Lugo on 12-27-2022 D-Dimer Quantitative (PE/DVT) 385 ng/mL 0-243 [facility] Comment on above: The reference range for [...] conditions. Estimated GFR () > 60 mL/Min [facility] Comment on above: GFR estimated refere nce range: According to KDOQI guidelines, <60 ml/min/1.73m2 is sufficient to diagnose a patient with chronic kidney disease. Pharmacy Creatinine Clearance (Chem 135.15 [facility] Nucleated erythrocytes [Pres ence] in Blood by Automated countOrdered By: Keith Lugo on 12-27-2022 Nucleated RBC Auto Ql (Bld) 0.1 /100{WBC} 0-0.5 [facility] Platelet mean volume Auto (B ld) [Entitic vol]Ordered By: Keith Lugo on 12-27-2022 Platelet mean volume (Bld) [Entitic vol] 9.2 fL 6.3-10.7 [facility] Platelets Auto (Bld) [#/Vol] Ordered By: Keith Lugo on 12-27-2022 Platelets (Bld) [#/Vol] 267 10*3/uL 150-450 [facility] Potassium [Moles/volume] in Serum or PlasmaOrdered By: Keith Lugo on 12-27-2022 Potassium [Moles/Vol] 3.6 mmol/L 3.5-5.1 [facility] Protein Auto test strip (U) [Mass/Vol]Ordered By: Keith Lugo on 12-27-2022 Protein (U) [Mass/Vol] Negative Negative [facility] Protein [Mass/volume] in Ser um or PlasmaOrdered By: Keith Lugo on 12-27-2022 Protein [Mass/Vol] 6.4 g/dL 6.1-7.9 [facility] RBC Auto (Bld) [#/Vol]Ordere d By: Keith Lugo on 12-27-2022 RBC (Bld) [#/Vol] 5.27 10*6/uL 3.60-5.00 [facility] Serum or plasma alanine matias otransferase measurement without P-5'-P (enzymatic activiOrdered By: Keith Lugo on 12-27-2022 ALT No additional P-5'-P [Catalytic activity/Vol] 16 U/L 10-60 [facility] Serum or plasma albumin/glob ulin mass ratioOrdered By: Keith Lugo on 12-27-2022 Albumin/Globulin [Mass ratio] 1.3 {ratio} [facility] Serum or plasma anion gap de terminationOrdered By: Keith Lugo on 12-27-2022 Anion gap [Moles/Vol] 12.8 mmol/L 6.0-15.0 [facility] Sodium [Moles/volume] in Ser um or PlasmaOrdered By: Keith Lugo on 12-27-2022 Sodium [Moles/Vol] 138 mmol/L 136-146 [facility] Specific gravity Auto test s trip (U) [Rel density]Ordered By: Keith Lugo on 12-27-2022 Specific gravity (U) [Rel density] 1.026 1.001-1.03 0 [facility] Troponin I.cardiac [Mass/vol ume] in Serum or Plasma by High sensitivity methodOrdered By: Keith Lugo on 12-27-2022 Troponin I.cardiac High sensitivity method [Mass/Vol] 4 pg/mL 0-15 [facility] Urea nitrogen [Mass/volume] in Serum or PlasmaOrdered By: Keith uLgo on 12-27-2022 Urea nitrogen [Mass/Vol] 11 mg/dL 9-23 [facility] Urine clarity by refractomet ry automatedOrdered By: Keith Lugo on 12-27-2022 Clarity Refractometry automated (U) Clear Clear [facility] Urine glucose measurement by automated test strip (mass/volume)Ordered By: Keith Lugo on 12-27-2022 Glucose Auto test strip (U) [Mass/Vol] Normal mg/dL Normal [facility] Urine hemoglobin detection b y automated test stripOrdered By: Keith Lugo on 12-27-2022 Hemoglobin Auto test strip Ql (U) Negative Negative [facility] Urine leukocyte esterase det ection by automated test stripOrdered By: Keith Lugo on 12-27-2022 Leukocyte esterase Auto test strip Ql (U) Negative Negative [facility] Urobilinogen Auto test strip (U) [Mass/Vol]Ordered By: Keith Lugo on 12-27-2022 Urobilinogen (U) [Mass/Vol] Normal mg/dL Normal [facility] WBC Auto (Bld) [#/Vol]Ordere d By: Keith Lugo on 12-27-2022 WBC (Bld) [#/Vol] 13.7 10*3/uL 3.8-11.6 [facility] pH Auto test strip (U)Ordere d By: Keith Lugo on 12-27-2022 pH (U) 5.5 [pH] 5.0-9.0 [facility] Basophils Auto (Bld) [#/Vol] Ordered By: Nasir Garcia on 12-05-2022 Basophils (Bld) [#/Vol] 0.2 10*3/uL 0.0-0.2 [facility] Basophils/100 WBC Auto (Bld) Ordered By: Nasir Garcia on 12-05-2022 Basophils/100 WBC (Bld) 1.1 % . [facility] Bilirubin Auto test strip Ql (U)Ordered By: Nasir Garcia on 12-05-2022 Bilirubin Ql (U) Negative Negative [facility] Body fluid albumin measureme nt (mass/volume)Ordered By: Nasir Garcia on 12-05-2022 Albumin (Body fld) [Mass/Vol] 3.7 g/dL 3.2-5.5 [facility] Creatinine and Glomerular fi ltration rate.predicted panel (S/P/Bld)Ordered By: Nasir Garcia on 12-05-2022 Creatinine [Mass/Vol] 0.70 mg/dL 0.44-1.03 [facility] Eosinophils Auto (Bld) [#/Vo l]Ordered By: Nasir Garcia on 12-05-2022 Eosinophils (Bld) [#/Vol] 0.2 10*3/uL 0.0-0.45 [facility] Eosinophils/100 WBC Auto (Bl d)Ordered By: Nasir Garcia on 12-05-2022 Eosinophils/100 WBC (Bld) 1.2 % . [facility] Erythrocyte distribution wid th Auto (RBC) [Ratio]Ordered By: Nasir Garcia on 12-05-2022 Erythrocyte distribution width (RBC) [Ratio] 22.5 % 11.9-15.3 [facility] Estimated glomerular filtrat ion rate (GFR) non- AmericanOrdered By: Nasir Garcia on 12-05-2022 GFR/1.73 sq M.predicted among non-blacks MDRD (S/P/Bld) [Vol rate/Area] > 60 mL/Min [facility] Globulin Calc (S) [Mass/Vol] Ordered By: Nasir Garcia on 12-05-2022 Globulin (S) [Mass/Vol] 3.0 g/dL [facility] HCG ( test) IA.rapi d Ql (U)Ordered By: Nasir Garcia on 12-05-2022 HCG ( test) Ql (U) Negative [facility] Hematocrit Auto (Bld) [Volum e fraction]Ordered By: Nasir Garcia on 12-05-2022 Hematocrit (Bld) [Volume fraction] 40.2 % 34.0-46.4 [facility] Hemoglobin [Mass/volume] in BloodOrdered By: Nasir Garcia on 12-05-2022 Hemoglobin (Bld) [Mass/Vol] 13.0 g/dL 11.8-15.4 [facility] Ketones Auto test strip (U) [Mass/Vol]Ordered By: Nasir Garcia on 12-05-2022 Ketones (U) [Mass/Vol] Negative Negative [facility] Laboratory - Chemistry and C hemistry - challengeOrdered By: Nasir Garcia on 12-05-2022 Lipase [Catalytic activity/Vol] 32.0 U/L 22-51 [facility] Leukocytes [#/volume] correc taurus for nucleated erythrocytes in Blood by Automated counOrdered By: Nasir Garcia on 12-05-2022 WBC corrected for nucl RBC Auto (Bld) [#/Vol] 13.9 10*3/uL 3.8-11.6 [facility] Lymphocytes Auto (Bld) [#/Vo l]Ordered By: aNsir Garcia on 12-05-2022 Lymphocytes (Bld) [#/Vol] 3.5 10*3/uL 1.00-4.8 [facility] Lymphocytes/100 WBC Auto (Bl d)Ordered By: Nasir Garcia on 12-05-2022 Lymphocytes/100 WBC (Bld) 25.0 % . [facility] MCH Auto (RBC) [Entitic mass ]Ordered By: Nasir Garcia on 12-05-2022 MCH (RBC) [Entitic mass] 24.2 pg 24.7-34.3 [facility] MCHC Auto (RBC) [Mass/Vol]Or dered By: Nasir Garcia on 12-05-2022 MCHC (RBC) [Mass/Vol] 32.4 g/dL 32.0-35.0 [facility] MCV Auto (RBC) [Entitic vol] Ordered By: Nasir Garcia on 12-05-2022 MCV (RBC) [Entitic vol] 74.8 fL 80-100 [facility] Monocyte distribution width [Entitic volume] in Blood by AutomatedOrdered By: Nasir Garcia on 12-05-2022 Monocyte distribution width Auto (Bld) [Entitic vol] 19.65 % 0.00-20.00 [facility] Monocytes Auto (Bld) [#/Vol] Ordered By: Nasir Garcia on 12-05-2022 Monocytes (Bld) [#/Vol] 0.8 10*3/uL 0.0-0.8 [facility] Monocytes/100 WBC Auto (Bld) Ordered By: Nasir Garcia on 12-05-2022 Monocytes/100 WBC (Bld) 5.4 % . [facility] Neutrophils Auto (Bld) [#/Vo l]Ordered By: Nasir Garcia on 12-05-2022 Neutrophils (Bld) [#/Vol] 9.3 10*3/uL 1.8-7.7 [facility] Neutrophils/100 WBC Auto (Bl d)Ordered By: Nasir Garcia on 12-05-2022 Neutrophils/100 WBC (Bld) 67.3 % . [facility] No Panel InformationOrdered By: Nasir Garcia on 12-05-2022 Estimated GFR () > 60 mL/Min [facility] Comment on above: GFR estimated refere nce range: According to KDOQI guidelines, <60 ml/min/1.73m2 is sufficient to diagnose a patient with chronic kidney disease. Pharmacy Creatinine Clearance (Chem 138.72 [facility] Nucleated erythrocytes [Pres ence] in Blood by Automated countOrdered By: Nasir Garcia on 12-05-2022 Nucleated RBC Auto Ql (Bld) 0.2 /100{WBC} 0-0.5 [facility] Platelet mean volume Auto (B ld) [Entitic vol]Ordered By: Nasir Garcia on 12-05-2022 Platelet mean volume (Bld) [Entitic vol] 9.7 fL 6.3-10.7 [facility] Platelets Auto (Bld) [#/Vol] Ordered By: Nasir Garcia on 12-05-2022 Platelets (Bld) [#/Vol] 283 10*3/uL 150-450 [facility] Protein Auto test strip (U) [Mass/Vol]Ordered By: Nasir Garcia on 12-05-2022 Protein (U) [Mass/Vol] Negative Negative [facility] Protein [Mass/volume] in Ser um or PlasmaOrdered By: Nasir Garcia on 12-05-2022 Protein [Mass/Vol] 6.7 g/dL 6.1-7.9 [facility] RBC Auto (Bld) [#/Vol]Ordere d By: Nasir Garcia on 12-05-2022 RBC (Bld) [#/Vol] 5.38 10*6/uL 3.60-5.00 [facility] Serum or plasma alanine matias otransferase measurement without P-5'-P (enzymatic activiOrdered By: Nasir Garcia on 12-05-2022 ALT No additional P-5'-P [Catalytic activity/Vol] 20 U/L 10-60 [facility] Serum or plasma albumin/glob ulin mass ratioOrdered By: Nasir Garcia on 12-05-2022 Albumin/Globulin [Mass ratio] 1.2 {ratio} [facility] Serum or plasma alkaline vishal sphatase measurement (enzymatic activity/volume)Ordered By: Nasir Garcia on 12-05-2022 ALP [Catalytic activity/Vol] 102 U/L 32-92 [facility] Serum or plasma anion gap de terminationOrdered By: Nasir Garcia on 12-05-2022 Anion gap [Moles/Vol] 13.8 mmol/L 6.0-15.0 [facility] Serum or plasma aspartate am inotransferase measurement (enzymatic activity/volume)Ordered By: Nasir Garcia on 12-05-2022 AST [Catalytic activity/Vol] 22 U/L 10-42 [facility] Serum or plasma calcium lauren urement (mass/volume)Ordered By: Nasir Garcia on 12-05-2022 Calcium [Mass/Vol] 8.9 mg/dL 8.2-10.2 [facility] Serum or plasma chloride rosaline surement (moles/volume)Ordered By: Nasir Garcia on 12-05-2022 Chloride [Moles/Vol] 102 mmol/L 95-114 [facility] Serum or plasma glucose lauren urement (mass/volume)Ordered By: Nasir Garcia on 12-05-2022 Glucose [Mass/Vol] 123 mg/dL 70-100 [facility] Comment on above: ADA recommended refe rence rangeRandom Glucose Reference Range is dependent on time and content of last meal. Glucose of more than 200 mg/dL in a nonstressed, ambulatory subject supports the diagnosis of Diabetes Mellitus. Serum or plasma potassium me asurement (moles/volume)Ordered By: Nasir Garcia on 12-05-2022 Potassium [Moles/Vol] 4.4 mmol/L 3.5-5.1 [facility] Serum or plasma sodium measu rement (moles/volume)Ordered By: Nasir Garcia on 12-05-2022 Sodium [Moles/Vol] 137 mmol/L 136-146 [facility] Serum or plasma total biliru bin measurement (mass/volume)Ordered By: Nasir Garcia on 12-05-2022 Bilirubin [Mass/Vol] 0.3 mg/dL 0.3-1.2 [facility] Serum or plasma total carbon dioxide measurement (moles/volume)Ordered By: Nasir Garcia on 12-05-2022 CO2 [Moles/Vol] 25.6 mmol/L 22.0-30.0 [facility] Serum or plasma urea nitroge n measurement (mass/volume)Ordered By: Nasir Garcia on 12-05-2022 Urea nitrogen [Mass/Vol] 17 mg/dL 9-23 [facility] Urine appearanceOrdered By: Nasir Garcia on 12-05-2022 Appearance (U) Clear Clear [facility] Urine colorOrdered By: Nasir Garcia on 12-05-2022 Color (U) Yellow Yellow [facility] Urine glucose measurement by automated test strip (mass/volume)Ordered By: Nasir Garcia on 12-05-2022 Glucose Auto test strip (U) [Mass/Vol] Normal mg/dL Normal [facility] Urine hemoglobin detection b y automated test stripOrdered By: Nasir Garcia on 12-05-2022 Hemoglobin Auto test strip Ql (U) Negative Negative [facility] Urine leukocyte esterase det ection by automated test stripOrdered By: Nasir Garcia on 12-05-2022 Leukocyte esterase Auto test strip Ql (U) Negative Negative [facility] Urine nitrite detection by a utomated test stripOrdered By: Nasir Garcia on 12-05-2022 Nitrite Auto test strip Ql (U) Negative Negative [facility] Urobilinogen Auto test strip (U) [Mass/Vol]Ordered By: Nasir Garcia on 12-05-2022 Urobilinogen (U) [Mass/Vol] Normal mg/dL Normal [facility] WBC Auto (Bld) [#/Vol]Ordere d By: Nasir Garcia on 12-05-2022 WBC (Bld) [#/Vol] 13.9 10*3/uL 3.8-11.6 [facility] pH Auto test strip (U)Ordere d By: Nasir Garcia on 12-05-2022 pH (U) 1.025 [pH] 1.001-1.03 0 [facility] pH (U) 6.5 [pH] 5.0-9.0 [facility] Anisocytosis LM Ql (Bld)Orde red By: Renato Kumar on 09-07-2022 Anisocytosis Ql (Bld) Marked [facility] Basophils Auto (Bld) [#/Vol] Ordered By: Renato Kumar on 09-07-2022 Basophils (Bld) [#/Vol] 0.2 10*3/uL 0.0-0.2 [facility] Basophils/100 WBC Auto (Bld) Ordered By: Renato Kumar on 09-07-2022 Basophils/100 WBC (Bld) 1.0 % . [facility] Creatine kinase [Enzymatic a ctivity/volume] in Serum or PlasmaOrdered By: Renato Kumar on 09-07-2022 CK [Catalytic activity/Vol] 72 U/L 22-269 [facility] Creatinine and Glomerular fi ltration rate.predicted panel (S/P/Bld)Ordered By: Renato Kumar on 09-07-2022 Creatinine [Mass/Vol] 0.52 mg/dL 0.44-1.03 [facility] Eosinophils Auto (Bld) [#/Vo l]Ordered By: Renato Kumar on 09-07-2022 Eosinophils (Bld) [#/Vol] 0.1 10*3/uL 0.0-0.45 [facility] Eosinophils/100 WBC Auto (Bl d)Ordered By: Renato Kumar on 09-07-2022 Eosinophils/100 WBC (Bld) 0.8 % . [facility] Erythrocyte distribution wid th Auto (RBC) [Ratio]Ordered By: Renato Kumar on 09-07-2022 Erythrocyte distribution width (RBC) [Ratio] 20.7 % 11.9-15.3 [facility] Estimated glomerular filtrat ion rate (GFR) non- AmericanOrdered By: Renato Kumar on 09-07-2022 GFR/1.73 sq M.predicted among non-blacks MDRD (S/P/Bld) [Vol rate/Area] > 60 mL/Min [facility] Hematocrit Auto (Bld) [Volum e fraction]Ordered By: Renato Kumar on 09-07-2022 Hematocrit (Bld) [Volume fraction] 37.8 % 34.0-46.4 [facility] Hemoglobin [Mass/volume] in BloodOrdered By: Renato Kumar on 09-07-2022 Hemoglobin (Bld) [Mass/Vol] 11.4 g/dL 11.8-15.4 [facility] Hypochromia LM Ql (Bld)Order ed By: Renato Kumar on 09-07-2022 Hypochromia Ql (Bld) Moderate [facility] Laboratory - Hematology and Cell countsOrdered By: Renato Kumar on 09-07-2022 Nucleated RBC/100 WBC (Bld) [Ratio] 0.0 % 0-0.5 [facility] Leukocytes [#/volume] in Blo od by Automated countOrdered By: Renato Kumar on 09-07-2022 WBC (Bld) [#/Vol] 15.2 10*3/uL 4.5-11.0 [facility] Lymphocytes Auto (Bld) [#/Vo l]Ordered By: Renato Kumar on 09-07-2022 Lymphocytes (Bld) [#/Vol] 3.2 10*3/uL 1.00-4.8 [facility] Lymphocytes/100 WBC Auto (Bl d)Ordered By: Renato Kumar on 09-07-2022 Lymphocytes/100 WBC (Bld) 20.8 % . [facility] MCH Auto (RBC) [Entitic mass ]Ordered By: Renato Kumar on 09-07-2022 MCH (RBC) [Entitic mass] 20.2 pg 24.7-34.3 [facility] MCHC Auto (RBC) [Mass/Vol]Or dered By: Renato Kumar on 09-07-2022 MCHC (RBC) [Mass/Vol] 30.1 g/dL 32.0-35.0 [facility] MCV Auto (RBC) [Entitic vol] Ordered By: Renato Kumar on 09-07-2022 MCV (RBC) [Entitic vol] 67.0 fL 80-100 [facility] Macrocytes LM Ql (Bld)Ordere d By: Renato Kumar on 09-07-2022 Macrocytes Ql (Bld) Slight [facility] Microcytes LM Ql (Bld)Ordere d By: Renato Kumar on 09-07-2022 Microcytes Ql (Bld) Moderate [facility] Monocytes Auto (Bld) [#/Vol] Ordered By: Renato Kumar on 09-07-2022 Monocytes (Bld) [#/Vol] 0.9 10*3/uL 0.0-0.8 [facility] Monocytes/100 WBC Auto (Bld) Ordered By: Renato Kumar on 09-07-2022 Monocytes/100 WBC (Bld) 5.9 % . [facility] Neutrophils Auto (Bld) [#/Vo l]Ordered By: Renato Kumar on 09-07-2022 Neutrophils (Bld) [#/Vol] 10.9 10*3/uL 1.8-7.7 [facility] Neutrophils/100 WBC Auto (Bl d)Ordered By: Renato Kumar on 09-07-2022 Neutrophils/100 WBC (Bld) 71.5 % . [facility] No Panel InformationOrdered By: Renato Kumar on 09-07-2022 Estimated GFR () > 60 mL/Min [facility] Comment on above: GFR estimated refere nce range: According to KDOQI guidelines, <60 ml/min/1.73m2 is sufficient to diagnose a patient with chronic kidney disease. Pharmacy Creatinine Clearance (Chem 182.66 [facility] Platelet adequacy [Presence] in Blood by Light microscopyOrdered By: Renato Kumar on 09-07-2022 Platelets LM Ql (Bld) Normal Normal [facility] Platelet mean volume Auto (B ld) [Entitic vol]Ordered By: Renato Kumar on 09-07-2022 Platelet mean volume (Bld) [Entitic vol] 9.1 fL 6.3-10.7 [facility] Platelet morphology finding [Identifier] in BloodOrdered By: Renato Kumar on 09-07-2022 Platelet morphology finding Nom (Bld) Normal Normal [facility] Platelets Auto (Bld) [#/Vol] Ordered By: Renato Kumar on 09-07-2022 Platelets (Bld) [#/Vol] 275 10*3/uL 150-450 [facility] RBC Auto (Bld) [#/Vol]Ordere d By: Renato Kumar on 09-07-2022 RBC (Bld) [#/Vol] 5.64 10*6/uL 3.60-5.00 [facility] RBC morphologyOrdered By: Rachael Kumar on 09-07-2022 RBC morphology finding Nom (Bld) N/A [facility] Red blood cell stomatocyte d etectionOrdered By: Renato Kumar on 09-07-2022 Stomatocytes LM Ql (Bld) Slight [facility] Serum or plasma anion gap de terminationOrdered By: Renato Kumar on 09-07-2022 Anion gap [Moles/Vol] 16.4 mmol/L 6.0-15.0 [facility] Serum or plasma calcium lauren urement (mass/volume)Ordered By: Renato Kumar on 09-07-2022 Calcium [Mass/Vol] 9.2 mg/dL 8.2-10.2 [facility] Serum or plasma chloride rosaline surement (moles/volume)Ordered By: Renato Kumar on 09-07-2022 Chloride [Moles/Vol] 103 mmol/L 95-114 [facility] Serum or plasma creatine kin ase MB (CKMB)/total creatine kinase (CK) ratio by calculaOrdered By: Renato Kumar on 09-07-2022 CK.MB Calc [Catalytic fraction] 1.5 % 0.00-2.50 [facility] Serum or plasma creatine kin ase MB measurement (mass/volume)Ordered By: Renato Kumar on 09-07-2022 CK.MB [Mass/Vol] 1.1 ng/mL 0.6-6.3 [facility] Serum or plasma glucose lauren urement (mass/volume)Ordered By: Renato Kumar on 09-07-2022 Glucose [Mass/Vol] 100 mg/dL 70-100 [facility] Comment on above: ADA recommended refe rence rangeRandom Glucose Reference Range is dependent on time and content of last meal. Glucose of more than 200 mg/dL in a nonstressed, ambulatory subject supports the diagnosis of Diabetes Mellitus. Serum or plasma potassium me asurement (moles/volume)Ordered By: Renato Kumar on 09-07-2022 Potassium [Moles/Vol] 4.0 mmol/L 3.5-5.1 [facility] Serum or plasma sodium measu rement (moles/volume)Ordered By: Renato Kumar on 09-07-2022 Sodium [Moles/Vol] 139 mmol/L 136-146 [facility] Serum or plasma total carbon dioxide measurement (moles/volume)Ordered By: Renato Kumar on 09-07-2022 CO2 [Moles/Vol] 23.6 mmol/L 22.0-30.0 [facility] Serum or plasma urea nitroge n measurement (mass/volume)Ordered By: Renato Kumar on 09-07-2022 Urea nitrogen [Mass/Vol] 14 mg/dL 9-23 [facility] Troponin I.cardiac [Mass/vol ume] in Serum or Plasma by High sensitivity methodOrdered By: Renato Kumar on 09-07-2022 Troponin I.cardiac High sensitivity method [Mass/Vol] 5 pg/mL 0-15 [facility] HCG ( test) IA.rapi d Ql (U)Ordered By: Piero Veronica on 07-09-2022 HCG ( test) Ql (U) Negative [facility] Basophils Auto (Bld) [#/Vol] Ordered By: Stephanie Babcock on 07-05-2022 Basophils (Bld) [#/Vol] 0.1 10*3/uL 0.0-0.2 [facility] Basophils/100 WBC Auto (Bld) Ordered By: Stephanie Babcock on 07-05-2022 Basophils/100 WBC (Bld) 0.5 % . [facility] Blood hemoglobin measurement (mass/volume)Ordered By: Stephanie Babcock on 07-05-2022 Hemoglobin (Bld) [Mass/Vol] 10.3 g/dL 11.8-15.4 [facility] Blood leukocytes automated c ount (number/volume)Ordered By: Stephanie Babcock on 07-05-2022 WBC (Bld) [#/Vol] 13.2 10*3/uL 4.5-11.0 [facility] Eosinophils Auto (Bld) [#/Vo l]Ordered By: Stephanie Babcock on 07-05-2022 Eosinophils (Bld) [#/Vol] 0.1 10*3/uL 0.0-0.45 [facility] Eosinophils/100 WBC Auto (Bl d)Ordered By: Stephanie Babcock on 07-05-2022 Eosinophils/100 WBC (Bld) 0.8 % . [facility] Erythrocyte distribution wid th Auto (RBC) [Ratio]Ordered By: Stephanie Babcock on 07-05-2022 Erythrocyte distribution width (RBC) [Ratio] 17.0 % 11.9-15.3 [facility] Hematocrit Auto (Bld) [Volum e fraction]Ordered By: Stephanie Babcock on 07-05-2022 Hematocrit (Bld) [Volume fraction] 33.6 % 34.0-46.4 [facility] Laboratory - Hematology and Cell countsOrdered By: Stephanie Babcock on 07-05-2022 Nucleated RBC/100 WBC (Bld) [Ratio] 0.0 % 0-0.5 [facility] Lymphocytes Auto (Bld) [#/Vo l]Ordered By: Stephanie Babcock on 07-05-2022 Lymphocytes (Bld) [#/Vol] 2.4 10*3/uL 1.00-4.8 [facility] Lymphocytes/100 WBC Auto (Bl d)Ordered By: Stephanie Babcock on 07-05-2022 Lymphocytes/100 WBC (Bld) 18.5 % . [facility] MCH Auto (RBC) [Entitic mass ]Ordered By: Stephanie Babcock on 07-05-2022 MCH (RBC) [Entitic mass] 21.8 pg 24.7-34.3 [facility] MCHC Auto (RBC) [Mass/Vol]Or dered By: Stephanie Babcock on 07-05-2022 MCHC (RBC) [Mass/Vol] 30.7 g/dL 32.0-35.0 [facility] MCV Auto (RBC) [Entitic vol] Ordered By: Stephanie Babcock on 07-05-2022 MCV (RBC) [Entitic vol] 71.1 fL 80-100 [facility] Monocytes Auto (Bld) [#/Vol] Ordered By: Stephanie Babcock on 07-05-2022 Monocytes (Bld) [#/Vol] 0.6 10*3/uL 0.0-0.8 [facility] Monocytes/100 WBC Auto (Bld) Ordered By: Stephanie Babcock on 07-05-2022 Monocytes/100 WBC (Bld) 4.4 % . [facility] Neutrophils Auto (Bld) [#/Vo l]Ordered By: Stephanie Babcock on 07-05-2022 Neutrophils (Bld) [#/Vol] 10.0 10*3/uL 1.8-7.7 [facility] Neutrophils/100 WBC Auto (Bl d)Ordered By: Stephanie Babcock on 07-05-2022 Neutrophils/100 WBC (Bld) 75.8 % . [facility] Platelet mean volume Auto (B ld) [Entitic vol]Ordered By: Stephanie Babcock on 07-05-2022 Platelet mean volume (Bld) [Entitic vol] 9.5 fL 6.3-10.7 [facility] Platelets Auto (Bld) [#/Vol] Ordered By: Stephanie Babcock on 07-05-2022 Platelets (Bld) [#/Vol] 367 10*3/uL 150-450 [facility] RBC Auto (Bld) [#/Vol]Ordere d By: Stephanie Babcock on 07-05-2022 RBC (Bld) [#/Vol] 4.72 10*6/uL 3.60-5.00 [facility] Automated erythrocytes count in urine sediment (number/area)Ordered By: Jesus Petersen on 06-04-2022 RBC Auto (Urine sed) [#/Area] Innumerable [HPF] 0-4 [facility] Automated leukocytes count i n urine sediment (number/area)Ordered By: Jesus Petersen on 06-04-2022 WBC Auto (Urine sed) [#/Area] 1-2 [HPF] 0-4 [facility] Basophils Auto (Bld) [#/Vol] Ordered By: Jesus Petersen on 06-04-2022 Basophils (Bld) [#/Vol] 0.1 10*3/uL 0.0-0.2 [facility] Basophils/100 WBC Auto (Bld) Ordered By: Jesus Petersen on 06-04-2022 Basophils/100 WBC (Bld) 0.5 % . [facility] Bilirubin Test strip Ql (U)O rdered By: Jesus Petersen on 06-04-2022 Bilirubin Ql (U) Negative Negative [facility] Blood hemoglobin measurement (mass/volume)Ordered By: Jesus Petersen on 06-04-2022 Hemoglobin (Bld) [Mass/Vol] 10.5 g/dL 11.8-15.4 [facility] Blood leukocytes automated c ount (number/volume)Ordered By: Jesus Petersen on 06-04-2022 WBC (Bld) [#/Vol] 14.2 10*3/uL 4.5-11.0 [facility] Color Auto (U)Ordered By: Wai Petersen on 06-04-2022 Color (U) [place] Yellow [facility] Eosinophils Auto (Bld) [#/Vo l]Ordered By: Jesus Petersen on 06-04-2022 Eosinophils (Bld) [#/Vol] 0.1 10*3/uL 0.0-0.45 [facility] Eosinophils/100 WBC Auto (Bl d)Ordered By: Jesus Petersen on 06-04-2022 Eosinophils/100 WBC (Bld) 0.9 % . [facility] Erythrocyte distribution wid th Auto (RBC) [Ratio]Ordered By: Jesus Petersen on 06-04-2022 Erythrocyte distribution width (RBC) [Ratio] 16.3 % 11.9-15.3 [facility] HCG ( test) IA.rapi d Ql (U)Ordered By: Jesus Petersen on 06-04-2022 HCG ( test) Ql (U) Negative [facility] Hematocrit Auto (Bld) [Volum e fraction]Ordered By: Jesus Petersen on 06-04-2022 Hematocrit (Bld) [Volume fraction] 33.3 % 34.0-46.4 [facility] Ketones Auto test strip (U) [Mass/Vol]Ordered By: Jesus Petersen on 06-04-2022 Ketones (U) [Mass/Vol] Negative Negative [facility] Laboratory - Hematology and Cell countsOrdered By: Jesus Petersen on 06-04-2022 Nucleated RBC/100 WBC (Bld) [Ratio] 0.0 % 0-0.5 [facility] Laboratory - UrinalysisOrder ed By: Jesus Petersen on 06-04-2022 Hyaline casts LM Ql (Urine sed) 0-8 [LPF] 0-8 [facility] Lymphocytes Auto (Bld) [#/Vo l]Ordered By: Jesus Petersen on 06-04-2022 Lymphocytes (Bld) [#/Vol] 3.1 10*3/uL 1.00-4.8 [facility] Lymphocytes/100 WBC Auto (Bl d)Ordered By: Jesus Petersen on 06-04-2022 Lymphocytes/100 WBC (Bld) 21.9 % . [facility] MCH Auto (RBC) [Entitic mass ]Ordered By: Jesus Petersen on 06-04-2022 MCH (RBC) [Entitic mass] 23.9 pg 24.7-34.3 [facility] MCHC Auto (RBC) [Mass/Vol]Or dered By: Jesus Petersen on 06-04-2022 MCHC (RBC) [Mass/Vol] 31.4 g/dL 32.0-35.0 [facility] MCV Auto (RBC) [Entitic vol] Ordered By: Jesus Petersen on 06-04-2022 MCV (RBC) [Entitic vol] 76.2 fL 80-100 [facility] Monocytes Auto (Bld) [#/Vol] Ordered By: Jesus Petersen on 06-04-2022 Monocytes (Bld) [#/Vol] 0.8 10*3/uL 0.0-0.8 [facility] Monocytes/100 WBC Auto (Bld) Ordered By: Jesus Petersen on 06-04-2022 Monocytes/100 WBC (Bld) 5.6 % . [facility] Neutrophils Auto (Bld) [#/Vo l]Ordered By: Jesus Petersen on 06-04-2022 Neutrophils (Bld) [#/Vol] 10.1 10*3/uL 1.8-7.7 [facility] Neutrophils/100 WBC Auto (Bl d)Ordered By: Jesus Petersen on 06-04-2022 Neutrophils/100 WBC (Bld) 71.1 % . [facility] Nitrite Test strip Ql (U)Ord ered By: Jesus Petersen on 06-04-2022 Nitrite Ql (U) Negative Negative [facility] Platelet mean volume Auto (B ld) [Entitic vol]Ordered By: Jesus Petersen on 06-04-2022 Platelet mean volume (Bld) [Entitic vol] 9.8 fL 6.3-10.7 [facility] Platelets Auto (Bld) [#/Vol] Ordered By: Jesus Peteresn on 06-04-2022 Platelets (Bld) [#/Vol] 321 10*3/uL 150-450 [facility] Protein Auto test strip (U) [Mass/Vol]Ordered By: Jesus Petersen on 06-04-2022 Protein (U) [Mass/Vol] Negative Negative [facility] RBC Auto (Bld) [#/Vol]Ordere d By: Jesus Petersen on 06-04-2022 RBC (Bld) [#/Vol] 4.37 10*6/uL 3.60-5.00 [facility] Specific gravity Auto test s trip (U) [Rel density]Ordered By: Jesus Petersen on 06-04-2022 Specific gravity (U) [Rel density] 1.008 1.001-1.03 0 [facility] Squamous epithelial cells de tection in urine sediment by light microscopyOrdered By: Jesus Petersen on 06-04-2022 Epithelial cells.squamous LM Ql (Urine sed) 1-2 [HPF] 0-2 [facility] Urine bacteria detection by automated methodOrdered By: Jesus Petersen on 06-04-2022 Bacteria Auto Ql (U) None seen None Seen [facility] Urine clarity by refractomet ry automatedOrdered By: Jesus Petersen on 06-04-2022 Clarity Refractometry automated (U) Clear Clear [facility] Urine glucose measurement by automated test strip (mass/volume)Ordered By: Jesus Petersen on 06-04-2022 Glucose Auto test strip (U) [Mass/Vol] Normal mg/dL Normal [facility] Urine hemoglobin detection b y automated test stripOrdered By: Jesus Petersen on 06-04-2022 Hemoglobin Auto test strip Ql (U) 3+ Negative [facility] Urine leukocyte esterase det ection by automated test stripOrdered By: Jesus Petersen on 06-04-2022 Leukocyte esterase Auto test strip Ql (U) Negative Negative [facility] Urobilinogen Auto test strip (U) [Mass/Vol]Ordered By: Jesus Petersen on 06-04-2022 Urobilinogen (U) [Mass/Vol] Normal mg/dL Normal [facility] pH Auto test strip (U)Ordere d By: Jesus Petersen on 06-04-2022 pH (U) 6.0 [pH] 5.0-9.0 [facility] Basophils Auto (Bld) [#/Vol] Ordered By: Stephanie Babcock on 05-30-2022 Basophils (Bld) [#/Vol] 0.1 10*3/uL 0.0-0.2 [facility] Basophils/100 WBC Auto (Bld) Ordered By: Stephanie Babcock on 05-30-2022 Basophils/100 WBC (Bld) 0.8 % . [facility] Blood anisocytosis detection Ordered By: Stephanie Babcock on 05-30-2022 Anisocytosis Ql (Bld) Slight [facility] Blood hemoglobin measurement (mass/volume)Ordered By: Stephanie Babcock on 05-30-2022 Hemoglobin (Bld) [Mass/Vol] 10.5 g/dL 11.8-15.4 [facility] Blood leukocytes automated c ount (number/volume)Ordered By: Stephanie Babcock on 05-30-2022 WBC (Bld) [#/Vol] 8.1 10*3/uL 4.5-11.0 [facility] Blood polychromasia detectio n by light microscopyOrdered By: Stephanie Babcock on 05-30-2022 Polychromasia LM Ql (Bld) Slight [facility] COVID-19 Positive/NegativeOr dered By: Jah Almonte on 05-30-2022 SARS-CoV-2 (COVID-19) N gene JUDIT+probe Ql (Resp) Positive Negative [facility] Comment on above: Positive results yonathan l only be called to Providers for the following groups of patients: Pre-Surgical Testing, Emergency Room, and Inpatients. Results called at 1029 on 05/30/22 Testing for SARS-CoV-2 by RT-PCR This test was developed and its performance characteristics determined by [employer] ([employer]) and validated at the [facility]. This test has not been FDA cleared [...] developed and its performance characteristics determined by [employer] ([employer]) and validated at the [facility]. This test has not been FDA cleared [...] (COVID-19) Ag IA.rapid Ql (Resp) Positive Negative [facility] Comment on above: This is a duplicate Laura SARS Antigen (JESSICA) result to be used for statistical tracking purpose only. Eosinophils Auto (Bld) [#/Vo l]Ordered By: Stephanie Babcock on 05-30-2022 Eosinophils (Bld) [#/Vol] 0.1 10*3/uL 0.0-0.45 [facility] Eosinophils/100 WBC Auto (Bl d)Ordered By: Stephanie Babcock on 05-30-2022 Eosinophils/100 WBC (Bld) 1.5 % . [facility] Erythrocyte distribution wid th Auto (RBC) [Ratio]Ordered By: Stephanie Babcock on 05-30-2022 Erythrocyte distribution width (RBC) [Ratio] 16.1 % 11.9-15.3 [facility] Hematocrit Auto (Bld) [Volum e fraction]Ordered By: Stephanie Babcock on 05-30-2022 Hematocrit (Bld) [Volume fraction] 33.6 % 34.0-46.4 [facility] Hypochromia detectionOrdered By: Stephanie Babcock on 05-30-2022 Hypochromia Ql (Bld) Moderate [facility] - Hematology and Cell countsOrdered By: Stephanie Babcock on 05-30-2022 Nucleated RBC/100 WBC (Bld) [Ratio] 0.0 % 0-0.5 [facility] Lymphocytes Auto (Bld) [#/Vo l]Ordered By: Stephanie Babcock on 05-30-2022 Lymphocytes (Bld) [#/Vol] 2.1 10*3/uL 1.00-4.8 [facility] Lymphocytes/100 WBC Auto (Bl d)Ordered By: Stephanie Babcock on 05-30-2022 Lymphocytes/100 WBC (Bld) 26.5 % . [facility] MCH Auto (RBC) [Entitic mass ]Ordered By: Stephanie Babcock on 05-30-2022 MCH (RBC) [Entitic mass] 24.0 pg 24.7-34.3 [facility] MCHC Auto (RBC) [Mass/Vol]Or dered By: Stephanie Babcock on 05-30-2022 MCHC (RBC) [Mass/Vol] 31.1 g/dL 32.0-35.0 [facility] MCV Auto (RBC) [Entitic vol] Ordered By: Stephanie Babcock on 05-30-2022 MCV (RBC) [Entitic vol] 77.0 fL 80-100 [facility] Monocytes Auto (Bld) [#/Vol] Ordered By: Stephanie Babcock on 05-30-2022 Monocytes (Bld) [#/Vol] 0.6 10*3/uL 0.0-0.8 [facility] Monocytes/100 WBC Auto (Bld) Ordered By: Stephanie Babcock on 05-30-2022 Monocytes/100 WBC (Bld) 7.2 % . [facility] Neutrophils Auto (Bld) [#/Vo l]Ordered By: Stephanie Babcock on 05-30-2022 Neutrophils (Bld) [#/Vol] 5.2 10*3/uL 1.8-7.7 [facility] Neutrophils/100 WBC Auto (Bl d)Ordered By: Stephanie Babcock on 05-30-2022 Neutrophils/100 WBC (Bld) 64.0 % . [facility] No Panel InformationOrdered By: Stephanie Babcock on 05-30-2022 Large Platelets Moderate [facility] Platelet Estimate Normal Normal [facility] Platelet Morphology Comment N/A [facility] No Panel InformationOrdered By: Jah Almonte on 05-30-2022 SARS Antigen (LFIA) [facility] Platelet mean volume Auto (B ld) [Entitic vol]Ordered By: Stephanie Babcock on 05-30-2022 Platelet mean volume (Bld) [Entitic vol] 9.6 fL 6.3-10.7 [facility] Platelets Auto (Bld) [#/Vol] Ordered By: Stephanie Babcock on 05-30-2022 Platelets (Bld) [#/Vol] 235 10*3/uL 150-450 [facility] RBC Auto (Bld) [#/Vol]Ordere d By: Stephanie Sadiq on 05-30-2022 RBC (Bld) [#/Vol] 4.36 10*6/uL 3.60-5.00 [facility] RBC morphologyOrdered By: Karin Babcock on 05-30-2022 RBC morphology finding Nom (Bld) N/A [facility] .Auto Diff 1on 05-29-2022 Auto Fannin % 5 % Normal 1-12 [place] Comment on above: Performed By: #### 1 [id number], [id number], 6045625, 1741965, [id number], 1168549, 2912071 #### [facility] (DEFAULT) [address] [place] [address] Baso Abs# 0.0 x10 Normal 0.0-0.2 [place] Comment on above: Performed By: #### 1 [id number], 81219388, 6471222, 3738860, [id number], 6859075, 7830368 #### [facility] (DEFAULT) [address] [place] [address] 63194 Basophils/100 WBC (Bld) 0.1 % Low 0.2-2.0 [place] Comment on above: Performed By: #### 1 [id number], 61575282, 6182450, 1255350, 6358807278, 3266863, 1814016 #### [facility] (DEFAULT) [address] [place] [address] 85013 Eos Abs# 0.1 x10 Normal 0.0-0.4 [place] Comment on above: Performed By: #### 1 [id number], 73954401, 9555558, 6501588, 7781594418, 5017647, 9735095 #### [facility] (DEFAULT) [address] [place] [address] 56322 Eosinophils/100 WBC (Bld) 0.8 % Low 0.9-4.0 [place] Comment on above: Performed By: #### 1 [id number], 21114444, 2097043, 3732125, 1225080848, 3949184, 1892240 #### [facility] (DEFAULT) [address] [place] [address] Lymph Abs# 1.6 x10 Normal 1.3-2.9 [place] Comment on above: Performed By: #### 1 [id number], 94598127, 0894067, 5644344, 2140164787, 7130471, 4659781 #### [facility] (DEFAULT) [address] [place] [address] Lymphocytes/100 WBC (Bld) 15 % Normal 14-48 [place] Comment on above: Performed By: #### 1 [id number], 94533830, 1445914, 9799389, 0753518556, 8094591, 7947112 #### [facility] (DEFAULT) [address] [place] [address] Fannin Abs# 0.5 x10 Normal 0.0-0.8 [place] Comment on above: Performed By: #### 1 [id number], 07861274, 4795684, 3684999, 0951837740, 8670000, 7245726 #### [facility] (DEFAULT) [address] [place] [address] Neut Abs# 8.5 x10 Normal 1.5-9.2 [place] Comment on above: Performed By: #### 1 [id number], 35186060, 6587954, 6882257, 3735188441, 8992238, 7181095 #### [facility] (DEFAULT) [address] [place] [address] Neutrophils/100 WBC (Bld) 80 % Normal 44-88 [place] Comment on above: Performed By: #### 1 [id number], 17012466, 3935197, 5591675, 1039982469, 9797356, 0811525 #### [facility] (DEFAULT) [address] [place] [address] CBC w/ Auto Diffon 08-02-202 2 Erythrocyte distribution width (RBC) [Ratio] 16.5 % High 11.5-15.0 [place] Comment on above: Performed By: #### 1 [id number], 06950901, 1883774, 7948104, 8281590746, 4309249, 1675983 #### [facility] (DEFAULT) [address] [place] [address] Hematocrit (Bld) [Volume fraction] 36.0 % Normal 33.7-40.4 [place] Comment on above: Performed By: #### 1 [id number], 43810150, 1876583, 6322250, 7258415911, 4794982, 8770195 #### [facility] (DEFAULT) [address] [place] [address] Hemoglobin (Bld) [Mass/Vol] 11.2 g/dL Low 11.3-15.9 [place] Comment on above: Performed By: #### 1 [id number], 78984942, 9635397, 7413142, 8542852999, 2491919, 5028137 #### [facility] (DEFAULT) [address] [place] [address] Instr WBC 10.7 x10 Invalid Interpretation Code [place] Comment on above: Performed By: #### 1 [id number], 59967716, 3824805, 2126487, 1162052647, 8211031, 4137171 #### [facility] (DEFAULT) [address] [place] [address] Man Diff? Auto Normal [place] Comment on above: Performed By: #### 1 [id number], 10875229, 1751364, 1088789, 5207356676, 8694434, 9656017 #### [facility] (DEFAULT) [address] [place], [place] [address] MCH (RBC) [Entitic mass] 24 pg Normal 24-34 [facility] Comment on above: Performed By: #### 1 [id number], 78456423, 0676875, 7042336, 5645868227, 5413817, 5462004 #### [facility] (DEFAULT) [address] [place] [address] MCHC (RBC) [Mass/Vol] 31 g/dL Normal 26-37 [facility] Comment on above: Performed By: #### 1 [id number], 77166128, 1074154, 3147269, 7859525381, 7210957, 5916633 #### [facility] (DEFAULT) [address] [place] [address] MCV (RBC) [Entitic vol] 78 fL Low 81-100 [place] Comment on above: Performed By: #### 1 [id number], 51431769, 3440702, 8153549, 3078167105, 9105540, 6385224 #### [facility] (DEFAULT) [address] [place] [address] Platelet 261 x10 Normal 138-427 [place] Comment on above: Performed By: #### 1 [id number], 96063737, 9624260, 7817021, 2510117722, 2215694, 2311150 #### [facility] (DEFAULT) [address] [place] [address] Platelet mean volume (Bld) [Entitic vol] 11.9 fL High 6.3-10.2 [place] Comment on above: Performed By: #### 1 [id number], 80474421, 7537093, 3934341, 9153036112, 6577244, 0431464 #### [facility] (DEFAULT) [address] [place] [address] RBC 4.62 x10 Normal 3.70-5.30 [place] Comment on above: Performed By: #### 1 [id number], 84431415, 5066759, 8623477, 6030067487, 1462144, 1726160 #### [facility] (DEFAULT) [address] [place] [address] WBC 10.7 x10 High 3.5-10.5 [place] Comment on above: Performed By: #### 1 [id number], 03616888, 4808344, 7808155, 1406487678, 3296374, 9408213 #### [facility] (DEFAULT) [address] [place] [address] 50005 CMP Standardon 05-29-2022 eGFR Non AA >60 Invalid Interpretation Code [place] Comment on above: Performed By: #### 3 [id number], 62361736, [id number] #### [facility] (DEFAULT) [address] [place] [address] 72718 eGFR AA >60 Invalid Interpretation Code [place] Comment on above: Result Comment: [employer] Kidney disease could be indicated at eGFRs of less than 60 ml/min/1.73m2. Kidney Failure is indicated at less than 15 ml/min/1.73m2 Performed By: #### 3 [id number], 53870247, 5205404214 #### [facility] (DEFAULT) [address] [place] [address] 90517 Albumin [Mass/Vol] 4.0 g/dL Normal 3.5-5.0 [facility] Comment on above: Performed By: #### 3 33223844, 47524850, 6005234279 #### [facility] (DEFAULT) [address] [place] [address] 36800 Albumin/Globulin [Mass ratio] 1.4 {ratio} Normal 1.4-2.6 [place] Comment on above: Performed By: #### 3 [id number], 30704836, 9921975762 #### [facility] (DEFAULT) [address] [place] [address] 20996 Alk Phos 91 IU/L Normal 32-91 [place] Comment on above: Performed By: #### 3 [id number], 37425994, 9303730162 #### [facility] (DEFAULT) [address] [place] [address] 39053 ALT [Catalytic activity/Vol] 18.0 U/L Normal 14.0-54.0 [facility] Comment on above: Performed By: #### 3 66033094, 81943341, 9544810983 #### [facility] (DEFAULT) [address] [place] [address] 69041 Anion gap [Moles/Vol] 13.0 mmol/L Normal 5.0-19.0 [facility] Comment on above: Performed By: #### 3 [id number], 54867467, [id number] #### [facility] (DEFAULT) [address] [place] [address] 67581 AST [Catalytic activity/Vol] 22 U/L Normal 15-41 [place] Comment on above: Performed By: #### 3 [id number], 32385607, [id number] #### [facility] (DEFAULT) [address] [place] [address] 24686 Bili Total 0.3 mg/dL Normal 0.3-1.2 [place] Comment on above: Performed By: #### 3 11274311, 70287236, 2848546826 #### [facility] (DEFAULT) [address] [place] [address] 62645 Calcium [Mass/Vol] 8.8 mg/dL Low 8.9-10.3 [facility] Comment on above: Performed By: #### 3 [id number], 80814787, 8592616977 #### [facility] (DEFAULT) [address] [place] [address] 39464 Chloride [Moles/Vol] 103 mmol/L Normal 101-111 [facility] Comment on above: Performed By: #### 3 66045812, 60028399, 7545539608 #### [facility] (DEFAULT) [address] [place] [address] 90740 CO2 [Moles/Vol] 24 mmol/L Normal 21-32 [place] Comment on above: Performed By: #### 3 [id number], 78679409, [id number] #### [facility] (DEFAULT) [address] [place] [address] 41928 Creatinine [Mass/Vol] 0.76 mg/dL Normal 0.60-1.30 [facility] Comment on above: Performed By: #### 3 75077308, 47914604, 5653611305 #### [facility] (DEFAULT) [address] [place] [address] 88422 Globulin (S) [Mass/Vol] 2.9 g/dL Normal 1.5-4.3 [facility] Comment on above: Performed By: #### 3 19390129, 73733443, 6904060857 #### [facility] (DEFAULT) [address] [place] [address] 78395 Glucose [Mass/Vol] 171.0 mg/dL High 74.0-118.0 [facility] Comment on above: Performed By: #### 3 [id number], 39815768, 6584393319 #### [facility] (DEFAULT) [address] [place] [address] 15441 Osmolality 279 mOsm/L Invalid Interpretation Code [facility] Comment on above: Performed By: #### 3 [id number], 95605485, 5346960348 #### [facility] (DEFAULT) [address] [place] [address] 29649 Potassium [Moles/Vol] 3.1 mmol/L Low 3.6-5.1 [facility] Comment on above: Performed By: #### 3 [id number], 11062738, 3509631273 #### [facility] (DEFAULT) [address] [place] [address] 49488 Protein [Mass/Vol] 6.9 g/dL Normal 6.5-8.1 [facility] Comment on above: Performed By: #### 3 [id number], 39961416, 7571036927 #### [facility] (DEFAULT) [address] [place] [address] 47635 Sodium [Moles/Vol] 137.0 mmol/L Normal 136.0-144 . 0 [place] Comment on above: Performed By: #### 3 [id number], 36227378, 3904630538 #### [facility] (DEFAULT) [address] [place] [address] 25254 Urea nitrogen [Mass/Vol] 16 mg/dL Normal 8-26 [facility] Comment on above: Performed By: #### 3 [id number], 46172180, 8478930705 #### [facility] (DEFAULT) [address] [place] [address] 11166 Urea nitrogen/Creatinine [Mass ratio] 21.0 mg/mg High 4.6-16.2 [facility] Comment on above: Performed By: #### 3 [id number], 05856904, [id number] #### [facility] (DEFAULT) [address] [place] [address] ED Clinical Summaryon 2021 ED Clinical Summary [facility] - Emergency Department [address] [place] [address] ED Clinical Summary PERSON INFORMATION Name: NE KEITA Age: 36 Years Sex: FEMALE : 1985 MRN: Acct#: Visit Reason: VAGINAL BLEEDING Arrival: 05/29/2022 16:07:55 Discharge: 05/29/2022 19:00:00 LOS: 000 02:53 Check In: 05/29/2022 16:07:55 Checkout:05/29/2022 19:00:00 Address: [address] [place] [address] PCP: Provider, None PROVIDER INFORMATION Provider Role Assigned Unassigned Kaiden Mcduffie PA-C ED PA 05/29/2022 16:09:09 Yahaira Espana MECHANICAL RESEARCH ENGINEER Nurse 05/29/2022 16:58:49 VITALS INFORMATION Vital Sign Triage Latest Temperature Tympanic Temperature Temporal Artery Pulse Rate 96 bpm 96 bpm O2 Sat 97 % 97 % Respiratory Rate 18 br/min 18 br/min Blood Pressure /71 mmHg /71 mmHg MEDICAL INFORMATION Medications Given: Allergy Information: Bowman; Latex Allergy; penicillins; codeine PHYSICIAN DOCUMENTATION Patient: [...] scheduled to have a hysterectomy with her party host/hostess Dr. Babcock at [facility] around the 13 of July. Patient states [...] abdominal pain. Patient states she lives in [place] but is here in town for a which she states she was [place] the [place]. States she was eating lunch when she [...] large clot about the size of a stillaguamish. Patient states she continues to have bleeding and has soaked through 4 large pads in which she came into the emergency department for evaluation. Patient states that she has not contacted her party host/hostess in regards to her visit today. She [...] Health Status Allergies: Allergic Reactions (Selected) Moderate Bowman- No reactions were documented. Severity Not Documented [...] Documented Abilify: PO, (more content not included)... [facility] ED Note - Physicianon 2021 ED Note [...] scheduled to have a hysterectomy with her party host/hostess Dr. Babcock at [facility] around the 13 of July. Patient states [...] abdominal pain. Patient states she lives in [place] but is here in town for a which she states she was at the [place]. States she was eating lunch when she [...] large clot about the size of a stillaguamish. Patient states she continues to have bleeding and has soaked through 4 large pads in which she came into the emergency department for evaluation. Patient states that she has not contacted her party host/hostess in regards to her visit today. She [...] Health Status Allergies: Allergic Reactions (Selected) Moderate Bowman- No reactions were documented. Severity Not Documented [...] history: Resolved Rib pain on right side ([id number]): Resolved.. Surgical history: Biopsy cervical cone cold knife on 04/10/2018 at 32 Years. Biopsy cervical cone cold knife on 01/09/2018 at 32 Years. Cervical biopsy ([id number]) on 12/10/2017 at 32 Years. 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 ECC Negative Colposcopy ([id number]) on 12/10/2017 at 32 Years. (more content not included)... [facility] ED Note-Nursingon 05-29-2022 ED Note-Nursing Pt. admitted to the ED via personal vehicle and walked back to room 6. Pt. complains of vaginal bleeding with stillaguamish size clots. Pt. denies any pain or discomfort at this time. Pt. is alert and orientated x4. Pt. has a steady gait. Normal [facility] ED Patient Summaryon 022 ED Patient Summary [facility] - Emergency Department [address] [place] [address] 77951 PATIENT DISCHARGE INSTRUCTIONS Patient Information Name: NE [...] alcohol and/or drug addiction problems; contact the [facility] 20/05 Crisis Hotline -Text 4HGSN mv [phone]. If you received any narcotics, sedation, or [...] any legal documents With: Address: When: [address] [place], [place] [address] Business (1) Within 3 to 5 days Comments: Please follow-up with your party host/hostess in 3 to 5 days. Please contact [...] next 14 days also encouraged by Dr. Babcock. if you have any increased bleeding develop abdominal pain develop weakness you should go to [facility] emergency department, where your party host/hostess is at and where you can be seen if needed. You may return here to the emergency department for any worsening or concerning symptoms. Medication Information: The exam and treatment you received today in the [facility] Emergency Department were for an urgent problem and are not intended as complete care. It is important for you to follow up with a doctor, nurse practitioner, or physician?s printing bindery assistant for ongoing care. If your symptoms [...] so we can reach you if necessary. [facility] has provided you with a complete list of medications post discharge. Please inform your travel cota/provider of your visit and for further instruction on these medications. Any specific questions regarding your chronic medications and dosages should be discussed with your primary care physician(s) and/or pharmacist. New Medications [id number], [address] [place], [place] [id number], [phone] ethinyl estradiol-norethindrone (Loestrin 21 1.5/30 oral tablet) [...] 1 tab(s) Oral 3 times a day. amphetamine-dextroamphetami ne (Adderall 30 mg oral tablet) 1 tab(s) Oral 2 times a day. ARIP (more content not included)... Normal [facility] Extra Redon 05-29-2022 Tube Collected Yes Invalid Interpretation Code [facility] Comment on above: Performed By: #### 1 [id number], 37904232, 9025914, 4163637, 1610901335, 8096545, 7189446 #### [facility] (DEFAULT) [address] [place] [address] 97348 Lactic Acidon 05-29-2022 Lactic Acid 15.2 mg/dL Normal 4.5-19.8 [facility] Comment on above: Performed By: #### 2 [id number] #### [facility] (DEFAULT) [address] [place] [address] 89538 Lipaseon 05-29-2022 Lipase Level 25.0 IU/L Normal 22.0-51.0 [facility] Comment on above: Performed By: #### 1 [id number], 33957190, 0934187, 5732544, 0012617152, 1975677, 4716844 #### [facility] (DEFAULT) [address] [place] [address] 70219 PTon 05-29-2022 INR Coag (PPP) [Relative time] 0.96 {INR} Normal 0.91-1.11 [facility] Comment on above: Performed By: #### 1 [id number], 40689041, 3858436, 7031313, 8708634201, 6311676, 3458828 #### [facility] (DEFAULT) [address] [place] [address] PT 10.4 second(s) Normal 9.7-11.8 [facility] Comment on above: Performed By: #### 1 [id number], 76488681, 0897977, 0738159, 7660763483, 0336073, 5998539 #### [facility] (DEFAULT) [address] [place] [address] 85674 PTTon 05-29-2022 PTT 26 second(s) Normal 25-35 [facility] Comment on above: Performed By: #### 1 [id number], 43229477, 8094606, 5105569, 1823281865, 2007281, 1167272 #### [facility] (DEFAULT) [address] [place] [address] Test Urine 1on U Preg Negative [facility] Comment on above: Performed By: #### 3 [id number], 98040088, [id number] #### [facility] (DEFAULT) [address] [place] [address] U Preg Internal Control Pass [facility] Comment on above: Performed By: #### 3 [id number], 05180392, [id number] #### [facility] (DEFAULT) [address] [place] [address] 19017 UA Occam3gl 05-29-2022 UA Bacteria None [facility] Comment on above: Order Comment: Urina lysis Microscopic order added on by [employer]De[employer]a Expert Rules system. Performed By: #### 3 [id number], 13508489, [id number] #### [facility] (DEFAULT) [address] [place] [address] 57777 UA RBC Gross Blood Normal [facility] Comment on above: Order Comment: Urina lysis Microscopic order added on by [employer] Expert Rules system. Performed By: #### 3 [id number], 09071176, [id number] #### [facility] (DEFAULT) [address] [place], [place] [address] UA WBC None Seen [facility] Comment on above: Order Comment: Urina lysis Microscopic order added on by Discern Expert Rules system. Performed By: #### 3 [id number], 23078782, [id number] #### [facility] (DEFAULT) [address] [place] [address] UA w Culture if Ind Standard on 05-29-2022 Breakpoint UA [facility] Comment on above: Performed By: #### 3 [id number], 36689119, [id number] #### [facility] (DEFAULT) [address] [place] [address] Color (U) Red [facility] Comment on above: Result Comment: Test cannot be satisfactorily determined due to intensely colored urine. Performed By: #### 3 [id number], 76757224, [id number] #### [facility] (DEFAULT) [address] [place] [address] Culture? Not Indicated Invalid Interpretation Code [facility] Comment on above: Result Comment: Resu lt created by rule GL_MAGR_ADD_UA_CULT Performed By: #### 3 [id number], 21276910, [id number] #### [facility] (DEFAULT) [address] [place] [address] Glucose (U) [Mass/Vol] Negative [facility] Comment on above: Performed By: #### 3 [id number], 15861401, [id number] #### [facility] (DEFAULT) [address] [place] [address] Ketones Ql (U) Negative [facility] Comment on above: Performed By: #### 3 [id number], 01247457, [id number] #### [facility] (DEFAULT) [address] [place] [address] Micro? Not Indicated Invalid Interpretation Code [facility] Comment on above: Result Comment: Resu lt created by rule GL_MAGR_ADD_UA_MICRO Result created by rule GL_MAGR_ADD_UA_MICRO Performed By: #### 3 [id number], 94495407, [id number] #### [facility] (DEFAULT) [address] [place] [address] 21192 UA Bilirubin SMALL Abnormal [facility] Comment on above: Performed By: #### 3 [id number], 41393394, [id number] #### [facility] (DEFAULT) [address] [place] [address] 06997 UA Blood LARGE Abnormal NEGATIVE [facility] Comment on above: Performed By: #### 3 [id number], 14836143, [id number] #### [facility] (DEFAULT) [address] [place] [address] UA Clarity TURBID Abnormal CLEAR [place] Comment on above: Performed By: #### 3 [id number], [id number], [id number] #### [facility] (DEFAULT) [address] [place] [address] UA Leuk Est Negative Normal NEGATIVE [place] Comment on above: Performed By: #### 3 [id number], [id number], [id number] #### [facility] (DEFAULT) [address] [place] [address] UA Nitrite Negative Normal NEGATIVE [place] Comment on above: Performed By: #### 3 [id number], [id number], [id number] #### [facility] (DEFAULT) [address] [place] [address] UA pH 6.0 Normal 5-8 [place] Comment on above: Performed By: #### 3 [id number], [id number], [id number] #### [facility] (DEFAULT) [address] [place] [address] UA Protein >=300 Abnormal NEGATIVE [place] Comment on above: Performed By: #### 3 [id number], [id number], [id number] #### [facility] (DEFAULT) [address] [place] [address] UA Spec Grav >=1.030 Normal 1.001-1.[address] [place] [address] Comment on above: Performed By: #### 3 [id number], [id number], [id number] #### [facility] (DEFAULT) [address] [place] [address] UA Urobilinogen 1.0 mg/dL Normal 0.2-1.0 [place] Comment on above: Performed By: #### 3 [id number], [id number], [id number] #### [facility] (DEFAULT) [address] [place] [address] Urine Source Clean Catch Normal [place] Comment on above: Performed By: #### 3 [id number], [id number], [id number] #### [facility] (DEFAULT) [address] [place] [address] No Panel InformationOrdered By: Farhat Castro on 04-07-2022 SARS Antigen (LFIA) [facility] COVID-19 SOFIAOrdered By: Simone Casrto on 04-06-2022 SARS-CoV+SARS-CoV-2 (COVID-19) Ag IA.rapid Ql (Resp) Negative Negative [facility] Comment on above: This is a duplicate Laura SARS Antigen (JESSICA) result to be used for statistical tracking purpose only. ANES Jeaneth 04-10-2018 ANES POST HNO ID: [id number] thor: Renato Cruz, IService: AnesthesiologyAuthor Type: AnesthesiologistType: Anesthesia PostOpFiled: 04/10/2018 8:52 [...] Remarks:SIGNATURE: Renato Cruz MD PATIENT NAME: Ne VitalioDATE: April 10, 2018 : 8:51 AM PAGER/CONTACT #: [phone] [facility] ANES PREOPon 04-10-2018 ANES PREOP HNO ID: [id number] thor: Renato Cruz IService: AnesthesiologyAuthor Type: AnesthesiologistType: Anesthesia PreOpFiled: 04/10/2018 7:20 AMNote Text: ANESTHESIOLOGY DAY OF SURGERY NOTESERVICE DATE: 04/10/2018SERVICE TIME: 7:19 AMDOB: 1985Procedure(s) (LRB):COLD KNIFE CONIZATION OF UTERINE CERVIX W/ DANDC (N/A)Surgeon(s):Mary TreadwellEstimated body mass index is 43.6 kg/m? as calculated from the following: Height as of 04/01/18: 162.6 cm (5' 4 ). Weight as of 04/01/18: 115.2 kg (254 lb).Most recent hematocrit and potassium results:Hematocrit 48.3 04/01/2018Potassium 4.2 04/01/2018ANES DOS/PREOP NOTE:Vitals: 705BP: 121/57Pulse: 70Resp: 18Temp: 36.4 ?C (97.5 ?F)TempSrc: [...] encounter.Current Outpatient Prescriptions on File Prior to Encounter:Amphetamine-Dextr oamphetamine (ADDERALL) 30 mg tablet Take 30 mg by mouthtwice daily.gabapentin (NEURONTIN) 300 mg capsule Take 300 mg by mouth three timesdaily.ibuprofen (MOTRIN) 600 mg tablet Take 1 tablet by mouth every 6 hours asneeded for Pain.MULTIVIT-MINERALS/FERR OUS FUM (MULTI VITAMIN ORAL) Take by mouth [...] mg injection (XYLOCAINE) 0.1-0.2 mLINTRADERMAL PRN Rafal (Plating Department Helper) Gargalianoslactated ringers infusion 5-30 mL/hr INTRAVENOUS CONTINUOUS Rafal (Plating Department Helper)Gargalianos Last Rate: 30 mL/hr at 04/10/18 0707 [...] contains updated information obtained within 48 hours ofSurgery/Procedure.SIGNATU RE: Renato Cruz MD PAT[facility]: April 10, 2018 : 7:19 AM CSN: [id number] [facility] OPERATIVE NOon 04-10-2018 OPERATIVE NO HNO ID: [id number] thor: Mary Reyezervice: Gynecology OncologyAuthor Type: PhysicianType: Operative ReportFiled: 04/14/2018 8:59 AMNote Text:OPERATIVE/PROCEDURE REPORTLOG ID: [id number]/PROCEDURE DATE: 04/10/2018INCISION/PROCEDURE START TIME: 7:59 AMINCISION CLOSE/PROCEDURE END TIME: 8:14 AMSURGEON(S)/PROCEDURALIST( S) AND JEWELRY COATER(S):Surgeon(s) and Role: * Mary Treadwell - Primary [...] was inserted into the vagina and a Fidelity wasused to achieve exposure to the cervix. [...] to the recovery room in a stable condition??Pre-Op/Pre-Proce dure Diagnosis:?Cervical dysplasia??Post-Op/Post-Pro cedure Diagnosis:?Same ?Estimated Blood Loss:?20?mls??Specimens:?ce rvical cone and ECC??Implantable Devices:?None??Drains:?None ??Complications: None??I performed the procedure with assistance.?SIGNATURE: Mary Treadwell MD PATIENT NAME: Ne CarranzaATE: April 10, 2018 : 10:44 AM PAGER/CONTACT #: [facility] PLAN OF CAREon 04-10-2018 PLAN OF CARE HNO ID: [id number] thor: Rehana Avila ([employer])Service: (none)Author Type: (none)Type: Plan of CareFiled: 04/10/2018 11:36 AMNote Text:PHARMACY BEDSIDE DELIVERY SERVICEPatient Name: Ne KeitaMRN: [id number] marked outpatient medications were Filled at: [place] and deliveredto the patient's bedside to picked up at pharmacyMedication ListSTART taking these medicationsoxyCODONE ir 5 mg capsuleCommonly known as: OXYIRTake 1 capsule by mouth every 6 hours as needed for up to 3 days.CONTINUE taking these medicationsABILIFY 10 mg tabletGeneric drug: ARIPiprazoleADDERALL 30 mg tabletGeneric drug: Amphetamine-Dextroamphetami neALPRAZolam 1 mg tabletCommonly known as: XANAXFLUoxetine HCl [...] them or your Primary Care Provider.Rehana Avila ([employer])PAGER: [phone] 2017 11:36 AM [facility] PLAN OF CARE HNO ID: [id number] thor: Rehana Avila ([employer])Service: (none)Author Type: (none)Type: Plan of CareFiled: 04/10/2018 9:20 AMNote Text:Pharmacy Discharge Medication Service:This patient has elected [facility] their discharge prescriptions [facility]oughthe [facility] Bedside [facility]. Theprescriptions are currently being processed. A follow-up note will beentered once the prescriptions have been filled and delivered to thepatient. Please contact me with any questions or updates to the patient'sdischarge medications.Rehana Avila ([employer])DCT Contact Info: [id number] [facility] PLAN OF CARE HNO ID: [id number] thor: Rehana Avila ([employer])Service: (none)Author Type: (none)Type: Plan of CareFiled: 04/10/2018 9:20 AMNote Text:AUTOMATIC CLIPPER AND STRIPPER BEDSIDE DELIVERY SURVEY1. Patient to use [facility] Bedside Delivery - YES2. If fax, patient would like us to fax prescriptions to [facility] a. Pharmacy: b. Location: c. Phone:3. Insurance card on file - YES4. Credit card for payment - N/ANo prescriptions yet. Please page [phone] upon discharge. Normal [facility] SURGICAL PATHOLOGYon 018 SURGICAL PATHOLOGY [facility]: [id number] Physician: MARY TREADWELL MD FINAL DIAGNOSIS1. Endocervical curettings (A) - Fragments of benign endocervical tissue.2. Cervix, cone biopsy (B) - Negative for dysplasia. - See comment. COMMENTB. An immunohistochemical stain, with appropriately staining controls, forp16 performed on block B6 was negative.Laboratory Developed Test (LDT) Disclaimer:Positive and negative controls stain appropriately. Performancecharacteristics of immunohistochemical, immunofluorescent and chromogenicin-situ hybridization tests have been determined by [facility] Medicine [place] ([facility]) alireza manner consistent with CLIA requirements. One or more of these tests havenot been cleared or approved by the FDA. [facility] is regulated under CLIA asqualified to perform high-complexity testing. These tests are used forclinical purposes. They should not be regarded as investigational or forresearch.SUMMER/NEERU/ayush 04/13/18Vipin Donahue M.D. Ph.D.(Electronic Signature) SPEC IMEN SUBMITTEDA: ENDOCERVICAL, CURETTINGS B: CERVIX, CONE BIOPSY [...] from 1 to 12 o'clock incorresponding cassettes. WE/justin/04/10/18Gross examination performed at [facility], [address] [place] [address] of Report: 04/15/2018Date of Procedure: 04/10/2018Date of Receipt: 04/10/2018Submitted by: MARY TREADWELL MDLocation: FVORDiagnostic interpretation performed at [facility], [address] [place] [address]. Normal [facility] Comment on above: Performed By: #### P ATHS ####[place] [address] NURSING PROGon 04-09-2018 NURSING PROG HNO ID: [id number] thor: Yani (Rn) CortesSer: (none)Author Type: Registered NurseType: Nursing Progress NoteFiled: 04/09/2018 10:02 AMNote Text:PACC Nurse Progress NoteHistory AND Physical:PACC Visit Date: 0-0-00[facility] HANDP Date: N/AED visit Date: N/AOutside HANDP Scanned Date: N/ALabs Within Last 6 Months:CBC: Date 04-01-18BMP/CMP: Date 04-01-18 WNLResults reviewed and acceptable per anesthesia guidelines for upcomingsurgeryImaging Within Last 12 Months:N/ACardiac Testing:EKG in last 12 Months: Yes: Date: 01-02-18, Comment: Confirmed SRLast Menstrual Period:LMP Date: 6-66-88Hzjifglfkfdydd >1yr: No,S/P Hysterectomy: N/ABMI Percentile (PEDS):N/ARisk Assessment:N/AAnesthesia Review:N/ANarrative:Per PACC HANDP 04-01-18:BMI 44Pre-op Considerations:Significant Anesthesia Considerations: No history of adverse event withanesthesia. Pt. has history scoliosis s/p surgery with Zuniga rodplacement in 1997; she sustained a (right) pneumothorax reported due tothe re-alignment of her spine an anticipated risk. Pt. denies any othercomplications with prior surgeries.Chart Check:Jorge L Rolle RNJune 2017 9:50 AM [facility] CNPN Telephone (GYNML) ------NE KEITA ([id number]) 1985 FDate Time Provider Department04/02/18 ROXY BRANTLEY (RN) GYNML During your visit today, we recorded the following information about you:Roxy Brantley, RN, RN 04/02/2018 9:17 AM SignedCalled patient and LVM to call back for pre-op teachingRoxy Brantley RN, RN 04/04/2018 3:58 PM SignedProcedure: COLD KNIFE CONIZATION OF UTERINE CERVIXPhysician: Dr. Thomasion: [facility]: [phone] AND Time: 04/10/2018 and TIME will be [...] Celebrex MotrinAggrenox Clinoril Naprosyn(naproxen)Agrylin NSAIDS Pepto-BismolAleve Ecotrin PersantineAlka-Castile Excedrin PlaquenilAnacin Heparin PlavixAscriptin Herbals PletalAspergum Ibuprofen TiclidBayer Indocin TrentalBextra Midol VanquishBufferin Gingko Biloba Vitamin E (MVI)MEDICATIONS YOU MAY SUBSTITUTEAnacin 3 Fioricet * Tylenol with codeine *Darvocet N 100 * Plenadol Percocet *Datril Sine-Aide TylenolExcedrin PM(*Denotes prescription needed to obtain these medications)Learning Topic: Procedure/Surgery:Instructi ons reviewed for arrival time, parking and admission.Specific [...] - IV pain medication after surgery, IV TRANSPORTATION SUPERINTENDENT if ordered by MD,discharged home with a prescription for PO pain medication, pain managementafter surgery, side effects of pain medication (including constipation,dizziness, drowsiness, and medication interactions).DVT PROPHYLAXIS - Early ambulation, SCDs, injectable anticoagulants (heparin,lovenox, etc)RESPIRATORY - Incentive spirometer, coughing/deep breathing exercises,ambulation.RETURN TO WORK - As directed by physician, please send any [facility] papers [facility] real [facility] legal secretary.SYMPTOMS TO NOTIFY MD - Fever, chills, nausea, vomiting, increased or severepain, heavy vaginal bleeding, foul smelling vaginal drainage, pain or swellingin extremities.URGENT SYMPTOMS - Call 911 or go to ER if any shortness of breath, difficultybreathing, or chest pain.HOW TO CONTACT PHYSICIAN - Physician's office phone number given to patient, ifafter hours patient instructed to call spooling operator and ask for the doctor nuclear station operator.Patient and family have phone number to call 24 hours/day.Patient Evaluation: Verbalizes understandingPatient and/or family express understanding of upcoming surgery and theoperative process. Questions answered.Follow Up Plan: Follow up as directed by MD.Supplemental Material Given:Pre-operative teaching packet provided to the patient:INPATIENT/OUTPATIEN T printed instructions; Post-operative instruction sheet,bowel prep instruction sheetFor questions contact: office at [phone] By Daiana Brar As of Date: 04/02/2018(No Known Allergies)Date Reviewed: 04/01/2018Reviewed by: Henny El - Fully AssessedReason for Visit: Pre-Op Teaching [134]Prescriptions as of 04/02/2018 Sig: DEXTROAMPHETAMINE-AMPHETAMI NE* Take 30 mg by mouth twice alexandre* [...] medical treatment*INVALID FOR* Myalgia and myositis, unspecified [KWV0958] INVALID FOR* LUCAS III (cervical intraepithelial neoplasia gra*INVALID FOR* More... Morbid obesity (HCC) [E66.01] INVALID FOR* Tobacco abuse [Z72.0] INVALID FOR* Status:Closed by ROXY BRANTLEY on 04/02/18 [facility] HOSPon 03-03-2018 HOSP Patient:Leonard Keita nicolaa DMRN: Height:5' 4 (1.626 m)Weight:254 lb (115.214 kg)Outpatient Medications as of 04/10/18:Amphetamine-Dextroa mphetamine (ADDERALL) 30 mg tabletgabapentin (NEURONTIN) 300 mg capsuleibuprofen (MOTRIN) 600 mg tabletMULTIVIT-MINERALS/LILIA JUMANA FUM (MULTI VITAMIN ORAL)FLUoxetine HCl (PROZAC) 40 [...] with medical treatment [Z91.19]Myalgia and myositis, unspecified [[id number]]LUCAS III (cervical intraepithelial neoplasia grade III) with severe dysplasia[D06.9]Morbid obesity (HCC) [E66.01]Tobacco abuse [Z72.0]Allergies:No Known AllergiesDate Verified:04/10/18Lab ValuesLab Value Units Date High LowPOTA* 4.2 mmol/L 04/01/2018 5.1 3.7HEMA* 48.3 % 04/01/2018 46.0 36.0Progress Notes ([facility]):Roxy Brantley, RN, RN 04/02/2018 9:17 AM SignedCalled patient and LVM to call back for pre-op teachingRoxy Brantley RN, RN 04/04/2018 3:58 PM SignedProcedure: COLD KNIFE CONIZATION OF UTERINE CERVIXPhysician: Dr. Diazcation: [facility]: [phone] AND Time: 04/10/2018 and TIME will be [...] Celebrex MotrinAggrenox Clinoril Naprosyn(naproxen)Agrylin NSAIDS Pepto-BismolAleve Ecotrin PersantineAlka-Castile Excedrin PlaquenilAnacin Heparin PlavixAscriptin Herbals PletalAspergum Ibuprofen TiclidBayer Indocin TrentalBextra Midol VanquishBufferin Gingko Biloba Vitamin E (MVI)MEDICATIONS YOU MAY SUBSTITUTEAnacin 3 Fioricet * Tylenol with codeine *Darvocet N 100 * Plenadol Percocet *Datril Sine-Aide TylenolExcedrin PM(*Denotes prescription needed to obtain these medications)Learning Topic: Procedure/Surgery:Instructi ons reviewed for arrival time, parking and admission.Specific [...] - IV pain medication after surgery, IV TRANSPORTATION SUPERINTENDENT if ordered by MD,discharged home with a prescription for PO pain medication, pain managementafter surgery, side effects of pain medication (including constipation,dizziness, drowsiness, and medication interactions).DVT PROPHYLAXIS - Early ambulation, SCDs, injectable anticoagulants (heparin,lovenox, etc)RESPIRATORY - Incentive spirometer, coughing/deep breathing exercises,ambulation.RETURN TO WORK - As directed by physician, please send any [place] papers [facility] real [facility] legal secretary.SYMPTOMS TO NOTIFY MD - Fever, chills, nausea, vomiting, increased or severepain, heavy vaginal bleeding, foul smelling vaginal drainage, pain or swellingin extremities.URGENT SYMPTOMS - Call 911 or go to ER if any shortness of breath, difficultybreathing, or chest pain.HOW TO CONTACT PHYSICIAN - Physician's office phone number given to patient, ifafter hours patient instructed to call spooling operator and ask for the doctor nuclear station operator.Patient and family have phone number to call 24 hours/day.Patient Evaluation: Verbalizes understandingPatient and/or family express understanding of upcoming surgery and theoperative process. Questions answered.Follow Up Plan: Follow up as directed by MD.Supplemental Material Given:Pre-operative teaching packet provided to the patient:INPATIENT/OUTPATIEN T printed instructions; Post-operative instruction sheet,bowel prep instruction sheetFor questions contact: office at [phone] By Roxy Brantley RN [facility] [place] Telephone (FVPRAD) -------NE KEITA ([id number]) 1985 FDate Time Provider Department01/18/18 JILL FRAIRE (CELESTINE) FVGAURANG During your visit today, we recorded the following information about you:Jill Fraire MD 01/18/2018 9:59 PM SignedPatient had CKC on 01/09/[address] Treadwell, EBL 20cc.She had a large amount of bleeding earlier, called the ambulance. She waspassing blood clots. She denies any pain. She had an exam in the ED and therewas no active bleeding. Her bleeding has decreased. She feels some pressure nowbut no bleeding. Has been out of the ER x 3 hours.She was seen at [facility] ED. She had labwork but was not told anything abouther lab results. She was discharged to home. Reviewed bleeding precautions withher again, she agreeds to re-present to nearest ER if bleeding is severe.Jill Fraire MDGynecologic Oncology FellowF Rfyyrlbkz Mayhugh, RN, RN 01/20/2018 1:27 PM SignedSpoke with patient. She stated that she has had no further bleeding, just veryintermittent scant spotting. Aware of post op appointment on 01/29/2018. Alsoaware if bleeding begins again, local ER.Allergies As of Date: 01/18/2018(No Known Allergies)Date Reviewed: 01/09/2018Reviewed by: Ammy ReyesRn) MATIAS Meyers - Fully AssessedReason for Visit: [...] Take 1 mg by mouth as needed.* DEXTROAMPHETAMINE-AMPHETAMI NE* Take 30 mg by mouth once lynn* GABAPENTIN 300 MG CAPSULE Take 300 mg by mouth three ti*Problem List As Of Date 01/18/2018 Noted Resolved IDIOPATHIC SCOLIOSIS [M41.20] INVALID FOR* LUMBAGO [M54.5] INVALID FOR* Chronic pain syndrome [G89.4] INVALID FOR* History of scoliosis [Z87.39] INVALID FOR* Thoracic back pain [M54.6] INVALID FOR* History of noncompliance with medical treatment*INVALID FOR* Myalgia and myositis, unspecified [JGG7253] INVALID FOR* LUCAS III (cervical intraepithelial neoplasia gra*INVALID FOR* More... Morbid obesity (HCC) [E66.01] INVALID FOR* Tobacco abuse [Z72.0] INVALID FOR* Status:Closed by JILL FRAIRE MD on 01/18/18 [facility] ANES Jeaneth 01-09-2018 ANES POST HNO ID: [id number] thor: Matthew Burrellervice: AnesthesiologyAuthor Type: AnesthesiologistType: Anesthesia PostOpFiled: 01/09/2018 1:13 PMNote Text:POST ANESTHESIA EVALUATION NOTESERVICE DATE: 01/09/2018SERVICE TIME: 1309DOB: 1985Vitals: 01/10/1812Temp: 36.2 ?C (97.2 ?F) 36.7 ?C (98.1 ?F) 01/10/1812P: 107/78 136/80 126/79 134/93 01/10/1812Pulse: 81 80 68 84 01/10/1812Resp: 18 20 20 28 01/10/1812SpO2: 98% 95% [...] Remarks:SIGNATURE: Matthew Valderrama MD PATIENT NAME: Ne CarranzaATE: January 09, 2018 : 1:08 PM PAGER/CONTACT #: [phone] [facility] ANES PREOPon 01-09-2018 ANES PREOP HNO ID: [id number] thor: Matthew Landaverde VeberService: AnesthesiologyAuthor Type: AnesthesiologistType: Anesthesia PreOpFiled: 01/09/2018 10:37 AMNote Text:REGIONAL ANESTHESIOLOGY DAY OF SURGERY NOTEPATIENT NAME: Ne KeitaMRN: [id number]: 1985Procedure(s) (LRB):BIOPSY CERVICAL CONE COLD KNIFE (N/A)ENDOCERVICAL [...] 04/25/2017Creatinine 0.55 01/02/2018EKG:normal EKG, normal sinus rhythmVitals: 903BP: 107/78Pulse: 81Resp: 18Temp: 36.2 ?C (97.2 [...] tablet Take 1 mg by mouth as needed.Amphetamine-Dextroam phetamine (ADDERALL) 30 mg tablet Take 30 mg by mouthonce daily.gabapentin (NEURONTIN) 300 mg capsule Take 300 mg by mouth three timesdaily.Inpatient medications reviewed in EPIC.I have interviewed and examined the patient. I have reviewed the medicalrecord and/or the pre-anesthesia evaluation, pertinent labs, and testresults.Significant changes in the patient's condition since the History andPhysical, not otherwise documented in primary service progress notes: NoThis contains updated information obtained within 48 hours ofSurgery/Procedure.SIGNATU RE: Matthew Valderrama MD PATIENT NAME: Ne Mckeon: January 09, 2018 : 10:36 AM PAGER/CONTACT #: [facility] BRIEF OP NOTon 01-09-2018 BRIEF OP NOT HNO ID: [id number] thor: Demetrio Brookeervice: Gynecology OncologyAuthor Type: PhysicianType: Brief Op NoteFiled: 01/09/2018 12:11 PMNote Text:BRIEF OP NOTELOG ID: [id number]/Procedure Date: 01/09/2018Incision/Procedure Start Time: 11:42 AMIncision Close/Procedure End Time: 12:08 PMSurgeon(s)/Proceduralist( s) and Access Liaison(s):Surgeon(s) and Role: * Mary Treadwell - Primary * Demetrio Tuttle - Fellow * Vandana (Emir) Juan C - Resident - AssistingProcedure(s): CKC, ECCAnesthesia: GeneralFindings: Large cervix, ectropion. 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 [D06.9]SIGNATURE: Demetrio Tuttle MD PATIENT NAME: Ne Mckeon: January 09, 2018 : 12:10 PM PAGER/CONTACT #: [phone] [facility] NURSING PROGon 01-09-2018 NURSING PROG HNO ID: [id number] thor: Ammy ReyesRn) Luigi, RNService: NursingAuthor Type: Registered NurseType: Nursing Progress NoteFiled: [...] MATERIAL PROVIDED TO PATIENT: Post op dischargeinstructions. [facility] OPERATIVE NOon 01-09-2018 OPERATIVE NO HNO ID: [id number] thor: Mary Reyezervice: Gynecology OncologyAuthor Type: PhysicianType: Operative ReportFiled: 01/09/2018 6:59 PMNote Text:OPERATIVE/PROCEDURE REPORTLOG ID: [id number]/Procedure Date: 01/09/2018Incision/Procedure Start Time: 11:42 AMIncision Close/Procedure End Time: 12:08 PMSurgeon(s)/Proceduralist( s) and Access Liaison(s):Surgeon(s) and Role: * Mary Treadwell - Primary * Demetrio Tuttle - Fellow * Vandana Irizarry - Resident - AssistingNo Additional StaffProcedure(s):Cervical knife [...] to the recovery room in a stable condition??Pre-Op/Pre-Proce dure Diagnosis:?Cervical dysplasia??Post-Op/Post-Pro cedure Diagnosis:?Same ?Estimated Blood Loss:?20?mls??Specimens:?ce rvical cone and ECC??Implantable Devices:?None??Drains:?None ??Complications: None??I performed the procedure with assistance.SIGNATURE: Mary Treadwell MD PATIENT NAME: Ne VitalioDATE: January 09, 2018 : 6:58 PM PAGER/CONTACT #: [facility] PLAN OF CAREon 01-09-2018 PLAN OF CARE HNO ID: [id number] thor: Alla Robles (Wildland Fire Operations Specialist)Service: (none)Author Type: TechnicianType: Plan of CareFiled: 01/13/2018 9:36 AMNote Text:AUTOMATIC CLIPPER AND STRIPPER BEDSIDE DELIVERY SURVEY1. Patient to use [facility] Bedside Delivery - YES2. If fax, patient would like us to fax prescriptions to [facility] a. Pharmacy: b. Location: c. Phone:3. Insurance card on file - YES4. Credit card for payment - N/A Normal [facility] SURGICAL PATHOLOGYon 018 SURGICAL PATHOLOGY [facility]: [id number] Physician: MARY TREADWELL MD FINAL DIAGNOSIS1. Cervix, cone biopsy (A) - High grade squamous intraepithelial lesion(LUCAS 3) with involvement of endocervical glands.- High grade squamous intraepithelial lesion focally extends to the inkedmargin of excision near the 7 o'clock position.2. Endocervical curettings (B) - Minute fragments of benign endocervicaltissue.Timeet/Mozaico 01/13/2018 Elvia Arce M.D.(Electronic Signature) SPEC IMEN SUBMITTEDA: CERVIX, CONE BIOPSY B: ENDOCERVICAL, CURETTINGS [...] The specimen is entirely filtered in one cassette.WE/justin/01/09/18Gros s examination performed at [facility], [address] [place] [address] of Report: 01/15/2018Date of Procedure: 01/09/2018Date of Receipt: 01/09/2018Submitted by: MARY TREADWELL MDLocation: SORCDiagnostic interpretation performed at [facility], [address] [place] [address]. Normal [facility] Comment on above: Performed By: #### P ATHS ####[place] [address] NURSING PROGo 01-06-2018 NURSING PROG HNO ID: [id number] thor: Aura (Rn) Ada, RNService: (none)Author Type: Registered NurseType: Nursing Progress NoteFiled: 01/06/2018 1:16 PMNote Text:01/06/18 1:00p.m. Notified Dr. Treadwell's office of WBC-14.07. Labs wereordered by her. AMTIAS Coyne [facility] NURSING PROGon 01-02-2018 NURSING PROG HNO ID: [id number] thor: Madison ReyesRn) Chantel RNService: (none)Author Type: Registered NurseType: Nursing Progress [...] >1yr: No,S/P Hysterectomy: NoBMI Percentile (PEDS):N/ARisk Assessment:N/AAnesthesia Review:N/ANarrative:N/APre- op Considerations:N/AChart Check:IN PROGRESS. CMP/CBC in process. Awaiting confirmed EKSundarry MATIAS GoldenJackie 2017 3:34 PM [facility] HOSPon 12-30-2017 HOSP Patient:Leonard Keitaa DMRN: Height:5' 4 (1.626 m)Weight:254 lb (115.214 kg)Outpatient Medications as of 01/09/18:MULTIVIT-MINERALS/F ERROUS FUM (MULTI VITAMIN ORAL)FLUoxetine HCl (PROZAC) 40 mg capsulemeloxicam (MOBIC) 7.5 mg tabletARIPiprazole (ABILIFY) 10 mg tabletALPRAZolam (XANAX) 1 mg tabletAmphetamine-Dextroamp hetamine (ADDERALL) 30 mg tabletgabapentin (NEURONTIN) 300 mg [...] with medical treatment [Z91.19]Myalgia and myositis, unspecified [[id number]]LUCAS III (cervical intraepithelial neoplasia grade III) with severe dysplasia[D06.9]Morbid obesity (HCC) [E66.01]Tobacco abuse [Z72.0]Allergies:No Known AllergiesDate Verified:01/09/18Lab ValuesLab Value Units Date High LowPOTA* 4.0 mmol/L 01/02/2018 5.1 3.7HEMA* 46.5 % 01/02/2018 46.0 36.0Progress Notes (FV PROVIDER ADULT):Rafal Lowe CNP 01/06/2018 2:21 PM SignedReceived [facility] from [facility] elevated at 14KScheduled for surgery this week w call and find out if patient having any abnormal sx/signs of infection?ThanksAntoinette Cha, RN, RN 01/06/2018 3:42 PM SignedCalled pt and she states she feels fineSays she had no fever at PATDenies cough, runny nose, congestion.Denies any s/sx of urinary infectionSays she feels great, just nervous about surgeryProgress Notes ([facility]):Antoinette Cha, RN, RN 01/03/2018 1:21 PM SignedPre-op teachingProcedure: Beau rosenthal, eccPhysician: Dr. Diazcation: [facility]: [phone] AND Time: 01/09/18MEDICAL CLEARANCE: No CARDIAC CLEARANCE: [...] Celebrex MotrinAggrenox Clinoril Naprosyn(naproxen)Agrylin NSAIDS Pepto-BismolAleve Ecotrin PersantineAlka-Castile Excedrin PlaquenilAnacin Heparin PlavixAscriptin Herbals PletalAspergum Ibuprofen [...] - IV pain medication after surgery, IV TRANSPORTATION SUPERINTENDENT if ordered by MD,discharged home with a prescription for PO pain medication, pain managementafter surgery, side effects of pain medication (including constipation,dizziness, drowsiness, and medication interactions).DVT PROPHYLAXIS - Early ambulation, SCDs, injectable anticoagulants (heparin,lovenox, etc)RESPIRATORY - Incentive spirometer, coughing/deep breathing exercises,ambulation.RETURN TO WORK - As directed by physician, please send any [facility] papers [facility] legal secretary.SYMPTOMS TO NOTIFY MD - Fever, chills, nausea, vomiting, increased or severepain, heavy vaginal bleeding, foul smelling vaginal drainage, pain or swellingin extremities.URGENT SYMPTOMS - Call 911 or go to ER if any shortness of breath, difficultybreathing, or chest pain.HOW TO CONTACT PHYSICIAN - Physician's office phone number given to patient, ifafter hours patient instructed to call spooling operator and ask for the doctor nuclear station operator.Patient and family have phone number to call 24 hours/day.Patient Evaluation: Verbalizes understandingPatient and/or family express understanding of upcoming surgery and theoperative process. Questions answered.Follow Up Plan: Follow up as neededSupplemental Material Given:Pre-operative teaching packet provided to the patient:INPATIENT/OUTPATIEN T printed instructions; Post-operative instruction sheet,bowel prep instruction sheetFor questions contact: office at [phone] By Antoinette Cha RN [facility] HOSP Patient Update (FVPRAD) -------NE KEITA ( ) 1985 [facility] Time Provider Department12/30/17 RAFAL LOWE ([facility]) [facility]AD During your visit today, we recorded the following information about you:Allergies As of Date: 12/30/2017(No Known Allergies)Date Reviewed: 12/29/2017Reviewed by: Mary Treadwell - Fully AssessedOrder(s):SURGICAL REQUEST - ELECTIVE [[id number]] Order #: [id number]: 1Prescriptions as of 12/30/2017 Sig: FLUOXETINE 40 MG CAPSULE Take 40 mg by mouth once lynn* MELOXICAM 7.5 MG TABLET Take 7.5 mg by mouth once alexandre* ARIPIPRAZOLE 10 MG TABLET Take 10 mg by mouth once lynn* ALPRAZOLAM 1 MG TABLET Take 1 mg by mouth as needed.* DEXTROAMPHETAMINE-AMPHETAMI NE* Take 30 mg by mouth once lynn* GABAPENTIN 300 MG CAPSULE Take 300 mg by mouth three ti*Problem List As Of Date 12/30/2017 Noted Resolved IDIOPATHIC SCOLIOSIS [M41.20] INVALID FOR* LUMBAGO [M54.5] INVALID FOR* Chronic pain syndrome [G89.4] INVALID FOR* History of scoliosis [Z87.39] INVALID FOR* Thoracic back pain [M54.6] INVALID FOR* History of noncompliance with medical treatment*INVALID FOR* Myalgia and myositis, unspecified [KIO2587] INVALID FOR* Status:Closed by RAFAL LOWE CNP on 12/30/17 [facility] Vital Signs Date Time Vital Sign Value Performing Clinician Facility 04-26-2025 21:30-0400 Diastolic blood pressure 63 mm[Hg] Enrique Fischer MD Work Phone: [facility] 04-26-2025 21:30-0400 Heart rate 76 /min Enrique Fischer MD Work Phone: [facility] 04-26-2025 21:30-0400 Respiratory rate 16 /min Enrique Fischer MD Work Phone: [facility] 04-26-2025 21:30-0400 SaO2% (BldA) [Mass fraction] 96 % Enrique Fischer MD Work Phone: [facility] 04-26-2025 21:30-0400 Systolic blood pressure 142 mm[Hg] Enrique Fischer MD Work Phone: [facility] 04-26-2025 19:42-0400 Body temperature 97.9 [degF] Enrique Fischer MD Work Phone: [facility] 04-24-2025 11:57-0400 Body temperature 96.49 [degF] Yanni NICHOLS Work Phone: [facility] 04-24-2025 11:57-0400 Diastolic blood pressure 84 mm[Hg] Yanni Nickersonmer PA Work Phone: [facility] 04-24-2025 11:57-0400 Heart rate 70 /min Yanni Nickersonmer PA Work Phone: [facility] 04-24-2025 11:57-0400 SaO2% (BldA) [Mass fraction] 97 % Yanni Nickersonmer PA Work Phone: [facility] 04-24-2025 11:57-0400 Systolic blood pressure 130 mm[Hg] Yanni Nickersonmer PA Work Phone: [facility] 03-09-2025 00:48-0400 Diastolic blood pressure 89 mm[Hg] [facility] Work Phone: [facility] 03-09-2025 00:48-0400 Heart rate 90 /min [facility] Work Phone: [facility] 03-09-2025 00:48-0400 Respiratory rate 20 /min [facility] Work Phone: [facility] 03-09-2025 00:48-0400 SaO2% (BldA) [Mass fraction] 98 % [facility] Work Phone: [facility] 03-09-2025 00:48-0400 Systolic blood pressure 142 mm[Hg] [facility] Work Phone: [facility] 03-08-2025 22:47-0400 Body height 160.02 cm [facility] Work Phone: [facility] 03-08-2025 22:47-0400 Body temperature 98.4 [degF] [facility] Work Phone: [facility] 03-08-2025 22:47-0400 Body weight 132.2 kg [facility] Work Phone: [facility] 12-21-2024 12:58-0500 Body mass index (BMI) [Ratio] 52.43 kg/m2 Stephanie Cruzi DO Work Phone: [facility] 12-21-2024 12:58-0500 Body weight 134.26 kg Stephanie Visci DO Work Phone: [facility] 12-21-2024 12:58-0500 Diastolic blood pressure 82 mm[Hg] Stephanie Visci DO Work Phone: [facility] 12-21-2024 12:58-0500 Systolic blood pressure 138 mm[Hg] Stephanie Visci DO Work Phone: [facility] 03-31-2024 03:20-0400 Diastolic blood pressure 65 mm[Hg] [facility] Work Phone: [facility] 03-31-2024 03:20-0400 Heart rate 62 /min [facility] Work Phone: [facility] 03-31-2024 03:20-0400 Respiratory rate 20 /min [facility] Work Phone: [facility] 03-31-2024 03:20-0400 SaO2% (BldA) [Mass fraction] 96 % [facility] Work Phone: [facility] 03-31-2024 03:20-0400 Systolic blood pressure 138 mm[Hg] [facility] Work Phone: [facility] 03-30-2024 23:43-0400 Body height 160.02 cm [facility] Work Phone: [facility] 03-30-2024 23:43-0400 Body temperature 97.9 [degF] [facility] Work Phone: [facility] 03-30-2024 23:43-0400 Body weight 133.6 kg [facility] Work Phone: [facility] 02-22-2024 21:57-0400 Body height 160.02 cm [facility] Work Phone: [facility] 02-22-2024 21:57-0400 Body temperature 98.7 [degF] [facility] Work Phone: [facility] 02-22-2024 21:57-0400 Body weight 132.6 kg [facility] Work Phone: [facility] 02-22-2024 21:57-0400 Diastolic blood pressure 93 mm[Hg] [facility] Work Phone: [facility] 02-22-2024 21:57-0400 Heart rate 82 /min [facility] Work Phone: [facility] 02-22-2024 21:57-0400 Respiratory rate 18 /min [facility] Work Phone: [facility] 02-22-2024 21:57-0400 SaO2% (BldA) [Mass fraction] 97 % [facility] Work Phone: [facility] 02-22-2024 21:57-0400 Systolic blood pressure 182 mm[Hg] [facility] Work Phone: [facility] 11-15-2023 19:15-0500 Diastolic blood pressure 78 mm[Hg] [facility] Work Phone: [facility] 11-15-2023 19:15-0500 Heart rate 84 /min [facility] Work Phone: [facility] 11-15-2023 19:15-0500 Respiratory rate 20 /min [facility] Work Phone: [facility] 11-15-2023 19:15-0500 SaO2% (BldA) [Mass fraction] 96 % [facility] Work Phone: [facility] 11-15-2023 19:15-0500 Systolic blood pressure 162 mm[Hg] [facility] Work Phone: [facility] 11-15-2023 16:51-0500 Body height 160.02 cm [facility] Work Phone: [facility] 11-15-2023 16:51-0500 Body temperature 97.7 [degF] [facility] Work Phone: [facility] 11-15-2023 16:51-0500 Body weight 128.9 kg [facility] Work Phone: [facility] 08-04-2023 18:16-0400 Body height 160.02 cm [facility] Work Phone: [facility] 08-04-2023 18:16-0400 Body temperature 98.1 [degF] [facility] Work Phone: [facility] 08-04-2023 18:16-0400 Body weight 125.4 kg [facility] Work Phone: [facility] 08-04-2023 18:16-0400 Diastolic blood pressure 84 mm[Hg] [facility] Work Phone: [facility] 08-04-2023 18:16-0400 Heart rate 81 /min [facility] Work Phone: [facility] 08-04-2023 18:16-0400 Respiratory rate 18 /min [facility] Work Phone: [facility] 08-04-2023 18:16-0400 SaO2% (BldA) [Mass fraction] 98 % [facility] Work Phone: [facility] 08-04-2023 18:16-0400 Systolic blood pressure 143 mm[Hg] [facility] Work Phone: [facility] 05-12-2023 18:32-0400 Heart rate 69 /min [facility] Work Phone: [facility] 05-12-2023 16:18-0400 Body height 160.02 cm [facility] Work Phone: [facility] 05-12-2023 16:18-0400 Body temperature 98.5 [degF] [facility] Work Phone: [facility] 05-12-2023 16:18-0400 Body weight 124.6 kg [facility] Work Phone: [facility] 05-12-2023 16:18-0400 Diastolic blood pressure 90 mm[Hg] Services [employer] [facility] Work Phone: [facility] 05-12-2023 16:18-0400 Respiratory rate 18 /min [facility] [employer] Work Phone: [facility] 05-12-2023 16:18-0400 SaO2% (BldA) [Mass fraction] 97 % [facility] [employer] Work Phone: [facility] 05-12-2023 16:18-0400 Systolic blood pressure 140 mm[Hg] Services [facility] [employer] Work Phone: [facility] 03-22-2023 10:30-0400 Body height 160.02 cm Bandar Hart Other [employer] Other 03-22-2023 10:30-0400 Body mass index (BMI) [Ratio] 47.82 kg/m2 Bandar Hart Other [employer] Other 03-22-2023 10:30-0400 Body weight 122.47 kg Bandar Hart Other [employer] Other 03-11-2023 15:30-0400 Body height 160.02 cm Mundokim Willis Other [employer] Other 03-11-2023 15:30-0400 Body mass index (BMI) [Ratio] 47.82 kg/m2 Kamal Tiffanyban Other [employer] Other 03-11-2023 15:30-0400 Body weight 122.47 kg Kamal Chaban Other [employer] Other 03-11-2023 15:30-0400 Diastolic blood pressure 81 mm[Hg] Kamal Chaban Other [employer] Other 03-11-2023 15:30-0400 SaO2% (BldA) [Mass fraction] 95 % Frank Willis Other [employer] [facility] [employer] Other 03-11-2023 15:30-0400 Systolic blood pressure 127 mm[Hg] Frank Wilils Other [facility] [employer] Other 03-06-2023 01:13-0400 Diastolic blood pressure 66 mm[Hg] [facility] Work Phone: [facility] 03-06-2023 01:13-0400 Heart rate 72 /min [facility] Work Phone: [facility] 03-06-2023 01:13-0400 Respiratory rate 18 /min [facility] Work Phone: [facility] 03-06-2023 01:13-0400 SaO2% (BldA) [Mass fraction] 95 % [facility] Work Phone: [facility] 03-06-2023 01:13-0400 Systolic blood pressure 138 mm[Hg] [facility] Work Phone: [facility] 03-05-2023 22:55-0400 Body height 160.02 cm [facility] Work Phone: [facility] 03-05-2023 22:55-0400 Body temperature 98.1 [degF] [facility] Work Phone: [facility] 03-05-2023 22:55-0400 Body weight 124.2 kg [facility] Work Phone: [facility] 02-05-2023 12:36-0400 Diastolic blood pressure 88 mm[Hg] [facility] Work Phone: [facility] 02-05-2023 12:36-0400 Heart rate 80 /min [facility] Work Phone: [facility] 02-05-2023 12:36-0400 Respiratory rate 18 /min [facility] Work Phone: [facility] 02-05-2023 12:36-0400 SaO2% (BldA) [Mass fraction] 100 % [facility] Work Phone: [facility] 02-05-2023 12:36-0400 Systolic blood pressure 138 mm[Hg] [facility] Work Phone: [facility] 02-05-2023 10:42-0400 Body temperature 97.1 [degF] [facility] Work Phone: [facility] 02-05-2023 10:40-0400 Body height 160.02 cm [facility] Work Phone: [facility] 02-05-2023 10:40-0400 Body weight 122 kg [facility] Work Phone: [facility] 01-15-2023 02:26-0400 Diastolic blood pressure 59 mm[Hg] [facility] Work Phone: [facility] 01-15-2023 02:26-0400 Heart rate 69 /min [facility] Work Phone: [facility] 01-15-2023 02:26-0400 Respiratory rate 18 /min [facility] Work Phone: [facility] 01-15-2023 02:26-0400 SaO2% (BldA) [Mass fraction] 100 % [facility] Work Phone: [facility] 01-15-2023 02:26-0400 Systolic blood pressure 122 mm[Hg] [facility] Work Phone: [facility] 01-14-2023 21:31-0400 Body height 160.02 cm [facility] Work Phone: [facility] 01-14-2023 21:31-0400 Body temperature 98 [degF] [facility] Work Phone: [facility] 01-14-2023 21:31-0400 Body weight 122.6 kg [facility] Work Phone: [facility] 01-10-2023 22:30-0400 Diastolic blood pressure 67 mm[Hg] [facility] Work Phone: [facility] 01-10-2023 22:30-0400 Heart rate 75 /min [facility] Work Phone: [facility] 01-10-2023 22:30-0400 Respiratory rate 12 /min [facility] Work Phone: [facility] 01-10-2023 22:30-0400 SaO2% (BldA) [Mass fraction] 97 % [facility] Work Phone: [facility] 01-10-2023 22:30-0400 Systolic blood pressure 144 mm[Hg] [facility] Work Phone: [facility] 01-10-2023 20:11-0400 Body height 160.02 cm [facility] Work Phone: [facility] 01-10-2023 20:11-0400 Body temperature 98 [degF] [facility] Work Phone: [facility] 01-10-2023 20:11-0400 Body weight 125 kg [facility] Work Phone: [facility] 01-10-2023 14:15-0400 Diastolic blood pressure 80 mm[Hg] [facility] Work Phone: [facility] 01-10-2023 14:15-0400 Heart rate 80 /min [facility] Work Phone: [facility] 01-10-2023 14:15-0400 Systolic blood pressure 136 mm[Hg] [facility] Work Phone: [facility] 01-10-2023 13:38-0400 Body height 160.02 cm [facility] Work Phone: [facility] 01-10-2023 13:38-0400 Body temperature 98.1 [degF] [facility] Work Phone: [facility] 01-10-2023 13:38-0400 Body weight 123.75 kg [facility] Work Phone: [facility] 01-10-2023 13:38-0400 Respiratory rate 20 /min [facility] Work Phone: [facility] 01-10-2023 13:38-0400 SaO2% (BldA) [Mass fraction] 96 % [facility] Work Phone: [facility] 12-28-2022 00:21-0500 Diastolic blood pressure 64 mm[Hg] [facility] Work Phone: [facility] 12-28-2022 00:21-0500 Heart rate 87 /min [facility] Work Phone: [facility] 12-28-2022 00:21-0500 Respiratory rate 18 /min [facility] Work Phone: [facility] 12-28-2022 00:21-0500 SaO2% (BldA) [Mass fraction] 96 % [facility] Work Phone: [facility] 12-28-2022 00:21-0500 Systolic blood pressure 141 mm[Hg] [facility] Work Phone: [facility] 12-27-2022 21:35-0500 Body temperature 97.9 [degF] [facility] Work Phone: [facility] 12-27-2022 21:34-0500 Body height 160.02 cm [facility] Work Phone: [facility] 12-27-2022 21:34-0500 Body weight 115 kg [facility] Work Phone: [facility] 12-26-2022 01:08-0500 Body height 160.02 cm [facility] Work Phone: [facility] 12-26-2022 01:08-0500 Body temperature 98.1 [degF] [facility] Work Phone: [facility] 12-26-2022 01:08-0500 Body weight 123.1 kg [facility] Work Phone: [facility] 12-26-2022 01:08-0500 Diastolic blood pressure 80 mm[Hg] [facility] Work Phone: [facility] 12-26-2022 01:08-0500 Heart rate 82 /min [facility] Work Phone: [facility] 12-26-2022 01:08-0500 Respiratory rate 20 /min [facility] Work Phone: [facility] 12-26-2022 01:08-0500 SaO2% (BldA) [Mass fraction] 98 % [facility] Work Phone: [facility] 12-26-2022 01:08-0500 Systolic blood pressure 165 mm[Hg] [facility] Work Phone: [facility] 12-24-2022 14:01-0500 Body height 3718.56 cm [facility] Work Phone: [facility] 12-24-2022 14:01-0500 Body temperature 98.2 [degF] [facility] Work Phone: [facility] 12-24-2022 14:01-0500 Body weight 53 kg [facility] Work Phone: [facility] 12-24-2022 14:01-0500 Diastolic blood pressure 90 mm[Hg] [facility] Work Phone: [facility] 12-24-2022 14:01-0500 Heart rate 82 /min [facility] Work Phone: [facility] 12-24-2022 14:01-0500 Respiratory rate 18 /min [facility] Work Phone: [facility] 12-24-2022 14:01-0500 SaO2% (BldA) [Mass fraction] 94 % [facility] Work Phone: [facility] 12-24-2022 14:01-0500 Systolic blood pressure 155 mm[Hg] [facility] Work Phone: [facility] 12-06-2022 00:33-0500 Diastolic blood pressure 78 mm[Hg] [facility] Work Phone: [facility] 12-06-2022 00:33-0500 Heart rate 88 /min [facility] Work Phone: [facility] 12-06-2022 00:33-0500 Respiratory rate 19 /min [facility] Work Phone: [facility] 12-06-2022 00:33-0500 SaO2% (BldA) [Mass fraction] 98 % [facility] Work Phone: [facility] 12-06-2022 00:33-0500 Systolic blood pressure 125 mm[Hg] [facility] Work Phone: [facility] 12-05-2022 22:34-0500 Body height 160.02 cm [facility] Work Phone: [facility] 12-05-2022 22:34-0500 Body temperature 97.7 [degF] [facility] Work Phone: [facility] 12-05-2022 22:34-0500 Body weight 123 kg [facility] Work Phone: [facility] 09-24-2022 09:35-0500 Body height 160.02 cm [facility] Work Phone: [facility] 09-24-2022 09:35-0500 Body temperature 98.2 [degF] [facility] Work Phone: [facility] 09-24-2022 09:35-0500 Body weight 119.2 kg [facility] Work Phone: [facility] 09-24-2022 09:35-0500 Diastolic blood pressure 80 mm[Hg] [facility] Work Phone: [facility] 09-24-2022 09:35-0500 Heart rate 73 /min [facility] Work Phone: [facility] 09-24-2022 09:35-0500 Respiratory rate 16 /min [facility] Work Phone: [facility] 09-24-2022 09:35-0500 SaO2% (BldA) [Mass fraction] 97 % [facility] Work Phone: [facility] 09-24-2022 09:35-0500 Systolic blood pressure 144 mm[Hg] [facility] Work Phone: [facility] 09-13-2022 00:51-0500 Body height 160.02 cm [facility] Work Phone: [facility] 09-13-2022 00:51-0500 Body temperature 97.7 [degF] [facility] Work Phone: [facility] 09-13-2022 00:51-0500 Body weight 120.5 kg [facility] Work Phone: [facility] 09-13-2022 00:51-0500 Diastolic blood pressure 73 mm[Hg] [facility] Work Phone: [facility] 09-13-2022 00:51-0500 Heart rate 82 /min [facility] Work Phone: [facility] 09-13-2022 00:51-0500 Respiratory rate 20 /min [facility] Work Phone: [facility] 09-13-2022 00:51-0500 SaO2% (BldA) [Mass fraction] 99 % [facility] Work Phone: [facility] 09-13-2022 00:51-0500 Systolic blood pressure 145 mm[Hg] [facility] Work Phone: [facility] 09-07-2022 21:37-0500 Diastolic blood pressure 88 mm[Hg] [facility] Work Phone: [facility] 09-07-2022 21:37-0500 Heart rate 81 /min [facility] Work Phone: [facility] 09-07-2022 21:37-0500 Respiratory rate 17 /min [facility] Work Phone: [facility] 09-07-2022 21:37-0500 SaO2% (BldA) [Mass fraction] 97 % [facility] Work Phone: [facility] 09-07-2022 21:37-0500 Systolic blood pressure 168 mm[Hg] [facility] Work Phone: [facility] 09-07-2022 18:34-0500 Body height 160.02 cm [facility] Work Phone: [facility] 09-07-2022 18:34-0500 Body weight 118.6 kg [facility] Work Phone: [facility] 08-04-2022 22:25-0400 Body height 160.02 cm [facility] Work Phone: [facility] 08-04-2022 22:25-0400 Body temperature 98.2 [degF] [facility] Work Phone: [facility] 08-04-2022 22:25-0400 Body weight 118.55 kg [facility] Work Phone: [facility] 08-04-2022 22:25-0400 Diastolic blood pressure 58 mm[Hg] [facility] Work Phone: [facility] 08-04-2022 22:25-0400 Heart rate 74 /min [facility] Work Phone: [facility] 08-04-2022 22:25-0400 Respiratory rate 18 /min [facility] Work Phone: [facility] 08-04-2022 22:25-0400 SaO2% (BldA) [Mass fraction] 98 % Services [facility] Work Phone: [facility] 08-04-2022 22:25-0400 Systolic blood pressure 116 mm[Hg] Services [facility] Work Phone: [facility] 07-14-2022 23:00-0400 Diastolic blood pressure 66 mm[Hg] DO Stephanie Visci Work Phone: [facility] 07-14-2022 23:00-0400 Heart rate 87 /min DO Stephanie Visci Work Phone: [facility] 07-14-2022 23:00-0400 Respiratory rate 17 /min DO Stephanie Visci Work Phone: [facility] 07-14-2022 23:00-0400 SaO2% (BldA) [Mass fraction] 96 % DO Stephanie Visci Work Phone: [facility] 07-14-2022 23:00-0400 Systolic blood pressure 134 mm[Hg] DO Stephanie Visci Work Phone: [facility] 07-14-2022 22:00-0400 Body height 160.02 cm DO Stephanie Visci Work Phone: [facility] 07-14-2022 22:00-0400 Body temperature 98.8 [degF] DO Stephanie Visci Work Phone: [facility] 07-14-2022 22:00-0400 Body weight 119.7 kg DO Stephanie Visci Work Phone: [facility] 07-09-2022 14:55-0400 Diastolic blood pressure 66 mm[Hg] DO Stephanie Visci Work Phone: [facility] 07-09-2022 14:55-0400 Heart rate 89 /min DO Stephanie Visci Work Phone: [facility] 07-09-2022 14:55-0400 Respiratory rate 18 /min DO Stephanie Visci Work Phone: [facility] 07-09-2022 14:55-0400 SaO2% (BldA) [Mass fraction] 93 % DO Stephanie Visci Work Phone: [facility] 07-09-2022 14:55-0400 Systolic blood pressure 131 mm[Hg] DO Stephanie Visci Work Phone: [facility] 07-09-2022 14:35-0400 Inhaled oxygen flow rate 2 L/min DO Stephanie Visci Work Phone: [facility] 07-09-2022 10:10-0400 Body temperature 97.8 [degF] DO Stephanie Visci Work Phone: [facility] 07-09-2022 07:12-0400 Body height 160.02 cm DO Stephanie Visci Work Phone: [facility] 07-09-2022 07:12-0400 Body mass index (BMI) [Ratio] 46 kg/m2 DO Stephanie Visci Work Phone: [facility] 07-09-2022 07:12-0400 Body weight 118 kg DO Stephanie Visci Work Phone: [facility] 06-05-2022 00:30-0400 Diastolic blood pressure 63 mm[Hg] DO Stephanie Visci Work Phone: [facility] 06-05-2022 00:30-0400 Heart rate 60 /min DO Stephanie Visci Work Phone: [facility] 06-05-2022 00:30-0400 Respiratory rate 14 /min DO Stephanie Visci Work Phone: [facility] 06-05-2022 00:30-0400 SaO2% (BldA) [Mass fraction] 97 % DO Stephanie Visci Work Phone: [facility] 06-05-2022 00:30-0400 Systolic blood pressure 135 mm[Hg] DO Stephanie Visci Work Phone: [facility] 06-04-2022 21:24-0400 Body height 160.02 cm DO Stephanie Visci Work Phone: [facility] 06-04-2022 21:24-0400 Body temperature 98 [degF] DO Stephanie Visci Work Phone: [facility] 06-04-2022 21:24-0400 Body weight 118.05 kg DO Stephanie Visci Work Phone: [facility] 05-31-2022 13:59-0400 Diastolic blood pressure 79 mm[Hg] DO Stephanie Visci Work Phone: [facility] 05-31-2022 13:59-0400 Heart rate 69 /min DO Stephanie Visci Work Phone: [facility] 05-31-2022 13:59-0400 Respiratory rate 18 /min DO Stephanie Visci Work Phone: [facility] 05-31-2022 13:59-0400 SaO2% (BldA) [Mass fraction] 98 % DO Stephanie Visci Work Phone: [facility] 05-31-2022 13:59-0400 Systolic blood pressure 146 mm[Hg] DO Stephanie Visci Work Phone: [facility] 05-31-2022 11:46-0400 Body height 160.02 cm DO Stephanie Visci Work Phone: [facility] 05-31-2022 11:46-0400 Body temperature 98.5 [degF] DO Stephanie Visci Work Phone: [facility] 05-31-2022 11:46-0400 Body weight 122.46 kg DO Stephanie Visci Work Phone: [facility] 05-30-2022 12:00-0400 Diastolic blood pressure 79 mm[Hg] DO Stephanie Visci Work Phone: [facility] 05-30-2022 12:00-0400 Heart rate 74 /min DO Stephanie Visci Work Phone: [facility] 05-30-2022 12:00-0400 Respiratory rate 16 /min DO Stephanie Visci Work Phone: [facility] 05-30-2022 12:00-0400 SaO2% (BldA) [Mass fraction] 97 % DO Stephanie Visci Work Phone: [facility] 05-30-2022 12:00-0400 Systolic blood pressure 136 mm[Hg] DO Stephanie Visci Work Phone: [facility] 05-30-2022 08:00-0400 Body temperature 98.6 [degF] DO Stephanie Visci Work Phone: [facility] 05-29-2022 20:10-0400 Body height 160.02 cm DO Stephanie Visci Work Phone: [facility] 05-29-2022 20:10-0400 Body weight 121.1 kg DO Stephanie Visci Work Phone: [facility] 04-06-2022 22:33-0400 Body height 160.02 cm DO Stephanie Visci Work Phone: [facility] 04-06-2022 22:33-0400 Body mass index (BMI) [Ratio] 46.5 kg/m2 DO Stephanie Visci Work Phone: [facility] 04-06-2022 22:33-0400 Body temperature 98.4 [degF] DO Stephanie Visci Work Phone: [facility] 04-06-2022 22:33-0400 Body weight 119.3 kg DO Stephanie Visci Work Phone: [facility] 04-06-2022 22:33-0400 Diastolic blood pressure 87 mm[Hg] DO Stephanie Visci Work Phone: [facility] 04-06-2022 22:33-0400 Heart rate 82 /min DO Stephanie Visci Work Phone: [facility] 04-06-2022 22:33-0400 Respiratory rate 18 /min DO Stephanie Visci Work Phone: [facility] 04-06-2022 22:33-0400 SaO2% (BldA) [Mass fraction] 97 % DO Stephanie Babcock Work Phone: [facility] 04-06-2022 22:33-0400 Systolic blood pressure 168 mm[Hg] DO Stephanie Babcock Work Phone: [facility] Encounters Encounter Date Encounter Type Care Provider Facility Start: 04-26-2025 End: 04-26-2025 Emergency department patient visit Enrique Fischer MD Work Phone: [facility] Emergency Medicine Start: 04-26-2025 End: 04-26-2025 E.D. Visit Nikki GOMEZ [facility] Social Work Comment on above: Trauma/complex Medic al Situation Start: 04-26-2025 Emergency department patient visit UNKNOWN PROVIDER Facility:[facility] Start: 04-24-2025 End: 04-24-2025 ambulatory YANNI CA Not Available Start: 04-24-2025 End: 04-24-2025 Patient encounter procedure Yanni Ca PA Work Phone: [facility] Comment on above: Physical exam, pre-e mployment (Primary Dx) Start: 03-08-2025 End: 03-09-2025 Emergency department patient visit [facility] Work Phone: [facility] Work Phone: Start: 03-06-2025 End: 03-06-2025 Emergency department patient visit BRANDY BRODY [facility] Start: 12-21-2024 End: 12-21-2024 Patient encounter status Stephanie Babcock DO Work Phone: [facility] Start: 12-21-2024 End: 12-21-2024 Periodic preventive med est patient 40-64yrs Stephanie Babcock DO Work Phone: [facility] Comment on above: Encounter for gyneco logical examination with abnormal finding; Encounter for screening mammogram for malignant neoplasm of breast; Vulvar irritation; Smoking; Special screening for malignant neoplasms, vagina; Tinea cruris Start: 12-21-2024 End: 12-21-2024 Bamboo flowsheet Stephanie A Visci DO Work Phone: [facility] Start: 12-21-2024 End: 12-21-2024 Bamboo flowsheet Stephanie A Visci DO Work Phone: [facility] Start: 12-21-2024 End: 12-21-2024 ambulatory STEPHANIE A VISCI Not Available Start: 05-07-2024 End: 05-07-2024 ambulatory TSEPHANIE A VISCI Not Available Start: 03-30-2024 End: 03-31-2024 Emergency department patient visit [facility] Work Phone: [facility] Work Phone: Start: 02-22-2024 End: 02-22-2024 Emergency department patient visit Services [facility] Work Phone: [facility] Work Phone: Start: 02-19-2024 End: 02-19-2024 ambulatory DO Stephanie Visci Work Phone: [facility] Work Phone: Start: 02-19-2024 End: 02-19-2024 Departed Referred DO Stephanie Visci Work Phone: [facility] Start: 11-18-2023 End: 11-18-2023 ambulatory Radha Lagunas Other [facility] Other Start: 11-18-2023 Telephone encounter Radha Lagunas [facility] Start: 11-15-2023 End: 11-15-2023 Emergency department patient visit [facility] Work Phone: [facility] Work Phone: Start: 08-04-2023 End: 08-04-2023 Emergency department patient visit [facility] Work Phone: [facility] Work Phone: Start: 05-12-2023 End: 05-12-2023 Emergency department patient visit [facility] Work Phone: [facility] Work Phone: Start: 04-11-2023 End: 04-11-2023 ambulatory Bandar Hailey Other [employer] Other Start: 04-11-2023 Telephone encounter Bandar CAMP G [facility] Start: 03-22-2023 End: 03-22-2023 ambulatory Bandar Hart Other [employer] Other Start: 03-22-2023 Office outpatient ne w 45 minutes Bandar CHARLES [facility] Start: 03-11-2023 End: 03-11-2023 Patient encounter procedure [facility] Work Phone: [facility] Work Phone: Start: 03-11-2023 End: 03-11-2023 ambulatory [facility] Work Phone: [facility] Work Phone: Start: 03-11-2023 Office outpatient ne w 30 minutes [facility] Start: 03-07-2023 End: 03-08-2023 ambulatory ROXY JACOBSEN Facility:[facility] Start: 03-07-2023 End: 03-07-2023 Patient encounter procedure ROXY JACOBSEN [facility] Start: 03-05-2023 End: 03-06-2023 Emergency department patient visit [facility] Work Phone: [facility] Work Phone: Start: 03-04-2023 End: 03-04-2023 ambulatory [facility] Work Phone: [facility] Work Phone: Start: 03-04-2023 End: 03-04-2023 Patient encounter procedure [facility] Work Phone: [facility]Res[facility] Therapy Work Phone: Start: 02-21-2023 End: 02-21-[address] DONNA BREWER . Facility: Start: 02-05-2023 End: 02-05-2023 Emergency department patient visit [facility] Work Phone: [facility] Work Phone: Start: 01-14-2023 End: 01-15-2023 Emergency department patient visit [facility] Work Phone: [facility] Work Phone: Start: 01-14-2023 ambulatory ROXY JACOBSEN Facility :[facility] Start: 01-10-2023 End: 01-10-2023 ambulatory [facility] Work Phone: [facility] Work Phone: Start: 01-10-2023 End: 01-10-2023 Patient encounter procedure [facility] Work Phone: [facility] [employer] Work Phone: Start: 01-10-2023 End: 01-11-2023 Emergency department patient visit [facility] Work Phone: [facility] Work Phone: Start: 01-10-2023 End: 01-10-2023 Emergency department patient visit [facility] Work Phone: [facility] Work Phone: Start: 12-27-2022 End: 12-28-2022 Emergency department patient visit [facility] Work Phone: [facility] Work Phone: Start: 12-26-2022 End: 12-26-2022 Emergency department patient visit [facility] Work Phone: [facility]Emer[facility] Work Phone: Start: 12-24-2022 End: 12-24-2022 Emergency department patient visit [facility] Work Phone: [facility] Work Phone: Start: 12-05-2022 End: 12-06-2022 Emergency department patient visit [facility] Work Phone: [facility] Work Phone: Start: 11-08-2022 End: 11-08-2022 ambulatory ELVIS ROSE MARY Facility: Start: 09-24-2022 End: 09-24-2022 ambulatory ANNETTE VALLADARES II Facility:[facility] Start: 09-24-2022 End: 09-24-2022 Emergency department patient visit [facility] Work Phone: [facility] Work Phone: Start: 09-13-2022 End: 09-13-2022 Emergency department patient visit [facility] Work Phone: [facility] Start: 09-07-2022 End: 09-07-2022 Emergency department patient visit [facility] Work Phone: [facility] Start: 08-04-2022 End: 08-05-2022 Emergency department patient visit [facility] Work Phone: [facility] Start: 07-14-2022 End: 07-15-2022 Emergency department patient visit DO Stephanie Arroyoi Work Phone: [facility] Start: 07-09-2022 End: 07-09-2022 Admission to same day surgery center DO Stephanie Babcock Work Phone: [facility] [employer] Start: 07-05-2022 End: 07-05-2022 Patient encounter procedure DO Stephanie Visci Work Phone: [facility] [employer] Start: 06-25-2022 End: 06-25-2022 Departed Referred DO Stephanie Visci Work Phone: [facility]Pre[facility]Surgical [facility] Start: 06-25-2022 End: 06-25-2022 Patient encounter procedure DO Stephanie Visci Work Phone: [facility] Start: 06-04-2022 End: 06-05-2022 Emergency department patient visit DO Stephanie Visci Work Phone: [facility] Start: 05-31-2022 End: 05-31-2022 Emergency department patient visit DO Stephanie Visci Work Phone: [facility] Start: 05-29-2022 End: 05-30-2022 Evaluation and management of inpatient DO Stephanie Visci Work Phone: [facility] Start: 05-29-2022 ambulatory Shellie Boone RN [facility] Comment on above: Ovarian Cyst; Vagina l Bleeding Start: 04-06-2022 End: 04-07-2022 Emergency department patient visit DO Stephanie Visci Work Phone: [facility] Start: 04-10-2018 End: 04-10-2018 Ambulatory [facility] Start: 01-09-2018 End: 01-09-2018 [facility] Start: 05-27-2004 Evaluation and management of inpatient DO Stephanie Visci Work Phone: [facility] [address] Procedures Date Procedure Procedure Detail Performing Clinician Start: 04-26-2025 Radex hand minimum 3 views Maritza Ramires DO Work Phone: Start: 04-26-2025 Ct cervical spine w/ o contrast material eBe Sanchez MD Work Phone: Start: 04-26-2025 Ct head/brain w/o co ntrast material Bee Sanchez MD Work Phone: Start: 04-26-2025 Ct thorax w/contrast material Bee Sanchez MD Work Phone: Start: 04-26-2025 Assay of lactate [place] reginald Fischer MD Work Phone: Start: 04-26-2025 Blood typing, ABO, R ho(D) and RBC antibody screening Enrique Fischer MD Work Phone: Start: 04-26-2025 Drug screen quantita tive alcohols Enrique Fischer MD Work Phone: Start: 03-31-2024 SARS-CoV-2, Influenz a & RSV (PCR) [facility] Work Phone: Start: 11-15-2023 CT of abdomen and pe lvis without contrast [facility] Work Phone: Start: 08-04-2023 SARS-CoV-2, Influenz a & RSV (PCR) [facility] Work Phone: Start: 05-12-2023 Plain chest X-ray [facility] [place] [facility] Work Phone: Start: 05-12-2023 SARS Antigen (LFIA) Ser vices [facility] Work Phone: Start: 03-05-2023 X-ray of lumbar spin e, two or three views [facility] Phone: Start: 03-04-2023 Plain chest X-ray [facility] [place] [facility] Work Phone: Start: 02-05-2023 SARS-CoV-2, Influenz a & RSV (PCR) [facility] Phone: Start: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
--- NOTE | 2025-06-02 21:47 | XR_ITS ---
The [address] [address] Patient Name: NE DURHAM MRN: [id number] date: 1985 Sex: F Assigned Patient Location: ER Current Patient Location: ER Accession/Order Number: [id number] Exam Date: 06/02/2025 23:09 Report Date: 06/02/2025 23:10 At the request of: ELVIS BAZZI MD Procedure: XR chest 2V PA AND LATERAL CHEST: CLINICAL HISTORY: cough COMPARISON: 02/18/2025 FINDINGS: Unremarkable cardiomediastinal silhouette. Lungs are clear. No effusion or pneumothorax. Multilevel spinal fusion with Cai rods and cerclage wires. XR/XR chest 2V IMPRESSION: NO ACUTE CARDIOPULMONARY ABNORMALITY. Impression dictated by: Mor Beebe M.D. 06/02/2025 11:10 PM Dictation Location: [place] [address] Electronically authenticated by: [id number] Date: 06/02/2025 23:10
--- NOTE | 2025-06-02 21:48 | ED.DIZZY1 ---
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 has felt ill for past couple of days. occ dizziness occurs when she feels hot . No headache. Mild cough. mild short of breath. mild abdominal pain. States she took Miralax 3 weeks ago and since then has had loose stools. No blood. Related Data Previous Rx's ?Medication ?Instructions ?Recorded methylprednisolone 4 mg tablets in See Rx Instructions .Route 01/19/25 a dose pack (Medrol (Wolfgang)) .COMPLEX #21 ea Allergies Allergy/AdvReac Type Severity Reaction Status Date / Time codeine Allergy Mild Rash Verified 06/02/25 21:24 Penicillins Allergy Unknown Rash Verified 06/02/25 21:24 sulfamethoxazole (From AdvReac Mild itchy Verified 06/02/25 21:24 Bactrim) trimethoprim (From Bactrim) AdvReac Mild itchy Verified 06/02/25 21:24 PFSH PFSH Social History Smoking status: Current every day smoker Little interest or pleasure in doing things: not at all Feeling down, depressed, or hopeless: not at all Exam Constitutional Vital Signs, click to edit/add: Last Vital Signs Temp 97.9 F 06/02/25 21:21 Pulse 80 06/02/25 21:21 Resp 18 06/02/25 21:21 BP 130/80 06/02/25 21:21 Pulse Ox 99 06/02/25 21:21 O2 Del Method Room Air 06/02/25 21:21 Common normals: no apparent distress, average body habitus, oriented x3, no limitations, healthy appearing, alert and well nourished [facility] Common normals: normocephalic, head/scalp atraumatic and hearing grossly normal bilaterally Eye Common normals: EOMs intact bilaterally Respiratory Common normals: normal respiratory effort, no retractions, no use of accessory muscles and clear to auscultation bilaterally Cardio Common normals: regular rate, regular rhythm, S1 normal heart sound and S2 normal heart sound GI Common normals: Normal to inspection, nondistended, normoactive bowel sounds present, soft to palpation and non-tender Extremity Common normals: normal to inspection and full ROM Neuro Common normals: oriented x3, CN's II-XII intact bilaterally and moves all extremities Psych Appearance: grossly normal Course Vital Signs Vital signs: Vital Signs Temperature 97.9 F 06/02/25 21:21 Pulse Rate 80 06/02/25 21:21 Respiratory Rate 18 06/02/25 21:21 Blood Pressure 130/80 06/02/25 21:21 Pulse Oximetry 99 06/02/25 21:21 Oxygen Delivery Method Room Air 06/02/25 21:21 Temperature 97.9 F 06/02/25 21:21 Pulse Rate 80 06/02/25 21:21 Respiratory Rate 18 06/02/25 21:21 Blood Pressure 130/80 06/02/25 21:21 Pulse Oximetry 99 06/02/25 21:21 Oxygen Delivery Method Room Air 06/02/25 21:21 MDM - Dizziness MDM Narrative Medical decision making narrative: presents with sensation of dizziness when she feels hot. Has mild cough. daily smoker. No fever. 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 Diarrhea for past 3 weeks. states started after taking miralax. Exam neg. mildly elevated WBC at 12 but remaining labs WNL including neg COVID19. cxray clear. Patient provided with an inhaler for her cough and sensation of shortness of breath. her RR 18 with RA pulse ox 99% likely has viral illness. Recommend follow up with her doctor in the next couple of days for recheck. Stool sample ordered but patient not able to provide sample. Clinically low suspicion for bacterial diarrhea as she has no fever, benign abdominal exam and mildly elevated WBC Lab Data Labs: Lab Results 06/02/25 06/02/25 06/02/25 Range/Units 21:47 21:50 21:56 WBC 12.0 H (4.0-11.0) 10^3/uL RBC 5.46 H (4.20-5.40) 10^6/uL Hgb 15.5 (12.0-16.0) g/dL Hct 46.7 (36.0-48.0) % MCV 85.5 (81.0-99.0) fL MCH 28.4 (26.7-34.0) pg MCHC 33.2 (29.9-35.2) g/dL RDW 14.6 (11.0-15.0) % Plt Count 262 (150-450) 10^3/uL MPV 11.7 (9.5-13.5) fL Neut % (Auto) 67.0 (43.0-75.0) % Lymph % (Auto) 24.6 (20.5-60.0) % Gilchrist % (Auto) 6.7 (1.7-12.0) % Eos % (Auto) 1.1 (0.9-7.0) % Baso % (Auto) 0.3 (0.2-2.0) % Neut # (Auto) 8.1 H (1.4-6.5) 10^3/uL Lymph # (Auto) 3.0 (1.2-3.8) 10^3/uL Gilchrist # (Auto) 0.8 (0.3-0.8) 10^3/uL Eos # (Auto) 0.1 (0.0-0.7) 10^3/uL Baso # (Auto) 0.0 (0.0-0.1) 10^3/uL Abs Immat Gran (auto) 0.04 H (0.00-0.03) 10^3/uL Imm/Tot Granulo (auto) 0.3 (0.0-0.5) % Sodium 140 (136-145) mmol/L Potassium 3.8 (3.5-5.1) mmol/L Chloride 105 (98-107) mmol/L Carbon Dioxide 24.4 (21.0-32.0) mmol/L Anion Gap 14.4 BUN 15.0 (7.0-18.0) mg/dL Creatinine 0.61 (0.55-1.02) mg/dL Est GFR ( Amer) >60 (>=60 mL/min/1.73m^2) Est GFR (Non-Af Amer) >60 (>=60 mL/min/1.73m^2) BUN/Creatinine Ratio 24.6 Glucose 103 (74-106) mg/dL Lactate 1.1 (0.4-2.0) mmol/L Calcium 9.2 (8.5-10.1) mg/dL Total Bilirubin 0.2 (0.2-1.0) mg/dL AST 14 L (15-37) U/L ALT 30 (14-59) U/L Alkaline Phosphatase 127 H (46-116) U/L Total Protein 7.6 (6.4-8.2) g/dL Albumin 3.7 (3.4-5.0) g/dL Globulin 3.9 g/dL Albumin/Globulin Ratio 0.9 Urine Color Lt. yellow (YELLOW) Urine Clarity Clear (CLEAR) Urine pH 6.0 (5.0-9.0) Ur Specific Willard 1.015 (1.005-1.025) Urine Protein Negative (NEG/TRACE) mg/dL Urine Glucose (UA) Negative (NEGATIVE) mg/dL Urine Ketones Negative (NEGATIVE) mg/dL Urine Occult Blood Negative (NEGATIVE) Urine Nitrite Negative (NEGATIVE) Urine Bilirubin Negative (NEGATIVE) Urine Urobilinogen 0.2 (0.2-1.0) EU/dL Ur Leukocyte Esterase Negative (NEGATIVE) Urine RBC 0-2 (0-2) #/HPF Urine WBC 0-2 A (NONE SEEN) #/HPF Ur Squamous Epith Cells Many A (NONE/RARE) #/LPF Urine Crystals None seen (None Seen) #/HPF Urine Bacteria Trace A (NONE SEEN) #/HPF Urine Casts None seen (NONE SEEN) #/LPF Urine Mucus None seen (NONE SEEN) Ur Culture Indicated? No SARS-CoV-2 Ag (CV2AG) Negative (NEGATIVE) Discharge Plan Discharge Chief Complaint: Dizziness Clinical Impression: Upper respiratory infection Patient Disposition: Home, Self-Care Prescriptions / Home Meds: No Action methylprednisolone [Medrol (Wolfgang)] 4 mg tablets,dose pack See Rx Instructions .ROUTE .COMPLEX Qty: 21 0RF Rx Instructions: Taper as directed Print Language: Welsh Instructions: Upper Respiratory Infection (ED) Additional Instructions: drink plenty of fluids and follow up with your doctor in the next 1-2 days for recheck Referrals: [facility] [Primary Care Provider] - 1 week Discharge Date/Time: 06/03/25 00:25
[2025-06-02 22:15] LABS: Glucose Urine UA NEGATIVE (NEGATIVE)
[2025-06-02 22:16] LABS: Hematocrit 46.7 % (36.0-48.0); Hemoglobin 15.5 g/dL (12.0-16.0); Immature Granulocytes Abs Auto 0.04 10^3/uL (0.00-0.03); Immature Granulocytes Pct Auto 0.3 % (0.0-0.5); Lymphocytes Absolute Auto 3.0 10^3/uL (1.2-3.8); Mean Corpuscular HGB Conc 33.2 g/dL (29.9-35.2); Mean Corpuscular Hemoglobin 28.4 pg (26.7-34.0); Mean Corpuscular Volume 85.5 fL (81.0-99.0); Platelet Count 262 10^3/uL (150-450); Red Blood Count 5.46 10^6/uL (4.20-5.40); White Blood Count 12.0 10^3/uL (4.0-11.0)
[2025-06-02] MEDS: 0.9 % SODIUM CHLORIDE 1,000 ML 999 ML IV (22:20)
[2025-06-02 22:22] LABS: Cast Seen? NONE SEEN #/LPF (NONE SEEN); Crystals Seen? None Seen #/HPF (None Seen); Urine Culture Indicated NO
[2025-06-02 22:31] LABS: Alanine Aminotransferase 30 U/L (14-59); Albumin Globulin Ratio 0.9; Albumin Level 3.7 g/dL (3.4-5.0); Alkaline Phosphatase 127 U/L (46-116); Anion Gap 14.4; Aspartate Amino Transferase 14 U/L (15-37); Blood Urea Nitrogen 15.0 mg/dL (7.0-18.0); Calcium 9.2 mg/dL (8.5-10.1); Carbon Dioxide 24.4 mmol/L (21.0-32.0); Chloride 105 mmol/L (98-107); Estimated GFR (African America >60 (>=60 mL/min/1.73m^2); Estimated GFR (Non-African Ame >60 (>=60 mL/min/1.73m^2); Globulin 3.9 g/dL; Glucose 103 mg/dL (74-106); Potassium 3.8 mmol/L (3.5-5.1); Sodium 140 mmol/L (136-145); Total Protein 7.6 g/dL (6.4-8.2)
[2025-06-02 22:35] LABS: Lactate/Lactic Acid 1.1 mmol/L (0.4-2.0)
[2025-06-02 22:43] LABS: SARS-CoV-2 Ag NEGATIVE (NEGATIVE)
[2025-06-03] MEDS: ALBUTEROL SULFATE 200 PUFF/6.7 GM INHALER IH (00:23)
== END 2025-06-03 00:25 | disposition home or self-care (01) ==
PROVIDERS: Emergency Provider Internal Medicine
DX: J06.9 Acute upper respiratory infection, unspecified (principal); R42 Dizziness and giddiness; F17.200 Nicotine dependence, unspecified, uncomplicated; R10.84 Generalized abdominal pain; R06.02 Shortness of breath; R05.9 Cough, unspecified
CPT/HCPCS: 36415; 71046; 80053; 81001; 83605; 85025; 87045; 87046; 87338; 87427; 87493; 87811; 96360; 96361; 99284

== ENCOUNTER 2025-07-05 14:08 | Emergency (ER) | payer OTHER, SELFPAY ==
--- OUTSIDE RECORDS SUMMARY | 2013-12-18 10:00 | XMS_ITS | Continuity of Care Document ---
Author Organization [facility] Address [address] [place] [address] Phone Care Team Providers Care Family Partner Name Role Phone Sadiq ELKINS DO, Bar Unavailable Unavailable Procedures Procedure Date OFFICE/OUTPATIENT VISIT, EST OFFICE/OUTPATIENT VISIT, EST URINE TEST TB INTRADERMAL TEST OFFICE/OUTPATIENT VISIT, EST CARE COORDINATION TB INTRADERMAL TEST OFFICE/OUTPATIENT VISIT, [facility] ROUTINE VENIPUNCTURE RISK ASSISSMENT COUNSELING AND EDUCATION [...] Copied on Encounter OFFICE/OUTPAT IENT VISIT, EST [facility], [address] [place] [address], [id number], [place] tel:[phone] [facility] test (chief complaint) examination or test, negative result Sadiq ELKINS Bar. [address] [place], [place], [id number], [place]. tel:[phone] [facility], [address] [place], [place], [id number], [place] tel:[phone] [facility] No Information Cruzrani Martines. [address] [place], [place], [id number], [place]. tel:[phone] OFFICE/OUTPAT IENT VISIT, [facility], [address] [place], [place], [id number], [place] tel:[phone] [facility] No Information Michelle Burton. [address] [place], [place], [id number]. tel:[phone] OFFICE/OUTPAT IENT VISIT, [facility], [address] [place], [place], [id number], [place] tel:[phone] [facility] No Information Sara Kaufman. [address] [place], [place], [id number]. tel:[phone] OFFICE/OUTPAT IENT VISIT, [facility], [address] [place], [place], [id number], [place] tel:[phone] [facility] No Information Sadiq Martines. [address] [place], [place], [id number], [place]. tel:[phone] Family History Family Member Type Diagnosis Age At Onset No Information Payers Payer name Insurance type Covered democrat ID Steph garcia(s) [employer] Medicaid [place] [id number] Social History Type Description Quantity Date Captured [...]
--- OUTSIDE RECORDS SUMMARY | 2025-06-25 07:45 | XMS_ITS ---
Author Organization [facility] Address [address] [place] [address] Care Team Providers Care Global Chief Creative Officer Name Role Phone Yoli Michel Primary Care Provider [phone] Allergies Allergen (clinical drug ingredient) Drug/Non Drug Allergy documented on EMR Reaction Allergy Type Onset Date Status penicillamine penicillAMINE Unknown Drug Allergy Active Latex Exam Gloves RASH Drug Allergy Active REASON FOR VISIT Stomach issues Medications Medication SIG (Take, Route, Frequency, Duration) Notes Start Date End Date Status Albuterol Sulfate HFA 108 (90 Base) MCG/ACT 2 puffs as needed Inhalation every 4 hrs 08/07/2023 Active Amphetamine-Dextroamphetam ine 30 MG Oral; Duration: 30 Days Acti ve FLUoxetine HCl 40 MG 1 capsule Oral Once a day; Duration: 30 days Active ALPRAZolam 1 MG 1 tablet Oral Twice a day as needed; Duration: 30 days PRN Active Social History Tobacco Use: Social History Observation Description Date Details (start date - stop date) Current Smoker NA - NA Sexual Hx: Question Answer Notes Had sex in the last 12 months (vaginal, oral, or anal)? Yes with Men only Have you ever had an STD? No AUDIT-C (Standard) Question Answer Notes Did you have a drink containing alcohol in the p ast year? No Points 0 Interpretation Negative Tobacco Control (Standard) Question Answer Notes Tobacco use: Current smoker How often do you smoke cigarettes? Every day How many cigarettes a day do you smoke? 11-20 Vital Signs Height 63 in 06/25/2025 Weight 286 lbs 06/25/2025 BMI 50.66 kg/m2 06/25/2025 Temperature 98 degrees Fahrenheit 06/25/2025 Blood pressure systolic 136 mm Hg 06/25/20 25 Blood pressure diastolic 70 mm Hg 025 Oximetry 95 % 06/25/2025 Heart Rate 79 /min 06/25/2025 Respiratory Rate 20 /min 06/25/2025 Encounters Encounter Location Date Provider Diagnosis [facility] [address] [place] [address] 06/25/2025 Yoli Michel Acute diarrhea R19.7 Assessments Encounter Date Diagnosis (ICD Code) Assessment Notes Treatment Notes Treatment Clinical Notes Section Notes 06/25/2025 Acute diarrhea (ICD-10 - R19.7) Diarrhea can be caused from several reasons, most often viral in nature; symptoms resolve usually after a few days. Watch for signs and symptoms of dehydration. If no improvement, follow up with office is needed to rule out more complex infections. Patient verbalizes understanding. Plan Of Treatment Treatment Notes Assessment Notes Acute diarrhea Diarrhea can be caus ed from several reasons, most often viral in nature; symptoms resolve usually after a few days. Watch for signs and symptoms of dehydration. If no improvement, follow up with office is needed to rule out more complex infections. Patient verbalizes understanding. Next Appt Details Follow Up: prn, Reason: Progress Notes * NE DURHAM DDOB:[birth year] (40 yo F)Acc No.[id number]:06/25/2025 Progress Notes Patient: NE DOWNEY Provider: Paras Michel :1985 A ge:40 Y S ex:Female Date:06/25/2025 [id number] Subjective: * Chief Complaints: * S tomach issues * HPI: D epression Screening: PHQ-2 (2015 Edition) L ittle interest or pleasure in doing things? N ot at all, F eeling down, depressed, or hopeless? N ot at all, T otal Score 0 . D iarrhea: Pt presents in office with c/o diarrhea that has been present since Saturday. Pt states that she had to call off work on Thursday and today due to having diarrhea. Pt states that her stools are starting to harden up and she is feeling better. Pt denies fevers or urinary issues. P t state she needs a work note. * ROS: G eneral Review of Systems: General D enies fever, chills, weight loss. E yes D enies vision changes, no double vision or blurry vision. . H EENT D enies sore throat, ear pain., Denies fevers , chills, Denies nasal congestion, or pressure, Denies hoarseness, change in voice, difficulty swallowing. C ardiovascular D enies chest pain, palpitations, exertional dyspnea. R espiratory D enies cough, dyspnea, wheezing, sputum production, hemoptysis. G astrointestinal s ee HPI. G enitourinary D enies urgency, frequency, dysuria, hematuria.?Musculoskeletal D enies joint pain, myalgias. D ermatology D enies rashes or lesions. N eurological D enies any lightheadedness, dizziness, headache, new numbness or tingling in hands or feet. . * Medical History: * Surgical History: T ubal ligation 01/26/2010Rods in spine for scoliosis 03/24/1998cone biopsy total abdominal hysterectomy 07/09/2022 * Hospitalization/Major Diagno stic Procedure: E ar infections childhoodsee surgical Pneumonia 05/2025 * Family History: D aughter(s): alive. S on(s): alive. F ather: , heart disease, diagnosed with Heart Disease. M other: alive, seizure disorder. 1 brother(s) . 2 son(s) , 2 daughter(s) - healthy. . Brother at from enlared heart 2 CHILDREN HAVE EPILEPSY FAMILY H/O PATERNAL AND MATERNAL SIDE [facility]BR[place] RMA PT STATES HAS HAD 7 MISCARRIAGES. * Social History: D rug/Alcohol: A WENDIE-C (Standard) D id you have a drink containing alcohol in the past year? N o,?Points 0 , I nterpretation N egative. G eneral: T ransition of Care E R/UC/hospital since last office visit? Y es, report on file,?Specialist seen since last office visit? Y es, report on file. B ehaviors affecting health Poor/Risky Behaviors: D enies-. S ubstance abuse/mental health issues of patient/family P atient - D enies. S ocial/Support Concerns P atient: N o. A bility to understand healthcare/treatment P atient: G ood. C ommunication Barrier L anguage Barrier?: N ot Needed. S exual Hx H ad sex in the last 12 months (vaginal, oral, or anal)??Yes, w ith M en only, H ave you ever had an STD? N o. T obacco Use: T obacco Control (Standard) T obacco use: C urrent smoker, H ow often do you smoke cigarettes? E very day, H ow many cigarettes a day do you smoke? 1 -20. * Medications: T akingALPRAZolam 1 MG Tablet 1 tablet Oral Twice a day as needed , Notes to Pharmacist: PRNFLUoxetine HCl 40 MG Capsule 1 capsule Oral Once a day Amphetamine-Dextroamphetamine 30 MG Tablet Oral Albuterol Sulfate HFA 108 (90 Base) MCG/ACT Aerosol Solution 2 puffs as needed Inhalation every 4 hrs Medication List reviewed and reconciled with the patientTaking ALPRAZolam 1 MG Tablet 1 tablet Oral Twice a day as needed , Notes to Pharmacist: PRNTaking FLUoxetine HCl 40 MG Capsule 1 capsule Oral Once a day Taking Amphetamine-Dextroamphetamine 30 MG Tablet Oral Taking Albuterol Sulfate HFA 108 (90 Base) MCG/ACT Aerosol Solution 2 puffs as needed Inhalation every 4 hrs Medication List reviewed and reconciled with the patient * Allergies: L atex Exam Gloves: RASH - AllergypenicillAMINEno[Allergies Verified] Objective: * Vitals: H t: 63 in, Wt: 286 lbs, BMI:50.66Index, Temp: 98 F, BP: 136/70 mm Hg, SaO2:95%, HR: 79 /min, RR: 20 /min. * Examination: G eneral Examination: GENERAL APPEARANCE: A lert and oriented, in no acute distress, pleasant. F THUY: s ymmetrical, well appearing. E YES: e xtra ocular muscles intact (EOMI) bilaterally, no discharge, pupils, equal, round, reactive to light and accomodation (PERRLA), sclera clear. C HEST: n ormal shape and expansion. G ASTROINTESTINAL: A bdomen Soft, not tender, positive bowel sounds in all 4 quadrants, no guarding.. N EUROLOGIC EXAM: a ppropriate for age. S KIN: m oist, warm, unremarkable, no rash. P SYCH g ood eye contact, oriented to person, oriented to place, oriented to time, appropriate mood and affect. ? Assessment: * Assessment: 1. A cute diarrhea - R19.7 (Primary) Plan: * Treatment: * Procedure Codes: 3 078F DIAST BP < 80 MM [id number] SYST BP GE 130 - 139MM [id number] RVW MEDS BY RX/DR IN RCRD * Preventive Medicine: COUNSELING: C ommunication to patient: C ounseling for Nutrition Provided Y es, C ounseling for Physical Activity Provided Y es, B UT management provided Y es,?Nutrition/Dietary Counseling provided Y es. P atient Primary Pharmacy Discussion P atient agrees to primary pharmacy being set to ke N o, P atient Declines: Explain Why?Patient refused to explain why. * Follow Up: p rn * Images: * Sign off status: Completed true * Provider: Paras Michel Date: 0 06/25/2025 Generated for Cal castillo/Scott/Royer on: 0 07/05/2025 02:22 PM EDT History and Physical Notes * HPI (History of Present Illness) Category Sub-Category Detail Notes Category Not es Depression Screening PHQ-2 (2015 Edition) Little interest or pleasure in doing things?: Not at all Feeling down, depressed, or hopeless?: N ot at all Total Score: 0 Examination Category Sub-Category Detail Notes Category Not es General Examination GASTROINTESTINAL: Abdomen So ft, not tender, positive bowel sounds in all 4 quadrants, no guarding. GENERAL APPEARANCE: Alert and oriented, in no acute distress, pleasant SKIN: moist, warm, unremar kable, no rash NEUROLOGIC EXAM: appropriate for age CHEST: normal shape and exp ansion PSYCH good eye contact, or iented to person, oriented to place, oriented to time, appropriate mood and affect FACE: symmetrical, well ap pearing EYES: extra ocular muscles intact (EOMI) bilaterally, no discharge, pupils, equal, round, reactive to light and accomodation (PERRLA), sclera clear
--- OUTSIDE RECORDS SUMMARY | 2025-07-05 14:23 | XMS_ITS | Clinical Summary ---
Author Organization [facility] Address [address] [place] [address] Care Team Providers Care Health Safety Specialist Name Role Phone Unallocated, Noms Provider Primary Care Provi abel Allergies Active Allergy Reactions Criticality Noted Date Comments Codeine Rash,Unknown,Other Low 09/07/2020 Itchy skin per patient Latex Rash,Other Low 05/16/2023 Penicillamine 12/21/2024 Other Reaction(s): Unknown Penicillins Rash Low 06/21/2023 Prunus Persica Hives,Rash Low 09/07/2020 Sulfamethoxazole-Trimeth oprim Rash Low 06/21/2023 Medications albuterol (ProAir RespiClick) 90 mcg/act breath-activate d inhaler every 4 (four) hours Active ALPRAZolam (Xanax) 1 MG tablet 3 Active amphetamine-dex troamphetamine (Adderall) 30 MG tablet Take 30 mg by mouth in the morning and 30 mg in the evening. Active ibuprofen 600 MG tablet every 8 (eight) hours Active lidocaine (Lidoderm) 5 % patch apply 1 patch TO THE AFFECTED AREA DAILY. LEAVE ON FOR 12 HOURS AND THEN OFF FOR 12 HOURS. 3 Active ARIPiprazole (Abilify) 5 MG tabletIndicatio ns:Bipolar 1 disorder (HCC) Take 1 tablet (5 mg) by mouth Daily 30 tablet 4 Active FLUoxetine (PROzac) 40 MG capsuleIndicati ons:Bipolar 1 disorder (HCC) Take 1 capsule (40 mg) by mouth Daily 30 capsule 4 Active albuterol HFA 90 mcg/act inhaler inhale 2 puffs by mouth and INTO THE LUNGS if needed every 4 hours 4 Active triamcinolone (Kenalog) 0.1 % ointmentIndicat ions:Vulvar irritation Apply topically 2 (two) times a day 15 g 1 4 Active dicyclomine (Bentyl) 20 MG tablet Take 20 mg by mouth 4 (four) times a day as needed 5 Active ondansetron (Zofran) 4 MG tablet Take by mouth every 8 (eight) hours if needed for nausea or vomiting 5 Active Active Problems No known active problems Encounters Date Type Department Care Team Description 04/24/2025 11:00 AM EDT Office Visit [facility] [address] [place] [address] Yanni Delatorre PA Physical exam, pre-employment (Primary Dx) 04/24/2025 Travel from Last 3 Months Family History Medical History Relation Name Comments Cancer Father's Brother Heart attack Father's Brother Cancer Maternal Grandmother Cancer Mother Heart attack Paternal Grandfather Relation Name Status Comments Father Father's Brother Maternal Grandmother Mother Alive Paternal Grandfather Social History Tobacco Use Types Packs/Day Years Used Date Smoking Tobacco: Every Day Cigarettes Smokeless Tobacco: Never Tobacco Cessation:Ready to Q uit: Not Asked; Counseling Given: Not Answered Alcohol Use Standard Drinks/Week Comments Never 0 (1 standard drink = 0.6 oz pur e alcohol) PHQ-2 Answer Date Recorded Patient Health Questionnaire-2 Score 0 05/07/2024 Comments No Sex and Gender Information Value Date Recorded Sex Assigned at Not on file Legal Sex Female 6:44 PM EDT Gender Identity Not on file Sexual Orientation Not on file Last Filed Vital Signs Vital Sign Reading Time Taken Comments Blood Pressure 130/84 04/24/2025 11:57 AM EDT Pulse 70 04/24/2025 11:57 AM EDT Temperature 35.8 C (96.5 F) 04/24/2025 11:57 AM EDT Respiratory Rate 18 06/21/2023 4:59 PM EDT Oxygen Saturation 97% 04/24/2025 11:57 AM EDT Inhaled Oxygen Concentration - - Weight 134 kg (296 lb) 12/21/2024 12:58 PM EST Height 160 cm (5' 3 ) 03/31/2024 11:36 AM EDT Body Mass Index 52.43 03/31/2024 11:36 AM EDT Plan of Treatment Health Maintenance Due Date Last Done Comments Mammogram 2024 Influenza Vaccine (#1) 2025 HPV/Cotest Discontinued 09/07/2020 Cervical Cancer Screening Discontinued Pap Smear Discontinued 08/17/2021 Procedures Procedure Name Priority Date/Time Associated Diagnosis Comments THINPREP TIS PAP AND HPV MRNA E6/E7 REFLEX HPV 16,18/45 (15122) Routine 08/17/2021 from Last 3 Months or Most Recently Relevant to Health Maintenance Results * THINPREP TIS PAP AND HPV MRNA E6/E7 REFLEX HPV 16,18/45 (82300) (08/17/2021) CLINICAL INFORMATION: Hx of LSIL or higher Pap/Bx 11/18/17,HPV+ [facility] LMP: None given [facility] PREV. PAP: 12/10/17- COLPO LUCAS III AND CIS [facility]. BX: None given [facility] SOURCE: Cervix [facility] STATEMENT OF ADEQUACY: SEE COMMENT [facility] Comment: Satisfactory for evaluation. Endocervical/transformation zone component absent. INTERPRETATION/RE SULT: Negative for intraepithelial lesion or malignancy. [facility] COMMENT: SEE COMMENT [facility] Comment: This case could not be evaluated with computer assisted technology. The slide was manually screened according to routine procedures. ESCROW CLOSER: SEE COMMENT [facility] Comment: BH, CT(ASCP) CT screening location: [place] [address]. REVIEW ESCROW CLOSER: SEE COMMENT [facility] Comment: NNO, CT(ASCP) CT screening location: [place] [address]. COMMENT SEE COMMENT [facility] Comment: EXPLANATORY NOTE: The Pap is a screening test for cervical cancer. It is not a diagnostic test and is subject to false negative and false positive results. It is most reliable when a satisfactory sample, regularly obtained, is submitted with relevant clinical findings and history, and when the Pap result is evaluated along with historic and current clinical information. HPV MRNA E6/E7 Not Detected Not Detected [facility] Comment: Methodology: Fish Machine Feeder-Mediated Amplification This assay detects E6/E7 viral messenger RNA (mRNA) from 14 high-risk HPV types (16,18,31,33,35,39,45,51,52,56,58,59,66,68). The analytical performance characteristics of this assay have been determined by [employer]. The modifications have not been cleared or approved by the FDA. This assay has been validated pursuant to the CLIA regulations and is used for clinical purposes. For additional information, please refer to http://education.Purkinje/faq/CSZ837q6 (This link if provided for information/ educational purposes only.) NO COLLECTION DATE RECEIVED. WE HAVE USED THE DATE THE SPECIMEN WAS RECEIVED BY THIS LABORATORY THE COLLECTION DATE. IF THIS IS INCORRECT, PLEASE CONTACT CLIENT SERVICES. PHONE NUMBER: [phone] 08/17/2021 Bar Babcock DO [facility] Final Result [facility] from Last 3 Months or Most Recently Relevant to Health Maintenance Insurance [employer] Care Teams Health Safety Specialist Relationship Specialty Start Date End Date Unallocated, Noms Howard, [address] [place] [address] PCP - General Family Medicine 01/24/24
--- OUTSIDE RECORDS SUMMARY | 2025-07-05 14:23 | XMS_ITS | Clinical Summary ---
Author Organization [facility] Address [id number] [address] [place] [address] Care Team Providers Care Teacher Music Name Role Phone No Pcp, No Pcp Primary Care Provider Unavailabl e Allergies No known active allergies Medications No known medications Social History Tobacco Use Types Packs/Day Years Used Date Smoking Tobacco: Never Assessed Childcare Answer Date Recorded Childcare Unknown 04/08/2019 Employment Answer Date Recorded Employment Unknown 04/08/2019 Hunger Screening Answer Date Recorded Within the past 12 months we worried whether our food would run out before we got money to buy more. Never True 03/06/2025 Within the past 12 months th e food we bought just didn't last and we didn't have money to get more. Never True 03/06/2025 Purpose - Life Answer Date Recorded Purpose and direction in life Unknown Comments No Sex and Gender Information Value Date Recorded Sex Assigned at Not on file Legal Sex Female 11:24 PM EDT Gender Identity Not on file Sexual Orientation Not on file Last Filed Vital Signs Vital Sign Reading Time Taken Comments Blood Pressure 150/92 03/06/2025 6:09 PM EDT Pulse 75 03/06/2025 6:09 PM EDT Temperature 36.7 C (98 F) 03/06/2025 6:09 PM EDT Respiratory Rate 17 03/06/2025 6:09 PM EDT Oxygen Saturation 96% 03/06/2025 6:09 PM EDT Inhaled Oxygen Concentration - - Weight 132.9 kg (293 lb) 03/06/2025 6:09 PM EDT Height 160 cm (5' 3 ) 03/06/2025 6:09 PM EDT Body Mass Index 51.9 03/06/2025 6:09 PM EDT Plan of Treatment Not on file Medical Devices Not on file Insurance [employer] Care Teams Teacher Music Relationship Specialty Start Date End Date No Pcp, [place] [address] PCP - General Family Medicine 07/11/18
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
--- OUTSIDE RECORDS SUMMARY | 2025-07-05 14:23 | XMS_ITS | Clinical Summary ---
Author Organization [facility] Address [address] [place] [id number] Care Team Providers Care Carpenter'S Assistant Name Role Phone Jacquelyn RUBIN DO, Robert James Primary Care Provid er Latonya Perkins DO Unavailable Allergies Active Allergy Reactions Criticality Noted Date Comments Codeine Other: See Comments 09/07/2020 Itchy skin per patient Harney Rash,Hives 09/07/2020 Medications ARIPiprazole (ABILIFY) 10 mg tablet Take 10 mg by mouth once daily. Active ALPRAZolam (XANAX) 1 mg tablet Take 1 mg by mouth as needed. 2 8 Active FLUoxetine HCl (PROZAC) 40 mg capsule Take 40 mg by mouth once daily. 8 Active meloxicam (MOBIC) 7.5 mg tablet Take 7.5 mg by mouth once daily. 8 Active MULTIVIT-MINERALS/F ERROUS FUM (MULTI VITAMIN ORAL) Take by mouth once daily. Active Amphetamine-Dextroa mphetamine (ADDERALL) 30 mg tablet Take 30 mg by mouth twice daily. Active gabapentin (NEURONTIN) 300 mg capsule Take 600 mg by mouth once daily. Active ibuprofen (MOTRIN) 600 mg tabletIndications:C IN III (cervical intraepithelial neoplasia grade III) with severe dysplasia Take 1 tablet by mouth every 6 hours as needed for Pain. 30 tablet 8 Active HYDROcodone-acetami nophen (NORCO) 5-325 mg per tablet 08/10/20 1 8 Active gabapentin (NEURONTIN) 600 mg tablet 8 Active diclofenac (FLECTOR) 1.3 % topical patch Apply 1 Patch as directed twice daily. As directed for low back pain 30 Patch 1 8 Active Active Problems Problem Noted Date Diagnosed Date Bilateral sacroiliitis 08/20/2018 Status post thoracic spinal fusion 08/20/2018 Obesity without serious comorbidity 01/02/2018 Tobacco abuse 01/02/2018 LUCAS III (cervical intraepith elial neoplasia grade III) with severe dysplasia 12/30/2017 Overview (12/30/2017): Added automatically from request for surgery [id number] Chronic pain syndrome 04/12/2014 History of scoliosis 04/12/2014 Musculoskeletal back pain 04/12/2014 History of noncompliance with medical treatment 04/12/2014 Myalgia and myositis, unspecified 04/12/2014 Scoliosis (and kyphoscoliosis), idiopathic 02/24 Lumbago 02/24/2009 Family History Medical History Relation Comments Breast Cancer Maternal Aunt Many cousins als o had breast cancer Breast Cancer Maternal Grandmother at age 39 Cancer Mother Ovarian cancer ; living and well Relation Status Comments Maternal Aunt Maternal Grandmother Mother Social History Tobacco Use Types Packs/Day Years Used Date Smoking Tobacco: Every Day Cigarettes 0.8 20 Smokeless Tobacco: Never Tobacco Cessation:Ready to Q uit: Yes; Counseling Given: Yes Alcohol Use Standard Drinks/Week Comments No 0 (1 standard drink = 0.6 oz pur e alcohol) Area Deprivation Index Answer Date Deng rded National Score (1-100), lower number is lower ri sk Not on file 10/02/2020 State Score (1-10), lower number is lower risk N ot on file 10/02/2020 Data from: https://www.neighborhoodatlas.medicine.[facility].edu/. Last address used for calculation Not on file 10/02/2020 Comments No Sex and Gender Information Value Date Recorded Sex Assigned at Not on file Legal Sex Female 7:33 AM EST Gender Identity Not on file Sexual Orientation Not on file Last Filed Vital Signs Vital Sign Reading Time Taken Comments Blood Pressure 131/69 09/07/2020 10:48 AM EST Pulse 78 09/07/2020 10:48 AM EST Temperature 36.4 C (97.5 F) 09/07/2020 10:48 AM EST Respiratory Rate 20 09/07/2020 10:48 AM EST Oxygen Saturation 98% 09/07/2020 10:48 AM EST Inhaled Oxygen Concentration - - Weight 113.9 kg (251 lb) 09/07/2020 10:48 AM EST Height 160 cm (5' 3 ) 08/19/2018 12:17 PM EDT Body Mass Index 44.46 08/19/2018 12:17 PM EDT Plan of Treatment Health Maintenance Due Date Last Done Comments Anxiety Screening 2002 Depression Screening 2002 HIV Screening 2002 Hepatitis C Screening 2002 DTaP,Tdap,Td Vaccine (1 - Tdap) 2003 Hepatitis B Vaccine (1 of 3 - 19+ 3-dose series) 2003 HPV Vaccine (1 - 3-dose SCDM series) 2011 Mammogram Screening 2024 Influenza Vaccine (#1) 2025 Cervical Cancer Screening 09/07/2025 09/07/2020, 08/2020 Procedures Procedure Name Priority Date/Time Associated Diagnosis Comments PAP FLUID CERVICAL SCREENING Routine 09/07/2020 11:50 AM EST Encounter for gynecological examination without abnormal finding from Last 3 Months or Most Recently Relevant to Health Maintenance Results * PAP FLUID CERVICAL SCREENING (09/07/2020 11:50 AM EST) Director Banking ADDITIONAL PROCEDURES PRESENT Specimen originated from [facility] Specimen #: [id number] Submitting Physician: RED MADISON MD SPECIMEN SUBMITTED A: CERVICAL, SCREENING, FLUID FINAL DIAGNOSIS A. CERVICAL, SCREENING, FLUID Satisfactory for interpretation. No endocervical component. Negative for intraepithelial lesion or malignancy. Predominance of coccobacilli consistent with shift in vaginal kanwal. Victorina Bruening, CT(ASCP) (Electronic Signature) ADDITIONAL PROCEDURE(S) HUMAN PAPILLOMA VIRUS Date Ordered: 09/08/2020 Date Reported: 09/09/2020 Procedure Results and Interpretation Negative for HPV DNA high risk type 16 by PCR. Negative for HPV DNA high risk type 18 by PCR. Negative for HPV DNA high risk types: 31,33,35,39,45,51, 52,56,58,59,66,68 by PCR. This test was developed and its performance characteristics determined by [facility]'s [facility] [place] ([facility]). It has not been cleared or approved by the FDA. [facility] is regulated under CLIA as qualified to perform high-complexity testing. This test is used for clinical purposes. It should not be regarded as investigational or for research. CLINICAL DATA DYSPLASIA, HPV Testing: Yes, automatic HPV patients over 30 Date of Last Menstrual Period: 08/28/2020 STAINS A: CERVICAL, SCREENING, FLUID THIN PREP REFERENCE SERVICES HEAD Pedro Pablo Rogers M.D., Inoculator Date of Report: 09/12/2020 Date of Procedure: 09/07/2020 Date of Receipt: 09/08/2020 Submitted by: RED MADISON MD Location: [facility] Diagnostic interpretation performed at [facility], [address] [place] [address]. CLIA Number: [id number] The Pap Smear is a screening test for cervical cancer. False negative results occur with all screening tests, emphasizing the need for rescreening at recommended intervals, and clinical correlation. [facility] Cervix SPECIMEN FROM CERVIX OR VAGINA / Unknown 09/07/2020 11:50 AM EST 09/08/2020 11:37 AM EST [place] CYTOLOGY Edited Result - Final Performing Organization Address City/State/[facility] Co de Phone Number [facility] [address] [place] [address] from Last 3 Months or Most Recently Relevant to Health Maintenance Insurance [employer] Care Teams Carpenter'S Assistant Relationship Specialty Start Date End Date Luis Valladares II, DO PCP - General Family Medicine 04/05/17 Latonya Perkins DO Referring Air Conditioning Equipment Mechanic 04/05/17
--- OUTSIDE RECORDS SUMMARY | 2025-07-05 14:23 | XMS_ITS | Patient Health Record ---
Author Organization [facility] Address [address] [place] [address] Care Team Providers Care Sleever Name Role Phone Yoli Michel Primary Care Provider [phone] Omid Harper Unavailable [phone] La Truong Unavailable [phone] Subha Isaac Unavailable [phone] Allergies Allergen (clinical drug ingredient) Drug/Non Drug Allergy documented on EMR Reaction Allergy Type Onset Date Status penicillamine penicillAMINE Unknown Drug Allergy Active Latex Exam Gloves RASH Drug Allergy Active Reason For Referral Reason 02/11 *3rd attempt 02/02 *2nd attempt 01/22 attempt, mailbox full wants to restart meds Diagnosis 1 Episodic mood disord er (F39) Diagnosis 2 Inattention (R41.840 ) Diagnosis 3 Depression with anxi ety (F41.8) Referral Organization [facility] Referring Provider First Name Omid Referring Provider Last Name Leroy Referring Provider Speciality [facility] ctice Referred Organization [facility] Referred Address [address] [place], [place],[address], Referred Provider Specialty Medicatio ns Referral Priority Routine Medications Medication SIG (Take, Route, Frequency, Duration) [...] cigarettes a day do you smoke? 11-20 Problems Problem Type SNOMED Code ICD Code Onset Dates Problem Status W/U Status Risk Notes Problem Tobacco user (188421895) Nicotine dependence, unspecified, uncomplicated (F17.200) Active confirmed Problem Low back pain (575196270) Low back pain (M54.5) Active confirmed Problem Shortness of breath (995545798) Shortness of breath (R06.02) Active confirmed Problem Mixed anxiety and depressive disorder (252751871) Depression with anxiety (F41.8) Active confirmed Problem Body mass index 40+ - severely obese (936390455) BMI 45.0-49.9, adult (Z68.42) Active confirmed Problem Episodic mood disorder (84962377623224) Episodic mood disorder (F39) Active confirmed Problem SI - Stress incontinence (82551875) Stress incontinence (N39.3) Active confirmed Problem Inattention (88127543) Inattention (R41.840) Active confirmed Vital Signs Heart Rate 79 /min 06/25/2025 Temperature 98 degrees Fahrenheit 06/25/2025 Respiratory Rate 20 /min 06/25/2025 Oximetry 95 % 06/25/2025 Blood pressure diastolic 70 mm Hg 06/25/2025 Height 63 in 06/25/2025 Blood pressure systolic 136 mm Hg 06/25/2025 Weight 286 lbs 06/25/2025 BMI 50.66 kg/m2 06/25/2025 Encounters Encounter Location Date Provider Diagnosis [facility] [address] [place] [address] 07/16/2024 La Truong [facility] [address] [place] [address] 08/19/2024 La Truong Acute cough R05.1 ; Acute vaginitis N76.0 ; Shortness of breath R06.02 ; Elevated blood pressure reading R03.0 and Nicotine dependence, unspecified, uncomplicated F17.[address] [place] [address] 06/25/2025 Yoli Michel Acute diarrhea R19.7 [facility] [address] [place] [address] 01/20/2025 Omid Harper Acute pneumonia J18. 9 ; Episodic mood disorder F39 ; Inattention R41.840 and Depression with anxiety F41.8 [facility] [address] [place] [address] 06/07/2025 Yoli Michel Acute upper respiratory infection, unspecified J06.9 Assessments Encounter Date Diagnosis (ICD Code) Assessment Notes Treatment Notes Treatment Clinical Notes Section Notes 06/07/2025 Acute upper respiratory infection, unspecified (ICD-10 - J06.9) Due to the length and severity of symptoms, the patient appears to have a bacterial upper respiratory infection. Patient will be started on an antibiotic and steroid. Patient is instructed to take as directed. Patient is encouraged to increase fluids and get plenty of rest. patient is instructed to finish the entire course of the antibiotics despite symptom improvement. Patient instructed to follow up if symptoms have not resolved after completing the antibiotic. Patient may continue to use OTC medications for symptom control. Patient verbalizes understanding. 06/25/2025 Acute diarrhea (ICD-10 - R19.7) Diarrhea can be caused from several reasons, most often viral in nature; symptoms resolve usually after a few days. Watch for signs and symptoms of dehydration. If no improvement, follow up with office is needed to rule out more complex infections. Patient verbalizes understanding. 01/20/2025 Episodic mood disorder (ICD-10 - F39) 01/20/2025 Acute pneumonia (ICD-10 - J18.9) Patient presenting for urgent care follow-up for what she describes as being diagnosed with pneumonia. Urgent care report is unavailable at time of visit. Will switch antibiotic to Robaxin to cover for acute pneumonia as well as give inhaler. Referral generated for mental health as below. No current threat to self or others. We did discuss setting up a visit to discuss weight management as she also wants to discuss this. Signs and symptoms that warrant return to clinic were discussed. Signs and symptoms that would warrant going to the nearest ER or calling 911 were also discussed. 08/19/2024 Acute vaginitis (ICD-10 - N76.0) Pt has history of BV, refuses exam and reports fishy odor and whitish thin discharge. Pt would like to initiate treatment, Pt will be started on Flagyl. Did discuss causes and can try probiotic to help with vaginal kanwal as BV is a imbalance in the vaginal kanwal, no douching recommended. Pt denies this. Pt educated on use of Flagyl, take as directed, do not use alcohol before during or after for at least 72 hours it can make you very ill. Pt VU. 08/19/2024 Acute cough (ICD-10 - R05.1) Due to the length of symptoms, the patient appears to have a bacterial upper respiratory infection. Patient will be started on an antibiotic. Patient is instructed to take as directed. Patient is encouraged to increase fluids and get plenty of rest. patient is instructed to finish the entire course of the antibiotics despite symptom improvement. Patient instructed to follow up if symptoms have not resolved after completing the antibiotic. Patient may continue to use OTC medications for symptom control. 08/19/2024 Shortness of breath (ICD-10 - R06.02) Will send prednisone burst to pharmacy. Discussed risks and side effects of medication. Avoid NSAIDs like ibuprofen and naproxen while taking. Prednisone can increase blood glucose, diabetics will be advised to monitor closely. Also instructed to use Albuterol every 4 hours as needed while sick. Patient is instructed to report to the ER if noticing difficulty breathing that is not relieved by albuterol within 30 minutes. 01/20/2025 Inattention (ICD-10 - R41.840) 08/19/2024 Elevated blood pressure reading (ICD-10 - R03.0) BP is above goal of >140/90. Encouraged to monitor BP at home, keep a log, if >180/90 RTO, if >200/100 with SARGENT, visual changes, NV, chest pain or pressure go to the ER. Encouraged moderate exercise and a low salt diet. Discussed if BP continued to be elevated we will consider medication management. Patient verbalized understanding. 01/20/2025 Depression with anxiety (ICD-10 - F41.8) 08/19/2024 Nicotine dependence, unspecified, uncomplicated (ICD-10 - F17.200) Quitting Tobacco: Care Instructions material was printed 01/20/2025 Other Body Mass Index : Care Instructions material was published 08/19/2024 Other Body Mass Index : Care Instructions material was published, Body Mass Index: Care Instructions material was published Plan Of Treatment No Information Insurance Providers Payer Name Payer Address Payer Phone Subscriber Number Group Number Insured Name Patient Relationship to Insured Coverage Start Date Coverage End Date [employer] [place] [address] [place] [address] [id number] [place] Self - patient is the insured 2 [employer] [address] [place] [address] [phone] [id number] [place] DUR[place]AM Self - patient is the insured 1 [employer] [address] [place] [address] [id number] [id number] BUSH Self - patient is the insured 8 3 zMEDICAID C[employer] after [employer] [address] [place] [address] [id number] [place] DURHAM Self - patient is the insured 1 3 Medical (General) History Medical History History ICD Code LEVEL 3 Borderline BiPolar Depression Chornic back pain Anxiety Panic disorder post-traumatic stress disorder attention deficit disorder pneumonia Surgical History Surgery Date(Month/Year) Tubal ligation 01/26/2010 Rods in spine for scoliosis 03/24/1998 cone biopsy total abdominal hysterectomy 07/09/2022 Hospitalization History Reason Date(Month/Year) Pneumonia 05/2025 Ear infections childhood see surgical
[2025-07-05 14:32] VITALS: BP 154/91; PULSE 68; TEMP 36.9; O2SAT 99; BMI 50.3
--- NOTE | 2025-07-05 14:49 | ED_ITS ---
HPI HPI - General Adult General Chief complaint: Upper Respiratory Infection Stated complaint: CONJESTION WEAKNESS CHILLS EXPOSURE TO COVID Time Seen by Provider: 07/05/25 14:37 Source: patient Mode of arrival: walk-in Limitations: no limitations History of Present Illness HPI narrative: 40-year-old female presents for nasal congestion and some bodyaches. She was exposed to somebody who has COVID. She developed the symptoms about 3 days ago and her doctor is being seen with similar symptoms. Related Data Home Medications ?Medication ?Instructions ?Recorded ?Confirmed No Known Home Medications 07/05/25 09/06/21 Allergies Allergy/AdvReac Type Severity Reaction Status Date / Time codeine Allergy Mild Rash Verified 07/05/25 14:31 Penicillins Allergy Unknown Rash Verified 07/05/25 14:31 sulfamethoxazole (From AdvReac Mild itchy Verified 07/05/25 14:31 Bactrim) trimethoprim (From Bactrim) AdvReac Mild itchy Verified 07/05/25 14:31 Opioid HPI Opioid Management Most Recent Opioid Data: Last Pain Scale 3 Today, 14:32 Review of Systems ROS Narrative A ten point review of systems is negative except as noted above. PFSH PFS Social History Smoking status: Current every day smoker Little interest or pleasure in doing things: not at all Feeling down, depressed, or hopeless: not at all Exam Narrative Exam Narrative: Nurses note and vital signs reviewed and patient is not hypoxic. General: The patient appears well and in no apparent distress. Patient is resting comfortably on cart. Skin: Warm, dry, no pallor noted. There is no rash noted. Head: Normocephalic, atraumatic Eye: Normal conjunctiva, no drainage Ears, Nose, Mouth, and Throat: oral mucosa is moist. Nasal congestion is Cardiovascular: Regular Rate and Rhythm Respiratory: Patient is in no distress, no accessory muscle use, lungs are clear to auscultation, no wheezing, rales or rhonchi Back: non-tender GI: Soft and nontender Musculoskeletal: No joint swelling Neurological: A&O normal speech Psychiatric: Cooperative Constitutional Vital Signs, click to edit/add: Last Vital Signs Temp 98.4 F 07/05/25 14:32 Pulse 68 07/05/25 14:32 Resp 16 07/05/25 14:32 BP 154/91 H 07/05/25 14:32 Pulse Ox 99 07/05/25 14:32 O2 Del Method Room Air 07/05/25 14:32 Course Vital Signs Vital signs: Vital Signs Temperature 98.4 F 07/05/25 14:32 Pulse Rate 68 07/05/25 14:32 Respiratory Rate 16 07/05/25 14:32 Blood Pressure 154/91 H 07/05/25 14:32 Pulse Oximetry 99 07/05/25 14:32 Oxygen Delivery Method Room Air 07/05/25 14:32 Temperature 98.4 F 07/05/25 14:32 Pulse Rate 68 07/05/25 14:32 Respiratory Rate 16 07/05/25 14:32 Blood Pressure 154/91 H 07/05/25 14:32 Pulse Oximetry 99 07/05/25 14:32 Oxygen Delivery Method Room Air 07/05/25 14:32 Medical Decision Making MDM Narrative Medical decision making narrative: COVID test is negative. My clinical impression is she has a viral URI. Antibiotic not indicated. Treatment diagnosis and follow-up were discussed with the patient. Differential Diagnosis Differential Diagnosis: Viral URI, COVID Lab Data Lab results reviewed: Yes I reviewed the patient's lab results Labs: Lab Results 07/05/25 Range/Units 14:35 SARS-CoV-2 Ag (CV2AG) Negative (NEGATIVE) Discharge Plan Discharge Chief Complaint: Upper Respiratory Infection Clinical Impression: Viral URI Patient Disposition: Home, Self-Care Time of Disposition Decision: 15:11 Condition: Good Mode of Transportation: Private Vehicle Prescriptions / Home Meds: No Action No Known Home Medications Print Language: Slovenian Instructions: Upper Respiratory Infection (ED) Referrals: [facility] [Primary Care Provider] - 1 week
[2025-07-05 15:03] LABS: SARS-CoV-2 Ag NEGATIVE (NEGATIVE)
--- OUTSIDE RECORDS SUMMARY | 2025-07-05 16:50 | XMS_ITS | CCD ---
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 [facility] Monocyte distribution width [Entitic volume] in Blood by AutomatedOrdered By: Keith Lugo on 03-31-2024 Monocyte distribution width Auto (Bld) [Entitic vol] 17.93 % 0.00-20.00 [facility] Monocytes Auto (Bld) [#/Vol] Ordered By: Keith Lugo on 03-31-2024 Monocytes (Bld) [#/Vol] 0.7 10*3/uL 0.0-0.8 [facility] Monocytes/100 WBC Auto (Bld) Ordered By: Keith Lugo on 03-31-2024 Monocytes/100 WBC (Bld) 7.0 % . [facility] Natriuretic peptide B [Mass/ Vol]Ordered By: Keith Lugo on 03-31-2024 Natriuretic peptide B (Bld) [Mass/Vol] 10.0 pg/mL 5-100 [facility] Neutrophils Auto (Bld) [#/Vo l]Ordered By: Keith Lugo on 03-31-2024 Neutrophils (Bld) [#/Vol] 6.1 10*3/uL 1.8-7.7 [facility] Neutrophils/100 WBC Auto (Bl d)Ordered By: Keith Lugo on 03-31-2024 Neutrophils/100 WBC (Bld) 61.4 % . [facility] Nitrite Test strip Ql (U)Ord ered By: Keith Lugo on 03-31-2024 Nitrite Ql (U) Negative Negative [facility] No Panel InformationOrdered By: Keith Lugo on 03-31-2024 Estimated GFR (CKD-EPI) > 60.0 mL/Min [facility] Creatinine Clearance (Chem 171.54 [facility] Nucleated erythrocytes [Pres ence] in Blood by Automated countOrdered By: Keith Lugo on 03-31-2024 Nucleated RBC Auto Ql (Bld) 0.1 /100{WBC} 0-0.5 [facility] Platelet mean volume Auto (B ld) [Entitic vol]Ordered By: Keith Lugo on 03-31-2024 Platelet mean volume (Bld) [Entitic vol] 9.4 fL 6.3-10.7 [facility] Platelets Auto (Bld) [#/Vol] Ordered By: Keith Lugo on 03-31-2024 Platelets (Bld) [#/Vol] 277 10*3/uL 150-450 [facility] Potassium [Moles/volume] in Serum or PlasmaOrdered By: Keith Lugo on 03-31-2024 Potassium [Moles/Vol] 3.7 mmol/L 3.5-5.1 [facility] Protein Test strip (U) [Mass /Vol]Ordered By: Keith Lugo on 03-31-2024 Protein (U) [Mass/Vol] Negative Negative [facility] Prothrombin time (PT)Ordered By: Keith Lugo on 03-31-2024 PT Coag (PPP) [Time] 11.1 s 9.0-12.9 [facility] Comment on above: A hematocrit value g reater than 55% may lead to inaccurate results in coagulation testing. Patients having hematocrit values >55% require a special collection tube for coagulation studies. Please contact the laboratory at [phone] for redraw instructions. RBC Auto (Bld) [#/Vol]Ordere d By: Keith Lugo on 03-31-2024 RBC (Bld) [#/Vol] 5.36 10*6/uL 3.60-5.00 [facility] Serum or plasma anion gap de terminationOrdered By: Keith Lugo on 03-31-2024 Anion gap [Moles/Vol] 9.9 mmol/L 6.0-15.0 [facility] Sodium [Moles/volume] in Ser um or PlasmaOrdered By: Keith Lugo on 03-31-2024 Sodium [Moles/Vol] 136 mmol/L 136-145 [facility] Specific gravity Test strip (U) [Rel density]Ordered By: Keith Lugo on 03-31-2024 Specific gravity (U) [Rel density] 1.024 1.001-1.03 0 [facility] Troponin I.cardiac [Mass/vol ume] in Serum or Plasma by Detection limit <= 0.01 ng/Ordered By: Keith Lugo on 03-31-2024 Troponin I.cardiac DL <= 0.01 ng/mL [Mass/Vol] 4.1 pg/mL 0.0-15.0 [facility] Urea nitrogen [Mass/volume] in Serum or PlasmaOrdered By: Keith Lugo on 03-31-2024 Urea nitrogen [Mass/Vol] 18 mg/dL 7-25 [facility] Urine appearanceOrdered By: Keith Lugo on 03-31-2024 Appearance (U) Clear Clear [facility] Urobilinogen Test strip (U) [Mass/Vol]Ordered By: Keith Lugo on 03-31-2024 Urobilinogen (U) [Mass/Vol] Normal mg/dL Normal [facility] WBC Auto (Bld) [#/Vol]Ordere d By: Keith Lugo on 03-31-2024 WBC (Bld) [#/Vol] 10.0 10*3/uL 3.8-11.6 [facility] pH Test strip (U)Ordered By: Keith Lugo on 03-31-2024 pH (U) 5.5 [pH] 5.0-9.0 [facility] Hepatitis B virus surface Ag [Presence] in Serum or Plasma by ImmunoassayOrdered By: Larissa Resendiz on 02-19-2024 HBV surface Ag IA Ql Negative Negative [facility] Hepatitis C virus IgG Ab [Pr esence] in Serum or Plasma by ImmunoassayOrdered By: Larissa Resendiz on 02-19-2024 HCV IgG IA Ql Non-Reactive Non Reactive [facility] No Panel InformationOrdered By: Larissa Resendiz on 02-19-2024 Hepatitis A IgM Antibody Negative Negative [facility] Hepatitis B Core IgM Antibody Negative Negative [facility] Hepatitis C Interpretation See comment . [facility] Comment on above: Not infected with HC V unless early or acute infection issuspected (which may be delayed in an immunocompromisedindividual), or other evidence exists to indicate HCVinfection.Performed at: [facility] [place] [id number] Director: Rell Hernandez PhD, Phone: [phone] Alanine aminotransferase [En zymatic activity/volume] in Serum or PlasmaOrdered By: Renato Kumar on 11-15-2023 ALT [Catalytic activity/Vol] 21 U/L 7-52 [facility] Albumin [Mass/volume] in Ser um or Plasma by Bromocresol green (BCG) dye binding methoOrdered By: Renato Kumar on 11-15-2023 Albumin BCG dye [Mass/Vol] 4.0 g/dL 3.5-5.7 [facility] Alkaline phosphatase [Enzyma tic activity/volume] in Serum or PlasmaOrdered By: Renato Kumar on 11-15-2023 ALP [Catalytic activity/Vol] 102 U/L 34-104 [facility] Aspartate aminotransferase [ Enzymatic activity/volume] in Serum or PlasmaOrdered By: Renato Kumar on 11-15-2023 AST [Catalytic activity/Vol] 16 U/L 13-39 [facility] Basophils Auto (Bld) [#/Vol] Ordered By: Renato Kumar on 11-15-2023 Basophils (Bld) [#/Vol] 0.1 10*3/uL 0.0-0.2 [facility] Basophils/100 WBC Auto (Bld) Ordered By: Renato Kumar on 11-15-2023 Basophils/100 WBC (Bld) 0.9 % . [facility] Bilirubin Test strip Ql (U)O rdered By: Renato Kumar on 11-15-2023 Bilirubin Ql (U) Negative Negative [facility] Bilirubin.total [Mass/volume ] in Serum or PlasmaOrdered By: Renato Kumar on 11-15-2023 Bilirubin [Mass/Vol] 0.2 mg/dL 0.3-1.0 [facility] Calcium [Mass/volume] in Ser um or PlasmaOrdered By: Renato Kumar on 11-15-2023 Calcium [Mass/Vol] 8.9 mg/dL 8.6-10.3 [facility] Carbon dioxide, total [Moles /volume] in Serum or PlasmaOrdered By: Renato Kumar on 11-15-2023 CO2 [Moles/Vol] 27.0 mmol/L 21.0-31.0 [facility] Chloride [Moles/volume] in S gale or PlasmaOrdered By: Renato Kumar on 11-15-2023 Chloride [Moles/Vol] 108 mmol/L 98-107 [facility] Color Auto (U)Ordered By: Rachael Kumar on 11-15-2023 Color (U) Yellow Yellow [facility] Creatinine [Mass/volume] in Serum or PlasmaOrdered By: Renato Kumar on 11-15-2023 Creatinine [Mass/Vol] 0.64 mg/dL 0.60-1.20 [facility] Eosinophils Auto (Bld) [#/Vo l]Ordered By: Renato Kumar on 11-15-2023 Eosinophils (Bld) [#/Vol] 0.1 10*3/uL 0.0-0.45 [facility] Eosinophils/100 WBC Auto (Bl d)Ordered By: Renato Kumar on 11-15-2023 Eosinophils/100 WBC (Bld) 0.9 % . [facility] Erythrocyte distribution wid th Auto (RBC) [Ratio]Ordered By: Renato Kumar on 11-15-2023 Erythrocyte distribution width (RBC) [Ratio] 14.9 % 11.9-15.3 [facility] Globulin Calc (S) [Mass/Vol] Ordered By: Renato Kumar on 11-15-2023 Globulin (S) [Mass/Vol] 2.6 g/dL [facility] Glucose [Mass/volume] in Ser um or PlasmaOrdered By: Renato Kumar on 11-15-2023 Glucose [Mass/Vol] 87 mg/dL 70-100 [facility] Comment on above: ADA recommended refe rence rangeRandom Glucose Reference Range is dependent on time and content of last meal. Glucose of more than 200 mg/dL in a nonstressed, ambulatory subject supports the diagnosis of Diabetes Mellitus. HCG ( test) IA.rapi d Ql (U)Ordered By: Renato Kumar on 11-15-2023 HCG ( test) Ql (U) Negative [facility] Hematocrit Auto (Bld) [Volum e fraction]Ordered By: Renato Kumar on 11-15-2023 Hematocrit (Bld) [Volume fraction] 42.2 % 34.0-46.4 [facility] Hemoglobin [Mass/volume] in BloodOrdered By: Renato Kumar on 11-15-2023 Hemoglobin (Bld) [Mass/Vol] 14.0 g/dL 11.8-15.4 [facility] Ketones Auto test strip (U) [Mass/Vol]Ordered By: Renato Kumar on 11-15-2023 Ketones (U) [Mass/Vol] Negative Negative [facility] Leukocytes [#/volume] correc taurus for nucleated erythrocytes in Blood by Automated counOrdered By: Renato Kumar on 11-15-2023 WBC corrected for nucl RBC Auto (Bld) [#/Vol] 12.5 10*3/uL 3.8-11.6 [facility] Lipase [Enzymatic activity/v olume] in Serum or PlasmaOrdered By: Renato Kumar on 11-15-2023 Lipase [Catalytic activity/Vol] 14.0 U/L 11.0-82.0 [facility] Lymphocytes Auto (Bld) [#/Vo l]Ordered By: Renato Kumar on 11-15-2023 Lymphocytes (Bld) [#/Vol] 2.4 10*3/uL 1.00-4.8 [facility] Lymphocytes/100 WBC Auto (Bl d)Ordered By: Renato Kumar on 11-15-2023 Lymphocytes/100 WBC (Bld) 19.5 % . [facility] MCH Auto (RBC) [Entitic mass ]Ordered By: Renato Kumar on 11-15-2023 MCH (RBC) [Entitic mass] 28.1 pg 24.7-34.3 [facility] MCHC Auto (RBC) [Mass/Vol]Or dered By: Renato Kumar on 11-15-2023 MCHC (RBC) [Mass/Vol] 33.2 g/dL 32.0-35.0 [facility] MCV Auto (RBC) [Entitic vol] Ordered By: Renato Kumar on 11-15-2023 MCV (RBC) [Entitic vol] 84.7 fL 80-100 [facility] Monocyte distribution width [Entitic volume] in Blood by AutomatedOrdered By: Renato Kumar on 11-15-2023 Monocyte distribution width Auto (Bld) [Entitic vol] 17.23 % 0.00-20.00 [facility] Monocytes Auto (Bld) [#/Vol] Ordered By: Renato Kumar on 11-15-2023 Monocytes (Bld) [#/Vol] 0.8 10*3/uL 0.0-0.8 [facility] Monocytes/100 WBC Auto (Bld) Ordered By: Renato Kumar on 11-15-2023 Monocytes/100 WBC (Bld) 6.3 % . [facility] Neutrophils Auto (Bld) [#/Vo l]Ordered By: Renato Kumar on 11-15-2023 Neutrophils (Bld) [#/Vol] 9.1 10*3/uL 1.8-7.7 [facility] Neutrophils/100 WBC Auto (Bl d)Ordered By: Renato Kumar on 11-15-2023 Neutrophils/100 WBC (Bld) 72.4 % . [facility] Nitrite Test strip Ql (U)Ord ered By: Renato Kumar on 11-15-2023 Nitrite Ql (U) Negative Negative [facility] No Panel InformationOrdered By: Renato Kumar on 11-15-2023 Estimated GFR (CKD-EPI) > 60.0 mL/Min [facility] Creatinine Clearance (Chem 154.63 [facility] Nucleated erythrocytes [Pres ence] in Blood by Automated countOrdered By: Renato Kumar on 11-15-2023 Nucleated RBC Auto Ql (Bld) 0.1 /100{WBC} 0-0.5 [facility] Platelet mean volume Auto (B ld) [Entitic vol]Ordered By: Renato Kumar on 11-15-2023 Platelet mean volume (Bld) [Entitic vol] 9.6 fL 6.3-10.7 [facility] Platelets Auto (Bld) [#/Vol] Ordered By: Renato Kumar on 11-15-2023 Platelets (Bld) [#/Vol] 287 10*3/uL 150-450 [facility] Potassium [Moles/volume] in Serum or PlasmaOrdered By: Renato Kumar on 11-15-2023 Potassium [Moles/Vol] 4.0 mmol/L 3.5-5.1 [facility] Protein Auto test strip (U) [Mass/Vol]Ordered By: Renato Kumar on 11-15-2023 Protein (U) [Mass/Vol] Negative Negative [facility] Protein [Mass/volume] in Ser um or PlasmaOrdered By: Renato Kumar on 11-15-2023 Protein [Mass/Vol] 6.6 g/dL 6.4-8.9 [facility] RBC Auto (Bld) [#/Vol]Ordere d By: Renato Kumar on 11-15-2023 RBC (Bld) [#/Vol] 4.99 10*6/uL 3.60-5.00 [facility] Serum or plasma albumin/glob ulin mass ratioOrdered By: Renato Kumar on 11-15-2023 Albumin/Globulin [Mass ratio] 1.5 {ratio} [facility] Serum or plasma anion gap de terminationOrdered By: Renato Kumar on 11-15-2023 Anion gap [Moles/Vol] 8.0 mmol/L 6.0-15.0 [facility] Sodium [Moles/volume] in Ser um or PlasmaOrdered By: Renato Kumar on 11-15-2023 Sodium [Moles/Vol] 139 mmol/L 136-145 [facility] Specific gravity Auto test s trip (U) [Rel density]Ordered By: Renato Kumar on 11-15-2023 Specific gravity (U) [Rel density] 1.026 1.001-1.03 0 [facility] Urea nitrogen [Mass/volume] in Serum or PlasmaOrdered By: Renato Kumar on 11-15-2023 Urea nitrogen [Mass/Vol] 17 mg/dL 7-25 [facility] Urine clarity by refractomet ry automatedOrdered By: Renato Kumar on 11-15-2023 Clarity Refractometry automated (U) Clear Clear [facility] Urine glucose measurement by automated test strip (mass/volume)Ordered By: Renato Kumar on 11-15-2023 Glucose Auto test strip (U) [Mass/Vol] Normal mg/dL Normal [facility] Urine hemoglobin detection b y automated test stripOrdered By: Renato Kumar on 11-15-2023 Hemoglobin Auto test strip Ql (U) Negative Negative [facility] Urine leukocyte esterase det ection by automated test stripOrdered By: Renato Kumar on 11-15-2023 Leukocyte esterase Auto test strip Ql (U) Negative Negative [facility] Urobilinogen Auto test strip (U) [Mass/Vol]Ordered By: Renato Kumar on 11-15-2023 Urobilinogen (U) [Mass/Vol] Normal mg/dL Normal [facility] WBC Auto (Bld) [#/Vol]Ordere d By: Renato Kumar on 11-15-2023 WBC (Bld) [#/Vol] 12.5 10*3/uL 3.8-11.6 [facility] pH Auto test strip (U)Ordere d By: Renato Kumar on 11-15-2023 pH (U) 6.5 [pH] 5.0-9.0 [facility] COVID CepheidOrdered By: Mildred Vang on 08-04-2023 SARS-CoV-2 (COVID-19) Ab IA Ql Negative Negative [facility] Comment on above: This is a duplicate [employer] Xpert Xpress CoV-2/Flu/RSV Plus RNA by RT-PCR result to be used for statistical tracking purpose only. SARS-CoV-2 (COVID-19) RNA JUDIT+probe Ql (Unsp spec) [facility] Basophils Auto (Bld) [#/Vol] Ordered By: Mark Bar on 05-12-2023 Basophils (Bld) [#/Vol] 0.1 10*3/uL 0.0-0.2 [facility] Basophils/100 WBC Auto (Bld) Ordered By: Mark Bar on 05-12-2023 Basophils/100 WBC (Bld) 1.3 % . [facility] COVID-19 SOFIAOrdered By: Ismael Bar on 05-12-2023 SARS-CoV+SARS-CoV-2 (COVID-19) Ag IA.rapid Ql (Resp) Negative Negative [facility] Comment on above: This is a duplicate Laura SARS Antigen (JESSICA) result to be used for statistical tracking purpose only. Calcium [Mass/volume] in Ser um or PlasmaOrdered By: Mark Bar on 05-12-2023 Calcium [Mass/Vol] 8.9 mg/dL 8.6-10.3 [facility] Carbon dioxide, total [Moles /volume] in Serum or PlasmaOrdered By: Mark Bar on 05-12-2023 CO2 [Moles/Vol] 24.0 mmol/L 21.0-31.0 [facility] Chloride [Moles/volume] in S gale or PlasmaOrdered By: Mark Bar on 05-12-2023 Chloride [Moles/Vol] 107 mmol/L 98-107 [facility] Creatinine [Mass/volume] in Serum or PlasmaOrdered By: Mark Bar on 05-12-2023 Creatinine [Mass/Vol] 0.55 mg/dL 0.60-1.20 [facility] Eosinophils Auto (Bld) [#/Vo l]Ordered By: Mark Bar on 05-12-2023 Eosinophils (Bld) [#/Vol] 0.1 10*3/uL 0.0-0.45 [facility] Eosinophils/100 WBC Auto (Bl d)Ordered By: Mark Bar on 05-12-2023 Eosinophils/100 WBC (Bld) 1.0 % . [facility] Erythrocyte distribution wid th Auto (RBC) [Ratio]Ordered By: Mark Bar on 05-12-2023 Erythrocyte distribution width (RBC) [Ratio] 15.5 % 11.9-15.3 [facility] Glucose [Mass/volume] in Ser um or PlasmaOrdered By: Mark Bar on 05-12-2023 Glucose [Mass/Vol] 92 mg/dL 70-100 [facility] Comment on above: ADA recommended refe rence rangeRandom Glucose Reference Range is dependent on time and content of last meal. Glucose of more than 200 mg/dL in a nonstressed, ambulatory subject supports the diagnosis of Diabetes Mellitus. Hematocrit Auto (Bld) [Volum e fraction]Ordered By: Mark Bar on 05-12-2023 Hematocrit (Bld) [Volume fraction] 45.7 % 34.0-46.4 [facility] Hemoglobin [Mass/volume] in BloodOrdered By: Mark Bar on 05-12-2023 Hemoglobin (Bld) [Mass/Vol] 15.2 g/dL 11.8-15.4 [facility] Leukocytes [#/volume] correc taurus for nucleated erythrocytes in Blood by Automated counOrdered By: Mark Bar on 05-12-2023 WBC corrected for nucl RBC Auto (Bld) [#/Vol] 9.9 10*3/uL 3.8-11.6 [facility] Lymphocytes Auto (Bld) [#/Vo l]Ordered By: Mark Bar on 05-12-2023 Lymphocytes (Bld) [#/Vol] 2.2 10*3/uL 1.00-4.8 [facility] Lymphocytes/100 WBC Auto (Bl d)Ordered By: Mark Bar on 05-12-2023 Lymphocytes/100 WBC (Bld) 22.4 % . [facility] MCH Auto (RBC) [Entitic mass ]Ordered By: Mark Bar on 05-12-2023 MCH (RBC) [Entitic mass] 27.9 pg 24.7-34.3 [facility] MCHC Auto (RBC) [Mass/Vol]Or dered By: Mark Bar on 05-12-2023 MCHC (RBC) [Mass/Vol] 33.2 g/dL 32.0-35.0 [facility] MCV Auto (RBC) [Entitic vol] Ordered By: Mark Bar on 05-12-2023 MCV (RBC) [Entitic vol] 84.1 fL 80-100 [facility] Monocyte distribution width [Entitic volume] in Blood by AutomatedOrdered By: Mark Bar on 05-12-2023 Monocyte distribution width Auto (Bld) [Entitic vol] 19.20 % 0.00-20.00 [facility] Monocytes Auto (Bld) [#/Vol] Ordered By: Mark Bar on 05-12-2023 Monocytes (Bld) [#/Vol] 0.6 10*3/uL 0.0-0.8 [facility] Monocytes/100 WBC Auto (Bld) Ordered By: Mark Bar on 05-12-2023 Monocytes/100 WBC (Bld) 5.7 % . [facility] Neutrophils Auto (Bld) [#/Vo l]Ordered By: Mark Bar on 05-12-2023 Neutrophils (Bld) [#/Vol] 6.9 10*3/uL 1.8-7.7 [facility] Neutrophils/100 WBC Auto (Bl d)Ordered By: Mark Bar on 05-12-2023 Neutrophils/100 WBC (Bld) 69.6 % . [facility] No Panel InformationOrdered By: Mark Bar on 05-12-2023 Estimated GFR (CKD-EPI) > 60.0 mL/Min [facility] Creatinine Clearance (Chem 177.95 [facility] SARS Antigen (LFIA) [facility] Nucleated erythrocytes [Pres ence] in Blood by Automated countOrdered By: Mark Bar on 05-12-2023 Nucleated RBC Auto Ql (Bld) 0.1 /100{WBC} 0-0.5 [facility] Platelet adequacy [Presence] in Blood by Light microscopyOrdered By: Mark Bar on 05-12-2023 Platelets LM Ql (Bld) Normal Normal [facility] Platelet mean volume Auto (B ld) [Entitic vol]Ordered By: Mark Bar on 05-12-2023 Platelet mean volume (Bld) [Entitic vol] 9.9 fL 6.3-10.7 [facility] Platelet morphology finding [Identifier] in BloodOrdered By: Mark Bar on 05-12-2023 Platelet morphology finding Nom (Bld) N/A [facility] Platelets Auto (Bld) [#/Vol] Ordered By: Mark Bar on 05-12-2023 Platelets (Bld) [#/Vol] 245 10*3/uL 150-450 [facility] [facility] Plate[facility] Large [Presence] i n Blood by Light microscopyOrdered By: Mark Bar on 05-12-2023 Platelets Large LM Ql (Bld) Slight [facility] Potassium [Moles/volume] in Serum or PlasmaOrdered By: Mark Bar on 05-12-2023 Potassium [Moles/Vol] 4.1 mmol/L 3.5-5.1 [facility] RBC Auto (Bld) [#/Vol]Ordere d By: Mark Bar on 05-12-2023 RBC (Bld) [#/Vol] 5.44 10*6/uL 3.60-5.00 [facility] RBC morphologyOrdered By: Ismael Bar on 05-12-2023 RBC morphology finding Nom (Bld) Normal Normal [facility] Serum or plasma anion gap de terminationOrdered By: Mark Bar on 05-12-2023 Anion gap [Moles/Vol] 11.1 mmol/L 6.0-15.0 [facility] Sodium [Moles/volume] in Ser um or PlasmaOrdered By: Mark Bar on 05-12-2023 Sodium [Moles/Vol] 138 mmol/L 136-145 [facility] Troponin I.cardiac [Mass/vol ume] in Serum or Plasma by Detection limit <= 0.01 ng/Ordered By: Mark Bar on 05-12-2023 Troponin I.cardiac DL <= 0.01 ng/mL [Mass/Vol] 2.8 pg/mL 0.0-15.0 [facility] Urea nitrogen [Mass/volume] in Serum or PlasmaOrdered By: Mark Bar on 05-12-2023 Urea nitrogen [Mass/Vol] 14 mg/dL 7-25 [facility] WBC Auto (Bld) [#/Vol]Ordere d By: Mark Bar on 05-12-2023 WBC (Bld) [#/Vol] 9.9 10*3/uL 3.8-11.6 [facility] Alanine aminotransferase [En zymatic activity/volume] in Serum or PlasmaOrdered By: Jah Almonte on 03-05-2023 ALT [Catalytic activity/Vol] 17 U/L 7-52 [facility] Albumin [Mass/volume] in Ser um or Plasma by Bromocresol green (BCG) dye binding methoOrdered By: Jah Almonte on 03-05-2023 Albumin BCG dye [Mass/Vol] 4.2 g/dL 3.5-5.7 [facility] Alkaline phosphatase [Enzyma tic activity/volume] in Serum or PlasmaOrdered By: Jah Almonte on 03-05-2023 ALP [Catalytic activity/Vol] 87 U/L 34-104 [facility] Aspartate aminotransferase [ Enzymatic activity/volume] in Serum or PlasmaOrdered By: Jah Almonte on 03-05-2023 AST [Catalytic activity/Vol] 14 U/L 13-39 [facility] Basophils Auto (Bld) [#/Vol] Ordered By: Jah Almonte on 03-05-2023 Basophils (Bld) [#/Vol] 0.1 10*3/uL 0.0-0.2 [facility] Basophils/100 WBC Auto (Bld) Ordered By: Jah Almonte on 03-05-2023 Basophils/100 WBC (Bld) 0.9 % . [facility] Bilirubin.total [Mass/volume ] in Serum or PlasmaOrdered By: Jah Almonte on 03-05-2023 Bilirubin [Mass/Vol] 0.3 mg/dL 0.3-1.0 [facility] Calcium [Mass/volume] in Ser um or PlasmaOrdered By: Jah Almonte on 03-05-2023 Calcium [Mass/Vol] 8.7 mg/dL 8.6-10.3 [facility] Carbon dioxide, total [Moles /volume] in Serum or PlasmaOrdered By: Jah Almonte on 03-05-2023 CO2 [Moles/Vol] 25.5 mmol/L 21.0-31.0 [facility] Chloride [Moles/volume] in S gale or PlasmaOrdered By: Jah Almonte on 03-05-2023 Chloride [Moles/Vol] 107 mmol/L 98-107 [facility] Creatinine [Mass/volume] in Serum or PlasmaOrdered By: Jah Almonte on 03-05-2023 Creatinine [Mass/Vol] 0.60 mg/dL 0.60-1.20 [facility] Eosinophils Auto (Bld) [#/Vo l]Ordered By: Jah Almonte on 03-05-2023 Eosinophils (Bld) [#/Vol] 0.1 10*3/uL 0.0-0.45 [facility] Eosinophils/100 WBC Auto (Bl d)Ordered By: Jah Almonte on 03-05-2023 Eosinophils/100 WBC (Bld) 0.9 % . [facility] Erythrocyte distribution wid th Auto (RBC) [Ratio]Ordered By: Jah Almonte on 03-05-2023 Erythrocyte distribution width (RBC) [Ratio] 17.6 % 11.9-15.3 [facility] Globulin Calc (S) [Mass/Vol] Ordered By: Jah Almonte on 03-05-2023 Globulin (S) [Mass/Vol] 2.6 g/dL [facility] Glucose [Mass/volume] in Ser um or PlasmaOrdered By: Jah Almonte on 03-05-2023 Glucose [Mass/Vol] 109 mg/dL 70-100 [facility] Comment on above: ADA recommended refe rence rangeRandom Glucose Reference Range is dependent on time and content of last meal. Glucose of more than 200 mg/dL in a nonstressed, ambulatory subject supports the diagnosis of Diabetes Mellitus. Hematocrit Auto (Bld) [Volum e fraction]Ordered By: Jah Almonte on 03-05-2023 Hematocrit (Bld) [Volume fraction] 41.9 % 34.0-46.4 [facility] Hemoglobin [Mass/volume] in BloodOrdered By: Jah Almonte on 03-05-2023 Hemoglobin (Bld) [Mass/Vol] 13.7 g/dL 11.8-15.4 [facility] Leukocytes [#/volume] correc taurus for nucleated erythrocytes in Blood by Automated counOrdered By: Jah Almonte on 03-05-2023 WBC corrected for nucl RBC Auto (Bld) [#/Vol] 13.7 10*3/uL 3.8-11.6 [facility] Lymphocytes Auto (Bld) [#/Vo l]Ordered By: Jah Almonte on 03-05-2023 Lymphocytes (Bld) [#/Vol] 2.6 10*3/uL 1.00-4.8 [facility] Lymphocytes/100 WBC Auto (Bl d)Ordered By: Jah Almonte on 03-05-2023 Lymphocytes/100 WBC (Bld) 18.9 % . [facility] MCH Auto (RBC) [Entitic mass ]Ordered By: Jah Almonte on 03-05-2023 MCH (RBC) [Entitic mass] 26.7 pg 24.7-34.3 [facility] MCHC Auto (RBC) [Mass/Vol]Or dered By: Jah Almonte on 03-05-2023 MCHC (RBC) [Mass/Vol] 32.7 g/dL 32.0-35.0 [facility] MCV Auto (RBC) [Entitic vol] Ordered By: Jah Almonte on 03-05-2023 MCV (RBC) [Entitic vol] 81.6 fL 80-100 [facility] Magnesium [Mass/volume] in S gale or PlasmaOrdered By: Jah Almonte on 03-05-2023 Magnesium [Mass/Vol] 1.9 mg/dL 1.9-2.7 [facility] Monocyte distribution width [Entitic volume] in Blood by AutomatedOrdered By: Jah Almonte on 03-05-2023 Monocyte distribution width Auto (Bld) [Entitic vol] 16.68 % 0.00-20.00 [facility] Monocytes Auto (Bld) [#/Vol] Ordered By: Jah Almonte on 03-05-2023 Monocytes (Bld) [#/Vol] 0.7 10*3/uL 0.0-0.8 [facility] Monocytes/100 WBC Auto (Bld) Ordered By: Jah Almonte on 03-05-2023 Monocytes/100 WBC (Bld) 5.1 % . [facility] Neutrophils Auto (Bld) [#/Vo l]Ordered By: Jah Almonte on 03-05-2023 Neutrophils (Bld) [#/Vol] 10.2 10*3/uL 1.8-7.7 [facility] Neutrophils/100 WBC Auto (Bl d)Ordered By: Jah Almonte on 03-05-2023 Neutrophils/100 WBC (Bld) 74.2 % . [facility] No Panel InformationOrdered By: Jah Almonte on 03-05-2023 Estimated GFR (CKD-EPI) > 60.0 mL/Min [facility] Creatinine Clearance (Chem 162.80 [facility] Nucleated erythrocytes [Pres ence] in Blood by Automated countOrdered By: Jah Almonte on 03-05-2023 Nucleated RBC Auto Ql (Bld) 0.0 /100{WBC} 0-0.5 [facility] Platelet adequacy [Presence] in Blood by Light microscopyOrdered By: Jah Almonte on 03-05-2023 Platelets LM Ql (Bld) Normal Normal [facility] Platelet mean volume Auto (B ld) [Entitic vol]Ordered By: Jah Almonte on 03-05-2023 Platelet mean volume (Bld) [Entitic vol] 9.5 fL 6.3-10.7 [facility] Platelet morphology finding [Identifier] in BloodOrdered By: Jah Almonte on 03-05-2023 Platelet morphology finding Nom (Bld) Normal Normal [facility] Platelets Auto (Bld) [#/Vol] Ordered By: Jah Almonte on 03-05-2023 Platelets (Bld) [#/Vol] 256 10*3/uL 150-450 [facility] Potassium [Moles/volume] in Serum or PlasmaOrdered By: Jah Almonte on 03-05-2023 Potassium [Moles/Vol] 3.4 mmol/L 3.5-5.1 [facility] Protein [Mass/volume] in Ser um or PlasmaOrdered By: Jah Almonte on 03-05-2023 Protein [Mass/Vol] 6.8 g/dL 6.4-8.9 [facility] RBC Auto (Bld) [#/Vol]Ordere d By: Jah Almonte on 03-05-2023 RBC (Bld) [#/Vol] 5.13 10*6/uL 3.60-5.00 [facility] RBC morphologyOrdered By: Cali Almonte on 03-05-2023 RBC morphology finding Nom (Bld) Normal Normal [facility] Serum or plasma albumin/glob ulin mass ratioOrdered By: Jah Almonte on 03-05-2023 Albumin/Globulin [Mass ratio] 1.6 {ratio} [facility] Serum or plasma anion gap de terminationOrdered By: Jah Almonte on 03-05-2023 Anion gap [Moles/Vol] 9.9 mmol/L 6.0-15.0 [facility] Sodium [Moles/volume] in Ser um or PlasmaOrdered By: Jah Almonte on 03-05-2023 Sodium [Moles/Vol] 139 mmol/L 136-145 [facility] Urea nitrogen [Mass/volume] in Serum or PlasmaOrdered By: Jah Almonte on 03-05-2023 Urea nitrogen [Mass/Vol] 15 mg/dL 7-25 [facility] WBC Auto (Bld) [#/Vol]Ordere d By: Jah Almonte on 03-05-2023 WBC (Bld) [#/Vol] 13.7 10*3/uL 3.8-11.6 [facility] Activated partial thrombopla stin time (aPTT) in platelet poor plasma by coagulation aOrdered By: Farhat Castro on 02-05-2023 aPTT Coag (PPP) [Time] 29.9 s 25.1-36.5 [facility] Anisocytosis LM Ql (Bld)Orde red By: Farhat Castro on 02-05-2023 Anisocytosis Ql (Bld) Marked [facility] Basophils Auto (Bld) [#/Vol] Ordered By: Farhat Castro on 02-05-2023 Basophils (Bld) [#/Vol] 0.1 10*3/uL 0.0-0.2 [facility] Basophils/100 WBC Auto (Bld) Ordered By: Farhat Castro on 02-05-2023 Basophils/100 WBC (Bld) 0.9 % . [facility] COVID CepheidOrdered By: Grace Castro on 02-05-2023 SARS-CoV-2 (COVID-19) Ab IA Ql Negative Negative [facility] Comment on above: This is a duplicate Cepheid Xpert Xpress CoV-2/Flu/RSV Plus RNA by RT-PCR result to be used for statistical tracking purpose only. SARS-CoV-2 (COVID-19) RNA JUDIT+probe Ql (Unsp spec) [facility] Calcium [Mass/volume] in Ser um or PlasmaOrdered By: Farhat Castro on 02-05-2023 Calcium [Mass/Vol] 9.2 mg/dL 8.6-10.3 [facility] Carbon dioxide, total [Moles /volume] in Serum or PlasmaOrdered By: Farhat Castro on 02-05-2023 CO2 [Moles/Vol] 23.5 mmol/L 21.0-31.0 [facility] Chloride [Moles/volume] in S gale or PlasmaOrdered By: Farhat Castro on 02-05-2023 Chloride [Moles/Vol] 107 mmol/L 98-107 [facility] Creatine kinase [Enzymatic a ctivity/volume] in Serum or PlasmaOrdered By: Farhat Castro on 02-05-2023 CK [Catalytic activity/Vol] 53 U/L 30-223 [facility] Creatinine [Mass/volume] in Serum or PlasmaOrdered By: Farhat Castro on 02-05-2023 Creatinine [Mass/Vol] 0.55 mg/dL 0.60-1.20 [facility] Eosinophils Auto (Bld) [#/Vo l]Ordered By: Farhat Castro on 02-05-2023 Eosinophils (Bld) [#/Vol] 0.1 10*3/uL 0.0-0.45 [facility] Eosinophils/100 WBC Auto (Bl d)Ordered By: Farhat Castro on 02-05-2023 Eosinophils/100 WBC (Bld) 0.8 % . [facility] Erythrocyte distribution wid th Auto (RBC) [Ratio]Ordered By: Farhat Castro on 02-05-2023 Erythrocyte distribution width (RBC) [Ratio] 18.2 % 11.9-15.3 [facility] Glucose [Mass/volume] in Ser um or PlasmaOrdered By: Farhat Castro on 02-05-2023 Glucose [Mass/Vol] 104 mg/dL 70-100 [facility] Comment on above: ADA recommended refe rence rangeRandom Glucose Reference Range is dependent on time and content of last meal. Glucose of more than 200 mg/dL in a nonstressed, ambulatory subject supports the diagnosis of Diabetes Mellitus. Hematocrit Auto (Bld) [Volum e fraction]Ordered By: Farhat Castro on 02-05-2023 Hematocrit (Bld) [Volume fraction] 43.5 % 34.0-46.4 [facility] Hemoglobin [Mass/volume] in BloodOrdered By: Farhat Castro on 02-05-2023 Hemoglobin (Bld) [Mass/Vol] 13.9 g/dL 11.8-15.4 [facility] Laboratory - CoagulationOrde red By: Farhat Castro on 02-05-2023 PT Coag (PPP) [Time] 11.5 s 9.0-12.9 [facility] Leukocytes [#/volume] correc taurus for nucleated erythrocytes in Blood by Automated counOrdered By: Farhat Castro on 02-05-2023 WBC corrected for nucl RBC Auto (Bld) [#/Vol] 13.3 10*3/uL 3.8-11.6 [facility] Lymphocytes Auto (Bld) [#/Vo l]Ordered By: Farhat Castro on 02-05-2023 Lymphocytes (Bld) [#/Vol] 2.5 10*3/uL 1.00-4.8 [facility] Lymphocytes/100 WBC Auto (Bl d)Ordered By: Farhat Castro on 02-05-2023 Lymphocytes/100 WBC (Bld) 18.5 % . [facility] MCH Auto (RBC) [Entitic mass ]Ordered By: Farhat Castro on 02-05-2023 MCH (RBC) [Entitic mass] 25.5 pg 24.7-34.3 [facility] MCHC Auto (RBC) [Mass/Vol]Or dered By: Farhat Castro on 02-05-2023 MCHC (RBC) [Mass/Vol] 32.0 g/dL 32.0-35.0 [facility] MCV Auto (RBC) [Entitic vol] Ordered By: Farhat Castro on 02-05-2023 MCV (RBC) [Entitic vol] 79.8 fL 80-100 [facility] Microcytes LM Ql (Bld)Ordere d By: Farhat Castro on 02-05-2023 Microcytes Ql (Bld) Slight [facility] Monocyte distribution width [Entitic volume] in Blood by AutomatedOrdered By: Farhat Castro on 02-05-2023 Monocyte distribution width Auto (Bld) [Entitic vol] 17.41 % 0.00-20.00 [facility] Monocytes Auto (Bld) [#/Vol] Ordered By: Farhat Castro on 02-05-2023 Monocytes (Bld) [#/Vol] 0.7 10*3/uL 0.0-0.8 [facility] Monocytes/100 WBC Auto (Bld) Ordered By: Farhat Castro on 02-05-2023 Monocytes/100 WBC (Bld) 5.6 % . [facility] Natriuretic peptide B [Mass/ Vol]Ordered By: Farhat Castro on 02-05-2023 Natriuretic peptide B (Bld) [Mass/Vol] 23.0 pg/mL 5-100 [facility] Neutrophils Auto (Bld) [#/Vo l]Ordered By: Farhat Castro on 02-05-2023 Neutrophils (Bld) [#/Vol] 9.9 10*3/uL 1.8-7.7 [facility] Neutrophils/100 WBC Auto (Bl d)Ordered By: Farhat Castro on 02-05-2023 Neutrophils/100 WBC (Bld) 74.2 % . [facility] No Panel InformationOrdered By: Farhat Castro on 02-05-2023 Estimated GFR (CKD-EPI) > 60.0 mL/Min [facility] Creatinine Clearance (Chem 175.68 [facility] Nucleated erythrocytes [Pres ence] in Blood by Automated countOrdered By: Farhat Castro on 02-05-2023 Nucleated RBC Auto Ql (Bld) 0.1 /100{WBC} 0-0.5 [facility] Platelet adequacy [Presence] in Blood by Light microscopyOrdered By: Farhat Castro on 02-05-2023 Platelets LM Ql (Bld) Normal Normal [facility] Platelet mean volume Auto (B ld) [Entitic vol]Ordered By: Farhat Castro on 02-05-2023 Platelet mean volume (Bld) [Entitic vol] 9.8 fL 6.3-10.7 [facility] Platelet morphology finding [Identifier] in BloodOrdered By: Farhat Castro on 02-05-2023 Platelet morphology finding Nom (Bld) Normal Normal [facility] Platelet poor plasma interna tional normalized ratio (INR) by coagulation assay (relatOrdered By: Farhat Castro on 02-05-2023 INR Coag (PPP) [Relative time] 1.0 {INR} [facility] Comment on above: INR Therapeutic Rang [...] 02-05-2023 Platelets (Bld) [#/Vol] 240 10*3/uL 150-450 [facility] Potassium [Moles/volume] in Serum or PlasmaOrdered By: Farhat Castro on 02-05-2023 Potassium [Moles/Vol] 4.4 mmol/L 3.5-5.1 [facility] RBC Auto (Bld) [#/Vol]Ordere d By: Farhat Castro on 02-05-2023 RBC (Bld) [#/Vol] 5.45 10*6/uL 3.60-5.00 [facility] RBC morphologyOrdered By: Simone Castro on 02-05-2023 RBC morphology finding Nom (Bld) N/A [facility] Serum or plasma anion gap de terminationOrdered By: Farhat Castro on 02-05-2023 Anion gap [Moles/Vol] 10.9 mmol/L 6.0-15.0 [facility] Sodium [Moles/volume] in Ser um or PlasmaOrdered By: Farhat Castro on 02-05-2023 Sodium [Moles/Vol] 137 mmol/L 136-145 [facility] Troponin I.cardiac [Mass/vol ume] in Serum or Plasma by Detection limit <= 0.01 ng/Ordered By: Farhat Castro on 02-05-2023 Troponin I.cardiac DL <= 0.01 ng/mL [Mass/Vol] 4.0 pg/mL 0.0-15.0 [facility] Urea nitrogen [Mass/volume] in Serum or PlasmaOrdered By: Farhat Castro on 02-05-2023 Urea nitrogen [Mass/Vol] 16 mg/dL 7-25 [facility] WBC Auto (Bld) [#/Vol]Ordere d By: Farhat Castro on 02-05-2023 WBC (Bld) [#/Vol] 13.3 10*3/uL 3.8-11.6 [facility] Bilirubin Test strip Ql (U)O rdered By: Damien Rashid on 01-15-2023 Bilirubin Ql (U) Negative Negative [facility] Color Auto (U)Ordered By: Ismael Rashid on 01-15-2023 Color (U) Yellow Yellow [facility] HCG ( test) IA.rapi d Ql (U)Ordered By: Damien Rashid on 01-15-2023 HCG ( test) Ql (U) Negative [facility] Ketones Auto test strip (U) [Mass/Vol]Ordered By: Damien Rashid on 01-15-2023 Ketones (U) [Mass/Vol] Negative Negative [facility] Nitrite Test strip Ql (U)Ord ered By: Damien Rashid on 01-15-2023 Nitrite Ql (U) Negative Negative [facility] Potassium [Moles/volume] in Serum or PlasmaOrdered By: Damien Rashid on 01-15-2023 Potassium [Moles/Vol] 3.6 mmol/L 3.5-5.1 [facility] Protein Auto test strip (U) [Mass/Vol]Ordered By: Damien Rashid on 01-15-2023 Protein (U) [Mass/Vol] Negative Negative [facility] Specific gravity Auto test s trip (U) [Rel density]Ordered By: Damien Rashid on 01-15-2023 Specific gravity (U) [Rel density] 1.017 1.001-1.03 0 [facility] Troponin I.cardiac [Mass/vol ume] in Serum or Plasma by Detection limit <= 0.01 ng/Ordered By: Damien Rashid on 01-15-2023 Troponin I.cardiac DL <= 0.01 ng/mL [Mass/Vol] 3.7 pg/mL 0.0-15.0 [facility] Urine clarity by refractomet ry automatedOrdered By: Damien Rashid on 01-15-2023 Clarity Refractometry automated (U) Clear Clear [facility] Urine glucose measurement by automated test strip (mass/volume)Ordered By: Damien Rashid on 01-15-2023 Glucose Auto test strip (U) [Mass/Vol] Normal mg/dL Normal [facility] Urine hemoglobin detection b y automated test stripOrdered By: Damien Rashid on 01-15-2023 Hemoglobin Auto test strip Ql (U) Negative Negative [facility] Urine leukocyte esterase det ection by automated test stripOrdered By: Damien Rashid on 01-15-2023 Leukocyte esterase Auto test strip Ql (U) Negative Negative [facility] Urobilinogen Auto test strip (U) [Mass/Vol]Ordered By: Damien Rashid on 01-15-2023 Urobilinogen (U) [Mass/Vol] Normal mg/dL Normal [facility] pH Auto test strip (U)Ordere d By: Damien Rashid on 01-15-2023 pH (U) 6.0 [pH] 5.0-9.0 [facility] Activated partial thrombopla stin time (aPTT) in platelet poor plasma by coagulation aOrdered By: Damien Rashid on 01-14-2023 aPTT Coag (PPP) [Time] 31.3 s 25.1-36.5 [facility] Basophils Auto (Bld) [#/Vol] Ordered By: Damien Rashid on 01-14-2023 Basophils (Bld) [#/Vol] 0.1 10*3/uL 0.0-0.2 [facility] Basophils/100 WBC Auto (Bld) Ordered By: Damien Rashid on 01-14-2023 Basophils/100 WBC (Bld) 1.0 % . [facility] Calcium [Mass/volume] in Ser um or PlasmaOrdered By: Damien Rashid on 01-14-2023 Calcium [Mass/Vol] 9.1 mg/dL 8.6-10.3 [facility] Carbon dioxide, total [Moles /volume] in Serum or PlasmaOrdered By: Damien Rashid on 01-14-2023 CO2 [Moles/Vol] 24.4 mmol/L 21.0-31.0 [facility] Chloride [Moles/volume] in S gale or PlasmaOrdered By: Damien Rashid on 01-14-2023 Chloride [Moles/Vol] 105 mmol/L 98-107 [facility] Creatinine [Mass/volume] in Serum or PlasmaOrdered By: Damien Rashid on 01-14-2023 Creatinine [Mass/Vol] 0.61 mg/dL 0.60-1.20 [facility] Eosinophils Auto (Bld) [#/Vo l]Ordered By: Damien Rashid on 01-14-2023 Eosinophils (Bld) [#/Vol] 0.1 10*3/uL 0.0-0.45 [facility] Eosinophils/100 WBC Auto (Bl d)Ordered By: Damien Rashid on 01-14-2023 Eosinophils/100 WBC (Bld) 0.8 % . [facility] Erythrocyte distribution wid th Auto (RBC) [Ratio]Ordered By: Damien Rashid on 01-14-2023 Erythrocyte distribution width (RBC) [Ratio] 18.9 % 11.9-15.3 [facility] Glucose [Mass/volume] in Ser um or PlasmaOrdered By: Damien Rashid on 01-14-2023 Glucose [Mass/Vol] 91 mg/dL 74-109 [facility] Comment on above: ADA recommended refe rence rangeRandom Glucose Reference Range is dependent on time and content of last meal. Glucose of more than 200 mg/dL in a nonstressed, ambulatory subject supports the diagnosis of Diabetes Mellitus. Hematocrit Auto (Bld) [Volum e fraction]Ordered By: Damien Rashid on 01-14-2023 Hematocrit (Bld) [Volume fraction] 42.9 % 34.0-46.4 [facility] Hemoglobin [Mass/volume] in BloodOrdered By: Damien Rashid on 01-14-2023 Hemoglobin (Bld) [Mass/Vol] 14.0 g/dL 11.8-15.4 [facility] Laboratory - Chemistry and C hemistry - challengeOrdered By: Damien Rashid on 01-14-2023 GFR/1.73 sq M.predicted MDRD (S/P/Bld) [Vol rate/Area] mL/min/{1.73_m2} [facility] - CoagulationOrde red By: Damien Rashid on 01-14-2023 PT Coag (PPP) [Time] 12.2 s 9.0-12.9 [facility] Leukocytes [#/volume] correc taurus for nucleated erythrocytes in Blood by Automated counOrdered By: Damien Rashid on 01-14-2023 WBC corrected for nucl RBC Auto (Bld) [#/Vol] 11.7 10*3/uL 3.8-11.6 [facility] Lymphocytes Auto (Bld) [#/Vo l]Ordered By: Damien Rashid on 01-14-2023 Lymphocytes (Bld) [#/Vol] 2.9 10*3/uL 1.00-4.8 [facility] Lymphocytes/100 WBC Auto (Bl d)Ordered By: Damien Rashid on 01-14-2023 Lymphocytes/100 WBC (Bld) 24.4 % . [facility] MCH Auto (RBC) [Entitic mass ]Ordered By: Damien Rashid on 01-14-2023 MCH (RBC) [Entitic mass] 25.7 pg 24.7-34.3 [facility] MCHC Auto (RBC) [Mass/Vol]Or dered By: Damien Rashid on 01-14-2023 MCHC (RBC) [Mass/Vol] 32.7 g/dL 32.0-35.0 [facility] MCV Auto (RBC) [Entitic vol] Ordered By: Damien Rashid on 01-14-2023 MCV (RBC) [Entitic vol] 78.7 fL 80-100 [facility] Monocyte distribution width [Entitic volume] in Blood by AutomatedOrdered By: Damien Rashid on 01-14-2023 Monocyte distribution width Auto (Bld) [Entitic vol] 21.82 % 0.00-20.00 [facility] Comment on above: For adults in ED, MD W > 20.0 may be associated with a higher risk of sepsis during the first 12 hrs of hospital admission Monocytes Auto (Bld) [#/Vol] Ordered By: Damien Rashid on 01-14-2023 Monocytes (Bld) [#/Vol] 0.8 10*3/uL 0.0-0.8 [facility] Monocytes/100 WBC Auto (Bld) Ordered By: Damien Rashid on 01-14-2023 Monocytes/100 WBC (Bld) 6.8 % . [facility] Natriuretic peptide B [Mass/ Vol]Ordered By: Damien Rashid on 01-14-2023 Natriuretic peptide B (Bld) [Mass/Vol] 6.0 pg/mL 5-100 [facility] Neutrophils Auto (Bld) [#/Vo l]Ordered By: Damien Rashid on 01-14-2023 Neutrophils (Bld) [#/Vol] 7.9 10*3/uL 1.8-7.7 [facility] Neutrophils/100 WBC Auto (Bl d)Ordered By: Damien Rashid on 01-14-2023 Neutrophils/100 WBC (Bld) 67.0 % . [facility] No Panel InformationOrdered By: Damien Rashid on 01-14-2023 Pharmacy Creatinine Clearance (Chem 158.87 [facility] Nucleated erythrocytes [Pres ence] in Blood by Automated countOrdered By: Damien Rashid on 01-14-2023 Nucleated RBC Auto Ql (Bld) 0.2 /100{WBC} 0-0.5 [facility] Platelet mean volume Auto (B ld) [Entitic vol]Ordered By: Damien Rashid on 01-14-2023 Platelet mean volume (Bld) [Entitic vol] 9.8 fL 6.3-10.7 [facility] Platelet poor plasma interna tional normalized ratio (INR) by coagulation assay (relatOrdered By: Damien Rashid on 01-14-2023 INR Coag (PPP) [Relative time] 1.0 {INR} [facility] Comment on above: INR Therapeutic Rang [...] 01-14-2023 Platelets (Bld) [#/Vol] 254 10*3/uL 150-450 [facility] RBC Auto (Bld) [#/Vol]Ordere d By: Damien Rashid on 01-14-2023 RBC (Bld) [#/Vol] 5.44 10*6/uL 3.60-5.00 [facility] Serum or plasma anion gap de terminationOrdered By: Damien Rashid on 01-14-2023 Anion gap [Moles/Vol] N/A [facility] Sodium [Moles/volume] in Ser um or PlasmaOrdered By: Damien Rashid on 01-14-2023 Sodium [Moles/Vol] 138 mmol/L 136-145 [facility] Urea nitrogen [Mass/volume] in Serum or PlasmaOrdered By: Damien Rashid on 01-14-2023 Urea nitrogen [Mass/Vol] 16 mg/dL 7-25 [facility] WBC Auto (Bld) [#/Vol]Ordere d By: Damien Rashid on 01-14-2023 WBC (Bld) [#/Vol] 11.7 10*3/uL 3.8-11.6 [facility] Basophils Auto (Bld) [#/Vol] Ordered By: Larissa Resendiz on 01-11-2023 Basophils (Bld) [#/Vol] 0.1 10*3/uL 0.0-0.2 [facility] Basophils/100 WBC Auto (Bld) Ordered By: Larissa Resendiz on 01-11-2023 Basophils/100 WBC (Bld) 0.5 % . [facility] Eosinophils Auto (Bld) [#/Vo l]Ordered By: Larissa Resendiz on 01-11-2023 Eosinophils (Bld) [#/Vol] 0.1 10*3/uL 0.0-0.45 [facility] Eosinophils/100 WBC Auto (Bl d)Ordered By: Larissa Resendiz on 01-11-2023 Eosinophils/100 WBC (Bld) 1.0 % . [facility] Erythrocyte distribution wid th Auto (RBC) [Ratio]Ordered By: Larissa Resendiz on 01-11-2023 Erythrocyte distribution width (RBC) [Ratio] 19.5 % 11.9-15.3 [facility] Hematocrit Auto (Bld) [Volum e fraction]Ordered By: Larissa Resendiz on 01-11-2023 Hematocrit (Bld) [Volume fraction] 41.4 % 34.0-46.4 [facility] Hemoglobin [Mass/volume] in BloodOrdered By: Larissa Resendiz on 01-11-2023 Hemoglobin (Bld) [Mass/Vol] 13.3 g/dL 11.8-15.4 [facility] Leukocytes [#/volume] correc taurus for nucleated erythrocytes in Blood by Automated counOrdered By: Larissa Resendiz on 01-11-2023 WBC corrected for nucl RBC Auto (Bld) [#/Vol] 12.9 10*3/uL 3.8-11.6 [facility] Lymphocytes Auto (Bld) [#/Vo l]Ordered By: Larissa Resendiz on 01-11-2023 Lymphocytes (Bld) [#/Vol] 2.9 10*3/uL 1.00-4.8 [facility] Lymphocytes/100 WBC Auto (Bl d)Ordered By: Larissa Resendiz on 01-11-2023 Lymphocytes/100 WBC (Bld) 22.7 % . [facility] MCH Auto (RBC) [Entitic mass ]Ordered By: Larissa Resendiz on 01-11-2023 MCH (RBC) [Entitic mass] 25.4 pg 24.7-34.3 [facility] MCHC Auto (RBC) [Mass/Vol]Or dered By: Larissa Resendiz on 01-11-2023 MCHC (RBC) [Mass/Vol] 32.3 g/dL 32.0-35.0 [facility] MCV Auto (RBC) [Entitic vol] Ordered By: Larissa Resendiz on 01-11-2023 MCV (RBC) [Entitic vol] 78.8 fL 80-100 [facility] Monocytes Auto (Bld) [#/Vol] Ordered By: Larissa Resendiz on 01-11-2023 Monocytes (Bld) [#/Vol] 0.5 10*3/uL 0.0-0.8 [facility] Monocytes/100 WBC Auto (Bld) Ordered By: Larissa Resendiz on 01-11-2023 Monocytes/100 WBC (Bld) 4.1 % . [facility] Neutrophils Auto (Bld) [#/Vo l]Ordered By: Larissa Resendiz on 01-11-2023 Neutrophils (Bld) [#/Vol] 9.2 10*3/uL 1.8-7.7 [facility] Neutrophils/100 WBC Auto (Bl d)Ordered By: Larissa Resendiz on 01-11-2023 Neutrophils/100 WBC (Bld) 71.7 % . [facility] Nucleated erythrocytes [Pres ence] in Blood by Automated countOrdered By: Larissa Resendiz on 01-11-2023 Nucleated RBC Auto Ql (Bld) 0.1 /100{WBC} 0-0.5 [facility] Platelet mean volume Auto (B ld) [Entitic vol]Ordered By: Larissa Resendiz on 01-11-2023 Platelet mean volume (Bld) [Entitic vol] 10.6 fL 6.3-10.7 [facility] Platelets Auto (Bld) [#/Vol] Ordered By: Larissa Resendiz on 01-11-2023 Platelets (Bld) [#/Vol] 250 10*3/uL 150-450 [facility] RBC Auto (Bld) [#/Vol]Ordere d By: Larissa Resendiz on 01-11-2023 RBC (Bld) [#/Vol] 5.25 10*6/uL 3.60-5.00 [facility] WBC Auto (Bld) [#/Vol]Ordere d By: Larissa Resendiz on 01-11-2023 WBC (Bld) [#/Vol] 12.9 10*3/uL 3.8-11.6 [facility] Alanine aminotransferase [En zymatic activity/volume] in Serum or PlasmaOrdered By: Jah Almonte on 01-10-2023 ALT [Catalytic activity/Vol] 16 U/L 7 [facility] Alanine aminotransferase [En zymatic activity/volume] in Serum or PlasmaOrdered By: Larissa Resendiz on 01-10-2023 ALT [Catalytic activity/Vol] 15 U/L 52 [facility] Albumin [Mass/volume] in Ser um or Plasma by Bromocresol green (BCG) dye binding methoOrdered By: Jah Almonte on 01-10-2023 Albumin BCG dye [Mass/Vol] 4.2 g/dL 3.5-5.7 [facility] Albumin [Mass/volume] in Ser um or Plasma by Bromocresol green (BCG) dye binding methoOrdered By: Larissa Resendiz on 01-10-2023 Albumin BCG dye [Mass/Vol] 4.1 g/dL 3.5-5.7 [facility] Alkaline phosphatase [Enzyma tic activity/volume] in Serum or PlasmaOrdered By: Jah Almonte on 01-10-2023 ALP [Catalytic activity/Vol] 94 U/L 34-104 [facility] Alkaline phosphatase [Enzyma tic activity/volume] in Serum or PlasmaOrdered By: Larissa Resendiz on 01-10-2023 ALP [Catalytic activity/Vol] 92 U/L 34-104 [facility] Aspartate aminotransferase [ Enzymatic activity/volume] in Serum or PlasmaOrdered By: Jah Almonte on 01-10-2023 AST [Catalytic activity/Vol] 14 U/L 13-39 [facility] Aspartate aminotransferase [ Enzymatic activity/volume] in Serum or PlasmaOrdered By: Larissa Resendiz on 01-10-2023 AST [Catalytic activity/Vol] 15 U/L 13-39 [facility] Basophils Auto (Bld) [#/Vol] Ordered By: Jah Almonte on 01-10-2023 Basophils (Bld) [#/Vol] 0.1 10*3/uL 0.0-0.2 [facility] Basophils/100 WBC Auto (Bld) Ordered By: Jah Almonte on 01-10-2023 Basophils/100 WBC (Bld) 0.8 % . [facility] Bilirubin Test strip Ql (U)O rdered By: Jah Almonte on 01-10-2023 Bilirubin Ql (U) Negative Negative [facility] Bilirubin.total [Mass/volume ] in Serum or PlasmaOrdered By: Jah Almonte on 01-10-2023 Bilirubin [Mass/Vol] 0.3 mg/dL 0.3-1.0 [facility] Bilirubin.total [Mass/volume ] in Serum or PlasmaOrdered By: Larissa Resendiz on 01-10-2023 Bilirubin [Mass/Vol] 0.2 mg/dL 0.3-1.0 [facility] Calcium [Mass/volume] in Ser um or PlasmaOrdered By: Jah Almonte on 01-10-2023 Calcium [Mass/Vol] 9.0 mg/dL 8.6-10.3 [facility] Calcium [Mass/volume] in Ser um or PlasmaOrdered By: Larissa Resendiz on 01-10-2023 Calcium [Mass/Vol] 8.9 mg/dL 8.6-10.3 [facility] Carbon dioxide, total [Moles /volume] in Serum or PlasmaOrdered By: Jah Almonte on 01-10-2023 CO2 [Moles/Vol] 25.8 mmol/L 21.0-31.0 [facility] Carbon dioxide, total [Moles /volume] in Serum or PlasmaOrdered By: Larissa Resendiz on 01-10-2023 CO2 [Moles/Vol] 22.9 mmol/L 21.0-31.0 [facility] Chloride [Moles/volume] in S gale or PlasmaOrdered By: Jah Almonte on 01-10-2023 Chloride [Moles/Vol] 105 mmol/L 98-107 [facility] Chloride [Moles/volume] in S gale or PlasmaOrdered By: Larissa Resendiz on 01-10-2023 Chloride [Moles/Vol] 104 mmol/L 98-107 [facility] Cholesterol [Mass/volume] in Serum or PlasmaOrdered By: Larissa Resendiz on 01-10-2023 Cholesterol [Mass/Vol] 213 mg/dL 140-200 [facility] Comment on above: Chol less than 200 m g/dl low riskChol 201-239 mg/dl borderline riskChol 240 mg/dl and greater high risk Cholesterol in LDL Calc [Mas s/Vol]Ordered By: Larissa Resendiz on 01-10-2023 Cholesterol in LDL [Mass/Vol] 141 mg/dL 0-100 [facility] Comment on above: LDL ATP III CLASSIFI CATIONLDL less than 100 mg/dL OptimalLDL 100-129 mg/dL Near or above optimalLDL 130-159 mg/dL Borderline highLDL 160-189 mg/dL HighLDL greater than 189 mg/dL Very high Cholesterol in VLDL Calc [Ma ss/Vol]Ordered By: Larissa Resendiz on 01-10-2023 Cholesterol in VLDL [Mass/Vol] 23 mg/dL [facility] Color Auto (U)Ordered By: Cali Almonte on 01-10-2023 Color (U) Yellow Yellow [facility] Creatinine [Mass/volume] in Serum or PlasmaOrdered By: Jah Almonte on 01-10-2023 Creatinine [Mass/Vol] 0.67 mg/dL 0.60-1.20 [facility] Creatinine [Mass/volume] in Serum or PlasmaOrdered By: Larissa Resendiz on 01-10-2023 Creatinine [Mass/Vol] 0.66 mg/dL 0.60-1.20 [facility] Eosinophils Auto (Bld) [#/Vo l]Ordered By: Jah Almonte on 01-10-2023 Eosinophils (Bld) [#/Vol] 0.1 10*3/uL 0.0-0.45 [facility] Eosinophils/100 WBC Auto (Bl d)Ordered By: Jah Almonte on 01-10-2023 Eosinophils/100 WBC (Bld) 0.8 % . [facility] Erythrocyte distribution wid th Auto (RBC) [Ratio]Ordered By: Jah Almonte on 01-10-2023 Erythrocyte distribution width (RBC) [Ratio] 19.3 % 11.9-15.3 [facility] Globulin Calc (S) [Mass/Vol] Ordered By: Jah Almonte on 01-10-2023 Globulin (S) [Mass/Vol] 2.7 g/dL [facility] Globulin Calc (S) [Mass/Vol] Ordered By: Larissa Resendiz on 01-10-2023 Globulin (S) [Mass/Vol] 2.8 g/dL [facility] Glucose Glucometer (BldC) [M ass/Vol]Ordered By: Jah Almonte on 01-10-2023 Glucose [Mass/Vol] 142 mg/dL [facility] Comment on above: Random Glucose Refer ence Range is dependent on time and content of last meal. Glucose of more than 200 mg/dL in a nonstressed, ambulatory subject supports the diagnosis of Diabetes Mellitus. Glucose [Mass/volume] in Ser um or PlasmaOrdered By: Jah Almonte on 01-10-2023 Glucose [Mass/Vol] 140 mg/dL 74-109 [facility] Comment on above: ADA recommended refe rence rangeRandom Glucose Reference Range is dependent on time and content of last meal. Glucose of more than 200 mg/dL in a nonstressed, ambulatory subject supports the diagnosis of Diabetes Mellitus. Glucose [Mass/volume] in Ser um or PlasmaOrdered By: Larissa Resendiz on 01-10-2023 Glucose [Mass/Vol] 138 mg/dL 74-109 [facility] Comment on above: ADA recommended refe rence rangeRandom Glucose Reference Range is dependent on time and content of last meal. Glucose of more than 200 mg/dL in a nonstressed, ambulatory subject supports the diagnosis of Diabetes Mellitus. HCG ( test) IA.rapi d Ql (U)Ordered By: Jah Almonte on 01-10-2023 HCG ( test) Ql (U) Negative [facility] Hematocrit Auto (Bld) [Volum e fraction]Ordered By: Jah Almonte on 01-10-2023 Hematocrit (Bld) [Volume fraction] 40.9 % 34.0-46.4 [facility] Hemoglobin [Mass/volume] in BloodOrdered By: Jah Almonte on 01-10-2023 Hemoglobin (Bld) [Mass/Vol] 13.5 g/dL 11.8-15.4 [facility] Ketones Auto test strip (U) [Mass/Vol]Ordered By: Jah Almonte on 01-10-2023 Ketones (U) [Mass/Vol] Negative Negative [facility] Laboratory - Chemistry and C hemistry - challengeOrdered By: Jah Almonte on 01-10-2023 GFR/1.73 sq M.predicted MDRD (S/P/Bld) [Vol rate/Area] mL/min/{1.73_m2} [facility] Leukocytes [#/volume] correc taurus for nucleated erythrocytes in Blood by Automated counOrdered By: Jah Almonte on 01-10-2023 WBC corrected for nucl RBC Auto (Bld) [#/Vol] 13.3 10*3/uL 3.8-11.6 [facility] Lymphocytes Auto (Bld) [#/Vo l]Ordered By: Jah Almonte on 01-10-2023 Lymphocytes (Bld) [#/Vol] 2.9 10*3/uL 1.00-4.8 [facility] Lymphocytes/100 WBC Auto (Bl d)Ordered By: Jah Almonte on 01-10-2023 Lymphocytes/100 WBC (Bld) 21.5 % . [facility] MCH Auto (RBC) [Entitic mass ]Ordered By: Jah Almonte on 01-10-2023 MCH (RBC) [Entitic mass] 25.8 pg 24.7-34.3 [facility] MCHC Auto (RBC) [Mass/Vol]Or dered By: Jah Almonte on 01-10-2023 MCHC (RBC) [Mass/Vol] 33.1 g/dL 32.0-35.0 [facility] MCV Auto (RBC) [Entitic vol] Ordered By: Jah Almonte on 01-10-2023 MCV (RBC) [Entitic vol] 77.9 fL 80-100 [facility] Magnesium [Mass/volume] in S gale or PlasmaOrdered By: Jah Almonte on 01-10-2023 Magnesium [Mass/Vol] 2.2 mg/dL 1.9-2.7 [facility] Monocyte distribution width [Entitic volume] in Blood by AutomatedOrdered By: Jah Almonte on 01-10-2023 Monocyte distribution width Auto (Bld) [Entitic vol] 20.66 % 0.00-20.00 [facility] Comment on above: For adults in ED, MD W > 20.0 may be associated with a higher risk of sepsis during the first 12 hrs of hospital admission Monocytes Auto (Bld) [#/Vol] Ordered By: Jah Almonte on 01-10-2023 Monocytes (Bld) [#/Vol] 0.6 10*3/uL 0.0-0.8 [facility] Monocytes/100 WBC Auto (Bld) Ordered By: Jah Almonte on 01-10-2023 Monocytes/100 WBC (Bld) 4.2 % . [facility] Neutrophils Auto (Bld) [#/Vo l]Ordered By: Jah Almonte on 01-10-2023 Neutrophils (Bld) [#/Vol] 9.7 10*3/uL 1.8-7.7 [facility] Neutrophils/100 WBC Auto (Bl d)Ordered By: Jah Almonte on 01-10-2023 Neutrophils/100 WBC (Bld) 72.7 % . [facility] Nitrite Test strip Ql (U)Ord ered By: Jah Almonte on 01-10-2023 Nitrite Ql (U) Negative Negative [facility] No Panel InformationOrdered By: Jah Almonte on 01-10-2023 Bedside Glucose #2 Comment Cleaned meter [facility] Bedside Glucose Comment See comment [facility] Comment on above: Glu2: WILL NOTIFY DR /RN Pharmacy Creatinine Clearance (Chem 146.37 [facility] No Panel InformationOrdered By: Larissa Resendiz on 01-10-2023 Pharmacy Creatinine Clearance (Chem N/A [facility] Nucleated erythrocytes [Pres ence] in Blood by Automated countOrdered By: Jah Almonte on 01-10-2023 Nucleated RBC Auto Ql (Bld) 0.0 /100{WBC} 0-0.5 [facility] Platelet mean volume Auto (B ld) [Entitic vol]Ordered By: Jah Almonte on 01-10-2023 Platelet mean volume (Bld) [Entitic vol] 9.4 fL 6.3-10.7 [facility] Platelets Auto (Bld) [#/Vol] Ordered By: Jah Almonte on 01-10-2023 Platelets (Bld) [#/Vol] 241 10*3/uL 150-450 [facility] Potassium [Moles/volume] in Serum or PlasmaOrdered By: Jah Almonte on 01-10-2023 Potassium [Moles/Vol] 3.5 mmol/L 3.5-5.1 [facility] Protein Auto test strip (U) [Mass/Vol]Ordered By: Jah Almonte on 01-10-2023 Protein (U) [Mass/Vol] Negative Negative [facility] Protein [Mass/volume] in Ser um or PlasmaOrdered By: Jah Almonte on 01-10-2023 Protein [Mass/Vol] 6.9 g/dL 6.4-8.9 [facility] RBC Auto (Bld) [#/Vol]Ordere d By: Jah Almonte on 01-10-2023 RBC (Bld) [#/Vol] 5.25 10*6/uL 3.60-5.00 [facility] Serum or plasma albumin/glob ulin mass ratioOrdered By: Jah Almonte on 01-10-2023 Albumin/Globulin [Mass ratio] 1.6 {ratio} [facility] Serum or plasma albumin/glob ulin mass ratioOrdered By: Larissa Resendiz on 01-10-2023 Albumin/Globulin [Mass ratio] 1.5 {ratio} [facility] Serum or plasma anion gap de terminationOrdered By: Jah Almonte on 01-10-2023 Anion gap [Moles/Vol] 11.7 mmol/L 6.0-15.0 [facility] Serum or plasma anion gap de terminationOrdered By: Larissa Resendiz on 01-10-2023 Anion gap [Moles/Vol] 15.6 mmol/L 6.0-15.0 [facility] Serum or plasma high density lipoprotein (HDL) cholesterol measurementOrdered By: Larissa Resendiz on 01-10-2023 Cholesterol in HDL [Mass/Vol] 48 mg/dL 35-85 [facility] Comment on above: HDL CHOL ATP-III CLA SSIFICATION Cardiovascular RiskHDL > or equal to 60 mg/dL LOWHDL < 40 mg/dL HIGH Serum or plasma total choles terol/high density lipoprotein (HDL) cholesterol mass ratOrdered By: Larissa Resendiz on 01-10-2023 Cholesterol.total/Cho lesterol in HDL [Mass ratio] 4.4 {ratio} <5.0 [facility] Sodium [Moles/volume] in Ser um or PlasmaOrdered By: Jah Almonte on 01-10-2023 Sodium [Moles/Vol] 139 mmol/L 136-145 [facility] Specific gravity Auto test s trip (U) [Rel density]Ordered By: Jah Almonte on 01-10-2023 Specific gravity (U) [Rel density] 1.015 1.001-1.03 0 [facility] Thyrotropin [Units/volume] i n Serum or PlasmaOrdered By: Larissa Resendiz on 01-10-2023 TSH Qn 1.60 m[IU]/L 0.45-5.33 [facility] Triglyceride [Mass/volume] i n Serum or PlasmaOrdered By: Larissa Resendiz on 01-10-2023 Triglyceride [Mass/Vol] 119 mg/dL 0-149 [facility] Comment on above: TRIG ATP III [...] <= 0.01 ng/mL [Mass/Vol] 3.6 pg/mL 0.0-15.0 [facility] Urea nitrogen [Mass/volume] in Serum or PlasmaOrdered By: Jah Almonte on 01-10-2023 Urea nitrogen [Mass/Vol] 20 mg/dL 7-25 [facility] Urine clarity by refractomet ry automatedOrdered By: Jah Almonte on 01-10-2023 Clarity Refractometry automated (U) Clear Clear [facility] Urine glucose measurement by automated test strip (mass/volume)Ordered By: Jah Almonte on 01-10-2023 Glucose Auto test strip (U) [Mass/Vol] Normal mg/dL Normal [facility] Urine hemoglobin detection b y automated test stripOrdered By: Jah Almonte on 01-10-2023 Hemoglobin Auto test strip Ql (U) Negative Negative [facility] Urine leukocyte esterase det ection by automated test stripOrdered By: Jah Almonte on 01-10-2023 Leukocyte esterase Auto test strip Ql (U) Negative Negative [facility] Urobilinogen Auto test strip (U) [Mass/Vol]Ordered By: Jah Almonte on 01-10-2023 Urobilinogen (U) [Mass/Vol] Normal mg/dL Normal [facility] Vitamin B12 ser/plasOrdered By: Larissa Resendiz on 01-10-2023 Cobalamin (Vitamin B12) [Mass/Vol] 457 pg/mL 180-914 [facility] WBC Auto (Bld) [#/Vol]Ordere d By: Jah Almonte on 01-10-2023 WBC (Bld) [#/Vol] 13.3 10*3/uL 3.8-11.6 [facility] pH Auto test strip (U)Ordere d By: Jah Almonte on 01-10-2023 pH (U) 5.5 [pH] 5.0-9.0 [facility] Albumin [Mass/volume] in Bod y fluidOrdered By: Keith Lugo on 12-27-2022 Albumin (Body fld) [Mass/Vol] 3.6 g/dL 3.2-5.5 [facility] Alkaline phosphatase [Enzyma tic activity/volume] in Serum or PlasmaOrdered By: Keith Lugo on 12-27-2022 ALP [Catalytic activity/Vol] 95 U/L 32-92 [facility] Aspartate aminotransferase [ Enzymatic activity/volume] in Serum or PlasmaOrdered By: Keith Lugo on 12-27-2022 AST [Catalytic activity/Vol] 17 U/L 10-42 [facility] Basophils Auto (Bld) [#/Vol] Ordered By: Keith Lugo on 12-27-2022 Basophils (Bld) [#/Vol] 0.1 10*3/uL 0.0-0.2 [facility] Basophils/100 WBC Auto (Bld) Ordered By: Keith Lugo on 12-27-2022 Basophils/100 WBC (Bld) 0.8 % . [facility] Bilirubin Test strip Ql (U)O rdered By: Keith Lugo on 12-27-2022 Bilirubin Ql (U) Negative Negative [facility] Bilirubin.total [Mass/volume ] in Serum or PlasmaOrdered By: Keith Lugo on 12-27-2022 Bilirubin [Mass/Vol] 0.2 mg/dL 0.3-1.2 [facility] COVID CepheidOrdered By: Dusty Lugo on 12-27-2022 SARS-CoV-2 (COVID-19) Ab IA Ql Negative Negative [facility] Comment on above: This is a duplicate [employer] CoV-2/Flu/RSV Plus RNA by RT-PCR result to be used for statistical tracking purpose only. SARS-CoV-2 (COVID-19) RNA JUDIT+probe Ql (Unsp spec) [facility] SARS-CoV-2 (COVID-19) RNA JUDIT+probe Ql (Unsp spec) [facility] Calcium [Mass/volume] in Ser um or PlasmaOrdered By: Keith Lugo on 12-27-2022 Calcium [Mass/Vol] 8.9 mg/dL 8.2-10.2 [facility] Carbon dioxide, total [Moles /volume] in Serum or PlasmaOrdered By: Keith Lugo on 12-27-2022 CO2 [Moles/Vol] 25.8 mmol/L 22.0-30.0 [facility] Chloride [Moles/volume] in S gale or PlasmaOrdered By: Keith Lugo on 12-27-2022 Chloride [Moles/Vol] 103 mmol/L 95-114 [facility] Color Auto (U)Ordered By: Hudson Lugo on 12-27-2022 Color (U) Yellow Yellow [facility] Creatinine and Glomerular fi ltration rate.predicted panel (S/P/Bld)Ordered By: Keith Lugo on 12-27-2022 Creatinine [Mass/Vol] 0.69 mg/dL 0.44-1.03 [facility] Eosinophils Auto (Bld) [#/Vo l]Ordered By: Keith Lugo on 12-27-2022 Eosinophils (Bld) [#/Vol] 0.1 10*3/uL 0.0-0.45 [facility] Eosinophils/100 WBC Auto (Bl d)Ordered By: Keith Lugo on 12-27-2022 Eosinophils/100 WBC (Bld) 0.9 % . [facility] Erythrocyte distribution wid th Auto (RBC) [Ratio]Ordered By: Keith Lugo on 12-27-2022 Erythrocyte distribution width (RBC) [Ratio] 20.8 % 11.9-15.3 [facility] Estimated glomerular filtrat ion rate (GFR) non- AmericanOrdered By: Keith Lugo on 12-27-2022 GFR/1.73 sq M.predicted among non-blacks MDRD (S/P/Bld) [Vol rate/Area] > 60 mL/Min [facility] Globulin Calc (S) [Mass/Vol] Ordered By: Keith Lugo on 12-27-2022 Globulin (S) [Mass/Vol] 2.8 g/dL [facility] Glucose [Mass/volume] in Ser um or PlasmaOrdered By: Keith Lugo on 12-27-2022 Glucose [Mass/Vol] 116 mg/dL 70-100 [facility] Comment on above: ADA recommended refe rence rangeRandom Glucose Reference Range is dependent on time and content of last meal. Glucose of more than 200 mg/dL in a nonstressed, ambulatory subject supports the diagnosis of Diabetes Mellitus. Hematocrit Auto (Bld) [Volum e fraction]Ordered By: Keith Lugo on 12-27-2022 Hematocrit (Bld) [Volume fraction] 40.6 % 34.0-46.4 [facility] Hemoglobin [Mass/volume] in BloodOrdered By: Keith Lugo on 12-27-2022 Hemoglobin (Bld) [Mass/Vol] 13.1 g/dL 11.8-15.4 [facility] Ketones Auto test strip (U) [Mass/Vol]Ordered By: Keith Lugo on 12-27-2022 Ketones (U) [Mass/Vol] Negative Negative [facility] Laboratory - Chemistry and C hemistry - challengeOrdered By: Keith Lugo on 12-27-2022 Lipase [Catalytic activity/Vol] 27.0 U/L 22-51 [facility] Leukocytes [#/volume] correc taurus for nucleated erythrocytes in Blood by Automated counOrdered By: Keith Lugo on 12-27-2022 WBC corrected for nucl RBC Auto (Bld) [#/Vol] 13.7 10*3/uL 3.8-11.6 [facility] Lymphocytes Auto (Bld) [#/Vo l]Ordered By: Keith Lugo on 12-27-2022 Lymphocytes (Bld) [#/Vol] 3.0 10*3/uL 1.00-4.8 [facility] Lymphocytes/100 WBC Auto (Bl d)Ordered By: Keith Lugo on 12-27-2022 Lymphocytes/100 WBC (Bld) 22.2 % . [facility] MCH Auto (RBC) [Entitic mass ]Ordered By: Keith Lugo on 12-27-2022 MCH (RBC) [Entitic mass] 24.8 pg 24.7-34.3 [facility] MCHC Auto (RBC) [Mass/Vol]Or dered By: Keith Lugo on 12-27-2022 MCHC (RBC) [Mass/Vol] 32.2 g/dL 32.0-35.0 [facility] MCV Auto (RBC) [Entitic vol] Ordered By: Keith Lugo on 12-27-2022 MCV (RBC) [Entitic vol] 77.1 fL 80-100 [facility] Monocyte distribution width [Entitic volume] in Blood by AutomatedOrdered By: Keith Lugo on 12-27-2022 Monocyte distribution width Auto (Bld) [Entitic vol] 17.58 % 0.00-20.00 [facility] Monocytes Auto (Bld) [#/Vol] Ordered By: eKith Lugo on 12-27-2022 Monocytes (Bld) [#/Vol] 0.6 10*3/uL 0.0-0.8 [facility] Monocytes/100 WBC Auto (Bld) Ordered By: Keith Lugo on 12-27-2022 Monocytes/100 WBC (Bld) 4.6 % . [facility] Neutrophils Auto (Bld) [#/Vo l]Ordered By: Keith Lugo on 12-27-2022 Neutrophils (Bld) [#/Vol] 9.8 10*3/uL 1.8-7.7 [facility] Neutrophils/100 WBC Auto (Bl d)Ordered By: Keith Lugo on 12-27-2022 Neutrophils/100 WBC (Bld) 71.5 % . [facility] Nitrite Test strip Ql (U)Ord ered By: Keith Lugo on 12-27-2022 Nitrite Ql (U) Negative Negative [facility] No Panel InformationOrdered By: Keith Lugo on 12-27-2022 D-Dimer Quantitative (PE/DVT) 385 ng/mL 0-243 [facility] Comment on above: The reference range [...] conditions. Estimated GFR () > 60 mL/Min [facility] Comment on above: GFR estimated refere nce range: According to KDOQI guidelines, <60 ml/min/1.73m2 is sufficient to diagnose a patient with chronic kidney disease. Pharmacy Creatinine Clearance (Chem 135.15 [facility] Nucleated erythrocytes [Pres ence] in Blood by Automated countOrdered By: Keith Lugo on 12-27-2022 Nucleated RBC Auto Ql (Bld) 0.1 /100{WBC} 0-0.5 [facility] Platelet mean volume Auto (B ld) [Entitic vol]Ordered By: Keith Lugo on 12-27-2022 Platelet mean volume (Bld) [Entitic vol] 9.2 fL 6.3-10.7 [facility] Platelets Auto (Bld) [#/Vol] Ordered By: Keith Lugo on 12-27-2022 Platelets (Bld) [#/Vol] 267 10*3/uL 150-450 [facility] Potassium [Moles/volume] in Serum or PlasmaOrdered By: Keith Lugo on 12-27-2022 Potassium [Moles/Vol] 3.6 mmol/L 3.5-5.1 [facility] Protein Auto test strip (U) [Mass/Vol]Ordered By: Keith Lugo on 12-27-2022 Protein (U) [Mass/Vol] Negative Negative [facility] Protein [Mass/volume] in Ser um or PlasmaOrdered By: Keith Lugo on 12-27-2022 Protein [Mass/Vol] 6.4 g/dL 6.1-7.9 [facility] RBC Auto (Bld) [#/Vol]Ordere d By: Keith Lugo on 12-27-2022 RBC (Bld) [#/Vol] 5.27 10*6/uL 3.60-5.00 [facility] Serum or plasma alanine matias otransferase measurement without P-5'-P (enzymatic activiOrdered By: Keith Lugo on 12-27-2022 ALT No additional P-5'-P [Catalytic activity/Vol] 16 U/L 10-60 [facility] Serum or plasma albumin/glob ulin mass ratioOrdered By: Keith Lugo on 12-27-2022 Albumin/Globulin [Mass ratio] 1.3 {ratio} [facility] Serum or plasma anion gap de terminationOrdered By: Keith Lugo on 12-27-2022 Anion gap [Moles/Vol] 12.8 mmol/L 6.0-15.0 [facility] Sodium [Moles/volume] in Ser um or PlasmaOrdered By: Keith Lugo on 12-27-2022 Sodium [Moles/Vol] 138 mmol/L 136-146 [facility] Specific gravity Auto test s trip (U) [Rel density]Ordered By: Keith Lugo on 12-27-2022 Specific gravity (U) [Rel density] 1.026 1.001-1.03 0 [facility] Troponin I.cardiac [Mass/vol ume] in Serum or Plasma by High sensitivity methodOrdered By: Keith Lugo on 12-27-2022 Troponin I.cardiac High sensitivity method [Mass/Vol] 4 pg/mL 0-15 [facility] Urea nitrogen [Mass/volume] in Serum or PlasmaOrdered By: Keith Lugo on 12-27-2022 Urea nitrogen [Mass/Vol] 11 mg/dL 9-23 [facility] Urine clarity by refractomet ry automatedOrdered By: Keith Lugo on 12-27-2022 Clarity Refractometry automated (U) Clear Clear [facility] Urine glucose measurement by automated test strip (mass/volume)Ordered By: Keith Lugo on 12-27-2022 Glucose Auto test strip (U) [Mass/Vol] Normal mg/dL Normal [facility] Urine hemoglobin detection b y automated test stripOrdered By: Keith Lugo on 12-27-2022 Hemoglobin Auto test strip Ql (U) Negative Negative [facility] Urine leukocyte esterase det ection by automated test stripOrdered By: Keith Lugo on 12-27-2022 Leukocyte esterase Auto test strip Ql (U) Negative Negative [facility] Urobilinogen Auto test strip (U) [Mass/Vol]Ordered By: Keith Lugo on 12-27-2022 Urobilinogen (U) [Mass/Vol] Normal mg/dL Normal [facility] WBC Auto (Bld) [#/Vol]Ordere d By: Keith Lugo on 12-27-2022 WBC (Bld) [#/Vol] 13.7 10*3/uL 3.8-11.6 [facility] pH Auto test strip (U)Ordere d By: Keith Lugo on 12-27-2022 pH (U) 5.5 [pH] 5.0-9.0 [facility] Basophils Auto (Bld) [#/Vol] Ordered By: Nasir Garcia on 12-05-2022 Basophils (Bld) [#/Vol] 0.2 10*3/uL 0.0-0.2 [facility] Basophils/100 WBC Auto (Bld) Ordered By: Nasir Garcia on 12-05-2022 Basophils/100 WBC (Bld) 1.1 % . [facility] Bilirubin Auto test strip Ql (U)Ordered By: Nasir Garcia on 12-05-2022 Bilirubin Ql (U) Negative Negative [facility] Body fluid albumin measureme nt (mass/volume)Ordered By: Nasir Garcia on 12-05-2022 Albumin (Body fld) [Mass/Vol] 3.7 g/dL 3.2-5.5 [facility] Creatinine and Glomerular fi ltration rate.predicted panel (S/P/Bld)Ordered By: Nasir Garcia on 12-05-2022 Creatinine [Mass/Vol] 0.70 mg/dL 0.44-1.03 [facility] Eosinophils Auto (Bld) [#/Vo l]Ordered By: Nasir Garcia on 12-05-2022 Eosinophils (Bld) [#/Vol] 0.2 10*3/uL 0.0-0.45 [facility] Eosinophils/100 WBC Auto (Bl d)Ordered By: Nasir Garcia on 12-05-2022 Eosinophils/100 WBC (Bld) 1.2 % . [facility] Erythrocyte distribution wid th Auto (RBC) [Ratio]Ordered By: Nasir Garcia on 12-05-2022 Erythrocyte distribution width (RBC) [Ratio] 22.5 % 11.9-15.3 [facility] Estimated glomerular filtrat ion rate (GFR) non- AmericanOrdered By: Nasir Garcia on 12-05-2022 GFR/1.73 sq M.predicted among non-blacks MDRD (S/P/Bld) [Vol rate/Area] > 60 mL/Min [facility] Globulin Calc (S) [Mass/Vol] Ordered By: Nasir Garcia on 12-05-2022 Globulin (S) [Mass/Vol] 3.0 g/dL [facility] HCG ( test) IA.rapi d Ql (U)Ordered By: Naisr Garcia on 12-05-2022 HCG ( test) Ql (U) Negative [facility] Hematocrit Auto (Bld) [Volum e fraction]Ordered By: Nasir Garcia on 12-05-2022 Hematocrit (Bld) [Volume fraction] 40.2 % 34.0-46.4 [facility] Hemoglobin [Mass/volume] in BloodOrdered By: Nasir Garcia on 12-05-2022 Hemoglobin (Bld) [Mass/Vol] 13.0 g/dL 11.8-15.4 [facility] Ketones Auto test strip (U) [Mass/Vol]Ordered By: Nasir Garcia on 12-05-2022 Ketones (U) [Mass/Vol] Negative Negative [facility] Laboratory - Chemistry and C hemistry - challengeOrdered By: Nasir Garcia on 12-05-2022 Lipase [Catalytic activity/Vol] 32.0 U/L 22-51 [facility] Leukocytes [#/volume] correc taurus for nucleated erythrocytes in Blood by Automated counOrdered By: Nasir Garcia on 12-05-2022 WBC corrected for nucl RBC Auto (Bld) [#/Vol] 13.9 10*3/uL 3.8-11.6 [facility] Lymphocytes Auto (Bld) [#/Vo l]Ordered By: Nasir Garcia on 12-05-2022 Lymphocytes (Bld) [#/Vol] 3.5 10*3/uL 1.00-4.8 [facility] Lymphocytes/100 WBC Auto (Bl d)Ordered By: Nasir Garcia on 12-05-2022 Lymphocytes/100 WBC (Bld) 25.0 % . [facility] MCH Auto (RBC) [Entitic mass ]Ordered By: Nasir Garcia on 12-05-2022 MCH (RBC) [Entitic mass] 24.2 pg 24.7-34.3 [facility] MCHC Auto (RBC) [Mass/Vol]Or dered By: Nsair Garcia on 12-05-2022 MCHC (RBC) [Mass/Vol] 32.4 g/dL 32.0-35.0 [facility] MCV Auto (RBC) [Entitic vol] Ordered By: Nasir Garcia on 12-05-2022 MCV (RBC) [Entitic vol] 74.8 fL 80-100 [facility] Monocyte distribution width [Entitic volume] in Blood by AutomatedOrdered By: Nasir Garcia on 12-05-2022 Monocyte distribution width Auto (Bld) [Entitic vol] 19.65 % 0.00-20.00 [facility] Monocytes Auto (Bld) [#/Vol] Ordered By: Nasir Garcia on 12-05-2022 Monocytes (Bld) [#/Vol] 0.8 10*3/uL 0.0-0.8 [facility] Monocytes/100 WBC Auto (Bld) Ordered By: Nasir Garcia on 12-05-2022 Monocytes/100 WBC (Bld) 5.4 % . [facility] Neutrophils Auto (Bld) [#/Vo l]Ordered By: Nasir Garcia on 12-05-2022 Neutrophils (Bld) [#/Vol] 9.3 10*3/uL 1.8-7.7 [facility] Neutrophils/100 WBC Auto (Bl d)Ordered By: Nasir Garcia on 12-05-2022 Neutrophils/100 WBC (Bld) 67.3 % . [facility] No Panel InformationOrdered By: Nasir Garcia on 12-05-2022 Estimated GFR () > 60 mL/Min [facility] Comment on above: GFR estimated refere nce range: According to KDOQI guidelines, <60 ml/min/1.73m2 is sufficient to diagnose a patient with chronic kidney disease. Pharmacy Creatinine Clearance (Chem 138.72 [facility] Nucleated erythrocytes [Pres ence] in Blood by Automated countOrdered By: Nasir Garcia on 12-05-2022 Nucleated RBC Auto Ql (Bld) 0.2 /100{WBC} 0-0.5 [facility] Platelet mean volume Auto (B ld) [Entitic vol]Ordered By: Nasir Garcia on 12-05-2022 Platelet mean volume (Bld) [Entitic vol] 9.7 fL 6.3-10.7 [facility] Platelets Auto (Bld) [#/Vol] Ordered By: Nasir Garcia on 12-05-2022 Platelets (Bld) [#/Vol] 283 10*3/uL 150-450 [facility] Protein Auto test strip (U) [Mass/Vol]Ordered By: Nasir Garcia on 12-05-2022 Protein (U) [Mass/Vol] Negative Negative [facility] Protein [Mass/volume] in Ser um or PlasmaOrdered By: Nasir Garcia on 12-05-2022 Protein [Mass/Vol] 6.7 g/dL 6.1-7.9 [facility] RBC Auto (Bld) [#/Vol]Ordere d By: Nasir Garcia on 12-05-2022 RBC (Bld) [#/Vol] 5.38 10*6/uL 3.60-5.00 [facility] Serum or plasma alanine matias otransferase measurement without P-5'-P (enzymatic activiOrdered By: Nasir Garcia on 12-05-2022 ALT No additional P-5'-P [Catalytic activity/Vol] 20 U/L 10-60 [facility] Serum or plasma albumin/glob ulin mass ratioOrdered By: Nasir Garcia on 12-05-2022 Albumin/Globulin [Mass ratio] 1.2 {ratio} [facility] Serum or plasma alkaline vishal sphatase measurement (enzymatic activity/volume)Ordered By: Nasir Garcia on 12-05-2022 ALP [Catalytic activity/Vol] 102 U/L 32-92 [facility] Serum or plasma anion gap de terminationOrdered By: Nasri Garcia on 12-05-2022 Anion gap [Moles/Vol] 13.8 mmol/L 6.0-15.0 [facility] Serum or plasma aspartate am inotransferase measurement (enzymatic activity/volume)Ordered By: Nasir Garcia on 12-05-2022 AST [Catalytic activity/Vol] 22 U/L 10-42 [facility] Serum or plasma calcium lauren urement (mass/volume)Ordered By: Nasir Garcia on 12-05-2022 Calcium [Mass/Vol] 8.9 mg/dL 8.2-10.2 [facility] Serum or plasma chloride rosaline surement (moles/volume)Ordered By: Nasir Garcia on 12-05-2022 Chloride [Moles/Vol] 102 mmol/L 95-114 [facility] Serum or plasma glucose lauren urement (mass/volume)Ordered By: Nasir Garcia on 12-05-2022 Glucose [Mass/Vol] 123 mg/dL 70-100 [facility] Comment on above: ADA recommended refe rence rangeRandom Glucose Reference Range is dependent on time and content of last meal. Glucose of more than 200 mg/dL in a nonstressed, ambulatory subject supports the diagnosis of Diabetes Mellitus. Serum or plasma potassium me asurement (moles/volume)Ordered By: Nasir Garcia on 12-05-2022 Potassium [Moles/Vol] 4.4 mmol/L 3.5-5.1 [facility] Serum or plasma sodium measu rement (moles/volume)Ordered By: Nasir Garcia on 12-05-2022 Sodium [Moles/Vol] 137 mmol/L 136-146 [facility] Serum or plasma total biliru bin measurement (mass/volume)Ordered By: Nasir Garcia on 12-05-2022 Bilirubin [Mass/Vol] 0.3 mg/dL 0.3-1.2 [facility] Serum or plasma total carbon dioxide measurement (moles/volume)Ordered By: Nasir Garcia on 12-05-2022 CO2 [Moles/Vol] 25.6 mmol/L 22.0-30.0 [facility] Serum or plasma urea nitroge n measurement (mass/volume)Ordered By: Nasir Garcia on 12-05-2022 Urea nitrogen [Mass/Vol] 17 mg/dL 9-23 [facility] Urine appearanceOrdered By: Nasir Garcia on 12-05-2022 Appearance (U) Clear Clear [facility] Urine colorOrdered By: Nasir Garcia on 12-05-2022 Color (U) Yellow Yellow [facility] Urine glucose measurement by automated test strip (mass/volume)Ordered By: Nasir Garcia on 12-05-2022 Glucose Auto test strip (U) [Mass/Vol] Normal mg/dL Normal [facility] Urine hemoglobin detection b y automated test stripOrdered By: Nasir Garcia on 12-05-2022 Hemoglobin Auto test strip Ql (U) Negative Negative [facility] Urine leukocyte esterase det ection by automated test stripOrdered By: Nasir Garcia on 12-05-2022 Leukocyte esterase Auto test strip Ql (U) Negative Negative [facility] Urine nitrite detection by a utomated test stripOrdered By: Nasir Garcia on 12-05-2022 Nitrite Auto test strip Ql (U) Negative Negative [facility] Urobilinogen Auto test strip (U) [Mass/Vol]Ordered By: Nasir Garcia on 12-05-2022 Urobilinogen (U) [Mass/Vol] Normal mg/dL Normal [facility] WBC Auto (Bld) [#/Vol]Ordere d By: Nasir Garcia on 12-05-2022 WBC (Bld) [#/Vol] 13.9 10*3/uL 3.8-11.6 [facility] pH Auto test strip (U)Ordere d By: Nasir Garcia on 12-05-2022 pH (U) 1.025 [pH] 1.001-1.03 0 [facility] pH (U) 6.5 [pH] 5.0-9.0 [facility] Anisocytosis LM Ql (Bld)Orde red By: Renato Kumar on 09-07-2022 Anisocytosis Ql (Bld) Marked [facility] Basophils Auto (Bld) [#/Vol] Ordered By: Renato Kumar on 09-07-2022 Basophils (Bld) [#/Vol] 0.2 10*3/uL 0.0-0.2 [facility] Basophils/100 WBC Auto (Bld) Ordered By: Renato Kumar on 09-07-2022 Basophils/100 WBC (Bld) 1.0 % . [facility] Creatine kinase [Enzymatic a ctivity/volume] in Serum or PlasmaOrdered By: Renato Kumar on 09-07-2022 CK [Catalytic activity/Vol] 72 U/L 22-269 [facility] Creatinine and Glomerular fi ltration rate.predicted panel (S/P/Bld)Ordered By: Renato Kumar on 09-07-2022 Creatinine [Mass/Vol] 0.52 mg/dL 0.44-1.03 [facility] Eosinophils Auto (Bld) [#/Vo l]Ordered By: Renato Kumar on 09-07-2022 Eosinophils (Bld) [#/Vol] 0.1 10*3/uL 0.0-0.45 [facility] Eosinophils/100 WBC Auto (Bl d)Ordered By: Renato Kumar on 09-07-2022 Eosinophils/100 WBC (Bld) 0.8 % . [facility] Erythrocyte distribution wid th Auto (RBC) [Ratio]Ordered By: Renato Kumar on 09-07-2022 Erythrocyte distribution width (RBC) [Ratio] 20.7 % 11.9-15.3 [facility] Estimated glomerular filtrat ion rate (GFR) non- AmericanOrdered By: Renato Kumar on 09-07-2022 GFR/1.73 sq M.predicted among non-blacks MDRD (S/P/Bld) [Vol rate/Area] > 60 mL/Min [facility] Hematocrit Auto (Bld) [Volum e fraction]Ordered By: Renato Kumar on 09-07-2022 Hematocrit (Bld) [Volume fraction] 37.8 % 34.0-46.4 [facility] Hemoglobin [Mass/volume] in BloodOrdered By: Renato Kumar on 09-07-2022 Hemoglobin (Bld) [Mass/Vol] 11.4 g/dL 11.8-15.4 [facility] Hypochromia LM Ql (Bld)Order ed By: Renato Kumar on 09-07-2022 Hypochromia Ql (Bld) Moderate [facility] Laboratory - Hematology and Cell countsOrdered By: Renato Kumar on 09-07-2022 Nucleated RBC/100 WBC (Bld) [Ratio] 0.0 % 0-0.5 [facility] Leukocytes [#/volume] in Blo od by Automated countOrdered By: Renato Kumar on 09-07-2022 WBC (Bld) [#/Vol] 15.2 10*3/uL 4.5-11.0 [facility] Lymphocytes Auto (Bld) [#/Vo l]Ordered By: Renato Kumar on 09-07-2022 Lymphocytes (Bld) [#/Vol] 3.2 10*3/uL 1.00-4.8 [facility] Lymphocytes/100 WBC Auto (Bl d)Ordered By: Renato Kumar on 09-07-2022 Lymphocytes/100 WBC (Bld) 20.8 % . [facility] MCH Auto (RBC) [Entitic mass ]Ordered By: Renato Kumar on 09-07-2022 MCH (RBC) [Entitic mass] 20.2 pg 24.7-34.3 [facility] MCHC Auto (RBC) [Mass/Vol]Or dered By: Renato Kumar on 09-07-2022 MCHC (RBC) [Mass/Vol] 30.1 g/dL 32.0-35.0 [facility] MCV Auto (RBC) [Entitic vol] Ordered By: Renato Kumar on 09-07-2022 MCV (RBC) [Entitic vol] 67.0 fL 80-100 [facility] Macrocytes LM Ql (Bld)Ordere d By: Renato Kumar on 09-07-2022 Macrocytes Ql (Bld) Slight [facility] Microcytes LM Ql (Bld)Ordere d By: Renato Kumar on 09-07-2022 Microcytes Ql (Bld) Moderate [facility] Monocytes Auto (Bld) [#/Vol] Ordered By: Renato Kumar on 09-07-2022 Monocytes (Bld) [#/Vol] 0.9 10*3/uL 0.0-0.8 [facility] Monocytes/100 WBC Auto (Bld) Ordered By: Renato Kumar on 09-07-2022 Monocytes/100 WBC (Bld) 5.9 % . [facility] Neutrophils Auto (Bld) [#/Vo l]Ordered By: Renato Kumar on 09-07-2022 Neutrophils (Bld) [#/Vol] 10.9 10*3/uL 1.8-7.7 [facility] Neutrophils/100 WBC Auto (Bl d)Ordered By: Renato Kumar on 09-07-2022 Neutrophils/100 WBC (Bld) 71.5 % . [facility] No Panel InformationOrdered By: Renato Kumar on 09-07-2022 Estimated GFR () > 60 mL/Min [facility] Comment on above: GFR estimated refere nce range: According to KDOQI guidelines, <60 ml/min/1.73m2 is sufficient to diagnose a patient with chronic kidney disease. Pharmacy Creatinine Clearance (Chem 182.66 [facility] Platelet adequacy [Presence] in Blood by Light microscopyOrdered By: Renato Kumar on 09-07-2022 Platelets LM Ql (Bld) Normal Normal [facility] Platelet mean volume Auto (B ld) [Entitic vol]Ordered By: Renato Kumar on 09-07-2022 Platelet mean volume (Bld) [Entitic vol] 9.1 fL 6.3-10.7 [facility] Platelet morphology finding [Identifier] in BloodOrdered By: Renato Kumar on 09-07-2022 Platelet morphology finding Nom (Bld) Normal Normal [facility] Platelets Auto (Bld) [#/Vol] Ordered By: Renato Kumar on 09-07-2022 Platelets (Bld) [#/Vol] 275 10*3/uL 150-450 [facility] RBC Auto (Bld) [#/Vol]Ordere d By: Renato Kumar on 09-07-2022 RBC (Bld) [#/Vol] 5.64 10*6/uL 3.60-5.00 [facility] RBC morphologyOrdered By: Rachael Kumar on 09-07-2022 RBC morphology finding Nom (Bld) N/A [facility] Red blood cell stomatocyte d etectionOrdered By: Renato Kumar on 09-07-2022 Stomatocytes LM Ql (Bld) Slight [facility] Serum or plasma anion gap de terminationOrdered By: Renato Kumar on 09-07-2022 Anion gap [Moles/Vol] 16.4 mmol/L 6.0-15.0 [facility] Serum or plasma calcium lauren urement (mass/volume)Ordered By: Renato Kumar on 09-07-2022 Calcium [Mass/Vol] 9.2 mg/dL 8.2-10.2 [facility] Serum or plasma chloride rosaline surement (moles/volume)Ordered By: Renato Kumar on 09-07-2022 Chloride [Moles/Vol] 103 mmol/L 95-114 [facility] Serum or plasma creatine kin ase MB (CKMB)/total creatine kinase (CK) ratio by calculaOrdered By: Renato Kumar on 09-07-2022 CK.MB Calc [Catalytic fraction] 1.5 % 0.00-2.50 [facility] Serum or plasma creatine kin ase MB measurement (mass/volume)Ordered By: Renato Kumar on 09-07-2022 CK.MB [Mass/Vol] 1.1 ng/mL 0.6-6.3 [facility] Serum or plasma glucose lauren urement (mass/volume)Ordered By: Renato Kumar on 09-07-2022 Glucose [Mass/Vol] 100 mg/dL 70-100 [facility] Comment on above: ADA recommended refe rence rangeRandom Glucose Reference Range is dependent on time and content of last meal. Glucose of more than 200 mg/dL in a nonstressed, ambulatory subject supports the diagnosis of Diabetes Mellitus. Serum or plasma potassium me asurement (moles/volume)Ordered By: Renato Kumar on 09-07-2022 Potassium [Moles/Vol] 4.0 mmol/L 3.5-5.1 [facility] Serum or plasma sodium measu rement (moles/volume)Ordered By: Renato Kumar on 09-07-2022 Sodium [Moles/Vol] 139 mmol/L 136-146 [facility] Serum or plasma total carbon dioxide measurement (moles/volume)Ordered By: Renato Kumar on 09-07-2022 CO2 [Moles/Vol] 23.6 mmol/L 22.0-30.0 [facility] Serum or plasma urea nitroge n measurement (mass/volume)Ordered By: Renato Kumar on 09-07-2022 Urea nitrogen [Mass/Vol] 14 mg/dL 9-23 [facility] Troponin I.cardiac [Mass/vol ume] in Serum or Plasma by High sensitivity methodOrdered By: Renato Kumar on 09-07-2022 Troponin I.cardiac High sensitivity method [Mass/Vol] 5 pg/mL 0-15 [facility] HCG ( test) IA.rapi d Ql (U)Ordered By: Piero Veronica on 07-09-2022 HCG ( test) Ql (U) Negative [facility] Basophils Auto (Bld) [#/Vol] Ordered By: Stephanie Babcock on 07-05-2022 Basophils (Bld) [#/Vol] 0.1 10*3/uL 0.0-0.2 [facility] Basophils/100 WBC Auto (Bld) Ordered By: Stephanie Babcock on 07-05-2022 Basophils/100 WBC (Bld) 0.5 % . [facility] Blood hemoglobin measurement (mass/volume)Ordered By: Stephanie Babcock on 07-05-2022 Hemoglobin (Bld) [Mass/Vol] 10.3 g/dL 11.8-15.4 [facility] Blood leukocytes automated c ount (number/volume)Ordered By: Stephanie Babcock on 07-05-2022 WBC (Bld) [#/Vol] 13.2 10*3/uL 4.5-11.0 [facility] Eosinophils Auto (Bld) [#/Vo l]Ordered By: Stephanie Babcock on 07-05-2022 Eosinophils (Bld) [#/Vol] 0.1 10*3/uL 0.0-0.45 [facility] Eosinophils/100 WBC Auto (Bl d)Ordered By: Stephanie Babcock on 07-05-2022 Eosinophils/100 WBC (Bld) 0.8 % . [facility] Erythrocyte distribution wid th Auto (RBC) [Ratio]Ordered By: Stephanie Babcock on 07-05-2022 Erythrocyte distribution width (RBC) [Ratio] 17.0 % 11.9-15.3 [facility] Hematocrit Auto (Bld) [Volum e fraction]Ordered By: Stephanie Babcock on 07-05-2022 Hematocrit (Bld) [Volume fraction] 33.6 % 34.0-46.4 [facility] Laboratory - Hematology and Cell countsOrdered By: Stephanie Babcock on 07-05-2022 Nucleated RBC/100 WBC (Bld) [Ratio] 0.0 % 0-0.5 [facility] Lymphocytes Auto (Bld) [#/Vo l]Ordered By: Stephanie Babcock on 07-05-2022 Lymphocytes (Bld) [#/Vol] 2.4 10*3/uL 1.00-4.8 [facility] Lymphocytes/100 WBC Auto (Bl d)Ordered By: Stephanie Babcock on 07-05-2022 Lymphocytes/100 WBC (Bld) 18.5 % . [facility] MCH Auto (RBC) [Entitic mass ]Ordered By: Stephanie Babcock on 07-05-2022 MCH (RBC) [Entitic mass] 21.8 pg 24.7-34.3 [facility] MCHC Auto (RBC) [Mass/Vol]Or dered By: Stephanie Babcock on 07-05-2022 MCHC (RBC) [Mass/Vol] 30.7 g/dL 32.0-35.0 [facility] MCV Auto (RBC) [Entitic vol] Ordered By: Stephanie Babcock on 07-05-2022 MCV (RBC) [Entitic vol] 71.1 fL 80-100 [facility] Monocytes Auto (Bld) [#/Vol] Ordered By: Stephanie Babcock on 07-05-2022 Monocytes (Bld) [#/Vol] 0.6 10*3/uL 0.0-0.8 [facility] Monocytes/100 WBC Auto (Bld) Ordered By: Stephanie Babcock on 07-05-2022 Monocytes/100 WBC (Bld) 4.4 % . [facility] Neutrophils Auto (Bld) [#/Vo l]Ordered By: Stephanie Babcock on 07-05-2022 Neutrophils (Bld) [#/Vol] 10.0 10*3/uL 1.8-7.7 [facility] Neutrophils/100 WBC Auto (Bl d)Ordered By: Stephanie Babcock on 07-05-2022 Neutrophils/100 WBC (Bld) 75.8 % . [facility] Platelet mean volume Auto (B ld) [Entitic vol]Ordered By: Stephanie Babcock on 07-05-2022 Platelet mean volume (Bld) [Entitic vol] 9.5 fL 6.3-10.7 [facility] Platelets Auto (Bld) [#/Vol] Ordered By: Stephanie Babcock on 07-05-2022 Platelets (Bld) [#/Vol] 367 10*3/uL 150-450 [facility] RBC Auto (Bld) [#/Vol]Ordere d By: Stephanie Babcock on 07-05-2022 RBC (Bld) [#/Vol] 4.72 10*6/uL 3.60-5.00 [facility] Automated erythrocytes count in urine sediment (number/area)Ordered By: Jesus Petersen on 06-04-2022 RBC Auto (Urine sed) [#/Area] Innumerable [HPF] 0-4 [facility] Automated leukocytes count i n urine sediment (number/area)Ordered By: Jesus Petersen on 06-04-2022 WBC Auto (Urine sed) [#/Area] 1-2 [HPF] 0-4 [facility] Basophils Auto (Bld) [#/Vol] Ordered By: Jesus Petersen on 06-04-2022 Basophils (Bld) [#/Vol] 0.1 10*3/uL 0.0-0.2 [facility] Basophils/100 WBC Auto (Bld) Ordered By: Jesus Petersen on 06-04-2022 Basophils/100 WBC (Bld) 0.5 % . [facility] Bilirubin Test strip Ql (U)O rdered By: Jesus Petersen on 06-04-2022 Bilirubin Ql (U) Negative Negative [facility] Blood hemoglobin measurement (mass/volume)Ordered By: Jesus Petersen on 06-04-2022 Hemoglobin (Bld) [Mass/Vol] 10.5 g/dL 11.8-15.4 [facility] Blood leukocytes automated c ount (number/volume)Ordered By: Jesus Petersen on 06-04-2022 WBC (Bld) [#/Vol] 14.2 10*3/uL 4.5-11.0 [facility] Color Auto (U)Ordered By: Wai Petersen on 06-04-2022 Color (U) Whitakers Yellow [facility] Eosinophils Auto (Bld) [#/Vo l]Ordered By: Jesus Petersen on 06-04-2022 Eosinophils (Bld) [#/Vol] 0.1 10*3/uL 0.0-0.45 [facility] Eosinophils/100 WBC Auto (Bl d)Ordered By: Jesus Petersen on 06-04-2022 Eosinophils/100 WBC (Bld) 0.9 % . [facility] Erythrocyte distribution wid th Auto (RBC) [Ratio]Ordered By: Jesus Petersen on 06-04-2022 Erythrocyte distribution width (RBC) [Ratio] 16.3 % 11.9-15.3 [facility] HCG ( test) IA.rapi d Ql (U)Ordered By: Jesus Petersen on 06-04-2022 HCG ( test) Ql (U) Negative [facility] Hematocrit Auto (Bld) [Volum e fraction]Ordered By: Jesus Petersen on 06-04-2022 Hematocrit (Bld) [Volume fraction] 33.3 % 34.0-46.4 [facility] Ketones Auto test strip (U) [Mass/Vol]Ordered By: eJsus Petersen on 06-04-2022 Ketones (U) [Mass/Vol] Negative Negative [facility] Laboratory - Hematology and Cell countsOrdered By: Jesus Petersen on 06-04-2022 Nucleated RBC/100 WBC (Bld) [Ratio] 0.0 % 0-0.5 [facility] Laboratory - UrinalysisOrder ed By: Jesus Petersen on 06-04-2022 Hyaline casts LM Ql (Urine sed) 0-8 [LPF] 0-8 [facility] Lymphocytes Auto (Bld) [#/Vo l]Ordered By: Jesus Petersen on 06-04-2022 Lymphocytes (Bld) [#/Vol] 3.1 10*3/uL 1.00-4.8 [facility] Lymphocytes/100 WBC Auto (Bl d)Ordered By: Jesus Petersen on 06-04-2022 Lymphocytes/100 WBC (Bld) 21.9 % . [facility] MCH Auto (RBC) [Entitic mass ]Ordered By: Jesus Petersen on 06-04-2022 MCH (RBC) [Entitic mass] 23.9 pg 24.7-34.3 [facility] MCHC Auto (RBC) [Mass/Vol]Or dered By: Jesus Petersen on 06-04-2022 MCHC (RBC) [Mass/Vol] 31.4 g/dL 32.0-35.0 [facility] MCV Auto (RBC) [Entitic vol] Ordered By: Jesus Petersen on 06-04-2022 MCV (RBC) [Entitic vol] 76.2 fL 80-100 [facility] Monocytes Auto (Bld) [#/Vol] Ordered By: Jesus Petersen on 06-04-2022 Monocytes (Bld) [#/Vol] 0.8 10*3/uL 0.0-0.8 [facility] Monocytes/100 WBC Auto (Bld) Ordered By: Jesus Petersen on 06-04-2022 Monocytes/100 WBC (Bld) 5.6 % . [facility] Neutrophils Auto (Bld) [#/Vo l]Ordered By: Jesus Petersen on 06-04-2022 Neutrophils (Bld) [#/Vol] 10.1 10*3/uL 1.8-7.7 [facility] Neutrophils/100 WBC Auto (Bl d)Ordered By: Jesus Petersen on 06-04-2022 Neutrophils/100 WBC (Bld) 71.1 % . [facility] Nitrite Test strip Ql (U)Ord ered By: Jesus Petersen on 06-04-2022 Nitrite Ql (U) Negative Negative [facility] Platelet mean volume Auto (B ld) [Entitic vol]Ordered By: Jesus Petersen on 06-04-2022 Platelet mean volume (Bld) [Entitic vol] 9.8 fL 6.3-10.7 [facility] Platelets Auto (Bld) [#/Vol] Ordered By: Jesus Petersen on 06-04-2022 Platelets (Bld) [#/Vol] 321 10*3/uL 150-450 [facility] Protein Auto test strip (U) [Mass/Vol]Ordered By: Jesus Petersen on 06-04-2022 Protein (U) [Mass/Vol] Negative Negative [facility] RBC Auto (Bld) [#/Vol]Ordere d By: Jesus Petersen on 06-04-2022 RBC (Bld) [#/Vol] 4.37 10*6/uL 3.60-5.00 [facility] Specific gravity Auto test s trip (U) [Rel density]Ordered By: Jesus Petersen on 06-04-2022 Specific gravity (U) [Rel density] 1.008 1.001-1.03 0 [facility] Squamous epithelial cells de tection in urine sediment by light microscopyOrdered By: Jesus Petersen on 06-04-2022 Epithelial cells.squamous LM Ql (Urine sed) 1-2 [HPF] 0-2 [facility] Urine bacteria detection by automated methodOrdered By: Jesus Petersen on 06-04-2022 Bacteria Auto Ql (U) None seen None Seen [facility] Urine clarity by refractomet ry automatedOrdered By: Jesus Petersen on 06-04-2022 Clarity Refractometry automated (U) Clear Clear [facility] Urine glucose measurement by automated test strip (mass/volume)Ordered By: Jesus Petersen on 06-04-2022 Glucose Auto test strip (U) [Mass/Vol] Normal mg/dL Normal [facility] Urine hemoglobin detection b y automated test stripOrdered By: Jesus Petersen on 06-04-2022 Hemoglobin Auto test strip Ql (U) 3+ Negative [facility] Urine leukocyte esterase det ection by automated test stripOrdered By: Jesus Petersen on 06-04-2022 Leukocyte esterase Auto test strip Ql (U) Negative Negative [facility] Urobilinogen Auto test strip (U) [Mass/Vol]Ordered By: Jesus Petersen on 06-04-2022 Urobilinogen (U) [Mass/Vol] Normal mg/dL Normal [facility] pH Auto test strip (U)Ordere d By: Jesus Petersen on 06-04-2022 pH (U) 6.0 [pH] 5.0-9.0 [facility] Basophils Auto (Bld) [#/Vol] Ordered By: Stephanie Babcock on 05-30-2022 Basophils (Bld) [#/Vol] 0.1 10*3/uL 0.0-0.2 [facility] Basophils/100 WBC Auto (Bld) Ordered By: Setphanie Babcock on 05-30-2022 Basophils/100 WBC (Bld) 0.8 % . [facility] Blood anisocytosis detection Ordered By: Stephanie Babcock on 05-30-2022 Anisocytosis Ql (Bld) Slight Fir [facility] Blood hemoglobin measurement (mass/volume)Ordered By: Stephanie Bbacock on 05-30-2022 Hemoglobin (Bld) [Mass/Vol] 10.5 g/dL 11.8-15.4 [facility] Blood leukocytes automated c ount (number/volume)Ordered By: Stephanie Babcock on 05-30-2022 WBC (Bld) [#/Vol] 8.1 10*3/uL 4.5-11.0 [facility] Blood polychromasia detectio n by light microscopyOrdered By: Stephanie Babcock on 05-30-2022 Polychromasia LM Ql (Bld) Slight [facility] COVID-19 Positive/NegativeOr dered By: Jah Almonte on 05-30-2022 SARS-CoV-2 (COVID-19) N gene JUDIT+probe Ql (Resp) Positive Negative [facility] Comment on above: Positive results yonathan l only be called to Providers for the following groups of patients: Pre-Surgical Testing, Emergency Room, and Inpatients. Results called at 1029 on 05/30/22 Testing for SARS-CoV-2 by RT-PCR This test was developed and its performance characteristics determined by [employer] ([employer]) and validated at the [facility]. This test has not been FDA [...] developed and its performance characteristics determined by [employer] ([employer]) and validated at the [facility]. This test has not been FDA [...] (COVID-19) Ag IA.rapid Ql (Resp) Positive Negative [facility] Comment on above: This is a duplicate Laura SARS Antigen (JESSICA) result to be used for statistical tracking purpose only. Eosinophils Auto (Bld) [#/Vo l]Ordered By: Stephanei Babcock on 05-30-2022 Eosinophils (Bld) [#/Vol] 0.1 10*3/uL 0.0-0.45 [facility] Eosinophils/100 WBC Auto (Bl d)Ordered By: Stephanie Babcock on 05-30-2022 Eosinophils/100 WBC (Bld) 1.5 % . [facility] Erythrocyte distribution wid th Auto (RBC) [Ratio]Ordered By: Stephanie Babcock on 05-30-2022 Erythrocyte distribution width (RBC) [Ratio] 16.1 % 11.9-15.3 [facility] Hematocrit Auto (Bld) [Volum e fraction]Ordered By: Stephanie Babcock on 05-30-2022 Hematocrit (Bld) [Volume fraction] 33.6 % 34.0-46.4 [facility] Hypochromia detectionOrdered By: Stephanei Babcock on 05-30-2022 Hypochromia Ql (Bld) Moderate [facility] Laboratory - Hematology and Cell countsOrdered By: Stephanie Babcock on 05-30-2022 Nucleated RBC/100 WBC (Bld) [Ratio] 0.0 % 0-0.5 [facility] Lymphocytes Auto (Bld) [#/Vo l]Ordered By: Stephanie Babcock on 05-30-2022 Lymphocytes (Bld) [#/Vol] 2.1 10*3/uL 1.00-4.8 [facility] Lymphocytes/100 WBC Auto (Bl d)Ordered By: Stephaine Babcock on 05-30-2022 Lymphocytes/100 WBC (Bld) 26.5 % . [facility] MCH Auto (RBC) [Entitic mass ]Ordered By: Stephanie Babcock on 05-30-2022 MCH (RBC) [Entitic mass] 24.0 pg 24.7-34.3 [facility] MCHC Auto (RBC) [Mass/Vol]Or dered By: Stephanie Babcock on 05-30-2022 MCHC (RBC) [Mass/Vol] 31.1 g/dL 32.0-35.0 [facility] MCV Auto (RBC) [Entitic vol] Ordered By: Stephanie Babcock on 05-30-2022 MCV (RBC) [Entitic vol] 77.0 fL 80-100 [facility] Monocytes Auto (Bld) [#/Vol] Ordered By: Stephanie Babcock on 05-30-2022 Monocytes (Bld) [#/Vol] 0.6 10*3/uL 0.0-0.8 [facility] Monocytes/100 WBC Auto (Bld) Ordered By: Stephanie Babcock on 05-30-2022 Monocytes/100 WBC (Bld) 7.2 % . [facility] Neutrophils Auto (Bld) [#/Vo l]Ordered By: Stephanie Babcock on 05-30-2022 Neutrophils (Bld) [#/Vol] 5.2 10*3/uL 1.8-7.7 [facility] Neutrophils/100 WBC Auto (Bl d)Ordered By: Stephanie Babcock on 05-30-2022 Neutrophils/100 WBC (Bld) 64.0 % . [facility] No Panel InformationOrdered By: Stephanie Babcock on 05-30-2022 Large Platelets Moderate [facility] Platelet Estimate Normal Normal [facility] Platelet Morphology Comment N/A [facility] No Panel InformationOrdered By: Jah Almonte on 05-30-2022 SARS Antigen (LFIA) [facility] Platelet mean volume Auto (B ld) [Entitic vol]Ordered By: Stephanie Babcock on 05-30-2022 Platelet mean volume (Bld) [Entitic vol] 9.6 fL 6.3-10.7 [facility] Platelets Auto (Bld) [#/Vol] Ordered By: Stephanie Babcock on 05-30-2022 Platelets (Bld) [#/Vol] 235 10*3/uL 150-450 [facility] RBC Auto (Bld) [#/Vol]Ordere d By: Stephanie Sadiq on 05-30-2022 RBC (Bld) [#/Vol] 4.36 10*6/uL 3.60-5.00 [facility] RBC morphologyOrdered By: Karin Babcock on 05-30-2022 RBC morphology finding Nom (Bld) N/A [facility] .Auto Diff 1on 05-29-2022 Auto Archuleta % 5 % Normal 1-12 [facility] Comment on above: Performed By: #### 1 [id number], [id number], 2198588, 6255074, [id number], 7535170, 9759859 #### [facility] (DEFAULT) [address] [place] [address] Baso Abs# 0.0 x10 Normal 0.0-0.2 [facility] Comment on above: Performed By: #### 1 [id number], [id number], 3969763, 8929595, [id number], 4608124, 1691266 #### [facility] (DEFAULT) [address] [place] [address] Basophils/100 WBC (Bld) 0.1 % Low 0.2-2.0 [facility] Comment on above: Performed By: #### 1 [id number], 13338253, 3790682, 1783686, [id number], 7311609, 1096634 #### [facility] (DEFAULT) [address] [place] [address] 12081 Eos Abs# 0.1 x10 Normal 0.0-0.4 [facility] Comment on above: Performed By: #### 1 [id number], [id number], 0651898, 3667452, [id number], 8048545, 1048738 #### [facility] (DEFAULT) [address] [place] [address] Eosinophils/100 WBC (Bld) 0.8 % Low 0.9-4.0 [facility] Comment on above: Performed By: #### 1 [id number], 04309379, 1940950, 8916479, 3095501009, 4957919, 2760042 #### [facility] (DEFAULT) [address] [place] [address] Lymph Abs# 1.6 x10 Normal 1.3-2.9 [facility] Comment on above: Performed By: #### 1 [id number], 94881828, 2516015, 2764931, 2250379017, 9364520, 9531087 #### [facility] (DEFAULT) [address] [place] [address] Lymphocytes/100 WBC (Bld) 15 % Normal 14-48 [facility] Comment on above: Performed By: #### 1 [id number], 93737463, 8107250, 5081415, 1875389251, 2979438, 1522816 #### [facility] (DEFAULT) [address] [place] [address] Archuleta Abs# 0.5 x10 Normal 0.0-0.8 [facility] Comment on above: Performed By: #### 1 [id number], 25388757, 8758273, 5006040, 7610280346, 1356482, 3968165 #### [facility] (DEFAULT) [address] [place] [address] Neut Abs# 8.5 x10 Normal 1.5-9.2 [facility] Comment on above: Performed By: #### 1 [id number], 05945862, 4648462, 7311689, 0242657112, 3954225, 9505509 #### [facility] (DEFAULT) [address] [place] [address] Neutrophils/100 WBC (Bld) 80 % Normal 44-88 [facility] Comment on above: Performed By: #### 1 [id number], 30906287, 5185753, 4933859, 0792003721, 9723753, 4523524 #### [facility] (DEFAULT) [address] [place] [address] CBC w/ Auto Diffon 08-02-202 2 Erythrocyte distribution width (RBC) [Ratio] 16.5 % High 11.5-15.0 [facility] Comment on above: Performed By: #### 1 [id number], 34747890, 7149593, 2794981, 3069484059, 3512904, 4984999 #### [facility] (DEFAULT) [address] [place] [address] Hematocrit (Bld) [Volume fraction] 36.0 % Normal 33.7-40.4 [facility] Comment on above: Performed By: #### 1 [id number], 20672748, 7376694, 8609809, 0352035267, 3740733, 0017980 #### [facility] (DEFAULT) [address] [place] [address] Hemoglobin (Bld) [Mass/Vol] 11.2 g/dL Low 11.3-15.9 [facility] Comment on above: Performed By: #### 1 [id number], 19551847, 6157759, 7115600, 6815473442, 6200669, 6134944 #### [facility] (DEFAULT) [address] [place] [address] Instr WBC 10.7 x10 Invalid Interpretation Code [facility] Comment on above: Performed By: #### 1 [id number], 51957403, 5505062, 4096558, 7528114623, 6597675, 0810848 #### [facility] (DEFAULT) [address] [place] [address] Man Diff? Auto Normal [facility] Comment on above: Performed By: #### 1 [id number], 59482657, 9163280, 2163834, 2029083449, 8266098, 7387490 #### [facility] (DEFAULT) [address] [place], [place] [address] MCH (RBC) [Entitic mass] 24 pg Normal 24-34 [facility] Comment on above: Performed By: #### 1 [id number], 99538530, 7806773, 3359356, 8807006161, 8845620, 9936763 #### [facility] (DEFAULT) [address] [place] [address] MCHC (RBC) [Mass/Vol] 31 g/dL Normal 26-37 [facility] Comment on above: Performed By: #### 1 [id number], 84812608, 4814271, 3040983, 1267860406, 8919374, 1037624 #### [facility] (DEFAULT) [address] [place] [address] MCV (RBC) [Entitic vol] 78 fL Low 81-100 [facility] Comment on above: Performed By: #### 1 [id number], 46238777, 4604262, 0842340, 0580362224, 8840894, 7535612 #### [facility] (DEFAULT) [address] [place] [address] Platelet 261 x10 Normal 138-427 [facility] Comment on above: Performed By: #### 1 [id number], 49321046, 1494225, 0287904, 2960423462, 8730862, 3570994 #### [facility] (DEFAULT) [address] [place] [address] Platelet mean volume (Bld) [Entitic vol] 11.9 fL High 6.3-10.2 [facility] Comment on above: Performed By: #### 1 [id number], 95439944, 5599057, 5477589, 2914118953, 7262341, 4044144 #### [facility] (DEFAULT) [address] [place] [address] RBC 4.62 x10 Normal 3.70-5.30 [facility] Comment on above: Performed By: #### 1 [id number], 31253281, 1995365, 1375391, 2715253889, 0486050, 2226366 #### [facility] (DEFAULT) [address] [place] [address] WBC 10.7 x10 High 3.5-10.5 [facility] Comment on above: Performed By: #### 1 [id number], 33795671, 5060084, 9455012, 9845413131, 1634947, 8719810 #### [facility] (DEFAULT) [address] [place] [address]285 CMP Standardon 05-29-2022 eGFR Non AA >60 Invalid Interpretation Code [facility] Comment on above: Performed By: #### 3 [id number], 90805007, [id number] #### [facility] (DEFAULT) [address] [place] [address] 96356 eGFR AA >60 Invalid Interpretation Code [facility] Comment on above: Result Comment: Pattern Keeper bhaskar Kidney disease could be indicated at eGFRs of less than 60 ml/min/1.73m2. Kidney Failure is indicated at less than 15 ml/min/1.73m2 Performed By: #### 3 [id number], 18931244, [id number] #### [facility] (DEFAULT) [address] [place] [address] 35735 Albumin [Mass/Vol] 4.0 g/dL Normal 3.5-5.0 [facility] Comment on above: Performed By: #### 3 [id number], 69705366, [id number] #### [facility] (DEFAULT) [address] [place] [address] 82636 Albumin/Globulin [Mass ratio] 1.4 {ratio} Normal 1.4-2.6 [facility] Comment on above: Performed By: #### 3 [id number], 77016413, [id number] #### [facility] (DEFAULT) [address] [place] [address] 39098 Alk Phos 91 IU/L Normal 32-91 [facility] Comment on above: Performed By: #### 3 [id number], 80521444, [id number] #### [facility] (DEFAULT) [address] [place] [address] 90047 ALT [Catalytic activity/Vol] 18.0 U/L Normal 14.0-54.0 [facility] Comment on above: Performed By: #### 3 [id number], 95469988, [id number] #### [facility] (DEFAULT) [address] [place] [address] 03903 Anion gap [Moles/Vol] 13.0 mmol/L Normal 5.0-19.0 [facility] Comment on above: Performed By: #### 3 [id number], 24980814, [id number] #### [facility] (DEFAULT) [address] [place] [address] 34957 AST [Catalytic activity/Vol] 22 U/L Normal 15-41 [facility] Comment on above: Performed By: #### 3 [id number], 41394688, [id number] #### [facility] (DEFAULT) [address] [place] [address] 49348 Bili Total 0.3 mg/dL Normal 0.3-1.2 [facility] Comment on above: Performed By: #### 3 [id number], 81702767, [id number] #### [facility] (DEFAULT) [address] [place] [address] 78665 Calcium [Mass/Vol] 8.8 mg/dL Low 8.9-10.3 [facility] Comment on above: Performed By: #### 3 [id number], 78032075, [id number] #### [facility] (DEFAULT) [address] [place] [address] 64268 Chloride [Moles/Vol] 103 mmol/L Normal 101-111 [facility] Comment on above: Performed By: #### 3 [id number], 74915189, [id number] #### [facility] (DEFAULT) [address] [place] [address] 87166 CO2 [Moles/Vol] 24 mmol/L Normal 21-32 [facility] Comment on above: Performed By: #### 3 [id number], 70480419, [id number] #### [facility] (DEFAULT) [address] [place] [address] 97193 Creatinine [Mass/Vol] 0.76 mg/dL Normal 0.60-1.30 [facility] Comment on above: Performed By: #### 3 [id number], 85781000, [id number] #### [facility] (DEFAULT) [address] [place] [address] 70299 Globulin (S) [Mass/Vol] 2.9 g/dL Normal 1.5-4.3 [facility] Comment on above: Performed By: #### 3 [id number], 58265214, [id number] #### [facility] (DEFAULT) [address] [place] [address] 16633 Glucose [Mass/Vol] 171.0 mg/dL High 74.0-118.0 [facility] Comment on above: Performed By: #### 3 [id number], 45916842, [id number] #### [facility] (DEFAULT) [address] [place] [address] 89630 Osmolality 279 mOsm/L Invalid Interpretation Code [facility] Comment on above: Performed By: #### 3 [id number], 87320446, [id number] #### [facility] (DEFAULT) [address] [place] [address] 32712 Potassium [Moles/Vol] 3.1 mmol/L Low 3.6-5.1 [facility] Comment on above: Performed By: #### 3 [id number], 20212654, [id number] #### [facility] (DEFAULT) [address] [place] [address] 96229 Protein [Mass/Vol] 6.9 g/dL Normal 6.5-8.1 [facility] Comment on above: Performed By: #### 3 [id number], 57587668, [id number] #### [facility] (DEFAULT) [address] [place] [address] 77616 Sodium [Moles/Vol] 137.0 mmol/L Normal 136.0-144 . 0 [facility] Comment on above: Performed By: #### 3 [id number], 05290547, [id number] #### [facility] (DEFAULT) [address] [place] [address] 97392 Urea nitrogen [Mass/Vol] 16 mg/dL Normal 8-26 [facility] Comment on above: Performed By: #### 3 [id number], 93074103, [id number] #### [facility] (DEFAULT) [address] [place] [address] 77836 Urea nitrogen/Creatinine [Mass ratio] 21.0 mg/mg High 4.6-16.2 [facility] Comment on above: Performed By: #### 3 [id number], 79753336, [id number] #### [facility] (DEFAULT) [address] [place] [address] ED Clinical Summaryon 2021 ED Clinical Summary [facility] - Emergency Department [address] [place] [address] ED Clinical Summary PERSON INFORMATION Name: NE KEITA Age: 36 Years Sex: FEMALE : 1985 MRN: Acct#: Visit Reason: VAGINAL BLEEDING Arrival: 05/29/2022 16:07:55 Discharge: 05/29/2022 19:00:00 LOS: 000 02:53 Check In: 05/29/2022 16:07:55 Checkout:05/29/2022 19:00:00 Address: [address] [place] [address] PCP: Provider, None PROVIDER INFORMATION Provider Role Assigned Unassigned Kaiden Mcduffie PA-C ED PA 05/29/2022 16:09:09 Yahaira Espana VISUAL MERCHANDISING ASSISTANT Nurse 05/29/2022 16:58:49 VITALS INFORMATION Vital Sign Triage Latest Temperature Tympanic Temperature Temporal Artery Pulse Rate 96 bpm 96 bpm O2 Sat 97 % 97 % Respiratory Rate 18 br/min 18 br/min Blood Pressure /71 mmHg /71 mmHg MEDICAL INFORMATION Medications Given: Allergy Information: [place]; Latex Allergy; penicillins; codeine PHYSICIAN DOCUMENTATION Patient: [...] scheduled to have a hysterectomy with her welding foreman Dr. Babcock at [facility] around the 13 of July. Patient states [...] abdominal pain. Patient states she lives in [place] but is here in town for a which she states [place] was [place] [employer]. States she was eating lunch when she [...] large clot about the size of a sioux. Patient states she continues to have bleeding and has soaked through 4 large pads in which she came into the emergency department for evaluation. Patient states that she has not contacted her welding foreman in regards to her visit today. She [...] Health Status Allergies: Allergic Reactions (Selected) Moderate [place]- No reactions were documented. Severity Not Documented [...] Abilify: PO, (more content not included)... [facility] ED Note - Physicianon 2021 ED Note [...] scheduled to have a hysterectomy with her welding foreman Dr. Babcock at [facility] around the 13 of July. Patient states [...] abdominal pain. Patient states she lives in [place] but is here in town for a which she states she was at the [place]. States she was eating lunch when she [...] large clot about the size of a sioux. Patient states she continues to have bleeding and has soaked through 4 large pads in which she came into the emergency department for evaluation. Patient states that she has not contacted her welding foreman in regards to her visit today. She [...] Health Status Allergies: Allergic Reactions (Selected) Moderate [place]- No reactions were documented. Severity Not Documented [...] history: Resolved Rib pain on right side ([id number]): Resolved.. Surgical history: Biopsy cervical cone cold knife on 04/10/2018 at 32 Years. Biopsy cervical cone cold knife on 01/09/2018 at 32 Years. Cervical biopsy ([id number]) on 12/10/2017 at 32 Years. 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 ECC Negative Colposcopy ([id number]) on 12/10/2017 at 32 Years. (more content not included)... [facility] ED Note-Nursingon 05-29-2022 ED Note-Nursing Pt. admitted to the ED via personal vehicle and walked back to room 6. Pt. complains of vaginal bleeding with sioux size clots. Pt. denies any pain or discomfort at this time. Pt. is alert and orientated x4. Pt. has a steady gait. Normal [facility] ED Patient Summaryon 022 ED Patient Summary [facility] - Emergency Department [address] [place] [id number] PATIENT DISCHARGE INSTRUCTIONS Patient Information Name: NE [...] alcohol and/or drug addiction problems; contact the [facility] 20/05 Crisis Hotline -Text 4HFLD wn [id number]. If you received any narcotics, sedation, or [...] Address: When: [address] [place], [place] [id number] Business (1) Within 3 to 5 days Comments: Please follow-up with your welding foreman in 3 to 5 days. Please contact [...] pain develop weakness you should go to [facility] emergency department, where your welding foreman is at and where you can be seen if needed. You may return here to the emergency department for any worsening or concerning symptoms. Medication Information: The exam and treatment you received today in the [facility] Emergency Department were for an urgent problem and are not intended as complete care. It is important for you to follow up with a doctor, nurse practitioner, or physician?s assistant buyer for ongoing care. If your symptoms become [...] so we can reach you if necessary. [facility] Emergency Department has provided you with a complete list of medications post discharge. Please inform your sole painter/provider of your visit and for further instruction on these medications. Any specific questions regarding your chronic medications and dosages should be discussed with your primary care physician(s) and/or pharmacist. New Medications [id number], [address] [place], [place] [id number], [phone] ethinyl estradiol-norethindrone (Loestrin 21 1.5/30 oral tablet) [...] day. ARIP (more content not included)... Normal [facility] Extra Redon 05-29-2022 Tube Collected Yes Invalid Interpretation Code [facility] Comment on above: Performed By: #### 1 [id number], [id number], [id number], [id number], [id number], 0855655, [id number] #### [facility] (DEFAULT) [address] [place] [address] 89123 Lactic Acidon 05-29-2022 Lactic Acid 15.2 mg/dL Normal 4.5-19.8 [facility] Comment on above: Performed By: #### 2 [id number] #### [facility] (DEFAULT) [address] [place] [address] 49334 Lipaseon 05-29-2022 Lipase Level 25.0 IU/L Normal 22.0-51.0 [facility] Comment on above: Performed By: #### 1 [id number], [id number], 7535899, 2732018, [id number], 3256771, 8620013 #### [facility] (DEFAULT) [address] [place] [address] 40583 PTon 05-29-2022 INR Coag (PPP) [Relative time] 0.96 {INR} Normal 0.91-1.11 [facility] Comment on above: Performed By: #### 1 [id number], [id number], 1948164, 4941644, [id number], 9860246, 5846398 #### [facility] (DEFAULT) [address] [place] [address] PT 10.4 second(s) Normal 9.7-11.8 [facility] Comment on above: Performed By: #### 1 [id number], 01303231, 3012731, 1456342, [id number], 2618559, 6379530 #### [facility] (DEFAULT) [address] [place] [address] 87899 PTTon 05-29-2022 PTT 26 second(s) Normal 25-35 [facility] Comment on above: Performed By: #### 1 [id number], 46050639, 5905987, 7604613, [id number], 3407506, 6327299 #### [facility] (DEFAULT) [address] [place] [address] Test Urine 1on U Preg Negative [facility] Comment on above: Performed By: #### 3 [id number], [id number], [id number] #### [facility] (DEFAULT) [address] [place] [address] U Preg Internal Control Pass [facility] Comment on above: Performed By: #### 3 [id number], [id number], [id number] #### [facility] (DEFAULT) [address] [place] [address] 69359 UA Qpske8kh 05-29-2022 UA Bacteria None [facility] Comment on above: Order Comment: Urina lysis Microscopic order added on by [employer] crowd[employer] Expert Rules system. Performed By: #### 3 [id number], 81187528, [id number] #### [facility] (DEFAULT) [address] [place] [address] 17757 UA RBC Gross Blood Normal [facility] Comment on above: Order Comment: Urina lysis Microscopic order added on by [employer] Expert Rules system. Performed By: #### 3 [id number], 25685555, [id number] #### [facility] (DEFAULT) [address] [place], [place] [address] UA WBC None Seen [facility] Comment on above: Order Comment: Urina lysis Microscopic order added on by [employer] Expert Rules system. Performed By: #### 3 [id number], [id number], [id number] #### [facility] (DEFAULT) [address] [place] [address] UA w Culture if Ind Standard on 05-29-2022 Breakpoint UA [facility] Comment on above: Performed By: #### 3 [id number], [id number], [id number] #### [facility] (DEFAULT) [address] [place] [address] Color (U) Red [facility] Comment on above: Result Comment: Test cannot be satisfactorily determined due to intensely colored urine. Performed By: #### 3 [id number], 71799936, [id number] #### [facility] (DEFAULT) [address] [place] [address] Culture? Not Indicated Invalid Interpretation Code [facility] Comment on above: Result Comment: Resu lt created by rule GL_MAGR_ADD_UA_CULT Performed By: #### 3 [id number], 96343213, [id number] #### [facility] (DEFAULT) [address] [place] [address] Glucose (U) [Mass/Vol] Negative [facility] Comment on above: Performed By: #### 3 [id number], 73015909, [id number] #### [facility] (DEFAULT) [address] [place] [address] Ketones Ql (U) Negative [facility] Comment on above: Performed By: #### 3 [id number], 92699493, [id number] #### [facility] (DEFAULT) [address] [place] [address] Micro? Not Indicated Invalid Interpretation Code [facility] Comment on above: Result Comment: Resu lt created by rule GL_MAGR_ADD_UA_MICRO Result created by rule GL_MAGR_ADD_UA_MICRO Performed By: #### 3 [id number], [id number], [id number] #### [facility] (DEFAULT) [address] [place] [address] 47382 UA Bilirubin SMALL Abnormal [facility] Comment on above: Performed By: #### 3 [id number], 81612258, [id number] #### [facility] (DEFAULT) [address] [place] [address] 85098 UA Blood LARGE Abnormal NEGATIVE [facility] Comment on above: Performed By: #### 3 [id number], 15127156, [id number] #### [facility] (DEFAULT) [address] [place] [address] 87564 UA Clarity TURBID Abnormal CLEAR [facility] Comment on above: Performed By: #### 3 [id number], 90929148, [id number] #### [facility] (DEFAULT) [address] [place] [address] UA Leuk Est Negative Normal NEGATIVE [facility] Comment on above: Performed By: #### 3 [id number], 25793773, [id number] #### [facility] (DEFAULT) [address] [place] [address] UA Nitrite Negative Normal NEGATIVE [facility] Comment on above: Performed By: #### 3 [id number], 48059415, [id number] #### [facility] (DEFAULT) [address] [place] [address] UA pH 6.0 Normal 5-8 [facility] Comment on above: Performed By: #### 3 [id number], 63468209, [id number] #### [facility] (DEFAULT) [address] [place] [address] UA Protein >=300 Abnormal NEGATIVE [facility] Comment on above: Performed By: #### 3 [id number], 45999643, [id number] #### [facility] (DEFAULT) [address] [place] [address] 54489 UA Spec Grav >=1.030 Normal 1.001-1.[address] [place] [address] Comment on above: Performed By: #### 3 [id number], 15652334, [id number] #### [facility] (DEFAULT) [address] [place] [address] 62831 UA Urobilinogen 1.0 mg/dL Normal 0.2-1.0 [facility] Comment on above: Performed By: #### 3 [id number], 68049802, [id number] #### [facility] (DEFAULT) [address] [place] [address] Urine Source Clean Catch Normal [facility] Comment on above: Performed By: #### 3 [id number], 68660956, [id number] #### [facility] (DEFAULT) [address] [place] [address] No Panel InformationOrdered By: Farhat Castro on 04-07-2022 SARS Antigen (LFIA) [facility] COVID-19 SOFIAOrdered By: Simone Castro on 04-06-2022 SARS-CoV+SARS-CoV-2 (COVID-19) Ag IA.rapid Ql (Resp) Negative Negative [facility] Comment on above: This is a duplicate Laura SARS Antigen (JESSICA) result to be used for statistical tracking purpose only. ANES Jeaneth 04-10-2018 ANES POST HNO ID: [id number] thor: Renato Cruz, IService: AnesthesiologyAuthor Type: AnesthesiologistType: [...] 10, 2018 : 8:51 AM PAGER/CONTACT #: [phone] [facility] ANES PREOPon 04-10-2018 ANES PREOP HNO ID: [id number] thor: Renato Cruz IService: AnesthesiologyAuthor Type: AnesthesiologistType: [...] mg injection (XYLOCAINE) 0.1-0.2 mLINTRADERMAL PRN Rafal ([employer]) Gargalianoslactated ringers infusion 5-30 mL/hr INTRAVENOUS CONTINUOUS Rafal ([employer])Gargalianos Last Rate: 30 mL/hr at 04/10/18 0707 [...] Renato Cruz MD PAT[facility] NAME[facility]: April 10, 2018 : 7:19 AM CSN: [id number] [facility] OPERATIVE NOon 04-10-2018 OPERATIVE NO HNO ID: [id number] thor: Mary Reyezervice: Gynecology OncologyAuthor Type: PhysicianType: Operative ReportFiled: 04/14/2018 8:59 AMNote Text:OPERATIVE/PROCEDURE REPORTLOG ID: [id number]/PROCEDURE DATE: 04/10/2018INCISION/PROCEDURE START TIME: 7:59 AMINCISION CLOSE/PROCEDURE END TIME: 8:14 AMSURGEON(S)/PROCEDURALIST( S) AND PHILOSOPHY SPECIALIST(S):Surgeon(s) and Role: * Mary Treadwell - Primary [...] was inserted into the vagina and a Talmoon wasused to achieve exposure to the cervix. [...] 10, 2018 : 10:44 AM PAGER/CONTACT #: [facility] PLAN OF CAREon 04-10-2018 PLAN OF CARE HNO ID: [id number] thor: Rehana Avila (CompassMD)Service: (none)Author Type: (none)Type: Plan of CareFiled: 04/10/2018 11:36 AMNote Text:PHARMACY BEDSIDE DELIVERY SERVICEPatient Name: Ne KeitaMRN: [id number] marked outpatient medications were Filled at: [place] and deliveredto the patient's bedside to picked [...] them or your Primary Care Provider.Rehana Avila (CompassMD)PAGER: [phone] 2017 11:36 AM [facility] PLAN OF CARE HNO ID: [id number] thor: Rehana Avila (CompassMD)Service: (none)Author Type: (none)Type: Plan of CareFiled: 04/10/2018 9:20 AMNote Text:Pharmacy Discharge Medication Service:This patient has elected to [facility] their discharge prescriptions throughthe [facility]. Theprescriptions are currently being processed. A follow-up note will beentered once the prescriptions have been filled and delivered to thepatient. Please contact me with any questions or updates to the patient'sdischarge medications.Rehana Avila (CompassMD)DCT Contact Info: [phone] [facility] PLAN OF CARE HNO ID: [id number] thor: Rehana Avila (CompassMD)Service: (none)Author Type: (none)Type: Plan of CareFiled: 04/10/2018 9:20 AMNote Text:AUDIT MGR BEDSIDE DELIVERY SURVEY1. Patient to use [facility] Bedside Delivery - YES2. If fax, patient would like us to fax prescriptions to [facility] a. Pharmacy: b. Location: c. Phone:3. Insurance card on file - YES4. Credit card for payment - N/ANo prescriptions yet. Please page [phone] upon discharge. Normal [facility] SURGICAL PATHOLOGYon 018 SURGICAL PATHOLOGY [facility]: [id number] Physician: MARY TREADWELL MD FINAL DIAGNOSIS1. Endocervical curettings (A) - Fragments of benign endocervical tissue.2. Cervix, cone biopsy (B) - Negative for dysplasia. - See comment. COMMENTB. An immunohistochemical stain, with appropriately staining controls, forp16 performed on block B6 was negative.Laboratory Developed Test (LDT) Disclaimer:Positive and negative controls stain appropriately. Performancecharacteristics of immunohistochemical, immunofluorescent and chromogenicin-situ hybridization tests have been determined by [facility] Pathology and Laboratory Medicine [place] ([facility]) alireza manner consistent with CLIA requirements. One or more of these tests havenot been cleared or approved by the FDA. [facility] is regulated under CLIA asqualified to [...] o'clock incorresponding cassettes. WE/justin/04/10/18Gross examination performed at [facility], [address] [place] [address] of Report: 04/15/2018Date of Procedure: 04/10/2018Date of Receipt: 04/10/2018Submitted by: MARY TREADWELL MDLocation: FVORDiagnostic interpretation performed at [facility], [address] [place] [address]. Normal [facility] Comment on above: Performed By: #### P ATHS ####[place] [address] NURSING PROGon 04-09-2018 NURSING PROG HNO ID: [id number] thor: Yani (Rn) CortesSer: (none)Author Type: Registered NurseType: Nursing Progress NoteFiled: 04/09/2018 10:02 AMNote Text:PACC Nurse Progress NoteHistory AND Physical:PACC Visit Date: 7-7-61Lsiqtmyk HANDP Date: N/AED visit Date: N/AOutside HANDP Scanned Date: N/ALabs Within Last 6 Months:CBC: Date 04-01-18BMP/CMP: Date 04-01-18 WNLResults reviewed and acceptable per anesthesia guidelines for upcomingsurgeryImaging Within Last 12 Months:N/ACardiac Testing:EKG in last 12 Months: Yes: Date: 01-02-18, Comment: Confirmed SRLast Menstrual Period:LMP Date: 6-19-38Kgidqclwiehuzu >1yr: No,S/P Hysterectomy: N/ABMI Percentile (PEDS):N/ARisk Assessment:N/AAnesthesia Review:N/ANarrative:Per PACC HANDP 04-01-18:BMI 44Pre-op Considerations:Significant Anesthesia Considerations: No history of adverse event withanesthesia. Pt. has history scoliosis s/p surgery with Zuniga rodplacement in 1997; she sustained a (right) pneumothorax reported due tothe re-alignment of her spine an anticipated risk. Pt. denies any othercomplications with prior surgeries.Chart Check:Jorge L Rolle RNJune 2017 9:50 AM [facility] C[facility]N Telephone (GYNML) ------NE KEITA ([id number]) 1985 FDate Time Provider Department04/02/18 ROXY BRANTLEY (RN) GYNML During your visit today, we recorded the following information about you:Roxy Brantley, RN, RN 04/02/2018 9:17 AM SignedCalled patient and LVM to call back for pre-op teachingRoxy Brantley RN, RN 04/04/2018 3:58 PM SignedProcedure: COLD KNIFE CONIZATION OF UTERINE CERVIXPhysician: Dr. Thomasion: [facility]: [phone] AND Time: 04/10/2018 and TIME will be [...] Celebrex MotrinAggrenox Clinoril Naprosyn(naproxen)Agrylin NSAIDS Pepto-BismolAleve Ecotrin PersantineAlka-King Excedrin PlaquenilAnacin Heparin PlavixAscriptin Herbals PletalAspergum Ibuprofen [...] - IV pain medication after surgery, IV INSTRUMENT REPAIR TECHNICIAN if ordered by MD,discharged home with a prescription for PO pain medication, pain managementafter surgery, side effects of pain medication (including constipation,dizziness, drowsiness, and medication interactions).DVT PROPHYLAXIS - Early ambulation, SCDs, injectable anticoagulants (heparin,lovenox, etc)RESPIRATORY - Incentive spirometer, coughing/deep breathing exercises,ambulation.RETURN TO WORK - As directed by physician, please send any [facility] papers [facility]'s board of education secretary.SYMPTOMS TO NOTIFY MD - Fever, chills, nausea, vomiting, increased or severepain, heavy vaginal bleeding, foul smelling vaginal drainage, pain or swellingin extremities.URGENT SYMPTOMS - Call 911 or go to ER if any shortness of breath, difficultybreathing, or chest pain.HOW TO CONTACT PHYSICIAN - Physician's office phone number given to patient, ifafter hours patient instructed to call operator receptionist and ask for the doctor family consultant.Patient and family have phone number to call 24 hours/day.Patient Evaluation: Verbalizes understandingPatient and/or family express understanding of upcoming surgery and theoperative process. Questions answered.Follow Up Plan: Follow up as directed by MD.Supplemental Material Given:Pre-operative teaching packet provided to the patient:INPATIENT/OUTPATIEN T printed instructions; Post-operative instruction sheet,bowel prep instruction sheetFor questions contact: office at [phone] By Daiana Brar As of Date: 04/02/2018(No [...] medical treatment*INVALID FOR* Myalgia and myositis, unspecified [[id number]] INVALID FOR* LUCAS III (cervical intraepithelial neoplasia gra*INVALID FOR* More... 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 Diazcation: [facility]: [phone] AND Time: 04/10/2018 and TIME will be [...] Celebrex MotrinAggrenox Clinoril Naprosyn(naproxen)Agrylin NSAIDS Pepto-BismolAleve Ecotrin PersantineAlka-King Excedrin PlaquenilAnacin Heparin PlavixAscriptin Herbals PletalAspergum Ibuprofen [...] - IV pain medication after surgery, IV INSTRUMENT REPAIR TECHNICIAN if ordered by MD,discharged home with a prescription for PO pain medication, pain managementafter surgery, side effects of pain medication (including constipation,dizziness, drowsiness, and medication interactions).DVT PROPHYLAXIS - Early ambulation, SCDs, injectable anticoagulants (heparin,lovenox, etc)RESPIRATORY - Incentive spirometer, coughing/deep breathing exercises,ambulation.RETURN TO WORK - As directed by physician, please send any [place] papers [facility]'s board of education secretary.SYMPTOMS TO NOTIFY MD - Fever, chills, nausea, vomiting, increased or severepain, heavy vaginal bleeding, foul smelling vaginal drainage, pain or swellingin extremities.URGENT SYMPTOMS - Call 911 or go to ER if any shortness of breath, difficultybreathing, or chest pain.HOW TO CONTACT PHYSICIAN - Physician's office phone number given to patient, ifafter hours patient instructed to call operator receptionist and ask for the doctor family consultant.Patient and family have phone number to call 24 hours/day.Patient Evaluation: Verbalizes understandingPatient and/or family express understanding of upcoming surgery and theoperative process. Questions answered.Follow Up Plan: Follow up as directed by MD.Supplemental Material Given:Pre-operative teaching packet provided to the patient:INPATIENT/OUTPATIEN T printed instructions; Post-operative instruction sheet,bowel prep instruction sheetFor questions contact: office at [phone] By Roxy Brantley RN [facility] Telephone (FVPRAD) -------NE KEITA ([id number]) 1985 FDate Time Provider Department01/18/18 JILL FRAIRE [...] ER x 3 hours.She was seen at [facility] ED. She had labwork but was not told anything abouther lab results. She was discharged to home. Reviewed bleeding precautions withher again, she agreeds to re-present to nearest ER if bleeding is severe.Jill Fraire MDGynecologic Oncology FellowF Nhvjjfgid Mayhugh, RN, RN 01/20/2018 1:27 PM SignedSpoke [...] medical treatment*INVALID FOR* Myalgia and myositis, unspecified [[id number]] INVALID FOR* LUCAS III (cervical intraepithelial neoplasia gra*INVALID FOR* More... Morbid obesity (HCC) [E66.01] INVALID FOR* Tobacco abuse [Z72.0] INVALID FOR* Status:Closed by JILL FRAIRE MD on 01/18/18 [facility] ANES Jeaneth 01-09-2018 ANES POST HNO ID: [id number] thor: Matthew Burrellervice: AnesthesiologyAuthor Type: AnesthesiologistType: Anesthesia [...] 09, 2018 : 1:08 PM PAGER/CONTACT #: [phone] [facility] ANES PREOPon 01-09-2018 ANES PREOP HNO ID: [id number] thor: Matthew Landaverde VeberService: AnesthesiologyAuthor Type: AnesthesiologistType: Anesthesia PreOpFiled: 01/09/2018 10:37 AMNote Text:REGIONAL ANESTHESIOLOGY DAY OF SURGERY NOTEPATIENT NAME: Ne KeitaMRN: [id number]: 1985Procedure(s) (LRB):BIOPSY CERVICAL CONE COLD KNIFE (N/A)ENDOCERVICAL [...] 09, 2018 : 10:36 AM PAGER/CONTACT #: [facility] BRIEF OP NOTon 01-09-2018 BRIEF OP NOT HNO ID: [id number] thor: Demetrio Brookeervice: Gynecology OncologyAuthor Type: PhysicianType: Brief Op NoteFiled: 01/09/2018 12:11 PMNote Text:BRIEF OP NOTELOG ID: [id number]/Procedure Date: 01/09/2018Incision/Procedure Start Time: 11:42 AMIncision Close/Procedure End Time: 12:08 PMSurgeon(s)/Proceduralist( s) and Usability Strategist(s):Surgeon(s) and Role: * Mary Treadwell - Primary [...] 09, 2018 : 12:10 PM PAGER/CONTACT #: [phone] [facility] NURSING PROGon 01-09-2018 NURSING PROG HNO ID: [id number] thor: Ammy ReyesRn) Luigi, RNService: NursingAuthor Type: [...] MATERIAL PROVIDED TO PATIENT: Post op dischargeinstructions. [facility] OPERATIVE NOon 01-09-2018 OPERATIVE NO HNO ID: [id number] thor: Mary Reyezervice: Gynecology OncologyAuthor Type: PhysicianType: Operative ReportFiled: 01/09/2018 6:59 PMNote Text:OPERATIVE/PROCEDURE REPORTLOG ID: [id number]/Procedure Date: 01/09/2018Incision/Procedure Start Time: 11:42 AMIncision Close/Procedure End Time: 12:08 PMSurgeon(s)/Proceduralist( s) and Usability Strategist(s):Surgeon(s) and Role: * Mary Treadwell - Primary [...] 09, 2018 : 6:58 PM PAGER/CONTACT #: [facility] PLAN OF CAREon 01-09-2018 PLAN OF CARE HNO ID: [id number] thor: Alla Robles (Medical Claims Specialist)Service: (none)Author Type: TechnicianType: Plan of CareFiled: 01/13/2018 9:36 AMNote Text:AUDIT MGR BEDSIDE DELIVERY SURVEY1. Patient to use [facility] Bedside Delivery - YES2. If fax, patient would like us to fax prescriptions to [facility]. Pharmacy: b. Location: c. Phone:3. Insurance card on file - YES4. Credit card for payment - N/A [facility] SURGICAL PATHOLOGYon 018 SURGICAL PATHOLOGY [facility]: [id number] Physician: MARY TREADWELL MD FINAL DIAGNOSIS1. Cervix, cone biopsy (A) - High grade squamous intraepithelial lesion(LUCAS 3) with involvement of endocervical glands.- High grade squamous intraepithelial lesion focally extends to the inkedmargin of excision near the 7 o'clock position.2. Endocervical curettings (B) - Minute fragments of benign endocervicaltissue.[employer] 01/13/2018 Elvia Arce M.D.(Electronic Signature) SPEC IMEN [...] in one cassette.WE/justin/01/09/18Gros s examination performed at [facility], [address] [place] [address] of Report: 01/15/2018Date of Procedure: 01/09/2018Date of Receipt: 01/09/2018Submitted by: MARY TREADWELL MDLocation: SORCDiagnostic interpretation performed at [facility], [address] [place] [address]. [facility] Comment on above: Performed By: #### P ATHS ####[place] [address] NURSING PROGo 01-06-2018 NURSING PROG HNO ID: [id number] thor: Aura (Rn) Ada, RNService: (none)Author Type: Registered NurseType: Nursing Progress NoteFiled: 01/06/2018 1:16 PMNote Text:01/06/18 1:00p.m. Notified Dr. Treadwell's office of WBC-14.07. Labs wereordered by her. MATIAS Coyne [facility] NURSING PROGon 01-02-2018 NURSING PROG HNO ID: [id number] thor: Madison ReyesRn) Chantel RNService: (none)Author Type: [...] confirmed EKSundarry MATIAS GoldenJackie 2017 3:34 PM [facility] HOSPon 12-30-2017 HOSP Patient:Leonard Keitaa DMRN: [...] with medical treatment [Z91.19]Myalgia and myositis, unspecified [[id number]]LUCAS III (cervical intraepithelial neoplasia grade III) with severe dysplasia[D06.9]Morbid obesity (HCC) [E66.01]Tobacco abuse [Z72.0]Allergies:No Known AllergiesDate Verified:01/09/18Lab ValuesLab Value Units Date High LowPOTA* 4.0 mmol/L 01/02/2018 5.1 3.7HEMA* 46.5 % 01/02/2018 46.0 36.0Progress Notes (FV PROVIDER ADULT):Rafal Lowe CNP 01/06/2018 2:21 PM Signed[facility] 14KScheduled for surgery this week w call and find out if patient having any abnormal sx/signs of infection?ThanksAntoinette Cha, RN, RN 01/06/2018 3:42 PM SignedCalled pt and she states she feels fineSays she had no fever at PATDenies cough, runny nose, congestion.Denies any s/sx of urinary infectionSays she feels great, just nervous about surgeryProgress Notes (CHILDCARE ATTENDANT [facility]):Antoinette Cha, RN, RN 01/03/2018 1:21 PM SignedPre-op teachingProcedure: Beau rosenthal, eccPhysician: Dr. Diazcation: [facility]: [phone] AND Time: 01/09/18MEDICAL CLEARANCE: No CARDIAC CLEARANCE: [...] Celebrex MotrinAggrenox Clinoril Naprosyn(naproxen)Agrylin NSAIDS Pepto-BismolAleve Ecotrin PersantineAlka-King Excedrin PlaquenilAnacin Heparin PlavixAscriptin Herbals PletalAspergum Ibuprofen [...] - IV pain medication after surgery, IV INSTRUMENT REPAIR TECHNICIAN if ordered by MD,discharged home with a prescription for PO pain medication, pain managementafter surgery, side effects of pain medication (including constipation,dizziness, drowsiness, and medication interactions).DVT PROPHYLAXIS - Early ambulation, SCDs, injectable anticoagulants (heparin,lovenox, etc)RESPIRATORY - Incentive spirometer, coughing/deep breathing exercises,ambulation.RETURN TO WORK - As directed by physician, please send any [facility] papers [facility] [employer] [facility] education secretary.SYMPTOMS TO NOTIFY MD - Fever, chills, nausea, vomiting, increased or severepain, heavy vaginal bleeding, foul smelling vaginal drainage, pain or swellingin extremities.URGENT SYMPTOMS - Call 911 or go to ER if any shortness of breath, difficultybreathing, or chest pain.HOW TO CONTACT PHYSICIAN - Physician's office phone number given to patient, ifafter hours patient instructed to call operator receptionist and ask for the doctor family consultant.Patient and family have phone number to call 24 hours/day.Patient Evaluation: Verbalizes understandingPatient and/or family express understanding of upcoming surgery and theoperative process. Questions answered.Follow Up Plan: Follow up as neededSupplemental Material Given:Pre-operative teaching packet provided to the patient:INPATIENT/OUTPATIEN T printed instructions; Post-operative instruction sheet,bowel prep instruction sheetFor questions contact: office at [phone] By Antoinette Cha RN [facility] HOSP Patient Update (FVPRAD) -------NE KEITA ( ) 1985 [facility] Time Provider Department12/30/17 RAFAL LOWE ([employer] During your visit today, we recorded the following information about you:Allergies As of Date: 12/30/2017(No Known Allergies)Date Reviewed: 12/29/2017Reviewed by: Mary Treadwell - Fully AssessedOrder(s):SURGICAL REQUEST - ELECTIVE [[id number]] Order #: [id number]: 1Prescriptions as of 12/30/2017 Sig: FLUOXETINE 40 [...] medical treatment*INVALID FOR* Myalgia and myositis, unspecified [[id number]] INVALID FOR* Status:Closed by RAFAL LOWE CNP on 12/30/17 [facility] Vital Signs Date Time Vital Sign Value Performing Clinician Facility 04-26-2025 21:30-0400 Diastolic blood pressure 63 mm[Hg] Enrique Fischer MD Work Phone: [facility] 04-26-2025 21:30-0400 Heart rate 76 /min Enrique Fischer MD Work Phone: [facility] 04-26-2025 21:30-0400 Respiratory rate 16 /min Enrique Fischer MD Work Phone: [facility] 04-26-2025 21:30-0400 SaO2% (BldA) [Mass fraction] 96 % Enrique Fischer MD Work Phone: [facility] 04-26-2025 21:30-0400 Systolic blood pressure 142 mm[Hg] Enrique Fischer MD Work Phone: [facility] 04-26-2025 19:42-0400 Body temperature 97.9 [degF] Enrique Fischer MD Work Phone: [facility] 04-24-2025 11:57-0400 Body temperature 96.49 [degF] Yanni NICHOLS Work Phone: [facility] 04-24-2025 11:57-0400 Diastolic blood pressure 84 mm[Hg] Yanni Nickersonmer PA Work Phone: [facility] 04-24-2025 11:57-0400 Heart rate 70 /min Yanni Nickersonmer PA Work Phone: [facility] 04-24-2025 11:57-0400 SaO2% (BldA) [Mass fraction] 97 % Yanni Nickersonmer PA Work Phone: [facility] 04-24-2025 11:57-0400 Systolic blood pressure 130 mm[Hg] Yanni Nickersonmer PA Work Phone: [facility] 03-09-2025 00:48-0400 Diastolic blood pressure 89 mm[Hg] [facility] Work Phone: [facility] 03-09-2025 00:48-0400 Heart rate 90 /min [facility] Work Phone: [facility] 03-09-2025 00:48-0400 Respiratory rate 20 /min [facility] Work Phone: [facility] 03-09-2025 00:48-0400 SaO2% (BldA) [Mass fraction] 98 % [facility] Work Phone: [facility] 03-09-2025 00:48-0400 Systolic blood pressure 142 mm[Hg] [facility] Work Phone: [facility] 03-08-2025 22:47-0400 Body height 160.02 cm [facility] Work Phone: [facility] 03-08-2025 22:47-0400 Body temperature 98.4 [degF] [facility] Work Phone: [facility] 03-08-2025 22:47-0400 Body weight 132.2 kg [facility] Work Phone: [facility] 12-21-2024 12:58-0500 Body mass index (BMI) [Ratio] 52.43 kg/m2 Stephanie Cruzi DO Work Phone: [facility] 12-21-2024 12:58-0500 Body weight 134.26 kg Stephanie Visci DO Work Phone: [facility] 12-21-2024 12:58-0500 Diastolic blood pressure 82 mm[Hg] Stephanie Visci DO Work Phone: [facility] 12-21-2024 12:58-0500 Systolic blood pressure 138 mm[Hg] Stephanie Visci DO Work Phone: [facility] 03-31-2024 03:20-0400 Diastolic blood pressure 65 mm[Hg] [facility] Work Phone: [facility] 03-31-2024 03:20-0400 Heart rate 62 /min [facility] Work Phone: [facility] 03-31-2024 03:20-0400 Respiratory rate 20 /min [facility] Work Phone: [facility] 03-31-2024 03:20-0400 SaO2% (BldA) [Mass fraction] 96 % [facility] Work Phone: [facility] 03-31-2024 03:20-0400 Systolic blood pressure 138 mm[Hg] [facility] Work Phone: [facility] 03-30-2024 23:43-0400 Body height 160.02 cm [facility] Work Phone: [facility] 03-30-2024 23:43-0400 Body temperature 97.9 [degF] [facility] Work Phone: [facility] 03-30-2024 23:43-0400 Body weight 133.6 kg [facility] Work Phone: [facility] 02-22-2024 21:57-0400 Body height 160.02 cm [facility] Work Phone: [facility] 02-22-2024 21:57-0400 Body temperature 98.7 [degF] [facility] Work Phone: [facility] 02-22-2024 21:57-0400 Body weight 132.6 kg [facility] Work Phone: [facility] 02-22-2024 21:57-0400 Diastolic blood pressure 93 mm[Hg] [facility] Work Phone: [facility] 02-22-2024 21:57-0400 Heart rate 82 /min [facility] Work Phone: [facility] 02-22-2024 21:57-0400 Respiratory rate 18 /min [facility] Work Phone: [facility] 02-22-2024 21:57-0400 SaO2% (BldA) [Mass fraction] 97 % [facility] Work Phone: [facility] 02-22-2024 21:57-0400 Systolic blood pressure 182 mm[Hg] [facility] Work Phone: [facility] 11-15-2023 19:15-0500 Diastolic blood pressure 78 mm[Hg] [facility] Work Phone: [facility] 11-15-2023 19:15-0500 Heart rate 84 /min [facility] Work Phone: [facility] 11-15-2023 19:15-0500 Respiratory rate 20 /min [facility] Work Phone: [facility] 11-15-2023 19:15-0500 SaO2% (BldA) [Mass fraction] 96 % [facility] Work Phone: [facility] 11-15-2023 19:15-0500 Systolic blood pressure 162 mm[Hg] [facility] Work Phone: [facility] 11-15-2023 16:51-0500 Body height 160.02 cm [facility] Work Phone: [facility] 11-15-2023 16:51-0500 Body temperature 97.7 [degF] [facility] Work Phone: [facility] 11-15-2023 16:51-0500 Body weight 128.9 kg [facility] Work Phone: [facility] 08-04-2023 18:16-0400 Body height 160.02 cm [facility] Work Phone: [facility] 08-04-2023 18:16-0400 Body temperature 98.1 [degF] [facility] Work Phone: [facility] 08-04-2023 18:16-0400 Body weight 125.4 kg [facility] Work Phone: [facility] 08-04-2023 18:16-0400 Diastolic blood pressure 84 mm[Hg] [facility] Work Phone: [facility] 08-04-2023 18:16-0400 Heart rate 81 /min [facility] Work Phone: [facility] 08-04-2023 18:16-0400 Respiratory rate 18 /min [facility] Work Phone: [facility] 08-04-2023 18:16-0400 SaO2% (BldA) [Mass fraction] 98 % [facility] Work Phone: [facility] 08-04-2023 18:16-0400 Systolic blood pressure 143 mm[Hg] [facility] Work Phone: [facility] 05-12-2023 18:32-0400 Heart rate 69 /min [facility] Work Phone: [facility] 05-12-2023 16:18-0400 Body height 160.02 cm [facility] Work Phone: [facility] 05-12-2023 16:18-0400 Body temperature 98.5 [degF] [facility] Work Phone: [facility] 05-12-2023 16:18-0400 Body weight 124.6 kg [facility] Work Phone: [facility] 05-12-2023 16:18-0400 Diastolic blood pressure 90 mm[Hg] Services [facility] Work Phone: [facility] 05-12-2023 16:18-0400 Respiratory rate 18 /min Services [employer] Work Phone: [facility] 05-12-2023 16:18-0400 SaO2% (BldA) [Mass fraction] 97 % [facility] Work Phone: [facility] 05-12-2023 16:18-0400 Systolic blood pressure 140 mm[Hg] [facility] Work Phone: [facility] 03-22-2023 10:30-0400 Body height 160.02 cm Bandar Hart Other [facility] Other 03-22-2023 10:30-0400 Body mass index (BMI) [Ratio] 47.82 kg/m2 Bandar Hart Other [facility] Other 03-22-2023 10:30-0400 Body weight 122.47 kg Bandar Hart Other [facility] Other 03-11-2023 15:30-0400 Body height 160.02 cm Mundokim Willis Other [facility] Other 03-11-2023 15:30-0400 Body mass index (BMI) [Ratio] 47.82 kg/m2 Kamal Tiffanyban Other [facility] Other 03-11-2023 15:30-0400 Body weight 122.47 kg Kamal Chaban Other [facility] Other 03-11-2023 15:30-0400 Diastolic blood pressure 81 mm[Hg] Kamal Chaban Other [facility] Other 03-11-2023 15:30-0400 SaO2% (BldA) [Mass fraction] 95 % Frank Willis Other [facility] Other 03-11-2023 15:30-0400 Systolic blood pressure 127 mm[Hg] Frank Willis Other [facility] [employer] Other 03-06-2023 01:13-0400 Diastolic blood pressure 66 mm[Hg] [facility] Work Phone: [facility] 03-06-2023 01:13-0400 Heart rate 72 /min [facility] Work Phone: [facility] 03-06-2023 01:13-0400 Respiratory rate 18 /min [facility] Work Phone: [facility] 03-06-2023 01:13-0400 SaO2% (BldA) [Mass fraction] 95 % [facility] Work Phone: [facility] 03-06-2023 01:13-0400 Systolic blood pressure 138 mm[Hg] [facility] Work Phone: [facility] 03-05-2023 22:55-0400 Body height 160.02 cm [facility] Work Phone: [facility] 03-05-2023 22:55-0400 Body temperature 98.1 [degF] [facility] Work Phone: [facility] 03-05-2023 22:55-0400 Body weight 124.2 kg [facility] Work Phone: [facility] 02-05-2023 12:36-0400 Diastolic blood pressure 88 mm[Hg] [facility] Work Phone: [facility] 02-05-2023 12:36-0400 Heart rate 80 /min [facility] Work Phone: [facility] 02-05-2023 12:36-0400 Respiratory rate 18 /min [facility] Work Phone: [facility] 02-05-2023 12:36-0400 SaO2% (BldA) [Mass fraction] 100 % [facility] Work Phone: [facility] 02-05-2023 12:36-0400 Systolic blood pressure 138 mm[Hg] [facility] Work Phone: [facility] 02-05-2023 10:42-0400 Body temperature 97.1 [degF] [facility] Work Phone: [facility] 02-05-2023 10:40-0400 Body height 160.02 cm [facility] Work Phone: [facility] 02-05-2023 10:40-0400 Body weight 122 kg [facility] Work Phone: [facility] 01-15-2023 02:26-0400 Diastolic blood pressure 59 mm[Hg] [facility] Work Phone: [facility] 01-15-2023 02:26-0400 Heart rate 69 /min [facility] Work Phone: [facility] 01-15-2023 02:26-0400 Respiratory rate 18 /min [facility] Work Phone: [facility] 01-15-2023 02:26-0400 SaO2% (BldA) [Mass fraction] 100 % [facility] Work Phone: [facility] 01-15-2023 02:26-0400 Systolic blood pressure 122 mm[Hg] [facility] Work Phone: [facility] 01-14-2023 21:31-0400 Body height 160.02 cm [facility] Work Phone: [facility] 01-14-2023 21:31-0400 Body temperature 98 [degF] [facility] Work Phone: [facility] 01-14-2023 21:31-0400 Body weight 122.6 kg [facility] Work Phone: [facility] 01-10-2023 22:30-0400 Diastolic blood pressure 67 mm[Hg] [facility] Work Phone: [facility] 01-10-2023 22:30-0400 Heart rate 75 /min [facility] Work Phone: [facility] 01-10-2023 22:30-0400 Respiratory rate 12 /min [facility] Work Phone: [facility] 01-10-2023 22:30-0400 SaO2% (BldA) [Mass fraction] 97 % [facility] Work Phone: [facility] 01-10-2023 22:30-0400 Systolic blood pressure 144 mm[Hg] [facility] Work Phone: [facility] 01-10-2023 20:11-0400 Body height 160.02 cm [facility] Work Phone: [facility] 01-10-2023 20:11-0400 Body temperature 98 [degF] [facility] Work Phone: [facility] 01-10-2023 20:11-0400 Body weight 125 kg [facility] Work Phone: [facility] 01-10-2023 14:15-0400 Diastolic blood pressure 80 mm[Hg] [facility] Work Phone: [facility] 01-10-2023 14:15-0400 Heart rate 80 /min [facility] Work Phone: [facility] 01-10-2023 14:15-0400 Systolic blood pressure 136 mm[Hg] [facility] Work Phone: [facility] 01-10-2023 13:38-0400 Body height 160.02 cm [facility] Work Phone: [facility] 01-10-2023 13:38-0400 Body temperature 98.1 [degF] [facility] Work Phone: [facility] 01-10-2023 13:38-0400 Body weight 123.75 kg [facility] Work Phone: [facility] 01-10-2023 13:38-0400 Respiratory rate 20 /min [facility] Work Phone: [facility] 01-10-2023 13:38-0400 SaO2% (BldA) [Mass fraction] 96 % [facility] Work Phone: [facility] 12-28-2022 00:21-0500 Diastolic blood pressure 64 mm[Hg] [facility] Work Phone: [facility] 12-28-2022 00:21-0500 Heart rate 87 /min [facility] Work Phone: [facility] 12-28-2022 00:21-0500 Respiratory rate 18 /min [facility] Work Phone: [facility] 12-28-2022 00:21-0500 SaO2% (BldA) [Mass fraction] 96 % [facility] Work Phone: [facility] 12-28-2022 00:21-0500 Systolic blood pressure 141 mm[Hg] [facility] Work Phone: [facility] 12-27-2022 21:35-0500 Body temperature 97.9 [degF] [facility] Work Phone: [facility] 12-27-2022 21:34-0500 Body height 160.02 cm [facility] Work Phone: [facility] 12-27-2022 21:34-0500 Body weight 115 kg [facility] Work Phone: [facility] 12-26-2022 01:08-0500 Body height 160.02 cm [facility] Work Phone: [facility] 12-26-2022 01:08-0500 Body temperature 98.1 [degF] [facility] Work Phone: [facility] 12-26-2022 01:08-0500 Body weight 123.1 kg [facility] Work Phone: [facility] 12-26-2022 01:08-0500 Diastolic blood pressure 80 mm[Hg] [facility] Work Phone: [facility] 12-26-2022 01:08-0500 Heart rate 82 /min [facility] Work Phone: [facility] 12-26-2022 01:08-0500 Respiratory rate 20 /min [facility] Work Phone: [facility] 12-26-2022 01:08-0500 SaO2% (BldA) [Mass fraction] 98 % [facility] Work Phone: [facility] 12-26-2022 01:08-0500 Systolic blood pressure 165 mm[Hg] [facility] Work Phone: [facility] 12-24-2022 14:01-0500 Body height 3718.56 cm [facility] Work Phone: [facility] 12-24-2022 14:01-0500 Body temperature 98.2 [degF] [facility] Work Phone: [facility] 12-24-2022 14:01-0500 Body weight 53 kg [facility] Work Phone: [facility] 12-24-2022 14:01-0500 Diastolic blood pressure 90 mm[Hg] [facility] Work Phone: [facility] 12-24-2022 14:01-0500 Heart rate 82 /min [facility] Work Phone: [facility] 12-24-2022 14:01-0500 Respiratory rate 18 /min [facility] Work Phone: [facility] 12-24-2022 14:01-0500 SaO2% (BldA) [Mass fraction] 94 % [facility] Work Phone: [facility] 12-24-2022 14:01-0500 Systolic blood pressure 155 mm[Hg] [facility] Work Phone: [facility] 12-06-2022 00:33-0500 Diastolic blood pressure 78 mm[Hg] [facility] Work Phone: [facility] 12-06-2022 00:33-0500 Heart rate 88 /min [facility] Work Phone: [facility] 12-06-2022 00:33-0500 Respiratory rate 19 /min [facility] Work Phone: [facility] 12-06-2022 00:33-0500 SaO2% (BldA) [Mass fraction] 98 % [facility] Work Phone: [facility] 12-06-2022 00:33-0500 Systolic blood pressure 125 mm[Hg] [facility] Work Phone: [facility] 12-05-2022 22:34-0500 Body height 160.02 cm [facility] Work Phone: [facility] 12-05-2022 22:34-0500 Body temperature 97.7 [degF] [facility] Work Phone: [facility] 12-05-2022 22:34-0500 Body weight 123 kg [facility] Work Phone: [facility] 09-24-2022 09:35-0500 Body height 160.02 cm [facility] Work Phone: [facility] 09-24-2022 09:35-0500 Body temperature 98.2 [degF] [facility] Work Phone: [facility] 09-24-2022 09:35-0500 Body weight 119.2 kg [facility] Work Phone: [facility] 09-24-2022 09:35-0500 Diastolic blood pressure 80 mm[Hg] [facility] Work Phone: [facility] 09-24-2022 09:35-0500 Heart rate 73 /min [facility] Work [facility] [facility] 09-24-2022 09:35-0500 Respiratory rate 16 /min [facility] Work Phone: [facility] 09-24-2022 09:35-0500 SaO2% (BldA) [Mass fraction] 97 % [facility] Work Phone: [facility] 09-24-2022 09:35-0500 Systolic blood pressure 144 mm[Hg] [facility] Work Phone: [facility] 09-13-2022 00:51-0500 Body height 160.02 cm [facility] Work Phone: [facility] 09-13-2022 00:51-0500 Body temperature 97.7 [degF] [facility] Work Phone: [facility] 09-13-2022 00:51-0500 Body weight 120.5 kg [facility] Work Phone: [facility] 09-13-2022 00:51-0500 Diastolic blood pressure 73 mm[Hg] [facility] Work Phone: [facility] 09-13-2022 00:51-0500 Heart rate 82 /min [facility] Work Phone: [facility] 09-13-2022 00:51-0500 Respiratory rate 20 /min [facility] Work Phone: [facility] 09-13-2022 00:51-0500 SaO2% (BldA) [Mass fraction] 99 % [facility] Work Phone: [facility] 09-13-2022 00:51-0500 Systolic blood pressure 145 mm[Hg] [facility] Work Phone: [facility] 09-07-2022 21:37-0500 Diastolic blood pressure 88 mm[Hg] [facility] Work Phone: [facility] 09-07-2022 21:37-0500 Heart rate 81 /min [facility] Work Phone: [facility] 09-07-2022 21:37-0500 Respiratory rate 17 /min [facility] Work Phone: [facility] 09-07-2022 21:37-0500 SaO2% (BldA) [Mass fraction] 97 % [facility] Work Phone: [facility] 09-07-2022 21:37-0500 Systolic blood pressure 168 mm[Hg] [facility] Work Phone: [facility] 09-07-2022 18:34-0500 Body height 160.02 cm [facility] Work Phone: [facility] 09-07-2022 18:34-0500 Body weight 118.6 kg [facility] Work Phone: [facility] 08-04-2022 22:25-0400 Body height 160.02 cm [facility] Work Phone: [facility] 08-04-2022 22:25-0400 Body temperature 98.2 [degF] [facility] Work Phone: [facility] 08-04-2022 22:25-0400 Body weight 118.55 kg [facility] Work Phone: [facility] 08-04-2022 22:25-0400 Diastolic blood pressure 58 mm[Hg] [facility] Work Phone: [facility] 08-04-2022 22:25-0400 Heart rate 74 /min [facility] Work Phone: [facility] 08-04-2022 22:25-0400 Respiratory rate 18 /min [facility] Work Phone: [facility] 08-04-2022 22:25-0400 SaO2% (BldA) [Mass fraction] 98 % Services [facility] Work Phone: [facility] 08-04-2022 22:25-0400 Systolic blood pressure 116 mm[Hg] Services [facility] Work Phone: [facility] 07-14-2022 23:00-0400 Diastolic blood pressure 66 mm[Hg] DO Stephanie Visci Work Phone: [facility] 07-14-2022 23:00-0400 Heart rate 87 /min DO Stephanie Visci Work Phone: [facility] 07-14-2022 23:00-0400 Respiratory rate 17 /min DO Stephanie Visci Work Phone: [facility] 07-14-2022 23:00-0400 SaO2% (BldA) [Mass fraction] 96 % DO Stephanie Visci Work Phone: [facility] 07-14-2022 23:00-0400 Systolic blood pressure 134 mm[Hg] DO Stephanie Visci Work Phone: [facility] 07-14-2022 22:00-0400 Body height 160.02 cm DO Stephanie Visci Work Phone: [facility] 07-14-2022 22:00-0400 Body temperature 98.8 [degF] DO Stephanie Visci Work Phone: [facility] 07-14-2022 22:00-0400 Body weight 119.7 kg DO Stephanie Visci Work Phone: [facility] 07-09-2022 14:55-0400 Diastolic blood pressure 66 mm[Hg] DO Stephanie Visci Work Phone: [facility] 07-09-2022 14:55-0400 Heart rate 89 /min DO Stephanie Visci Work Phone: [facility] 07-09-2022 14:55-0400 Respiratory rate 18 /min DO Stephanie Visci Work Phone: [facility] 07-09-2022 14:55-0400 SaO2% (BldA) [Mass fraction] 93 % DO Stephanie Visci Work Phone: [facility] 07-09-2022 14:55-0400 Systolic blood pressure 131 mm[Hg] DO Stephanie Visci Work Phone: [facility] 07-09-2022 14:35-0400 Inhaled oxygen flow rate 2 L/min DO Stephanie Visci Work Phone: [facility] 07-09-2022 10:10-0400 Body temperature 97.8 [degF] DO Stephanie Visci Work Phone: [facility] 07-09-2022 07:12-0400 Body height 160.02 cm DO Stephanie Visci Work Phone: [facility] 07-09-2022 07:12-0400 Body mass index (BMI) [Ratio] 46 kg/m2 DO Stephanie Visci Work Phone: [facility] 07-09-2022 07:12-0400 Body weight 118 kg DO Stephanie Visci Work Phone: [facility] 06-05-2022 00:30-0400 Diastolic blood pressure 63 mm[Hg] DO Stephanie Visci Work Phone: [facility] 06-05-2022 00:30-0400 Heart rate 60 /min DO Stephanie Visci Work Phone: [facility] 06-05-2022 00:30-0400 Respiratory rate 14 /min DO Stephanie Visci Work Phone: [facility] 06-05-2022 00:30-0400 SaO2% (BldA) [Mass fraction] 97 % DO Stephanie Visci Work Phone: [facility] 06-05-2022 00:30-0400 Systolic blood pressure 135 mm[Hg] DO Stephanie Visci Work Phone: [facility] 06-04-2022 21:24-0400 Body height 160.02 cm DO Stephanie Visci Work Phone: [facility] 06-04-2022 21:24-0400 Body temperature 98 [degF] DO Stephanie Visci Work Phone: [facility] 06-04-2022 21:24-0400 Body weight 118.05 kg DO Stephanie Visci Work Phone: [facility] 05-31-2022 13:59-0400 Diastolic blood pressure 79 mm[Hg] DO Stephanie Visci Work Phone: [facility] 05-31-2022 13:59-0400 Heart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 have been reviewed. 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 Prescription for Medrol dose pack provided [...] as documented in the electronic medical record. [facility] Other 05-15-2023 Evaluation note* Encounter Date Diagnosis [...] study and will continue to follow afterwards [facility] Other 03-20-2023 Hospital Discharge instructions Follow Up Care 01/14/2023 12:40:33 With:ROXY JACOBSEN PA-C, URL Address: [address] [place] [address] When: Unknown [facility] 08-03-2022 Progress note Author Stephanie Babcock [facility] May 30, 2022 9:04am Note Date/Time May 30, 2022 9:0 4am [facility] [address] [place] [address] PUMP SERVICE SUPERVISOR Progress Note Signed Patient: Ne Keita MR#: [id number] : 1985 Acct:[id number] Age/Sex: 36 / F Adm Date: 2 Loc: 3S Room: [address] [place] [address] Type: ADM INOo Attending Dr: Stephanie Babcock DO Copies to: ~ Date of Service: 05/30/2022 CHILDCARE ATTENDANT - PN: Subj Data Subjective History of [...] size of a fox. [facility]was [facility] and I was called. I asked if she was a smokerand they said no when I instructed them to put her on a control pill 3 times daily, Motrin and ferrous sulfate. She left the ER and says she could notfill her meds so she continued with having came to [facility] ER. The emergency room doctor called [...] is not having any significant COVID-related symptoms. CHILDCARE ATTENDANT - PN: Obj Data Labs Labs: Laboratory Results - last 24 hr 05/29/22 05/30/22 23:00 00:05 Corrected WBC 8.0 Uncorrected WBC Count 8.0 RBC 4.68 Hgb 11.3 L Hct 36.0 MCV 77.0 L MCH 24.1 L MCHC 31.4 L RDW 16.9 H Plt Count 272 MPV 10.0 Neut % (Auto) 61.5 Lymph % (Auto) 29.8 Archuleta % (Auto) 6.3 Eos % (Auto) 1.4 Baso % (Auto) 1.0 Neut # (Auto) 4.9 Lymph # (Auto) 2.4 Archuleta # (Auto) 0.5 Eos # (Auto) 0.1 Baso # (Auto) 0.1 Nucleated RBC % (auto) 0.1 SARS Antigen (LFIA) Positive A CHILDCARE ATTENDANT - Exam Physical Exam Vital signs: Temp [...] signed by Stephanie Babcock DO> 05/30/22 0904 [facility] Work Phone: 1(227) 113-955008-02-2022 Miscellaneous Notes* Telephone Encounter - Shellie Boone RN - 05/29/2022 11:48 PM EDT is currently in the ER being seen for vaginal bleeding. stated [facility] Pt is passing large clots and the blood is pouring out. He is frustrated because they want to send her home on hormones. Did advise he speak to her PUMP SERVICE SUPERVISOR. Pt just advise him that she did speak the Dr and they are going to admit her. [facility] NoteEducation Materials Obstetrics and Gynecology Abnormal Uterine [...] these instructions at home: Medicines ? Take lwfy-xtm-bzgimms and prescription medicines only as told by [...] your pee (urine) pale yellow. ? Take ygbe-wni-vbsfacj or prescription medicines. ? Eat foods that [...] provider. Document Revised: 08/16/2020 Document Reviewed: 08/16/2020 [employer] Patient Education ? 2020 [employer].[facility] anniston[facility] + Plan note No data available for this section [facility] Evaluation note* Diagnosis Onset Date Resolution Status Adenomyosis acute Chronic pelvic pain in female acute COVID-19 acute DUB (dysfunctional uterine bleeding) acute Menometrorrhagia acute [facility] Work Phone: Evaluation noteNo assessment information available [facility] Work Phone: Evaluation noteNo InformationNort [employer] Other Evaluation note* Diagnosis Encounter for gynecological [...] 2003 Hospitalization History 2005 Hospitalization History 2009 [facility] Other [facility]te general Narrative - Reported* Type Description Date Medical History 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 Medical History [...] 2003 Hospitalization History 2005 Hospitalization History 2009 [facility] Other Hospital Discharge instructions Additional Instructions Follow-up with your primary care doctor Return to ED if develop worsening symptoms or concerns[facility] Work Phone: Hospital Discharge instructions Additional Instructions Follow up with your primary care doctor Return to the ED if you develop worsening symptoms or concernsM[facility] Work Phone: Hospital Discharge instructions Additional Instructions Return for worsening symptoms Follow-up family doctorM[facility] Work Phone: Hospital Discharge instructions Additional Instructions Take Zofran as prescribed for nausea vomiting. Try to get at least 8 hours of sleep at night to help prevent recurrent symptoms. Follow-up with your PCP for recheck of your blood pressure within 5 to 7 days.[facility] Work Phone: Hospital Discharge instructions Additional [...] bowel control high fever or any other concernsM[facility]ull[facility] Work Phone: Hospital Discharge instructions Additional [...] any more questions, please call Dr. Paniagua tomorrow.[facility] Work Phone: Hospital Discharge instructions Additional [...] leg I do want you to come back.[facility] Work Phone: Hospital Discharge instructions Additional [...] chest pain high fever or any other concernsPrem[facility] Work Phone: Hospital Discharge instructions Additional Instructions Take Motrin Tylenol as needed for recurrent headache. Apply the nystatin cream for yeast infection. Follow-up with Dr. Juarez for any ongoing symptoms.[facility] Work Phone: Hospital Discharge instructions Additional Instructions Take Motrin Tylenol as needed for painMccullough[facility] Work Phone: Progress note No data available for this section 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 DATE CREATED AUTHOR AUTHOR'S ORGANIZ ATION 03/07/2025 [facility] DATE CREATED AUTHOR AUTHOR'S ORGANIZ ATION 04/01/2025 [facility] DATE CREATED AUTHOR AUTHOR'S ORGANIZ ATION 04/25/2025 [facility] DATE CREATED AUTHOR AUTHOR'S ORGANIZ ATION 05/28/2025 [employer] Source Comments (unrecognize d section and content) In the event this informatio n is protected by the Federal Confidentiality of Alcohol and Drug Abuse Patient Records regulations: The Federal rules restrict any use of the information to criminally investigate or prosecute any alcohol or drug abuse patient.[facility] Reason for Visit (unrecogniz ed section and [...] Inactive Member Role Status Dates Services [facility] Primary Care Provider Active Cary E [...] Primary Care Provider Active Rachell Vang , HEEL SEAT POUNDER- Emergency Provider Active Ore Buyer Relationship Specialty Start Date End Date Annette Valladares II PCP - General Family Practice 04/05/17 Latonya Perkins MD [address] [place] [address] Referring PUMP SERVICE SUPERVISOR 04/05/17 Team Status: Inactive Member Role Status Dates Services [facility] Primary Care Provider Active Stephanie Babcock DO Attending Provider Active Team Status: Inactive Member Role Status Dates Services [facility] Primary Care Provider Active Farhat Castro DO Emergency Provider Active Renny Rivera DO RES Active Team Status: Inactive Member Role Status Dates Services [facility] Primary Care Provider Active Jesus Petersen DO Emergency Provider Active Team Status: Inactive Member Role Status Dates Services [facility] Primary Care Provider Active Jah Almonte Jr, MD Emergency Provider Active Stephanie Babcock DO Admit Provider, Attending Provider Active Team Status: Inactive Member Role Status Dates Larissa Resendiz , UZMA X RAY NURSE-C Primary Care Provide r Active Stephanie Babcock DO Attending Provider Active Team Status: Active Member Role Status Dates Larissa Resendiz , MECHANICAL TEST ENGINEER X RAY NURSE-C Primary Care Provide r Active Team Status: Inactive Member Role Status Sharon Babcock DO Attending Provider Active Larissa Resendiz , MECHANICAL TEST ENGINEER X RAY NURSE-C Primary Care Provide r Active Team Status: Inactive Member Role Status Sharon Castro DO Emergency Provider Active Charan Howell DO RES Active Services [facility] Primary Care Provider Active Team Status: Inactive Member Role Status Dates Services [facility] Primary Care Provider Active Renato Kumar MD Emergency Provider Active Team Status: Inactive Member Role Status Dates Services [facility] Primary Care Provider Active Jah Almonte Jr, MD Emergency Provider Active Team Status: Active Member Role Status Dates Services [facility] Primary Care Provider Active Jah Almonte Jr, MD Emergency Provider Active Team Status: Inactive Member Role Status Dates Services [facility] Primary Care Provider Active Larissa Resendiz APRN X RAY NURSE-Tripp Attending Provider A ctive Team Status: Inactive [...] MD Attending Provider Active Larissa Resendiz APRN X RAY NURSE-Tripp Referring Provider A ctive Team Status: Inactive [...] Member Role Status Dates Larissa Resendiz APRN X RAY NURSE-Tripp Attending Provider A ctive Start: February 19, [...] March 30, 2024 End: March 31, 2024 Ore Buyer Relationship Specialty Start Date End Date Unallocated, [place] [address] PCP - General Family Medicine 01/24/24 Ore Buyer Relationship Specialty Start Date End Date Unallocated, [place] [address] PCP - General Family Medicine 01/24/24 Team Status: Inactive Member Role Status Dates Services [facility] Primary Care Provider Active Start: [...] BE BASED ON THE PRIMARY CLINICAL RECORDS. [employer] provides no warranty or guarantee of the accuracy or completeness of information in this document.
== END 2025-07-05 15:43 | disposition home or self-care (01) ==
PROVIDERS: Emergency Provider Emergency Medicine
DX: J06.9 Acute upper respiratory infection, unspecified (principal); F17.200 Nicotine dependence, unspecified, uncomplicated
CPT/HCPCS: 87811; 99283

== ENCOUNTER 2025-10-05 00:34 | Emergency (ER) | payer OTHER, SELFPAY ==
--- OUTSIDE RECORDS SUMMARY | 2013-12-18 09:00 | XMS_ITS | Continuity of Care Document ---
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 Name Role Phone Sadiq ELKINS DO, Bar Unavailable Unavailable Procedures Procedure Date OFFICE/OUTPATIENT VISIT, EST OFFICE/OUTPATIENT VISIT, EST URINE TEST TB INTRADERMAL TEST OFFICE/OUTPATIENT VISIT, EST CARE COORDINATION TB INTRADERMAL TEST OFFICE/OUTPATIENT VISIT, [facility] ROUTINE VENIPUNCTURE RISK ASSISSMENT COUNSELING AND EDUCATION CARE COORDINATION OFFICE/OUTPATIENT VISIT, EST URINE TEST Advance Directives Directive Yes / No Effective Date File Name Resuscitation Not Answered N/A N/A Life Support Not Answered N/A N/A Intubation Not Answered N/A N/A Antibiotics Not Answered N/A N/A IV Fluid Support Not Answered N/A N/A Tube Feed Not Answered N/A N/A Other Directive N/A N/A WARNING:The information contained in this section is historical and is provided for information only and does not constitute a legal document or any assurance that the information is still accurate. Please verify the information with the rodgers of the legal document before using it for clinical purposes. Encounters Encounter Description Practice Location Reason(s) For Visit Diagnoses Date Provider Providers Copied on Encounter OFFICE/OUTPAT IENT VISIT, EST [facility], [address] [place] [address], [id number], [place] tel:[phone] [facility] test (chief complaint) examination or test, negative result Sadiq ELKINS Bar. [address] [place], [place], [id number], [place]. tel:[phone] [facility], [address] [place], [place], [id number], [place] tel:[phone] [facility] No Information Cruzrani Martines. [address] [place], [place], [id number], [place]. tel:[phone] OFFICE/OUTPAT IENT VISIT, [facility], [address] [place], [place], [id number], [place] tel:[phone] [facility] No Information Michelle Burton. [address] [place], [place], [id number]. tel:[phone] OFFICE/OUTPAT IENT VISIT, [facility], [address] [place], [place], [id number], [place] tel:[phone] [facility] No Information Sara Kaufman. [address] [place], [place], [id number]. tel:[phone] OFFICE/OUTPAT IENT VISIT, [facility], [address] [place], [place], [id number], [place] tel:[phone] [facility] No Information Sadiq Martines. [address] [place], [place], [id number], [place]. tel:[phone] Family History Family Member Type Diagnosis Age At Onset No Information Payers Payer name Insurance type Covered alliance party ID Steph garcia(s) [employer] [place] [id number] Social History Type Description Quantity Date Captured Comments Alcohol Use Details Unknown Caffeine Use Details Unknown Tobacco Use Status No Information Smoking Status No Information Sex Female Sexual Orientation Straight or heterosexual Jun Gender Identity Female Chief Complaint And Reason For Visit From encounter dated '12/18/2013 14:00'. test (chief complaint) Reason For Referral Reason For Referral No Information History Of Present Illness Encounter Date Complaint History Of Prese nt Illness No Information Functional Status Date Functional Assessmen t No Information Instructions Date Instruction Additional Infor mation No Information Assessments Type Assessment Date No Information Patient Care Teams Name Effective Dates (start - stop) Status Members No Information
--- OUTSIDE RECORDS SUMMARY | 2025-01-27 10:45 | XMS_ITS ---
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 Role Phone Yoli Michel Primary Care Provider Omid Harper [phone] REASON FOR VISIT weight management Encounters Encounter Location Date Provider Diagnosis [facility] [address] [place] [address] 01/27/2025 Omid Harper Plan Of Treatment No Information Progress Notes * NE DURHAM DDOB:[birth year] (40 yo F)Acc No.[id number]:01/27/2025 Progress Notes Patient: PRASHANTH DOWNEYANDRA Pino :?Omid Harper DODOB:1985???Age:39 Y???Sex: FemaleDate:01/27/2025Phone:[phone]:AINSLEY JONES [id number]:Yoli Michel Subjective: * Chief Complaints: * W eight management Billing Information: * Procedure Codes: * Electronic signature of Omid Harper DO, [id number] on 10/05/2025 at 01:03 AM ESTSign off status: Pending * Provider: Violeta Harper DO Date: 0 01/27/2025 Generated for Printing/Faxing/eTransmitting on:?10/05/2025 01:03 AM EST
--- OUTSIDE RECORDS SUMMARY | 2025-07-23 08:45 | XMS_ITS ---
Author Organization [facility] Address [address] [place] [address] Care Team Providers Care Lead Burner Apprentice Name Role Phone Yoli Michel Primary Care Provider REASON FOR VISIT throwing up/ work note Encounters Encounter Location Date Provider Diagnosis [facility] [address] [place] [address] 07/23/2025 Yoli Michel Plan Of Treatment No Information Progress Notes * NE DURHAM DDOB:[birth year] (40 yo F)Acc No.[id number]:07/23/2025 Progress Notes Patient: JUN DOWNEYRA Pino :?Yoli OneillnDOB:1985???Age:40 Y???Sex:Female Date:07/23/2025Phone:[phone]:AINSLEY JONES [id number] Subjective: * Chief Complaints: * T hrowing up/ work note Billing Information: * Procedure Codes: * Electronic signature of Yoli Michel NP on 10/05/2025 at 01:04 AM ESTSign off status: Pending * Provider: Paras Michel Date: 0 07/23/2025 Generated for Printing/Faxing/eTransmitting on:?10/05/2025 01:04 AM EST
--- OUTSIDE RECORDS SUMMARY | 2025-07-26 08:30 | XMS_ITS ---
[facility] Organization [facility] Address [address] [place] [address] Care Team Providers Care Procurement Director Name Role Phone Yoli Michel Primary Care Provider REASON FOR VISIT throwing up/ work note Encounters Encounter Location Date Provider Diagnosis [facility] [address] [place] [address] 07/26/2025 Yoli Michel Plan Of Treatment No Information Progress Notes * NE DURHAM DDOB:[birth year] (40 yo F)Acc No.[id number]:07/26/2025 Progress Notes Patient: JUN DOWNEYRA Pino :?Yoli OneillnDOB:1985???Age:40 Y???Sex:Female Date:07/26/2025Phone:[phone]:AINSLEY JONES [id number] Subjective: * Chief Complaints: * T hrowing up/ work note Billing Information: * Procedure Codes: * Electronic signature of Yoli Michel NP on 10/05/2025 at 01:04 AM ESTSign off status: Pending * Provider: Paras Michel Date: 0 07/26/2025 Generated for Printing/Faxing/eTransmitting on:?10/05/2025 01:04 AM EST
--- OUTSIDE RECORDS SUMMARY | 2025-09-30 01:35 | XMS_ITS | Encounter Summary ---
Author Organization [facility] tem Address [id number] [place] [address] Care Team Providers Care Editorial Assistant Name Role Phone No Pcp, No Pcp Primary Care Provider Unavailabl e Reason for Visit * ReasonCommentsSore ThroatCough Encounter Details DateTypeDepartmentCare Team (Latest Contact Info)Ylwoivjykip43/04/2025 1:35 AM EST - 09/30/2025 3:07 AM [facility] - Emergency [address] [place] [address] David Khan MD [facility] [place] [address] Upper respiratory tract infection, unspecified type (Primary Dx) Discharge Disposition: Home Social History Tobacco UseTypesPacks/DayYears UsedDateSmoking Tobacco: Never AssessedChildcare AnswerDate KoeuefutGoznxhveyJkzzbix79/12/2019EmploymentAnswerDate Recorded QwiohnekygSxvcolo70/12/2019Hunger ScreeningAnswerDate RecordedWithin the past 12 months we worried whether our food would run out before we got money to buy more.Never True09/30/2025Within the past 12 months the food we bought just didn't last and we didn't have money to get more.Never True09/30/2025Purpose - LifeAnswerDate RecordedPurpose and direction in ptzgQfcmwgm88/11/2021 CommentsNoSex and Gender InformationValueDate RecordedSex Assigned at BirthNot on fileLegal AgmMwquhn84/04/2015 11:24 PM EDTGender IdentityNot on fileSexual OrientationNot on filedocumented as of this encounter Last Filed Vital Signs Vital SignReadingTime TakenCommentsBlood Oyflgreg746/6409/30/2025 1:47 AM EST Trjhw847009/30/2025 1:47 AM LBFSgkfkrufofo42.8 ??C (98.2 ??F)09/30/2025 1:47 AM ESTRespiratory Yayf506912/01/2024 1:47 AM ESTOxygen Gmefiutwtu42%09/30/2025 1:47 AM ESTInhaled Oxygen Concentration--Flueks053.7 kg (286 lb)09/30/2025 1:47 AM DYVAauudm215 cm (5' 3 )09/30/2025 1:47 AM ESTBody Mass Index50.6609/30/2025 1:47 AM ESTdocumented in this encounter Discharge Instructions * Discharge Instructions* David Khan MD - 09/30/2025 2:58 AM EST Rest. Make certain you are drinking enough water or Pedialyte to stay well hydrated. Take Tylenol and Robitussin, as prescribed, for discomfort. Please contact your primary care physician's office today to schedule follow-up. * Attachments The following attachments cannot be sent through Care Everywhere. * Cough, runny nose, and colds (Yoruba) documented in this encounter Medications at Time of Discharge MedicationSigDispense QuantityRefillsLast FilledStart DateEnd Date acetaminophen (TYLENOL EXTRA STRENGTH) 500 mg tablet Take 2 tablets (1,000 mg total) by mouth every 6 (six) hours as needed for pain, headaches or fever. 30 tablet 09/30/2025 ARIPiprazole (ABILIFY) 10 mg tablet Take 1 tablet (10 mg total) by mouth in the morning. guaiFENesin (ROBITUSSIN) 100 mg/5 mL syrup Take 20 mL (400 mg total) by mouth every 4 (four) hours as needed for cough. 60 mL 09/30/2025documented as of this encounter ED Notes * David Khan MD - 09/30/2025 1:48 AM EST Images from the original note were not included. [facility] - EMERGENCY Pt Name: Joan Keita Birthdate: 1985 Chief Complaint: Chief Complaint Patient presents with Sore Throat Cough History of Present Illness: Patient is an afebrile 40-year-old female presenting to the emergency department secondary to URI symptoms. Symptomatology has been ongoing for the last 24 hours. She describes having postnasal drip,sore throat, and cough. Patient remarked to nursing staff that she believes she has pneumonia. Patient has taken no medications to relieve her symptoms prior to seeking emergent evaluation. Past Medical History: History reviewed. No pertinent past medical history. Past Surgical History: History reviewed. No pertinent surgical history. Family History: History reviewed. No pertinent family history. Social History: Social History Socioeconomic History Marital status: Social Drivers of Health Food Insecurity: No Food Insecurity (09/30/2025) Hunger Screening Food Insecurity - Worry: Never True Food Insecurity - Inability: Never True Review of Systems: Review of Systems Physical Exam: ED Triage Vitals [09/30/25146] Temp Heart Rate Resp BP SpO2 36.8 ??C (98.2 ??F) 81 16 131/64 93 % Temp Source Heart Rate Source Patient Position BP Location FiO2 (%) Oral Pulse Ox Sitting Right arm -- Vitals: 09/30/25146 BP: 131/64 Temp: 36.8 ??C (98.2 ??F) TempSrc: Oral Pulse: 81 Resp: 16 SpO2: 93% Height: 160 cm (5' 3 ) Weight: 129.7 kg (286 lb) 93 Physical Exam Constitutional: General: She is not in acute distress. Appearance: She is obese. She is not ill-appearing, toxic-appearing or diaphoretic. HENT: Head: Normocephalic and atraumatic. Right Ear: Tympanic membrane and ear canal normal. Left Ear: Tympanic membrane normal. Nose: Congestion present. Mouth/Throat: Mouth: Mucous membranes are moist. No oral lesions. Pharynx: Posterior oropharyngeal erythema present. No pharyngeal swelling, oropharyngeal exudate oruvula swelling. Tonsils: No tonsillar exudate or tonsillar abscesses. Eyes: Conjunctiva/sclera: Conjunctivae normal. Cardiovascular: Rate and Rhythm: Normal rate and regular rhythm. Pulmonary: Effort: Pulmonary effort is normal. No respiratory distress. Breath sounds: Normal breath sounds. No stridor. No wheezing, rhonchi or rales. Musculoskeletal: Cervical back: Normal range of motion and neck supple. Skin: General: Skin is warm and dry. Neurological: General: No focal deficit present. Mental Status: She is alert and oriented to person, place, and time. Psychiatric: Mood and Affect: Mood normal. Behavior: Behavior normal. Procedure: Procedures Re-evaluation: Re-Evaluation Medical Decision Making URI symptoms. Nontoxic and afebrile. No wheezing, rales, rhonchi, or stridor present on my exam. Speaking in full sentences without difficulty. Nasal congestion noted with postnasal drip. Viral swab ordered. Rapid strep ordered. Two-view chest x-ray ordered. Differential diagnosis: URI, pharyngitis, bronchitis, pneumonia Amount and/or Complexity of Data Reviewed Labs: ordered. Decision-making details documented in ED Course. Radiology: ordered. Decision-making details documented in ED Course. Risk OTC drugs. ED Course: ED Course as of 09/30/25316u Sep 30, 2025 020 Patient declined ordered Tylenol citing that she does not have a fever and right now has no pain. [RS] 0207 Chest x-ray interpreted by radiology as: Findings: There is no evidence for active cardiovascular or pulmonary disease. The heart size is within normal limits and the lung sanderson are clear. Extensive metallic hardware seen throughout the thoracic and lumbar spine. Impression: Normal chest. [RS] 0212 Strep test negative. [RS] 0223 Patient resting comfortably. Updated on chest x-ray and rapid strep results. Awaiting viral results for disposition [RS] 0257 Flu A PCR: Negative [RS] 0257 Flu B PCR: Negative [RS] 0257 RSV by PCR: Negative [RS] 0257 COVID-19: Not Detected Viral testing negative [RS] 0300 Patient updated on results and outpatient care plan. Agreeable with same. [RS] ED Course User Index [RS] David Khan MD Clinical Impressions as of 09/30/25316 Upper respiratory tract infection, unspecified type . ED Disposition ED Disposition Discharge Date/Time [facility] Sep 30, 2025 2:58 AM Comment At the time of discharge, the plan has been discussed with the patient regarding the diagnosis and prognosis. All questions have been answered. Verbal discharge instructions were discussed with the patient. The patient has been advised to follow up w ith their Primary Care Provider within 1-2 days.The patient was also instructed to return to the ED if their symptoms change, worsen, new symptoms a rise or if they have any additional concerns. Medications Prescribed this Visit Sig acetaminophen (TYLENOL EXTRA STRENGTH) 500 mg tablet Take 2 tablets (1,000 mg total) by mouth every6 (six) hours as needed for pain, headaches or fever. guaiFENesin (ROBITUSSIN) 100 mg/5 mL syrup Take 20 mL (400 mg total) by mouth every 4 (four) hours as needed for cough. . Please note that portions of this note were completed with a voice recognition program. Efforts were made to edit the dictations but occasionally words are mis-transcribed. aDvid Khan MD 09/30/25 0150 David Khan MD 09/30/25 0317 * Haven Gandhi RN - 09/30/2025 1:48 AM EST Pt to er with c/o sore throat and cough for the last few days. Pt states she feels like she has pneumonia. Pt is alert and oriented during triage, ambulated to er stretcher without difficulty. documented in this encounter Plan of Treatment Not on file documented as of this encounter Procedures Procedure NamePriorityDate/TimeAssociated DiagnosisCommentsPOCT RAPID STREP A Bhfuqew0309/30/2025 2:06 AM EST SARS/FLU A+B/RSV BY NAAT/MOLECULAR (M4RT COLLECTION TUBE)STAT112/01/2024 2:03 AM EST XR CHEST 2 OJHIMIS48/04/2025 2:01 AM EST documented in this encounter Results * POCT rapid strep A (09/30/2025 2:06 AM EST)ComponentValueRef RangeTest Method Analysis TimePerformed AtPathologist SignaturePOC Rapid Strep ScreenNegative Zpshxjeo25/04/2025 5:32 AM [facility])Anatomical Location / LateralityCollection Method / VolumeCollection TimeReceived Time09/30/2025 2:06 AM EST09/30/2025 5:32 AM EST Narrative Authorizing ProviderResult TypeResult StatusRyan H Erin MDPOINT OF CARE TEST ORDERABLESFinal ResultPerforming OrganizationAddressCity/State/ZIP CodePhone Number [facility] [address] [facility] [place] [address], * SARS/FLU A+B/RSV by NAAT/Molecular (M4RT Collection Tube) (09/30/2025 2:03 AM EST)ComponentValueRef RangeTest MethodAnalysis TimePerformed AtPathologist SignatureFLU A DLZTsjyzfwgIjpyvdaw20/04/2025 2:46 AM ESTUC HEALTHFLU B QEFOdgmqajcXzayagus03/04/2025 2:46 AM ESTUC HEALTHRSV BY BSNQcrvxwgsCzvxiwht38/04/2025 2:46 AM EST [facility] COV 2 BY PCRNot DetectedNot Detected 09/30/2025 2:46 AM [facility] ([facility]) Anatomical Location / LateralityCollection Method / VolumeCollection Time Received TimeSwabNasopharyngeal structure / Bqukwsz8909/30/2025 2:03 AM EST 09/30/2025 2:08 AM EST Narrative [facility] - 09/30/2025 2:46 AM EST The Xpert Xpress SARS-CoV-2/Flu/RSV Plus test is a rapid, multiplexed real-time RT-PCR test intended for the simultaneous qualitative detection and differentiation of SARS-CoV-2, influenza A, influenza B and respiratory syncytial virus (RSV) viral RNA from individuals suspected of respiratory viral infection consistent with COVID-19 by Their healthcare provider. This test has not been validated in asymptomatic patients. The Xpert Xpress SARS-CoV-2 test is intended for use by qualified and trained operators who are performing tests using either [employer] or [employer] systems and is limited to laboratories that meet the CLIA requirements to perform high and moderate complexity tests. Results are for the simultaneous detection and differentiation of SARS-CoV-2, influenza A, influenza B and RSV nucleic acids in clinical specimens. SARS-CoV-2, influenza A, influenza B and RSV RNA identified by this test are generally detectable in upper respiratory samples during the acute phase of infection. Positive results are Indicative of the presence of the identified virus, but do not rule out bacterial infection or co-infection with other pathogens not detected by this test. Clinical correlation with patient history and other diagnostic information is necessary to determine patient infection status. The agent detected may not be the definite cause of disease. Negative results do not preclude SARS-CoV-2, influenza A, influenza B and RSV infection and should not be used as the sole basis for treatment or other patient management decisions. Negative results must be combined with clinical observations, patient history and epidemiological information. An Invalid result may occur with specimen-associated inhibition unable to be resolved with specimen repeat. Authorizing ProviderResult TypeResult StatusRyan Paras Khan MDMICROBIOLOGY - GENERAL ORDERABLESFinal ResultPerforming OrganizationAddressCity/State/ZIP Code Phone Number [facility] [address] [place] [address], * X-ray chest 2 views (09/30/2025 2:01 AM EST)Anatomical RegionLaterality ModalityBody, ChestN/AComputed RadiographySpecimen (Source)Anatomical Location / LateralityCollection Method / VolumeCollection TimeReceived Time09/30/2025 2:04 AM EST Narrative 09/30/2025 2:05 AM EST History: Cough Technique: Frontal and lateral views the chest were obtained. Comparison: None Findings: There is no evidence for active cardiovascular or pulmonary disease. The heart size is within normal limits and the lung sanderson are clear. Extensive metallic hardware seen throughout the thoracic and lumbar spine. Impression: Normal chest. Finalized by Dat Lees MD on 09/30/2025 2:05 AM Procedure Note Dat Lees MD - 09/30/2025 History: Cough Technique: Frontal and lateral views the chest were obtained. Comparison: None Findings: There is no evidence for active cardiovascular or pulmonarydisease. The heart size is within normal limits and the lung sanderson areclear. Extensive metallic hardware seen throughout the thoracic and lumbarspine. Impression: Normal chest. Finalized by Dat Lees MD on 09/30/2025 2:05 AM Authorizing ProviderResult TypeResult StatusDavid BALDWIN DIAGNOSTIC IMAGING ORDERABLESFinal Result documented in this encounter Visit Diagnoses Diagnosis Upper respiratory tract infection, unspecified type- Primary documented in this encounter Active and Recently Administered Medications Times are shown in EST.Medication Order acetaminophen (TYLENOL EXTRA STRENGTH) tablet 1,000 mg 1,000 mg, oral, Once, On Michell 09/30/25 at 0151, For 1 dose * 0151 (Not Given - Provider: Haven Gandhi RN - Reason: Patient/family refused - Comment: pt refused stating I do not have a fever and I am not in any pain now. Educated on why medication was orderd and pt continues to refuse. Dr Khan notified) documented in this encounter Additional Health Concerns InfectionOnset DateLast IndicatedResolved TimeRespiratory Rule-Out09/30/2025 2:46 AM ESTdocumented as of this encounter Care Teams Team MemberRelationshipSpecialtyStart DateEnd Date No Pcp, [place] [address] PCP - GeneralFamily Medicine07/11/18documented as of this encounter
[2025-10-05 00:38] VITALS: BP 178/87; PULSE 85; TEMP 36.8; O2SAT 97; BMI 32.2
--- NOTE | 2025-10-05 00:48 | ED.SKABFB1 ---
HPI - Skin/Abscess/Foreign Bdy General Chief complaint: Skin/Abscess/Foreign Body Stated complaint: CHEST PAIN Time Seen by Provider: 10/05/25 00:43 Source: patient Mode of arrival: walk-in Limitations: no limitations History of Present Illness HPI narrative: patient presents concerned of possible insect bite left breast. states she noticed it tonight. feels a little nauseated. No fever and only mild pain. Related Data Home Medications ?Medication ?Instructions ?Recorded ?Confirmed No Known Home Medications 07/05/25 10/05/25 Allergies Allergy/AdvReac Type Severity Reaction Status Date / Time codeine Allergy Mild Rash Verified 07/05/25 14:31 Penicillins Allergy Unknown Rash Verified 07/05/25 14:31 sulfamethoxazole (From AdvReac Mild itchy Verified 07/05/25 14:31 Bactrim) trimethoprim (From Bactrim) AdvReac Mild itchy Verified 07/05/25 14:31 Review of Systems ROS Status of ROS 10 or more systems reviewed and unremarkable except as noted in history and below PFSH PFSH Social History Smoking status: Current every day smoker Little interest or pleasure in doing things: not at all Feeling down, depressed, or hopeless: not at all Exam Constitutional Vital Signs, click to edit/add: Last Vital Signs Temp 98.2 F 10/05/25 00:38 Pulse 85 10/05/25 00:38 Resp 18 10/05/25 00:38 BP 178/87 H 10/05/25 00:38 Pulse Ox 97 10/05/25 00:38 O2 Del Method Room Air 10/05/25 00:38 Common normals: no apparent distress, oriented x3, no limitations, healthy appearing, alert and well nourished [facility] Common normals: normocephalic and head/scalp atraumatic Eye Common normals: EOMs intact bilaterally and conjunctivae normal Chest Chest images (female):  1. superficial abscess 2.5cm. sl.raised and minute drainage. not indurated or fluctuant Respiratory Common normals: normal respiratory effort, no retractions, no use of accessory muscles and clear to auscultation bilaterally Cardio Common normals: regular rate, regular rhythm, S1 normal heart sound and S2 normal heart sound Extremity Common normals: normal to inspection and full ROM Neuro Common normals: oriented x3, CN's II-XII intact bilaterally and moves all extremities Psych Appearance: grossly normal Course Vital Signs Vital signs: Vital Signs Temperature 98.2 F 10/05/25 00:38 Pulse Rate 85 10/05/25 00:38 Respiratory Rate 18 10/05/25 00:38 Blood Pressure 178/87 H 10/05/25 00:38 Pulse Oximetry 97 10/05/25 00:38 Oxygen Delivery Method Room Air 10/05/25 00:38 Temperature 98.2 F 10/05/25 00:38 Pulse Rate 85 10/05/25 00:38 Respiratory Rate 18 10/05/25 00:38 Blood Pressure 178/87 H 10/05/25 00:38 Pulse Oximetry 97 10/05/25 00:38 Oxygen Delivery Method Room Air 10/05/25 00:38 MDM - Skin/Abscess/Foreign Bdy MDM Narrative Medical decision making narrative: patient presents with an early abscess on her left breast. Inspection finds minor drainage. Will not need incision as it is draining. no fluctuance and only mild tenderness. Patient informed of the plan to treat with clindamycin . Will provide prescription of zofran and recommend follow up with her doctor for a recheck Discharge Plan Discharge Chief Complaint: Skin/Abscess/Foreign Body Clinical Impression: Abscess Patient Disposition: Home, Self-Care Prescriptions / Home Meds: No Action No Known Home Medications Print Language: Andorran Instructions: Abscess (ED) Additional Instructions: follow up with your doctor in 2-3 days for a recheck Referrals: [facility] [Primary Care Provider] - 1 week Discharge Date/Time: 10/05/25 01:28
[2025-10-05] MEDS: ONDANSETRON 4 MG RAPDIS TABLET SL (00:53)
[2025-10-05] MEDS: CLINDAMYCIN HCL 150 MG CAPSULE 300 MG PO (00:53)
--- NOTE | 2025-10-05 00:59 | PC.NURSE ---
draining abscess to left breast, also excoriation under both breasts. Patient educated on cleaning under breasts and importance of keeping area dry
--- OUTSIDE RECORDS SUMMARY | 2025-10-05 01:03 | XMS_ITS | Encounter Summary ---
[facility] [place] [facility] [place] [address] Care Team Providers Care Big Data Engineer Name Role Phone No Pcp, No Pcp Primary Care Provider Unavailabl e Encounter Details DateTypeDepartmentCare Team (Latest Contact Info)Xpmlocalijh92/04/2025Travel Social History Tobacco UseTypesPacks/DayYears UsedDateSmoking Tobacco: Never AssessedChildcare AnswerDate SrwhantsSvzyufkzlEcavzzr01/12/2019EmploymentAnswerDate Recorded CihytsvtvuGdketyf00/12/2019Hunger ScreeningAnswerDate RecordedWithin the past 12 months we worried whether our food would run out before we got money to buy more.Never True09/30/2025Within the past 12 months the food we bought just didn't last and we didn't have money to get more.Never True09/30/2025Purpose - LifeAnswerDate RecordedPurpose and direction in hjnuKcmfxug26/11/2021 CommentsNoSex and Gender InformationValueDate RecordedSex Assigned at BirthNot on fileLegal HfcKrhwvz02/04/2015 11:24 PM EDTGender IdentityNot on fileSexual OrientationNot on filedocumented as of this encounter Plan of Treatment Not on file documented as of this encounter Visit Diagnoses Not on filedocumented in this encounter Additional Health Concerns InfectionOnset DateLast IndicatedResolved TimeRespiratory Rule-Out09/30/2025 2:46 AM ESTdocumented as of this encounter Care Teams Team MemberRelationshipSpecialtyStart DateEnd Date No Pcp, [place] [address] PCP - GeneralFamily Medicine9/14/18documented as of this encounter
--- OUTSIDE RECORDS SUMMARY | 2025-10-05 01:04 | XMS_ITS | Clinical Summary ---
Author Organization [facility] Address [address] [place] [address] Care Team Providers Care Business Support Professional Name Role Phone Unallocated, Noms Provider Primary Care Provi abel Allergies Active AllergyReactionsCriticalityNoted DateCommentsCodeineRash,Unknown,OtherLow 09/07/2020 Itchy skin per patient LatexRash,TbsbcHhu35/20/1315Zuzwzbabvnjui11/24/2025 Other Reaction(s): Unknown OoqqoupixnsWjvmVcz20/25/2023Prunus PersicaHives,RjcpRwg1309/07/2020 Sulfamethoxazole-ExjflwwuxickBitrDwj23/25/2023 Medications MedicationSigDispense QuantityRefillsLast FilledStart DateEnd DateStatus albuterol (ProAir RespiClick) 90 mcg/act breath-activated inhaler every 4 (four) hoursActive ALPRAZolam (Xanax) 1 MG tablet 05/13/2023ctive amphetamine-dextroamphetamine (Adderall) 30 MG tablet Take 30 mg by mouth in the morning and 30 mg in the evening.Active ibuprofen 600 MG tablet every 8 (eight) hoursActive lidocaine (Lidoderm) 5 % patch apply 1 patch TO THE AFFECTED AREA DAILY. LEAVE ON FOR 12 HOURS AND THEN OFF FOR 12 HOURS.04/12/2023ctive ARIPiprazole (Abilify) 5 MG tablet Indications:Bipolar 1 disorder (HCC)Take 1 tablet (5 mg) by mouth Daily 30 tablet 01/24/2024ctive FLUoxetine (PROzac) 40 MG capsule Indications:Bipolar 1 disorder (HCC)Take 1 capsule (40 mg) by mouth Daily 30 capsule 01/24/2024ctive albuterol HFA 90 mcg/act inhaler inhale 2 puffs by mouth and INTO THE LUNGS if needed every 4 hours02/19/2024 Active triamcinolone (Kenalog) 0.1 % ointment Indications:Vulvar irritationApply topically 2 (two) times a day 15 g ctive dicyclomine (Bentyl) 20 MG tablet Take 20 mg by mouth 4 (four) times a day as ujiyrk9011/29/2024tive ondansetron (Zofran) 4 MG tablet Take by mouth every 8 (eight) hours if needed for nausea or gnxdizzg17/02/2025 Active Active Problems No known active problems Family History Medical HistoryRelationNameCommentsCancerFather's BrotherHeart attackFather's BrotherCancerMaternal GrandmotherCancerMotherHeart attackPaternal Grandfather RelationNameStatusCommentsFatherDeceasedFather's BrotherMaternal Grandmother MotherAlivePaternal Grandfather Social History Tobacco UseTypesPacks/DayYears UsedDateSmoking Tobacco: Every DayCigarettes Smokeless Tobacco: Never Tobacco Cessation:Ready to Q uit: Not Asked; Counseling Given: Not Answered Alcohol UseStandard Drinks/WeekCommentsNever0 (1 standard drink = 0.6 oz pure alcohol)PHQ-2AnswerDate RecordedPatient Health Questionnaire-2 Yhefe508 CommentsNoSex and Gender InformationValueDate RecordedSex Assigned at BirthNot on fileLegal NulMwijrh33/15/2023 6:44 PM EDTGender IdentityNot on file Sexual OrientationNot on file Last Filed Vital Signs Vital SignReadingTime TakenCommentsBlood Ofqsqdib277/8406 11:57 AM EDT Oldlj481104/24/2025 11:57 AM CNAOtquekbhuwo44.8 ??C (96.5 ??F)04/24/2025 11:57 AM EDTRespiratory Rvyc686806/21/2023 4:59 PM EDTOxygen Qrmysqivvk83%04/24/2025 11:57 AM EDTInhaled Oxygen Concentration--Prfwqa763 kg (296 lb)12/21/2024 12:58 PM EST Yqqxbn384 cm (5' 3 )03/31/2024 11:36 AM EDTBody Mass Index52.43003/31/2024 11:36 AM EDT Plan of Treatment Health MaintenanceDue DateLast DoneCommentsPneumococcal Vaccine: Pediatrics (0 to 5 Years) and At-Risk Patients (6 to 64 Years) (1 of 2 - PCV)2003 Anfftjyck82/14/2024COVID-19 Vaccine ( - season)2025Influenza Vaccine (#1)2025HPV/IqejxzUfrjktxgdarz60/11/2020Cervical Cancer Screening DiscontinuedPap DwibnJzhccjykxptl23/21/2021 Procedures Procedure NamePriorityDate/TimeAssociated DiagnosisCommentsTHINPREP TIS PAP AND HPV MRNA E6/E7 REFLEX HPV 16,18/45 (39143)Xmddkkz2808/17/2021 from Last 3 Months or Most Recently Relevant to Health Maintenance Results * THINPREP TIS PAP AND HPV MRNA E6/E7 REFLEX HPV 16,18/45 (64210) (08/17/2021) ComponentValueRef RangeTest MethodAnalysis TimePerformed AtPathologist SignatureCLINICAL INFORMATION:Hx of LSIL or higher Pap/Bx 11/18/17,HPV+[facility]LMP:None givenN[facility]S [facility]GACY EXTERNAL LABPREV. PAP:12/10/17- COLPO LUCAS III AND CISNOMS LEGACY EXTERNAL LABPREV. BX:None givenN[facility]TER[facility] LABSOURCE:CervixN[facility]GAC[facility] EXTERNAL LABSTATEMENT OF ADEQUACY:SEE COMMENTNOMS LEGACY EXTERNAL LABComment: Satisfactory for evaluation. Endocervical/transformation zone component absent. INTERPRETATION/RESULT:Negative for intraepithelial lesion or malignancy.[facility] LABCOMMENT:SEE COMMENTN[facility] EXTERNAL LABComment: This case could not be evaluated with computer assisted technology. The slide was manually screened according to routine procedures. INFORMATION TECHNOLOGY PROGRAM MANAGER:SEE COMMENTNOMS LEGACY EXTERNAL LABComment: BH, CT(ASCP) CT screening location: [place] [address]. REVIEW INFORMATION TECHNOLOGY PROGRAM MANAGER:SEE COMMENTNOMS LEGACY EXTERNAL LABComment: NNO, CT(ASCP) CT screening location: [place] [address]. COMMENTSEE COMMENTNOM[address] [facility]TER[facility] LABComment: EXPLANATORY NOTE: The Pap is a screening test for cervical cancer. It is not a diagnostic test and is subject to false negative and false positive results. It is most reliable when a satisfactory sample, regularly obtained, is submitted with relevant clinical findings and history, and when the Pap result is evaluated along with historic and current clinical information. HPV MRNA E6/E7Not DetectedNot DetectedNOFERRY COUNTY MEMORIAL [facility] EXTERNAL LABComment: Methodology: Medical Office Administrator-Mediated Amplification This assay detects E6/E7 viral messenger RNA (mRNA) from 14 high-risk HPV types (16,18,31,33,35,39,45,51,52,56,58,59,66,68). The analytical performance characteristics of this assay have been determined by [facility]. The modifications have not been cleared or approved by the FDA. This assay has been validated pursuant to the CLIA regulations and is used for clinical purposes. For additional information, please refer to http://education.[employer]/faq/OLV530z4 (This link if provided for information/ educational purposes only.) NO COLLECTION DATE RECEIVED. WE HAVE USED THE DATE THE SPECIMEN WAS RECEIVED BY THIS LABORATORY THE COLLECTION DATE. IF THIS IS INCORRECT, PLEASE CONTACT CLIENT SERVICES. PHONE NUMBER: [phone] Specimen (Source)Anatomical Location / LateralityCollection Method / Volume Collection TimeReceived Time08/17/2021 Narrative Authorizing ProviderResult TypeResult StatusRichard A Visci DOECW LABSFinal ResultPerforming OrganizationAddressCity/State/ZIP CodePhone Number [facility] from Last 3 Months or Most Recently Relevant to Health Maintenance [place] [address] Care Teams Team MemberRelationshipSpecialtyStart DateEnd Date Unallocated, Noms Provider, [address] [place] [address] PCP - GeneralFamily Medicine01/24/24
--- OUTSIDE RECORDS SUMMARY | 2025-10-05 01:04 | XMS_ITS | Clinical Summary ---
Author Organization [facility] Address [facility] [id number] [place] [address] Care Team Providers Care Miller Head Wet Process Name Role Phone No Pcp, No Pcp Primary Care Provider Unavailabl e Allergies Active AllergyReactionsCriticalityNoted DateCommentsCodeineOther (See Comments), QjuqXar8109/07/2020 Itchy skin per patient Latex09/30/2025Peach (Prunus Persica)Hives,ViopHkd9209/07/2020Penicillamine 12/21/2024 Other Reaction(s): Unknown AulaazqedbjChwzEeb83/25/2023Sulfamethoxazole-BadulvnwvlidFtewHnx65/25/2023 Medications MedicationSigDispense QuantityRefillsLast FilledStart DateEnd DateStatus ARIPiprazole (ABILIFY) 10 mg tablet Take 1 tablet (10 mg total) by mouth in the morning.Active acetaminophen (TYLENOL EXTRA STRENGTH) 500 mg tablet Take 2 tablets (1,000 mg total) by mouth every 6 (six) hours as needed for pain, headaches or fever. 30 tablet 5Active guaiFENesin (ROBITUSSIN) 100 mg/5 mL syrup Take 20 mL (400 mg total) by mouth every 4 (four) hours as needed for cough. 60 mL 5Active Encounters DateTypeDepartmentCare KfteMkwibopeerl24/04/2025 1:35 AM EST - 09/30/2025 3:07 AM [facility] [address] [place] [id number] David Khan MD Upper respiratory tract infection, unspecified type (Primary Dx) Discharge Disposition: Home09/30/2025Travelfrom Last 3 Months Social History Tobacco UseTypesPacks/DayYears UsedDateSmoking Tobacco: Never AssessedChildcare AnswerDate RnwxcoloXcmcvoespKtxsziz64/12/2019EmploymentAnswerDate Recorded GezchyrwpqPwlwujv82/12/2019Hunger ScreeningAnswerDate RecordedWithin the past 12 months we worried whether our food would run out before we got money to buy more.Never True09/30/2025Within the past 12 months the food we bought just didn't last and we didn't have money to get more.Never True09/30/2025Purpose - LifeAnswerDate RecordedPurpose and direction in piyiWeculeh88/11/2021 CommentsNoSex and Gender InformationValueDate RecordedSex Assigned at BirthNot on fileLegal DgzVzwhqw05/04/2015 11:24 PM EDTGender IdentityNot on fileSexual OrientationNot on file Last Filed Vital Signs Vital SignReadingTime TakenCommentsBlood Zsnfkedz666/6409/30/2025 1:47 AM EST Iewur621909/30/2025 1:47 AM BSGXagkuqkgmke77.8 ??C (98.2 ??F)09/30/2025 1:47 AM ESTRespiratory Rhcb473512/01/2024 1:47 AM ESTOxygen Qttwkzcfyj33%09/30/2025 1:47 AM ESTInhaled Oxygen Concentration--Kmmtvp489.7 kg (286 lb)09/30/2025 1:47 AM MWBRpcpea022 cm (5' 3 )09/30/2025 1:47 AM ESTBody Mass Index50.6609/30/2025 1:47 AM EST Plan of Treatment Health MaintenanceDue DateLast DoneCommentsDepression Wadbrxnve89/14/1996Tobacco Hbyqpknsd79/14/1996Adult BMI Follow Up Plan2002DTaP,Tdap and Td Vaccines (1 - Tdap)2003Influenza Muwbwbs9206/28/2025dult BMI Kynajjzfh63/04/2026 09/30/2025 Medical Devices Not on file Procedures Procedure NamePriorityDate/TimeAssociated DiagnosisCommentsPOCT RAPID STREP A Smkvrsu5809/30/2025 2:06 AM EST SARS/FLU A+B/RSV BY NAAT/MOLECULAR (M4RT COLLECTION TUBE)STAT112/01/2024 2:03 AM EST XR CHEST 2 HWDOQML22/04/2025 2:01 AM EST from Last 3 Months Results * POCT rapid strep A (09/30/2025 2:06 AM EST)ComponentValueRef RangeTest Method Analysis TimePerformed AtPathologist SignaturePOC Rapid Strep ScreenNegative Oymmbizf32/04/2025 5:32 AM ESTUniversity Hospitals Geneva Medical Centerimen (Source)Anatomical Location / LateralityCollection Method / VolumeCollection TimeReceived Time09/30/2025 2:06 AM EST09/30/2025 5:32 AM EST Narrative Authorizing ProviderResult TypeResult StatusRyan Guthrie [facility] MDPOINT OF CARE TEST ORDERABLESFinal ResultPerforming OrganizationAddressCity/State/ZIP CodePhone Number [facility] [address] [place] [address], * SARS/FLU A+B/RSV by NAAT/Molecular (M4RT Collection Tube) (09/30/2025 2:03 AM EST)ComponentValueRef RangeTest MethodAnalysis TimePerformed AtPathologist SignatureFLU A NRGYwrsoqxoEjjpzpbx34/04/2025 2:46 AM ESTBLANCHARD [facility] HOSPITALFLU B RXGWjghghniKaohpvrq83/04/2025 2:46 AM ESTSHELBY MEMORIAL HOSPITALRSV BY XTGEgnrejijLprderqh68/04/2025 2:46 AM EST [facility] COV 2 BY PCRNot DetectedNot Detected 09/30/2025 2:46 AM [facility]ITALpecimen (Source) Anatomical Location / LateralityCollection Method / VolumeCollection Time Received TimeSwabNasopharyngeal structure / Fshrsgi4709/30/2025 2:03 AM EST 09/30/2025 2:08 AM EST Narrative [facility] - 09/30/2025 2:46 AM EST The Xpert [...] operators who are performing tests using either [employer] or [employer] systems and is limited to laboratories that [...] resolved with specimen repeat. Authorizing ProviderResult TypeResult StatusDavid Khan MDMICROBIOLOGY - GENERAL ORDERABLESFinal ResultPerforming OrganizationAddressCity/State/ZIP Code Phone Number [facility] [address] [place] [phone], * X-ray chest 2 views (09/30/2025 2:01 [...] 09/30/2025 2:05 AM Authorizing ProviderResult TypeResult StatusDavid Khan MDIMMehnaz DIAGNOSTIC IMAGING ORDERABLESFinal Result from Last 3 Months Insurance Care Teams Team MemberRelationshipSpecialtyStart DateEnd Date [place], [place] [address] [facility]
--- OUTSIDE RECORDS SUMMARY | 2025-10-05 01:04 | XMS_ITS | Clinical Summary ---
Author Organization [facility] Address [address] [place] [address] Care Team Providers Care Plasterer Maintenance Name Role Phone Unavailable Primary Care Provider Unavailabl e Source Comments The following information is NOT included in Care Everywhere downloads:Psychiatric notes, ECG results, Cardiac Rehab notes, Pulmonary Function notes, data from SmartForms (includes but not limited toPregnancy data,audiograms, eye exams, pre-surgical evaluation notes, well-child exam data).[facility] Social History Tobacco UseTypesPacks/DayYears UsedDateSmoking Tobacco: Never Assessed CommentsUnknownSex and Gender InformationValueDate RecordedSex Assigned at Not on fileLegal DlyLrkrqb45/30/2025 7:38 PM EDTGender IdentityNot on fileSexual OrientationNot on file Last Filed Vital Signs Vital SignReadingTime TakenCommentsBlood Zzhdphjp095/63004/26/2025 9:30 PM EDT Nldro7235 9:30 PM BSUNqxwqvceqal44.6 ??C (97.9 ??F)04/26/2025 7:42 PM EDTRespiratory Gdyc222804/26/2025 9:30 PM EDTOxygen Alnqesmbzf58%04/26/2025 9:30 PM EDTInhaled Oxygen Concentration--Weight--Height--Body Mass Index-- Plan of Treatment Health MaintenanceDue DateLast DoneCommentsHepatitis C Xspksekt97/14/2002Tdap Njcufax4006/10/2002Hepatitis A (HAV) Vaccine (optional start 19+ years)2003 Hepatitis B (HBV) Vaccine (1 of 3 - 19+ 3-dose series)2003HPV Vaccine (optional start 27-45 years)2011Pap Smear3111/07/2019Mammography 2024OVID-19 Vaccine ( - 2024-26 season)2025Influenza Vaccine (#1) 2025Shingles (RZV) Vaccine (1 of 2)2034HIV FpypQkmkqiocx81/30/2025 Pneumococcal Vaccine(s)Aged OutNo longer eligible based on patient's age to complete this topic Procedures Procedure NamePriorityDate/TimeAssociated DiagnosisCommentsHIV1 HIV2 AGAB SCRN STAT04/26/2025 7:53 PM EDT from Last 3 Months or Most Recently Relevant to Health Maintenance Results * HIV1 HIV2 AGAB SCRN (04/26/2025 7:53 PM EDT)ComponentValueRef RangeTest Method Analysis TimePerformed AtPathologist SignatureHIV Ag-Ab ScreenNon-Reactive Non-Calbjfew11/30/2025 10:29 PM EDBRYCE HOSPITAL PATHOLOGY LABORATORYComment:No laboratory evidence for HIV Infection. Negative result does not rule out acute HIV infection. Ifacute HIV infection is suspected, recommend ordering an HIV-1 RNA quanitification test.Specimen (Source)Anatomical Location / Laterality Collection Method / VolumeCollection TimeReceived TimeBloodBLOOD SPECIMEN / UnknownVenipuncture / Scqtxhe5504/26/2025 7:53 PM EDT04/26/2025 7:59 PM EDT Narrative [facility] - 04/26/2025 10:29 PM EDT HIV Information: ??[place] Rev. code 3701.243(E): This information has been disclosed to you from confidential records protected from disclosure by state law. ??You shall make no further disclosure of this information without the specific, written, and informed release of the individual to whom it pertains, or as otherwise permitted by state law. ??A general authorization for the release of medical or other information is not sufficient for the purpose of the release of HIV test results or diagnoses. Authorizing ProviderResult TypeResult StatusJeremkalin SWIFT HIV/HEP/SYPH TESTINGFinal ResultPerforming OrganizationAddressCity/State/ZIP CodePhone Number [facility] [address] [place] [address] from Last 3 Months or Most Recently Relevant to Health Maintenance Insurance [facility] [place] Address: [address] [place] [address]
--- OUTSIDE RECORDS SUMMARY | 2025-10-05 01:04 | XMS_ITS | CCD ---
Author Organization [facility] Care Team Providers Care Toxicologist Name Role Phone MAHDI, MARY Unavailable Unavailable MAHDI, MARY Unavailable Unavailable MAHDI, MARY Unavailable Unavailable MAHDI, MARY Unavailable Unavailable Annette Valladares II Primary Care Provider Gregorio SOSA, Latonya Unavailable DO Stephanie Babcock Attending Provider [phone] [facility] Primary Care Provider DO Farhat Castro Emergency Provider MD Jah Almonte Jr Emergency Provider DO Stephanie Babcock Admit Provider [facility] Rachell Murphy Emergency Provider DO Jesus Petersen Emergency Provider [facility] Primary Care Provider UZMA Resendiz Primary Care Provide r DO Farhat Castro Emergency Provider [phone] DO Nasir Garcia Emergency Provider [phone] DO Stephanie Babcock Attending Provider [facility] Primary Care Provider UZMA Resendiz Primary Care Provide r DO Farhat Castro Emergency Provider DO Nasir Garcia Emergency Provider [phone] MD Renato Kumar Emergency Provider MD Jah Almonte Jr Emergency Provider ANNETTE VALLADARES II Primary Care Unavail able [facility] Primary [facility] Rachell E Emergency Provider [phone] DO Nasir Garcia Emergency Provider [phone] [facility] Primary Care Provider LORENZO Garcia Emergency Provider MD Jah Almonte Jr Emergency Provider DO Keith Lugo [facility] Primary Care Provider [phone] DO Nasir Garcia Emergency Provider LORENZO Gracia Emergency Provider MD Jah Almonte Jr Emergency Provider DO Keith Lugo Emergency Provider [facility] R[facility]ll E Emergency Provider [phone] UZMA Resendiz Attending Provider DO Damien Rashid Emergency Provider DO Farhat Castro Emergency Provider MARKER ., DR THOMPSON Attending Unavailable MARKER ., DR THOMPSON Consulting Unavailable MARKER ., DR THOMPSON Admitting Unavailable MISC, DR PERSON Primary Care Unavailable ELVIS BAZZI Attending Unavailable ELVIS BAZZI Consulting Unavailable ELVIS BAZZI Admitting Unavailable MISC, DR PERSON Primary Care Unavailable [facility] Primary Care Provider DAHLIA ROMAN Primary Care Physician [phone] ROXY JACOBSEN Attending Unavailable LARISSA RESENDIZ Referring Unavailable MD Frank Willis Attending Provider UZMA Resendiz Referring Provider Frank Willis Unavailable Bandar Hart Unavailable [facility] Primary Care Provider LORENZO Bar Emergency Provider [phone] [facility] Rachell E Emergency Provider [facility] Primary Care Provider MD Renato Kumar Emergency Provider WallaecPayal alvaradon Unavailable UZMA Resendiz Attending Provider [facility] Primary Care Provider LORENZO Green[place] Emergency Provider [phone] DO Keith Lugo Emergency Provider Edy Bainloman SOSA, [place] Provider Primary Care Provi abel BRANDY BRODY Attending Unavailable NO PCP, NO PCP Primary Care Unavailable ViscStephanie saravia DO Attending Provider [facility] Primary Care Provider Keith Lugo DO Emergency Provider Edy pedersen [facility] Primary Care Unavaila ble Keith Lugo Attending Unavailable Keith Lugo Admitting Unavailable VISCI, STEPHANIE Mcdaniel Attending Unavailable HEMMERYANNI Attending Unavailable VISCI, STEPHANIE Mcdaniel Attending Unavailable VISCI, STEPHANIE Mcdaniel Referring Unavailable Unavailable Primary Care Provider Unavailabl e PROVIDER, UNKNOWN Admitting Unavailable PROVIDER, UNKNOWN Attending Unavailable PROVIDER, UNKNOWN Admitting Unavailable PROVIDER, UNKNOWN Attending Unavailable ENRIQUE FISCHER Attending Unavailable [phone], IP TEAM TRAUMA Consulting Unavail able PROVIDER, UNKNOWN Admitting Unavailable Allergies Allergy ClassificationReported Allergen(s)Allergy TypeDate of OnsetReaction(s) Facility (20 sources)Codeine; Translations: [CODEINE]Drug Dobdwlv14-19-2854Sbpvo: See Comments, Rash, Unknown, [facility] (20 sources)peach allergenic extract; Translations: [PEACH]Drug Allergy 21-06-1771Jqvl, [facility] (20 sources)Latex; Translations: [Latex]Allergy to azneyrlgb38-60-6706Vchhauos of skin (disorder), hives, Rash, [facility] (20 sources)Penicillins; Translations: [Penicillins]Allergy to substance 21-72-3425JqrwGklffyuyhProMedica Flower Hospital (20 sources)Sulfamethoxazole; Translations: [sulfamethoxazole]Drug Allergy 80-81-9202FkmtHqckmpzhbProMedica Flower Hospital (20 sources)Trimethoprim; Translations: [trimethoprim]Drug Yzbzzst84-75-6386XlnnUC [facility] (7 sources)AXE productsAllergy to eohwawczl59-38-9057YnxfvAetiqieqcAultman Alliance Community Hospital (12 sources)Morphine; Translations: [morphine]Drug Gnadyvu77-90-2507NhkpUniversity Hospitals [facility] (1 source)CodeineDrug AllergyThe [facility] (1 source)natural latex rubberDrug allergy (disorder)[facility] (1 source)PenicillinDrug AllergyThe [facility] (1 source)Sulfamethoxazole / TrimethoprimDrug AllergyThe [facility] (7 sources)traMADolDrug Xttsybj21-60-3798qipeatsRwvyfstjfWilson Health (8 sources)Sulfamethoxazole / TrimethoprimDrug Lxrfiwu08-15-4464FjnxPaxbiQuewey Other (5 sources)PeachAllergy to swybfqjcv19-80-6223CxqztColumbia [facility] (4 sources)penicillAMINEDrug Hrdhsld71-47-1395KHH[facility] (1 source)CodeineDrug Mrwkvgb70-58-6020TcqucmbceMer[facility] (1 source)traMADolDrug Apdsvqx63-33-4648VxjjptquzMercy Health – [facility] Repository Medications Current Medications MedicationDrug Class(es)DatesSig (Normalized)Sig (Original)[id number] 200 actuat albuterol 0.09 mg/actuat metered dose inhaler (20 sources)beta2-Adrenergic AgonistStart: 21-97-5591qnai 2 puff(s) by mouth every four hoursalbuterol HFA 90 mcg/act inhaler inhale 2 puffs by mouth and INTO THE LUNGS if needed every 4 hours02/19/2024 ActiveStart: 02-05-2023 End: 53-86-3053Xusfenzqb Sulfate 90 mcg/actuation aerosol powdr breath activated Discontinued 1 INH INHALATION EVERY 4-6 HOURS as needed for shortness of breath February 05, 2023 12:00am March 13, 2023 9:52amStart: 01-26-2020 End: 28-23-2596gwig 1 puff(s) by inhalation every four to six hours as needed for wheezingAlbuterol Sulfate (Proventil Hfa) 90 mcg/actuation Hfa Aerosol Inhaler Discontinued 2 PUFF INHALATION EVERY 4-6 HOURS as needed for Shortness Of Breath Or Wheezing April 07, 2022 12:00am May 29, 2022 10:23pm with spaceralbuterol (ProAir RespiClick) 90 mcg/act breath-activated inhaler every 4 (four) hours ActiveALPRAZolam 1 mg oral tablet (20 sources)BenzodiazepineStart: 73-09-3868ZGZBNDwrkf (Xanax) 1 MG tablet 05/13/2023 ActiveStart: 35-86-9760ecor 1 tablet by mouth every eight hoursXanax 1 MG 1 tablet Orally Three times a day Jan, ActiveComment on above:Take 1 mg by mouth as needed. ARIPiprazole 5 mg oral tablet (20 sources)Atypical AntipsychoticStart: 87-24-5953tdaj 1 tablet by mouth once dailyARIPiprazole (Abilify) 5 MG tablet Indications: Bipolar 1 disorder (HCC) Take 1 tablet (5 mg) by mouth Daily 30 tablet 01/24/2024 ActiveStart: 06-25-2022 take 5 mg by mouth once dailyAripiprazole Active 5 MG PO Daily June 25, 2022 12:00amStart: 97-81-5661wfqk 5 mg by mouth once dailyAripiprazole Active 5 MG PO Daily June 25, 2022 12:00amStart: 01-18-2018 End: 38-80-0661gdcm 1 tablet by mouth once daily in the morningAripiprazole (Abilify) 10 mg Tablet Discontinued 10 MG PO Every morning January 18, 2018 12:00am June 25, 2022 11:16amAbilify ActiveComment on above:Take 10 mg by mouth once daily.benzonatate 200 mg oral capsule (5 sources)Non-narcotic AntitussiveStart: 79-98-2444buzg 1 capsule by mouth three times daily as needed for coughBenzonatate 200 mg capsule Active 200 MG PO Three times daily as needed for cough August 04, 2023 12:00amciclopirox 7.7 mg/ml topical cream (2 sources)Start: 12-21-2024 End: 32-03-3611oobftnrmnq (Loprox) 0.77 % cream Indications: Vulvar irritation , Tinea cruris Apply topically 2 (two) times a day for 14 days 90 g 1 12/21/2024 01/04/2025 Activeclindamycin 150 mg oral capsule (2 sources)Lincosamide AntibacterialStart: 72-45-3678fsue 2 capsules by mouth every six hoursClindamycin Hcl 150 mg capsule Active 300 MG PO Q6H 80 February 22, 2024 12:00amStart: 88-66-4147diep 300 mg by mouth every six hours Clindamycin Hcl Active 300 MG PO Q6H 80 February 22, 2024 12:00am cyclobenzaprine hydrochloride 10 mg oral tablet (20 sources)Muscle RelaxantStart: 98-23-4331xpqt 1 tablet by mouth three times daily as needed for muscle spasmsCyclobenzaprine 10 mg tablet Active 10 MG PO Three times daily as needed for Muscle Spasm November 15, 2023 1:00amStart: 08-04-2022 End: 87-58-3491nkeu 1 tablet by mouth three times daily as needed for muscle spasmsCyclobenzaprine 5 mg tablet Discontinued 5 MG PO Three times daily as needed for muscle spasm August 04, 2022 12:00am December 05, 2022 11:42pm Start: 07-14-2022 End: 77-08-0196nmld 1 tablet by mouth three times daily as needed for muscle spasmsCyclobenzaprine 10 mg tablet Discontinued 10 MG PO Three times daily as needed for Muscle Spasm July 14, 2022 12:00am December 05, 2022 11:42pmdicyclomine hydrochloride 20 mg oral tablet (4 sources)AnticholinergicStart: 78-44-3351pcsi 1 tablet by mouth four times daily as neededdicyclomine (Bentyl) 20 MG tablet Take 20 mg by mouth 4 (four) times a day as needed 11/29/2024 Activefluconazole 150 mg oral tablet (2 sources)Azole AntifungalStart: 12-21-2024 End: 99-93-1042jieqcpsbmsf (Diflucan) 150 MG tablet Indications: Vulvar irritation , Tinea cruris Take 1 tablet (150 mg) by mouth 1 (one) time per week for 4 doses For 4 weeks 4 tablet 12/21/2024 01/12/2025 ActiveFLUoxetine 40 mg oral capsule (20 sources)Serotonin Reuptake InhibitorStart: 09-83-1345gopv 1 capsule by mouth once dailyFLUoxetine (PROzac) 40 MG capsule Indications: Bipolar 1 disorder (HCC) Take 1 capsule (40 mg) by mouth Daily 30 capsule 01/24/2024 ActiveStart: 12-06-2017 End: 90-97-8109cgxz 1 capsule by mouth once dailyFluoxetine (Prozac) 40 mg Capsule Discontinued 40 MG PO Daily January 18, 2018 12:00am July 6:11pmStart: 10-76-3501gnea 2 capsules by mouth every twenty-four hoursPROzac 20 MG 2 capsule in the morning Orally Once a day for 30 day(s) Jan, Active Start: 07-36-3445zheq 20 mg by mouth once dailyProzac 20 mg, Oral, Daily, Refills(s) 0 Start Date: 02/01/12 Status: OrderedComment on above:Take 40 mg by mouth once daily. ibuprofen 800 mg oral tablet (20 sources)Nonsteroidal Anti-inflammatory DrugStart: 39-62-6942wfyk 1 tablet by mouth three times daily as needed for painIbuprofen 800 mg tablet Active 800 MG PO Three times daily as needed for Pain November 1541:00amStart: 07-14-2022 End: 91-21-3396ahtp 1 tablet by mouth three times daily as needed for pain Ibuprofen 800 mg tablet Discontinued 800 MG PO Three times daily as needed for Pain September 07, 2022 1:00am December 05, 2022 11:43pmStart: 07-09-2022 End: 69-78-9704ivdo 4 tablets by mouth every twenty-four hours for painIbuprofen 600 mg tablet Discontinued 600 MG PO Every 6 hours as needed for pain July 09, 2022 12:00am December 05, 2022 11:43pm do not exceed 4 doses in a 24 hour periodStart: 02-04-2018 End: 51-58-8003Wchfwjdce 600 mg tablet Discontinued 600 MG PO every 6 to 8 hours as needed for fever or pain February 04, 2018 12:00am July 14, 2022 10:19pmibuprofen 600 MG tablet every 8 (eight) hours ActiveComment on above:Take 1 tablet by mouth every 6 hours as needed for Pain.lidocaine 0.05 mg/mg medicated patch (20 sources)Antiarrhythmic, Amide Local AnestheticStart: 55-66-5646luozl 1 dose transdermal route once dailylidocaine (Lidoderm) 5 % patch apply 1 patch TO THE AFFECTED AREA DAILY. LEAVE ON FOR 12 HOURS AND THEN OFF FOR 12 HOURS. 04/12/2023 ActiveStart: 76-66-3645Mfdcukscx 5 % 1 patch to skin remove after 12 hours Externally Once a day for 30 days Mar, ActiveStart: 09-24-2022 End: 63-92-2376zhctw 1 dose topically once daily as needed for painLidocaine 5 % adhesive patch,medicated Discontinued 1 PATCH TOPICAL Daily as needed for pain September 24, 2022 1:00am December 05, 2022 11:43pm leave on most painful area for up to 12 hrsnystatin 100 unt/mg topical ointment (7 sources)Polyene AntifungalStart: 05-07-2024 End: 32-78-4030vaioicxi (Mycostatin) ointment Indications: Vulvar irritation Apply topically 2 (two) times a day Use in combination with Triamcinolone equal amounts twice daily as needed 15 g 1 05/07/2024 05/07/2025 ActiveStart: 11-07-8680Zvqpdnnm 100,000 unit/gram cream Active 1 APPLIC TOPICAL Twice daily 15 7 March 31, 2024 12:00amondansetron 4 mg oral tablet (20 sources)Serotonin-3 Receptor AntagonistStart: 52-70-8751ljlmubbaxnh (Zofran) 4 MG tablet Take by mouth every 8 (eight) hours if needed for nausea or vomitin g 11/29/2024 ActiveStart: 12-28-2022 End: 85-61-6022tcbv 1 tablet by mouth every eight hours as needed for nausea and vomitingOndansetron Hcl 4 mg tablet Discontinued 4 MG PO Q8H as needed for nausea and vomiting 12 4 December 28, 2022 1:00am January 15, 2023 1:28amStart: 10-27-2021 End: 51-29-6127rknh 1 tablet by mouth four times daily as needed for nausea and vomitingOndansetron 4 mg tablet,disintegrating Discontinued 4 MG PO Four times daily as needed for nausea and vomiting October 27, 2021 1:00am February 13, 2022 5:45pmStart: 08-22-8362dari 2 tablets by mouth once daily as needed Zofran 4 mg 2 tablets Orally Once a day for 10 day(s) Apr, Not-Taking/PRNpredniSONE 50 mg oral tablet (20 sources)Start: 38-59-8642woqw 1 tablet by mouth once dailyPrednisone 50 mg tablet Active 50 MG PO Daily 4 August 04, 2023 12:00amStart: 08-04-2022 End: 73-43-4870cqdz 1 tablet by mouth once dailyPrednisone 50 mg tablet Discontinued 50 MG PO Daily 5 August 04, 2022 12:00am December 05, 2022 11:43pmStart: 01-13-2019 End: 18-18-6540flvi 3 tablets by mouth once dailyPrednisone 20 mg tablet Discontinued 60 MG PO Daily 15 January 13, 2019 12:00am January 17, 2019 1 2:00am January 18, 2019 12:03amStart: 01-13-2019 End: 61-39-7427ttdj 60 mg by mouth once dailyPrednisone Discontinued 60 MG PO Daily 15 January 13, 2019 12:00am January 18, 2019 12:03amtriamcinolone acetonide 0.001 mg/mg topical ointment (5 sources)CorticosteroidStart: 88-84-7583brytpxufojirg (Kenalog) 0.1 % ointment Indications: Vulvar irritation Apply topically 2 (two) timesa day 15 g 1 05/07/2024 Active Completed/Discontinued Medications MedicationDrug Class(es)DatesSig (Normalized)Sig (Original)acetaminophen 325 mg / HYDROcodone bitartrate 5 mg oral tablet (20 sources)Opioid AgonistStart: 07-09-2022 End: 64-96-9899renl 1 tablet by mouth every six hours as needed for pain Hydrocodone-Acetaminophen 5-325 mg tablet Discontinued 1 TAB PO Q6H as needed for pain 12 July 09, 2022 December 05, 2022 11:43pmStart: 08-10-2018 HYDROcodone-acetaminophen (NORCO) 5-325 mg per tabletStart: 35-47-0410mxra 1 tablet by mouth twice daily as needed for painVicodin HP 660 mg-10 mg Tab 1 tab(s), Oral, BID PRN for pain, Refill(s) 0 Start Date: 05/16/12 Status: Ordered amoxicillin 875 mg oral tablet (10 sources)Penicillin-class AntibacterialStart: 01-15-2023 End: 82-43-8821gdtn 1 tablet by mouth twice dailyAmoxicillin 875 mg tablet Discontinued 875 MG PO Twice daily January 15, 2023 12:00am March 18, 2023 11:27am FOR 10 DAYS.amphetamine aspartate 7.5 mg / amphetamine sulfate 7.5 mg / dextroamphetamine saccharate 7.5 mg / dextroamphetamine sulfate 7.5 mg oral tablet (20 sources)Central Nervous System StimulantStart: 01-18-2018 End: 50-37-5611czbp 1 tablet by mouth twice daily as neededDextroamphetamine- Amphetamine (Adderall) 30 mg Tablet Discontinued 30 MG PO Twice daily as needed for ADD January 18, 2018 12:00am January 15, 2023 1:30amStart: 36-86-8711xiev 1 capsule by mouth every twelve hoursAdderall XR 30 mg 1 capsule Orally bid Jan, ActiveStart: 09-25-7194bdfd 30 mg by mouth once dailyAdderall 30 mg, Oral, Daily, Refill(s) 0 Start Date: 02/01/12 Status: OrderedComment on above:Take 30 mg by mouth twice daily.atorvastatin 20 mg oral tablet (10 sources)HMG-CoA Reductase InhibitorStart: 01-15-2023 End: 62-16-0666oxql 1 tablet by mouth once dailyAtorvastatin 20 mg tablet Discontinued 20 MG PO Daily January 15, 2023 12:00am May 12, 2023 4:17pm azithromycin 250 mg oral tablet (5 sources)Macrolide AntimicrobialStart: 05-12-2023 End: 44-21-4919gqaz 1 tablet by mouth once dailyAzithromycin 250 mg tablet Discontinued 250 MG PO Daily May 12, 2023 12:00am August 04, 2023 6:11pm baclofen 10 mg oral tablet (5 sources)gamma-Aminobutyric Acid-ergic AgonistStart: 37-76-3401exot 0.5 tablet by mouth three times daily at mealtimeBaclofen 10 MG 1/2 tablet with food or milk Orally Three times a day for 30 day(s) February, Not-Taking/PRNStart: 45-76-4520wxrbmjtv 5 mg, TID, Refills(s) 0 Start Date: 05/16/12 Status: Ordered brompheniramine maleate 0.4 mg/ml / dextromethorphan hydrobromide 2 mg/ml / pseudoephedrine hydrochloride 6 mg/ml oral solution (20 sources)alpha-Adrenergic Agonist, Uncompetitive B-msolfp-L-aspartate Receptor Antagonist, Sigma-1 AgonistStart: 10-27-2021 End: 59-51-2731bxpe 1 mL by mouth four times daily as needed Parbzlildctfmll-Uhtjgbjlt-Hh (Bromfed Dm) 2-30-10 mg/5 mL syrup Discontinued 5 ML PO Four times daily as needed for cold symptoms October 27, 2021 1:00am February 13, 2022 5:45pmcephalexin 500 mg oral capsule (20 sources)Cephalosporin AntibacterialStart: 09-16-2021 End: 40-74-3375etdn 1 capsule by mouth every eight hoursCephalexin 500 mg Capsule Discontinued 500 MG PO Q8H 21 September 16, 2021 1:00am February 13, 2022 5:45pmStart: 04-18-2018 End: 68-91-5527wztx 1 capsule by mouth twice dailyCephalexin (Keflex) 500 mg capsule Discontinued 500 MG PO Twice daily April 18, 2018 12:00am January 13, 2019 2:14pmdiclofenac sodium 75 mg delayed release oral tablet (8 sources)Nonsteroidal Anti-inflammatory DrugStart: 03-06-2023 End: 47-27-8284tmoy 1 tablet by mouth twice daily as needed for painDiclofenac Sodium 75 mg tablet,delayed release (DR/EC) Discontinued 75 MG PO Twice daily as needed for Pain March 06, 2023 12:00am May 12, 2023 4:17pmStart: 08-20-2018 apply 1 dose topically twice daily for paindiclofenac (FLECTOR) 1.3 % topical patch Apply 1 Patch as directed twice daily. As directed for lowback pain 30 Patch 1 08/20/2018 ActiveComment on above:Apply 1 Patch as directed twice daily. As directed for low back painferrous sulfate 325 mg delayed release oral tablet (20 sources)Start: 06-25-2022 End: 74-09-6837moin 1 tablet by mouth once daily as neededFerrous Sulfate 325 mg (65 mg iron) tablet,delayed release (DR/EC) Discontinued 325 MG PO Daily as n eeded for Fatigue June 25, 2022 12:00am December 24, 2022 2:58pmStart: 46-93-0818rnok 325 mg by mouth once dailyFerrous Sulfate Active 325 MG PO Daily June 25, 2022 12:00amStart: 56-34-8468dybj 325 mg by mouth once dailyFerrous Sulfate Active 325 MG PO Daily June 25, 2022 12:00amgabapentin 600 mg oral tablet (20 sources)Anti-epileptic AgentStart: 04-16-2018 End: 81-30-4935giov 1 tablet by mouth twice daily as needed for painGabapentin 600 mg Tablet Discontinued 600 MG PO Twice daily as needed for Pain April 16, 2018 12:00am December 24, 2022 2:58pmStart: 54-86-7877vyhs 1 capsule by mouth every eight hoursNeurontin 300 MG 1 capsule Orally Three times a day for 30 day(s) February, Not-Taking/PRNtake 2 capsules by mouth once dailygabapentin (NEURONTIN) 300 mg capsule Take 600 mg by mouth once daily. 0 ActiveComment on above:Take 600 mg by mouth once daily. 12 hr guaiFENesin 600 mg extended release oral tablet (9 sources)Start: 02-05-2023 End: 96-22-7257kkqh 1 tablet by mouth twice daily as needed for congestion Guaifenesin 600 mg tablet extended release 12hr Discontinued 600 MG PO Twice daily as needed for congestion February 05, 2023 12:00am August 04, 2023 6:11pmStart: 02-05-2023 End: 42-03-0739fgcw 600 mg by mouth twice dailyGuaifenesin Discontinued 600 MG PO Twice daily February 05, 2023 12:00am August 04, 2023 6:11pmiohexol (OMNIPAQUE) 350 MG/ML injection (1 source)Start: 04-26-2025 End: 80-99-0972mxsz 1 dose intravenously nfcl533 mL, Intravenous Push, Once at Radiology exam, 1 dose, Starting on Sat04/26/25 at 2024, Until Sat04/26/25 at 2017, Imaging Protocol Ordersketorolac tromethamine 10 mg oral tablet (20 sources)Nonsteroidal Anti-inflammatory Drug, Cyclooxygenase InhibitorStart: 01-10-2023 End: 76-18-6900iwsx 1 tablet by mouth every six hours as needed for pain Ketorolac 10 mg tablet Discontinued 10 MG PO Q6H as needed for pain January 10, 2023 12:00am 2022 1:18amStart: 09-24-2022 End: 45-79-6147wtjy 1 tablet by mouth every six hours as needed for pain Ketorolac 10 mg tablet Discontinued 10 MG PO Q6H as needed for pain September 24, 2022 1:00am December 05, 2022 11:43pmlevoFLOXacin 750 mg oral tablet (20 sources)Quinolone AntimicrobialStart: 02-23-2022 End: 67-13-6369zshr 1 tablet by mouth once dailyLevofloxacin 750 mg tablet Discontinued 750 MG PO Daily 7 February 23, 2022 12:00am May 29, 2022 10:23pmmedroxyPROGESTERone acetate 10 mg oral tablet (20 sources)ProgestinStart: 06-25-2022 End: 41-99-4704ohro 1 tablet by mouth once daily as neededMedroxyprogesterone (Provera) 10 mg tablet Discontinued 10 MG PO Daily as needed for heavy menses [facility] 2021 11:15am July 09, 2022 7:32amStart: 59-00-4683stfr 1 tablet by mouth once dailyMedroxyprogesterone (Provera) 10 mg tablet Active 10 MG PO Daily June 25, 2022 11:15amStart: 10-26-0388ujil 1 tablet by mouth once dailyMedroxyprogesterone (Provera) 10 mg tablet Active 10 MG PO Daily June 25, 2022 11:15amStart: 05-29-2022 End: 02-08-9676awvn 1 tablet by mouth once dailyMedroxyprogesterone (Provera) 10 mg tablet Discontinued 10 MG PO Daily 10 May 29, 2022 12:00am June 25, 2022 11:15ammeloxicam 7.5 mg oral tablet (20 sources)Nonsteroidal Anti-inflammatory DrugStart: 06-25-2022 End: 93-03-5269pjrv 1 tablet by mouth once daily as needed for painMeloxicam 7.5 mg Tablet Discontinued 7.5 MG PO Daily as needed for Pain June 25, 2022 12:00am December 24, 2022 2:58pm On Hold: Resume on 07/16/22. Hold meloxicam while taking the ibuprofenStart: 03-85-4766vais 1 tablet by mouth once daily Meloxicam (Mobic) 7.5 mg Tablet Active 7.5 MG PO Daily June 25, 2022 12:00am Start: 35-51-9733fmlr 1 tablet by mouth once dailyMeloxicam (Mobic) 7.5 mg Tablet Active 7.5 MG PO Daily June 25, 2022 12:00amStart: 04-16-2018 End: 49-00-0010jstd 1 tablet by mouth once dailyMeloxicam (Mobic) 15 mg Tablet Discontinued 15 MG PO Daily April 16, 2018 12:00am May 3028:54amStart: 47-69-6242hkjj 1 tablet by mouth once dailymeloxicam (MOBIC) 7.5 mg tablet Take 7.5 mg by mouth once daily. 0 12/18/2017 ActiveComment on above:Take 7.5 mg by mouth once daily. methylPREDNISolone 4 mg oral tablet (14 sources)CorticosteroidStart: 03-06-2023 End: 12-67-2864yiln 1 tablet by mouth onceMethylprednisolone (Medrol (Wolfgang)) 4 mg tablets,dose pack Discontinued 1 dose pk PO per package directions March 06, 2023 12:00am March 18, 2023 11:27amStart: 58-18-0371Mlxfdr 4 MG as directed Orally February, ActiveMULTIVIT-MINERALS/FERROUS FUM (MULTI VITAMIN ORAL) (1 source)MULTIVIT-MINERALS/FERROUS FUM (MULTI VITAMIN ORAL) Take by mouth once daily. 0 ActiveComment on above:Take by mouth once daily.24 hr nicotine 0.875 mg/hr transdermal system (4 sources)Cholinergic Nicotinic AgonistStart: 12-55-2226rvsvk 1 dose transdermal route once daily as neededNicoderm CQ 21 MG/24HR 1 patch to skin Transdermal Once a day for 30 day(s) Jun, Not-Taking/PRNnitrofurantoin, macrocrystals 25 mg / nitrofurantoin, monohydrate 75 mg oral capsule (4 sources)Nitrofuran AntibacterialStart: 54-51-6166ngca 1 capsule by mouth every twelve hoursMacrobid 100 mg 1 capsule with food Orally every 12 hrs for 10 days Sep, Not-Taking/PRNNorethindrone Ac-Eth Estradiol (Ana 1.5/30 (21)) 1.5-30 mg-mcg tablet (20 sources)Start: 06-04-2022 End: 22-23-4233sxdl 3 tablets by mouth once daily as neededNorethindrone Ac-Eth Estradiol (Ana 1.5/30 (21)) 1.5-30 mg-mcg tablet Discontinued 3 TAB PO Dailyas needed for heavy menses June 04, 2022 12:00am July 09, 2022 7:32am Start: 06-04-2022 End: 71-72-4763rfst 3 tablets by mouth once dailyNorethindrone Ac-Eth Estradiol (Ana 1.5/30 (21)) 1.5-30 mg-mcg tablet Discontinued 3 TAB PO DailyAugus2021 11:00pm July 09, 2022 6:32amStart: 06-04-2022 End: 05-53-5777yyjy 3 tablets by mouth once dailyNorethindrone Ac-Eth Estradiol (Ana 1.5/30 (21)) 1.5-30 mg-mcg tablet Discontinued 3 TAB PO DailyAugus2021 12:00am July 09, 2022 7:32amStart: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 (Bld) [#/Vol]10.0 10*3/uL3.8-11.6FSelect Medical Specialty Hospital - Cincinnati NorthpH Test strip (U)Ordered By: Keith Lugo on 77-26-7679gR (U)5.5 [pH]5.0-9.0 [facility] HospitalHepatitis B virus surface Ag [Presence] in Serum or Plasma by ImmunoassayOrdered By: Larissa Resendiz on 82-71-8342MZJ surface Ag IA QlNegativeNegativeMercy Health – The Jewish HospitalHepatitis C virus IgG Ab [Presence] in Serum or Plasma by ImmunoassayOrdered By: Larissa Resendiz on 52-79-1547JPI IgG IA QlNon-ReactiveNon ReactiveMercy Health – The Jewish HospitalNo Panel InformationOrdered By: Larissa Resendiz on 02-19-2024 Hepatitis A IgM AntibodyNegativeNegativeMercy Health – [facility] Hospital Hepatitis B Core IgM AntibodyNegativeNegativeMercy Health – [facility] Hospital Hepatitis C InterpretationSee comment.[facility] HospitalComment on above:Not infected with HCV unless early or acute infection issuspected (which may be delayed in an immunocompromisedindividual), or other evidence exists to indicate HCVinfection.Performed at: - Lab[address] [id number] Director: Rell Hernandez PhD, Phone: [phone] Alanine aminotransferase [Enzymatic activity/volume] in Serum or PlasmaOrdered By: Renato Kumar on 54-73-2640NQP [Catalytic activity/Vol]21 U/L7-52[facility] HospitalAlbumin [Mass/volume] in Serum or Plasma by Bromocresol green (BCG) dye binding methoOrdered By: Renato Kumar on 74-98-2943Fqebcdz BCG dye [Mass/Vol]4.0 g/dL3.5-5.7FSelect Medical Specialty Hospital - Cincinnati NorthAlkaline phosphatase [Enzymatic activity/volume] in Serum or PlasmaOrdered By: Renato Kumar on 87-55-5821PMD [Catalytic activity/Vol]102 U/I50-721QcjbomyyoMercy Health – The Jewish HospitalAspartate aminotransferase [Enzymatic activity/volume] in Serum or Plasma Ordered By: Renato Kumar on 97-59-6560CUI [Catalytic activity/Vol]16 U/L13-39 [facility] HospitalBasophils Auto (Bld) [#/Vol]Ordered By: Renato Kumar on 52-05-3699Vbtmcfizl (Bld) [#/Vol]0.1 10*3/uL0.0-0.2FSelect Medical Specialty Hospital - Cincinnati NorthBasophils/100 WBC Auto (Bld)Ordered By: Renato Kumar on 11-15-2023 Basophils/100 WBC (Bld)0.9 %.[facility] HospitalBilirubin Test strip Ql (U)Ordered By: Renato Kumar on 97-91-4294Ovnrrhife Ql (U)NegativeNegative [facility] HospitalBilirubin.total [Mass/volume] in Serum or PlasmaOrdered By: Renato Kumar on 84-15-5282Eokplxyan [Mass/Vol]0.2 mg/dL0.3-1.0 [facility] HospitalCalcium [Mass/volume] in Serum or PlasmaOrdered By: Renato Kumar on 25-89-1058Lofrbwu [Mass/Vol]8.9 mg/dL8.6-10.3FSelect Medical Specialty Hospital - Cincinnati NorthCarbon dioxide, total [Moles/volume] in Serum or Plasma Ordered By: Renato Kumar on 51-79-2031BT1 [Moles/Vol]27.0 mmol/L21.0-31.0[facility] HospitalChloride [Moles/volume] in Serum or PlasmaOrdered By: Renato Kumar on 86-42-9667Wircaesf [Moles/Vol]108 mmol/I47-523GucppuhlvMercy Health – The Jewish HospitalColor Auto (U)Ordered By: Renato Kumar on 74-99-5238Vhjbo (U)Yellow YellowMercy Health – The Jewish HospitalCreatinine [Mass/volume] in Serum or PlasmaOrdered By: Renato Kumar on 52-24-4465Vhwueamjhh [Mass/Vol]0.64 mg/dL 0.60-1.20[facility] HospitalEosinophils Auto (Bld) [#/Vol]Ordered By: Renato Kumar on 64-11-8256Cadpfzjyhhh (Bld) [#/Vol]0.1 10*3/uL0.0-0.45 [facility] HospitalEosinophils/100 WBC Auto (Bld)Ordered By: Renato Kumar on 81-95-9859Zenailuxkjm/100 WBC (Bld)0.9 %.[facility] HospitalErythrocyte distribution width Auto (RBC) [Ratio]Ordered By: Renato Kumar on 30-88-1170Cfhsadlvzbh distribution width (RBC) [Ratio]14.9 %11.9-15.3FSelect Medical Specialty Hospital - Cincinnati NorthGlobulin Calc (S) [Mass/Vol]Ordered By: Renato Kumar on 78-84-5888Rprvtsal (S) [Mass/Vol]2.6 g/dLMercy Health – The [facility] Hospital Glucose [Mass/volume] in Serum or PlasmaOrdered By: Renato Kumar on 11-15-2023 Glucose [Mass/Vol]87 mg/sG51-405LejtjxxixMercy Health – The Jewish HospitalComment on above:ADA recommended reference rangeRandom Glucose Reference Range is dependent on time and content of last meal. Glucose of more than 200 mg/dL in a nonstressed, ambulatory subject supports the diagnosisof Diabetes Mellitus.HCG ( test) IA.rapid Ql (U)Ordered By: Renato Kumar on 65-91-0127IYU ( test) Ql (U)NegativeMercy Health – The Jewish HospitalHematocrit Auto (Bld) [Volume fraction]Ordered By: Renato Kumar on 34-25-6519Rhoqrfpewn (Bld) [Volume fraction]42.2 %34.0-46.4FSelect Medical Specialty Hospital - Cincinnati NorthHemoglobin [Mass/volume] in BloodOrdered By: Renato Kumar on 51-03-6867Kkncsogqkk (Bld) [Mass/Vol]14.0 g/dL11.8-15.4FSelect Medical Specialty Hospital - Cincinnati NorthKetones Auto test strip (U) [Mass/Vol]Ordered By: Renato Kumar on 39-11-9576Lmktpbd (U) [Mass/Vol] NegativeNegativeMercy Health – The Jewish HospitalLeukocytes [#/volume] corrected for nucleated erythrocytes in Blood by Automated counOrdered By: Renato Kumar on 52-63-5327NWC corrected for nucl RBC Auto (Bld) [#/Vol]12.5 10*3/uL3.8-11.6 [facility] HospitalLipase [Enzymatic activity/volume] in Serum or PlasmaOrdered By: Renato Kumar on 87-32-2887Nirvga [Catalytic activity/Vol]14.0 U/L11.0-82.0[facility] HospitalLymphocytes Auto (Bld) [#/Vol] Ordered By: Renato Kumar on 06-79-5140Snoeswokgvu (Bld) [#/Vol]2.4 10*3/uL1.00-4.8 [facility] HospitalLymphocytes/100 WBC Auto (Bld)Ordered By: Renato Kumar on 74-68-1185Anzgvgrabdz/100 WBC (Bld)19.5 %.[facility] Auto (RBC) [Entitic mass]Ordered By: Renato Kumar on 17-15-0494TOV (RBC) [Entitic mass]28.1 pg24.7-34.3FTriHealthHC Auto (RBC) [Mass/Vol]Ordered By: Renato Kumar on 90-50-1621PCGN (RBC) [Mass/Vol]33.2 g/dL 32.0-35.0[facility] HospitalMCV Auto (RBC) [Entitic vol]Ordered By: Renato Kumar on 48-17-3628ATD (RBC) [Entitic vol]84.7 qX79-082QylsxfgjqMercy Health – The Jewish HospitalMonocyte distribution width [Entitic volume] in Blood by AutomatedOrdered By: Renato Kumar on 12-89-4372Rtnrdjbf distribution width Auto (Bld) [Entitic vol]17.23 %0.00-20.00[facility] HospitalMonocytes Auto (Bld) [#/Vol]Ordered By: Renato Kumar on 91-08-8314Yrwonnzad (Bld) [#/Vol]0.8 10*3/uL0.0-0.8[facility] HospitalMonocytes/100 WBC Auto (Bld) Ordered By: Renato Kumar on 60-38-4232Iojbncyxa/100 WBC (Bld)6.3 %.[facility] HospitalNeutrophils Auto (Bld) [#/Vol]Ordered By: Renato Kumar on 19-80-2527Likiraohjgv (Bld) [#/Vol]9.1 10*3/uL1.8-7.7FSelect Medical Specialty Hospital - Cincinnati NorthNeutrophils/100 WBC Auto (Bld)Ordered By: Renato Kumar on 11-15-2023 Neutrophils/100 WBC (Bld)72.4 %.[facility] HospitalNitrite Test strip Ql (U)Ordered By: Renato Kumar on 80-65-7498Usgnplj Ql (U)NegativeNegative [facility] HospitalNo Panel InformationOrdered By: Renato Kumar on 63-96-6709Rkxifssru GFR (CKD-EPI)> 60.0 mL/MinMercy Health – The Jewish Hospital Pharmacy Creatinine Clearance (Kiyd665.63[facility] Nucleated erythrocytes [Presence] in Blood by Automated countOrdered By: Renato Kumar on 51-66-9108Jctdrvskt RBC Auto Ql (Bld)0.1 /100{WBC}0-0.5FSelect Medical Specialty Hospital - Cincinnati NorthPlatelet mean volume Auto (Bld) [Entitic vol]Ordered By: Renato Kumar on 50-00-2680Jdcfmoaz mean volume (Bld) [Entitic vol]9.6 fL6.3-10.7 [facility] HospitalPlatelets Auto (Bld) [#/Vol]Ordered By: Renato Kumar on 81-59-0018Hnuyfdozg (Bld) [#/Vol]287 10*3/aD177-245NdvohoyfhMercy Health – The Jewish HospitalPotassium [Moles/volume] in Serum or PlasmaOrdered By: Renato Kumar on 81-98-3832Cdzvyddhf [Moles/Vol]4.0 mmol/L3.5-5.1FSelect Medical Specialty Hospital - [place] NorthProtein Auto test strip (U) [Mass/Vol]Ordered By: Renato Kumar on 11-15-2023 Protein (U) [Mass/Vol]NegativeNegativeMercy Health – The Jewish HospitalProtein [Mass/volume] in Serum or PlasmaOrdered By: Renato Kumar on 27-92-0779Jwxnrqh [Mass/Vol]6.6 g/dL6.4-8.9[facility] HospitalRBC Auto (Bld) [#/Vol] Ordered By: Renato Kumar on 31-00-9876SCM (Bld) [#/Vol]4.99 10*6/uL3.60-5.00 [facility] Campuserum or plasma albumin/globulin mass ratio Ordered By: Renato Kumar on 88-97-2310Itklovr/Globulin [Mass ratio]1.5 {ratio} [facility] Campuserum or plasma anion gap determinationOrdered By: Renato Kumar on 25-02-0083Ubkse gap [Moles/Vol]8.0 mmol/L6.0-15.0[facility] Campusodium [Moles/volume] in Serum or PlasmaOrdered By: Renato Kumar on 85-59-1542Ovbarw [Moles/Vol]139 mmol/W086-533KgxwyzzigWayne HealthCare Main Campuspecific gravity Auto test strip (U) [Rel density]Ordered By: Renato Kumar on 19-63-2514Rccxnrqr gravity (U) [Rel density]1.0261.001-1.030[facility] HospitalUrea nitrogen [Mass/volume] in Serum or PlasmaOrdered By: Renato Kumar on 57-22-7642Hsvn nitrogen [Mass/Vol]17 mg/dL7-25[facility] HospitalUrine clarity by refractometry automatedOrdered By: Renato Kumar on 12-46-5976Ucfdfmh Refractometry automated (U)ClearClearFSelect Medical Specialty Hospital - Cincinnati NorthUrine glucose measurement by automated test strip (mass/volume) Ordered By: Reanto Kumar on 33-54-0717Konddgp Auto test strip (U) [Mass/Vol]Normal mg/dLNoPremier Health Upper Valley Medical CenterUrine hemoglobin detection by automated test stripOrdered By: Renato Kumar on 29-62-1423Dptzicnbez Auto test strip Ql (U)NegativeNegativeMercy Health – The Jewish HospitalUrine leukocyte esterase detection by automated test stripOrdered By: Renato Kumar on 11-15-2023 Leukocyte esterase Auto test strip Ql (U)NegativeNegSelect Medical Specialty Hospital - Cleveland-FairhillUrobilinogen Auto test strip (U) [Mass/Vol]Ordered By: Renato Kumar on 57-90-2038Eamyowmkhdlf (U) [Mass/Vol]Normal mg/dLNoPremier Health Upper Valley Medical CenterWBC Auto (Bld) [#/Vol]Ordered By: Renato Kumar on 19-94-6823JAB (Bld) [#/Vol]12.5 10*3/uL3.8-11.6FSelect Medical Specialty Hospital - Cincinnati NorthpH Auto test strip (U)Ordered By: Renato Kumar on 88-19-6833kN (U)6.5 [pH]5.0-9.0[facility] HospitalCOVID CepheidOrdered By: Rachell Vang on 08-04-2023 SARS-CoV-2 (COVID-19) Ab IA QlNegativeNegativeMercy Health – [facility] Comment on above:This is a duplicate Cepheid Xpert Xpress CoV-2/Flu/RSV Plus RNA by RT-PCR result to be used for statistical tracking purpose only.SARS-CoV-2 (COVID-19) RNA JUDIT+probe Ql (Unsp spec)[facility] Basophils Auto (Bld) [#/Vol]Ordered By: Mark Bar on 64-32-2505Wlwqrlxxk (Bld) [#/Vol]0.1 10*3/uL0.0-0.2FSelect Medical Specialty Hospital - Cincinnati NorthBasophils/100 WBC Auto (Bld)Ordered By: Mark Bar on 52-08-9118Szkctovjo/100 WBC (Bld)1.3 %.[facility] HospitalCOVID- SOFIAOrdered By: Mark Bar on 52-66-4213LMVR-CoV+SARS-CoV-2 (COVID-19) Ag IA.rapid Ql (Resp)NegativeNegative [facility] HospitalComment on above:This is a duplicate Laura SARS Antigen (JESSICA) result to be used for statistical tracking purpose only.Calcium [Mass/volume] in Serum or PlasmaOrdered By: Mark Bar on 54-19-5240Fpidgbr [Mass/Vol]8.9 mg/dL8.6-10.3FSelect Medical Specialty Hospital - Cincinnati NorthCarbon dioxide, total [Moles/volume] in Serum or PlasmaOrdered By: Mark Bar on 05-12-2023 CO2 [Moles/Vol]24.0 mmol/L21.0-31.0[facility] HospitalChloride [Moles/volume] in Serum or PlasmaOrdered By: Mark Bar on 09-66-0053Kfjdkrkf [Moles/Vol]107 mmol/R86-940YureqnbauMercy Health – The Jewish HospitalCreatinine [Mass/volume] in Serum or PlasmaOrdered By: Mark Bar on 05-12-2023 Creatinine [Mass/Vol]0.55 mg/dL0.60-1.20[facility] Eosinophils Auto (Bld) [#/Vol]Ordered By: Mark Bar on 15-69-8091Txhboexambc (Bld) [#/Vol]0.1 10*3/uL0.0-0.45[facility] Eosinophils/100 WBC Auto (Bld)Ordered By: Mark Bar on 05-12-2023 Eosinophils/100 WBC (Bld)1.0 %.[facility] HospitalErythrocyte distribution width Auto (RBC) [Ratio]Ordered By: Mark Bar on 05-12-2023 Erythrocyte distribution width (RBC) [Ratio]15.5 %11.9-15.3FSelect Medical Specialty Hospital - Cincinnati NorthGlucose [Mass/volume] in Serum or PlasmaOrdered By: Makr Bar on 71-02-3148Nmtjfhw [Mass/Vol]92 mg/qD76-102TokrvxysjMercy Health – [facility] Hospital Comment on above:ADA recommended reference rangeRandom Glucose Reference Range is dependent on time and content of last meal. Glucose of more than 200 mg/dL in a nonstressed, ambulatory subject supports the diagnosisof Diabetes Mellitus. Hematocrit Auto (Bld) [Volume fraction]Ordered By: Mark Bar on 05-12-2023 Hematocrit (Bld) [Volume fraction]45.7 %34.0-46.4FSelect Medical Specialty Hospital - Cincinnati NorthHemoglobin [Mass/volume] in BloodOrdered By: Mark Bar on 05-12-2023 Hemoglobin (Bld) [Mass/Vol]15.2 g/dL11.8-15.4FSelect Medical Specialty Hospital - [facility] North Leukocytes [#/volume] corrected for nucleated erythrocytes in Blood by Automated counOrdered By: Mark Bar on 23-68-1401YKF corrected for nucl RBC Auto (Bld) [#/Vol]9.9 10*3/uL3.8-11.6FSelect Medical Specialty Hospital - Cincinnati NorthLymphocytes Auto (Bld) [#/Vol]Ordered By: Mark Bar on 32-35-2466Tdqdeppcptu (Bld) [#/Vol]2.2 10*3/uL1.00-4.8[facility] HospitalLymphocytes/100 WBC Auto (Bld)Ordered By: Mark Bar on 67-02-9334Efqhjcccpap/100 WBC (Bld)22.4 % .[facility] HospitalH Auto (RBC) [Entitic mass]Ordered By: Mark Bar on 19-75-7644XEM (RBC) [Entitic mass]27.9 pg24.7-34.3FSelect Medical Specialty Hospital - Cincinnati NorthMCHC Auto (RBC) [Mass/Vol]Ordered By: Mark Bar on 05-12-2023 MCHC (RBC) [Mass/Vol]33.2 g/dL32.0-35.0[facility] HospitalMCV Auto (RBC) [Entitic vol]Ordered By: Mark Bar on 99-88-2855TWA (RBC) [Entitic vol]84.1 cW08-532UhpdvcuqcMercy Health – The Jewish HospitalMonocyte distribution width [Entitic volume] in Blood by AutomatedOrdered By: Mark Bar on 05-12-2023 Monocyte distribution width Auto (Bld) [Entitic vol]19.20 %0.00-20.00[facility] HospitalMonocytes Auto (Bld) [#/Vol]Ordered By: Mark Bar on 17-94-5850Vbkewckyy (Bld) [#/Vol]0.6 10*3/uL0.0-0.8[facility] HospitalMonocytes/100 WBC Auto (Bld)Ordered By: Mark Bar on 05-12-2023 Monocytes/100 WBC (Bld)5.7 %.[facility] HospitalNeutrophils Auto (Bld) [#/Vol]Ordered By: Mark Bar on 94-63-6231Tnbrzxsezri (Bld) [#/Vol]6.9 10*3/uL1.8-7.7FSelect Medical Specialty Hospital - Cincinnati NorthNeutrophils/100 WBC Auto (Bld) Ordered By: Mark Bar on 11-59-1882Niybjydusmb/100 WBC (Bld)69.6 %.[facility] HospitalNo Panel InformationOrdered By: Mark Bar on 64-37-4958Esysswwfb GFR (CKD-EPI)> 60.0 mL/MinMercy Health – The Jewish Hospital Pharmacy Creatinine Clearance (Vkix982.95[facility] CampusARS Antigen (LFIA)[facility] HospitalNucleated erythrocytes [Presence] in Blood by Automated countOrdered By: Mark Bar on 27-06-6827Eugxtsjgk RBC Auto Ql (Bld)0.1 /100{WBC}0-0.5FSelect Medical Specialty Hospital - Cincinnati NorthPlatelet adequacy [Presence] in Blood by Light microscopyOrdered By: Mark Bar on 80-15-0513Zilcdcxif LM Ql (Bld)NormalNormalMercy Health – [facility] Platelet mean volume Auto (Bld) [Entitic vol]Ordered By: Mark Bar on 42-65-0341Wtwzstha mean volume (Bld) [Entitic vol]9.9 fL6.3-10.7FSelect Medical Specialty Hospital - Cincinnati NorthPlatelet morphology finding [Identifier] in BloodOrdered By: Mark Bar on 97-36-4068Qkvwagut morphology finding Nom (Bld)N/AFSelect Medical Specialty Hospital - Cincinnati NorthPlatelets Auto (Bld) [#/Vol]Ordered By: Mark Bar on 95-15-0858Eawallpiz (Bld) [#/Vol]245 10*3/hZ808-343GylmosxvyMercy Health – The Jewish HospitalPlatelets Large [Presence] in Blood by Light microscopyOrdered By: Mark Bar on 43-51-4683Bwfhrscmj Large LM Ql (Bld)SlightMercy Health – The Jewish HospitalPotassium [Moles/volume] in Serum or PlasmaOrdered By: Mark Bar on 10-53-6893Gifzwqslc [Moles/Vol]4.1 mmol/L3.5-5.1FSelect Medical Specialty Hospital - Cincinnati NorthRBC Auto (Bld) [#/Vol]Ordered By: Mark Bar on 45-82-6053QOF (Bld) [#/Vol]5.44 10*6/uL3.60-5.00[facility] HospitalRB morphologyOrdered By: Mark Bar on 61-75-6388FLQ morphology finding Nom (Bld)NormalNormalWayne HealthCare Main Campuserum or plasma anion gap determinationOrdered By: Mark Bar on 03-58-1929Wwogu gap [Moles/Vol]11.1 mmol/L6.0-15.0[facility] Campusodium [Moles/volume] in Serum or PlasmaOrdered By: Mark Bar on 63-23-3322Ycrsgs [Moles/Vol]138 mmol/L 136-145[facility] HospitalTroponin I.cardiac [Mass/volume] in Serum or Plasma by Detection limit <= 0.01 ng/Ordered By: Mark Bar on 81-68-5711Tqizccjm I.cardiac DL <= 0.01 ng/mL [Mass/Vol]2.8 pg/mL0.0-15.0 [facility] HospitalUrea nitrogen [Mass/volume] in Serum or Plasma Ordered By: Mark Bar on 47-59-5851Hgfr nitrogen [Mass/Vol]14 mg/dL7-25 [facility] HospitalWBC Auto (Bld) [#/Vol]Ordered By: Mark Bar on 78-97-7961QWH (Bld) [#/Vol]9.9 10*3/uL3.8-11.6FSelect Medical Specialty Hospital - Cincinnati NorthAlanine aminotransferase [Enzymatic activity/volume] in Serum or Plasma Ordered By: Jah Almonte on 76-66-6660YBK [Catalytic activity/Vol]17 U/L7-52 [facility] HospitalAlbumin [Mass/volume] in Serum or Plasma by Bromocresol green (BCG) dye binding methoOrdered By: Jah Almonte on 03-05-2023 Albumin BCG dye [Mass/Vol]4.2 g/dL3.5-5.7FSelect Medical Specialty Hospital - [facility] North Alkaline phosphatase [Enzymatic activity/volume] in Serum or PlasmaOrdered By: Jah Almonte on 71-91-4141GQN [Catalytic activity/Vol]87 U/U61-256EaavfhrupMercy Health – The Jewish HospitalAspartate aminotransferase [Enzymatic activity/volume] in Serum or PlasmaOrdered By: Jah Almonte on 27-43-2766XYR [Catalytic activity/Vol]14 U/B33-15NweajgmswMercy Health – The Jewish HospitalBasophils Auto (Bld) [#/Vol]Ordered By: Jah Almonte on 04-55-2886Vagsuqdxx (Bld) [#/Vol]0.1 10*3/uL 0.0-0.2FSelect Medical Specialty Hospital - [place] NorthBasophils/100 WBC Auto (Bld)Ordered By: Jah Almonte on 76-30-1828Xboqzzbnp/100 WBC (Bld)0.9 %.[facility] HospitalBilirubin.total [Mass/volume] in Serum or PlasmaOrdered By: Jah Almonte on 14-62-1263Scwplkhbl [Mass/Vol]0.3 mg/dL0.3-1.0[facility] HospitalCalcium [Mass/volume] in Serum or PlasmaOrdered By: Jah Almonte on 20-07-4884Ifxgvcc [Mass/Vol]8.7 mg/dL8.6-10.3FSelect Medical Specialty Hospital - [place] NorthCarbon dioxide, total [Moles/volume] in Serum or PlasmaOrdered By: Jah Almonte on 46-25-6890JV7 [Moles/Vol]25.5 mmol/L21.0-31.0[facility] HospitalChloride [Moles/volume] in Serum or PlasmaOrdered By: Jah Almonte on 46-12-5379Jkcztuut [Moles/Vol]107 mmol/M96-259ZegbtyrjyMercy Health – The Jewish HospitalCreatinine [Mass/volume] in Serum or PlasmaOrdered By: Jah Almonte on 90-52-3389Uiqejyjvms [Mass/Vol]0.60 mg/dL0.60-1.20[facility] HospitalEosinophils Auto (Bld) [#/Vol]Ordered By: Jah Almonte on 20-95-9949Nmarupnssbg (Bld) [#/Vol]0.1 10*3/uL0.0-0.45[facility] HospitalEosinophils/100 WBC Auto (Bld)Ordered By: Jah Almonte on 03-05-2023 Eosinophils/100 WBC (Bld)0.9 %.[facility] HospitalErythrocyte distribution width Auto (RBC) [Ratio]Ordered By: Jah Almonte on 03-05-2023 Erythrocyte distribution width (RBC) [Ratio]17.6 %11.9-15.3FSelect Medical Specialty Hospital - Cincinnati NorthGlobulin Calc (S) [Mass/Vol]Ordered By: Jah Almonte on 23-87-2143Qddfdhsf (S) [Mass/Vol]2.6 g/dLMercy Health – The [facility] Hospital Glucose [Mass/volume] in Serum or PlasmaOrdered By: Jah Almonte on 03-05-2023 Glucose [Mass/Vol]109 mg/bQ25-054CropghmxiMercy Health – The Jewish HospitalComment on above:ADA recommended reference rangeRandom Glucose Reference Range is dependent on time and content of last meal. Glucose of more than 200 mg/dL in a nonstressed, ambulatory subject supports the diagnosisof Diabetes Mellitus. Hematocrit Auto (Bld) [Volume fraction]Ordered By: Jah Almonte on 03-05-2023 Hematocrit (Bld) [Volume fraction]41.9 %34.0-46.4FSelect Medical Specialty Hospital - [place] NorthHemoglobin [Mass/volume] in BloodOrdered By: Jah Almonte on 03-05-2023 Hemoglobin (Bld) [Mass/Vol]13.7 g/dL11.8-15.4FSelect Medical Specialty Hospital - [facility] Leukocytes [#/volume] corrected for nucleated erythrocytes in Blood by Automated counOrdered By: Jah Almonte on 21-42-7752ISX corrected for nucl RBC Auto (Bld) [#/Vol]13.7 10*3/uL3.8-11.6FSelect Medical Specialty Hospital - Cincinnati NorthLymphocytes Auto (Bld) [#/Vol]Ordered By: Jah Almonte on 87-95-1980Jmsktfgcqvl (Bld) [#/Vol]2.6 10*3/uL1.00-4.8[facility] HospitalLymphocytes/100 WBC Auto (Bld)Ordered By: Jah Almonte on 09-21-5275Hzntxmhnuhw/100 WBC (Bld)18.9 % .[facility] HospitalMCH Auto (RBC) [Entitic mass]Ordered By: Jah Almonte on 12-53-7198BBD (RBC) [Entitic mass]26.7 pg24.7-34.3FTriHealthHC Auto (RBC) [Mass/Vol]Ordered By: Jah Almonte on 18-25-5763ZDMS (RBC) [Mass/Vol]32.7 g/dL32.0-35.0[facility] HospitalMCV Auto (RBC) [Entitic vol]Ordered By: Jah Almonte on 40-09-0185GJE (RBC) [Entitic vol]81.6 uJ27-684MegdijgdzMercy Health – The Jewish HospitalMagnesium [Mass/volume] in Serum or PlasmaOrdered By: Jah Almonte on 72-86-0076Afvndlydu [Mass/Vol]1.9 mg/dL1.9-2.7FSelect Medical Specialty Hospital - Cincinnati NorthMonocyte distribution width [Entitic volume] in Blood by AutomatedOrdered By: Jah Almonte on 74-90-4242Bcsjbhkv distribution width Auto (Bld) [Entitic vol]16.68 % 0.00-20.00[facility] HospitalMonocytes Auto (Bld) [#/Vol]Ordered By: Jah Almonte on 15-05-3802Temsdarfs (Bld) [#/Vol]0.7 10*3/uL0.0-0.8 [facility] HospitalMonocytes/100 WBC Auto (Bld)Ordered By: Jah Almonte on 94-37-3355Fzktulwhi/100 WBC (Bld)5.1 %.[facility] HospitalNeutrophils Auto (Bld) [#/Vol]Ordered By: Jah Almonte on 03-05-2023 Neutrophils (Bld) [#/Vol]10.2 10*3/uL1.8-7.7FSelect Medical Specialty Hospital [facility] North Neutrophils/100 WBC Auto (Bld)Ordered By: Jah Almonte on 03-05-2023 Neutrophils/100 WBC (Bld)74.2 %.[facility] HospitalNo Panel InformationOrdered By: aJh Almonte on 51-33-5166Sneuhliqn GFR (CKD-EPI)> 60.0 mL/MinMercy Health – The Jewish HospitalPharmacy Creatinine Clearance (Qepq960.80 [facility] HospitalNucleated erythrocytes [Presence] in Blood by Automated countOrdered By: Jah Almonte on 94-76-9738Uzvatwzbx RBC Auto Ql (Bld)0.0 /100{WBC}0-0.5FSelect Medical Specialty Hospital - [facility] NorthPlatelet adequacy [Presence] in Blood by Light microscopyOrdered By: Jah Almonte on 03-05-2023 Platelets LM Ql (Bld)NormalNormalMercy Health – The Jewish HospitalPlatelet mean volume Auto (Bld) [Entitic vol]Ordered By: Jah Almonte on 88-49-7029Essswatx mean volume (Bld) [Entitic vol]9.5 fL6.3-10.7FSelect Medical Specialty Hospital - [facility] North Platelet morphology finding [Identifier] in BloodOrdered By: Jah Almonte on 83-06-3153Zdghihoq morphology finding Nom (Bld)NormalNormalMercy Health – The Jewish HospitalPlatelets Auto (Bld) [#/Vol]Ordered By: Jah Almonte on 22-33-0407Ilgemlijd (Bld) [#/Vol]256 10*3/lK219-711SbpreykluMercy Health – The Jewish HospitalPotassium [Moles/volume] in Serum or PlasmaOrdered By: Jah Almonte on 60-73-0038Hvyudokzj [Moles/Vol]3.4 mmol/L3.5-5.1FSelect Medical Specialty Hospital - [facility] NorthProtein [Mass/volume] in Serum or PlasmaOrdered By: Jah Almonte on 84-06-6561Kayrafy [Mass/Vol]6.8 g/dL6.4-8.9[facility] HospitalRBC Auto (Bld) [#/Vol]Ordered By: Jah Almonte on 85-25-2382RJG (Bld) [#/Vol]5.13 10*6/uL3.60-5.00[facility] HospitalRB morphologyOrdered By: Jah Almonte on 51-52-6076SFX morphology finding Nom (Bld)NormalNoVan Wert County Hospitalerum or plasma albumin/globulin mass ratioOrdered By: Jah Almonte on 15-00-1708Kcxjprl/Globulin [Mass ratio]1.6 {ratio}[facility] Main Campuserum or plasma anion gap determinationOrdered By: Jah Almonte on 78-63-8511Cclvj gap [Moles/Vol]9.9 mmol/L6.0-15.0[facility] Main Campusodium [Moles/volume] in Serum or PlasmaOrdered By: Jah Almonte on 56-40-2091Pyvhfp [Moles/Vol]139 mmol/M020-132MofhvduzmMercy Health – The Jewish HospitalUrea nitrogen [Mass/volume] in Serum or PlasmaOrdered By: Jah Almonte on 68-66-9551Qlao nitrogen [Mass/Vol]15 mg/dL7-25[facility] WBC Auto (Bld) [#/Vol]Ordered By: Jah Almonte on 82-26-9736TYP (Bld) [#/Vol] 13.7 10*3/uL3.8-11.6FSelect Medical Specialty Hospital - [place] NorthActivated partial thromboplastin time (aPTT) in platelet poor plasma by coagulation aOrdered By: Fahrat Castro on 39-25-0463uMZK Coag (PPP) [Time]29.9 s25.1-36.5FSelect Medical Specialty Hospital - [facility] NorthAnisocytosis LM Ql (Bld)Ordered By: Farhat Castro on 24-78-3021Dnjidqlrydfy Ql (Bld)MarkedMercy Health – The Jewish HospitalBasophils Auto (Bld) [#/Vol]Ordered By: Farhat Castro on 59-72-0057Agbmhzdwo (Bld) [#/Vol] 0.1 10*3/uL0.0-0.2FSelect Medical Specialty Hospital - [place] NorthBasophils/100 WBC Auto (Bld) Ordered By: Farhat Castro on 36-52-8084Zucfeyrhb/100 WBC (Bld)0.9 %.[facility] HospitalCOVID CepheidOrdered By: Farhat Castro on 02-05-2023 SARS-CoV-2 (COVID-19) Ab IA QlNegativeNegativeMercy Health – The Jewish Hospital Comment on above:This is a duplicate CepLevel 5 Networksid Xpert Xpress CoV-2/Flu/RSV Plus RNA by RT-PCR result to be used for statistical tracking purpose only.SARS-CoV-2 (COVID-19) RNA JUDIT+probe Ql (Unsp spec)[facility] HospitalCalcium [Mass/volume] in Serum or PlasmaOrdered By: Farhat Castro on 47-19-2363Fptkkcq [Mass/Vol]9.2 mg/dL8.6-10.3FSelect Medical Specialty Hospital - [place] NorthCarbon dioxide, total [Moles/volume] in Serum or PlasmaOrdered By: Farhat Castro on 88-07-2419AR4 [Moles/Vol]23.5 mmol/L21.0-31.0[facility] HospitalChloride [Moles/volume] in Serum or PlasmaOrdered By: Farhat Castro on 46-63-3105Hblqcyff [Moles/Vol]107 mmol/D60-970FfuuicvdiMercy Health – The Jewish HospitalCreatine kinase [Enzymatic activity/volume] in Serum or PlasmaOrdered By: Farhat Castro on 07-11-3638OW [Catalytic activity/Vol]53 U/I30-878PrxitilafMercy Health – The Jewish HospitalCreatinine [Mass/volume] in Serum or PlasmaOrdered By: Farhat Castro on 15-40-1756Zvekvihsky [Mass/Vol]0.55 mg/dL0.60-1.20[facility] HospitalEosinophils Auto (Bld) [#/Vol]Ordered By: Farhat Castro on 02-05-2023 Eosinophils (Bld) [#/Vol]0.1 10*3/uL0.0-0.45[facility] Eosinophils/100 WBC Auto (Bld)Ordered By: Farhat Castro on 02-05-2023 Eosinophils/100 WBC (Bld)0.8 %.[facility] HospitalErythrocyte distribution width Auto (RBC) [Ratio]Ordered By: Farhat Castro on 02-05-2023 Erythrocyte distribution width (RBC) [Ratio]18.2 %11.9-15.3FSelect Medical Specialty Hospital - [place] NorthGlucose [Mass/volume] in Serum or PlasmaOrdered By: Farhat Castro on 33-15-8491Jzatlly [Mass/Vol]104 mg/bZ71-182PgjpmlpsuMercy Health – The Jewish Hospital Comment on above:ADA recommended reference rangeRandom Glucose Reference Range is dependent on time and content of last meal. Glucose of more than 200 mg/dL in a nonstressed, ambulatory subject supports the diagnosisof Diabetes Mellitus. Hematocrit Auto (Bld) [Volume fraction]Ordered By: Farhat Castro on 02-05-2023 Hematocrit (Bld) [Volume fraction]43.5 %34.0-46.4FSelect Medical Specialty Hospital - [place] NorthHemoglobin [Mass/volume] in BloodOrdered By: Farhat Castro on 02-05-2023 Hemoglobin (Bld) [Mass/Vol]13.9 g/dL11.8-15.4FSelect Medical Specialty Hospital [facility] North Laboratory - CoagulationOrdered By: Farhat Castro on 06-65-2507JG Coag (PPP) [Time]11.5 s9.0-12.9[facility] HospitalLeukocytes [#/volume] corrected for nucleated erythrocytes in Blood by Automated counOrdered By: Farhat Castro on 87-74-9785WCR corrected for nucl RBC Auto (Bld) [#/Vol]13.3 10*3/uL3.8-11.6FSelect Medical Specialty Hospital - Cincinnati NorthLymphocytes Auto (Bld) [#/Vol] Ordered By: Farhat Castro on 53-39-0345Hhihxkmflds (Bld) [#/Vol]2.5 10*3/uL 1.00-4.8[facility] HospitalLymphocytes/100 WBC Auto (Bld)Ordered By: Farhat Castro on 96-43-2759Luxuqxbuqff/100 WBC (Bld)18.5 %.[facility] HospitalMCH Auto (RBC) [Entitic mass]Ordered By: Farhat Castro on 46-18-2022VSN (RBC) [Entitic mass]25.5 pg24.7-34.3FSelect Medical Specialty Hospital - [place] NorthMCHC Auto (RBC) [Mass/Vol]Ordered By: Farhat Castro on 04-36-1829DHKM (RBC) [Mass/Vol]32.0 g/dL32.0-35.0[facility] HospitalMCV Auto (RBC) [Entitic vol]Ordered By: Farhat Castro on 39-58-0982XCC (RBC) [Entitic vol]79.8 uX18-026OuhihawrgMercy Health – The Jewish HospitalMicrocytes LM Ql (Bld)Ordered By: Farhat Castro on 79-12-5801Puuchzxpvw Ql (Bld)SlightMercy Health – The Jewish HospitalMonocyte distribution width [Entitic volume] in Blood by AutomatedOrdered By: Farhat Castro on 09-07-1822Xqjyavwl distribution width Auto (Bld) [Entitic vol]17.41 %0.00-20.00[facility] HospitalMonocytes Auto (Bld) [#/Vol]Ordered By: Farhat Castro on 93-44-9458Xlvdqzels (Bld) [#/Vol]0.7 10*3/uL 0.0-0.8[facility] HospitalMonocytes/100 WBC Auto (Bld)Ordered By: Farhat Castro on 32-29-2403Ovasvzcju/100 WBC (Bld)5.6 %.[facility] HospitalNatriuretic peptide B [Mass/Vol]Ordered By: Farhat Castro on 51-19-8385Ibqlxrbsweo peptide B (Bld) [Mass/Vol]23.0 pg/mL5-100[facility] HospitalNeutrophils Auto (Bld) [#/Vol]Ordered By: Farhat Castro on 82-01-6710Ikaapbfekui (Bld) [#/Vol]9.9 10*3/uL1.8-7.7FSelect Medical Specialty Hospital - [facility] NorthNeutrophils/100 WBC Auto (Bld)Ordered By: Farhat Castro on 02-05-2023 Neutrophils/100 WBC (Bld)74.2 %.[facility] HospitalNo Panel InformationOrdered By: Farhat Castro on 07-08-7653Gifdghubc GFR (CKD-EPI)> 60.0 mL/MinMercy Health – The Jewish HospitalPharmacy Creatinine Clearance (Finl702.68 [facility] HospitalNucleated erythrocytes [Presence] in Blood by Automated countOrdered By: Farhat Castro on 55-14-6822Ivjmjoctb RBC Auto Ql (Bld) 0.1 /100{WBC}0-0.5FSelect Medical Specialty Hospital - [place] NorthPlatelet adequacy [Presence] in Blood by Light microscopyOrdered By: Farhat Castro on 64-89-1152Xsdsswbtz LM Ql (Bld)NormalNoPremier Health Upper Valley Medical CenterPlatelet mean volume Auto (Bld) [Entitic vol]Ordered By: Farhat Castro on 78-27-3951Xfhdcgmx mean volume (Bld) [Entitic vol]9.8 fL6.3-10.7FSelect Medical Specialty Hospital - [place] NorthPlatelet morphology finding [Identifier] in BloodOrdered By: Farhat Castro on 02-05-2023 Platelet morphology finding Nom (Bld)NormalNormAultman Orrville HospitalPlatelet poor plasma international normalized ratio (INR) by coagulation assay (relatOrdered By: Farhat Castro on 91-46-3265MZX Coag (PPP) [Relative time] 1.0 {INR}[facility] HospitalComment on above:INR Therapeutic Range A) Pre- and Peroperative OAT started two weeks before surgery. NOT HIP SURGERY: 1.5 - 2.5 HIP SURGERY: 2 - 3B) Primary and secondary prevention of venous THROMBOSIS: 2 - 3C) Active venous thrombosis, pulmonary embolismand prevention of recurrent venous thrombosis: 2 - 3D) Prevention of arterial thromboembolismincluding patients with mechanical heart valves: 3 - 4.5Platelets Auto (Bld) [#/Vol]Ordered By: Farhat Castro on 08-92-3778Rtufojfbm (Bld) [#/Vol] 240 10*3/gQ424-551ZazrptoykMercy Health – The Jewish HospitalPotassium [Moles/volume] in Serum or PlasmaOrdered By: Farhat Castro on 69-78-0879Feefljans [Moles/Vol]4.4 mmol/L3.5-5.1FSelect Medical Specialty Hospital - [place] NorthRBC Auto (Bld) [#/Vol]Ordered By: Farhat Castro on 29-15-4248PRU (Bld) [#/Vol]5.45 10*6/uL3.60-5.00[facility] HospitalRBC morphologyOrdered By: Farhat Castro on 83-46-0935BHU morphology finding Nom (Bld)N/AFSelect Medical TriHealth Rehabilitation Hospitalerum or plasma anion gap determinationOrdered By: Farhat Castro on 62-93-6245Frdzr gap [Moles/Vol]10.9 mmol/L6.0-15.0[facility] Campusodium [Moles/volume] in Serum or PlasmaOrdered By: Farhat Castro on 72-33-4236Ywmrfo [Moles/Vol]137 mmol/S710-263HkhsyjdqzMercy Health – The Jewish HospitalTroponin I.cardiac [Mass/volume] in Serum or Plasma by Detection limit <= 0.01 ng/Ordered By: Farhat Castro on 80-74-4668Gbowmqad I.cardiac DL <= 0.01 ng/mL [Mass/Vol]4.0 pg/mL0.0-15.0[facility] HospitalUrea nitrogen [Mass/volume] in Serum or PlasmaOrdered By: Farhat Castro on 91-07-3131Wdcp nitrogen [Mass/Vol]16 mg/dL7-25[facility] HospitalWBC Auto (Bld) [#/Vol]Ordered By: Farhat Matthew on 19-71-3137ZHV (Bld) [#/Vol]13.3 10*3/uL3.8-11.6FSelect Medical Specialty Hospital - Cincinnati NorthBilirubin Test strip Ql (U)Ordered By: Damien Rashid on 07-95-1702Dxlobzsnw Ql (U)NegativeNegativeMercy Health – The Jewish HospitalColor Auto (U)Ordered By: Damien Rashid on 32-37-1994Dnwdk (U)YellowYellowMercy Health – The Jewish HospitalHCG ( test) IA.rapid Ql (U)Ordered By: Damien Rashid on 70-04-3597ORJ ( test) Ql (U)NegativeMercy Health – The Jewish HospitalKetones Auto test strip (U) [Mass/Vol]Ordered By: Damien Rashid on 99-69-7863Yapwpzo (U) [Mass/Vol]NegativeNegativeMercy Health – The Jewish HospitalNitrite Test strip Ql (U)Ordered By: Damien Rashid on 26-27-1079Cbvkflf Ql (U)NegativeNegSelect Medical Specialty Hospital - Cleveland-FairhillPotassium [Moles/volume] in Serum or PlasmaOrdered By: Damien Rashid on 25-48-8836Juogpwgie [Moles/Vol]3.6 mmol/L3.5-5.1FSelect Medical Specialty Hospital - [place] NorthProtein Auto test strip (U) [Mass/Vol]Ordered By: Damien Rashid on 78-41-3448Lyizwak (U) [Mass/Vol]Negative NegativeWayne HealthCare Main Campuspecific gravity Auto test strip (U) [Rel density]Ordered By: Damien Rashid on 39-81-1970Mrgzdjoa gravity (U) [Rel density]1.0171.001-1.030[facility] HospitalTroponin I.cardiac [Mass/volume] in Serum or Plasma by Detection limit <= 0.01 ng/Ordered By: Damien Rashid on 72-16-2595Icysbnpj I.cardiac DL <= 0.01 ng/mL [Mass/Vol]3.7 pg/mL 0.0-15.0[facility] HospitalUrine clarity by refractometry automatedOrdered By: Damien Rashid on 25-50-2280Paermbp Refractometry automated (U)ClearClearFSelect Medical Specialty Hospital - [place] NorthUrine glucose measurement by automated test strip (mass/volume)Ordered By: Damien Rashid on 03-90-8754Qvgiivh Auto test strip (U) [Mass/Vol]Normal mg/dLNoPremier Health Upper Valley Medical CenterUrine hemoglobin detection by automated test stripOrdered By: Damien Rashid on 24-02-3353Szwowxylrn Auto test strip Ql (U)NegativeNegSelect Medical Specialty Hospital - Cleveland-FairhillUrine leukocyte esterase detection by automated test stripOrdered By: Damien Rashid on 44-78-1434Mfgvuzfap esterase Auto test strip Ql (U)NegativeNegSelect Medical Specialty Hospital - Cleveland-FairhillUrobilinogen Auto test strip (U) [Mass/Vol]Ordered By: Damien Rashid on 86-52-0274Ovnlehaexgdh (U) [Mass/Vol]Normal mg/dLNoPremier Health Upper Valley Medical CenterpH Auto test strip (U)Ordered By: Damien Rashid on 51-89-2461oM (U)6.0 [pH]5.0-9.0[facility] HospitalActivated partial thromboplastin time (aPTT) in platelet poor plasma by coagulation aOrdered By: Damien Rashid on 72-87-4256rOAK Coag (PPP) [Time]31.3 s25.1-36.5FSelect Medical Specialty Hospital - Cincinnati NorthBasophils Auto (Bld) [#/Vol]Ordered By: Damien Rashid on 42-08-5754Ugsxrucqh (Bld) [#/Vol]0.1 10*3/uL0.0-0.2FSelect Medical Specialty Hospital - [place] NorthBasophils/100 WBC Auto (Bld) Ordered By: Damien Rashid on 81-25-0205Zpxzpkxsi/100 WBC (Bld)1.0 %.[facility] HospitalCalcium [Mass/volume] in Serum or PlasmaOrdered By: Damien Rashid on 27-21-9420Bnwzxct [Mass/Vol]9.1 mg/dL8.6-10.3FSelect Medical Specialty Hospital - [place] NorthCarbon dioxide, total [Moles/volume] in Serum or PlasmaOrdered By: Damien Rashid on 79-37-2079QY5 [Moles/Vol]24.4 mmol/L21.0-31.0[facility] HospitalChloride [Moles/volume] in Serum or PlasmaOrdered By: Damien Rashid on 63-55-8281Mjfkzzfh [Moles/Vol]105 mmol/R31-018IshqtucpgMercy Health – The Jewish HospitalCreatinine [Mass/volume] in Serum or PlasmaOrdered By: Damien Rashid on 64-61-4326Spmppybkjx [Mass/Vol]0.61 mg/dL0.60-1.20[facility] HospitalEosinophils Auto (Bld) [#/Vol]Ordered By: Damien Rashid on 53-53-6949Woizcihffny (Bld) [#/Vol]0.1 10*3/uL0.0-0.45[facility] HospitalEosinophils/100 WBC Auto (Bld)Ordered By: Damien Rashid on 39-66-7441Bqjurljebko/100 WBC (Bld)0.8 %.[facility] Erythrocyte distribution width Auto (RBC) [Ratio]Ordered By: Damien Rashid on 07-62-8005Showodizsvk distribution width (RBC) [Ratio]18.9 %11.9-15.3FSelect Medical Specialty Hospital - [place] NorthGlucose [Mass/volume] in Serum or PlasmaOrdered By: Damien Rashid on 19-06-7765Bxzlogg [Mass/Vol]91 mg/dP05-772WsferkwhxMercy Health – The Jewish HospitalComment on above:ADA recommended reference rangeRandom Glucose Reference Range is dependent on time and content of last meal. Glucose of more than 200 mg/dL in a nonstressed, ambulatory subject supports the diagnosisof Diabetes Mellitus.Hematocrit Auto (Bld) [Volume fraction]Ordered By: Damien Rashid on 83-21-7624Rvlowygvbi (Bld) [Volume fraction]42.9 %34.0-46.4FSelect Medical Specialty Hospital - Cincinnati NorthHemoglobin [Mass/volume] in BloodOrdered By: Damien Rashid on 21-27-8850Urgbqgpude (Bld) [Mass/Vol]14.0 g/dL11.8-15.4FSelect Medical Specialty Hospital - [place] NorthLaboratory - Chemistry and Chemistry - challengeOrdered By: Damien Rashid on 90-82-4766JLK/1.73 sq M.predicted MDRD (S/P/Bld) [Vol rate/Area] mL/min/{1.73_m2}[facility] HospitalLaboratory - CoagulationOrdered By: Damien Rashid on 51-41-2295GQ Coag (PPP) [Time]12.2 s9.0-12.9[facility] HospitalLeukocytes [#/volume] corrected for nucleated erythrocytes in Blood by Automated counOrdered By: Damien Rashid on 01-14-2023 WBC corrected for nucl RBC Auto (Bld) [#/Vol]11.7 10*3/uL3.8-11.6FSelect Medical Specialty Hospital - Cincinnati NorthLymphocytes Auto (Bld) [#/Vol]Ordered By: Damien Rashid on 96-80-6090Ugzjjspjxyb (Bld) [#/Vol]2.9 10*3/uL1.00-4.8[facility] HospitalLymphocytes/100 WBC Auto (Bld)Ordered By: Damien Rashid on 76-01-1355Jkxjgoibiyt/100 WBC (Bld)24.4 %.[facility] Auto (RBC) [Entitic mass]Ordered By: Damien Rashid on 53-71-0065ZMC (RBC) [Entitic mass]25.7 pg24.7-34.3FTriHealthHC Auto (RBC) [Mass/Vol]Ordered By: Damien Rashid on 46-01-3047EBPN (RBC) [Mass/Vol]32.7 g/dL 32.0-35.0[facility] HospitalMCV Auto (RBC) [Entitic vol]Ordered By: Damien Rashid on 62-19-3400LRS (RBC) [Entitic vol]78.7 bA65-496BqrnkloetMercy Health – The Jewish HospitalMonocyte distribution width [Entitic volume] in Blood by AutomatedOrdered By: Damien Rashid on 32-58-6738Vwqeskty distribution width Auto (Bld) [Entitic vol]21.82 %0.00-20.00[facility] HospitalComment on above:For adults in ED, MDW > 20.0 may be associated with a higher risk of sepsis during the first 12 hrs of hospital admissionMonocytes Auto (Bld) [#/Vol] Ordered By: Damien Rashid on 48-99-7657Fgnuryytm (Bld) [#/Vol]0.8 10*3/uL0.0-0.8 [facility] HospitalMonocytes/100 WBC Auto (Bld)Ordered By: Damien Rashid on 43-84-5727Iezqiorlh/100 WBC (Bld)6.8 %.[facility] HospitalNatriuretic peptide B [Mass/Vol]Ordered By: Damien Rashid on 01-14-2023 Natriuretic peptide B (Bld) [Mass/Vol]6.0 pg/mL5-100[facility] HospitalNeutrophils Auto (Bld) [#/Vol]Ordered By: Damien Rashid on 01-14-2023 Neutrophils (Bld) [#/Vol]7.9 10*3/uL1.8-7.7FSelect Medical Specialty Hospital - [facility] Neutrophils/100 WBC Auto (Bld)Ordered By: Damien Rashid on 01-14-2023 Neutrophils/100 WBC (Bld)67.0 %.[facility] HospitalNo Panel InformationOrdered By: Damien Rashid on 29-72-9718Deqokixm Creatinine Clearance (Aucq771.87[facility] HospitalNucleated erythrocytes [Presence] in Blood by Automated countOrdered By: Damien Rashid on 12-52-0131Kcmyehtgc RBC Auto Ql (Bld)0.2 /100{WBC}0-0.5FSelect Medical Specialty Hospital - [facility] NorthPlatelet mean volume Auto (Bld) [Entitic vol]Ordered By: Damien Rashid on 79-24-2217Qfsmocxc mean volume (Bld) [Entitic vol]9.8 fL6.3-10.7FSelect Medical Specialty Hospital - [place] [facility] Platelet poor plasma international normalized ratio (INR) by coagulation assay (relatOrdered By: Damien Rashid on 57-07-5853NMJ Coag (PPP) [Relative time]1.0 {INR}[facility] HospitalComment on above:INR Therapeutic Range A) Pre- and Peroperative OAT started two weeks before surgery. NOT HIP SURGERY: 1.5 - 2.5 HIP SURGERY: 2 - 3B) Primary and secondary prevention of venous THROMBOSIS: 2 - 3C) Active venous thrombosis, pulmonary embolismand prevention of recurrent venous thrombosis: 2 - 3D) Prevention of arterial thromboembolismincluding patients with mechanical heart valves: 3 - 4.5Platelets Auto (Bld) [#/Vol]Ordered By: Damien Rashid on 34-55-6028Jrcegojpc (Bld) [#/Vol] 254 10*3/hO755-740EluhtiranMercy Health – The Jewish HospitalRBC Auto (Bld) [#/Vol]Ordered By: Damien Rashid on 85-65-3591BGZ (Bld) [#/Vol]5.44 10*6/uL3.60-5.00[facility] Main Campuserum or plasma anion gap determinationOrdered By: Damien Rashid on 82-29-4348Ihnxi gap [Moles/Vol]N/AFSelect Medical Specialty Hospital [facility] Sodium [Moles/volume] in Serum or PlasmaOrdered By: Damien Rashid on 01-14-2023 Sodium [Moles/Vol]138 mmol/J603-812TosjoypksMercy Health – The Jewish HospitalUrea nitrogen [Mass/volume] in Serum or PlasmaOrdered By: Damien Rashid on 01-14-2023 Urea nitrogen [Mass/Vol]16 mg/dL7-25[facility] HospitalWBC Auto (Bld) [#/Vol]Ordered By: Damien Rashid on 75-11-8998EBG (Bld) [#/Vol]11.7 10*3/uL3.8-11.6FSelect Medical Specialty Hospital - [facility] NorthBasophils Auto (Bld) [#/Vol] Ordered By: Larissa Resendiz on 99-85-3105Dcddfogua (Bld) [#/Vol]0.1 10*3/uL 0.0-0.2FSelect Medical Specialty Hospital - [facility] NorthBasophils/100 WBC Auto (Bld)Ordered By: Larissa Resendiz on 16-35-6647Srndfpvls/100 WBC (Bld)0.5 %.[facility] HospitalEosinophils Auto (Bld) [#/Vol]Ordered By: Larissa Resendiz on 16-30-3125Ufonhbufjic (Bld) [#/Vol]0.1 10*3/uL0.0-0.45[facility] HospitalEosinophils/100 WBC Auto (Bld)Ordered By: Larissa Resendiz on 63-85-2523Lgeaeeolmyv/100 WBC (Bld)1.0 %.[facility] Erythrocyte distribution width Auto (RBC) [Ratio]Ordered By: Larissa Resendiz on 82-91-5492Nuemoeahulb distribution width (RBC) [Ratio]19.5 %11.9-15.3 [facility] HospitalHematocrit Auto (Bld) [Volume fraction]Ordered By: Larissa Resendiz on 26-53-0507Llnyqenthf (Bld) [Volume fraction]41.4 % 34.0-46.4FSelect Medical Specialty Hospital - [place] NorthHemoglobin [Mass/volume] in Blood Ordered By: Larissa Resendiz on 84-23-7631Jxtiatmxnp (Bld) [Mass/Vol]13.3 g/dL11.8-15.4FSelect Medical Specialty Hospital - [facility] NorthLeukocytes [#/volume] corrected for nucleated erythrocytes in Blood by Automated counOrdered By: Larissa Resendiz on 55-68-4303QEF corrected for nucl RBC Auto (Bld) [#/Vol]12.9 10*3/uL 3.8-11.6FSelect Medical Specialty Hospital - Cincinnati NorthLymphocytes Auto (Bld) [#/Vol]Ordered By: Larissa Resendiz on 79-07-5025Hrhuqwrdwyv (Bld) [#/Vol]2.9 10*3/uL 1.00-4.8[facility] HospitalLymphocytes/100 WBC Auto (Bld)Ordered By: Larissa Resendiz on 57-98-2217Tgkltopvgdp/100 WBC (Bld)22.7 %.[facility] HospitalMCH Auto (RBC) [Entitic mass]Ordered By: Larissa Resendiz on 59-09-8356ICX (RBC) [Entitic mass]25.4 pg24.7-34.3FSelect Medical Specialty Hospital - [place] NorthMCHC Auto (RBC) [Mass/Vol]Ordered By: Larissa Resendiz on 86-37-0120YXFQ (RBC) [Mass/Vol]32.3 g/dL32.0-35.0[facility] HospitalMCV Auto (RBC) [Entitic vol]Ordered By: Larissa Resendiz on 01-11-2023 MCV (RBC) [Entitic vol]78.8 zK58-121OdtldbljjMercy Health – The Jewish HospitalMonocytes Auto (Bld) [#/Vol]Ordered By: Larissa Resendiz on 81-69-9866Qrpubwnay (Bld) [#/Vol]0.5 10*3/uL0.0-0.8[facility] HospitalMonocytes/100 WBC Auto (Bld)Ordered By: Larissa Resendiz on 65-68-7295Mjmsmankk/100 WBC (Bld)4.1 %. [facility] HospitalNeutrophils Auto (Bld) [#/Vol]Ordered By: Larissa Resendiz on 55-53-5310Kxvhxcojeci (Bld) [#/Vol]9.2 10*3/uL1.8-7.7 [facility] HospitalNeutrophils/100 WBC Auto (Bld)Ordered By: Larissa Resendiz on 87-38-6321Krgbvdsecdx/100 WBC (Bld)71.7 %.[facility] HospitalNucleated erythrocytes [Presence] in Blood by Automated countOrdered By: Larissa Resendiz on 80-46-3455Pszjizsgi RBC Auto Ql (Bld)0.1 /100{WBC}0-0.5FSelect Medical Specialty Hospital - [facility] NorthPlatelet mean volume Auto (Bld) [Entitic vol]Ordered By: Larissa Resendiz on 84-25-2578Nlhcjtfo mean volume (Bld) [Entitic vol]10.6 fL6.3-10.7FSelect Medical Specialty Hospital - [facility] NorthPlatelets Auto (Bld) [#/Vol]Ordered By: Larissa Resendiz on 58-46-0237Xdbepqdzp (Bld) [#/Vol]250 10*3/iA912-776LahciqgclMercy Health – The Jewish HospitalRBC Auto (Bld) [#/Vol] Ordered By: Larissa Resendiz on 38-98-3869GVW (Bld) [#/Vol]5.25 10*6/uL 3.60-5.00[facility] HospitalWBC Auto (Bld) [#/Vol]Ordered By: Larissa Resendiz on 31-26-7467IJK (Bld) [#/Vol]12.9 10*3/uL3.8-11.6FSelect Medical Specialty Hospital - Cincinnati NorthAlanine aminotransferase [Enzymatic activity/volume] in Serum or PlasmaOrdered By: Jah Almonte on 53-31-2913JIZ [Catalytic activity/Vol]16 U/L7-52[facility] HospitalAlanine aminotransferase [Enzymatic activity/volume] in Serum or PlasmaOrdered By: Larissa Resendiz on 77-85-0981LMY [Catalytic activity/Vol]15 U/L7-52[facility] HospitalAlbumin [Mass/volume] in Serum or Plasma by Bromocresol green (BCG) dye binding methoOrdered By: Jah Almonte on 51-03-7240Mjmnddm BCG dye [Mass/Vol] 4.2 g/dL3.5-5.7FSelect Medical Specialty Hospital - [place] NorthAlbumin [Mass/volume] in Serum or Plasma by Bromocresol green (BCG) dye binding methoOrdered By: Larissa Resendiz on 38-37-2274Ckqvdsw BCG dye [Mass/Vol]4.1 g/dL3.5-5.7FSelect Medical Specialty Hospital - [place] NorthAlkaline phosphatase [Enzymatic activity/volume] in Serum or PlasmaOrdered By: Jah Almonte on 67-49-3275WCO [Catalytic activity/Vol]94 U/L99-814ZrlguxkttMercy Health – The Jewish HospitalAlkaline phosphatase [Enzymatic activity/volume] in Serum or PlasmaOrdered By: Larissa Resendiz on 01-10-2023 ALP [Catalytic activity/Vol]92 U/J61-730ZmqtnndcnMercy Health – The Jewish Hospital Aspartate aminotransferase [Enzymatic activity/volume] in Serum or PlasmaOrdered By: Jah Almonte on 00-81-0474XQE [Catalytic activity/Vol]14 U/X91-15JjmenmbhbMercy Health – The Jewish HospitalAspartate aminotransferase [Enzymatic activity/volume] in Serum or PlasmaOrdered By: Larissa Resendiz on 86-28-8507HWU [Catalytic activity/Vol]15 U/O59-84IpgijffqhMercy Health – The Jewish HospitalBasophils Auto (Bld) [#/Vol]Ordered By: Jah Almonte on 95-51-4388Mrhssazsf (Bld) [#/Vol]0.1 10*3/uL 0.0-0.2FSelect Medical Specialty Hospital - [place] NorthBasophils/100 WBC Auto (Bld)Ordered By: Jah Almonte on 57-29-9744Uphbeomvy/100 WBC (Bld)0.8 %.[facility] HospitalBilirubin Test strip Ql (U)Ordered By: Jah Almonte on 01-10-2023 Bilirubin Ql (U)NegativeNegativeMercy Health – The Jewish HospitalBilirubin.total [Mass/volume] in Serum or PlasmaOrdered By: Jah Almonte on 01-10-2023 Bilirubin [Mass/Vol]0.3 mg/dL0.3-1.0[facility] Bilirubin.total [Mass/volume] in Serum or PlasmaOrdered By: Larissa Resendiz on 16-71-1833Wkefmwlsk [Mass/Vol]0.2 mg/dL0.3-1.0[facility] HospitalCalcium [Mass/volume] in Serum or PlasmaOrdered By: Jah Almonte on 93-23-8062Irwchqb [Mass/Vol]9.0 mg/dL8.6-10.3FSelect Medical Specialty Hospital - [facility] North Calcium [Mass/volume] in Serum or PlasmaOrdered By: Larissa Resendiz on 81-89-9139Rjjrlqd [Mass/Vol]8.9 mg/dL8.6-10.3FSelect Medical Specialty Hospital - [place] North Carbon dioxide, total [Moles/volume] in Serum or PlasmaOrdered By: Jah Almonte on 74-08-0866OU3 [Moles/Vol]25.8 mmol/L21.0-31.0[facility] HospitalCarbon dioxide, total [Moles/volume] in Serum or PlasmaOrdered By: Larissa Resendiz on 59-64-1269WI9 [Moles/Vol]22.9 mmol/L21.0-31.0[facility] HospitalChloride [Moles/volume] in Serum or PlasmaOrdered By: Jah Almonte on 17-62-0695Dqvjcbwh [Moles/Vol]105 mmol/G76-690Xqwnqcsjp Regional Medical CenterChloride [Moles/volume] in Serum or PlasmaOrdered By: Larissa Resendiz on 65-13-7557Adrhzlyp [Moles/Vol]104 mmol/E52-517VveqisfyuMercy Health – The Jewish HospitalCholesterol [Mass/volume] in Serum or PlasmaOrdered By: Larissa Resendiz on 43-26-0595Hanyckhutyd [Mass/Vol]213 mg/yM288-064MaodyabozMercy Health – The Jewish HospitalComment on above:Chol less than 200 mg/dl low riskChol 201-239 mg/dl borderline riskChol 240 mg/dl and greater high riskCholesterol in LDL Calc [Mass/Vol]Ordered By: Larissa Resendiz on 37-50-0303Nkelacbsimv in LDL [Mass/Vol]141 mg/dL0-100[facility] HospitalComment on above: LDL ATP III CLASSIFICATIONLDL less than 100 mg/dL OptimalLDL 100-129 mg/dL Near or above qochphiYXL980-889 mg/dL Borderline highLDL 160-189 mg/dL HighLDL greater than 189 mg/dL Very highCholesterol in VLDL Calc [Mass/Vol]Ordered By: Larissa Resendiz on 63-70-9164Jmfywhdftlr in VLDL [Mass/Vol]23 mg/dLMercy Health – The Jewish HospitalColor Auto (U)Ordered By: Jah Almonte on 01-10-2023 Color (U)YellowYellowMercy Health – The Jewish HospitalCreatinine [Mass/volume] in Serum or PlasmaOrdered By: Jah Almonte on 59-96-4726Hxkegmaznl [Mass/Vol] 0.67 mg/dL0.60-1.20[facility] HospitalCreatinine [Mass/volume] in Serum or PlasmaOrdered By: Larissa Resendiz on 60-21-2351Vuuxxrscfe [Mass/Vol]0.66 mg/dL0.60-1.20[facility] HospitalEosinophils Auto (Bld) [#/Vol]Ordered By: Jah Almonte on 92-04-8692Jaswjeqedkm (Bld) [#/Vol]0.1 10*3/uL0.0-0.45[facility] HospitalEosinophils/100 WBC Auto (Bld) Ordered By: Jah Almonte on 57-36-1658Hwuvhwemvez/100 WBC (Bld)0.8 %.[facility] HospitalErythrocyte distribution width Auto (RBC) [Ratio]Ordered By: Jah Almonte on 83-05-3713Dgwwbingmrq distribution width (RBC) [Ratio]19.3 %11.9-15.3FSelect Medical Specialty Hospital - [place] NorthGlobulin Calc (S) [Mass/Vol]Ordered By: Jah Almonte on 01-80-7256Ufcsebgv (S) [Mass/Vol]2.7 g/dLMercy Health – The Jewish HospitalGlobulin Calc (S) [Mass/Vol]Ordered By: Larissa Resendiz on 69-75-8141Jopqgjgw (S) [Mass/Vol]2.8 g/dLMercy Health – The Jewish Hospital Glucose Glucometer (BldC) [Mass/Vol]Ordered By: Jah Almonte on 01-10-2023 Glucose [Mass/Vol]142 mg/dLMercy Health – The Jewish HospitalComment on above: Random Glucose Reference Range is dependent on time and content of last meal. Glucose of more than 200 mg/dL in a nonstressed, ambulatory subject supports the diagnosis of Diabetes Mellitus.Glucose [Mass/volume] in Serum or PlasmaOrdered By: Jah Almonte on 72-56-5892Aayjlgw [Mass/Vol]140 mg/aO82-515XdlralnwuMercy Health – The Jewish HospitalComment on above:ADA recommended reference rangeRandom Glucose Reference Range is dependent on time and content of last meal. Glucose of more than 200 mg/dL in a nonstressed, ambulatory subject supports the diagnosisof Diabetes Mellitus.Glucose [Mass/volume] in Serum or PlasmaOrdered By: Larissa Resendiz on 97-10-8846Bhrvmdt [Mass/Vol]138 mg/zF30-920HlsnfajxaMercy Health – The Jewish HospitalComment on above:ADA recommended reference rangeRandom Glucose Reference Range is dependent on time and content of last meal. Glucose of more than 200 mg/dL in a nonstressed, ambulatory subject supports the diagnosisof Diabetes Mellitus.HCG ( test) IA.rapid Ql (U)Ordered By: Jah Almonte on 95-93-2003FYD ( test) Ql (U)NegativeMercy Health – The Jewish HospitalHematocrit Auto (Bld) [Volume fraction]Ordered By: Jah Almonte on 07-18-9360Sbssmvrqms (Bld) [Volume fraction]40.9 %34.0-46.4FSelect Medical Specialty Hospital - Cincinnati NorthHemoglobin [Mass/volume] in BloodOrdered By: Jah Almonte on 03-80-1575Hypcqyssmp (Bld) [Mass/Vol]13.5 g/dL11.8-15.4FSelect Medical Specialty Hospital - [place] NorthKetones Auto test strip (U) [Mass/Vol]Ordered By: Jah Almonte on 71-41-7463Jrmhadl (U) [Mass/Vol]NegativeNegativeMercy Health – The Jewish HospitalLaboratory - Chemistry and Chemistry - challengeOrdered By: Jah Almonte on 35-23-4833JTE/1.73 sq M.predicted MDRD (S/P/Bld) [Vol rate/Area] mL/min/{1.73_m2}[facility] HospitalLeukocytes [#/volume] corrected for nucleated erythrocytes in Blood by Automated counOrdered By: Jah Almonte on 05-04-7628EEI corrected for nucl RBC Auto (Bld) [#/Vol]13.3 10*3/uL3.8-11.6 [facility] HospitalLymphocytes Auto (Bld) [#/Vol]Ordered By: Jah Almonte on 44-67-5406Uqhzzqjirnr (Bld) [#/Vol]2.9 10*3/uL1.00-4.8[facility] HospitalLymphocytes/100 WBC Auto (Bld)Ordered By: Jah Almonte on 47-69-5067Yedbnbnopgs/100 WBC (Bld)21.5 %.[facility] MCH Auto (RBC) [Entitic mass]Ordered By: Jah Almonte on 28-44-1757XBZ (RBC) [Entitic mass]25.8 pg24.7-34.3FSelect Medical Specialty Hospital - [place] NorthMCHC Auto (RBC) [Mass/Vol]Ordered By: Jah Almonte on 96-82-6214GZON (RBC) [Mass/Vol]33.1 g/dL 32.0-35.0[facility] HospitalMCV Auto (RBC) [Entitic vol]Ordered By: Jah Almonte on 57-63-9732SIJ (RBC) [Entitic vol]77.9 mE81-426XemxizlecMercy Health – The Jewish HospitalMagnesium [Mass/volume] in Serum or PlasmaOrdered By: Jah Almonte on 52-47-4278Rnfjygrls [Mass/Vol]2.2 mg/dL1.9-2.7FSelect Medical Specialty Hospital - [place] NorthMonocyte distribution width [Entitic volume] in Blood by AutomatedOrdered By: Jah Almonte on 35-51-5584Oxhzytuj distribution width Auto (Bld) [Entitic vol]20.66 %0.00-20.00[facility] HospitalComment on above:For adults in ED, MDW > 20.0 may be associated with a higher risk of sepsis during the first 12 hrs of hospital admissionMonocytes Auto (Bld) [#/Vol] Ordered By: Jah Almonte on 37-17-2840Cnxsoqevs (Bld) [#/Vol]0.6 10*3/uL0.0-0.8 [facility] HospitalMonocytes/100 WBC Auto (Bld)Ordered By: Jah Almonte on 46-86-3662Dyfxvusya/100 WBC (Bld)4.2 %.[facility] HospitalNeutrophils Auto (Bld) [#/Vol]Ordered By: Jah Almonte on 01-10-2023 Neutrophils (Bld) [#/Vol]9.7 10*3/uL1.8-7.7FSelect Medical Specialty Hospital - [facility] North Neutrophils/100 WBC Auto (Bld)Ordered By: Jah Almonte on 01-10-2023 Neutrophils/100 WBC (Bld)72.7 %.[facility] HospitalNitrite Test strip Ql (U)Ordered By: Jah Almonte on 11-03-7630Dbnjcrs Ql (U)Negative NegativeMercy Health – The Jewish HospitalNo Panel InformationOrdered By: Jah Almonte on 19-81-0431Vvimytg Glucose #2 CommentCleaned meterMercy Health – The Jewish HospitalBedside Glucose CommentSee commentMercy Health – The Jewish HospitalComment on above:Glu2: WILL NOTIFY /Carl Creatinine Clearance (Qxdw234.37[facility] HospitalNo Panel InformationOrdered By: Larissa Resendiz on 71-36-6580Xneyjjyr Creatinine Clearance (ChemN/AFSelect Medical Specialty Hospital - [place] NorthNucleated erythrocytes [Presence] in Blood by Automated countOrdered By: Jah Almonte on 84-43-4059Hcdfgtngr RBC Auto Ql (Bld)0.0 /100{WBC}0-0.5FSelect Medical Specialty Hospital - Cincinnati NorthPlatelet mean volume Auto (Bld) [Entitic vol]Ordered By: Jah Almonte on 16-46-3339Adjpsoqa mean volume (Bld) [Entitic vol]9.4 fL6.3-10.7FSelect Medical Specialty Hospital - Cincinnati NorthPlatelets Auto (Bld) [#/Vol]Ordered By: Jah Almonte on 36-35-9342Aagyappzw (Bld) [#/Vol]241 10*3/uL 150-450[facility] HospitalPotassium [Moles/volume] in Serum or PlasmaOrdered By: Jah Almonte on 62-12-3847Fgxylynyc [Moles/Vol]3.5 mmol/L 3.5-5.1FSelect Medical Specialty Hospital - [place] NorthProtein Auto test strip (U) [Mass/Vol] Ordered By: Jah Almonte on 74-75-4672Bfdulyw (U) [Mass/Vol]NegativeNegative [facility] HospitalProtein [Mass/volume] in Serum or PlasmaOrdered By: Jah Almonte on 82-78-4270Zanxdbg [Mass/Vol]6.9 g/dL6.4-8.9[facility] HospitalRBC Auto (Bld) [#/Vol]Ordered By: Jah Almonte on 60-58-9914FTS (Bld) [#/Vol]5.25 10*6/uL3.60-5.00[facility] Campuserum or plasma albumin/globulin mass ratioOrdered By: Jah Almonte on 58-26-4258Lgpufeq/Globulin [Mass ratio]1.6 {ratio}[facility] Campuserum or plasma albumin/globulin mass ratioOrdered By: Larissa Resendiz on 34-70-3547Hhqqrxb/Globulin [Mass ratio]1.5 {ratio}[facility] Campuserum or plasma anion gap determinationOrdered By: Jah Almonte on 98-32-8036Umeoc gap [Moles/Vol]11.7 mmol/L6.0-15.0[facility] Campuserum or plasma anion gap determinationOrdered By: Larissa Resendiz on 55-09-1675Gycvf gap [Moles/Vol]15.6 mmol/L6.0-15.0[facility] Campuserum or plasma high density lipoprotein (HDL) cholesterol measurement Ordered By: Larissa Resendiz on 02-29-1411Favhojlezuj in HDL [Mass/Vol]48 mg/lJ71-41KdprbblryMercy Health – The Jewish HospitalComment on above:HDL CHOL ATP-III CLASSIFICATION Cardiovascular RiskHDL > or equal to 60 mg/dL LOWHDL < 40 mg/dL HIGHSerum or plasma total cholesterol/high density lipoprotein (HDL) cholesterol mass ratOrdered By: Larissa Resendiz on 01-10-2023 Cholesterol.total/Cholesterol in HDL [Mass ratio]4.4 {ratio}<5.0[facility] Campusodium [Moles/volume] in Serum or PlasmaOrdered By: Jah Almonte on 42-90-2737Zgwldq [Moles/Vol]139 mmol/V379-552VklbzbqoaWayne HealthCare Main Campuspecific gravity Auto test strip (U) [Rel density]Ordered By: Jah Almonte on 82-16-4276Iddutkkq gravity (U) [Rel density]1.0151.001-1.030 [facility] HospitalThyrotropin [Units/volume] in Serum or Plasma Ordered By: Larissa Resendiz on 07-56-8599GEV Qn1.60 m[IU]/L0.45-5.33 [facility] HospitalTriglyceride [Mass/volume] in Serum or Plasma Ordered By: Larissa Resendiz on 10-56-0240Hgzvmaiinqpz [Mass/Vol]119 mg/dL 0-149Mer[facility] Jewish HospitalComment on above:TRIG ATP III CLASSIFICATIONTRIG less than 150 mg/dL NormalTRIG 150-199 mg/dL Borderline highTRIG 200-500 mg/dL High TRIG greater than 500 mg/dL Very highStandard traceable to the Center for Disease Conrtrol and Prevention (CDC) test method. Troponin I.cardiac [Mass/volume] in Serum or Plasma by Detection limit <= 0.01 ng/Ordered By: Jah Almonte on 81-67-7172Kifcoldu I.cardiac DL <= 0.01 ng/mL [Mass/Vol]3.6 pg/mL0.0-15.0[facility] HospitalUrea nitrogen [Mass/volume] in Serum or PlasmaOrdered By: Jah Almonte on 00-64-3097Upqp nitrogen [Mass/Vol]20 mg/dL7-25[facility] HospitalUrine clarity by refractometry automatedOrdered By: Jah Almonte on 28-81-7443Klssnaf Refractometry automated (U)ClearClearFSelect Medical Specialty Hospital - [place] NorthUrine glucose measurement by automated test strip (mass/volume)Ordered By: Jah Almonte on 75-42-9361Txntnhk Auto test strip (U) [Mass/Vol]Normal mg/dLKindred Hospital DaytonUrine hemoglobin detection by automated test stripOrdered By: Jah Almonte on 26-04-8001Enfhitfvac Auto test strip Ql (U) NegativeNegSelect Medical Specialty Hospital - Cleveland-FairhillUrine leukocyte esterase detection by automated test stripOrdered By: Jah Almonte on 01-10-2023 Leukocyte esterase Auto test strip Ql (U)NegativeNegSelect Medical Specialty Hospital - Cleveland-FairhillUrobilinogen Auto test strip (U) [Mass/Vol]Ordered By: Jah Almonte on 49-15-6211Udrkxdkzcidj (U) [Mass/Vol]Normal mg/dLNoPremier Health Upper Valley Medical CenterVitamin B12 ser/plasOrdered By: Larissa Resendiz on 94-31-6896Wxfwcxebd (Vitamin B12) [Mass/Vol]457 pg/eG082-012TbbgzbmikMercy Health – The Jewish HospitalWBC Auto (Bld) [#/Vol]Ordered By: Jah Almonte on 94-65-8585OKX (Bld) [#/Vol]13.3 10*3/uL3.8-11.6FSelect Medical Specialty Hospital - [place] NorthpH Auto test strip (U)Ordered By: Jah Almonte on 69-35-1011fS (U)5.5 [pH]5.0-9.0[facility] HospitalAlbumin [Mass/volume] in Body fluidOrdered By: Keith Lugo on 90-32-0551Ybcrekq (Body fld) [Mass/Vol]3.6 g/dL3.2-5.5FSelect Medical Specialty Hospital - [place] NorthAlkaline phosphatase [Enzymatic activity/volume] in Serum or PlasmaOrdered By: Keith Lugo on 15-68-3703RSI [Catalytic activity/Vol] 95 U/I69-50OcuhtnxqfMercy Health – The Jewish HospitalAspartate aminotransferase [Enzymatic activity/volume] in Serum or PlasmaOrdered By: Keith Lugo on 25-22-3963VRN [Catalytic activity/Vol]17 U/C87-93AxzgkpkihMercy Health – The Jewish HospitalBasophils Auto (Bld) [#/Vol]Ordered By: Keith Lugo on 12-27-2022 Basophils (Bld) [#/Vol]0.1 10*3/uL0.0-0.2FSelect Medical Specialty Hospital - [place] North Basophils/100 WBC Auto (Bld)Ordered By: Keith Lugo on 12-27-2022 Basophils/100 WBC (Bld)0.8 %.[facility] HospitalBilirubin Test strip Ql (U)Ordered By: Keith Lugo on 31-82-1743Twgesiavd Ql (U)Negative NegativeMercy Health – The Jewish HospitalBilirubin.total [Mass/volume] in Serum or PlasmaOrdered By: Keith Lugo on 07-46-0752Uddnuwjlp [Mass/Vol]0.2 mg/dL 0.3-1.2FSelect Medical Specialty Hospital - [place] NorthCOVID CepheidOrdered By: Keith Lugo on 95-60-0330FZNI-CoV-2 (COVID-19) Ab IA QlNegativeNegativeMercy Health – The Jewish HospitalComment on above:This is a duplicate Cepheid Xpert Xpress CoV-2/Flu/RSV Plus RNA by RT-PCR result to be used for statistical tracking purpose only.SARS-CoV-2 (COVID-19) RNA JUDIT+probe Ql (Unsp spec)[facility] CampusARS-CoV-2 (COVID-19) RNA JUDIT+probe Ql (Unsp spec) [facility] HospitalCalcium [Mass/volume] in Serum or PlasmaOrdered By: Keith Lugo on 45-25-0298Kooqcdy [Mass/Vol]8.9 mg/dL8.2-10.2FSelect Medical Specialty Hospital - [place] NorthCarbon dioxide, total [Moles/volume] in Serum or Plasma Ordered By: Keith Lugo on 31-93-7196QT1 [Moles/Vol]25.8 mmol/L22.0-30.0 [facility] HospitalChloride [Moles/volume] in Serum or Plasma Ordered By: Keith Lugo on 75-95-8294Gnjiwbuz [Moles/Vol]103 mmol/L95-114 [facility] HospitalColor Auto (U)Ordered By: Keith Lugo on 86-79-2971Zbolg (U)YellowYellowMercy Health – The Jewish HospitalCreatinine and Glomerular filtration rate.predicted panel (S/P/Bld)Ordered By: Keith Lugo on 94-86-6933Mssmcvivmn [Mass/Vol]0.69 mg/dL0.44-1.03[facility] HospitalEosinophils Auto (Bld) [#/Vol]Ordered By: Keith Lugo on 12-27-2022 Eosinophils (Bld) [#/Vol]0.1 10*3/uL0.0-0.45[facility] Eosinophils/100 WBC Auto (Bld)Ordered By: Keith Lugo on 12-27-2022 Eosinophils/100 WBC (Bld)0.9 %.[facility] HospitalErythrocyte distribution width Auto (RBC) [Ratio]Ordered By: Keith Lugo on 12-27-2022 Erythrocyte distribution width (RBC) [Ratio]20.8 %11.9-15.3FSelect Medical Specialty Hospital - [place] NorthEstimated glomerular filtration rate (GFR) non- Ordered By: Keith Lugo on 62-09-1525ZKK/1.73 sq M.predicted among non- blacks MDRD (S/P/Bld) [Vol rate/Area]> 60 mL/MinMercy Health – The Jewish HospitalGlobulin Calc (S) [Mass/Vol]Ordered By: Keith Lugo on 12-27-2022 Globulin (S) [Mass/Vol]2.8 g/dLMercy Health – The Jewish HospitalGlucose [Mass/volume] in Serum or PlasmaOrdered By: Keith Lugo on 12-27-2022 Glucose [Mass/Vol]116 mg/aH38-979QqqoahyhuMercy Health – The Jewish HospitalComment on above:ADA recommended reference rangeRandom Glucose Reference Range is dependent on time and content of last meal. Glucose of more than 200 mg/dL in a nonstressed, ambulatory subject supports the diagnosisof Diabetes Mellitus. Hematocrit Auto (Bld) [Volume fraction]Ordered By: Keith Lugo on 11-14-0975Wfghzcechh (Bld) [Volume fraction]40.6 %34.0-46.4FSelect Medical Specialty Hospital - [place] NorthHemoglobin [Mass/volume] in BloodOrdered By: Keith Lugo on 29-30-3739Nvwlvfzcxl (Bld) [Mass/Vol]13.1 g/dL11.8-15.4FSelect Medical Specialty Hospital - [place] NorthKetones Auto test strip (U) [Mass/Vol]Ordered By: Keith Lugo on 71-60-4410Rgyksug (U) [Mass/Vol]NegativeNegativeMercy Health – The Jewish HospitalLaboratory - Chemistry and Chemistry - challengeOrdered By: Keith Lugo on 37-88-9051Xkodox [Catalytic activity/Vol]27.0 U/V41-96MlyyrmmquMercy Health – The Jewish HospitalLeukocytes [#/volume] corrected for nucleated erythrocytes in Blood by Automated counOrdered By: Keith Lugo on 90-48-7043ZQZ corrected for nucl RBC Auto (Bld) [#/Vol]13.7 10*3/uL3.8-11.6 [facility] HospitalLymphocytes Auto (Bld) [#/Vol]Ordered By: Keith Lugo on 43-65-9946Wtuzhhjgbjz (Bld) [#/Vol]3.0 10*3/uL1.00-4.8 [facility] HospitalLymphocytes/100 WBC Auto (Bld)Ordered By: Keith Lugo on 47-67-0081Wzxzygwjghu/100 WBC (Bld)22.2 %.[facility] HospitalH Auto (RBC) [Entitic mass]Ordered By: Keith Lugo on 99-24-5167MBQ (RBC) [Entitic mass]24.8 pg24.7-34.3FSelect Medical Specialty Hospital - [place] NorthMCHC Auto (RBC) [Mass/Vol]Ordered By: Keith Lugo on 94-02-0934XOCK (RBC) [Mass/Vol]32.2 g/dL32.0-35.0[facility] HospitalMCV Auto (RBC) [Entitic vol]Ordered By: Keith Lugo on 84-24-4152YZN (RBC) [Entitic vol]77.1 fA94-312RkgjyfoprMercy Health – The Jewish HospitalMonocyte distribution width [Entitic volume] in Blood by AutomatedOrdered By: Keith Lugo on 12-27-2022 Monocyte distribution width Auto (Bld) [Entitic vol]17.58 %0.00-20.00[facility] HospitalMonocytes Auto (Bld) [#/Vol]Ordered By: Keith Lugo on 25-97-5096Utrzyhlvc (Bld) [#/Vol]0.6 10*3/uL0.0-0.8[facility] HospitalMonocytes/100 WBC Auto (Bld)Ordered By: Keith Lugo on 12-27-2022 Monocytes/100 WBC (Bld)4.6 %.[facility] HospitalNeutrophils Auto (Bld) [#/Vol]Ordered By: Keith Lugo on 13-45-5951Kycvldpnpcz (Bld) [#/Vol] 9.8 10*3/uL1.8-7.7FSelect Medical Specialty Hospital - Cincinnati NorthNeutrophils/100 WBC Auto (Bld)Ordered By: Keith Lugo on 61-55-3067Njjyezocles/100 WBC (Bld)71.5 %. [facility] HospitalNitrite Test strip Ql (U)Ordered By: Keith Lugo on 04-27-1279Fzevgwy Ql (U)NegativeNegativeMercy Health – The Jewish HospitalNo Panel InformationOrdered By: Keith Lugo on 92-08-5790D-Dimer Quantitative (PE/DVT)385 ng/mL0-243Mer[facility] The Jewish HospitalComment on above:The reference range for D-dimer is <243 ng/mL [...] be increased in hospitalized patients due toco-morbid conditions.Estimated GFR ()> 60 mL/MinMercy Health – The Jewish HospitalComment on above:GFR estimated reference range: According to KDOQI guidelines, <60 ml/min/1.73m2 is sufficient todiagnose a patient with chronic kidney disease.Pharmacy Creatinine Clearance ([id number] HospitalNucleated erythrocytes [Presence] in Blood by Automated countOrdered By: Keith Lugo on 24-71-4825Jqdezzggk RBC Auto Ql (Bld)0.1 /100{WBC}0-0.5FSelect Medical Specialty Hospital - [place] NorthPlatelet mean volume Auto (Bld) [Entitic vol]Ordered By: Keith Lugo on 73-73-7910Syqgdroi mean volume (Bld) [Entitic vol]9.2 fL6.3-10.7FSelect Medical Specialty Hospital - [place] NorthPlatelets Auto (Bld) [#/Vol]Ordered By: Keith Lugo on 42-91-0822Dlfqhaxaw (Bld) [#/Vol] 267 10*3/vE734-049JorrahtztMercy Health – The Jewish HospitalPotassium [Moles/volume] in Serum or PlasmaOrdered By: Keith Lugo on 52-45-9475Glmpmyhje [Moles/Vol] 3.6 mmol/L3.5-5.1FSelect Medical Specialty Hospital - [place] NorthProtein Auto test strip (U) [Mass/Vol]Ordered By: Keith Lugo on 26-02-8148Elcztde (U) [Mass/Vol] NegativeNegativeMercy Health – The Jewish HospitalProtein [Mass/volume] in Serum or PlasmaOrdered By: Keith Lugo on 99-10-9555Zczfmcw [Mass/Vol]6.4 g/dL 6.1-7.9[facility] HospitalRBC Auto (Bld) [#/Vol]Ordered By: Keith Lugo on 17-76-5586XUP (Bld) [#/Vol]5.27 10*6/uL3.60-5.00[facility] Campuserum or plasma alanine aminotransferase measurement without P-5'-P (enzymatic activiOrdered By: Keith Lugo on 39-43-5086SIQ No additional P-5'-P [Catalytic activity/Vol]16 U/S98-21PucrhcegmWayne HealthCare Main Campuserum or plasma albumin/globulin mass ratioOrdered By: Keith Lugo on 80-50-2346Jhrsylp/Globulin [Mass ratio]1.3 {ratio}[facility] Campuserum or plasma anion gap determinationOrdered By: Keith Lugo on 83-87-4716Kyzcl gap [Moles/Vol]12.8 mmol/L6.0-15.0[facility] Campusodium [Moles/volume] in Serum or PlasmaOrdered By: Keith Lugo on 11-47-4410Ngnuuu [Moles/Vol]138 mmol/H108-119FjpztlqmmMercy Health – The [facility] Hospital Specific gravity Auto test strip (U) [Rel density]Ordered By: Keith Lugo on 74-88-8425Lskqnedt gravity (U) [Rel density]1.0261.001-1.030[facility] HospitalTroponin I.cardiac [Mass/volume] in Serum or Plasma by High sensitivity methodOrdered By: Keith Lugo on 93-62-6110Agmgyywh I.cardiac High sensitivity method [Mass/Vol]4 pg/mL0-15[facility] HospitalUrea nitrogen [Mass/volume] in Serum or PlasmaOrdered By: Keith Lugo on 82-37-4274Xkhp nitrogen [Mass/Vol]11 mg/dL9-23[facility] HospitalUrine clarity by refractometry automatedOrdered By: Keith Lugo on 23-59-1562Mgpdbso Refractometry automated (U)ClearCleProMedica Fostoria Community HospitalUrine glucose measurement by automated test strip (mass/volume)Ordered By: Keith Lugo on 59-11-0336Hfitnew Auto test strip (U) [Mass/Vol]Normal mg/dLNormalMercy Health – The Jewish HospitalUrine hemoglobin detection by automated test stripOrdered By: Keith Lugo on 85-11-9203Ulllxdjclv Auto test strip Ql (U)NegativeNegativeMercy Health – The Jewish HospitalUrine leukocyte esterase detection by automated test stripOrdered By: Keith Lugo on 95-77-7583Nendwocoz esterase Auto test strip Ql (U) NegativeNegativeMercy Health – The Jewish HospitalUrobilinogen Auto test strip (U) [Mass/Vol]Ordered By: Keith Parish on 68-20-0730Vnggtffidbyg (U) [Mass/Vol]Normal mg/dLNormalMercy Health – The Jewish HospitalWBC Auto (Bld) [#/Vol]Ordered By: Keith Parish on 69-85-6006GZX (Bld) [#/Vol]13.7 10*3/uL 3.8-11.6FSelect Medical Specialty Hospital - Cincinnati NorthpH Auto test strip (U)Ordered By: Keith Lugo on 96-94-3711nH (U)5.5 [pH]5.0-9.0[facility] HospitalBasophils Auto (Bld) [#/Vol]Ordered By: Nasir Garcia on 76-77-0089Miifgxrvd (Bld) [#/Vol]0.2 10*3/uL0.0-0.2FSelect Medical Specialty Hospital - [place] NorthBasophils/100 WBC Auto (Bld)Ordered By: Nasir Garcia on 21-36-4215Yyfdttvgz/100 WBC (Bld)1.1 %. [facility] HospitalBilirubin Auto test strip Ql (U)Ordered By: Nasir Garcia on 83-14-6414Yckswbgno Ql (U)NegativeNegSelect Medical Specialty Hospital - Cleveland-FairhillBody fluid albumin measurement (mass/volume)Ordered By: Nasir Garcia on 61-49-4114Dqzamyu (Body fld) [Mass/Vol]3.7 g/dL3.2-5.5FSelect Medical Specialty Hospital - [place] NorthCreatinine and Glomerular filtration rate.predicted panel (S/P/Bld)Ordered By: Nasir Garcia on 42-61-0431Gwdrscyjjq [Mass/Vol]0.70 mg/dL 0.44-1.03[facility] HospitalEosinophils Auto (Bld) [#/Vol]Ordered By: Nasir Garcia on 92-23-4792Vwqypfnhuzg (Bld) [#/Vol]0.2 10*3/uL0.0-0.45 [facility] CenterEosinophils/100 WBC Auto (Bld)Ordered By: Nasir Garcia on 11-12-0480Obfmshwcidv/100 WBC (Bld)1.2 %.[facility] HospitalErythrocyte distribution width Auto (RBC) [Ratio]Ordered By: Nasir Garcia on 05-25-1480Iyunmmxvyio distribution width (RBC) [Ratio]22.5 %11.9-15.3 [facility] HospitalEstimated glomerular filtration rate (GFR) non- AmericanOrdered By: Nasir Garcia on 65-40-7304GAC/1.73 sq M.predicted among non-blacks MDRD (S/P/Bld) [Vol rate/Area]> 60 mL/MinMercy Health – The Jewish HospitalGlobulin Calc (S) [Mass/Vol]Ordered By: Nasir Garcia on 12-05-2022 Globulin (S) [Mass/Vol]3.0 g/dLMercy Health – The Jewish HospitalHCG ( test) IA.rapid Ql (U)Ordered By: Nasir Garcia on 40-80-9997JQN ( test) Ql (U)NegativeMercy Health – The Jewish HospitalHematocrit Auto (Bld) [Volume fraction]Ordered By: Nasir Garcia on 40-42-4147Oqompphkcv (Bld) [Volume fraction] 40.2 %34.0-46.4FSelect Medical Specialty Hospital - Cincinnati NorthHemoglobin [Mass/volume] in BloodOrdered By: Nasir Garcia on 85-75-5391Xpiopdqpna (Bld) [Mass/Vol]13.0 g/dL 11.8-15.4FSelect Medical Specialty Hospital - Cincinnati NorthKetones Auto test strip (U) [Mass/Vol] Ordered By: Nasir Garcia on 98-59-5248Cqtjtei (U) [Mass/Vol]NegativeNegative [facility] HospitalLaboratory - Chemistry and Chemistry - challengeOrdered By: Nasir Garcia on 63-40-1808Ovuorw [Catalytic activity/Vol] 32.0 U/Z17-87TkxzxkbypMercy Health – The Jewish HospitalLeukocytes [#/volume] corrected for nucleated erythrocytes in Blood by Automated counOrdered By: Nasir Garcia on 59-64-5830GNU corrected for nucl RBC Auto (Bld) [#/Vol]13.9 10*3/uL3.8-11.6 [facility] HospitalLymphocytes Auto (Bld) [#/Vol]Ordered By: Nasir Garcia on 57-27-4178Sixcnswvwrc (Bld) [#/Vol]3.5 10*3/uL1.00-4.8[facility] HospitalLymphocytes/100 WBC Auto (Bld)Ordered By: Nasir Garcia on 01-27-0244Mdbrcbbnjai/100 WBC (Bld)25.0 %.[facility] HospitalH Auto (RBC) [Entitic mass]Ordered By: Nasir Garcia on 32-99-7113YSX (RBC) [Entitic mass]24.2 pg24.7-34.3FSelect Medical Specialty Hospital - Cincinnati NorthMCHC Auto (RBC) [Mass/Vol]Ordered By: Nasir Garcia on 26-16-9076XXRN (RBC) [Mass/Vol]32.4 g/dL 32.0-35.0[facility] HospitalMCV Auto (RBC) [Entitic vol]Ordered By: Nasir Garcia on 35-09-1447QNG (RBC) [Entitic vol]74.8 wH37-698JkvrzzytpMercy Health – The Jewish HospitalMonocyte distribution width [Entitic volume] in Blood by AutomatedOrdered By: Nasir Garcia on 60-56-3269Nopdlzoo distribution width Auto (Bld) [Entitic vol]19.65 %0.00-20.00[facility] HospitalMonocytes Auto (Bld) [#/Vol]Ordered By: Nasir Garcia on 79-60-6573Gbfvwztjc (Bld) [#/Vol] 0.8 10*3/uL0.0-0.8[facility] HospitalMonocytes/100 WBC Auto (Bld) Ordered By: Nasir Garcia on 62-09-1168Ejntjjqrr/100 WBC (Bld)5.4 %.[facility] HospitalNeutrophils Auto (Bld) [#/Vol]Ordered By: Nasir Garcia on 71-97-7392Wexggundjtr (Bld) [#/Vol]9.3 10*3/uL1.8-7.7FSelect Medical Specialty Hospital - Cincinnati NorthNeutrophils/100 WBC Auto (Bld)Ordered By: Nasir Garcia on 12-05-2022 Neutrophils/100 WBC (Bld)67.3 %.[facility] HospitalNo Panel InformationOrdered By: Nasir Garcia on 18-01-7403Ytbioivdt GFR () > 60 mL/MinMercy Health – The Jewish HospitalComment on above:GFR estimated reference range: According to KDOQI guidelines, <60 ml/min/1.73m2 is sufficient todiagnose a patient with chronic kidney disease.Pharmacy Creatinine Clearance (Inqt039.72[facility] HospitalNucleated erythrocytes [Presence] in Blood by Automated countOrdered By: Nasir Garcia on 70-96-1744Omyrvacgk RBC Auto Ql (Bld)0.2 /100{WBC}0-0.5FSelect Medical Specialty Hospital - Cincinnati NorthPlatelet mean volume Auto (Bld) [Entitic vol]Ordered By: Nasir Garcia on 28-51-1450Gdpsdmar mean volume (Bld) [Entitic vol]9.7 fL6.3-10.7FSelect Medical Specialty Hospital - [place] North Platelets Auto (Bld) [#/Vol]Ordered By: Nasir Garcia on 30-94-8778Nebewyvdi (Bld) [#/Vol]283 10*3/yI574-838OyecigckrMercy Health – The Jewish HospitalProtein Auto test strip (U) [Mass/Vol]Ordered By: Nasir Garcia on 64-04-1954Ripwzvu (U) [Mass/Vol] NegativeNegativeMercy Health – The Jewish HospitalProtein [Mass/volume] in Serum or PlasmaOrdered By: Nasir Garcia on 84-47-4518Itpnmvr [Mass/Vol]6.7 g/dL6.1-7.9 [facility] HospitalRBC Auto (Bld) [#/Vol]Ordered By: Nasir Garcia on 74-24-9863NFI (Bld) [#/Vol]5.38 10*6/uL3.60-5.00[facility] Main Campuserum or plasma alanine aminotransferase measurement without P-5'-P (enzymatic activiOrdered By: Nasir Garcia on 84-46-7979JPA No additional P-5'-P [Catalytic activity/Vol]20 U/O10-78FmiyqvyyzWayne HealthCare Main Campuserum or plasma albumin/globulin mass ratioOrdered By: Nasir Garcia on 12-05-2022 Albumin/Globulin [Mass ratio]1.2 {ratio}[facility] Campuserum or plasma alkaline phosphatase measurement (enzymatic activity/volume)Ordered By: Nasir Garcia on 27-42-9634UKZ [Catalytic activity/Vol]102 U/O99-64LhwleqcweWayne HealthCare Main Campuserum or plasma anion gap determinationOrdered By: Nasir Garcia on 45-72-4609Laiii gap [Moles/Vol]13.8 mmol/L6.0-15.0[facility] Campuserum or plasma aspartate aminotransferase measurement (enzymatic activity/volume)Ordered By: Nasir Garcia on 03-13-7149WNL [Catalytic activity/Vol]22 U/U23-98MkhujbcumWayne HealthCare Main Campuserum or plasma calcium measurement (mass/volume)Ordered By: Nasir Garcia on 65-02-8141Ahxdraa [Mass/Vol] 8.9 mg/dL8.2-10.2FSelect Medical TriHealth Rehabilitation Hospitalerum or plasma chloride measurement (moles/volume)Ordered By: Nasir Garcia on 71-64-5982Hcznqyyp [Moles/Vol]102 mmol/J84-014TxepoxcvyWayne HealthCare Main Campuserum or plasma glucose measurement (mass/volume)Ordered By: Nasir Garcia on 67-88-5367Uxidklo [Mass/Vol]123 mg/dR12-586NhiarvvkeMercy Health – The Jewish HospitalComment on above:ADA recommended reference rangeRandom Glucose Reference Range is dependent on time and content of last meal. Glucose of more than 200 mg/dL in a nonstressed, ambulatory subject supports the diagnosisof Diabetes Mellitus.Serum or plasma potassium measurement (moles/volume)Ordered By: Nasir Garcia on 12-05-2022 Potassium [Moles/Vol]4.4 mmol/L3.5-5.1FSelect Medical TriHealth Rehabilitation Hospitalerum or plasma sodium measurement (moles/volume)Ordered By: Nasir Garcia on 12-05-2022 Sodium [Moles/Vol]137 mmol/A343-239ChomebsspWayne HealthCare Main Campuserum or plasma total bilirubin measurement (mass/volume)Ordered By: Nasir Garcia on 50-27-7415Vbrzbiayn [Mass/Vol]0.3 mg/dL0.3-1.2FSelect Medical Specialty Hospital - [place] North Serum or plasma total carbon dioxide measurement (moles/volume)Ordered By: Nasir Garcia on 57-60-5824XY7 [Moles/Vol]25.6 mmol/L22.0-30.0[facility] Campuserum or plasma urea nitrogen measurement (mass/volume)Ordered By: Nasir Garcia on 22-06-4815Fqes nitrogen [Mass/Vol]17 mg/dL9-23[facility] HospitalUrine appearanceOrdered By: Nasir Garcia on 23-50-9334Cgdgrsyxgx (U)ClearCleProMedica Fostoria Community HospitalUrine colorOrdered By: Nasir Garcia on 33-00-8705Wrfow (U)YellowYellowMercy Health – The Jewish HospitalUrine glucose measurement by automated test strip (mass/volume)Ordered By: Nasir Garcia on 65-43-9338Spxuxsm Auto test strip (U) [Mass/Vol]Normal mg/dLNoPremier Health Upper Valley Medical CenterUrine hemoglobin detection by automated test stripOrdered By: Nasir Garcia on 53-95-4559Qscncqjvuv Auto test strip Ql (U)NegativeNegSelect Medical Specialty Hospital - Southeast OhioUrine leukocyte esterase detection by automated test stripOrdered By: Nasir Garcia on 84-85-8800Eqnjygoxa esterase Auto test strip Ql (U)NegativeNegSelect Medical Specialty Hospital - Cleveland-FairhillUrine nitrite detection by automated test stripOrdered By: Nasir Garcia on 26-42-5493Xncfkor Auto test strip Ql (U)NegativeNegSelect Medical Specialty Hospital - [place] Urobilinogen Auto test strip (U) [Mass/Vol]Ordered By: Nasir Garcia on 12-05-2022 Urobilinogen (U) [Mass/Vol]Normal mg/dLNoPremier Health Upper Valley Medical Center WBC Auto (Bld) [#/Vol]Ordered By: Nasir Garcia on 39-67-0357VSY (Bld) [#/Vol]13.9 10*3/uL3.8-11.6FSelect Medical Specialty Hospital - [place] NorthpH Auto test strip (U)Ordered By: Nasir Garcia on 96-40-2747uQ (U)1.025 [pH]1.001-1.030[facility] HospitalpH (U)6.5 [pH]5.0-9.0[facility] HospitalAnisocytosis LM Ql (Bld)Ordered By: Renato Kumar on 40-52-9071Howhwvwibvxf Ql (Bld)Marked [facility] HospitalBasophils Auto (Bld) [#/Vol]Ordered By: Renato Kumar on 98-50-0588Wbgsarhij (Bld) [#/Vol]0.2 10*3/uL0.0-0.2FSelect Medical Specialty Hospital - Cincinnati NorthBasophils/100 WBC Auto (Bld)Ordered By: Renato Kumar on 09-07-2022 Basophils/100 WBC (Bld)1.0 %.[facility] HospitalCreatine kinase [Enzymatic activity/volume] in Serum or PlasmaOrdered By: Renato Kumar on 39-93-0339KA [Catalytic activity/Vol]72 U/D44-615CdyaucrovMercy Health – The Jewish HospitalCreatinine and Glomerular filtration rate.predicted panel (S/P/Bld)Ordered By: Renato Kumar on 04-55-3583Hhucyqzjcy [Mass/Vol]0.52 mg/dL0.44-1.03[facility] HospitalEosinophils Auto (Bld) [#/Vol]Ordered By: Renato Kumar on 84-26-6886Wtgjhzcrunc (Bld) [#/Vol]0.1 10*3/uL0.0-0.45[facility] HospitalEosinophils/100 WBC Auto (Bld)Ordered By: Renato Kumar on 09-07-2022 Eosinophils/100 WBC (Bld)0.8 %.[facility] HospitalErythrocyte distribution width Auto (RBC) [Ratio]Ordered By: Renato Kumar on 09-07-2022 Erythrocyte distribution width (RBC) [Ratio]20.7 %11.9-15.3FSelect Medical Specialty Hospital - [place] NorthEstimated glomerular filtration rate (GFR) non- Ordered By: Renato Kumar on 74-27-1880CSX/1.73 sq M.predicted among non-blacks MDRD (S/P/Bld) [Vol rate/Area]> 60 mL/MinMercy Health – The Jewish Hospital Hematocrit Auto (Bld) [Volume fraction]Ordered By: Renato Kumar on 09-07-2022 Hematocrit (Bld) [Volume fraction]37.8 %34.0-46.4FSelect Medical Specialty Hospital - Cincinnati NorthHemoglobin [Mass/volume] in BloodOrdered By: Renato Kumar on 09-07-2022 Hemoglobin (Bld) [Mass/Vol]11.4 g/dL11.8-15.4FSelect Medical Specialty Hospital - [place] [facility] Hypochromia LM Ql (Bld)Ordered By: Renato Kumar on 04-16-3375Ttmvyzmfifv Ql (Bld) ModerateMercy Health – The Jewish HospitalLaboratory - Hematology and Cell counts Ordered By: Renato Kumar on 74-14-4783Johkhdync RBC/100 WBC (Bld) [Ratio]0.0 % 0-0.5FSelect Medical Specialty Hospital - Cincinnati NorthLeukocytes [#/volume] in Blood by Automated countOrdered By: Renato Kumar on 86-54-7501WEL (Bld) [#/Vol]15.2 10*3/uL 4.5-11.0[facility] HospitalLymphocytes Auto (Bld) [#/Vol]Ordered By: Renato Kumar on 21-90-0462Heakiwaybxl (Bld) [#/Vol]3.2 10*3/uL1.00-4.8 [facility] HospitalLymphocytes/100 WBC Auto (Bld)Ordered By: Renato Kumar on 30-78-1834Jswppmxuysc/100 WBC (Bld)20.8 %.[facility] Auto (RBC) [Entitic mass]Ordered By: Renaot Kumar on 77-84-8764PUN (RBC) [Entitic mass]20.2 pg24.7-34.3FSelect Medical Specialty Hospital - [place] NorthMCHC Auto (RBC) [Mass/Vol]Ordered By: Renato Kumar on 79-90-1093DGXA (RBC) [Mass/Vol]30.1 g/dL 32.0-35.0[facility] HospitalMCV Auto (RBC) [Entitic vol]Ordered By: Renato Kumar on 15-39-2823GRJ (RBC) [Entitic vol]67.0 eM54-870SjagxgvnaMercy Health – The Jewish HospitalMacrocytes LM Ql (Bld)Ordered By: Renato Kumar on 42-23-0276Fgootytolf Ql (Bld)SlightMercy Health – The Jewish HospitalMicrocytes LM Ql (Bld)Ordered By: Renato Kumar on 76-54-7902Dscgpdpzyl Ql (Bld)Moderate [facility] HospitalMonocytes Auto (Bld) [#/Vol]Ordered By: Renato Kumar on 25-17-5609Nktfbeuzc (Bld) [#/Vol]0.9 10*3/uL0.0-0.8[facility] HospitalMonocytes/100 WBC Auto (Bld)Ordered By: Renato Kumar on 09-07-2022 Monocytes/100 WBC (Bld)5.9 %.[facility] HospitalNeutrophils Auto (Bld) [#/Vol]Ordered By: Renato Kumar on 66-81-5288Ugbhrtfxrhm (Bld) [#/Vol]10.9 10*3/uL1.8-7.7FSelect Medical Specialty Hospital - Cincinnati NorthNeutrophils/100 WBC Auto (Bld) Ordered By: Renato Kumar on 57-22-4247Nkrayhhyzbr/100 WBC (Bld)71.5 %.[facility] HospitalNo Panel InformationOrdered By: Renato Kumar on 09-07-2022 Estimated GFR ()> 60 mL/MinMercy Health – The Jewish Hospital Comment on above:GFR estimated reference range: According to KDOQI guidelines, <60 ml/min/1.73m2 is sufficient todiagnose a patient with chronic kidney disease.Pharmacy Creatinine Clearance (Eeay077.66[facility] HospitalPlatelet adequacy [Presence] in Blood by Light microscopyOrdered By: Renato Kumar on 06-81-7586Omrvchxel LM Ql (Bld)NormalNormalMercy Health – The Jewish HospitalPlatelet mean volume Auto (Bld) [Entitic vol]Ordered By: Renato Kumar on 90-86-5803Cpwreqzs mean volume (Bld) [Entitic vol]9.1 fL6.3-10.7FSelect Medical Specialty Hospital - Cincinnati NorthPlatelet morphology finding [Identifier] in BloodOrdered By: Renato Kumar on 80-79-5847Vpdyawuf morphology finding Nom (Bld)NormalNormal [facility] HospitalPlatelets Auto (Bld) [#/Vol]Ordered By: Renato Kumar on 24-51-4024Ncemnaqgz (Bld) [#/Vol]275 10*3/zF402-455RuiiwmqzoMercy Health – The Jewish HospitalRBC Auto (Bld) [#/Vol]Ordered By: Renato Kumar on 49-90-3506NKZ (Bld) [#/Vol]5.64 10*6/uL3.60-5.00[facility] [place] morphologyOrdered By: Renato Kumar on 60-00-1222EBI morphology finding Nom (Bld) N/AFSelect Medical Specialty Hospital - [place] NorthRed blood cell stomatocyte detectionOrdered By: Renaot Kumar on 17-40-2163Dawsshdbntbu LM Ql (Bld)SlightWayne HealthCare Main Campuserum or plasma anion gap determinationOrdered By: Renato Kumar on 52-27-8298Chbqm gap [Moles/Vol]16.4 mmol/L6.0-15.0[facility] Main Campuserum or plasma calcium measurement (mass/volume)Ordered By: Renato Kumar on 66-70-4074Zzdfkno [Mass/Vol]9.2 mg/dL8.2-10.2FSelect Medical Specialty Hospital - [place] [facility] Serum or plasma chloride measurement (moles/volume)Ordered By: Renato Kumar on 92-63-9974Jgeiteny [Moles/Vol]103 mmol/A20-039SxedpvzixMercy Health – The Jewish Hospital Serum or plasma creatine kinase MB (CKMB)/total creatine kinase (CK) ratio by calculaOrdered By: Renato Kumar on 68-43-2848BB.MB Calc [Catalytic fraction]1.5 % 0.00-2.50[facility] Campuserum or plasma creatine kinase MB measurement (mass/volume)Ordered By: Renato Kumar on 73-26-4758CO.MB [Mass/Vol]1.1 ng/mL0.6-6.3FSelect Medical TriHealth Rehabilitation Hospitalerum or plasma glucose measurement (mass/volume)Ordered By: Renato Kumar on 14-94-6858Vqgrexi [Mass/Vol] 100 mg/wH25-508SithvrmupMercy Health – The Jewish HospitalComment on above:ADA recommended reference rangeRandom Glucose Reference Range is dependent on time and content of last meal. Glucose of more than 200 mg/dL in a nonstressed, ambulatory subject supports the diagnosisof Diabetes Mellitus.Serum or plasma potassium measurement (moles/volume)Ordered By: Renato Kumar on 91-12-1653Oioodzoaq [Moles/Vol]4.0 mmol/L3.5-5.1FSelect Medical TriHealth Rehabilitation Hospitalerum or plasma sodium measurement (moles/volume)Ordered By: Renato Kumar on 82-10-0770Nihuqi [Moles/Vol]139 mmol/D270-917CmyjhargaWayne HealthCare Main Campuserum or plasma total carbon dioxide measurement (moles/volume)Ordered By: Renato Kumar on 25-46-8356BL5 [Moles/Vol]23.6 mmol/L22.0-30.0[facility] Serum or plasma urea nitrogen measurement (mass/volume)Ordered By: Renato Kumar on 29-66-7281Ydjf nitrogen [Mass/Vol]14 mg/dL9-23[facility] Troponin I.cardiac [Mass/volume] in Serum or Plasma by High sensitivity method Ordered By: Renato Kumar on 06-31-5072Zxhfpspc I.cardiac High sensitivity method [Mass/Vol]5 pg/mL0-[facility] HospitalHCG ( test) IA.rapid Ql (U)Ordered By: Josh Veronica on 68-69-1349UXO ( test) Ql (U) NegativeMercy Health – The Jewish HospitalBasophils Auto (Bld) [#/Vol]Ordered By: Stephanie Babcock on 62-36-7205Mjyqqtcpi (Bld) [#/Vol]0.1 10*3/uL0.0-0.2FSelect Medical Specialty Hospital - [place] NorthBasophils/100 WBC Auto (Bld)Ordered By: Stephanie Babcock on 42-50-3751Jiogqmcph/100 WBC (Bld)0.5 %.[facility] HospitalBlood hemoglobin measurement (mass/volume)Ordered By: Stephanie Babcock on 07-05-2022 Hemoglobin (Bld) [Mass/Vol]10.3 g/dL11.8-15.4FSelect Medical Specialty Hospital - [place] [facility] Blood leukocytes automated count (number/volume)Ordered By: Stephanie Babcock on 06-11-0803QUT (Bld) [#/Vol]13.2 10*3/uL4.5-11.0[facility] Eosinophils Auto (Bld) [#/Vol]Ordered By: Stephanie Babcock on 42-42-0809Ugjqgojumgv (Bld) [#/Vol]0.1 10*3/uL0.0-0.45[facility] Eosinophils/100 WBC Auto (Bld)Ordered By: Stephanie Babcock on 07-05-2022 Eosinophils/100 WBC (Bld)0.8 %.[facility] HospitalErythrocyte distribution width Auto (RBC) [Ratio]Ordered By: Stephanie Babcock on 07-05-2022 Erythrocyte distribution width (RBC) [Ratio]17.0 %11.9-15.3FSelect Medical Specialty Hospital - Cincinnati NorthHematocrit Auto (Bld) [Volume fraction]Ordered By: Stephanie Babcock on 82-47-8145Ynjmwjpzbj (Bld) [Volume fraction]33.6 %34.0-46.4FSelect Medical Specialty Hospital - [place] NorthLaboratory - Hematology and Cell countsOrdered By: Stephanie Babcock on 77-95-6563Koeaeuguk RBC/100 WBC (Bld) [Ratio]0.0 %0-0.5FSelect Medical Specialty Hospital - Cincinnati NorthLymphocytes Auto (Bld) [#/Vol]Ordered By: Stephanie Babcock on 97-00-4491Rahvagdwbwq (Bld) [#/Vol]2.4 10*3/uL1.00-4.8[facility] HospitalLymphocytes/100 WBC Auto (Bld)Ordered By: Stephanie Babcock on 07-05-2022 Lymphocytes/100 WBC (Bld)18.5 %.[facility] HospitalH Auto (RBC) [Entitic mass]Ordered By: Stephanie Babcock on 58-92-6496FCK (RBC) [Entitic mass] 21.8 pg24.7-34.3FSelect Medical Specialty Hospital - [place] NorthMCHC Auto (RBC) [Mass/Vol] Ordered By: Stephanie Babcock on 18-14-5154PNJR (RBC) [Mass/Vol]30.7 g/dL32.0-35.0 [facility] HospitalMCV Auto (RBC) [Entitic vol]Ordered By: Stephanie Babcock on 51-24-4431CVX (RBC) [Entitic vol]71.1 rB57-312QfqvkkiywMercy Health – The Jewish HospitalMonocytes Auto (Bld) [#/Vol]Ordered By: Stephanie Babcock on 40-88-0605Yogkaayyl (Bld) [#/Vol]0.6 10*3/uL0.0-0.8[facility] HospitalMonocytes/100 WBC Auto (Bld)Ordered By: Stephanie Babcock on 07-05-2022 Monocytes/100 WBC (Bld)4.4 %.[facility] HospitalNeutrophils Auto (Bld) [#/Vol]Ordered By: Stephanie Babcock on 15-41-0865Tzrtsxtjqci (Bld) [#/Vol] 10.0 10*3/uL1.8-7.7FSelect Medical Specialty Hospital - Cincinnati NorthNeutrophils/100 WBC Auto (Bld)Ordered By: Stephanie Babcock on 19-40-0427Niaprvrajwf/100 WBC (Bld)75.8 %. [facility] HospitalPlatelet mean volume Auto (Bld) [Entitic vol] Ordered By: Stephanie Babcock on 56-68-7317Ibmjljtx mean volume (Bld) [Entitic vol] 9.5 fL6.3-10.7FSelect Medical Specialty Hospital - [place] NorthPlatelets Auto (Bld) [#/Vol] Ordered By: Stephanie Babcock on 59-05-4215Brsesqaau (Bld) [#/Vol]367 10*3/cC712-654 [facility] HospitalRBC Auto (Bld) [#/Vol]Ordered By: Stephanie Babcock on 53-46-6478FVS (Bld) [#/Vol]4.72 10*6/uL3.60-5.00[facility] HospitalAutomated erythrocytes count in urine sediment (number/area)Ordered By: Jesus Petersen on 91-36-8464BXV Auto (Urine sed) [#/Area]Innumerable [HPF]0-4 [facility] HospitalAutomated leukocytes count in urine sediment (number/area)Ordered By: Jesus Petersen on 25-32-6905IZB Auto (Urine sed) [#/Area]1-2 [HPF]0-4FSelect Medical Specialty Hospital - Cincinnati NorthBasophils Auto (Bld) [#/Vol]Ordered By: Jesus Petersen on 49-79-1473Zgvybhoya (Bld) [#/Vol]0.1 10*3/uL 0.0-0.2FSelect Medical Specialty Hospital - Cincinnati NorthBasophils/100 WBC Auto (Bld)Ordered By: Jesus Petersen on 71-08-6941Ojfnlbhws/100 WBC (Bld)0.5 %.[facility] HospitalBilirubin Test strip Ql (U)Ordered By: Jesus Petersen on 06-04-2022 Bilirubin Ql (U)NegativeNegativeMercy Health – The Jewish HospitalBlood hemoglobin measurement (mass/volume)Ordered By: Jesus Petersen on 06-04-2022 Hemoglobin (Bld) [Mass/Vol]10.5 g/dL11.8-15.4FSelect Medical Specialty Hospital - [place] [facility] Blood leukocytes automated count (number/volume)Ordered By: Jesus Petersen on 77-16-9829VPW (Bld) [#/Vol]14.2 10*3/uL4.5-11.0[facility] Color Auto (U)Ordered By: Jesus Petersen on 91-64-0865Lwxhf (U)OrangeYellow [facility] HospitalEosinophils Auto (Bld) [#/Vol]Ordered By: Jesus Petersen on 93-26-1081Ydtddrwcgie (Bld) [#/Vol]0.1 10*3/uL0.0-0.45[facility] HospitalEosinophils/100 WBC Auto (Bld)Ordered By: Jesus Petersen on 83-42-7789Yjaerzjnbpn/100 WBC (Bld)0.9 %.[facility] Erythrocyte distribution width Auto (RBC) [Ratio]Ordered By: Jesus Petersen on 99-12-2165Xxfkqsswvve distribution width (RBC) [Ratio]16.3 %11.9-15.3FSelect Medical Specialty Hospital - Cincinnati NorthHCG ( test) IA.rapid Ql (U)Ordered By: Jesus Petersen on 53-33-0466BTF ( test) Ql (U)NegativeMercy Health – The Jewish HospitalHematocrit Auto (Bld) [Volume fraction]Ordered By: Jesus Petersen on 00-12-9271Iplyutjkys (Bld) [Volume fraction]33.3 %34.0-46.4Fire[facility] Medical CenterKetones Auto test strip (U) [Mass/Vol]Ordered By: Jesus Petersen on 94-17-1210Xsnykdj (U) [Mass/Vol]NegativeNegativeMercy Health – The Jewish HospitalLaboratory - Hematology and Cell countsOrdered By: Jesus Petersen on 53-26-8407Axejazxua RBC/100 WBC (Bld) [Ratio]0.0 %0-0.5FSelect Medical Specialty Hospital - [place] NorthLaboratory - UrinalysisOrdered By: Jesus Petersen on 06-04-2022 Hyaline casts LM Ql (Urine sed)0-8 [LPF]0-8[facility] Lymphocytes Auto (Bld) [#/Vol]Ordered By: Jesus Petersen on 65-31-1308Mcssbphkicy (Bld) [#/Vol]3.1 10*3/uL1.00-4.8[facility] Lymphocytes/100 WBC Auto (Bld)Ordered By: Jesus Petersen on 06-04-2022 Lymphocytes/100 WBC (Bld)21.9 %.[facility] Auto (RBC) [Entitic mass]Ordered By: Jesus Petersen on [id number] (RBC) [Entitic mass] 23.9 pg24.7-34.3FSelect Medical Specialty Hospital - [place] NorthMCHC Auto (RBC) [Mass/Vol] Ordered By: Jesus Petersen on [id number] (RBC) [Mass/Vol]31.4 g/dL32.0-35.0 [facility] HospitalMCV Auto (RBC) [Entitic vol]Ordered By: Jesus Petersen on 46-85-5693WEU (RBC) [Entitic vol]76.2 xS16-100JgyrjiurkMercy Health – The Jewish HospitalMonocytes Auto (Bld) [#/Vol]Ordered By: Jesus Petersen on 51-04-2847Fqzekrpga (Bld) [#/Vol]0.8 10*3/uL0.0-0.8[facility] HospitalMonocytes/100 WBC Auto (Bld)Ordered By: Jesus Petersen on 06-04-2022 Monocytes/100 WBC (Bld)5.6 %.[facility] HospitalNeutrophils Auto (Bld) [#/Vol]Ordered By: Jesus Petersen on 85-27-3546Lufstizzhzb (Bld) [#/Vol] 10.1 10*3/uL1.8-7.7FSelect Medical Specialty Hospital - Cincinnati NorthNeutrophils/100 WBC Auto (Bld)Ordered By: Jesus Petersen on 96-64-3650Wtceosymvtk/100 WBC (Bld)71.1 %. [facility] HospitalNitrite Test strip Ql (U)Ordered By: Jesus Petersen on 81-83-6443Hwfrhch Ql (U)NegativeNegSelect Medical Specialty Hospital - Cleveland-FairhillPlatelet mean volume Auto (Bld) [Entitic vol]Ordered By: Jesus Petersen on 98-25-7793Sejstpib mean volume (Bld) [Entitic vol]9.8 fL6.3-10.7FSelect Medical Specialty Hospital - Cincinnati NorthPlatelets Auto (Bld) [#/Vol]Ordered By: Jesus Petersen on 99-34-7200Ckchmyetd (Bld) [#/Vol]321 10*3/jS966-020ItwtuqlanMercy Health – The Jewish HospitalProtein Auto test strip (U) [Mass/Vol]Ordered By: Jesus Petersen on 56-10-0729Dzfpbhv (U) [Mass/Vol]NegativeNegSelect Medical Specialty Hospital - Cleveland-FairhillRBC Auto (Bld) [#/Vol]Ordered By: Jesus Petersen on 07-77-6032PBL (Bld) [#/Vol]4.37 10*6/uL3.60-5.00[facility] Main Campuspecific gravity Auto test strip (U) [Rel density]Ordered By: Jesus Petersen on 48-09-8761Ujtnsqsq gravity (U) [Rel density]1.0081.001-1.030[facility] Squamous epithelial cells detection in urine sediment by light microscopyOrdered By: Jesus Petersne on 81-82-3356Mumuohaovi cells.squamous LM Ql (Urine sed)1-2 [HPF]0-2FSelect Medical Specialty Hospital - Cincinnati NorthUrine bacteria detection by automated methodOrdered By: Jesus Petersen on 78-84-8120Woqejget Auto Ql (U)None seenNone SeenMercy Health – The Jewish HospitalUrine clarity by refractometry automated Ordered By: Jesus Petersen on 23-87-6442Gwtftme Refractometry automated (U)Clear ClearMercy Health – The Jewish HospitalUrine glucose measurement by automated test strip (mass/volume)Ordered By: Jesus Petersen on 30-29-4694Rjcatlx Auto test strip (U) [Mass/Vol]Normal mg/dLNormAultman Orrville HospitalUrine hemoglobin detection by automated test stripOrdered By: Jesus Petersen on 57-19-7589Rqhpjtmbcz Auto test strip Ql (U)3+NegativeMercy Health – The Jewish HospitalUrine leukocyte esterase detection by automated test stripOrdered By: Jesus Petersen on 26-51-5066Vzcncrqzr esterase Auto test strip Ql (U)Negative NegativeMercy Health – The Jewish HospitalUrobilinogen Auto test strip (U) [Mass/Vol]Ordered By: Jesus Petersen on 26-80-3560Ijosimjtdpdg (U) [Mass/Vol] Normal mg/dLNoPremier Health Upper Valley Medical CenterpH Auto test strip (U)Ordered By: Jesus Petersen on 30-23-8585gP (U)6.0 [pH]5.0-9.0[facility] HospitalBasophils Auto (Bld) [#/Vol]Ordered By: Stephanie Babcock on 05-30-2022 Basophils (Bld) [#/Vol]0.1 10*3/uL0.0-0.2FSelect Medical Specialty Hospital - [facility] North Basophils/100 WBC Auto (Bld)Ordered By: Stephanie Babcock on 68-16-8634Vnszdktgf/100 WBC (Bld)0.8 %.[facility] HospitalBlood anisocytosis detection Ordered By: Stephanie Bbacock on 17-50-2703Batqjqvzuimg Ql (Bld)SlightMercy Health – The Jewish HospitalBlood hemoglobin measurement (mass/volume)Ordered By: Stephanie Babcock on 89-21-1973Iiomchwkbu (Bld) [Mass/Vol]10.5 g/dL11.8-15.4 [facility] HospitalBlood leukocytes automated count (number/volume)Ordered By: Stephanie Babcock on 89-65-3021KOV (Bld) [#/Vol]8.1 10*3/uL4.5-11.0[facility] HospitalBlood polychromasia detection by light microscopyOrdered By: Stephanie Babcock on 92-21-4859Wijqyvcoslhyl LM Ql (Bld)SlightMercy Health – The Jewish HospitalCOVID-19 Positive/NegativeOrdered By: Jah Almonte on 33-58-1496YSZA-CoV-2 (COVID-19) N gene JUDIT+probe Ql (Resp) PositiveNegativeMercy Health – The Jewish HospitalComment on above:Positive results will only be called to Providers for the following groups of patients: Pre-Surgical Testing, Emergency Room, and Inpatients. Results called at 1029 on 05/30/22 Testing for SARS-CoV-2 by RT-PCR This test was developed and its performance characteristics determined by [employer] and validated at the [facility]. This test has not been FDA [...] of time the declaration that circumstances exist ju stifying the authorization of the emergency use of in vitro diagnostic tests for detection of SARS-CoV-2 virus and/or diagnosis of COVID-19 infection under section 564(b)(1) of the Act, 21 U.S.C. 360bbb-3(b)(1), unless the authorization is terminated or revoked sooner.Positive results will only be called to Providers for the following groups of patients: Pre-Surgical Testing, Emergency Room, and Inpatients.Results calledat 1029 on 05/30/22 Testing for SARS-CoV-2 by RT-PCRThis test was developed and its performance characteristics determined by [employer] and validated at the [facility]. This test has not been FDA [...] unless the authorization is terminated or revoked sooner.COVID-19 SOFIAOrdered By: Jha Almonte on 83-28-3516OBMF-CoV+SARS-CoV-2 (COVID-19) Ag IA.rapid Ql (Resp)PositiveNegative [facility] HospitalComment on above:This is a duplicate Laura SARS Antigen (JESSICA) result to be used for statistical tracking purpose only. Eosinophils Auto (Bld) [#/Vol]Ordered By: Stephanie Babcock on 08-93-4153Tdjglbndrhm (Bld) [#/Vol]0.1 10*3/uL0.0-0.45[facility] Eosinophils/100 WBC Auto (Bld)Ordered By: Stephanie Babcock on 05-30-2022 Eosinophils/100 WBC (Bld)1.5 %.[facility] Jewish HospitalErythrocyte distribution width Auto (RBC) [Ratio]Ordered By: Stephanie Babcock on 05-30-2022 Erythrocyte distribution width (RBC) [Ratio]16.1 %11.9-15.3FSelect Medical Specialty Hospital - Cincinnati NorthHematocrit Auto (Bld) [Volume fraction]Ordered By: Stephanie Babcock on 77-72-0977Spglndyfau (Bld) [Volume fraction]33.6 %34.0-46.4FSelect Medical Specialty Hospital - Cincinnati NorthHypochromia detectionOrdered By: Stephanie Babcock on 05-30-2022 Hypochromia Ql (Bld)ModerateMercy Health – The Jewish HospitalLaboratory - Hematology and Cell countsOrdered By: Stephanie Babcock on 17-22-3843Txqvryims RBC/100 WBC (Bld) [Ratio]0.0 %0-0.5FSelect Medical Specialty Hospital - Cincinnati NorthLymphocytes Auto (Bld) [#/Vol]Ordered By: Stephanie Babcock on 73-72-8843Eblybkeoyiq (Bld) [#/Vol]2.1 10*3/uL1.00-4.8[facility] HospitalLymphocytes/100 WBC Auto (Bld)Ordered By: Stephanie Babcock on 44-26-8753Khoyiiombfo/100 WBC (Bld)26.5 % .[facility] Auto (RBC) [Entitic mass]Ordered By: Stephanie Babcock on 83-93-5721NVK (RBC) [Entitic mass]24.0 pg24.7-34.3FTriHealthHC Auto (RBC) [Mass/Vol]Ordered By: Stephanie Babcock on 17-03-6778ZXOJ (RBC) [Mass/Vol]31.1 g/dL32.0-35.0[facility] HospitalMCV Auto (RBC) [Entitic vol]Ordered By: Stephanie Babcock on 71-91-9321BQV (RBC) [Entitic vol]77.0 bQ48-706JwqwzrwesMercy Health – The Jewish HospitalMonocytes Auto (Bld) [#/Vol]Ordered By: Stephanie Babcock on 46-28-0334Isqykvlwe (Bld) [#/Vol]0.6 10*3/uL0.0-0.8[facility] HospitalMonocytes/100 WBC Auto (Bld) Ordered By: Stephanie Babcock on 29-49-8094Xlcdlvesx/100 WBC (Bld)7.2 %.[facility] Jewish HospitalNeutrophils Auto (Bld) [#/Vol]Ordered By: Stephanie Babcock on 47-87-7216Qzdkvjbzvby (Bld) [#/Vol]5.2 10*3/uL1.8-7.7FSelect Medical Specialty Hospital - Cincinnati NorthNeutrophils/100 WBC Auto (Bld)Ordered By: Stephanie Babcock on 59-08-5350Xaovmdsngrb/100 WBC (Bld)64.0 %.[facility] HospitalNo Panel InformationOrdered By: Stephanie Babcock on 43-64-8296Tufau PlateletsModerate [facility] HospitalPlatelet EstimateNormalNormalMercy Health – The Jewish HospitalPlatelet Morphology CommentN/AFSelect Medical Specialty Hospital - Cincinnati NorthNo Panel InformationOrdered By: Jah Almonte on 30-50-4054PDXV Antigen (LFIA) [facility] HospitalPlatelet mean volume Auto (Bld) [Entitic vol] Ordered By: Stephanie Babcock on 99-08-1104Rauvetsx mean volume (Bld) [Entitic vol] 9.6 fL6.3-10.7FSelect Medical Specialty Hospital - Cincinnati NorthPlatelets Auto (Bld) [#/Vol] Ordered By: Stephanie Babcock on 98-43-3472Kxpxutkka (Bld) [#/Vol]235 10*3/tL335-119 [facility] HospitalRBC Auto (Bld) [#/Vol]Ordered By: Stephanie Babcock on 54-61-8392MVF (Bld) [#/Vol]4.36 10*6/uL3.60-5.00[facility] morphologyOrdered By: Stephanie Babcock on 25-07-9612IYW morphology finding Nom (Bld)N/AFSelect Medical Specialty Hospital - [facility] North.Auto Diff 1on 05-29-2022 Auto [place] %5 %Normal1-12Maohio state university [facility] HospitalComment on above:Performed By: #### [id number], [id number], 9400593, 1472299, [id number], 9943475, 3215126 #### [facility] (DEFAULT) [address] [place] [address] 54277Zkaz Abs#0.0 v75Zdzppa4.0-0.2Magrmckitrick hospital HospitalComment on above:Performed By: #### [id number], 71858831, 2786090, 1653142, 3067798377, 3109662, 2531813 #### [facility] (DEFAULT) [address] [place] [address] 39137Fnddjolox/100 WBC (Bld)0.1 %Low0.2-2.0[facility] Hospital Comment on above:Performed By: #### [id number], 01206275, 9511813, 6916312, 1833893076, 1644464, 4096785 #### [facility] (DEFAULT) [address] [place] [address] 54413Drz Abs#0.1 b94Tevwqx7.0-0.4Magrmckitrick hospital HospitalComment on above:Performed By: #### [id number], 55403935, 9223527, 3314796, 6435699478, 0189304, 1493475 #### [facility] (DEFAULT) [address] [place] [address] 74637Msbzbvusouh/100 WBC (Bld)0.8 %Low0.9-4.0[facility] Comment on above:Performed By: #### [id number], 74635957, 1320297, 5197786, 6161127670, 7552184, 3476862 #### [facility] (DEFAULT) [address] [place] [address] 66877Bxywg Abs#1.[address]mah2.3-[address].9[facility] HospitalComment on above:Performed By: #### [id number], 42123333, 8952728, 7851949, 0712696365, 0676281, 3206756 #### [facility] (DEFAULT) [address] [place] [address] 24260Xefuvobawla/100 WBC (Bld)15 %Stwblz33-46Uwxvnima Hospital Comment on above:Performed By: #### [id number], 23609957, 5160265, 2846960, 7636895207, 1921779, 6326785 #### [facility] (DEFAULT) [address] [place] [address] 03356Gxkf Abs#0.[address]bnoe3.0-[address].8[facility] HospitalComment on above:Performed By: #### [id number], 27470665, 0791416, 5876288, 5141842096, 1005019, 2291811 #### [facility] (DEFAULT) [address] [place] [address] 76745Esjk Abs#8.5 o98Qsmtmj4.5-9.2Msumma health barberton campus HospitalComment on above:Performed By: #### [id number], 82247769, 9198339, 0716605, 5580515989, 3634840, 6774042 #### [facility] (DEFAULT) [address] [place] [address] 72889Fnogxmryopb/100 WBC (Bld)80 %Uyxglb57-40Kbeokqim Hospital Comment on above:Performed By: #### [id number], 54452569, 7844915, 3386688, 0706604151, 3574514, 0104033 #### [facility] (DEFAULT) [address] [place] [address] 17628LUX w/ Auto Diffon 05-37-2935Htiprhnukxw distribution width (RBC) [Ratio]16.5 %High11.5-15.0[facility] HospitalComment on above: Performed By: #### [id number], 51480967, 1559938, 8601209, 9484528134, 0607389, 0626590 #### [facility] (DEFAULT) [address] [place] [address] 47915Bbxcproxnx (Bld) [Volume fraction]36.0 %Lckbdd48.7-40.4 [facility] - AkronComment on above:Performed By: #### [id number], 01768875, 8664174, 8542970, 3148950019, 6138405, 0610680 #### [facility] (DEFAULT) [address] [place] [address] 08487Xbdzozkaba (Bld) [Mass/Vol]11.2 g/dLLow11.3-15.9[facility] HospitalComment on above:Performed By: #### [id number], 19921294, 0491272, 6321635, 1810132672, 8552124, 3157647 #### [facility] (DEFAULT) [address] [place] [address] 09638Tphxt WBC10.7 j48Sgipgel Interpretation CodeSt. Elizabeth Hospital HospitalComment on above:Performed By: #### [id number], 51906822, 3152698, 2319721, 0678109436, 0366718, 1395144 #### [facility] (DEFAULT) [address] [place] [address] 93387Gjn Diff?AutoNormalSt. Elizabeth Hospital HospitalComment on above: Performed By: #### [id number], 69162042, 2106236, 7555789, 0369729523, 6220683, 3743981 #### [facility] (DEFAULT) [address] [place] [address] 77920EEO (RBC) [Entitic mass]24 rhVyefoj08-54Jusfovyr Hospital Comment on above:Performed By: #### [id number], 10890515, 1264997, 1436324, 4897648269, 9551548, 7127736 #### [facility] (DEFAULT) [address] [place], [place] [address]HC (RBC) [Mass/Vol]31 g/oUIvxuaj06-68Piwghsls Hospital Comment on above:Performed By: #### [id number], 07119566, 3206502, 0379941, 2886969918, 0981707, 5287722 #### [facility] (DEFAULT) [address] [place], [place] [address]MCV (RBC) [Entitic vol]78 sSPyf54-256Dsa[facility] Comment on above:Performed By: #### [id number], 95633048, 7890962, 2459644, 7226844651, 9597635, 3919776 #### [facility] (DEFAULT) [address] [place] [address] 20805Eprducbt420 n49Xlbamg341-136Mzhylgzq HospitalComment on above:Performed By: #### [id number], 55064699, 7569277, 8270583, 2716120047, 9304022, 4299732 #### [facility] (DEFAULT) [address] [place] [address] 97865Zorgouqq mean volume (Bld) [Entitic vol]11.9 fLHigh 6.3-10.2Msumma health [facility] HospitalComment on above:Performed By: #### [id number], 39660707, 8015409, 4351510, 9870010696, 2538477, 5506064 #### [facility] (DEFAULT) [address] [place] [address] 43771VSZ3.62 y78Diovej2.70-5.30[facility] HospitalComment on above:Performed By: #### [id number], 02353488, 5754191, 7961579, 6116264741, 4293543, 8225337 #### [facility] (DEFAULT) [address] [place] [address] 16466NPZ59.7 a96Zfhh3.5-10.5[facility] - AkronComment on above: Performed By: #### [id number], 75788056, 6274269, 5786032, 9079577851, 1011832, 9635811 #### [facility] (DEFAULT) [address] [place] [address] 77874GGN Standardon 55-73-9781xBSO Non AA>60Invalid Interpretation [facility] HospitalComment on above:Performed By: #### [id number], 93414613, 5214897682 #### [facility] (DEFAULT) [address] [place] [address] 64478eICU AA>60Invalid Interpretation [facility] Comment on above:Result Comment: Chronic Kidney disease could be indicated at eGFRs of less than 60 ml/min/1.73m2. Kidney Failure is indicated at less than 15 ml/min/1.83g7Wtsrfudpr By: #### [id number], 09721491, [id number] #### [facility] (DEFAULT) [address] [place] [address] 12552Wnhpmns [Mass/Vol]4.0 g/dLNormal3.5-5.0[facility] Comment on above:Performed By: #### [id number], 94255930, 4960938220 #### [facility] (DEFAULT) [address] [place] [address] 37044Robunlw/Globulin [Mass ratio]1.4 {ratio}Normal1.4-2.6 [facility] - AkronComment on above:Performed By: #### [id number], 31280777, 1747879645 #### [facility] (DEFAULT) [address] [place] [address] 01595Veb Phos91 IU/AMeviwe25-09Dxqeozak HospitalComment on above:Performed By: #### [id number], 38880090, 5303348372 #### [facility] (DEFAULT) [address] [place] [address] 01595NFH [Catalytic activity/Vol]18.0 U/FSyjduq70.0-54.0 [facility] HospitalComment on above:Performed By: #### [id number], 98953169, 4559644377 #### [facility] (DEFAULT) [address] [place] [address] 81926Zqgoz gap [Moles/Vol]13.0 mmol/LNormal5.0-19.0[facility] HospitalComment on above:Performed By: #### [id number], 02185236, 3077423266 #### [facility] (DEFAULT) [address] [place] [address] 27318DCX [Catalytic activity/Vol]22 U/HFyrnon85-39Gltvwohp HospitalComment on above:Performed By: #### [id number], 21548369, 0514708973 #### [facility] (DEFAULT) [address] [place] [address] 08831Ymgx Total0.3 mg/dLNormal0.3-1.2MAultman Alliance Community HospitalComment on above:Performed By: #### [id number], 21889145, 7754369228 #### [facility] (DEFAULT) [address] [place] [address] 35470Umeqcmq [Mass/Vol]8.8 mg/dLLow8.9-10.3Msum[facility] Hospital Comment on above:Performed By: #### [id number], 73790008, 0521022532 #### [facility] (DEFAULT) [address] [place] [address] 70621Qayomjqn [Moles/Vol]103 mmol/CQvcweo953-351Erhhmbok HospitalComment on above:Performed By: #### [id number], 53878774, 6236573277 #### [facility] (DEFAULT) [address] [place] [address] 73491WK9 [Moles/Vol]24 mmol/QNrqqvd99-67Tzqleouo Hospital Comment on above:Performed By: #### [id number], 61174077, 5350339956 #### [facility] (DEFAULT) [address] [place] [address] 69694Mpnuqzjzbm [Mass/Vol]0.76 mg/dLNormal0.60-1.30[facility] HospitalComment on above:Performed By: #### 506752350, 75091748, 2785797618 #### [facility] (DEFAULT) [address] [place] [address] 52036Mokrfbww (S) [Mass/Vol]2.9 g/dLNormal1.5-4.3Msumma health [facility] HospitalComment on above:Performed By: #### [id number], 98865405, 9858944243 #### [facility] (DEFAULT) [address] [place] [address] 56269Lweoyri [Mass/Vol]171.0 mg/dWEsfb38.0-118.0[facility] HospitalComment on above:Performed By: #### [id number], 30630793, 6555844374 #### [facility] (DEFAULT) [address] [place] [address] 41075Gteqiyzclb076 mOsm/LInvalid Interpretation CodeSt. Elizabeth Hospital HospitalComment on above:Performed By: #### [id number], 57640003, 2176694247 #### [facility] (DEFAULT) [address] [place] [address] 73170Kzbuhzcds [Moles/Vol]3.1 mmol/LLow3.6-5.1MAultman Alliance Community Hospital Comment on above:Performed By: #### [id number], 88459602, [id number] #### [facility] (DEFAULT) [address] [place] [address] 04137Emkgzrn [Mass/Vol]6.9 g/dLNormal6.5-8.1Msum[facility] Hospital Comment on above:Performed By: #### [id number], 59250806, 2338559962 #### [facility] (DEFAULT) [address] [place] [address] 63767Inqspv [Moles/Vol]137.0 mmol/RPkkvmz686.0-144.0[facility] HospitalComment on above:Performed By: #### [id number], 07847903, [id number] #### [facility] (DEFAULT) [address] [place], [place] [address]Fcre nitrogen [Mass/Vol]16 mg/dLNormal8-26MaMercy Health Defiance HospitalComment on above:Performed By: #### [id number], 81087933, [id number] #### [facility] (DEFAULT) [address] [place] [address] 67707Uabg nitrogen/Creatinine [Mass ratio]21.0 mg/mgHigh 4.6-16.2Msum[facility] HospitalComment on above:Performed By: #### [id number], 83797877, [id number] #### [facility] (DEFAULT) [address] [place] [address] 28298XJ Clinical Summaryon [id number] Clinical Summary [facility] Emergency Department [address] [place] [address] ED Clinical Summary PERSON INFORMATION Name: NE KEITA Age: 36 Years Sex: FEMALE : 1985 MRN: Acct#: Visit Reason: VAGINAL BLEEDING Arrival: 05/29/2022 16:07:55 Discharge: 05/29/2022 19:00:00 LOS: 000 02:53 Check In: 05/29/2022 16:07:55 Checkout:05/29/2022 19:00:00 Address: [address] [place] [address] PCP: Provider, None PROVIDER INFORMATION Provider Role Assigned Unassigned Kaiden Mcduffie PA-C ED PA 05/29/2022 16:09:09 Yahaira Espana NEGOTIATIONS DIRECTOR Nurse 05/29/2022 16:58:49 VITALS INFORMATION Vital Sign Triage Latest Temperature Tympanic Temperature Temporal Artery Pulse Rate 96 bpm 96 bpm O2 Sat 97 % 97 % Respiratory Rate 18 br/min 18 br/min Blood Pressure /71 mmHg /71 mmHg MEDICAL INFORMATION Medications Given: Allergy Information: Independence; Latex Allergy; penicillins; codeine PHYSICIAN DOCUMENTATION Patient: [...] emergency department with her daughter with chief complaintof heavy vaginal bleeding. Patient states a history of heavy vaginal bleeding and irregular bleeding in which she is scheduled to have a hysterectomy with her keyliner Dr. Babcock at [facility] around the 13 of July. Patient states [...] abdominal pain. Patient states she lives in [place] but is here in town for a which [place]. States she was eating lunch when she felt something abnormal in the pelvic region and when she got up to use the restroom. Patient states she had a urgency urinate in which she states she did pass urine but states shethen noticed that her pants are wet and when she had a large amount of bleeding and states she passed a large clot about the size of a wilton. Patient states she continues to have bleeding and has soaked through 4 large pads in which she came into the emergency department for evaluation. Patient states that she has not contacted her keyliner in regards to her visit today. She [...] Health Status Allergies: Allergic Reactions (Selected) Moderate Independence- No reactions were documented. Severity Not Documented [...] Medications Documented Abilify: PO, (more content not included)...[facility] SystemED Note - Physicianon [id number] Note - PhysicianPatient: NE KEITA Age: 36 years Sex: FEMALE : 1985 Associated Diagnoses: Vaginal bleeding; Hypokalemia; Abnormal uterine bleeding Author: Kaiden Mcduffie PA-C Basic Information Time seen: Date & time 05/29/2022 16:33:00. History source: Patient. Arrival mode: Private vehicle. History limitation: None. History of Present Illness 36-year-old female presents here to the emergency department with her daughter with chief complaintof heavy vaginal bleeding. Patient states a history of heavy vaginal bleeding and irregular bleeding in which she is scheduled to have a hysterectomy with her keyliner Dr. Babcock at [facility] around the 13 of July. Patient states [...] abdominal pain. Patient states she lives in [place] but [place] States she was eating lunch when she felt something abnormal in the pelvic region and when she got up to use the restroom. Patient states she had a urgency urinate in which she states she did pass urine but states shethen noticed that her pants are wet and when she had a large amount of bleeding and states she passed a large clot about the size of a wilton. Patient states she continues to have bleeding and has soaked through 4 large pads in which she came into the emergency department for evaluation. Patient states that she has not contacted her keyliner in regards to her visit today. She [...] Health Status Allergies: Allergic Reactions (Selected) Moderate Independence- No reactions were documented. Severity Not Documented [...] history: Resolved Rib pain on right side ([id number]): Resolved.. Surgical history: Biopsy cervical cone cold knife on 04/10/2018 at 32 Years. Biopsy cervical cone cold knife on 01/09/2018 at 32 Years. Cervical biopsy ([id number]) on 12/10/2017 at 32 Years. 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 ECC Negative Colposcopy ([id number]) on 12/10/2017 at 32 Years. (more content not included)...[facility] SystemED Note-Nursingon [id number] Note-NursingPt. admitted to the ED via personal vehicle and walked back to room 6. Pt. complains of vaginal bleeding with [place] size clots. Pt. denies any pain or discomfort at this time. Pt. is alert and orientated x4. Pt. has a steady gait.[facility] Patient Summaryon [id number] [facility] [address] [place] [address] PATIENT DISCHARGE INSTRUCTIONS Patient Information Name: [place] [...] any sudden status changes such as confusion andsleepiness. If you or anyone you know is experiencing suicidal thoughts, mental health, alcohol and/or drug addiction problems; contact the [facility] Pending Sale To [facility] 20/05 Crisis Hotline -Text 4HOPE uw [id number]. If you received any narcotics, sedation, or [...] Stephanie Barlow [address], [address] [place], [place] [id number] Business (1) Within 3 to 5 days Comments: Please follow-up with your keyliner in 3 to 5 days. Please contact his office first thing tomorrow morning to schedule a follow-up appointment. I discussed with him and went over your lab resultsfrom today in regards to heavy or abnormal uterine bleeding which started this afternoon. At this time he would like for you to take a control pill 3 pills daily until you see him in the officeas this is really the only way to slow down uterine bleeding. Other labs appeared within normal limits. Your potassium was slightly low sera given 1 tablet of potassium daily over the next 3 days andfollow-up with primary care provider for reevaluation in regards to potassium level. You are also prescribed iron supplement 1 tablet daily over the next 14 days also encouraged by Dr. Babcock. if you have any increased bleeding develop abdominal pain develop weakness you should go to [facility] emergency department, where your keyliner is at and where you can be seen if needed. You may return here to the emergency department for any worsening or concerning symptoms. Medication Information: The exam and treatment you received today in the [facility] Emergency Department were for an urgent problem and are not intended as complete care. It is important for you to follow up with a doctor, nurse practitioner, or physician?s therapeutic recreation assistant for ongoing care. If your symptoms become worse or you donot improve as expected and you are unable [...] so we can reach you if necessary. [facility] Emergency Department has provided you with a complete list of medications post discharge. Please inform your truckload checker/provider of your visit and for further instruction on these medications. Any specific questions regarding your chronic medications and dosages should be discussed with your primary care physician(s) and/or pharmacist. New Medications [id number], [address], [place] [id number], [phone] ethinyl estradiol-norethindrone (Loestrin 21 1.5/30 oral tablet) [...] 1 tab(s) Oral 3 times a day. amphetamine-dextroamphetamine (Adderall 30 mg oral tablet) 1 tab(s) Oral 2 times a day. ARIP (more content not included)...[facility] SystemExtra Redon 05-29-2022 Tube CollectedYesInvalid Interpretation Magruder HospitalComment on above: Performed By: #### [id number], [id number], [id number], [id number], [id number], [id number], [id number] #### [facility] (DEFAULT) [address] [place] [address] 45866Qdrnti Acidon 52-24-7500Zguphy Acid15.2 mg/dLNormal 4.5-19.8[facility]ronComment on above:Performed By: #### [id number] #### [facility] (DEFAULT) [address] [place] [address] 31764Aofeedtp 59-72-6900Hfetqa Level25.0 IU/GQhvvdm77.0-51.0 [facility]ronComment on above:Performed By: #### [id number], [id number], [id number], 6191486, [id number], [id number], [id number] #### [facility] (DEFAULT) [address] [place] [address] 23999TExy 03-39-9446JLW Coag (PPP) [Relative time]0.96 {INR} Normal0.91-1.11[facility] HospitalComment on above:Performed By: #### [id number], [id number], [id number], [id number], [id number], 9902887, [id number] #### [facility] (DEFAULT) [address] [place] [address] 09011OF88.4 second(s)Normal9.7-11.8[facility] HospitalComment on above:Performed By: #### [id number], [id number], 0887256, 7700251, [id number], 2010136, [id number] #### [facility] (DEFAULT) [address] [place] [address] 04232JAOfm 72-20-6575RJY98 second(s)Zvwupf00-47Itsjucdh HospitalComment on above:Performed By: #### [id number], [id number], [id number], 5038555, [id number], 3479514, [id number] #### [facility] (DEFAULT) [address] [place] [address] 86349Ksxeljeml Test Urine 1on 05-29-2022U PregNegativeNormal [facility] AkronComment on above:Performed By: #### [id number], [id number], [id number] #### [facility] (DEFAULT) [address] [place] [address] 66102V Preg Internal ControlPassNoBlanchard Valley Health System Blanchard Valley HospitalComment on above:Performed By: #### [id number], [id number], [id number] #### [facility] (DEFAULT) [address] [place] [address] 89452DV Waqqm5gy 61-91-6938PG BacteriaNoneNormShelby Memorial HospitalComment on above:Order Comment: Urinalysis Microscopic order added on by Straker Translations Expert Rules system.Performed By: #### [id number], [id number], [id number] #### [facility] (DEFAULT) [address] [place] [address] 44186XM RBCGross BloodMount Carmel Health SystemComment on above: Order Comment: Urinalysis Microscopic order added on by Discern Expert Rules system.Performed By: #### [id number], [id number], [id number] #### [facility] (DEFAULT) [address] [place] [address] 47243CB WBCNone SeenMount Carmel Health SystemComment on above: Order Comment: Urinalysis Microscopic order added on by Straker Transl[employer] Expert Rules system.Performed By: #### [id number], [id number], [id number] #### [facility] (DEFAULT) [address] [place] [address] 02884KX w Culture if Ind Standardon 28-50-6198Glybcsyalv UA [facility] SystemComment on above:Performed By: #### [id number], [id number], [id number] #### [facility] (DEFAULT) [address] [place] [address] 35329Yzyaf (U)RedMount Carmel Health SystemComment on above:Result Comment: Test cannot be satisfactorily determined due to intensely colored urine.Performed By: #### [id number], [id number], [id number] #### [facility] (DEFAULT) [address] [place] [address] 24434Kbpuqiw?Not IndicatedInvalid Interpretation [facility] HospitalComment on above:Result Comment: Result created by rule GL_MAGR_ADD_UA_CULTPerformed By: #### [id number], [id number], [id number] #### [facility] (DEFAULT) [address] [place] [address] 27006Inlegqv (U) [Mass/Vol]NegativeMount Carmel Health System Comment on above:Performed By: #### [id number], [id number], [id number] #### [facility] (DEFAULT) [address] [place] [address] 45811Cukdpin Ql (U)NegativeNormalMagruder HospitalComment on above:Performed By: #### [id number], [id number], [id number] #### [facility] (DEFAULT) [address] [place] [address] 31793Pncdr?Not IndicatedInvalid Interpretation CodeMagruder HospitalComment on above:Result Comment: Result created by rule GL_MAGR_ADD_UA_MICRO Result created by rule GL_MAGR_ADD_UA_MICROPerformed By: #### [id number], [id number], [id number] #### [facility] (DEFAULT) [address] [place] [address] 52755DA BilirubinSMALLAbnormalMaohio state university wexner medical center HospitalComment on above:Performed By: #### [id number], [id number], [id number] #### [facility] (DEFAULT) [address] [place] [address] 90735NA BloodLARGEAbnormalNEGATIVESt. Elizabeth Hospital HospitalComment on above:Performed By: #### [id number], [id number], [id number] #### [facility] (DEFAULT) [address] [place] [address] 51461UX ClarityTURBIDAbnormalCLEARMagrmckitrick hospital HospitalComment on above:Performed By: #### [id number], [id number], [id number] #### [facility] (DEFAULT) [address] [place] [address] 60679DD Leuk EstNegativeNormalNEGATIVEMagruder HospitalComment on above:Performed By: #### [id number], [id number], [id number] #### [facility] (DEFAULT) [address] [place] [address] 46027XZ NitriteNegativeNormalNEGATIVEMaohio state university wexner medical center HospitalComment on above:Performed By: #### [id number], [id number], [id number] #### [facility] (DEFAULT) [address] [place] [address] 70929OJ pH6.6Mdeyxv2-1Uxqnkmvm HospitalComment on above: Performed By: #### [id number], [id number], [id number] #### [facility] (DEFAULT) [address] [place], [place] [address] Protein>=300AbnormalNEGBucyrus Community HospitalComment on above:Performed By: #### [id number], [id number], [id number] #### [facility] (DEFAULT) [address] [place], [place] [address]UA Spec Grav>=1.659Hhypqa3.001-1.035[facility] Comment on above:Performed By: #### [id number], [id number], [id number] #### [facility] (DEFAULT) [address] [place], [place] [address]UA Urobilinogen1.0 mg/dLNormal0.2-1.0[facility] Comment on above:Performed By: #### [id number], [id number], [id number] #### [facility] (DEFAULT) [address] [place], [place] [address]Urine SourceClean CatchNoBlanchard Valley Health System Blanchard Valley HospitalComment on above:Performed By: #### [id number], [id number], [id number] #### [facility] (DEFAULT) [address] [place], [place] [address] Panel InformationOrdered By: Farhat Castro on 04-07-2022 SARS Antigen (LFIA)[facility] HospitalCOVID-19 SOFIAOrdered By: Farhat Castro on 33-61-0941PTFQ-CoV+SARS-CoV-2 (COVID-19) Ag IA.rapid Ql (Resp) NegativeNegativeMercy Health – The Jewish HospitalComment on above:This is a duplicate Laura SARS Antigen (JESSICA) result to be used for statistical tracking purpose only.ANES Jeaneth 05-99-3972QEXV POSTHNO ID: [id number]: Renato Cruz, IService: AnesthesiologyAuthor Type: AnesthesiologistType: Anesthesia PostOpFiled: 04/10/2018 8:52 AMNote Text:POST ANESTHESIA EVALUATION NOTESERVICE DATE: 04/10/2018SERVICE TIME: 8:52 AMDOB: 1985Vitals: 04/10/1808Temp: 36.4 ?C (97.5 ?F) 36.3 ?C(97.3 ?F) 04/10/18085BP: 121/57 131/75 138/57 04/10/1808 0 Pulse: 70 70 73 04/10/1808Resp: 18 18 21 04/10/1808SpO2: 96% 98% 99%Validated Vital Signs: YesPOST ANES STATUS: No apparent anesthetic complications. The patient isappropriately hydrated with stable respiratory and cardiovascular sta tus.Patient has safe and adequate airway control. The patient has appropriatepain relief and no significant post operative nausea or vomiting. Thepatient has achieved baseline mental status.Further assessment by Anesthesia Service: NoneOther Remarks:SIGNATURE: Renato Cruz MD PATIENT NAME: Alexander CarranzaATE: April 10, 2018 : 8:51 AM PAGER/CONTACT #: [phone] [facility] for WomenANES PREOPon [id number] PREOPHNO ID: [id number]: Renato Cruz IService: AnesthesiologyAuthor Type: AnesthesiologistType: Anesthesia PreOpFiled: 04/10/2018 7:20 AMNote Text: ANESTHESIOLOGY DAY OF SURGERY NOTESERVICE DATE: 04/10/2018SERVICE TIME: 7:19 AMDOB: 1985Procedure(s) (LRB):COLD KNIFE CONIZATION OF UTERINE CERVIX W/ OVIDIO (N/A)Surgeon(s):Mary TreadwellEstimated body mass index is 43.6 kg/m? as calculated from the following: Height as of 04/01/18: 162.6 cm (5' 4 ). Weight as of 04/01/18: 115.2 kg (254 lb).Most recent hematocrit and potassium results:Hematocrit 48.3 04/01/2018Potassium 4.2 04/01/2018ANES DOS/PREOP NOTE:Vit als: 04/10/535339DR: 121/57Pulse: 70Resp: 18Temp: 36.4 ?C (97.5 ?F)TempSrc: Temporal ArterySpO2: 96%ACTIVE PROBLEM LISTScoliosis (And Kyphoscoliosis), IdiopathicLumbagoChronic Pain SyndromeHistory ofScoliosisThoracic Back PainHistory of Noncompliance With Medical TreatmentMyalgia and Myositis, Unsp ecifiedCin Iii (Cervical Intraepithelial Neoplasia Grade Iii) With [...] cold knife surgery- TUBAL LIGATION HX clips- VAGINOSC OPYFAMILY HISTORYProblem Relation Age of Onset- Breast Cancer Maternal Grandmother at age 39- Breast Cancer Maternal Aunt Many cousins also had breast cancer- Cancer Mother Ovarian cancer ; living and wellSocial History:Social HistorySubstance Use Topics- Smoking status: Current Every Day Smoker Packs/day: 0.75 Years: 20.00 Types: Cigarettes- Smokeless tobacco: Never Used- Alcohol use NoNo current facility-administered medications on file prior to encounter.Current Outpatient Prescriptionson File Prior to Encounter:Amphetamine-Dextroamphetamine (ADDERALL) 30 mg tablet Take 30 mg by mouthtwice daily.gabapentin (NEURONTIN) 300 mg capsule Take 300 mg by mouth three timesdaily.ibuprofen (MOTRIN) 600 mg tablet Take 1 tablet by mouth every 6 hours asneeded for Pain.MULTIVIT-MINERALS/FERROUS FUM (MULTI VITAMIN ORAL) Take by mouth oncedaily.FLUoxetine HCl (PROZAC) 40 mg capsule Take 40 mgby mouth once daily.meloxicam (MOBIC) 7.5 mg tablet Take 7.5 mg by mouth once daily.ARIPiprazole (ABILIFY) 10 mg tablet Take 10 mg by mouth once daily.ALPRAZolam (XANAX) 1 mg tablet Take 1 mg by mouth as needed.Current Facility-Administered Medications:lidocaine 10 mg/mL (1 %) 1-2 mg injection (XYLOCAINE) 0.1-0.2 mLINTRADERMAL PRN Rafal (Lineman A Class) Gargalianoslactated ringers infusion 5-30 mL/hr INTRAVENOUS CONTINUOUS Rafal (Lineman A Class)Gargalianos Last Rate: 30 mL/hr at 04/10/18 0707 30 mL/hr at 04/10/18 0707acetaminophen 1,000 mg tab(s) (TYLENOL) 1,000 mg ORAL ONCE Renato Cruz Ipromethazine 12.5 mg tab(s) (PHENERGAN) 12.5 mg ORAL ONCE Esau Arreolaergies: ALLERGIESNo Known AllergiesDOS EXAM: Adequate NPO status: YesAnesthetic risks, benefits, alternatives, personnel and consent discussed:YesPatient agrees to proceed: YesPrevious Anesthesia: No history of adverse event.Airway Assessment: MP 2; N yesenia ROM: Full ROM without neurologic symptoms;Airway Evaluation: Thick neckSymptoms of Sleep Apnea:NoneDentition: Chipped, loose and/or missing Chipped lowerAdditional Physical Exam:Lungs: Lungs clear to auscultation. Good diaphragmatic excursion.Cardiac: normal S1 and S2; no rubs, no murmurs, andno gallopsAdditional Pertinent Findings: N/ABlood Products: Not anticipated for this procedure.Anesthetic Plan: General, Standard ASA MonitorsPain Management Plan: Parenteral or OralASA Class: 2OtherMedical Problems: NoneChronic Beta Ailyn medication administered within 24 hours: N/AI have interviewed and examined the patient. I have reviewed the medicalrecord and/or the pre- anesthesia evaluation, pertinent labs, and testresults.Significant changes in the patient's condition since the History andPhysical, not otherwise documented in primary service progress notes: NoThis contains updated information obtained within 48 hours ofSurgery/Procedure.SIGNATURE: Renato Cruz MD PATIENT NAME: Ne CarranzaATE: April 10, 2018 : 7:19 AM CSN: [id number] [facility] for WomenOPERATIVE NOon [id number] NOHNO ID: [id number]: Mary MahdiService: Gynecology OncologyAuthor Type: PhysicianType: Operative ReportFiled: 04/14/2018 8:59 AMNote Text:OPERATIVE/PROCEDURE REPORTLOG ID: [id number]/PROCEDURE DATE: 04/10/2018INCISION/PROCEDURE START TIME: 7:59 AMINCISION CLOSE/PROCEDURE END TIME: 8:14 AMSURGEON(S)/PROCEDURALIST(S) AND GEOTHERMAL HVAC TECHNICIAN(S):Surgeon(s) and Role: * Mary Treadwell - Primary [...] achieve exposure to the cervix. There were novisible lesion oncervix, squamocolumnar junction was visible. Approximately 10 mL of adilute solution (4 U of 0.05 U/mL of vasopressin in 100 mL of normalsaline) was injected into the cervical stroma and 0.25% marcaine was usedto perform a paracervical block with injection at 4:00 and 8:00 on thecervix. Then stay sutures were applied at 3:00 and 9:00 on the cervix andthis was used for stabilizingthe cervix during the procedure. Thenuterine sound was placed through the cervical canal and was advanced tothe fundus of the uterus. The cervix was measured to be about 2.0-2.5?cm,and a number 11 blade scalpel was used to cut a cone-shaped piece ofcervix. The cervical cone length was approximately2.0. The specimen wassent to pathology. Then endocervical curette was used to obtainendocervical sample. Hemostasis was assured using a ball tip cautery.Hemostasis was excellent. By the end of the david e, Monsel solution wasapplied on the cervix followed by surgicel and the stay sutures were tiedtogether to keep the surgicel in place. hemostasis was assured.Patient tolerated the procedure and all counts were correct x 2. Patienttransferred to the recovery room in a stable condition??Pre-Op/Pre-Pro cedure Diagnosis:?Cervical dysplasia??Post-Op/Post-Procedure Diagnosis:?Same ?Estimated Blood Loss:?20?mls??Specimens:?cervical cone and ECC??Implantable Devices:?None??Drains:?None??Complications: None??I performed the procedure with assistance.?SIGNATURE: Mary Treadwell MD PATIENT NAME: Ne VitalioDATE: April 10, 2018 : 10:44 AM PAGER/CONTACT #:[facility] [phone] ID: [id number]: Rehana Avila (MediWound)Service: (none)Author Type: (none)Type: Planof CareFiled: 04/10/2018 11:36 AMNote Text:PHARMACY BEDSIDE DELIVERY SERVICEPatient Name: Ne KeitaMRN: [id number] marked outpatient medications were Filled at: [place] and deliveredto the patient's bedside to picked up at pharmacyMedication ListSTART taking these medicationsoxyCODONE ir 5 mg capsuleCommonly known as: OXYIRTake 1 capsule by mouth every 6 hours as needed for up to 3 days.CONTINUE taking these medicationsABILIFY 10 mg tabletGeneric drug: ARIPiprazoleADDERALL 30 mg tabletGeneric drug: Amphetamine- DextroamphetamineALPRAZolam 1 mg tabletCommonly known as: XANAXFLUoxetineHCl 40 mg capsuleCommonly known as: PROzacgabapentin 300 [...] them or your Primary Care Provider.Rehana Avila (MediWound)PAGER: [phone] 2017 11:36 [facility] ID: [id number]: Rehana Avila (MediWound)Service: (none)Author Type: (none)Type: Planof CareFiled: 04/10/2018 9:20 AMNote Text:Pharmacy Discharge Medication Service:This patient has elected to [facility] their discharge prescriptions throughthe [facility]. Theprescriptions are currently being processed. A follow-up note will beentered once the prescriptions have been filled and delivered to thepatient. Please contact me with any questions or updates to the patient'sdischarge medications.Rehana Avila (MediWound)DCT Contact Info: [id number] Hospital ID: [id number]: Rehana Avila (MediWound)Service: (none)Author Type: (none)Type: Planof CareFiled: 04/10/2018 9:20 AMNote Text:MASS COMMUNICATIONS INSTRUCTOR BEDSIDE DELIVERY SURVEY1. Patient to use [facility] Bedside Delivery - YES2. If fax, patient would like us to fax prescriptions to Pharmacy ofchoice a. Pharmacy: b. Location: c. Phone:3. Insurance card on file - YES4. Credit card for payment- N/ANo prescriptions yet. Please page [phone] upon discharge.[facility] HospitalURGICAL PATHOLOGYon [id number] PATHOLOGYSpecimen originated from [facility]pec[facility] #: [id number] Physician: MARY TREADWELL MD FINA L DIAGNOSIS1. Endocervical curettings (A) - Fragments of benign endocervical tissue.2. Cervix, cone biopsy (B) - Negative for dysplasia. - See comment. COMMENTB. An immunohistochemical stain, with appropriately staining controls, forp16 performed on block B6 was negative.Laboratory Developed Test (LDT) Disclaimer:Positive and negative controls stain appropriately. Performancecharacteristics of immunohistochemical,immunofluorescent and chromogenicin-situ hybridization tests have been determined by [facility] Skye Salas [facility] Pathology and Laboratory Medicine [place] ([facility]) alireza manner consistent with CLIA requirements. One or more of these tests havenot been cleared or approved by the FDA. [facility] is regulated under CLIA asqualified to perform high-complexity testing. These tests are used forclinical purposes. They should not be regarded as investigational or forresearch.SUMMER/NEERU/ayush 04/13/18Vipin Donahue M.D. Ph.D.(Electronic Signature) ____SPECIMEN SUBMITTEDA: ENDOCERVICAL, CURETTINGS B: CERVIX, CONE BIOPSY [...] The resection margin is okeefe andgranular. There ruben suture that designates 12 o'clock. The specimen isinked as follows: 12 o'clock - blue; 6 o'clock - green; endocervix -orange. The specimen is serially sectioned in a clockwise manner from 1o'clock to 12 o'clock to reveal okeefe and granular cut surfaces. The specimenis entirely submitted in sequential order from 1 to 12 o'clock incorresponding cassettes. PADMINI/justin/04/10/18Gross examination performed at [facility], [address] [address] of Report: 04/15/2018Date of Procedure: 04/10/2018Date of Receipt: 04/10/2018Submitted by: MARY TREADWELL MDLocation: FVORDiagnostic interpretation performed at [facility], [address] [place] [address].[facility] Hospital for WomenComment on above:Performed By: #### PATHS ####[address] [place], [place] [address]NURSING PROGopriscila 04-09-2018 NURSING PRONO ID: [id number]: Yani (Es) Rafy: (none)Author Type: Registered NurseType: Nursing Progress NoteFiled: 04/09/2018 10:02 AMNote Text:PACC Nurse Progress NoteHistory AND Physical:PACC Visit Date: 3-2-03Beplcmym HANDP Date: N/AED visit Date: N/AOutside HANDP Scanned Date: N/ALabs Within Last 6 Months:CBC: Date 04-01-18BMP/CMP: Date 04-01-18 WNLResults reviewed and acceptable per anesthesia guidelines for upcomingsurgeryImaging Within Last 12 Months:N/ACardiac Testing:EKG in last 12Months: Yes: Date: 01-02-18, Comment: Confirmed SRLast Menstrual Period:LMP Date: 2-53-02Efejmldnxpvwuw >1yr: No,S/P Hysterectomy: N/ABMI Percentile (PEDS):N/ARisk Assessment:N/AAnesthesia Review:N/ANarrative:Per PACC HANDP 04-01-18:BMI 44Pre-op Considerations:Significant Anesthesia Considerations: No history of adverse event withanesthesia. Pt. has history scoliosis s/p surgery with Zuniga rodplacement in 1997; she sustained a (right) pneumothorax reported due tothe re-alignment of her spine an anticipated risk. Pt. denies any othercomplications with prior surgeries.Chart Check:Jorge L Rolle RNJune 2017 9:50 [facility] HospitalCNPNon [id number] Telephone ([facility]) -------NE KEITA ([id number]) 1985 FDate Time Provider Department04/02/18 ROXY BRANTLEY (RN) GYNML During your visit today, we recorded the following information about you:Roxy Brantley RN, RN 04/02/2018 9:17 AM SignedCalled patient and LVM to call back for pre-op teachingJeclyde Brantley RN, RN 04/04/2018 3:58 PM SignedProcedure: COLD KNIFE CONIZATION OF UTERINE CERVIXPhysician: Dr. Diazcation: [facility]: [phone] AND Time: 04/10/2018 and TIME will be [...] Celebrex MotrinAggrenox Clinoril Naprosyn(naproxen)Agrylin NSAIDS Pepto-BismolAleve Ecotrin PersantineAlka-Wallace Excedrin PlaquenilAnacin Heparin PlavixAscriptin Herbals PletalAspergum Ibuprofen TiclidBayer Indocin TrentalBextra Midol VanquishBufferin Gingko Biloba Vitamin E (MVI)MEDICATIONS YOU MAY SUBSTITUTEAnacin 3 Fioricet * Tylenol with codeine *Darvocet N 100 * Plenadol Percocet *Datril Sine-Aide TylenolExcedrin PM(*Denotes prescription needed to obtain these medications)Learning Topic: Procedure/Surgery:Instructions reviewed for arrival time, parking and admission.Specific topicsreviewed and discussed with all surgical patients include:No eating, drinking, or smoking after midn ight prior to surgery.Medications as prescribed by anesthesia or the physician.Bowel Prep as indicated.Review of information contained in surgical packetPre-operative and intra-operative general activities were reviewed including:Holding Area, assessments, surgical positioning, and Family Waiting Ar ea.Written post-operative instructions were given to the patient regarding post- opactivity, pain control, symptoms to report.Post-operative instructions provided [...] - IV pain medication after surgery, IV CLASSIFICATION CASE MANAGER if ordered by MD,discharged home with a prescription for PO pain medication, pain managementafter surgery, side effects of pain medication (including constipation,dizziness, drowsiness, and medication interactions).DVT PROPHYLAXIS - Early ambulation, SCDs, injectable anticoagulants (heparin,lovenox, etc)RESPIRATORY - Incentive spirometer, coughing/deep breathing exercises,ambulation.RETURN TO WORK - As directed by physician, please send any [facility] papers tophysician's secretary of state.SYMPTOMS TO NOTIFY MD - Fever, chills, nausea, vomiting, increased or severepain, heavy vaginal bleeding, foul smelling vaginal drainage, pain or swellingin extremities.URGENT SYMPTOMS - Call 911 or go to ER if any shortness of breath, difficultybreathing, or chest pain.HOW TO CONTACT PHYSICIAN - Physician's office phone number given to patient, ifafter hours patient instructed to call entry level machine operator and ask for the doctor textile converter.Patient and family have phone number to call 24 hours/day.Patient Evaluation: Verbalizes understandingPatient and/or family express understanding of upcoming surgery and theoperative process. Questions answered.Follow Up Plan: Follow up as directed by MD.Supplemental Material Given:Pre-operative teaching packet pro vided to the patient:INPATIENT/OUTPATIENT printed instructions; Post-operative instruction sheet,bowel prep instruction sheetFor questions contact: office at [phone] By Daiana Brar As of Date: 04/02/2018(No Known Allergies)Date Reviewed: 04/01/2018Reviewed by: Henny [facility]yesGood [facility]) Nikko - Fully AssessedReason for Visit: Pre-Op Teaching [134]Prescriptions as of 04/02/2018 Sig: DEXTROAMPHETAMINE-AMPHETAMINE* Take 30 mg by mouth twice alexandre* [...] FOR* Thoracic back pain [M54.6] INVALID FOR* Historyof noncompliance with medical treatment*INVALID FOR* Myalgia and myositis, unspecified [[id number]] INVALID FOR* LUCAS III (cervical intraepithelial neoplasia gra*INVALID FOR* More... 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 Thomasion: [facility]: [phone] AND Time: 04/10/2018 and TIME will be [...] This Education Session: NoneThe Following Physical Limitations WereBarriers To This Education Session:NoneInstruction Provided To: PatientMEDICATION INFORMATIONASPIRIN and ADVIL can make you more prone to bleeding after surgery. PleaseSTOP taking these medications at least (7) days before and for (3) days aftersurgery or procedure. Some common medications that contain ASPIRIN or act likeAspirin areTO BE AVOIDED:This is a list of the medications you should avoid:Advill Celebrex MotrinAggrenox Clinoril Naprosyn(naproxen)Agrylin NSAIDS Pepto-BismolAleve Ecotrin PersantineAlka-Wallace Excedrin PlaquenilAnacin Heparin PlavixAscriptin Herbals PletalAspergum Ibuprofen TiclidBayer Indocin TrentalBextra Midol VanquishBufferin Gingko Biloba Vitamin E (MVI)MEDICATIONS YOU MAY SUBSTITUTEAnacin 3 Fioricet * Tylenol with codeine *Darvocet N 100 * Plenadol Percocet *Datril Sine-Aide TylenolExcedrin PM(*Denotes prescription needed to obtain these medications)LearningTopic: Procedure/Surgery:Instructions reviewed for arrival time, parking and admission.Specific topics reviewed and discussed with all surgical patients include:No eating, drinking, or smoking after m idnight prior to surgery.Medications as prescribed by anesthesia or the physician.Bowel Prep as indicated.Review of information contained in surgical packetPre-operative and intra-operative general activities were reviewed including:Holding Area, assessments, surgical positioning, and Family Waiting Area.Written post-operative instructions were given to the patient regarding post-opactivity, paincontrol, symptoms to report.Post-operative instructions provided and reviewed [...] MD.CATHETER - Will be inserted during surgery, youmay go home with a catheter. Ifyou go home with a catheter you will have to come back to the officefor avoiding trial, UTI symptoms reviewed and patient instructed to notify MD of anyof these symptoms.INCISION CARE - Keep incision clean and dry, harjit to be removed 7-10 daysafter surgery, steristrips do not need to be removed by MDBATHING - OK to shower after surgery unless otherwise directed by MD, no tubbaths.PAIN MEDICATION - IV pain medication after surgery, IV CLASSIFICATION CASE MANAGER if ordered by MD,discharged home with a prescription for PO pain medication, pain managementafter surgery, side effects ofpain medication (including constipation,dizziness, drowsiness, and medication interactions).DVT PROPHYLAXIS - Early ambulation, SCDs, injectable anticoagulants (heparin,lovenox, etc)RESPIRATORY - Incentive spirometer, coughing/deep breathing exercises,ambulation.RETURN TO WORK - As directed by physician, please send any [facility] papers [facility] secretary of state.SYMPTOMS TO NOTIFY MD - Fever, chills, mini sea, vomiting, increased or severepain, heavy vaginal bleeding, foul smelling vaginal drainage, pain or swellingin extremities.URGENT SYMPTOMS - Call 911 or go to ER if any shortness of breath, difficultybreathing, or chest pain.HOW TO CONTACT PHYSICIAN - Physician's office phone number given to patient, ifafter hours patient instructed to call entry level machine operator and ask for the doctor textile converter.Patient and family have phone number to call 24 hours/day.Patient Evaluation: Verbalizes understandingPatient and/or family express understanding of upcoming surgery and theoperative process. Questions answered.Follow Up Plan: Follow up as directed by MD.Supplemental Material Given:Pre-operative teaching packet provided to the patient:INPATIENT/OUTPATIENT printed instructions; Post- operative instruction sheet,bowel prep instruction sheetFor questions contact: office at [phone] By Adenike BraralFairview Hospital Jason [phone] (FVPRAD) --------NE KEITA ([id number]) 1985 FDate Time Provider Department01/18/18 JILL FRAIRE (CELESTINE) F[facility]PRAD During your visit today, we recorded the following information about you:Jill Fraire MD 01/18/2018 9:59 PM SignedPatient had CKC on 01/09/[address] Treadwell, [facility] 20cc.She had a large amount of bleeding earlier, called the ambulance. She waspassing blood clots. She denies any pain. She had an exam in the ED and therewas no active bleeding. Her bleeding has decreased. She feels some pressure nowbut no bleeding. Has been out of the ER x 3 hours.She was seen at [facility] ED. She had labwork but was not told anything abouther lab results. She was discharged to home. Reviewed bleeding precautions withher again, she agreeds to re-present to nearest ER if bleeding is severe.Jill Fraire MDGynecologic Oncology FellowCCF Loxycrrfq Mayhugh, RN, RN 01/20/2018 1:27 PM SignedSpoke with patient. She stated that she has had no further bleeding, just veryintermittent scant spotting. Aware of post op appointment on 01/29/2018. Alsoaware if bleeding begins again, local ER.Allergies As of Date: 01/18/2018(No Known Allergies)Date Reviewed: 01/09/2018Reviewed by: Ammy Gordon)ES Meyers - Fully AssessedReason for Visit: Vaginal [...] Take 1 mg by mouth as needed.* DEXTROAMPHETAMINE- AMPHETAMINE* Take 30 mg by mouth once lynn* GABAPENTIN 300 MG CAPSULE Take 300 mg by mouth three ti*Problem List As Of Date 01/18/2018 Noted Resolved IDIOPATHIC SCOLIOSIS [M41.20] INVALID FOR* LUMBAGO [M54.5] INVALID FOR* Chronic pain syndrome [G89.4] INVALID FOR* History of scoliosis [Z87.39]INVALID FOR* Thoracic back pain [M54.6] INVALID FOR* History of noncompliance with medical treatment*INVALID FOR* Myalgia and myositis, unspecified [ZRE6323] INVALID FOR* LUCAS III (cervical intraepithelial neoplasia gra*INVALID FOR* More... Morbid obesity (HCC) [E66.01] INVALID FOR* Tobacco abuse [Z72.0] INVALID FOR* Status:Closed by JILL FRAIRE MD on 01/18/18 [facility] Jeaneth [id number] POSTHNO ID: [id number]: Matthew Landaverde VePeggyervice: AnesthesiologyAuthor Type: AnesthesiologistType: A nesthesia PostOpFiled: 01/09/2018 1:13 PMNote Text:POST ANESTHESIA EVALUATION NOTESERVICE DATE: 01/09/2018SERVICE TIME: 1309DOB: 1985Vitals: 01/10/1812Temp: 36.2 ?C (97.2 ?F) 36.7 ?C (98.1 ?F) 01/10/1812P: 107/78 136/80 126/79 134/93 01/10/1812Pulse: 81 80 68 84 01/10/1812Resp: 18 20 20 28 01/10/1812SpO2: 98% 95% 97% 92%Validated Vital Signs: YesPOST ANES STATUS: No apparent anesthetic complications. The patient i sappropriately hydrated with stable respiratory and cardiovascular status.Patient has safe and adequate airway control. The patient has appropriatepain relief and no significant post operative nauseaor vomiting. Thepatient has achieved baseline mental status.She was an easy mask ventilation but difficult intubation with directlaryngoscopy. Glidescope was also difficult because of anterior larynxandacute angle of OETT. She was intubated on one attempt with directlaryngoscopy and bougie. Post op she has no symptom of sore throat. Shewas given a difficult intubation letter and she understands and has noquestions.Further assessment by Anesthesia Service: NoneOther Remarks:SIGNATURE: Matthew Farrar MD PATIENT NAME: Ne VitalioDATE: January 09, 2018 : 1:08 PM PAGER/CONTACT #: [phone] Israel HospitalANES PREOPon [id number] PREOPHNO ID: [id number]: Matthew Landaverde VeberService: AnesthesiologyAuthor Type: AnesthesiologistType: A claudia PreOpFiled: 01/09/2018 10:37 AMNote Text:REGIONAL ANESTHESIOLOGY DAY OF SURGERY NOTEPATIENT NAME: Ne VitalleninMRN: [id number]: 1985Procedure(s) (LRB):BIOPSY CERVICAL CONE COLD KNIFE (N/A)ENDOCERVICAL CURETTAGE (N/A)Surgeon(s):Mary TreadwellEstimated body mass index is 43.6 kg/(m2) as calculated from thefollowing: Height as of 01/02/18: 162.6 cm (5' 4 ). Weight as of 01/02/18: 115.2kg (254 lb).ASA Class: 2 obese, smokerAdequate NPO [...] since recent history and physical. Seehistory and phy sical for exam findings.Cardiac: Normal S1 and S2; no rubs, no murmurs and no gallopsPatient healthstatus unchanged since recent history and physical. Seehistory and physical for exam findings.Additional pertinent findings: noneOther Medical Problems/ Important Considerations:Denies chest pain andSOB with exertion.Denies GERD.Chronic Beta Ailyn medication administered within 24 hours: N/AAnesthetic risks, benefits, alternatives, personnel and consent discussed:YesPatient agrees to proceed: YesBlood Products: Will accept Blood/Blood ProductsAnesthetic Plan: General LMA; Standard ASA MonitorsPain Management Plan: Parenteral or OralEPIC Chart ReviewACTIVE PROBLEM LISTScoliosis (And Kyphoscoliosis), IdiopathicLumbagoChronic Pain SyndromeHistory of ScoliosisThoracic Back PainHistory of Noncompliance With Medical TreatmentMyalgia and Myositis, UnspecifiedCin Iii (Cervical Intraepithelial N eoplasia Grade Iii) With SevereDysplasiaMorbid Obesity (Hcc)Tobacco AbusePAST MEDICAL HISTORYDiagnosis Date- Adjustment disorder with depressed mood- Cancer (HCC) cervix- Carcinoma in situ of cervix-Congenital musculoskeletal deformity of spine- Convulsions in - Other anxiety states- Severedysplasia of cervixPAST SURGICAL HISTORYProcedure Laterality Date- LAMINECTOMY,LUMBAR [...] tablet Take 1 mg by mouth as needed.Amphetamine-Dextroamphetamine (ADDERALL) 30 mg tablet Take 30 mg by mouthonce daily.gabapentin (NEURONTIN) 300 mg capsule Take 300 mg by mouth three timesdaily.Inpatient medications reviewed in [facility].I have interviewed and exa mined the patient. I have reviewed the medicalrecord and/or the pre-anesthesia evaluation, pertinent labs, and testresults.Significant changes in the patient's condition since the History andPhysical, not otherwise documented in primary service progress notes: NoThis contains updated information obtained within 48 hours ofSurgery/Procedure.SIGNATURE: Matthew Valderrama MD PATIENT NAME: Ne CarranzaATE: January 09, 2018 : 10:36 AM PAGER/CONTACT #:[facility]irmaryBRIEF OP NOTon [id number] OP NOTHNO ID: [id number]: Demetrio Brookeervice: Gynecology OncologyAuthor Type: PhysicianType: Brief Op NoteFiled: 01/09/2018 12:11 PMNote Text:BRIEF OP NOTELOG ID: [id number]/Procedure Date: 01/09/2018Incision/Procedure Start Time: 11:42 AMIncision Close/Procedure End Time: 12:08 PMSurgeon(s)/Proceduralist(s) and Youth Associate(s):Surgeon(s) and Role: * Mary Treadwell - Primary * Demetrio Tuttle - Fellow * Vandana Irizarry - Resident - AssistingProcedure(s): CKC, ECCAnesthesia: GeneralFindings: Large cervix, ectropion. 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 [D06.9]SIGNATURE: Demetrio uTttle MD PATIENT NAME: Ne CarranzaATE: January 09, 2018 : 12:10 PM PAGER/CONTACT #: [phone] Riggs CenterNURSING PROGon [id number] PRONO ID: [id number]: Ammy (Rn) FRANK Meyerservice: NursingAuthor Type: Registered NurseType: Nursing Progress NoteFiled: 01/09/2018 8:02 PMNote Text:PATIENT EDUCATION TOPIC: PROCEDURE / SURGERY: Post-op Teaching: SymptomManagementREADINESS TO LEARNCOGNITIVE ABILITY: Alert and orientedMOTIVATIONTO LEARN: InterestedFAMILY SUPPORT: High - Very involved in pt careINSTRUCTION PROVIDED TO: Patientand family memberPATIENT LEARNS BEST BY: Individual InstructionWritten Instruction - Hand-outsVerbal InstructionFACTORS AFFECTING LEARNING: NonePHYSICAL LIMITATIONS AFFECTING LEARNING: NoneLEARNING RE SPONSEPATIENT/FAMILY RESPONSE: Information received as demonstrated byinterest and questionsMETHOD OF INSTRUCTION: Teachback, Individual instructionWritten instruction - handoutsVerbal instruction including teachbackFOLLOW-UP PLAN: Patient instructed to call with any further issues,Will receive a follow up phone call, and contact information given.INSTRUCTIONAL AIDS USED: NASUPPLEMENTAL MATERIAL PROVIDED TO PATIENT: Post op dischargeinstructions. [facility] NOon [id number] NOHNO ID: [id number]: Mary Reyezervice: Gynecology OncologyAuthor Type: PhysicianType: Operative ReportFiled: 01/09/2018 6:59 PMNote Text:OPERATIVE/PROCEDURE REPORTLOG ID: [id number]/Procedure Date: 01/09/2018Incision/Procedure Start Time: 11:42 AMIncision Close/Procedure End Time: 12:08 PMSurgeon(s)/Proceduralist(s) and Youth Associate(s):Surgeon(s) and Role: * Mary Treadwell - Primary [...] was inserted into the vagina and a Pindall wasused to achieve exposure to the cervix. There were no visible lesion oncervix, squamocolumnar junction was visible. Approximately 10 mL of adilute solution (4 U of 0.05 U/mL of vasopressin in 100 mL of normalsaline) was injected into the cervical stroma and 0.25% marcaine was usedto perform a paracervical block with injection at4:00 and 8:00 on thecervix. Then stay sutures [...] to the recovery room in a stable condition??Pre-Op/Pre-Procedure Diagnosis:?Cervical dysplasia??Post-Op/Post-Procedure Diagnosis:?Same ?Estimated Blood Loss:?20?mls??Specimens:?cervical cone and ECC??Implantable Devices:?None??Drains:?None??Complications: None??I performed the procedure with assistance.SIGNATURE: Mary Treadwell MD PATIENT NAME: Ne VitalioDATE: January 09, 2018 : 6:58 PM PAGER/CONTACT #:[facility] WomenPLAN OF CAREon [phone] OF [facility] ID: [id number]: Alla Robles (Tour Conductor)Service: (none)Author Type: TechnicianType: Plan of CareFiled: 01/13/2018 9:36 AMNote Text:MASS COMMUNICATIONS INSTRUCTOR BEDSIDE DELIVERY SURVEY1. Patient to use [facility] Bedside Delivery - YES2. If fax, patient would like us to fax prescriptions to [facility]. Pharmacy: b. Location: c. Phone:3. Insurance card on file - YES4. Credit card for payment - N/ANormal [facility] HospitalURGICAL PATHOLOGYon [id number] PATHOLOGYSpecimen originated from [facility] #: [id number] Physician: MARY TREADWELL MD FINA L DIAGNOSIS1. Cervix, cone biopsy (A) - High grade squamous intraepithelial lesion(LUCAS 3) with involvement of endocervical glands.- High grade squamous intraepithelial lesion focally extends to the inkedmargin of excision near the 7 o'clock position.2. Endocervical curettings (B) - Minute fragments of benign endocervicaltissue.SMS/kr 01/13/2018 Elvia Acre M.D.(Electronic Signature) SPECIMEN SUBMITTEDA: CERVIX, CONE BIOPSY B: ENDOCERVICAL, CURETTINGS CLINICAL DATACERVICAL INTRAEPITHELIAL NEOPLASIA GRADE III WITH SEVERE DYSPLASIA GROSS DESCRIPTIONA. Received in formalin designated cervix is an oriented portion ofcervix that measures 2.5 x2.4 x 2.2 cm. The ectocervix is granular. Thecervical os is fish-mouth. The resection margin is tanand granular. Thereis a suture that designates 12 [...] filtered in one cassette.WE/justin/01/09/18Gross examination performed at [place] [id number] of Report: 01/15/2018Date of Procedure: 01/09/2018Date of Receipt: 01/09/2018Submitted by: MARY TREADWELL MDLocation: SORCDiagnostic [place] [address].NormalStillman InfirmaryComment on above:Performed By: #### PATHS ####[place], [place] [address]NURSING PRORonal 01-06-2018 NURSING PROGHNO ID: [id number]: Aura (Rn) FRANK Caballeroervice: (none)Author Type: Registered NurseType: Nursing Progress NoteFiled: 01/06/2018 1:16 PMNote Text:01/06/18 1:[address]p.m. Notified Dr. Treadwell's office of WBC-14.07. Labs wereordered by her. Detsiney [facility]neKen[facility] priscila 01-02-2018 NURSING PROCHESTNUT RIDGE [facility] ID: [id number]: Madison (Rn) FRANK Goldenervice: (none)Author Type: Registered NurseType: Nursing Progress NoteFiled: 01/02/2018 3:38 PMNote Text:PACC Nurse Progress NoteHistory AND Physical:PACC Visit Date: 01/02/18 for anesthesiologist review.Original HANDP Date: 12/27/[address] Mathis visitDate: N/AOutside HANDP Scanned Date: N/ALabs Within Last 6 Months:CBC: Date 01/02/18, in processBMP/CMP: Date 01/02/18, in process.Imaging Within Last 12 Months:N/ACardiac Testing:EKG in last 12 Months: Yes: Date: 01/02/18, Comment: Awaiting confirmedread.Last Menstrual Period:LMP Date: 12/17/17Postmenopausal >1yr: No,S/P Hysterectomy: NoBMI Percentile (PEDS):N/ARisk Assessment:N/AAnesthesia Review:N/ANarrative:N/APre-op Considerations:N/AChart Check:IN PROGRESS. CMP/CBC in process. Awaiting confirmed EKAris Golden RNMarch 2017 3:34 PMNormalStillman InfirmaryHOSPon [id number] Patient:Ne Keita DMRN: Height:5' 4 (1.626 m)Weight:254 lb (115.214 kg)Outpatient Medications as of 01/09/18:MULTIVIT-MINERALS/FERROUS FUM (MULTI VITAMIN ORAL)FLUoxetine HCl (PROZAC) 40 mg capsulemeloxicam (MOBIC) 7.5 mg tabletARIPiprazole (ABILIFY) 10 mg tabletALPRAZolam (XANAX) 1 mg tabletAm phetamine-Dextroamphetamine (ADDERALL) 30 mg tabletgabapentin (NEURONTIN) 300 mg capsuleAdmission/Clinic Administered Medications as of 01/09/18:lidocaine 10 mg/mL (1 %) 1-2 mg injection (XYLOCAINE)lactated ringers infusionlactated ringers infusionmeperidine (PF) 12.5 mg injection (DEMEROL)albuterol2.5 mg /3 mL (0.083 %) 2.5 mg (PROVENTIL)HYDROmorphone 0.2 mg injection (DILAUDID)fentaNYL 50 mcg/mL 50 mcg injection (SUBLIMAZE)ketorolac 30 mg injection (TORADOL)ondansetron 4 mg tab(s) (ZOFRAN)ondansetron (PF) 4 mg injection (ZOFRAN)prochlorperazine 10 mg injection (COMPAZINE)labetalol 5 mg injection (NORMODYNE)Problem List:Scoliosis (and kyphoscoliosis), idiopathic [M41.20]Lumbago [M54.5]Chronic pain syndrome [G89.4]History of scoliosis [Z87.39]Thoracic back pain [M54.6]History of noncompliance with medical treatment [Z91.19]Myalgia and myositis, unspecified [[id number]]LUCAS III (cervical intraepithelial neoplasia grade III) with severe dysplasia[D06.9]Morbid obesity (HCC) [E66.01]Tobacco abuse [Z72.0]Allergies:No Known AllergiesDate Verified:01/09/18Lab ValuesLab Value Units Date High LowPOTA* 4.0 mmol/L 01/02/2018 5.1 3.7HEMA* 46.5 % 01/02/2018 46.0 36.0Progress Notes ( PROVIDER ADULT):Rafal Lowe CNP 01/06/2018 2:21 PM SignedReceived [facility] at 14KScheduled for surgery this week w call and find out if patient having any abnormal sx/signsof infection?Bharati Cha, RN, RN 01/06/2018 3:42 PM SignedCalled pt and she states she feels fineSays she had no fever at PATDenies cough, runny nose, congestion.Denies any s/sx of urinary infectionSays she feels great, just nervous about surgeryProgress Notes (STRIP MILL OPERATOR [facility]):Antoinette Cha, RN, RN 01/03/2018 1:21 PM SignedPre-op teachingProcedure: Beau rosenthal, eccPhysician: Dr. Diaz cation: [facility]: [phone] AND Time: 01/09/18MEDICAL CLEARANCE: No CARDIAC CLEARANCE: NoPRE ADMISSION TESTIN01/02/18THE FOLLOWING WAS EVALUATED Motivation To Learn: Eager Family/Significant Other Support: High - Very involved in pt care Cognitive Ability: Alert and orientedPatient Learns Best By: Individual InstructionWritten Instruction - Hand-outsVerbal InstructionThe FollowingInfluencing Factors Were Barriers To This Education Session: NoneThe Following Physical LimitationsWere Barriers To This Education Session:NoneInstruction Provided To: [...] Advill Celebrex MotrinAggrenox Clinoril Naprosyn(naproxen)Agrylin NSAIDS Pepto-BismolAleve Ecot rin PersantineAlka-Wallace Excedrin PlaquenilAnacin Heparin PlavixAscriptin Herbals PletalAspergum Ibuprofen [...] include:No eating, drinking, or smoking after midnight priorto surgery.Medications as prescribed by anesthesia or the physician.Bowel Prep as indicated.Review of information contained in surgical packetPre-operative and intra-operative general activities werereviewed including:Holding Area, assessments, surgical positioning, and Family Waiting Area.Writtenpost-operative instructions were given to the patient regarding post-opactivity, pain control, symptoms to report.Post-operative instructions provided and reviewed with patient/family:ACTIVITY - No heavy lifting (>5-10 lbs), no pushing/pulling, OK to climb stairsDRIVING - No driving while takingprescription pain medication, or within 24hours of anesthesia, OK to ride in a car.DIET - Advance diet as tolerated and as ordered by MD, drink 8 glasses of watera day, eat a diet high in protein andfiber unless otherwise directed by MD.CATHETER - Will [...] - IV pain medication after surgery, IV CLASSIFICATION CASE MANAGER if ordered by MD,discharged home with a prescription for PO pain medication, pain managementafter surgery, side effects of pain medication (including constipation,dizziness, drowsiness, and medication interactions).DVT PROPHYLAXIS - Early ambulation, SCDs, injectable anticoagulants (heparin,lovenox, etc)RESPIRATORY - Incentive spirometer, coughing/deep breathing exercises,ambulation.RETURN TO WORK - As directed by physician, please send any [facility] papers [facility].SYMPTOMS TO NOTIFY MD - Fever, chills, nausea, vomiting, increased or severepain, heavy vaginal bleeding, foul smelling vaginal drainage, pain or swellingin extremities.URGENT SYMPTOMS - Call 911 or go to ER if any shortness of breath, difficultybreathing, or chest pain.HOW TO CONTACT PHYSICIAN - Physician's office phone number given to patient, ifafterhours patient instructed to call entry level machine operator and ask for the doctor textile converter.Patient and family have phone number to call 24 hours/day.Patient Evaluation: Verbalizes understandingPatient and/or family exp ress understanding of upcoming surgery and theoperative process. Questions answered.Follow Up Plan:Follow up as neededSupplemental Material Given:Pre- operative teaching packet provided to the patient:INPATIENT/OUTPATIENT printed instructions; Post-operative instruction sheet,bowel prep instructionsheetFor questions contact: office at [phone] By Antoinette Cha RN [facility] WomenHOSPPatient Update ([facility]) --------NE KEITA ( ) 1985 FDate Time Provider Department12/30/17 RAFAL LOWE (DIRT BIKE RACER) [facility] During your visit today, we recorded the following information about you:Allergies As of Date: 12/30/2017(No Known Allergies)Date Reviewed: 12/29/2017Reviewed by: Mary Treadwell - Sofia Pereira(s):SURGICAL REQUEST - ELECTIVE [[id number]] Order #: [id number]: 1Prescriptions as of 12/30/2017 Sig: FLUOXETINE 40 MG CAPSULE Take 40 mg by mouth once lynn* MELOXICAM 7.5 MG TABLET Take 7.5 mg by mouth once alexandre* ARIPIPRAZOLE 10 MG TABLET Take 10 mg by mouth once lynn* ALPRAZOLAM 1 MG TABLET Take 1 mg by mouth as needed.* DEXTROAMPHETAMINE-AMPHETAMINE* Take 30 mg by mouth once lynn* GABAPENTIN 300 MG CAPSULE Take 300 mg by mouth three ti*Problem List As Of Date 12/30/2017 Noted Resolved IDIOPATHIC SCOLIOSIS [M41.20] INVALID FOR* LUMBAGO [M54.5] INVALID FOR* Chronic pain syndrome [G89.4] INVALID FOR* History of scoliosis [Z87.39] INVALID FOR* Thoracic back pain [M54.6] INVALID FOR* History of noncompliance with medical treatment*INVALID FOR* Myalgia and myositis, unspecified [SGI7114] INVALID FOR* Status:Closed by [facility] on 12/30/17[facility] Vital Signs Date TimeVital SignValuePerforming TdkgkpzrqUckdtxls90-32-8085 21:30-0400 Diastolic blood epotpdib35 mm[Hg]Enrique Fischer MD Work Phone: 1(846) [phone]vHmqmvi91-11-8754 21:30-0400Heart rate76 /min Enrique Fischer MD Work Phone: [phone] 21:30-0400Respiratory rate16 /minEnrique Fischer MD Work Phone: DpzqyUkvetm07-511450RpkjrAgmtvw38-36-6783 21:30-7017ZxE5% (BldA) [Mass fraction]96 %Enrique Fischer MD Work Phone: YxxsxAexxcv45-185896JkcqtArmeqo28-65-4635 21:30-0400Systolic blood hmzuhpaz281 mm[Hg]Enrique Fischer MD Work Phone: UlntwBowlbv10-405162AtnezFagnah16-84-5861 19:42-0400Body fnyhzwbjqqn85.9 [degF]Enrique Fischer MD Work Phone: [phone] 11:57-0400Body wzsrhmxcerj34.49 [degF]Yanni Hemmer PA Work Phone: [facility] CenterCvrmflvirt91-45-7921 11:57-0400Diastolic blood qaggwmbe76 mm[Hg]Yanni Hemmer PA Work Phone: [facility] CenterOioarsmojk73-95-4033 11:57-0400Heart rate70 /min Yanni Hemmer PA Work Phone: [facility] CenterCfdqdkhchq36-58-9623 11:57-7111RlV3% (BldA) [Mass fraction]97 %Yanni Hemmer PA Work Phone: [facility] Medical CenterZizophekie29-36-1894 11:57-0400Systolic blood epjomran829 mm[Hg]Yanni Hemmer PA Work Phone: [facility]OL[facility] CenterHryhlzbjzr49-83-3871 00:48-0400Diastolic blood ksvvvrnu59 mm[Hg]Services [facility] Work Phone: [facility]05-13-2025 00:48-0400 Heart rate90 /minServices [facility] Work Phone: 1(419)50[address]05-13-2025 00:48-0400 Respiratory rate20 /minServices [employer] Work Phone: 1(147)784-[address] [place], [place] 2230905-13-2025 00:48-0400 SaO2% (BldA) [Mass fraction]98 %Services [employer] Work Phone: 1(198)47161 [address]05-13-2025 00:48-0400 Systolic blood cneplrxa145 mm[Hg]Services [employer] Work Phone: 1(978)61961 [address]05-12-2025 22:47-0400 Body .02 [facility] [employer] Work Phone: 1(366)35[address]05-12-2025 22:47-0400 Body qqecwqihrkj18.4 [degF]Services [employer] Work Phone: 1(627)25061 [address]05-12-2025 22:47-0400 Body airnbd604.2 kgS[facility] [employer] Work Phone: 1(093)50961 [address]02-24-2025 12:58-0500 Body mass index (BMI) [Ratio]52.43 kg/t5Lkdirxz [employer] Work Phone: 6(321)563-[facility]portJohn [facility] Medical CenterRwuhedgyse99-63-8920 12:58-0500Body eppwgs202.26 kgRichard [employer] Work Phone: 4(501)768-[facility] CenterObwvomrqez28-87-5899 12:58-0500Diastolic blood xiriodpa63 mm[Hg]Stephanie Visci DO Work Phone: [facility] CenterBbgukxwfkx95-76-0064 12:58-0500Systolic blood efxsmzxj848 mm[Hg]Stephanie Allakosi [employer] Work Phone: [facility] CenterIttumwefey52-95-8218 03:20-0400Diastolic blood bwzbsruh18 mm[Hg]Services [employer] Work Phone: 4(091)110-[address] [place], [place] 2230906-04-2024 03:20-0400 Heart rate62 /minServices [employer] Work Phone: 9(678)594-[address] [place], [place] 2230906-04-2024 03:20-0400 Respiratory rate20 /minS[employer] Work Phone: 1(459)090-[address] [place], [place] 2230906-04-2024 03:20-0400 SaO2% (BldA) [Mass fraction]96 %Services [employer] Work Phone: 1(017)724-[facility]06-04-2024 03:20-0400 Systolic blood mvijfqdl552 mm[Hg]Services [employer] Work Phone: 1(517)595-[address] [place], [place] 2230906-03-2024 23:43-0400 Body xfqyqr048.02 [facility] HospitalExpand [facility] Work Phone: 1(351)499[address]06-03-2024 23:43-0400 Body wvgholjjsgk70.9 [degF]Services [employer] Work Phone: 1(733)37[address]06-03-2024 23:43-0400 Body jxcleq666.6 kgSergood [facility] [employer] Work Phone: 1(247)26661 [address]04-27-2024 21:57-0400 Body xqquzz209.02 [facility] HospitalExpand [facility] Work Phone: 1(057)44[address]04-27-2024 21:57-0400 Body zpambsserxv39.7 [degF]Services [employer] Work Phone: 1(252)50161 [address]04-27-2024 21:57-0400 Body jpeect296.6 kgSergood [facility] hospital [employer] Work Phone: 1(231)873-[address] [place], [place] 2230904-27-2024 21:57-0400 Diastolic blood ttewzojc95 mm[Hg]Services [employer] Work Phone: 1(819)050-[address] [place], [place] 2230904-27-2024 21:57-0400 Heart rate82 /[employer] Work Phone: 1(963)172-[address] [place], [place] 2230904-27-2024 21:57-0400 Respiratory rate18 /[employer] Work Phone: 1(094)544-[address] [place], [place] 2230904-27-2024 21:57-0400 SaO2% (BldA) [Mass fraction]97 %[facility] Work Phone: 1(470)01[address]04-27-2024 21:57-0400 Systolic blood gdlxujhc507 mm[Hg]Services [facility] Work Phone: 1(769)[address] [place], [place] 6284601-19-2024 19:15-0500 Diastolic blood dtzevenz59 mm[Hg]Services [employer] Work Phone: 1(794)[address] [place], [place] 6284601-19-2024 19:15-0500 Heart rate84 /minS[employer] Work Phone: 1(921)[address] [place], [place] 6284601-19-2024 19:15-0500 Respiratory rate20 /minScincinnati va medical centeruTest Work Phone: 1(149)[address] [place], [place] 6284601-19-2024 19:15-0500 SaO2% (BldA) [Mass fraction]96 %Services [employer] Work Phone: 1(660)[address] [place], [place] 6284601-19-2024 19:15-0500 Systolic blood yxdszpuu768 mm[Hg]Services [employer] Work Phone: 1(046)[address] [place], [place] 6284601-19-2024 16:51-0500 Body .02 [facility] Hospital[facility] Work Phone: 1(633)[address] [place], [place] 6284601-19-2024 16:51-0500 Body wgufrydpnlu78.7 [degF]Services [employer] Work Phone: 1(379)[address] [place], [place] 6284601-19-2024 16:51-0500 Body .9 kgServices [employer] Work Phone: 1(300)[address] [place], [place] 6284610-08-2023 18:16-0400 Body .02 cmS[employer] Work Phone: 1(750)[address] [place], [place] 6284610-08-2023 18:16-0400 Body gjlapraubdm06.1 [degF]Services [employer] Work Phone: 1(762)[address] [place], [place] 6284610-08-2023 18:16-0400 Body lxbapu978.4 kgServices [employer] Work Phone: 1(415)[address] [place], [place] 6284610-08-2023 18:16-0400 Diastolic blood zwhgtbje53 mm[Hg]Services [employer] Work Phone: 1(617)98461 [address]10-08-2023 18:16-0400 Heart rate81 /minServuTest Work Phone: [phone])38361 [address]10-08-2023 18:16-0400 Respiratory rate18 /minScincinnati va medical centeruTest Work Phone: [phone])[address] [place], [place] 6284610-08-2023 18:16-0400 SaO2% (BldA) [Mass fraction]98 %Services [employer] Work Phone: [phone])98261 [address]10-08-2023 18:16-0400 Systolic blood aqmeqnwe552 mm[Hg]Services [employer] Work Phone: [phone])[address]07-16-2023 18:32-0400 Heart rate69 /[employer] Work Phone: 1(388)[address] [place], [place] 6284607-16-2023 16:18-0400 Body uitdyf961.02 cmServices [employer] Work Phone: [address] [place], [place] 6284607-16-2023 16:18-0400 Body kcqehvkccpp92.5 [degF]Services [employer] Work Phone: 1(082)[address] [place], [place] 6284607-16-2023 16:18-0400 Body owrzbe809.6 kgServices [employer] Work Phone: 1(162)76461 [address]07-16-2023 16:18-0400 Diastolic blood ekvccfry21 mm[Hg]Services [employer] Work Phone: [phone])42861 [address]07-16-2023 16:18-0400 Respiratory rate18 /minS[employer] Work Phone: 1(230)[address] [place], [place] 6284607-16-2023 16:18-0400 SaO2% (BldA) [Mass fraction]97 %Services [employer] Work Phone: 1(140)92061 [address]07-16-2023 16:18-0400 Systolic blood axyrflli252 mm[Hg]Services [employer] Work Phone: [facility]05-26-2023 10:30-0400 Body iutmwo823.02 cmJujerry Hart Other [facility] Other 05-26-2023 10:30-0400Body mass index (BMI) [Ratio] 47.82 kg/a2Rnmjsejerry Hart Other [employer] Other 05-26-2023 10:30-0400Body yrmftu076.47 kgJujerry Hart Other [facility]North[facility] Other 05-15-2023 15:30-0400Body evdgrh067.02 cmFrank Allenban Other [employer] Other 05-15-2023 15:30-0400Body mass index (BMI) [Ratio] 47.82 kg/p3SunzoFrank Allenban Other [employer] Other 05-15-2023 15:30-0400Body ztaatg890.47 kgFrank Chaban Other [employer] Other 05-15-2023 15:30-0400Diastolic blood psvvotxl41 mm[Hg] Kamal Chaban Other [employer] Other 05-15-2023 15:30-2426KkY0% (BldA) [Mass fraction]95 % Kamal Chaban Other [employer] Other 05-15-2023 15:30-0400Systolic blood fsojuevw691 mm[Hg] Kamal Chaban Other [employer] Other 05-10-2023 01:13-0400Diastolic blood upbrvaze43 mm[Hg] Services [employer] Work Phone: 1(454)131-[address] [place], [place] 2230905-10-2023 01:13-0400 Heart rate72 /minServuTest Work Phone: 1(929)07461 [address]05-10-2023 01:13-0400 Respiratory rate18 /minServices [employer] Work Phone: 1(860)889[address]05-10-2023 01:13-0400 SaO2% (BldA) [Mass fraction]95 %Services [employer] Work Phone: 1(862)43561 [address]05-10-2023 01:13-0400 Systolic blood xgryzgfn612 mm[Hg]Services [employer] Work Phone: 1(137)19861 [address]05-09-2023 22:55-0400 Body xjaozc420.02 cmServchoctaw general hospital [employer] Work Phone: 1(986)[address] [place], [place] 6284605-09-2023 22:55-0400 Body eytiehselht87.1 [degF]Services [facility] [employer] Work Phone: 1(201)[address] [place], [place] 6284605-09-2023 22:55-0400 Body .2 kgServices [employer] Work Phone: 1(001)78761 [address]04-11-2023 12:36-0400 Diastolic blood avsmsbfs23 mm[Hg]Services [employer] Work Phone: 1(106)68161 [address]04-11-2023 12:36-0400 Heart rate80 /minServuTest Work Phone: 1(274)278-[address] [place], [place] 2230904-11-2023 12:36-0400 Respiratory rate18 /minS[employer] Work Phone: 1(948)119-[address] [place], [place] 2230904-11-2023 12:36-0400 SaO2% (BldA) [Mass fraction]100 %Services [employer] Work Phone: 1(272)96661 [address]04-11-2023 12:36-0400 Systolic blood vdkmlafz065 mm[Hg]Services [employer] Work Phone: 1(169)396-[address] [place], [place] 2230904-11-2023 10:42-0400 Body vgmpobbrntd76.1 [degF]Services [employer] Work Phone: 1(068)39761 [address]04-11-2023 10:40-0400 Body .02 [facility] Work Phone: 1(772)10761 [address]04-11-2023 10:40-0400 Body ufwoev706 kgSergood [facility] [employer] Work Phone: 1(043)34761 [address]03-21-2023 02:26-0400 Diastolic blood vgnsnetq44 mm[Hg]Services [facility] [employer] Work Phone: 1(438)[address] [place], [place] 6284603-21-2023 02:26-0400 Heart rate69 /[employer] Work Phone: 1(226)[address] [place], [place] 6284603-21-2023 02:26-0400 Respiratory rate18 /[employer] Work Phone: 1(896)[address] [place], [place] 6284603-21-2023 02:26-0400 SaO2% (BldA) [Mass fraction]100 %Services [employer] Work Phone: 1(853)[address] [place], [place] 6284603-21-2023 02:26-0400 Systolic blood agkaipuc180 mm[Hg]Services [employer] Work Phone: 1(394)[address] [place], [place] 6284603-20-2023 21:31-0400 Body .02 [facility] Work Phone: 1(469)[address] [place], [place] 6284603-20-2023 21:31-0400 Body dvafzzvfmfu07 [degF]Services [employer] Work Phone: 1(696)[address] [place], [place] 6284603-20-2023 21:31-0400 Body quuxla583.6 kgSergood [facility] hospital [employer] Work Phone: 1(226)[address] [place], [place] 6284603-16-2023 22:30-0400 Diastolic blood jnlygzjg23 mm[Hg]Services [employer] Work Phone: 1(509)21061 [address]03-16-2023 22:30-0400 Heart rate75 /[employer] Work Phone: 1(107)588-[address] [place], [place] 2230903-16-2023 22:30-0400 Respiratory rate12 /[employer] Work Phone: 1(141)31561 [address]03-16-2023 22:30-0400 SaO2% (BldA) [Mass fraction]97 %Services [employer] Work Phone: 1(113)80461 [address]03-16-2023 22:30-0400 Systolic blood mm[Hg]Services [employer] Work Phone: 1(989)69761 [address]03-16-2023 20:11-0400 Body abmqap567.02 [facility] HospitalSocialcamchoct[facility] [employer] Work Phone: 1(893)18[address]03-16-2023 20:11-0400 Body dqjkwextylm26 [degF]Services [employer] Work Phone: 1(590)16461 [address]03-16-2023 20:11-0400 Body izuyqz448 kgSergood [facility] [employer] Work Phone: 1(167)13661 [address]03-16-2023 14:15-0400 Diastolic blood nvvuitwd80 mm[Hg]Services [employer] Work Phone: 1(005)89961 [address]03-16-2023 14:15-0400 Heart rate80 /Hyperopticchoctaw general hospital [employer] Work Phone: 1(299)030-[address] [place], [place] 2230903-16-2023 14:15-0400 Systolic blood zojdfekd652 mm[Hg]Services [employer] Work Phone: 1(685)14961 [address]03-16-2023 13:38-0400 Body afylxq771.02 [facility] HospitalSocialcamcho[facility] [employer] Work Phone: 1(964)42261 [address]03-16-2023 13:38-0400 Body fsoxhcyeynt77.1 [degF]Services [employer] Work Phone: 1(642)93561 [address]03-16-2023 13:38-0400 Body foriig212.75 kgSerCon[employer] Work Phone: 1(419)502-[address] [place], [place] 2230903-16-2023 13:38-0400 Respiratory rate20 /minServices [facility] Work Phone: 1(064)[address] [place], [place] 6284603-16-2023 13:38-0400 SaO2% (BldA) [Mass fraction]96 %Services [employer] Work Phone: 1(160)[address] [place], [place] 6284603-03-2023 00:21-0500 Diastolic blood ilaekkrg58 mm[Hg]Services [facility] Work Phone: 1(389)09061 [address]03-03-2023 00:21-0500 Heart rate87 /minServInstamedia Health Work Phone: 1(090)[address] [place], [place] 6284603-03-2023 00:21-0500 Respiratory rate18 /minServInstamedia Health Work Phone: 1(127)29361 [address]03-03-2023 00:21-0500 SaO2% (BldA) [Mass fraction]96 %[facility] Work Phone: 1(937)[address] [place], [place] 6284603-03-2023 00:21-0500 Systolic blood sjtrezfq884 mm[Hg]Services [facility] [employer] Work Phone: 1(407)[address] [place], [place] 6284603-02-2023 21:35-0500 Body fioipmfongr61.9 [degF]Services [employer] Work Phone: 1(181)[address] [place], [place] 6284603-02-2023 21:34-0500 Body osbumq111.02 [facility] [employer] Work Phone: 1(257)25[address]03-02-2023 21:34-0500 Body heqcma829 kgServic [facility] Work Phone: 1(274)26[address]03-01-2023 01:08-0500 Body sdpgbo077.02 [facility] [employer] Work Phone: 1(477)76961 [address]03-01-2023 01:08-0500 Body ypjmrizbrdl00.1 [degF]Services [employer] Work Phone: 1(510)93861 [address]03-01-2023 01:08-0500 Body ydmqrw607.1 kgSergood [facility] [employer] Work Phone: 1(272)108-[address] [place], [place] 2230903-01-2023 01:08-0500 Diastolic blood anywcvfo81 mm[Hg]Services [employer] Work Phone: 1(553)281-[address] [place], [place] 2230903-01-2023 01:08-0500 Heart rate82 /minS[employer] Work Phone: 1(335)08461 [address]03-01-2023 01:08-0500 Respiratory rate20 /minS[employer] Work Phone: 1(440)407-[address] [place], [place] 2230903-01-2023 01:08-0500 SaO2% (BldA) [Mass fraction]98 %Services [employer] Work Phone: 1(517)550-[address] [place], [place] 2230903-01-2023 01:08-0500 Systolic blood mm[Hg]Services [facility] [employer] Work Phone: 1(199)09761 [address]02-27-2023 14:01-0500 Body awtkph0338.56 cmServchoctaw general hospital [employer] Work Phone: 1(665)41561 [address]02-27-2023 14:01-0500 Body nhnzdfimkrx44.2 [degF]Services [employer] Work Phone: 1(107)88661 [address]02-27-2023 14:01-0500 Body kgSergood shepherd specialty hospital [employer] Work Phone: 1(375)806-[address] [place], [place] 2230902-27-2023 14:01-0500 Diastolic blood ekzirfno34 mm[Hg]Services [employer] Work Phone: 1(595)133-[address] [place], [place] 2230902-27-2023 14:01-0500 Heart rate82 /minS[employer] Work Phone: 1(770)346-[address] [place], [place] 2230902-27-2023 14:01-0500 Respiratory rate18 /[employer] Work Phone: 1(256)949-[address] [place], [place] 2230902-27-2023 14:01-0500 SaO2% (BldA) [Mass fraction]94 %Services [employer] Work Phone: 1(419)50261 [address]02-27-2023 14:01-0500 Systolic blood zluzovvr083 mm[Hg]Services [employer] Work Phone: 1(726)[address] [place], [place] 6284602-09-2023 00:33-0500 Diastolic blood ivrgqkzm59 mm[Hg]Services [employer] Work Phone: 1(854)[address] [place], [place] 6284602-09-2023 00:33-0500 Heart rate88 /[employer] Work Phone: 1(977)[address] [place], [place] 6284602-09-2023 00:33-0500 Respiratory rate19 /minSgl[facility] hospital [employer] Work Phone: 1(534)[address] [place], [place] 6284602-09-2023 00:33-0500 SaO2% (BldA) [Mass fraction]98 %Services [employer] Work Phone: 1(975)[address] [place], [place] 6284602-09-2023 00:33-0500 Systolic blood ozepnctm008 mm[Hg]Services [employer] Work Phone: 1(626)[address] [place], [place] 6284602-08-2023 22:34-0500 Body ktkkaq331.02 [facility] Work Phone: 1(586)[address] [place], [place] 6284602-08-2023 22:34-0500 Body tgwephlpnah42.7 [degF]Services [employer] Work Phone: 1(414)[address] [place], [place] 6284602-08-2023 22:34-0500 Body lageha446 kgServic [employer] Work Phone: 1(300)85061 [address]11-28-2022 09:35-0500 Body slpjuf224.02 cmS[employer] Work Phone: 1(085)[address] [place], [place] 6284611-28-2022 09:35-0500 Body deroxztsgpr57.2 [degF]Services [employer] Work Phone: 1(221)[address] [place], [place] 6284611-28-2022 09:35-0500 Body sjajbf339.2 kgSerlompoc valley medical center117go Work Phone: 1(953)[address] [place], [place] 6284611-28-2022 09:35-0500 Diastolic blood zeukjdds90 mm[Hg]Services [employer] Work Phone: 1(548)79561 [address]11-28-2022 09:35-0500 Heart rate73 /minServuTest Work Phone: 1(152)83361 [address]11-28-2022 09:35-0500 Respiratory rate16 /minServices [employer] Work Phone: 1(984)22061 [address]11-28-2022 09:35-0500 SaO2% (BldA) [Mass fraction]97 %Services [employer] Work Phone: 1(741)19261 [address]11-28-2022 09:35-0500 Systolic blood cultxsdi688 mm[Hg]Services [employer] Work Phone: 1(019)26661 [address]11-17-2022 00:51-0500 Body .02 cmServices [employer] Work Phone: 1(405)84461 [address]11-17-2022 00:51-0500 Body vmmzyuilfuf93.7 [degF]Services [employer] Work Phone: 1(288)83161 [address]11-17-2022 00:51-0500 Body mzlalb556.5 kgServices [employer] Work Phone: 1(502)49661 [address]11-17-2022 00:51-0500 Diastolic blood eevrtund48 mm[Hg]Services [employer] Work Phone: 1(923)768-[address] [place], [place] 2230911-17-2022 00:51-0500 Heart rate82 /minServuTest Work Phone: 1(386)543-[address] [place], [place] 2230911-17-2022 00:51-0500 Respiratory rate20 /minS[employer] Work Phone: 1(437)44561 [address]11-17-2022 00:51-0500 SaO2% (BldA) [Mass fraction]99 %Services [employer] Work Phone: 1(501)102-[address] [place], [place] 2230911-17-2022 00:51-0500 Systolic blood ijwlhbts009 mm[Hg][facility] Work Phone: 1(259)70061 [address]11-11-2022 21:37-0500 Diastolic blood xlofyiyl27 mm[Hg][facility] Work Phone: 1(148)[address] [place], [place] 6284611-11-2022 21:37-0500 Heart rate81 /minServuTest Work Phone: 1(998)[address] [place], [place] 6284611-11-2022 21:37-0500 Respiratory rate17 /minServInstamedia Health Work Phone: 1(021)[address] [place], [place] 6284611-11-2022 21:37-0500 SaO2% (BldA) [Mass fraction]97 %Services [employer] Work Phone: 1(324)[address] [place], [place] 6284611-11-2022 21:37-0500 Systolic blood kzilbjhr764 mm[Hg]Services [employer] Work Phone: 1(195)[address] [place], [place] 6284611-11-2022 18:34-0500 Body ryvotv473.02 [facility] Work Phone: 1(797)[address] [place], [place] 6284611-11-2022 18:34-0500 Body rjaoqa426.6 kgSergood shepherd specialty hospital [employer] Work Phone: 1(363)[address] [place], [place] 6284610-08-2022 22:25-0400 Body nklyzv082.02 cmSExpand [employer] Work Phone: 1(453)[address] [place], [place] 6284610-08-2022 22:25-0400 Body ajtigcomglh53.2 [degF]Services [employer] Work Phone: 1(229)[address] [place], [place] 6284610-08-2022 22:25-0400 Body ldwdil985.55 kgSerCon[employer] Work Phone: 1(159)[address] [place], [place] 6284610-08-2022 22:25-0400 Diastolic blood uaeyuvjd03 mm[Hg]Services [employer] Work Phone: 1(966)[address] [place], [place] 6284610-08-2022 22:25-0400 Heart rate74 /minServices [employer] Work Phone: 1(728)[address] [place], [place] 6284610-08-2022 22:25-0400 Respiratory rate18 /minServices [facility] Work Phone: [facility]10-08-2022 22:25-0400 SaO2% (BldA) [Mass fraction]98 %Services [facility] Work Phone: [facility]10-08-2022 22:25-0400 Systolic blood onuitwvx632 mm[Hg]Services [facility] Work Phone: [facility]09-17-2022 23:00-0400 Diastolic blood dbfgwesi24 mm[Hg]DO Stephanie Visci Work Phone: 1(770)460-[facility]09-17-2022 23:00-0400 Heart rate87 /minDO Stephanie Visci Work Phone: 1(110)408-[address] [place], [place] 1721709-17-2022 23:00-0400 Respiratory rate17 /minDO Stephanie Visci Work Phone: 1(851)015-[facility]09-17-2022 23:00-0400 SaO2% (BldA) [Mass fraction]96 %DO Stephanie Visci Work Phone: 1(186)883-[facility]09-17-2022 23:00-0400 Systolic blood rrgiqgwn497 mm[Hg]DO Stephanie Visci Work Phone: 1(773)620-[facility]09-17-2022 22:00-0400 Body iillyz098.02 cmDO Stephanie Visci Work Phone: [phone])733-[facility]09-17-2022 22:00-0400 Body kuxhbfufoji03.8 [degF]DO Stephanie Visci Work Phone: 6(468)494-[facility]09-17-2022 22:00-0400 Body ombwri143.7 kgDO Stephanie Visci Work Phone: [phone](319)337-[facility]09-12-2022 14:55-0400 Diastolic blood yadblhqo12 mm[Hg]DO Stephanie Visci Work Phone: 1(955)886-[facility]09-12-2022 14:55-0400 Heart rate89 /minDO Stephanie Visci Work Phone: [facility]09-12-2022 14:55-0400 Respiratory rate18 /[employer] Visci Work Phone: 1(562)494-[facility]09-12-2022 14:55-0400 SaO2% (BldA) [Mass fraction]93 %DO Stephanie Visci Work Phone: 1(691)492-[facility]09-12-2022 14:55-0400 Systolic blood xohzjpbg889 mm[Hg]DO Stephanie Visci Work Phone: 1(514)[address]09-12-2022 14:35-0400 Inhaled oxygen flow rate2 L/[employer] Visci Work Phone: 1(733)[address]07 [address]09-12-2022 10:10-0400 Body hknyggxdagn15.8 [degF]DO Stephanie Visci Work Phone: 5(557)[address]09-12-2022 07:12-0400 Body merlus994.02 cmDO Stephanie Visci Work Phone: 1(770)483-[address] [place], [place] 1721709-12-2022 07:12-0400 Body mass index (BMI) [Ratio]46 kg/m2DO Stephanie Visci Work Phone: 1(608)862-[address] [place], [place] 1721709-12-2022 07:12-0400 Body xtuunl696 kgDO Stephanie Visci Work Phone: [phone]-[facility]08-09-2022 00:30-0400 Diastolic blood mm[Hg]DO Stephanie Visci Work Phone: 1([phone])959-[facility]08-09-2022 00:30-0400 Heart rate60 /[employer] Visci Work Phone: [phone])472[facility]-09-2022 00:30-0400 Respiratory rate14 /[employer] Visci Work Phone: [facility]08-09-2022 00:30-0400 SaO2% (BldA) [Mass fraction]97 %DO Stephanie Visci Work Phone: 1(419)625-[address] [place], [place] 1721708-09-2022 00:30-0400 Systolic blood rfdoveun268 mm[Hg]DO Stephanie Visci Work Phone: 1(528)314-[address] [place], [place] 1721708-08-2022 21:24-0400 Body .02 cmDO Stephanie Visci Work Phone: 1(325)[address]08-08-2022 21:24-0400 Body drmzdiozwky41 [degF]DO Stephanie Visci Work Phone: 1(037)[address]08-08-2022 21:24-0400 Body ndtukg521.05 kgDO Stephanie Visci Work Phone: 1(479)[address]08-04-2022 13:59-0400 Diastolic blood ugggzowj86 mm[Hg]DO Stephanie Visci Work Phone: 1(535)[address] [place], [place] 2616908-04-2022 13:59-0400 Heart rate69 /minDO Stephanie Visci Work Phone: 8(298)79507 [address]08-04-2022 13:59-0400 Respiratory rate18 /minDO Stephanie Visci Work Phone: 2(377)66507 [address]08-04-2022 13:59-0400 SaO2% (BldA) [Mass fraction]98 %DO Stephanie Visci Work Phone: 8(228)[address] [place], [place] 2616908-04-2022 13:59-0400 Systolic blood xpsjyhxw144 mm[Hg]DO Stephanie Visci Work Phone: 8(515)[address]207 [address]08-04-2022 11:46-0400 Body hpyudd414.02 cmDO Stephanie Visci Work Phone: 7(515)545-[address] [place], [place] 1721708-04-2022 11:46-0400 Body ujckydjeihg87.5 [degF]DO Stephanie Visci Work Phone: 9(102)874-[address] [place], [place] 1721708-04-2022 11:46-0400 Body uxbqgr927.46 kgDO Stephanie Visci Work Phone: 1(872)678-[address] [place], [place] 1721708-03-2022 12:00-0400 Diastolic blood ceozlxvm47 mm[Hg]DO Stephanie Visci Work Phone: 1(031)820-[address] [place], [place] 1721708-03-2022 12:00-0400 Heart rate74 /minDO Stephanie Visci Work Phone: 1(292)912-[address] [place], [place] 1721708-03-2022 12:00-0400 Respiratory rate16 /minDO Stephanie Visci Work Phone: 1(046)184-[address] [place], [place] 1721708-03-2022 12:00-0400 SaO2% (BldA) [Mass fraction]97 %DO Stephanie Visci Work Phone: 1(692)[address]407 [address]08-03-2022 12:00-0400 Systolic blood prnpdaey826 mm[Hg]DO Stephanie Visci Work Phone: 1(665)[address]707 [address]08-03-2022 08:00-0400 Body yqoimvhnlwa56.6 [degF]DO Stephanie Visci Work Phone: 1(397)23607 [address]08-02-2022 20:10-0400 Body fohdwo377.02 cmDO Stephanie Visci Work Phone: 1(865)[address]707 [address]08-02-2022 20:10-0400 Body hirswn704.1 kgDO Stephanie Visci Work Phone: 1(046)[address]2022 22:33-0400 Body icmycu099.02 cmDO Stephanie Visci Work Phone: 8(947)289-[address] [place], [place] 1721706-10-2022 22:33-0400 Body mass index (BMI) [Ratio]46.5 kg/m2DO Stephanie Visci Work Phone: 1(907)876-[address] [place], [place] 1721706-10-2022 22:33-0400 Body khaqykmjvuh47.4 [degF]DO Stephanie Visci Work Phone: 1(561)[address] [place], [place] 2616906-10-2022 22:33-0400 Body aumfjz375.3 kgDO Stephanie Visci Work Phone: 1(001)767-[address] [place], [place] 1721706-10-2022 22:33-0400 Diastolic blood mm[Hg]DO Stephanie Babcock Work Phone: [facility]2022 22:33-0400 Heart rate82 /Soto Babcock Work Phone: [facility]2022 22:33-0400 Respiratory rate18 /Soto Babcock Work Phone: [facility]2022 22:33-0400 SaO2% (BldA) [Mass fraction]97 %DO Stephanie Babcock Work Phone: [facility]2022 22:33-0400 Systolic blood iqzcjmox782 mm[Hg]DO Stephanie Babcock Work Phone: [facility] Encounters Encounter DateEncounter TypeCare ProviderFacilityStart: 04-26-2025 End: 21-78-1607Bvcspylcz department patient visitEnrique Fischer MD Work Phone: [facility] MedicineStart: 04-26-2025 End: 04-26-2025E.DJalen VisitPrudence Najma [facility] Social WorkComment on above:Trauma/complex Medical SituationStart: 03-18-0722Rzldgaorq department patient visitUNKNOWN PROVIDERFacility:METROHealthStart: 04-24-2025 End: 70-98-2548evvhwfwohdNKACY M HEMMERNot AvailableStart: 04-24-2025 End: 05-73-2728Yttawvn encounter procedureYanni NICHOLS Work Phone: [facility] UCComment on above:Physical exam, pre- employment (Primary Dx)Start: 03-08-2025 End: 21-60-8338Xrisjeolw department patient visitServices [facility] Work Phone: [facility]-Emergency Room Work Phone: Start: 03-06-2025 End: 23-57-9275Netmefprw department patient visitBRANDY CHENGSuburban Community Hospital & Brentwood Hospitaltart: 12-21-2024 End: 19-03-1842Rhkwieg encounter statusRichard A Visci DO Work Phone: noMI HealthcareStart: 12-21-2024 End: 20-66-6579Ovhcumch preventive med est patient 40-64yrsRichard A Visci DO Work Phone: [facility] OBComment on above:Encounter for gynecological examination with abnormal finding; Encounter for screening mammogram for malignant neoplasm of breast; Vulvar irritation; Smoking; Special screening for malignant neoplasms, vagina; Tinea crurisStart: 12-21-2024 End: 33-79-5079Rttzou flowsheetRichard A Visci DO Work Phone: [facility] OBStart: 12-21-2024 End: 97-50-2306Zceddo flowsheetRichard A Visci DO Work Phone: [facility] OBStart: 12-21-2024 End: 01-31-7258vvnopznpdvBUEPUCR A VISCINot AvailableStart: 05-07-2024 End: 44-53-3294fhrcnqkuitUMGLRVZ A VISCINot AvailableStart: 03-30-2024 End: 38-02-7278Plnmdwnbz department patient visitSMarion Hospital Work Phone: [facility]-Emergency Room Work Phone: Start: 02-22-2024 End: 67-33-1577Kkdilzkdx department patient visitServECU Health [facility] Work Phone: [facility] C[facility]-Emergency Room Work Phone: Start: 02-19-2024 End: 08-33-6534eyphdwmttqBW Stephanie Visci Work Phone: [facility] Work Phone: Start: 02-19-2024 End: 15-42-5820Swxnrsgf ReferredDO Stephanie Visci Work Phone: [facility] HospitalStart: 11-18-2023 End: 41-73-0096twkswrcvqsMrpd Wallacechristiano Other [facility] Other Start: 55-14-3305Mfnyygawe encounterDawprisclia Ayah [facility] ClinicStart: 11-15-2023 End: 68-62-4402Xbwrwrnmc department patient visitServices [facility] Work Phone: [facility]-Emergency Room Work Phone: Start: 08-04-2023 End: 71-93-5984Zwsxnzlla department patient visitServices [facility] Work Phone: [facility]-Emergency Room Work Phone: Start: 05-12-2023 End: 74-23-3903Cxcyuolqu department patient visitServices Family [facility] Work Phone: [facility]-Emergency Room Work Phone: Start: 04-11-2023 End: 33-27-4340tvfbxndnrgUjurlu Hailey Other [facility] Other Start: 53-22-1583Rsppfalao encounterJustin Loreto [place] OrthopedicsStart: 03-22-2023 End: 20-57-4232psbejsbmryLmiyfd Hailey Other noNorth[facility] Other Start: 80-63-7516Vmbhwr outpatient new 45 minutes Bandar Loreto [place] OrthopedicsStart: 03-11-2023 End: 95-48-7953Lbpbcko encounter procedureServices Family [facility] Work Phone: [facility] C[facility]-Sleep Lab Work Phone: Start: 03-11-2023 End: 80-09-4502dylxgwzoagRecxnyaw Family [facility] Work Phone: [facility] Work Phone: start: 19-36-8644Nvmyll outpatient new 30 minutesKamal [facility] SouthStart: 03-07-2023 End: 28-98-5336lqyhriheukFDIXYNKE E PERRYFacility:EU [place]kyStart: 03-07-2023 End: 21-73-3062Wktdull encounter procedureJENNIFER E DELMAR [facility] Start: 03-05-2023 End: 30-07-7140Amrcaqayw department patient visitServices [facility] Work Phone: [facility]-Emergency Room Work Phone: Start: 03-04-2023 End: 20-12-0051hwnmgmhgfwUqnuvzcl Family [facility] Work Phone: [facility] Work Phone: Start: 03-04-2023 End: 98-53-4975Cbozfve encounter procedureServices [facility] Work Phone: [facility] C[facility]-Respiratory Therapy Work Phone: Start: 02-21-2023 End: 91-09-2564rqxsjzskhcWO DONNA MARKER .Facility:V1Kzmak: 02-05-2023 End: 78-41-7053Cxedfqjxw department patient visitServices Family [facility] Work Phone: [facility]-Emergency Room Work Phone: Start: 01-14-2023 End: 14-87-2927Swaayptfy department patient visitServices [facility] Work Phone: [facility]-Emergency Room Work Phone: Start: 17-53-2042vufxmuqmqkVCYOCZZE PERRYFacility:EU [place]kyStart: 01-10-2023 End: 13-39-1313ikzqiwmvraKnvtjgbo Family [facility] Work Phone: [facility] Work Phone: Start: 01-10-2023 End: 21-33-8463Jbvyndf encounter procedureServices [facility] Work Phone: [facility] C[facility]-Lab Main [place] Work Phone: Start: 01-10-2023 End: 38-77-0768Tswjocpbm department patient visitServices Family [facility] Work Phone: [facility] C[facility]-Emergency Room Work Phone: Start: 01-10-2023 End: 99-27-1723Veuxphhyz department patient visitServices Family [facility] Work Phone: [facility] Ctr-Emergency Room Work Phone: Start: 12-27-2022 End: 75-11-5781Meoccfasq department patient visitServices Family [employer] Work Phone: [facility] Ctr-Emergency Room Work Phone: Start: 12-26-2022 End: 81-83-0145Riliowbuo department patient visitServices Family [facility] Work Phone: [facility] Ctr-Emergency Room Work Phone: Start: 12-24-2022 End: 52-41-6919Rmypsmwic department patient visitServices Family [facility] Work Phone: [facility] Ctr-Emergency Room Work Phone: Start: 12-05-2022 End: 47-55-0624Baqddpgmh department patient visitServices Family [facility] Work Phone: [facility] Medical Ctr-Emergency Room Work Phone: Start: 11-08-2022 End: 05-79-6717duzcptoplhJMVXM PARKERFacility:G9Zcxzb: 09-24-2022 End: 11-46-1982xygvpbanryTRIPCL JOSH VALLADARES IIFacility:[facility] Daytontart: 09-24-2022 End: 97-08-5048Gyltosayh department patient visitServices [employer] [facility] Work Phone: [facility] Ctr-Emergency Room Work Phone: Start: 09-13-2022 End: 79-27-9861Lcaxckyjp department patient visitServices [facility] Work Phone: [facility] Ctr-Emergency RoomStart: 09-07-2022 End: 84-44-0947Otfwbvxbx department patient visitServices [facility] Work Phone: [facility] Ctr-Emergency RoomStart: 08-04-2022 End: 48-48-2448Njbrgtwhl department patient visitServices [facility] Work Phone: [facility] Ctr-Emergency RoomStart: 07-14-2022 End: 16-12-4713Tzevkemmt department patient visitDO Stephanie Arroyoi Work Phone: [facility] Ctr-Emergency RoomStart: 07-09-2022 End: 22-96-7902Dsgotmxns to same day surgery centerDO Stephanie Cruzi Work Phone: [facility] Ctr-Surgery Center Main CampusStart: 07-05-2022 End: 37-04-2122Shhlncc encounter procedureDO Stephanie Arroyoi Work Phone: [facility] Ctr-Lab Main CampusStart: 06-25-2022 End: 96-89-8559Tnxyfozc ReferredDO Stephanie Visci Work Phone: [facility] Ayu-Rcq-Dodicoby Testing Start: 06-25-2022 End: 19-24-0065Hagynct encounter procedureDO Stephanie Visci Work Phone: [facility] Xiv-Rkl-Yspfuaod Testing Start: 06-04-2022 End: 41-60-2961Mioqsqnik department patient visitDO Stephanie Arroyoi Work Phone: [facility] Ctr-Emergency RoomStart: 05-31-2022 End: 30-60-0146Cpiyckmjl department patient visitDO Stephanie Babcock Work Phone: [facility]-Emergency RoomStart: 05-29-2022 End: 12-49-5547Lyefzueiqn and management of inpatientDO Stephanie Babcock Work Phone: [facility]-[address] [place] [address] Start: 94-47-9392bqsmwudookKzwccq McWilliams RNNURSE ON CALLComment on above: Ovarian Cyst; Vaginal BleedingStart: 04-06-2022 End: 05-32-1953Ebvhswpdt department patient visitDO Stephanie Babcock Work Phone: [facility]-Emergency RoomStart: 04-10-2018 End: 92-40-6251VqfsqvqdclAEKIPGKane County Human Resource SSDtart: 01-09-2018 End: 32-79-2673CcsldnagniLMVXSPKane County Human Resource SSDtart: 05-27-2004 Evaluation and management of inpatientDO Stephanie Babcock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 [facility] Other Hospital Discharge instructions Additional Instructions Follow-up with your primary care doctor Return to ED if develop worsening symptoms or concernsLouis Stokes [facility] Work Phone: Hospital Discharge instructions Additional Instructions Follow up with your primary care doctor Return to the ED if you develop worsening symptoms or concernsLouis Stokes Cleveland [facility] Work Phone: Hospital Discharge instructions Additional Instructions Return for worsening symptoms Follow-up family doctorLouis Stokes [facility] Work Phone: Hospital Discharge instructions Additional Instructions Take Zofran as prescribed for nausea vomiting. Try to get at least 8 hours of sleep at night to help prevent recurrent symptoms. Follow-up with your PCP for recheck of your blood pressure within 5 to 7 days.[facility] Work Phone: Hospital Discharge [...] bowel control high fever or any other concernsMercer County Community Hospital Work Phone: Hospital Discharge instructions Additional [...] any more questions, please call Dr. Paniagua tomorrow.[facility] Work Phone: hospital Discharge instructions Additional Instructions No specific cause [...] leg I do want you to come back.[facility] Work Phone: Hospital Discharge instructions Additional [...] chest pain high fever or any other concernsMercer County Community Hospital Work Phone: Hospital Discharge instructions Additional Instructions Take Motrin Tylenol as needed for recurrent headache. Apply the nystatin cream for yeast infection. Follow-up with Dr. Juarez for any ongoing symptoms.[facility] Work Phone: Hospital Discharge instructions Additional Instructions Take Motrin Tylenol as needed for [facility] Work Phone: Progress note No data available for this section [facility] [place] Summary Purpose Family History No Family History Records Found Relationship Condition Age at Onset Recorded Date/T justin Not Specified Epilepsy Unknown Chronic obstructive pulmonary diseaseUnknownSleep apneaUnknownScoliosisUnknown PrediabetesUnknownMalignant neoplasm of ovaryUnknownfatherCongestive heart failureUnknownHypertensionUnknown Relationship Condition Age at Onset Recorded Date/T justin Not Specified Epilepsy Unknown Chronic obstructive pulmonary diseaseUnknownSleep apneaUnknownScoliosisUnknown PrediabetesUnknownMalignant neoplasm of ovaryUnknownfatherCongestive heart failureUnknownHypertensionUnknownfamily memberDeceasedUnknownOverdoseUnknown brotherDeceasedUnknownfatherHistory of strokeUnknownHeart diseaseUnknown grandparentDeceasedUnknownAutomobile accidentUnknowngrandparentOverdoseUnknown DeceasedUnknowngrandparentMyocardial infarctionUnknown Relationship Condition Age at Onset Recorded Date/T justin mother Epilepsy Unknown Chronic obstructive pulmonary diseaseUnknownSleep apneaUnknownScoliosisUnknown PrediabetesUnknownMalignant neoplasm of ovaryUnknownfatherCongestive heart failureUnknownHypertensionUnknownauntDeceasedUnknownOverdoseUnknownbrother DeceasedUnknownfatherHistory of strokeUnknownHeart diseaseUnknowngrandparent DeceasedUnknownAutomobile accidentUnknowngrandparentOverdoseUnknownDeceased UnknowngrandparentMyocardial infarctionUnknown Advance Directives No Advanced Directives Records FoundDocuments on File TypeDate RecordedPatient RepresentativeExplanationAdvance Directive(s)08/22/2018 5:28 PMAdvance Directive(s)04/10/2018 6:43 AM Advance Directive Response Recorded Date/ Time Advance Directives No January 18 5:28pm Advance Directive Response Recorded Date/ Time Advance Directives No January 18 4:28pm Chief Complaint and Reason for Visit Chief Complaint ^ SOB, dizzy, cough, sore throat, fever & chills vaginal bleeding Head pressure,feeling cloudy Weakness Menorrhagia, Pelvic Pain, Pelvic Mass, AdenomyosisReason for VisitAdenomyosis Chronic pelvic pain in female COVID-19 DUB (dysfunctional uterine bleeding) Menometrorrhagia Chief Complaint ^ vaginal bleeding Head pressure,feeling cloudy Weakness Menorrhagia, Pelvic Pain, Pelvic Mass, Adenomyosis D64.9Reason for VisitAdenomyosis Chronic pelvic pain in female COVID-19 DUB (dysfunctional uterine bleeding) Menometrorrhagia Chief Complaint ^ vaginal bleeding Head pressure,feeling cloudy Weakness Menorrhagia, Pelvic Pain, Pelvic Mass, Adenomyosis D64.9 Menorrhagia, Pelvic Pain, Pelvic Mass, AdenomyosisReason for VisitAdenomyosis Chronic pelvic pain in female COVID-19 DUB (dysfunctional uterine bleeding) Menometrorrhagia Chief Complaint ^ vaginal bleeding Head pressure,feeling cloudy Weakness Menorrhagia, Pelvic Pain, Pelvic Mass, Adenomyosis D64.9 Menorrhagia, Pelvic Pain, Pelvic Mass, Adenomyosis NECK/HEAD PAINReason for VisitAdenomyosis Chronic pelvic pain in female COVID-19 DUB (dysfunctional uterine bleeding) Menometrorrhagia Chief Complaint ^ vaginal bleeding Head pressure,feeling cloudy Weakness Menorrhagia, Pelvic Pain, Pelvic Mass, Adenomyosis D64.9 Menorrhagia, Pelvic Pain, Pelvic Mass, Adenomyosis NECK/HEAD PAIN back pain, L elbow painReason for VisitAdenomyosis Chronic pelvic pain in female COVID-19 DUB [...] section and content) DATE CREATED AUTHOR 04/15/2018 [facility] DATE CREATED AUTHOR AUTHOR'S ORGANIZ ATION 04/18/2018 [facility] DATE CREATED AUTHOR AUTHOR'S ORGANIZ ATION 05/31/2022 [facility] DATE CREATED AUTHOR AUTHOR'S ORGANIZ ATION 09/24/2022 [facility] DATE CREATED AUTHOR AUTHOR'S ORGANIZ ATION 02/25/2023 [facility] DATE CREATED AUTHOR AUTHOR'S ORGANIZ ATION 03/09/2023 [facility] DATE CREATED AUTHOR AUTHOR'S ORGANIZ ATION 03/07/2025 [facility] DATE CREATED AUTHOR AUTHOR'S ORGANIZ ATION 04/01/2025 [facility] [facility] DATE CREATED AUTHOR AUTHOR'S ORGANIZ ATION 04/25/2025 [facility] DATE CREATED AUTHOR AUTHOR'S ORGANIZ ATION 05/28/2025 [facility] [employer] [facility] Source Comments (unrecognize d section and content) In the event this informatio n is protected by the Federal Confidentiality of Alcohol and Drug Abuse Patient Records regulations: The Federal rules restrict any use of the information to criminally investigate or prosecute any alcohol or drug abuse patient.[facility] Reason for Visit (unrecogniz ed section and content) ReasonCommentsOvarian CystVaginal BleedingReasonCommentsGynecologic ExamPt presents for yearly.ReasonCommentsTrauma/complex Medical Situation Care Teams (unrecognized sec tion and content) Team Status: Active Member Role Status Dates Services Family [facility] Primary Care Provider Active Team Status: Active Member Role Status Dates Stephanie Babcock DO Attending Provider Active Team Status: Inactive Member Role Status Dates Services Family [facility] Primary Care Provider Active Ayad Jason ProviderActive Team Status: Inactive Member Role Status Dates Services Family [facility] Primary Care Provider Active Andressa Stewart ProviderActive Team Status: Inactive Member Role Status Dates Services [facility] Primary Care Provider Active Bhumika Dominguez Jr ProviderActiveCarina Mendes DO RESActive Team Status: Inactive Member Role Status Dates Services [facility] Primary Care Provider Active Ayad Valenzuela ProviderActive Team Status: Inactive Member Role Status Dates Services Family [facility] Primary Care Provider Active MITCHELL Moon-BCEmerpaul ProviderActiveTeam MemberRelationship SpecialtyStart DateEnd Annette Wall II PCP - GeneralFamily Practice04/05/17 Latonya Perkins MD [address] [place] [address] ReferringOB/GYN04/05/17 Team Status: Inactive Member Role Status Dates Services Family Health Primary Care Provider Active Stephanie Babcock DOAttmorris ProviderActive Team Status: Inactive Member Role Status [facility] Primary Care Provider Active Ayad Camacho ProviderActiveDanianabela Rivera DO RESActive Team Status: Inactive Member Role Status [facility] Primary Care Provider Active Ayad Greco ProviderActive Team Status: Inactive Member Role Status [facility] Services Family [facility] Primary Care Provider Active Bhumika Dominguez Jr ProviderActiveRichmichael Babcock , Admit Provider, Attending ProviderActive Team Status: Inactive Member Role Status Dates Larissa Resendiz APRN BAKERY CLERK-C Primary Care Provide r Active Ronald Guerrero ProviderActive Team Status: Active Member Role Status Dates Larissa Resendiz APRN BAKERY CLERK-C Primary Care Provide r Active Team Status: Inactive Member Role Status Dates Stephanie Babcock DO Attending Provider Active Larissa Resendiz APRN BAKERY CLERK-CPrimary Care ProviderActive Team Status: Inactive Member Role Status Dates Farhat Castro DO Emergency Provider Active DO Jonah Ford [facility] ProviderActive Team Status: Inactive Member Role Status [facility] Services Family [facility] Primary Care Provider Active Bhumika Flores ProviderActive Team Status: Inactive Member Role Status Dates Services Family [facility] Primary Care Provider Active Bhumika Dominguez Jr ProviderActive Team Status: Active Member Role Status [facility] Services Family [facility] Primary Care Provider Active Bhumika Dominguez Jr ProviderActive Team Status: Inactive Member Role Status Dates Services Family [facility] Primary Care Provider Active Larissa Resendiz APRN BAKERY CLERK-CAttending ProviderActive Team Status: Inactive Member Role Status Dates Services Family [facility] Primary Care Provider Active Ayad Koo ProviderActive Team Status: Inactive Member Role Status Dates Services Family [facility] Primary Care Provider Active Ayad Camacho ProviderActive Team Status: Inactive Member Role Status Dates Services Family [facility] Primary Care Provider Active Calli Dawson ProviderActiveLarissa Resendiz , UZMA BAKERY CLERK-C Referring ProviderActive Team Status: Inactive Member Role Status Dates Services Family Health Primary Care Provider Active Andressa Oliva ProviderActive Team Status: Active Member Role Status Dates Stephanie Babcock DO Attending Provider Active Sta rt: May 27[birth year] 2004 Team Status: Inactive Member Role Status Dates Services Family Health Primary Care Provider Active Start: November 15, 2023 End: November 15, 2023Bhumika Flores ProviderActiveStart: November 15, 2023 End: November 15, 2023 Team Status: Inactive Member Role Status Dates Larissa Resendiz , UZMA BAKERY CLERK-C Attending Provider A ctive Start: February 19, 2024 End: February 19, 2024 Team Status: Inactive Member Role Status Dates Services Family Health Primary Care Provider Active Start: February 22, 2024 End: February 21rtAndressa Barnes ProviderActiveStart: February 22, 2024 End: February 22, 2024 Team Status: Inactive Member Role Status Dates Services Family Health Primary Care Provider Active Start: March 30, 2024 End: March 31, 2024Ayad Valenzuela ProviderActiveStart: March 30, 2024 End: March 31, 2024Team MemberRelationshipSpecialtyStart DateEnd Date Unallocated, [place] [address] [facility] - [facility]Team MemberRelationshipSpecialtyStart DateEnd Date Unallocated, [place] [address] [facility] Team Status: Inactive Member Role Status Dates Services [facility] Primary Care Provider Active Start: March 08, 2025 End: March 09, 2025Ayad Valenzuela ProviderActiveStart: March 08, 2025 End: March 09, 2025 [...] ered Medications (unrecognized section and content) Medication Order04/24/// iohexol (OMNIPAQUE) 350 MG/ML injection (COMPLETED) 100 mL, Intravenous Push, Once at Radiology exam, 1 dose, Starting on Sat04/26/25 at 2024, Until Sat04/26/25 at 2017, Imaging Protocol Orders * 2018 (Bolus given - Provider: Shreya Pool) [...] BE BASED ON THE PRIMARY CLINICAL RECORDS. [facility]. provides no warranty or guarantee of the accuracy or completeness of information in this document.
== END 2025-10-05 01:28 | disposition home or self-care (01) ==
LOC: ER 01:00
PROVIDERS: Emergency Provider Internal Medicine
DX: N61.1 Abscess of the breast and nipple (principal); F17.200 Nicotine dependence, unspecified, uncomplicated
CPT/HCPCS: 99283; Q0162